=== PATIENT | female | born 1955 | race Caucasian/White ===

== ENCOUNTER 2017-04-19 14:55 | Emergency (ER) | payer SELFPAY ==
[~2017-04-19] VITALS: Ht 152.4 cm; Wt 80.0 kg
[2017-04-19 14:56] VITALS: Ht 152.4 cm; Wt 80.0 kg
[2017-04-19] MEDS ORDERED: ACET500C5 PO (15:13)
--- NOTE | 2017-04-19 15:18 | ERD ---
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 Patient is here recently from [facility]. Patient does not have a primary care doctor yet. Daughter states that she has had sores in her mouth for the last month. She states that she used a mouthwash [place] which helped however she does not have it here with her. She states that the sores are all around her mouth and they are painful. Denies difficulty breathing or swallowing. Denies cough. Patient also states that she took a medicine [id number] for her left leg pain. She states that she has had this pain for the last 5 years and associates it with arthritis. Denies swelling or erythema. States that she uses a cane to walk around. Her pain is not new. Denies chest pain or cough or shortness of breath or difficulty breathing. Denies headache or dizziness. Denies neck pain or neck stiffness or biliary vision. ROS All systems reviewed and are negative except as per history of present illness. Medications Home Meds Active Scripts Acetaminophen* (Tylophen*) 500 Mg Capsule, 1 CAP PO Q6H Y for PAIN AND OR ELEVATED TEMP, #20 CAP Prov:LEXA AKBAR PA-C 04/19/17 PMhx/Soc History of Surgery: No Anesthesia Reaction: No Hx Neurological Disorder: No Hx Respiratory Disorders: No Hx Cardiac Disorders: Yes (Hypertension) Hx Miscellaneous Medical Probl: Yes (Diabetes) Hx Alcohol Use: No Hx Substance Use: No Hx Tobacco Use: No FmHx Family History: No coronary disease, No diabetes, No other Physical Exam Vitals Vital Signs Date Time Temp Pulse Resp B/P Pulse Ox O2 Delivery O2 Flow Rate FiO2 04/19/17 14:56 97.6 77 18 187/80 97 Physical Exam GENERAL: Well-developed, well-nourished female. Appears in no acute distress. HEAD: Normocephalic, atraumatic. EYES: Pupils are equally reactive bilaterally. EOMs grossly intact. No conjunctival erythema. ENT: Moist mucous membranes. No uvula deviation. No kissing tonsils. No exudates. Multiple discoloration seen on all the teeth. Small mouth sores on the pupil and lower lip. NECK: Supple. No lymphadenopathy or thyromegaly. No meningismus. negative kernig. negative brudinski. LUNG: Clear to auscultation bilaterally. No rhonchi, wheezing, rales or coarse breath sounds. HEART: Regular rate and rhythm. No murmurs, rubs or gallops. BACK: No midline tenderness. Extremities: Equal pulses bilaterally. No peripheral clubbing, cyanosis or edema. No unilateral leg swelling. No erythema. NEUROLOGIC: Alert and oriented. Moving all four extremities. 5/5 strength in all extremities. Normal speech. Steady gait using a cane SKIN: Normal color. Warm and dry. No rashes or lesions. Capillary refill < 2 seconds Procedures/MDM ER COURSE: I kept the patient and/or family informed of laboratory and diagnostic imaging results throughout the emergency room course. MEDICAL DECISION MAKING: This is a 7-year-old female with a past medical history of hypertension and diabetes who presents with chronic mouth sores and chronic leg pain. Vital signs were reviewed. Patient is afebrile. Patient is not hypoxic. Patient is not toxic or ill-appearing. Patient has mild mouth sores. Patient does not show signs of respiratory distress. Patient's chronic leg pain is likely related to her arthritis. No x-rays or imaging studies were necessary at this time. Patient does not have headache or dizziness. Patient has slightly elevated blood pressure. Patient does not show signs of hypertensive urgency, emergency or endorgan damage Low suspicion for intracranial hemorrhage, meningitis, intracranial mass, concussion, temporal arteritis, stroke, elevated intracranial pressure, seizure. Low suspicion for dislocation, fracture, septic joint, compartment syndrome, osteomyelitis, avascular necrosis, DVT, Achilles tendon rupture, cellulitis. At this time, unable to rule out any tendon and ligament injuries. DISCHARGE: At this time, patient is stable for discharge and outpatient management with no new complaints during the ER course. Patient was sent home with Tylenol and Magic mouthwash written on a prescription. Names of clinics were given to the area. Patient advised to follow-up with the primary care doctor and establish care for her chronic symptoms. Patient will be discharged home with instructions to recheck for new or worsening symptoms such as fever, nausea, weakness, LOC and to follow up with primary care in the next 1-2 days. Patient was advised to return to the ER for any new or worsening symptoms. Plan was discussed and patient and/or family understands and agrees. Home instructions were given. Departure Diagnosis: Primary Impression: Leg pain Laterality: left Qualified Code: M79.605 - Pain of left lower extremity Additional Impression: Mouth sores Condition: Stable Patient Instructions: When Your Child Has Mouth Sores Referrals: COMMUNITY CLINICS YOU HAVE RECEIVED A MEDICAL SCREENING EXAM AND THE RESULTS INDICATE THAT YOU DO NOT HAVE A CONDITION THAT REQUIRES URGENT TREATMENT IN THE EMERGENCY DEPARTMENT. FURTHER EVALUATION AND TREATMENT OF YOUR CONDITION CAN WAIT UNTIL YOU ARE SEEN IN YOUR DOCTORS OFFICE WITHIN THE NEXT 1-2 DAYS. IT IS YOUR RESPONSIBILITY TO MAKE AN APPOINTMENT FOR FOLOW-UP CARE. IF YOU HAVE A PRIMARY DOCTOR --you should call your primary doctor and schedule an appointment IF YOU DO NOT HAVE A PRIMARY DOCTOR YOU CAN CALL OUR PHYSICIAN REFERRAL HOTLINE AT IF YOU CAN NOT AFFORD TO SEE A PHYSICIAN YOU CAN CHOSE FROM THE FOLLOWING [facility] [address] [facility] [address] [facility] [address] [facility] [address] [facility] [address] [facility] [facility] [facility]. [address] Additional Instructions: Call your primary care doctor TOMORROW for an appointment during the next 1-2 days.See the doctor sooner or return here if your condition worsens before your appointment time. LEXA AKBAR PA-C Apr 19, 2017 15:18
== END 2017-04-19 15:13 | disposition home or self-care (01) ==
LOC: E/R 14:55
DX: M79.605 Pain in left leg (principal); K13.79 Other lesions of oral mucosa; I10 Essential (primary) hypertension; E11.9 Type 2 diabetes mellitus without complications
CPT/HCPCS: 99283

== ENCOUNTER 2017-08-24 18:20 | Inpatient (IN) | payer MEDICAID, OTHER ==
[~2017-08-24] VITALS: Ht 157.5 cm; Wt 75.0 kg
[~2017-08-24 18:20] MED LIST: ACET500C5 PO
[2017-08-24] MEDS ORDERED: PIPER-TAZO 3.375 GM IV (PMX) 100 ML IVPB STA (18:26)
[2017-08-24] MEDS ORDERED: SOD CHLORIDE 0.9% 1,000 ML IV STA ×2 (18:26)
[2017-08-24] MEDS ORDERED: VANCOMYCIN 1 GM (PMX) 250 ML IVPB STA (18:26)
[2017-08-24] MEDS ORDERED: ACETAMINOPHEN 325 MG TAB PO ONE (18:30)
--- NOTE | 2017-08-24 19:15 | RADRPT ---
PROCEDURE: US left lower extremity veins. CLINICAL INDICATION: Left leg pain and swelling. TECHNIQUE: Multiple longitudinal and transverse images of the left lower extremity veins were obta ined with gutiérrez scale and color Doppler imaging. The common femoral vein, femoral vein, and popliteal vein were evaluated. 2D grayscale measurements with compression sonography, pulsed Doppler, color D oppler, and pulsed Doppler with augmentation. COMPARISON: No prior studies are available for comparison. FINDINGS: The left common femoral, femoral and popliteal veins are normally compressible throughout. Color fl ow demonstrates normal filling of the vessels. Normal waveforms are visualized and there is normal response to augmentation. IMPRESSION: 1. No evidence of deep vein thrombosis involving the left lower extremity. RPTAT: QQ .Justice Carrizales MD, MD Date Time Electronically viewed and signed by .Justice Carrizales MD, on 08/24/2017 19:15 .R/
[2017-08-24] MEDS ORDERED: SOD CHLORIDE 0.9% 250 ML IV ONE (19:21)
--- NOTE | 2017-08-24 19:23 | RADRPT ---
PROCEDURE: XR Chest. CLINICAL INDICATION: Chest pain, sepsis TECHNIQUE: A frontal view of the chest was performed. COMPARISON: None FINDINGS: Mild cardiomegaly, vascular congestion, and bibasilar atelectasis are present. No signs of pleural f luid or pneumothorax are seen. The osseous structures and soft tissues are unremarkable. IMPRESSION: Mild cardiomegaly, vascular congestion, and bibasilar atelectasis. RPTAT: QQ .Cindy Beckham MD, MD Date Time Electronically viewed and signed by .Cindy Beckham MD, on 08/24/2017 19:23 .F/
[2017-08-24] MEDS ORDERED: MET25 PO (19:29)
[2017-08-24] MEDS ORDERED: ACETAMINOPHEN 325 MG TAB PO PRN (19:30)
[2017-08-24] MEDS ORDERED: LORA10TA3 PO (19:30)
[2017-08-24] MEDS ORDERED: OMEP20CA16 PO (19:30)
[2017-08-24] MEDS ORDERED: GABA300C16 PO (19:30)
[2017-08-24] MEDS ORDERED: ONDANSETRON 4 MG INJ IV PRN (19:30)
[2017-08-24] MEDS ORDERED: AMLO5TAB4 PO (19:31)
[2017-08-24] MEDS ORDERED: LOSA50TA6 PO (19:31)
[2017-08-24] MEDS ORDERED: INSU100V2 SQ (19:32)
[2017-08-24] MEDS ORDERED: NYST1000 PO (19:33)
[2017-08-24] MEDS ORDERED: BISO10TA16 PO (19:34)
[2017-08-24] MEDS ORDERED: FER325 PO (19:36)
[2017-08-24] MEDS ORDERED: CALC600T24 PO (19:37)
[2017-08-24] MEDS ORDERED: FLUC200T52 PO (19:37)
[2017-08-24] MEDS ORDERED: SULF500T5 PO (19:38)
--- NOTE | 2017-08-24 20:18 | ERA ---
ER Documentation Chief Complaint Date/Time DATE: 08/24/17 TIME: 20:15 Chief Complaint LEFT LOWER LEG REDNESS AND SWELLING FOR THE PAST YEAR . FEVER NOTED. HPI Patient is a 61-year-old female with hypertension diabetes who presents with redness of the left leg. The patient has been on antibiotics as an outpatient. Leg is hot to touch. The symptoms started 4 days ago but were worse last night and this morning. The patient has subjective fever. She is shaking all over. Upon review of old medical records the patient one previous visit to the ER in April 2017. ROS All systems reviewed and are negative except as per history of present illness. Medications Home Meds Reported Medications Sulfasalazine* (Sulfazine*) 500 Mg Tablet, 500 MG PO BID, TAB 08/24/17 Fluconazole* (Fluconazole*) 200 Mg Tablet, 200 MG PO DAILY, TAB 08/24/17 Calcium Carbonate* (Calcium Carbonate*) 600 MG Ca Tab, 600 MG PO BID, TAB 08/24/17 Ferrous Sulfate* (Ferrous Sulfate*) 325 Mg Tabec, 325 MG PO TID, TAB 08/24/17 Bisoprolol Fumarate* (Bisoprolol Fumarate*) 10 Mg Tablet, 10 MG PO DAILY, TAB 08/24/17 Nystatin (Nystatin) 100,000 Unit/1 Ml Oral.susp, 5 ML PO QID, #60 ML 08/24/17 Insulin Lispro Protamin/Lispro (Humalog Mix 50-50 Vial) 100 Unit/1 Ml Vial, 10 UNIT SQ BID, VIAL 08/24/17 Losartan Potassium* (Losartan Potassium*) 50 Mg Tablet, 50 MG PO DAILY, TAB 08/24/17 Amlodipine Besylate* (Norvasc*) 5 Mg Tablet, 5 MG PO DAILY, TAB 08/24/17 Gabapentin* (Gabapentin*) 300 Mg Capsule, 300 MG PO BID, #60 CAP 08/24/17 Loratadine* (Loratadine*) 10 Mg Tablet, 10 MG PO DAILY, #30 TAB 08/24/17 Omeprazole* (Omeprazole*) 20 Mg Capsule.dr, 20 MG PO DAILY, #30 CAP 08/24/17 Methotrexate* (Methotrexate*) 2.5 Mg Tab, 10 MG PO Q7D, TAB 08/24/17 Discontinued Scripts Acetaminophen* (Tylophen*) 500 Mg Capsule, 1 CAP PO Q6H Y for PAIN AND OR ELEVATED TEMP, #20 CAP Prov:LEXA AKBAR PA-C 04/19/17 Allergies Allergies: Coded Allergies: No Known Allergy (Unverified , 08/24/17) PMhx/Soc History of Surgery: No Anesthesia Reaction: No Hx Neurological Disorder: No Hx Respiratory Disorders: No Hx Cardiac Disorders: Yes (Hypertension) Hx Psychiatric Problems: No Hx Miscellaneous Medical Probl: Yes (Diabetes) Hx Alcohol Use: No Hx Substance Use: No Hx Tobacco Use: No Smoking Status: Never smoker Physical Exam Vitals Vital Signs Date Time Temp Pulse Resp B/P Pulse Ox O2 Delivery O2 Flow Rate FiO2 08/24/17 18:28 102.9 91 22 144/65 99 Physical Exam Const: Moderate distress Head: Atraumatic Eyes: Normal Conjunctiva ENT: Normal External Ears, Nose and Mouth. Neck: Full range of motion..~ No meningismus. Resp: Clear to auscultation bilaterally Cardio: Regular rate and rhythm, no murmurs Abd: Soft, non tender, non distended. Normal bowel sounds Skin: Swelling left lower extremity with redness of the left calf and warmth to touch consistent with cellulitis Back: No midline or flank tenderness Ext: Left lower extremity swelling Neur: Awake and alert Psych: Normal Mood and Affect Result Diagram: 08/24/17184908/24/171849 Results 24 hrs Laboratory Tests Test 08/24/17 18:50 White Blood Count 0.710^3/ul Red Blood Count 1.9310^6/ul Hemoglobin 5.7g/dl Hematocrit 17.1% Mean Corpuscular Volume 88.6fl Mean Corpuscular Hemoglobin 29.5pg Mean Corpuscular Hemoglobin Concent 33.3g/dl Red Cell Distribution Width 15.8% Platelet Count 5710^3/UL Mean Platelet Volume 13.2fl Neutrophils % % Lymphocytes % % Monocytes % % Eosinophils % % Basophils % % Nucleated Red Blood Cells % 0.0/100WBC Neutrophils # 10^3/ul Lymphocytes # 10^3/ul Monocytes # 10^3/ul Eosinophils # 10^3/ul Basophils # 10^3/ul Nucleated Red Blood Cells # 10^3/ul Pathologist Review (Hematology) YES Prothrombin Time 15.6Sec Prothrombin Time Ratio 1.2 INR International Normalized Ratio 1.23 Activated Partial Thromboplast Time 35.4Sec Sodium Level 128mmol/L Potassium Level 4.0mmol/L Chloride Level 103mmol/L Carbon Dioxide Level 17mmol/L Anion Gap 12 Blood Urea Nitrogen 44mg/dl Creatinine 4.20mg/dl Glucose Level 190mg/dl Lactic Acid Level 1.7mmol/L Calcium Level 7.8mg/dl Total Bilirubin mg/dl Direct Bilirubin mg/dl Indirect Bilirubin mg/dl Aspartate Amino Transf (AST/SGOT) 322IU/L Alanine Aminotransferase (ALT/SGPT) 110IU/L Alkaline Phosphatase 174IU/L Troponin I 0.085ng/ml Total Protein 6.8g/dl Albumin 2.9g/dl Globulin 3.90g/dl Albumin/Globulin Ratio 0.74 Current Medications Medications (Trade) Dose Ordered Sig/Pauline Route PRN Reason Start Time Stop Time Status Last Admin Dose Admin Vancomycin HCl 250 ml @ 125 mls/hr ONCE STAT IVPB 08/24/17 18:26 08/24/17 20:25 Piperacillin Sod/ Tazobactam Sod 100 ml @ 100 mls/hr ONCE STAT IVPB 08/24/17 18:26 08/24/17 19:25 DC 08/24/17 19:05 Sodium Chloride 1,000 ml @ 1,000 mls/hr Q1H STAT IV 08/24/17 18:26 08/24/17 19:25 DC 08/24/17 19:04 Sodium Chloride (NS) 1,000 ml @ 1,000 mls/hr Q1H STAT IV 08/24/17 18:26 08/24/17 19:25 DC 08/24/17 19:04 Acetaminophen (Tylenol Tab) 650 mg ONCE ONCE PO 08/24/17 18:30 08/24/17 18:32 DC 08/24/17 19:05 Ondansetron HCl (Zofran Inj) 4 mg BRIDGE ORDER PRN IV NAUSEA AND/OR VOMITING 08/24/17 19:30 08/25/17 19:29 Acetaminophen 650 mg 650 mg ER BRIDGE PRN PO MILD PAIN/FEVER 08/24/17 19:30 08/25/17 19:29 Sodium Chloride (NS) 250 ml @ 0 mls/hr Q0M ONCE IV 08/24/17 19:21 08/24/17 19:22 DC Procedures/MDM EKG read by me: Rate/Rhythm: Regular rate and rhythm at a normal rate Intervals: Normal Impression: No evidence of ischemia or arrhythmia Chest x-ray shows no pneumonia or pneumothorax per radiology. Admit MDM: Patient's infectious symptoms have not stabilized and the patient is at risk of rapid decompensation. The patient will be admitted for careful hydration, antibiotic therapy, and infectious source control. Severe Sepsis criteria: Infectious source: Cellulitis End organ damage indicated by: Creatinine greater than 2 Sepsis Management: Time of recognition of sepsis: Upon arrival Within 3 hours of recognition: Blood cultures x 2 before broad-spectrum antibiotics: Yes 30 ml/kg NS bolus Completed Initial lactate 1.7 Repeat lactate pending Time of recognition of septic shock: No septic shock Septic Shock Assessment: Any lactic acid > 4.0 No Persistent hypotension (SBP < 90 or 40 mmHg drop, MAP < 65) despite 30 mL/kg IV fluid bolus No Volume Re-assessment for Septic Shock (post 30 ml/kg bolus): No septic shock at this time Persistent Hypotension Treatment: Comfort care No Central line Not Required Vasopressor started Not required I considered further perfusion assessment with CVP measurement, SCVO2, bedside ultrasound volume assessment, passive leg raise, trial of further fluid bolus. And proceeded with 30 ml/kg fluid bolus of NSS, broad spectrum antibiotics, and admission. The patient has pancytopenia and will be given a transfusion of 2 units of packed red blood cells. Accepting Care Team Current data and ongoing care discussed. Admitting Physician: Dr. Wayne from the panel team as the patient has HCLA risk and insurance manager(s): None Outstanding Data: Culture results and repeat lactic acid Critical Care: Critical care time 35 minutes excluding all billable procedures Emergent fluid management while maintaining close respiratory support. Provision of immediate and broad-spectrum antibiotic therapy. Simultaneous assessment for possible sources in order to direct targeted therapy. Consideration for invasive and chemical support to prevent cardiopulmonary collapse. Departure Diagnosis: Primary Impression: Severe sepsis Additional Impressions: Acute renal failure Qualified Code: N17.9 - Acute renal failure, unspecified acute renal failure type Anemia Qualified Code: D64.9 - Anemia, unspecified type Cellulitis Qualified Code: L03.116 - Cellulitis of left lower extremity Pancytopenia Condition: Serious HUMPHREY RICKS MD Aug 24, 2017 20:17
[2017-08-24] MEDS ORDERED: LORAZEPAM 2 MG INJ IV ONE (20:30)
[2017-08-25] VITALS (7 sets, daily range): BP systolic 128–180; BP diastolic 60–83; PULSE 81–110; RESP 18–22; TEMP 98
[2017-08-25] MEDS ORDERED: ALBUTEROL/IPRATROPIUM (NEB) 3 ML AMP HHN PRN (08:00)
[2017-08-25] MEDS ORDERED: ACETAMINOPHEN 325 MG TAB PO PRN (08:00)
[2017-08-25] MEDS ORDERED: NACL 0.9% 3 ML SYG IV SCH (08:00)
[2017-08-25] MEDS ORDERED: VANCOMYCIN IV PER PHARMACY XX SCH (08:00)
[2017-08-25] MEDS ORDERED: CEFEPIME 1GM/50 ML (PMX) 50 ML IVPB SCH (09:00)
[2017-08-25] MEDS ORDERED: NYSTATIN SUSP 100000 UNITS/ML 60 ML BTL PO SCH (09:00)
--- NOTE | 2017-08-25 09:20 | HP ---
Date/Time of Note Date/Time of Note DATE: 08/25/17 TIME: 09:08 Assessment/Plan VTE Prophylaxis VTE Prophylaxis Intervention: SCD's Assessment/Plan Assessment/Plan 1. Sepsis, secondary to left lower extremity cellulitis -IV antibiotic -Follow-up culture results -ID consult 2. Pancytopenia including with anemia and neutropenia: -Neutropenic precaution -Blood transfusion -FOBT -Check for iron, Vit B12, and folate deficiency -Abdominal ultrasound for evaluation of splenomegaly and liver disease -Hematology/oncology consult. Patient may need a bone marrow biopsy -Consider GI consult 3. CKD, likely secondary to -Obtain a renal ultrasound and nephrology consult 4. Abnormal LFTs -Abdominal ultrasound -Hep panel 5. Hyponatremia -NS IVF for now HPI/ROS Admit Date/Time Admit Date/Time Hx of Present Illness This is a 61-year-old female with a history of hypertension, insulin-dependent diabetes, CKD who was brought to the ER for left lower leg swelling and redness. Patient was diagnosed with a cellulitis as outpatient and has been taking antibiotic without significant improvement. She reported fever and generalized weakness. When she presented to the ER, she was febrile with a temperature of almost 103. She has a several lab abnormalities including a hemoglobin of 5.7 with MCV of , sodium 128, BUN 44, creatinine 4.8 AST in the 300s and ALT in the 100s, alk phos 174. Also thrombocytopenic with a platelet of 57 and neutropenic with a WBC of 0.7. Left lower extremity ultrasound was negative for DVT. Denied hematemesis, dark stool, BRBPR or vaginal bleeding. PMH/Family/Social Social History Smoking Status: Never smoker Exam/Review of Systems Vital Signs Vitals Vital Signs Date Time Temp Pulse Resp B/P Pulse Ox O2 Delivery O2 Flow Rate FiO2 08/25/17 08:29 94 20 105/91 100 Room Air 08/25/17 05:10 97.6 Exam Constitutional: other (No acute distress) Head: atraumatic, normocephalic Eyes: EOMI, PERRL Respiratory: clear to auscultation, normal air movement Cardiovascular: nl pulses, regular rate and rhythm Gastrointestinal: soft Extremities: other (Left lower extremity erythema and swelling) Labs Result Diagram: 08/24/17184908/24/171849 Medications Medications Current Medications Ondansetron HCl (Zofran Inj) 4 mg Q6H PRN IV NAUSEA AND/OR VOMITING; Start 10/01 at 08:00 Acetaminophen (Tylenol Tab) 650 mg Q6H PRN PO PAIN LEVEL 1-3 OR FEVER; Start 08/25/17 at 08:00 Morphine Sulfate (morphine) 2 mg Q4H PRN IV SEVERE PAIN LEVEL 7-10; Start 10/01 at 08:00 Amlodipine Besylate (Norvasc) 5 mg DAILY PO ; Start 08/25/17 at 09:00 Bisoprolol Fumarate (Zebeta) 10 mg DAILY PO ; Start 08/25/17 at 09:00 Ferrous Sulfate (Ferrous Sulfate (Ec)) 325 mg TID PO ; Start 08/25/17 at 09:00 Gabapentin (Neurontin) 300 mg BID PO ; Start 08/25/17 at 09:00 Loratadine (Claritin) 10 mg DAILY PO ; Start 08/25/17 at 09:00 Losartan Potassium (Cozaar) 50 mg DAILY PO ; Start 08/25/17 at 09:00 Methotrexate (Methotrexate) 10 mg Q7D PO ; Start 08/25/17 at 08:00; Status UNV Nystatin (Nystatin Susp) 500,000 units QID PO ; Start 08/25/17 at 09:00 Sulfasalazine 500 mg 500 mg BID PO ; Start 08/25/17 at 09:00 Cefepime HCl (Maxipime 1gm/50 ml (Pmx)) 50 ml @ 100 mls/hr Q12 IVPB ; Start at 09:00 DARRYL CORONADO MD Aug 25, 2017 09:20
--- NOTE | 2017-08-25 10:22 | RADRPT ---
PROCEDURE: US Abdomen and retroperitoneal complete. CLINICAL INDICATION: Elevated LFTs TECHNIQUE: Multiple real-time images were acquired of the patient's abdomen and retroperitoneum ut ilizing a high resolution transducer. COMPARISON: None FINDINGS: The liver demonstrates normal echogenicity. The liver is normal in size and no focal solid lesions are seen. The portal vein is patent with normal direction of flow. No intrahepatic biliary dilatat ion is seen. The liver measures 14.5 cm in length. No gallstones are identified within the gallbladder. There is no pericholecystic fluid or gallbladd er wall thickening. The common bile duct measures 4 mm in maximal dimension. The visualized portions of the pancreas are unremarkable. The tail of the pancreas is not seen. The spleen is normal in size. The spleen measures 10.4 cm in length. There is no evidence of ascites. There is a small left pleural effusion. The kidneys are normal in size, and demonstrate normal cortical echogenicity and cortical thickness. The right kidney measures 8.4 cm. The left kidney measures 9.4 cm. There is no evidence of hydro nephrosis. There are no kidney stones. The proximal aorta measures 2.1 cm in transverse dimension. RPTAT: AA IMPRESSION: Normal appearance of the liver. Small left pleural effusion. .Edilberto Bal MD, MD Date Time Electronically viewed and signed by .Edilberto Bal MD, MD on 08/25/2017 10:21 .S/
[2017-08-25] MEDS ORDERED: NYSTATIN SUSP 5 ML CUP PO SCH (13:00)
[2017-08-25] MEDS ORDERED: GLUCAGON 1 MG INJ IM PRN (14:00)
[2017-08-25] MEDS ORDERED: GLUCOSE GEL 15 GRAM TUBE PO PRN ×2 (14:00)
[2017-08-25] MEDS ORDERED: DEXTROSE 50% 50 ML SYRINGE IV PRN (14:00)
[2017-08-25] MEDS ORDERED: GLUCOSE GEL 15 GRAM TUBE BUCCAL PRN (14:00)
[2017-08-25] MEDS: FERROUS SULFATE (EC) 325 MG TAB PO SCH ×3 (14:30→20:34)
[2017-08-25] MEDS: SULFASALAZINE 500 MG TAB PO SCH ×2 (14:30→20:34)
[2017-08-25] MEDS: LORATADINE 10 MG TAB PO SCH (14:30)
[2017-08-25] MEDS: INSULIN ASPART [NOVOLOG] 3 ML PEN SC SCH ×3 (14:30→20:32)
[2017-08-25] MEDS: GABAPENTIN 300 MG CAP PO SCH ×2 (14:30→20:34)
[2017-08-25] MEDS: AMLODIPINE 5 MG TAB PO SCH (14:31)
[2017-08-25] MEDS: LOSARTAN 50 MG TAB PO SCH (14:31)
[2017-08-25] MEDS: BISOPROLOL 5 MG TAB PO SCH (14:32)
[2017-08-25] MEDS: INSULIN GLARGINE [LANtus] 3 ML PEN SC SCH (14:38)
[2017-08-25] MEDS ORDERED: INFLUENZA VIRUS VACCINE 0.5 ML SYG IM* ONE (16:00)
--- NOTE | 2017-08-25 16:15 | PN ---
Date/Time of Note Date/Time of Note DATE: 08/25/17 TIME: 15:59 Assessment/Plan VTE Prophylaxis VTE Prophylaxis Intervention: other Assessment/Plan Assessment/Plan 1. Sepsis, secondary to left lower extremity cellulitis, on vancomycin and cefepime 2. Pancytopenia including with anemia and neutropenia, unclear etiology, 2 units PRBC today, follow up with hematology, Neutropenic precaution 3. Renal failure, likely chronic, follow up with renal US, BMP, consult nephrology 4. Abnormal LFTs, -Abdominal ultrasound, Hep panel 5. Hyponatremia, NS IVF for now 6. Methotrexate was started when she was in [facility], for leg pain about one year ago. she recently moved from [facility] about 6 months ago, i will hold methotrexate since the indication is clear and side effects 7. HTN, antihypertensives 8. DM, on insulin Subjective 24 Hr Interval Summary Free Text/Dictation pain on left leg Exam/Review of Systems Vital Signs Vitals Vital Signs Date Time Temp Pulse Resp B/P Pulse Ox O2 Delivery O2 Flow Rate FiO2 08/25/17 15:25 103.0 107 22 180/74 08/25/17 15:10 Room Air 08/25/17 12:03 100 Exam Constitutional: alert, oriented, well developed Psych: nl mood/affect, no complaints Head: atraumatic, normocephalic Eyes: EOMI, PERRL, nl conjunctiva, nl lids, nl sclera ENMT: nl external ears & nose, nl lips & teeth Neck: non-tender, supple Respiratory: clear to auscultation, normal air movement, No congested cough, No crackles/rales, No diminished breath sounds, No intercostal retraction, No labored breathing, No other, No respirations, No tactile fremitus, No wheezing Cardiovascular: nl pulses, regular rate and rhythm, No S3, No S4, No bruits, No diastolic murmur, No edema, No gallop, No irregular rhythm, No jugular venous distention (JVD), No murmurs/extra sounds, No other, No rub, No systolic murmur Gastrointestinal: nl liver, spleen, non-tender, soft, No ascites, No bowel sounds, No distended, No firm, No hepatomegaly, No mass , No other, No rebound or guarding, No splenomegaly, No surgical scars, No tender Extremities: other (left lower extremity from knee down with redness, swelling , and warmth, tenderness) 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, nl mental status, nl speech, nl strength Results Result Diagram: 08/25/17 1330 08/25/17 1330 Results 24 hrs Laboratory Tests Test 08/24/17 18:50 08/24/17 21:22 08/24/17 23:32 08/25/17 13:30 White Blood Count 0.7 L 0.5 #L Red Blood Count 1.93 L 1.83 L Hemoglobin 5.7 *L 5.4 *L Hematocrit 17.1 L 16.3 L Mean Corpuscular Volume 88.6 89.1 Mean Corpuscular Hemoglobin 29.5 29.5 Mean Corpuscular Hemoglobin Concent 33.3 33.1 Red Cell Distribution Width 15.8 H 15.4 H Platelet Count 57 L 22 #*L Mean Platelet Volume 13.2 H 10.7 H Neutrophils % Segmented Neutrophils % (Manual) 5 L 8 L Lymphocytes % Lymphocytes % (Manual) 73 H 72 H Reactive Lymphocytes % (Manual) 10 H Monocytes % Monocytes % (Manual) 5 Eosinophils % Eosinophils % (Manual) 6 18 H Basophils % Nucleated Red Blood Cells % 0.0 0.0 Neutrophils # Absolute Lymphocytes (Manual) 0.5 L 0.3 L Lymphocytes # Reactive Lymphocytes # 0.0 Monocytes # Absolute Monocytes (Manual) 0.0 L Eosinophils # Basophils # Nucleated Red Blood Cells # Pathologist Review (Hematology) YES Platelet Morphology Comment @See below Poikilocytosis 3+ Anisocytosis 2+ 1+ Macrocytosis 2+ Prothrombin Time 15.6 H Prothrombin Time Ratio 1.2 INR International Normalized Ratio 1.23 Activated Partial Thromboplast Time 35.4 H Sodium Level 128 L 133 L Potassium Level 4.0 4.2 Chloride Level 103 110 Carbon Dioxide Level 17 L 17 L Anion Gap 12 10 Blood Urea Nitrogen 44 H 38 H Creatinine 4.20 H 3.91 H Glucose Level 190 143 # Lactic Acid Level 1.7 0.6 0.6 Calcium Level 7.8 L 7.9 L Total Bilirubin Direct Bilirubin Indirect Bilirubin Aspartate Amino Transf (AST/SGOT) 322 H 114 H Alanine Aminotransferase (ALT/SGPT) 110 H 84 H Alkaline Phosphatase 174 H 137 H Troponin I 0.085 Total Protein 6.8 6.5 Albumin 2.9 L 2.5 L Globulin 3.90 H 4.00 H Albumin/Globulin Ratio 0.74 0.62 Band Neutrophils % (Manual) 1 Neutrophils # (Manual) 0.0 L Band Neutrophils # 0.0 Platelet Estimate SIG DECREASED Giant Platelets 1 H Polychromasia 3+ Microcytosis 1+ Iron Level 48 Total Iron Binding Capacity 144 L Percent Iron Saturation 33 Ferritin Pending Triglycerides Level 201 H Cholesterol Level 136 LDL Cholesterol, Calculated 78 HDL Cholesterol 18 L Cholesterol/HDL Ratio 7.5 Vitamin B12 Level 942 H Folate 4.9 Hepatitis B Surface Antigen NEGATIVE Hepatitis B Surface Antibody NEGATIVE Hepatitis C Antibody Pending Test 08/25/17 13:56 08/25/17 14:00 Bedside Glucose 147 Urine Color YELLOW Urine Clarity CLEAR Urine pH 6.0 Urine Specific [place] 1.012 Urine Ketones NEGATIVE Urine Nitrite NEGATIVE Urine Bilirubin NEGATIVE Urine Urobilinogen NEGATIVE Urine Leukocyte Esterase NEGATIVE Urine Microscopic RBC 2 Urine Microscopic WBC 1 Urine Squamous Epithelial Cells FEW Urine Bacteria FEW A Urine Hemoglobin 1+ H Urine Random Sodium 48 Urine Random Potassium 28.4 Urine Glucose 2+ H Urine Total Protein 3+ H Medications Medications Current Medications Ondansetron HCl (Zofran Inj) 4 mg Q6H PRN IV NAUSEA AND/OR VOMITING; Start 10/01 at 08:00 Acetaminophen (Tylenol Tab) 650 mg Q6H PRN PO PAIN LEVEL 1-3 OR FEVER Last administered on 08/25/17 15:22; Admin Dose 650 MG; Start 08/25/17 at 08:00 Morphine Sulfate (morphine) 2 mg Q4H PRN IV SEVERE PAIN LEVEL 7-10; Start 10/01 at 08:00 Amlodipine Besylate (Norvasc) 5 mg DAILY PO Last administered on 08/25/17 14: 31; Admin Dose 5 MG; Start 08/25/17 at 09:00 Bisoprolol Fumarate (Zebeta) 10 mg DAILY PO Last administered on 08/25/17 14: 32; Admin Dose 10 MG; Start 08/25/17 at 09:00 Ferrous Sulfate (Ferrous Sulfate (Ec)) 325 mg TID PO Last administered on 08/25 14:32; Admin Dose 325 MG; Start 08/25/17 at 09:00 Gabapentin (Neurontin) 300 mg BID PO Last administered on 08/25/17 14:30; Admin Dose 300 MG; Start 08/25/17 at 09:00 Loratadine (Claritin) 10 mg DAILY PO ; Start 08/25/17 at 09:00 Losartan Potassium (Cozaar) 50 mg DAILY PO Last administered on 08/25/17 14: 31; Admin Dose 50 MG; Start 08/25/17 at 09:00 Methotrexate (Methotrexate) 10 mg Fr@09 PO ; Start 08/27/17 at 09:00 Sulfasalazine (Azulfidine) 500 mg BID PO Last administered on 08/25/17 14:30 ; Admin Dose 500 MG; Start 08/25/17 at 09:00 Diagnostic Test (Pha) (Accu-Chek) 1 ea 02 XX ; Start 08/26/17 at 02:00 Insulin Glargine 11 unit 11 unit DAILY@10 SC Last administered on 08/25/17 14 :38; Admin Dose 11 UNIT; Start 08/25/17 at 10:00 Cefepime HCl (Maxipime 1gm/50 ml (Pmx)) 50 ml @ 100 mls/hr Q24H IVPB ; Start 08/25/17 at 10:00 Miscellaneous Information 1 ea NOTE XX ; Start 08/25/17 at 14:00 Glucose (Glutose) 15 gm Q15M PRN PO DECREASED GLUCOSE; Start 08/25/17 at 14:00 Glucose (Glutose) 22.5 gm Q15M PRN PO DECREASED GLUCOSE; Start 08/25/17 at 14: 00 Dextrose (D50w Syringe) 25 ml Q15M PRN IV DECREASED GLUCOSE; Start 08/25/17 at 14:00 Dextrose (D50w Syringe) 50 ml Q15M PRN IV DECREASED GLUCOSE; Start 08/25/17 at 14:00 Glucagon (Glucagen) 1 mg Q15M PRN IM DECREASED GLUCOSE; Start 08/25/17 at 14: 00 Glucose (Glutose) 15 gm Q15M PRN BUCCAL DECREASED GLUCOSE; Start 08/25/17 at 14:00 Miscellaneous Information (*Rx Drug Level Order Reminder*) VANCO RANDOM LEVEL... ONCE ONCE XX ; Start 08/26/17 at 05:00; Stop 08/26/17 at 05:01 Influenza Virus Vaccine (Fluzone) 0.5 ml ONCE ONCE IM* ; Start 08/25/17 at 16: 00; Stop 08/25/17 at 16:01 NATHANIEL LAGOS MD Aug 25, 2017 16:09
[2017-08-25] MEDS: CEFEPIME 1GM/50 ML (PMX) 50 ML IVPB SCH (17:00)
[2017-08-25] MEDS: morphine 2 MG INJ IV PRN (17:51)
[2017-08-25] MEDS: ACETAMINOPHEN 325 MG TAB PO PRN (20:33)
[2017-08-26] MEDS: ACCU-CHEK XX SCH (02:00)
[2017-08-26 02:10] VITALS: BP 125/58; PULSE 80; RESP 18
[2017-08-26 07:00] VITALS: BP 128/60; PULSE 80; RESP 18
[2017-08-26] MEDS: INSULIN ASPART [NOVOLOG] 3 ML PEN SC SCH ×4 (07:35→21:00)
[2017-08-26] MEDS: CEFEPIME 1GM/50 ML (PMX) 50 ML IVPB SCH (10:00)
[2017-08-26] MEDS: LOSARTAN 50 MG TAB PO SCH (10:36)
[2017-08-26] MEDS: FERROUS SULFATE (EC) 325 MG TAB PO SCH ×3 (10:36→21:08)
[2017-08-26] MEDS: GABAPENTIN 300 MG CAP PO SCH (10:37)
[2017-08-26] MEDS: SULFASALAZINE 500 MG TAB PO SCH ×2 (10:37→21:08)
[2017-08-26] MEDS: BISOPROLOL 5 MG TAB PO SCH (10:38)
[2017-08-26] MEDS: AMLODIPINE 5 MG TAB PO SCH (10:38)
[2017-08-26] MEDS: LORATADINE 10 MG TAB PO SCH (10:39)
[2017-08-26] MEDS: INSULIN GLARGINE [LANtus] 3 ML PEN SC SCH (10:46)
[2017-08-26] MEDS: VANCOMYCIN 1 GM in NS 250 ML IVPB SCH (11:30)
--- NOTE | 2017-08-26 13:34 | PN ---
Date/Time of Note Date/Time of Note DATE: 08/26/17 TIME: 13:29 Assessment/Plan VTE Prophylaxis VTE Prophylaxis Intervention: other (thrombocytopenia) Assessment/Plan Assessment/Plan 1. Sepsis, secondary to left lower extremity cellulitis, on vancomycin and cefepime 2. Pancytopenia including with anemia and neutropenia, unclear etiology, 2 units PRBC 08/25/2017, follow up with hematology, Neutropenic precaution, follow up with CBC, stop methotrexate and neurontin 3. Renal failure, likely chronic, follow up with renal US, BMP, consult nephrology 4. Abnormal LFTs, negative hepatitis panel and US 5. Hyponatremia, NS IVF for now 6. Methotrexate was started when she was in [facility], for leg pain about one year ago. she recently moved from [facility] about 6 months ago, i will hold methotrexate since the indication is clear and side effects 7. HTN, antihypertensives 8. DM, on insulin Subjective 24 Hr Interval Summary Free Text/Dictation no active bleeding, still with pain on left leg Exam/Review of Systems Vital Signs Vitals Vital Signs Date Time Temp Pulse Resp B/P Pulse Ox O2 Delivery O2 Flow Rate FiO2 08/26/17 02:10 97.5 80 18 125/58 100 Room Air Intake and Output 08/25/17 08/25/17 08/26/17 15:00 23:00 07:00 Intake Total 750 ml Output Total 400 ml Balance 350 ml Exam Constitutional: alert, oriented, well developed Head: atraumatic, normocephalic Eyes: EOMI, PERRL, nl conjunctiva, nl lids, nl sclera ENMT: mucosa pink and moist, nl external ears & nose, nl lips & teeth, nl nasal mucosa & septum Respiratory: clear to auscultation, normal air movement, No congested cough, No crackles/rales, No diminished breath sounds, No intercostal retraction, No labored breathing, No other, No respirations, No tactile fremitus, No wheezing Cardiovascular: nl pulses, regular rate and rhythm, No S3, No S4, No bruits, No diastolic murmur, No edema, No gallop, No irregular rhythm, No jugular venous distention (JVD), No murmurs/extra sounds, No other, No rub, No systolic murmur Gastrointestinal: nl liver, spleen, non-tender, soft, No ascites, No bowel sounds, No distended, No firm, No hepatomegaly, No mass , No other, No rebound or guarding, No splenomegaly, No surgical scars, No tender Extremities: other (left lower extremity swelling with redness and warmth, tenderness) Neurological: 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 intact, nl mental status, nl speech, nl strength Results Result Diagram: 08/26/17 0606 08/26/17 0606 Results 24 hrs Laboratory Tests Test 08/25/17 13:30 08/25/17 13:56 08/25/17 14:00 08/25/17 17:09 White Blood Count 0.5 #L Red Blood Count 1.83 L Hemoglobin 5.4 *L Hematocrit 16.3 L Mean Corpuscular Volume 89.1 Mean Corpuscular Hemoglobin 29.5 Mean Corpuscular Hemoglobin Concent 33.1 Red Cell Distribution Width 15.4 H Platelet Count 22 #*L Mean Platelet Volume 10.7 H Neutrophils % Segmented Neutrophils % (Manual) 8 L Band Neutrophils % (Manual) 1 Lymphocytes % Lymphocytes % (Manual) 72 H Monocytes % Eosinophils % Eosinophils % (Manual) 18 H Basophils % Nucleated Red Blood Cells % 0.0 Neutrophils # Neutrophils # (Manual) 0.0 L Band Neutrophils # 0.0 Absolute Lymphocytes (Manual) 0.3 L Lymphocytes # Monocytes # Eosinophils # Basophils # Nucleated Red Blood Cells # Platelet Estimate SIG DECREASED Giant Platelets 1 H Polychromasia 3+ Anisocytosis 1+ Microcytosis 1+ Sodium Level 133 L Potassium Level 4.2 Chloride Level 110 Carbon Dioxide Level 17 L Anion Gap 10 Blood Urea Nitrogen 38 H Creatinine 3.91 H Glucose Level 143 # Hemoglobin A1c Calcium Level 7.9 L Iron Level 48 Total Iron Binding Capacity 144 L Percent Iron Saturation 33 Ferritin 1920.0 H Total Bilirubin Direct Bilirubin Indirect Bilirubin Aspartate Amino Transf (AST/SGOT) 114 H Alanine Aminotransferase (ALT/SGPT) 84 H Alkaline Phosphatase 137 H Total Protein 6.5 Albumin 2.5 L Globulin 4.00 H Albumin/Globulin Ratio 0.62 Triglycerides Level 201 H Cholesterol Level 136 LDL Cholesterol, Calculated 78 HDL Cholesterol 18 L Cholesterol/HDL Ratio 7.5 Vitamin B12 Level 942 H Folate 4.9 Hepatitis B Surface Antigen NEGATIVE Hepatitis B Surface Antibody NEGATIVE Hepatitis C Antibody NEGATIVE Bedside Glucose 147 190 Urine Color YELLOW Urine Clarity CLEAR Urine pH 6.0 Urine Specific [place] 1.012 Urine Ketones NEGATIVE Urine Nitrite NEGATIVE Urine Bilirubin NEGATIVE Urine Urobilinogen NEGATIVE Urine Leukocyte Esterase NEGATIVE Urine Microscopic RBC 2 Urine Microscopic WBC 1 Urine Squamous Epithelial Cells FEW Urine Bacteria FEW A Urine Hemoglobin 1+ H Urine Random Sodium 48 Urine Random Potassium 28.4 Urine Glucose 2+ H Urine Total Protein 3+ H Test 08/25/17 20:31 08/26/17 06:06 08/26/17 07:33 Bedside Glucose 126 101 White Blood Count 0.7 #L Red Blood Count 2.62 #L Hemoglobin 7.7 #L Hematocrit 22.8 #L Mean Corpuscular Volume 87.0 Mean Corpuscular Hemoglobin 29.4 Mean Corpuscular Hemoglobin Concent 33.8 Red Cell Distribution Width 15.2 H Platelet Count 19 *L Mean Platelet Volume 11.8 H Neutrophils % Lymphocytes % Monocytes % Eosinophils % Basophils % Nucleated Red Blood Cells % 0.0 Neutrophils # Lymphocytes # Monocytes # Eosinophils # Basophils # Nucleated Red Blood Cells # Sodium Level 133 L Potassium Level 3.9 Chloride Level 110 Carbon Dioxide Level 17 L Anion Gap 10 Blood Urea Nitrogen 44 H Creatinine 3.93 H Glucose Level 88 # Calcium Level 8.2 L Phosphorus Level 5.3 H Magnesium Level 1.9 Random Vancomycin Level 9.6 Medications Medications Current Medications Ondansetron HCl (Zofran Inj) 4 mg Q6H PRN IV NAUSEA AND/OR VOMITING; Start 10/01 at 08:00 Morphine Sulfate (morphine) 2 mg Q4H PRN IV SEVERE PAIN LEVEL 7-10 Last administered on 08/25/17 17:51; Admin Dose 2 MG; Start 08/25/17 at 08:00 Amlodipine Besylate (Norvasc) 5 mg DAILY PO Last administered on 08/26/17 10: 38; Admin Dose 5 MG; Start 08/25/17 at 09:00 Bisoprolol Fumarate (Zebeta) 10 mg DAILY PO Last administered on 08/26/17 10: 38; Admin Dose 10 MG; Start 08/25/17 at 09:00 Ferrous Sulfate (Ferrous Sulfate (Ec)) 325 mg TID PO Last administered on 08/26 10:36; Admin Dose 325 MG; Start 08/25/17 at 09:00 Gabapentin (Neurontin) 300 mg BID PO Last administered on 08/26/17 10:37; Admin Dose 300 MG; Start 08/25/17 at 09:00 Loratadine (Claritin) 10 mg DAILY PO Last administered on 08/26/17 10:39; Admin Dose 10 MG; Start 08/25/17 at 09:00 Losartan Potassium (Cozaar) 50 mg DAILY PO Last administered on 08/26/17 10: 36; Admin Dose 50 MG; Start 08/25/17 at 09:00 Sulfasalazine (Azulfidine) 500 mg BID PO Last administered on 08/26/17 10:37 ; Admin Dose 500 MG; Start 08/25/17 at 09:00 Diagnostic Test (Pha) (Accu-Chek) 1 ea 02 XX ; Start 08/26/17 at 02:00 Insulin Glargine 11 unit 11 unit DAILY@10 SC Last administered on 08/26/17 10 :46; Admin Dose 11 UNIT; Start 08/25/17 at 10:00 Cefepime HCl (Maxipime 1gm/50 ml (Pmx)) 50 ml @ 100 mls/hr Q24H IVPB Last administered on 08/26/17 10:00; Admin Dose 100 MLS/HR; Start 08/25/17 at 10: 00 Miscellaneous Information 1 ea NOTE XX ; Start 08/25/17 at 14:00 Glucose (Glutose) 15 gm Q15M PRN PO DECREASED GLUCOSE; Start 08/25/17 at 14:00 Glucose (Glutose) 22.5 gm Q15M PRN PO DECREASED GLUCOSE; Start 08/25/17 at 14: 00 Dextrose (D50w Syringe) 25 ml Q15M PRN IV DECREASED GLUCOSE; Start 08/25/17 at 14:00 Dextrose (D50w Syringe) 50 ml Q15M PRN IV DECREASED GLUCOSE; Start 08/25/17 at 14:00 Glucagon (Glucagen) 1 mg Q15M PRN IM DECREASED GLUCOSE; Start 08/25/17 at 14: 00 Glucose (Glutose) 15 gm Q15M PRN BUCCAL DECREASED GLUCOSE; Start 08/25/17 at 14:00 Acetaminophen 650 mg 650 mg Q4H PRN PO PAIN AND OR ELEVATED TEMP Last administered on 08/25/17 20:33; Admin Dose 650 MG; Start 08/25/17 at 20:30 Vancomycin HCl (Vancocin) 250 ml @ 125 mls/hr Q72H IVPB Last administered on 10/12/17at 11:30; Admin Dose 125 MLS/HR; Start 08/26/17 at 10:00 NATHANIEL LAGOS MD Aug 26, 2017 13:34
[2017-08-26 15:00] VITALS: BP 123/60; PULSE 80; RESP 20
[2017-08-26] MEDS: ACETAMINOPHEN 325 MG TAB PO PRN (17:06)
[2017-08-26] MEDS: morphine 2 MG INJ IV PRN (17:08)
[2017-08-26 20:00] VITALS: BP 110/59; RESP 20
[2017-08-27 01:09] VITALS: BP 141/65; RESP 20
[2017-08-27] MEDS: morphine 2 MG INJ IV PRN ×2 (01:48→08:32)
[2017-08-27] MEDS: ACCU-CHEK XX SCH ×2 (02:00→21:13)
[2017-08-27 07:30] VITALS: BP 138/69; RESP 20
[2017-08-27] MEDS: INSULIN ASPART [NOVOLOG] 3 ML PEN SC SCH ×4 (08:14→21:00)
[2017-08-27] MEDS: FERROUS SULFATE (EC) 325 MG TAB PO SCH (08:31)
[2017-08-27] MEDS: BISOPROLOL 5 MG TAB PO SCH (08:31)
[2017-08-27] MEDS: LORATADINE 10 MG TAB PO SCH (08:31)
[2017-08-27] MEDS: LOSARTAN 50 MG TAB PO SCH (08:32)
[2017-08-27] MEDS: AMLODIPINE 5 MG TAB PO SCH (08:32)
[2017-08-27] MEDS: SULFASALAZINE 500 MG TAB PO SCH ×2 (08:32→21:07)
[2017-08-27] MEDS ORDERED: METHOTREXATE 2.5 MG TAB PO SCH (09:00)
--- NOTE | 2017-08-27 09:23 | CONS ---
Date/Time of Note Date/Time of Note DATE: 08/27/17 TIME: 09:10 Assessment/Plan Assessment/Plan Additional Assessment/Plan 61 yo woman with cellulitis of the left leg on antibiotics but she also has severe pancytopenia. Neutropenia is severe and is likely due to the methotrexate. Note that there is substantial azotemia also. I am not clear as to why methotrexate was ever ordered but I would certainly stop it now. Platelets and Hgb are at safe albeit low range. I would give filgrastim as well. In view of the severe azotemia, I would also check EPO level and consider Procrit use although this will not help the leucopenia or the thrombocytopenia. If old records can be obtained, it would be helpful. I am not requesting bone marrow now but that may be a consideration later. Note that iron, B12 and folate studies are normal. Will stop iron. Consultation Date/Type/Reason Admit Date/Time Date of Consultation: Aug 27, 2017 Type of Consultation: Hematology Reason for Consultation pancytopenia Referring Provider: NATHANIEL ROCHA MD Hx of Present Illness Unable to converse fully due to language issue. I have spoken to Dr. Rocha and reviewed chart. 61 yo woman admitted for cellulitis of lower left leg. History of diabetes, hypertension, obesity, azotemia, abnormal liver studies and methotrexate administration for unclear diagnosis ( leg pain). Psychological: nl mood/affect, no complaints Social History Smoking Status: Never smoker Exam/Review of Systems Vital Signs Vitals Vital Signs Date Time Temp Pulse Resp B/P Pulse Ox O2 Delivery O2 Flow Rate FiO2 08/27/17 07:30 99.3 94 20 138/69 98 08/26/17 20:00 Room Air Intake and Output 08/26/17 08/26/17 08/27/17 15:00 23:00 07:00 Intake Total 120 ml Balance 120 ml Exam Constitutional: alert Head: normocephalic Neck: supple Cardiovascular: regular rate and rhythm Gastrointestinal: nl liver, spleen, non-tender, soft Extremities: other (severe cellulitis of the left lower leg) Results Result Diagram: 08/27/17 0508/[id number]/17519 Results 24 hrs Laboratory Tests Test 08/26/17 15:29 08/26/17 18:23 08/26/17 21:05 08/27/17 05:20 Bedside Glucose 88 114 150 White Blood Count 0.5 #L Red Blood Count 2.70 L Hemoglobin 7.9 L Hematocrit 23.3 L Mean Corpuscular Volume 86.3 Mean Corpuscular Hemoglobin 29.3 Mean Corpuscular Hemoglobin Concent 33.9 Red Cell Distribution Width 14.7 H Platelet Count 52 #L Mean Platelet Volume 11.4 H Neutrophils % Lymphocytes % Lymphocytes % (Manual) 84 H Monocytes % Eosinophils % Eosinophils % (Manual) 16 H Basophils % Nucleated Red Blood Cells % 3 H Neutrophils # Absolute Lymphocytes (Manual) 0.4 L Lymphocytes # Monocytes # Eosinophils # Basophils # Nucleated Red Blood Cells # Platelet Estimate DECREASED Giant Platelets 3 H Polychromasia 1+ Poikilocytosis 3+ Anisocytosis 1+ Sodium Level 134 L Potassium Level 4.0 Chloride Level 113 H Carbon Dioxide Level 15 L Anion Gap 10 Blood Urea Nitrogen 44 H Creatinine 3.76 H Glucose Level 106 Calcium Level 7.8 L Total Bilirubin Direct Bilirubin Indirect Bilirubin Aspartate Amino Transf (AST/SGOT) 35 Alanine Aminotransferase (ALT/SGPT) 42 Alkaline Phosphatase 127 H Total Protein 5.9 L Albumin 2.2 L Globulin 3.70 H Albumin/Globulin Ratio 0.59 Test 08/27/17 05:27 08/27/17 08:13 Lab Scanned Report BLOOD TRANSFUSION Bedside Glucose 108 Medications Medications Current Medications Ondansetron HCl (Zofran Inj) 4 mg Q6H PRN IV NAUSEA AND/OR VOMITING; Start 10/01 at 08:00 Morphine Sulfate (morphine) 2 mg Q4H PRN IV SEVERE PAIN LEVEL 7-10 Last administered on 08/27/17 08:32; Admin Dose 2 MG; Start 08/25/17 at 08:00 Amlodipine Besylate (Norvasc) 5 mg DAILY PO Last administered on 08/27/17 08: 32; Admin Dose 5 MG; Start 08/25/17 at 09:00 Bisoprolol Fumarate (Zebeta) 10 mg DAILY PO Last administered on 08/27/17 08: 31; Admin Dose 10 MG; Start 08/25/17 at 09:00 Ferrous Sulfate (Ferrous Sulfate (Ec)) 325 mg TID PO Last administered on 08/27 08:31; Admin Dose 325 MG; Start 08/25/17 at 09:00 Loratadine (Claritin) 10 mg DAILY PO Last administered on 08/27/17 08:31; Admin Dose 10 MG; Start 08/25/17 at 09:00 Losartan Potassium (Cozaar) 50 mg DAILY PO Last administered on 08/27/17 08: 32; Admin Dose 50 MG; Start 08/25/17 at 09:00 Sulfasalazine (Azulfidine) 500 mg BID PO Last administered on 08/27/17 08:32 ; Admin Dose 500 MG; Start 08/25/17 at 09:00 Diagnostic Test (Pha) (Accu-Chek) 1 ea 02 XX ; Start 08/26/17 at 02:00 Insulin Glargine 11 unit 11 unit DAILY@10 SC Last administered on 08/26/17 10 :46; Admin Dose 11 UNIT; Start 08/25/17 at 10:00 Cefepime HCl (Maxipime 1gm/50 ml (Pmx)) 50 ml @ 100 mls/hr Q24H IVPB Last administered on 08/26/17 10:00; Admin Dose 100 MLS/HR; Start 08/25/17 at 10: 00 Miscellaneous Information 1 ea NOTE XX ; Start 08/25/17 at 14:00 Glucose (Glutose) 15 gm Q15M PRN PO DECREASED GLUCOSE; Start 08/25/17 at 14:00 Glucose (Glutose) 22.5 gm Q15M PRN PO DECREASED GLUCOSE; Start 08/25/17 at 14: 00 Dextrose (D50w Syringe) 25 ml Q15M PRN IV DECREASED GLUCOSE; Start 08/25/17 at 14:00 Dextrose (D50w Syringe) 50 ml Q15M PRN IV DECREASED GLUCOSE; Start 08/25/17 at 14:00 Glucagon (Glucagen) 1 mg Q15M PRN IM DECREASED GLUCOSE; Start 08/25/17 at 14: 00 Glucose (Glutose) 15 gm Q15M PRN BUCCAL DECREASED GLUCOSE; Start 08/25/17 at 14:00 Acetaminophen 650 mg 650 mg Q4H PRN PO PAIN AND OR ELEVATED TEMP Last administered on 08/26/17 17:06; Admin Dose 650 MG; Start 08/25/17 at 20:30 Vancomycin HCl (Vancocin) 250 ml @ 125 mls/hr Q72H IVPB Last administered on 08/26/17 11:30; Admin Dose 125 MLS/HR; Start 08/26/17 at 10:00 SARY DUQUE MD Aug 27, 2017 09:21
[2017-08-27] MEDS: CEFEPIME 1GM/50 ML (PMX) 50 ML IVPB SCH (09:39)
[2017-08-27] MEDS: INSULIN GLARGINE [LANtus] 3 ML PEN SC SCH (10:14)
--- NOTE | 2017-08-27 11:25 | CONS ---
DATE OF ADMISSION: 08/24/2017 DATE OF CONSULTATION: 08/26/2017 TYPE OF CONSULTATION: Infectious Disease. REASON FOR CONSULTATION: Antibiotic management. HISTORY OF PRESENT ILLNESS: Mae Amor is a 61-year-old female who comes in with sepsis secondary to left lower extremity cellulitis. Her past problems include: 1. Hypertension. 2. Insulin-dependent diabetes mellitus. 3. Chronic renal disease. Acutely, the patient was brought to the emergency room for left lower leg swelling and redness and w as diagnosed as cellulitis. She was taking antibiotics without significant improvement. She has walsh d fevers and generalized weakness. Her temperature in the emergency room was 103. White count on ad mission was 0.7 and she was severely leukopenic, H and H of 5.7 and 17.1, platelet count of 57,000, so she is pancytopenic. Her white count today is 0.5 with no neutrophils. Her BUN and creatinine a re 44/3.76. Total protein is 5.9, albumin is 2.2, is 3.7. Chest x-ray shows mild cardiomegaly , vascular congestion, bibasilar atelectasis. Abdominal ultrasound normal appearance of the liver, small left pleural effusion. Blood cultures are negative. Urine cultures are negative. Patient wa s begun on vancomycin and cefepime. HOSPITAL COURSE: The patient was seen by Dr. Kenan Farfan, neurologic oncology evaluation. He fe lt that the neutropenia is likely due to methotrexate. There is substantial azotemia also. It was unclear as to why the methotrexate was ordered. Patient was started on Neupogen and considere d Procrit as well. We will consider evaluation with a bone marrow as well. PAST MEDICAL HISTORY: Operations as outlined. FAMILY HISTORY: Noncontributory. SOCIAL HISTORY: She does not smoke, drink or abuse drugs. ALLERGIES: NONE TO PENICILLIN, SULFA OR FOODS. MEDICATIONS: Per chart. REVIEW OF SYSTEMS: As per HPI. PHYSICAL EXAMINATION: GENERAL: The patient is a well-developed, well-nourished, chronically ill-appearing female who is a wake, responsive, in no acute distress. VITAL SIGNS: Stable. Her T-max on admission was 103. She is afebrile currently. SKIN: Without generalized rash. HEENT: Within normal limits. NECK: Supple. LYMPH NODES: None palpable. CHEST: Decreased breath sounds at the bases. HEART: Without murmur or gallop. ABDOMEN: Soft, nontender, without organosplenomegaly or masses. EXTREMITIES: She has left lower extremity cellulitis. RECTAL AND GENITAL: Deferred. NEUROLOGIC: No focal neurological abnormality. IMPRESSION AND PLAN: 1. Continue therapy for cellulitis with vancomycin and cefepime. 2. Methotrexate was started when she was in [facility] a year ago for leg pain. This has been held . I will dictate my findings to the hospitalist and to Dr. Farfan. Dictated By: MARCIA HUDSON MD, JD/BROOKE Conf#: [id number] DID#: [id number]
[2017-08-27] MEDS: FLUCONAZOLE 200 MG/NS (PMX) 100 ML IVPB SCH (13:09)
[2017-08-27] MEDS: NYSTATIN SUSP 5 ML CUP PO SCH ×3 (13:11→21:07)
[2017-08-27 13:15] VITALS: BP 139/85; RESP 18
[2017-08-27] MEDS ORDERED: SODIUM BICARBONATE (IV ADD) 50 MEQ in SOD CHLORIDE 0.45% 1,000 ML IV SCH (14:00)
--- NOTE | 2017-08-27 14:02 | PN ---
Date/Time of Note Date/Time of Note DATE: 08/27/17 TIME: 14:00 Assessment/Plan VTE Prophylaxis VTE Prophylaxis Intervention: heparin Lines/Catheters IV Catheter Type (from Nrs): Saline Lock Assessment/Plan Chief Complaint/Hosp Course Patient is a 61-year-old female with a past medical history of hypertension, diabetes, CKD who presented for left lower extremity cellulitis. Assessment and plan Pancytopenia Left lower extremity cellulitis Sepsis Anemia Neutropenia CKD, acute kidney injury versus CKD Abnormal AST and ALT Electrolyte abnormality -Continue antibiotics per ID -Hematology has been consulted, recommendations appreciated, status post platelets and blood transfusion -Nephrology has been consulted for acute kidney injury versus CKD -AST and ALT have down trended -Still unknown why patient was on methotrexate -Continue home meds -Monitor vitals closely. Patient afebrile over the past 24 hours -Pending arterial scan of the lower extremity Problems: Subjective 24 Hr Interval Summary Free Text/Dictation patient states severe pain to LLE Exam/Review of Systems Vital Signs Vitals Vital Signs Date Time Temp Pulse Resp B/P Pulse Ox O2 Delivery O2 Flow Rate FiO2 08/27/17 13:15 97.9 84 18 139/85 100 08/26/17 20:00 Room Air Intake and Output 08/26/17 08/26/17 08/27/17 15:00 23:00 07:00 Intake Total 120 ml Balance 120 ml Exam Physical exam General: Patient is laying in bed, moans in pain. Mentation: Patient is alert does not appear confused Head: Normocephalic atraumatic Eyes: EOMI, pupils reactive to light Neck: Supple, nontender, midline Respiratory: Clear to auscultation bilaterally Cardiovascular: regular rate, no obvious murmurs Gastrointestinal: non-tender to palpation, bowel sounds heard. Neurological: Moves all extremities spontaneously Skin:LLE erythema to the proximal tibia, tender . no pain to R LE Results Result Diagram: 08/27/17 0520 08/27/17 0520 Results 24 hrs Laboratory Tests Test 08/26/17 15:29 08/26/17 18:23 08/26/17 21:05 08/27/17 05:20 Bedside Glucose 88 114 150 White Blood Count 0.5 #L Red Blood Count 2.70 L Hemoglobin 7.9 L Hematocrit 23.3 L Mean Corpuscular Volume 86.3 Mean Corpuscular Hemoglobin 29.3 Mean Corpuscular Hemoglobin Concent 33.9 Red Cell Distribution Width 14.7 H Platelet Count 52 #L Mean Platelet Volume 11.4 H Neutrophils % Lymphocytes % Lymphocytes % (Manual) 84 H Monocytes % Eosinophils % Eosinophils % (Manual) 16 H Basophils % Nucleated Red Blood Cells % 3 H Neutrophils # Absolute Lymphocytes (Manual) 0.4 L Lymphocytes # Monocytes # Eosinophils # Basophils # Nucleated Red Blood Cells # Platelet Estimate DECREASED Giant Platelets 3 H Polychromasia 1+ Poikilocytosis 3+ Anisocytosis 1+ Sodium Level 134 L Potassium Level 4.0 Chloride Level 113 H Carbon Dioxide Level 15 L Anion Gap 10 Blood Urea Nitrogen 44 H Creatinine 3.76 H Glucose Level 106 Calcium Level 7.8 L Total Bilirubin Direct Bilirubin Indirect Bilirubin Aspartate Amino Transf (AST/SGOT) 35 Alanine Aminotransferase (ALT/SGPT) 42 Alkaline Phosphatase 127 H Total Protein 5.9 L Albumin 2.2 L Globulin 3.70 H Albumin/Globulin Ratio 0.59 Test 08/27/17 05:27 08/27/17 08:13 08/27/17 10:02 08/27/17 11:55 Lab Scanned Report BLOOD TRANSFUSION Bedside Glucose 108 107 103 Medications Medications Current Medications Ondansetron HCl (Zofran Inj) 4 mg Q6H PRN IV NAUSEA AND/OR VOMITING; Start 10/01 at 08:00 Morphine Sulfate (morphine) 2 mg Q4H PRN IV SEVERE PAIN LEVEL 7-10 Last administered on 08/27/17 08:32; Admin Dose 2 MG; Start 08/25/17 at 08:00 Amlodipine Besylate (Norvasc) 5 mg DAILY PO Last administered on 08/27/17 08: 32; Admin Dose 5 MG; Start 08/25/17 at 09:00 Bisoprolol Fumarate (Zebeta) 10 mg DAILY PO Last administered on 08/27/17 08: 31; Admin Dose 10 MG; Start 08/25/17 at 09:00 Loratadine (Claritin) 10 mg DAILY PO Last administered on 08/27/17 08:31; Admin Dose 10 MG; Start 08/25/17 at 09:00 Losartan Potassium (Cozaar) 50 mg DAILY PO Last administered on 08/27/17 08: 32; Admin Dose 50 MG; Start 08/25/17 at 09:00 Sulfasalazine (Azulfidine) 500 mg BID PO Last administered on 08/27/17 08:32 ; Admin Dose 500 MG; Start 08/25/17 at 09:00 Diagnostic Test (Pha) (Accu-Chek) 1 ea 02 XX ; Start 08/26/17 at 02:00 Insulin Glargine 11 unit 11 unit DAILY@10 SC Last administered on 08/27/17 10 :14; Admin Dose 11 UNIT; Start 08/25/17 at 10:00 Cefepime HCl (Maxipime 1gm/50 ml (Pmx)) 50 ml @ 100 mls/hr Q24H IVPB Last administered on 08/27/17 09:39; Admin Dose 100 MLS/HR; Start 08/25/17 at 10: 00 Miscellaneous Information 1 ea NOTE XX ; Start 08/25/17 at 14:00 Glucose (Glutose) 15 gm Q15M PRN PO DECREASED GLUCOSE; Start 08/25/17 at 14:00 Glucose (Glutose) 22.5 gm Q15M PRN PO DECREASED GLUCOSE; Start 08/25/17 at 14: 00 Dextrose (D50w Syringe) 25 ml Q15M PRN IV DECREASED GLUCOSE; Start 08/25/17 at 14:00 Dextrose (D50w Syringe) 50 ml Q15M PRN IV DECREASED GLUCOSE; Start 08/25/17 at 14:00 Glucagon (Glucagen) 1 mg Q15M PRN IM DECREASED GLUCOSE; Start 08/25/17 at 14: 00 Glucose (Glutose) 15 gm Q15M PRN BUCCAL DECREASED GLUCOSE; Start 08/25/17 at 14:00 Acetaminophen 650 mg 650 mg Q4H PRN PO PAIN AND OR ELEVATED TEMP Last administered on 08/26/17 17:06; Admin Dose 650 MG; Start 08/25/17 at 20:30 Vancomycin HCl (Vancocin) 250 ml @ 125 mls/hr Q72H IVPB Last administered on 08/26/17 11:30; Admin Dose 125 MLS/HR; Start 08/26/17 at 10:00 Filgrastim (Neupogen) 480 mcg DAILY@17 SC ; Start 08/27/17 at 17:00 Nystatin 5 ml 5 ml QID PO Last administered on 08/27/17 13:11; Admin Dose 5 ML; Start 10/13/17 at 13:00 Sodium Bicarbonate/ Sodium Chloride (Na Bicarb/1/2 NS) 1,050 ml @ 70 mls/hr Q15H IV ; Start 08/27/17 at 14:00 Lidocaine 15 ml 15 ml TID PO ; Start 08/27/17 at 13:00; Stop 09/03/17 at 12:59 Fluconazole (Diflucan 200 Mg/ NS (Pmx)) 100 ml @ 100 mls/hr Q24H IVPB Last administered on 08/27/17t 13:09; Admin Dose 100 MLS/HR; Start 08/27/17 at 13: 00 GIA DUMONT Aug 27, 2017 14:02
[2017-08-27] MEDS: SOD CHLORIDE 0.45% 1,000 ML IV SCH (14:25)
[2017-08-27] MEDS: LIDOCAINE 2% VISC 15 ML CUP PO SCH ×2 (14:45→21:07)
--- NOTE | 2017-08-27 15:24 | RADRPT ---
PROCEDURE: US Lower extremity arterial. CLINICAL INDICATION: Left lower extremity erythema, pain, and decreased peripheral pulses. TECHNIQUE: Multiple sonographic images of the bilateral lower extremity arteries was obtained utili zing grayscale, color-flow, and doppler imaging. The images were reviewed on a PACS workstation. COMPARISON: None. FINDINGS: RIGHT LEG: Common femoral artery: 120.7 cm/s; triphasic waveforms Proximal superficial femoral artery: 104.1 cm/s; triphasic waveforms Mid superficial femoral artery: 132.1 cm/s; triphasic waveforms Distal superficial femoral artery: 141.6 cm/s; triphasic waveforms Popliteal artery: 93.2 cm/s; triphasic waveforms Posterior tibial artery: 71 cm/s; triphasic waveforms Dorsalis pedis artery: 60.5 cm/s; triphasic waveforms LEFT LEG: Common femoral artery: 138.9 cm/s; biphasic waveforms Proximal superficial femoral artery: 198.6 cm/s; biphasic waveforms Mid superficial femoral artery: 202.3 cm/s; monophasic waveforms Distal superficial femoral artery: 195.3 cm/s; monophasic waveforms Popliteal artery: 159 cm/s; monophasic waveforms Posterior tibial artery: 76.8 cm/s; monophasic waveforms Dorsalis pedis artery: 19.4 cm/s; monophasic waveforms Right RAYRAY: 1.21 Left RAYRAY: The patient refused. IMPRESSION: 1. Abnormal examination with diffusely dampened waveforms in the left lower extremity, which are mo nophasic at and below the mid SFA. These findings suggest inflow disease. Further evaluation with CT angiography of the abdomen and pelvis with lower extremity runoff is recommended. 2. Although there are mildly elevated flow velocities in the left SFA and popliteal artery, there i s no ultrasound evidence of luminal stenosis. RAYRAY Value Interpretation Recommendation >1.4 Calcification/Vessel Hardening Refer to a Vascular Specialist 1.0-1.4 Normal None 0.9-1.0 Acceptable None 0.8-0.9 Some Arterial Disease Treat Risk Factors 0.5-0.8 Moderate Arterial Disease Refer to a Vascular Specialist Stenosis category Peak systolic velocity (cm/s) Velocity ratio Distal artery spectral waveform <20% <150 <1.5 Triphasic, normal PSV 20% to 49% 150-200 1.5-2.0 Triphasic, normal PSV 50% to 75% 200-300 2.0-4.0 Monophasic, reduced PSV >75% >300, EDV >40 >4.0 Damped monophasic, reduced PSV Occlusion No flow Damped monophasic, reduced PSV Interpretation of arterial duplex testing of lower-extremity arteries and interventions. [facility] in Vascular Surgery. 2013-Jul;26(2-3):95-104. RPTAT: HLBP .Derek Darling MD, MD Date Time Electronically viewed and signed by .Derek Darling MD, MD on 08/27/2017 15:24 .P/
--- NOTE | 2017-08-27 16:36 | QN ---
Documentation Comment [id number] renal A/P BK ATN SEPSIS PANCYTOPENIA DM DIAB NEPH PVD PLAN PER ORDER JENNA PATTEN MD Aug 27, 2017 16:36
--- NOTE | 2017-08-27 16:36 | QN ---
Documentation Comment [id number] renal A/P BK ATN SEPSIS PANCYTOPENIA DM DIAB NEPH PVD PLAN PER ORDER JENNA PATTEN MD Aug 27, 2017 16:36
--- NOTE | 2017-08-27 16:36 | QN ---
Documentation Comment [id number] renal A/P BK ATN SEPSIS PANCYTOPENIA DM DIAB NEPH PVD PLAN PER ORDER JENNA PATTEN MD Aug 27, 2017 16:36
[2017-08-27] MEDS: FILGRASTIM 480 MCG INJ SC SCH (17:40)
[2017-08-27] MEDS: DEXTROSE 50% 50 ML SYRINGE IV PRN (18:20)
[2017-08-27 20:29] VITALS: BP 140/70; RESP 18
[2017-08-28] MEDS: ACCU-CHEK XX SCH (01:37)
[2017-08-28 02:00] VITALS: BP 137/72; RESP 18
[2017-08-28] MEDS: SOD CHLORIDE 0.45% 1,000 ML IV SCH (03:30)
[2017-08-28 07:31] VITALS: BP 151/63; RESP 18
[2017-08-28] MEDS: INSULIN ASPART [NOVOLOG] 3 ML PEN SC SCH ×4 (08:15→21:15)
[2017-08-28] MEDS: SULFASALAZINE 500 MG TAB PO SCH ×2 (08:40→21:02)
[2017-08-28] MEDS: LORATADINE 10 MG TAB PO SCH (08:40)
[2017-08-28] MEDS: AMLODIPINE 5 MG TAB PO SCH (08:41)
[2017-08-28] MEDS: LOSARTAN 50 MG TAB PO SCH (08:41)
[2017-08-28] MEDS: LIDOCAINE 2% VISC 15 ML CUP PO SCH ×3 (08:42→21:01)
[2017-08-28] MEDS: NYSTATIN SUSP 5 ML CUP PO SCH ×4 (08:42→21:01)
[2017-08-28] MEDS: BISOPROLOL 5 MG TAB PO SCH (08:42)
[2017-08-28] MEDS: CEFEPIME 1GM/50 ML (PMX) 50 ML IVPB SCH (09:54)
[2017-08-28] MEDS: INSULIN GLARGINE [LANtus] 3 ML PEN SC SCH (09:57)
--- NOTE | 2017-08-28 12:21 | CONS ---
Date/Time of Note Date/Time of Note DATE: 08/28/17 TIME: 12:20 Assessment/Plan Assessment/Plan Chief Complaint/Hosp Course ID PROGRESS NOTE CURRENT ABX: DAY # => Vanco IV + Cefepime 24H INTERVAL SUMMARY * Resting, no fevers, VSS, NAD * LABS: 08/28/17 0520 08/28/17 0520 Physical Exam Physical Exam Constitutional: VSS, NAD HEENT: Unremarkable Neck: Supple, full ROM Respiratory: Equal chest rise bilaterally without dyspnea on observation Cardiovascular: nl pulses, regular rate and rhythm Gastrointestinal: Soft, NT Extremities: Warm Neurological: nl mental status, nl speech, nl strength ID ASSESSMENT 61 yo F admit with: 1. Sepsis, secondary to left lower extremity cellulitis * BCx (-); Urine Cx (-) 2. Vascular insufficiency => ?hx of vasculitis ? 3. Diabetes w/presumptive polyneuropathies: Nephro/Peripheral 4. Pancytopenia including with anemia and neutropenia=> likely due to Methotrexate was started when she was in [facility] a year ago for leg pain. 5. HTN 6. CKD 7. 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 Rheumatoid Arthritis? ABX ALLERGIES: KNDA CURRENT ABX: DAY # => Vanco IV + Cefepime ID RECOMMENDATIONS 1. Continue current ABX, if renal fx deteriorates on Vanco IV, consider change to Daptomycin . Problems: Consultation Date/Type/Reason Admit Date/Time Aug 24, 2017 at 19:05 Initial Consult Date 08/27/17 Type of Consultation: ID Referring Provider: NATHANIEL LAGOS MD Exam/Review of Systems Vital Signs Vitals Vital Signs Date Time Temp Pulse Resp B/P Pulse Ox O2 Delivery O2 Flow Rate FiO2 08/28/17 07:31 99.6 85 18 151/63 97 08/26/17 20:00 Room Air Intake and Output 08/27/17 08/27/17 08/28/17 15:00 23:00 07:00 Intake Total 400 ml 440 ml 1660 ml Output Total 200 ml Balance 200 ml 440 ml 1660 ml Results Result Diagram: 08/28/17 0520 08/28/17 0520 Results 24 hrs Laboratory Tests Test 08/27/17 13:41 08/27/17 13:49 08/27/17 17:44 08/27/17 18:08 Uric Acid 4.7 Phosphorus Level 4.8 Parathyroid Hormone (Intact) Hepatitis B Surface Antigen NEGATIVE Hepatitis B Core Total Antibody NEGATIVE Hepatitis C Antibody NEGATIVE Bedside Glucose 66 L 63 L Test 08/27/17 18:34 08/27/17 21:09 08/28/17 03:15 08/28/17 05:20 Bedside Glucose 114 126 Urine Eosinophils % 0.0 Urine Random Creatinine 61.48 Urine Protein/Creatinine Ratio 8.03 Urine Total Protein 494.0 H White Blood Count 0.6 L Red Blood Count 2.41 L Hemoglobin 7.2 L Hematocrit 20.9 L Mean Corpuscular Volume 86.7 Mean Corpuscular Hemoglobin 29.9 Mean Corpuscular Hemoglobin Concent 34.4 Red Cell Distribution Width 15.0 H Platelet Count 33 #L Mean Platelet Volume 11.9 H Neutrophils % Segmented Neutrophils % (Manual) 1 L Lymphocytes % Lymphocytes % (Manual) 82 H Monocytes % Eosinophils % Eosinophils % (Manual) 17 H Basophils % Nucleated Red Blood Cells % 0.0 Neutrophils # Absolute Lymphocytes (Manual) 0.4 L Lymphocytes # Monocytes # Eosinophils # Basophils # Nucleated Red Blood Cells # Platelet Estimate SIG DECREASED Polychromasia 3+ Hypochromasia 1+ Poikilocytosis 2+ Anisocytosis 2+ Macrocytosis 1+ Sodium Level 130 L Potassium Level 3.9 Chloride Level 114 H Carbon Dioxide Level 14 L Anion Gap 6 L Blood Urea Nitrogen 47 H Creatinine 3.77 H Glucose Level 97 Calcium Level 7.9 L Magnesium Level 1.8 Total Bilirubin Direct Bilirubin Indirect Bilirubin Aspartate Amino Transf (AST/SGOT) 51 H Alanine Aminotransferase (ALT/SGPT) 40 Alkaline Phosphatase 123 H Total Protein 6.0 L Albumin 2.2 L Globulin 3.80 H Albumin/Globulin Ratio 0.57 Test 08/28/17 07:48 08/28/17 12:07 Bedside Glucose 92 114 Medications Medications Current Medications Ondansetron HCl (Zofran Inj) 4 mg Q6H PRN IV NAUSEA AND/OR VOMITING; Start 10/01 at 08:00 Morphine Sulfate (morphine) 2 mg Q4H PRN IV SEVERE PAIN LEVEL 7-10 Last administered on 08/27/17 08:32; Admin Dose 2 MG; Start 08/25/17 at 08:00 Amlodipine Besylate (Norvasc) 5 mg DAILY PO Last administered on 08/28/17 08: 41; Admin Dose 5 MG; Start 08/25/17 at 09:00 Bisoprolol Fumarate (Zebeta) 10 mg DAILY PO Last administered on 08/28/17 08: 42; Admin Dose 10 MG; Start 08/25/17 at 09:00 Loratadine (Claritin) 10 mg DAILY PO Last administered on 08/28/17 08:40; Admin Dose 10 MG; Start 08/25/17 at 09:00 Losartan Potassium (Cozaar) 50 mg DAILY PO Last administered on 08/28/17 08: 41; Admin Dose 50 MG; Start 08/25/17 at 09:00 Sulfasalazine (Azulfidine) 500 mg BID PO Last administered on 08/28/17 08:40 ; Admin Dose 500 MG; Start 08/25/17 at 09:00 Diagnostic Test (Pha) 1 ea 1 ea 02 XX ; Start 08/26/17 at 02:00 Cefepime HCl (Maxipime 1gm/50 ml (Pmx)) 50 ml @ 100 mls/hr Q24H IVPB Last administered on 08/28/17 09:54; Admin Dose 100 MLS/HR; Start 08/25/17 at 10: 00 Miscellaneous Information 1 ea NOTE XX ; Start 08/25/17 at 14:00 Glucose (Glutose) 15 gm Q15M PRN PO DECREASED GLUCOSE; Start 08/25/17 at 14:00 Glucose (Glutose) 22.5 gm Q15M PRN PO DECREASED GLUCOSE; Start 08/25/17 at 14: 00 Dextrose (D50w Syringe) 25 ml Q15M PRN IV DECREASED GLUCOSE Last administered on 08/27/17 18:20; Admin Dose 25 ML; Start 08/25/17 at 14:00 Dextrose (D50w Syringe) 50 ml Q15M PRN IV DECREASED GLUCOSE; Start 08/25/17 at 14:00 Glucagon (Glucagen) 1 mg Q15M PRN IM DECREASED GLUCOSE; Start 08/25/17 at 14: 00 Glucose (Glutose) 15 gm Q15M PRN BUCCAL DECREASED GLUCOSE; Start 08/25/17 at 14:00 Acetaminophen 650 mg 650 mg Q4H PRN PO PAIN AND OR ELEVATED TEMP Last administered on 08/26/17 17:06; Admin Dose 650 MG; Start 08/25/17 at 20:30 Vancomycin HCl (Vancocin) 250 ml @ 125 mls/hr Q72H IVPB Last administered on 08/26/17 11:30; Admin Dose 125 MLS/HR; Start 08/26/17 at 10:00 Filgrastim (Neupogen) 480 mcg DAILY@17 SC Last administered on 08/27/17 17:40 ; Admin Dose 480 MCG; Start 08/27/17 at 17:00 Nystatin (Nystatin Susp) 5 ml QID PO Last administered on 08/28/17 08:42; Admin Dose 5 ML; Start 08/27/17 at 13:00 Lidocaine 15 ml 15 ml TID PO Last administered on 08/28/17 08:42; Admin Dose 15 ML; Start 08/27/17 at 13:00; Stop 09/03/17 at 12:59 Fluconazole 100 ml @ 100 mls/hr Q24H IVPB Last administered on 08/27/17 13: 09; Admin Dose 100 MLS/HR; Start 08/27/17 at 13:00 Sodium Chloride (1/2 NS) 1,000 ml @ 80 mls/hr [id number] IV Last administered on 08/28/17 03:30; Admin Dose 80 MLS/HR; Start 08/27/17 at 14:00 Insulin Glargine (Lantus) 9 unit DAILY@10 SC Last administered on 08/28/17 09 :57; Admin Dose 9 UNIT; Start 08/28/17 at 10:00 VERONICA GUERRIER NP Aug 28, 2017 12:21
--- NOTE | 2017-08-28 12:43 | PN ---
Date/Time of Note Date/Time of Note DATE: 08/28/17 TIME: 12:33 Assessment/Plan VTE Prophylaxis VTE Prophylaxis Intervention: heparin Lines/Catheters IV [facility]ter [facility]from [facility] Peripheral IV Assessment/Plan Chief Complaint/Hosp Course Patient is a 61-year-old female with a past medical history of hypertension, diabetes, CKD who presented for left lower extremity cellulitis. Assessment and plan Pancytopenia Left lower extremity cellulitis vascular insufficiency Sepsis Anemia Neutropenia CKD, acute kidney injury versus CKD Abnormal AST and ALT Electrolyte abnormality -Continue antibiotics per ID -Hematology has been consulted, recommendations appreciated, status post platelets and blood transfusion -Nephrology has been consulted for acute kidney injury versus CKD -AST and ALT have down trended -Still unknown why patient was on methotrexate, ?IBD, called patient's daughter yesterday, however did not know why patient is taking those medications, Daughter stated she will try to get the name of the family doctor so that I could speak with him. -Continue home meds as able. -Monitor vitals closely. Patient afebrile over the past 24 hours -arterial scan noted. Vascular surgery has been consulted, will see patient today. Problems: Subjective 24 Hr Interval Summary Free Text/Dictation patient appears more comfortable today compared to yesterday, states the left leg is still very painful. Exam/Review of Systems Vital Signs Vitals Vital Signs Date Time Temp Pulse Resp B/P Pulse Ox O2 Delivery O2 Flow Rate FiO2 08/28/17 07:31 99.6 85 18 151/63 97 08/26/17 20:00 Room Air Intake and Output 08/27/17 08/27/17 08/28/17 15:00 23:00 07:00 Intake Total 400 ml 440 ml 1660 ml Output Total 200 ml Balance 200 ml 440 ml 1660 ml Exam Physical exam General: Patient is laying in bed, sleeping, but easily aroused. Mentation: Patient is alert, able to converse and follow command, does not speak icelandic Head: Normocephalic atraumatic Eyes: EOMI, pupils reactive to light Neck: Supple, nontender, midline Respiratory: Clear to auscultation bilaterally Cardiovascular: regular rate, no obvious murmurs Gastrointestinal: non-tender to palpation, bowel sounds heard. Neurological: Moves all extremities spontaneously, but minimal 2/2 to pain. Skin:LLE erythema to the proximal tibia, tender . no pain to R LE. Results Result Diagram: 08/28/17 0520 08/28/17 0520 Results 24 hrs Laboratory Tests Test 08/27/17 13:41 08/27/17 13:49 08/27/17 17:44 08/27/17 18:08 Uric Acid 4.7 Phosphorus Level 4.8 Parathyroid Hormone (Intact) Hepatitis B Surface Antigen NEGATIVE Hepatitis B Core Total Antibody NEGATIVE Hepatitis C Antibody NEGATIVE Bedside Glucose 66 L 63 L Test 08/27/17 18:34 08/27/17 21:09 08/28/17 03:15 08/28/17 05:20 Bedside Glucose 114 126 Urine Eosinophils % 0.0 Urine Random Creatinine 61.48 Urine Protein/Creatinine Ratio 8.03 Urine Total Protein 494.0 H White Blood Count 0.6 L Red Blood Count 2.41 L Hemoglobin 7.2 L Hematocrit 20.9 L Mean Corpuscular Volume 86.7 Mean Corpuscular Hemoglobin 29.9 Mean Corpuscular Hemoglobin Concent 34.4 Red Cell Distribution Width 15.0 H Platelet Count 33 #L Mean Platelet Volume 11.9 H Neutrophils % Segmented Neutrophils % (Manual) 1 L Lymphocytes % Lymphocytes % (Manual) 82 H Monocytes % Eosinophils % Eosinophils % (Manual) 17 H Basophils % Nucleated Red Blood Cells % 0.0 Neutrophils # Absolute Lymphocytes (Manual) 0.4 L Lymphocytes # Monocytes # Eosinophils # Basophils # Nucleated Red Blood Cells # Platelet Estimate SIG DECREASED Polychromasia 3+ Hypochromasia 1+ Poikilocytosis 2+ Anisocytosis 2+ Macrocytosis 1+ Sodium Level 130 L Potassium Level 3.9 Chloride Level 114 H Carbon Dioxide Level 14 L Anion Gap 6 L Blood Urea Nitrogen 47 H Creatinine 3.77 H Glucose Level 97 Calcium Level 7.9 L Magnesium Level 1.8 Total Bilirubin Direct Bilirubin Indirect Bilirubin Aspartate Amino Transf (AST/SGOT) 51 H Alanine Aminotransferase (ALT/SGPT) 40 Alkaline Phosphatase 123 H Total Protein 6.0 L Albumin 2.2 L Globulin 3.80 H Albumin/Globulin Ratio 0.57 Test 08/28/17 07:48 08/28/17 12:07 Bedside Glucose 92 114 Medications Medications Current Medications Ondansetron HCl (Zofran Inj) 4 mg Q6H PRN IV NAUSEA AND/OR VOMITING; Start 10/01 at 08:00 Morphine Sulfate (morphine) 2 mg Q4H PRN IV SEVERE PAIN LEVEL 7-10 Last administered on 08/27/17 08:32; Admin Dose 2 MG; Start 08/25/17 at 08:00 Amlodipine Besylate (Norvasc) 5 mg DAILY PO Last administered on 08/28/17 08: 41; Admin Dose 5 MG; Start 08/25/17 at 09:00 Bisoprolol Fumarate (Zebeta) 10 mg DAILY PO Last administered on 08/28/17 08: 42; Admin Dose 10 MG; Start 08/25/17 at 09:00 Loratadine (Claritin) 10 mg DAILY PO Last administered on 08/28/17 08:40; Admin Dose 10 MG; Start 08/25/17 at 09:00 Losartan Potassium (Cozaar) 50 mg DAILY PO Last administered on 08/28/17 08: 41; Admin Dose 50 MG; Start 08/25/17 at 09:00 Sulfasalazine (Azulfidine) 500 mg BID PO Last administered on 08/28/17 08:40 ; Admin Dose 500 MG; Start 08/25/17 at 09:00 Diagnostic Test (Pha) 1 ea 1 ea 02 XX ; Start 08/26/17 at 02:00 Cefepime HCl (Maxipime 1gm/50 ml (Pmx)) 50 ml @ 100 mls/hr Q24H IVPB Last administered on 08/28/17 09:54; Admin Dose 100 MLS/HR; Start 08/25/17 at 10: 00 Miscellaneous Information 1 ea NOTE XX ; Start 08/25/17 at 14:00 Glucose (Glutose) 15 gm Q15M PRN PO DECREASED GLUCOSE; Start 08/25/17 at 14:00 Glucose (Glutose) 22.5 gm Q15M PRN PO DECREASED GLUCOSE; Start 08/25/17 at 14: 00 Dextrose (D50w Syringe) 25 ml Q15M PRN IV DECREASED GLUCOSE Last administered on 08/27/17 18:20; Admin Dose 25 ML; Start 08/25/17 at 14:00 Dextrose (D50w Syringe) 50 ml Q15M PRN IV DECREASED GLUCOSE; Start 08/25/17 at 14:00 Glucagon (Glucagen) 1 mg Q15M PRN IM DECREASED GLUCOSE; Start 08/25/17 at 14: 00 Glucose (Glutose) 15 gm Q15M PRN BUCCAL DECREASED GLUCOSE; Start 08/25/17 at 14:00 Acetaminophen 650 mg 650 mg Q4H PRN PO PAIN AND OR ELEVATED TEMP Last administered on 08/26/17 17:06; Admin Dose 650 MG; Start 08/25/17 at 20:30 Vancomycin HCl (Vancocin) 250 ml @ 125 mls/hr Q72H IVPB Last administered on 08/26/17 11:30; Admin Dose 125 MLS/HR; Start 08/26/17 at 10:00 Filgrastim (Neupogen) 480 mcg DAILY@17 SC Last administered on 08/27/17 17:40 ; Admin Dose 480 MCG; Start 08/27/17 at 17:00 Nystatin (Nystatin Susp) 5 ml QID PO Last administered on 08/28/17 08:42; Admin Dose 5 ML; Start 08/27/17 at 13:00 Lidocaine 15 ml 15 ml TID PO Last administered on 08/28/17 08:42; Admin Dose 15 ML; Start 08/27/17 at 13:00; Stop 09/03/17 at 12:59 Fluconazole 100 ml @ 100 mls/hr Q24H IVPB Last administered on 08/27/17 13: 09; Admin Dose 100 MLS/HR; Start 08/27/17 at 13:00 Sodium Chloride (1/2 NS) 1,000 ml @ 80 mls/hr [id number] IV Last administered on 08/28/17 03:30; Admin Dose 80 MLS/HR; Start 08/27/17 at 14:00 Insulin Glargine (Lantus) 9 unit DAILY@10 SC Last administered on 08/28/17 09 :57; Admin Dose 9 UNIT; Start 08/28/17 at 10:00 GIA DUMONT Aug 28, 2017 12:42
[2017-08-28] MEDS: FLUCONAZOLE 200 MG/NS (PMX) 100 ML IVPB SCH (12:51)
[2017-08-28] MEDS: DEXTROSE 5%-0.45% NACL 1,000 ML IV SCH (12:52)
--- NOTE | 2017-08-28 14:46 | CONS ---
Date/Time of Note Date/Time of Note DATE: 08/28/17 TIME: 14:43 Assessment/Plan Assessment/Plan Chief Complaint/Hosp Course A/P BK ATN SEPSIS/CELLULITES PANCYTOPENIA PVD DIABETIC NEPHROPATHY DM DIAB NEPH METABOLIC ACIDOSIS PLAN BICITRA NAHCO3 IV FLUID Problems: Consultation Date/Type/Reason Admit Date/Time Aug 24, 2017 at 19:05 Initial Consult Date 08/27/17 Type of Consultation: renal Referring Provider: NATHANIEL LAGOS MD 24 HR Interval Summary Constitutional: other (leg pain+) Exam/Review of Systems Vital Signs Vitals Vital Signs Date Time Temp Pulse Resp B/P Pulse Ox O2 Delivery O2 Flow Rate FiO2 08/28/17 07:31 99.6 85 18 151/63 97 08/26/17 20:00 Room Air Intake and Output 08/27/17 08/27/17 08/28/17 15:00 23:00 07:00 Intake Total 400 ml 440 ml 1660 ml Output Total 200 ml Balance 200 ml 440 ml 1660 ml Exam Respiratory: clear to auscultation Cardiovascular: regular rate and rhythm Gastrointestinal: bowel sounds (+), soft Extremities: edema (+++ left) Results Result Diagram: 08/28/17 0520 08/28/17 0520 Results 24 hrs Laboratory Tests Test 08/27/17 17:44 08/27/17 18:08 08/27/17 18:34 08/27/17 21:09 Bedside Glucose 66 L 63 L 114 126 Test 08/28/17 03:15 08/28/17 05:20 08/28/17 07:48 08/28/17 12:07 Urine Eosinophils % 0.0 Urine Random Creatinine 61.48 Urine Protein/Creatinine Ratio 8.03 Urine Total Protein 494.0 H White Blood Count 0.6 L Red Blood Count 2.41 L Hemoglobin 7.2 L Hematocrit 20.9 L Mean Corpuscular Volume 86.7 Mean Corpuscular Hemoglobin 29.9 Mean Corpuscular Hemoglobin Concent 34.4 Red Cell Distribution Width 15.0 H Platelet Count 33 #L Mean Platelet Volume 11.9 H Neutrophils % Segmented Neutrophils % (Manual) 1 L Lymphocytes % Lymphocytes % (Manual) 82 H Monocytes % Eosinophils % Eosinophils % (Manual) 17 H Basophils % Nucleated Red Blood Cells % 0.0 Neutrophils # Absolute Lymphocytes (Manual) 0.4 L Lymphocytes # Monocytes # Eosinophils # Basophils # Nucleated Red Blood Cells # Platelet Estimate SIG DECREASED Polychromasia 3+ Hypochromasia 1+ Poikilocytosis 2+ Anisocytosis 2+ Macrocytosis 1+ Sodium Level 130 L Potassium Level 3.9 Chloride Level 114 H Carbon Dioxide Level 14 L Anion Gap 6 L Blood Urea Nitrogen 47 H Creatinine 3.77 H Glucose Level 97 Calcium Level 7.9 L Magnesium Level 1.8 Total Bilirubin Direct Bilirubin Indirect Bilirubin Aspartate Amino Transf (AST/SGOT) 51 H Alanine Aminotransferase (ALT/SGPT) 40 Alkaline Phosphatase 123 H Total Protein 6.0 L Albumin 2.2 L Globulin 3.80 H Albumin/Globulin Ratio 0.57 Bedside Glucose 92 114 Medications Medications Current Medications Ondansetron HCl (Zofran Inj) 4 mg Q6H PRN IV NAUSEA AND/OR VOMITING; Start 10/01 at 08:00 Morphine Sulfate (morphine) 2 mg Q4H PRN IV SEVERE PAIN LEVEL 7-10 Last administered on 08/27/17 08:32; Admin Dose 2 MG; Start 08/25/17 at 08:00 Amlodipine Besylate (Norvasc) 5 mg DAILY PO Last administered on 08/28/17 08: 41; Admin Dose 5 MG; Start 08/25/17 at 09:00 Bisoprolol Fumarate (Zebeta) 10 mg DAILY PO Last administered on 08/28/17 08: 42; Admin Dose 10 MG; Start 08/25/17 at 09:00 Loratadine (Claritin) 10 mg DAILY PO Last administered on 08/28/17 08:40; Admin Dose 10 MG; Start 08/25/17 at 09:00 Losartan Potassium (Cozaar) 50 mg DAILY PO Last administered on 08/28/17 08: 41; Admin Dose 50 MG; Start 08/25/17 at 09:00 Sulfasalazine (Azulfidine) 500 mg BID PO Last administered on 08/28/17 08:40 ; Admin Dose 500 MG; Start 08/25/17 at 09:00 Diagnostic Test (Pha) 1 ea 1 ea 02 XX ; Start 08/26/17 at 02:00 Cefepime HCl (Maxipime 1gm/50 ml (Pmx)) 50 ml @ 100 mls/hr Q24H IVPB Last administered on 08/28/17 09:54; Admin Dose 100 MLS/HR; Start 08/25/17 at 10: 00 Miscellaneous Information 1 ea NOTE XX ; Start 08/25/17 at 14:00 Glucose (Glutose) 15 gm Q15M PRN PO DECREASED GLUCOSE; Start 08/25/17 at 14:00 Glucose (Glutose) 22.5 gm Q15M PRN PO DECREASED GLUCOSE; Start 08/25/17 at 14: 00 Dextrose (D50w Syringe) 25 ml Q15M PRN IV DECREASED GLUCOSE Last administered on 08/27/17 18:20; Admin Dose 25 ML; Start 08/25/17 at 14:00 Dextrose (D50w Syringe) 50 ml Q15M PRN IV DECREASED GLUCOSE; Start 08/25/17 at 14:00 Glucagon (Glucagen) 1 mg Q15M PRN IM DECREASED GLUCOSE; Start 08/25/17 at 14: 00 Glucose (Glutose) 15 gm Q15M PRN BUCCAL DECREASED GLUCOSE; Start 08/25/17 at 14:00 Acetaminophen 650 mg 650 mg Q4H PRN PO PAIN AND OR ELEVATED TEMP Last administered on 08/26/17 17:06; Admin Dose 650 MG; Start 08/25/17 at 20:30 Vancomycin HCl (Vancocin) 250 ml @ 125 mls/hr Q72H IVPB Last administered on 08/26/17 11:30; Admin Dose 125 MLS/HR; Start 08/26/17 at 10:00 Filgrastim (Neupogen) 480 mcg DAILY@17 SC Last administered on 08/27/17 17:40 ; Admin Dose 480 MCG; Start 08/27/17 at 17:00 Nystatin (Nystatin Susp) 5 ml QID PO Last administered on 08/28/17 12:52; Admin Dose 5 ML; Start 08/27/17 at 13:00 Lidocaine 15 ml 15 ml TID PO Last administered on 08/28/17 12:51; Admin Dose 15 ML; Start 08/27/17 at 13:00; Stop 09/03/17 at 12:59 Fluconazole (Diflucan 200 Mg/ NS (Pmx)) 100 ml @ 100 mls/hr Q24H IVPB Last administered on 08/28/17 12:51; Admin Dose 100 MLS/HR; Start 08/27/17 at 13: 00 Insulin Glargine 9 unit 9 unit DAILY@10 SC Last administered on 08/28/17 09: 57; Admin Dose 9 UNIT; Start 08/28/17 at 10:00 Dextrose/Sodium Chloride (D5-1/2ns) 1,000 ml @ 100 mls/hr Q10H IV Last administered on 08/28/17 12:52; Admin Dose 100 MLS/HR; Start 08/28/17 at 13: 00 Citric Acid/ Sodium Citrate (Bicitra) 30 ml BID PO ; Start 08/28/17 at 15:00 JENNA PATTEN MD Aug 28, 2017 14:46
[2017-08-28] MEDS: CITRIC ACID/NA CITRATE 30 ML CUP PO SCH (16:08)
--- NOTE | 2017-08-28 17:24 | CONS ---
Date/Time of Note Date/Time of Note DATE: 08/28/17 TIME: 17:15 Assessment/Plan Assessment/Plan Additional Assessment/Plan 61 year old female who is taking PO methotrexate DAILY for two years. In the past, she was taking 2 to 4 tablets daily depending on how much pain she is having. Recently, it was prescribed at 2 pills daily, assuming its 5 mg daily. She has similar more mild mucositis about 3 months ago, which resolved with medication. Now admitted with: 1. Pancytopenia, severe 2. Neutropenia 3. Neutropenic infection with cellulitis. 3. Severe mucositis. The above issues are well known to be caused by MTX, so thats the likely dx. Plan: Draw MTX level Start Leucovorin IV Change diet to soft with ensure TID Support with meds and antibiotics. Monitor or fever. Consultation Date/Type/Reason Admit Date/Time Aug 24, 2017 at 19:05 Initial Consult Date 08/27/17 Type of Consultation: Oncology Reason for Consultation Pancytopenia Referring Provider: NATHANIEL LAGOS MD 24 HR Interval Summary Free Text/Dictation She has severe mucositis and has a very hard time eating. No fever or chills. No diarrhea. Constitutional: poor po, requiring IVF, No chills, No diaphoresis, No disoriented, No febrile, No improved, No no complaints, No other, No requiring O2 Exam/Review of Systems Vital Signs Vitals Vital Signs Date Time Temp Pulse Resp B/P Pulse Ox O2 Delivery O2 Flow Rate FiO2 08/28/17 07:31 99.6 85 18 151/63 97 08/26/17 20:00 Room Air Intake and Output 08/27/17 08/27/17 08/28/17 15:00 23:00 07:00 Intake Total 400 ml 440 ml 1660 ml Output Total 200 ml Balance 200 ml 440 ml 1660 ml Exam Moderate distress due to mouth pain. HEENT - Severe mucositis throughout. Neck - anterior nodes and glands very tender. Chest - clear bilaterally Heart - regular. Abd - soft, and there is no HSM. EXT - Left lower leg swelling and erythema c/w cellulitis. Results Result Diagram: 08/28/17 0520 08/28/17 0520 Results 24 hrs Laboratory Tests Test 08/27/17 17:44 08/27/17 18:08 08/27/17 18:34 08/27/17 21:09 Bedside Glucose 66 L 63 L 114 126 Test 08/28/17 03:15 08/28/17 05:20 08/28/17 07:48 08/28/17 12:07 Urine Eosinophils % 0.0 Urine Random Creatinine 61.48 Urine Protein/Creatinine Ratio 8.03 Urine Total Protein 494.0 H White Blood Count 0.6 L Red Blood Count 2.41 L Hemoglobin 7.2 L Hematocrit 20.9 L Mean Corpuscular Volume 86.7 Mean Corpuscular Hemoglobin 29.9 Mean Corpuscular Hemoglobin Concent 34.4 Red Cell Distribution Width 15.0 H Platelet Count 33 #L Mean Platelet Volume 11.9 H Neutrophils % Segmented Neutrophils % (Manual) 1 L Lymphocytes % Lymphocytes % (Manual) 82 H Monocytes % Eosinophils % Eosinophils % (Manual) 17 H Basophils % Nucleated Red Blood Cells % 0.0 Neutrophils # Absolute Lymphocytes (Manual) 0.4 L Lymphocytes # Monocytes # Eosinophils # Basophils # Nucleated Red Blood Cells # Platelet Estimate SIG DECREASED Polychromasia 3+ Hypochromasia 1+ Poikilocytosis 2+ Anisocytosis 2+ Macrocytosis 1+ Sodium Level 130 L Potassium Level 3.9 Chloride Level 114 H Carbon Dioxide Level 14 L Anion Gap 6 L Blood Urea Nitrogen 47 H Creatinine 3.77 H Glucose Level 97 Calcium Level 7.9 L Magnesium Level 1.8 Total Bilirubin Direct Bilirubin Indirect Bilirubin Aspartate Amino Transf (AST/SGOT) 51 H Alanine Aminotransferase (ALT/SGPT) 40 Alkaline Phosphatase 123 H Total Protein 6.0 L Albumin 2.2 L Globulin 3.80 H Albumin/Globulin Ratio 0.57 Bedside Glucose 92 114 Test 08/28/17 15:31 Lactic Acid Level 0.8 Creatine Kinase 33 Creatine Kinase Index 2.7 Creatinine Kinase MB (Mass) 0.89 Troponin I 0.029 Medications Medications Current Medications Ondansetron HCl (Zofran Inj) 4 mg Q6H PRN IV NAUSEA AND/OR VOMITING; Start 10/01 at 08:00 Morphine Sulfate (morphine) 2 mg Q4H PRN IV SEVERE PAIN LEVEL 7-10 Last administered on 08/27/17 08:32; Admin Dose 2 MG; Start 08/25/17 at 08:00 Amlodipine Besylate (Norvasc) 5 mg DAILY PO Last administered on 08/28/17 08: 41; Admin Dose 5 MG; Start 08/25/17 at 09:00 Bisoprolol Fumarate (Zebeta) 10 mg DAILY PO Last administered on 08/28/17 08: 42; Admin Dose 10 MG; Start 08/25/17 at 09:00 Loratadine (Claritin) 10 mg DAILY PO Last administered on 08/28/17 08:40; Admin Dose 10 MG; Start 08/25/17 at 09:00 Losartan Potassium (Cozaar) 50 mg DAILY PO Last administered on 08/28/17 08: 41; Admin Dose 50 MG; Start 08/25/17 at 09:00 Sulfasalazine (Azulfidine) 500 mg BID PO Last administered on 08/28/17 08:40 ; Admin Dose 500 MG; Start 08/25/17 at 09:00 Diagnostic Test (Pha) 1 ea 1 ea 02 XX ; Start 08/26/17 at 02:00 Cefepime HCl (Maxipime 1gm/50 ml (Pmx)) 50 ml @ 100 mls/hr Q24H IVPB Last administered on 08/28/17 09:54; Admin Dose 100 MLS/HR; Start 08/25/17 at 10: 00 Miscellaneous Information 1 ea NOTE XX ; Start 08/25/17 at 14:00 Glucose (Glutose) 15 gm Q15M PRN PO DECREASED GLUCOSE; Start 08/25/17 at 14:00 Glucose (Glutose) 22.5 gm Q15M PRN PO DECREASED GLUCOSE; Start 08/25/17 at 14: 00 Dextrose (D50w Syringe) 25 ml Q15M PRN IV DECREASED GLUCOSE Last administered on 08/27/17 18:20; Admin Dose 25 ML; Start 08/25/17 at 14:00 Dextrose (D50w Syringe) 50 ml Q15M PRN IV DECREASED GLUCOSE; Start 08/25/17 at 14:00 Glucagon (Glucagen) 1 mg Q15M PRN IM DECREASED GLUCOSE; Start 08/25/17 at 14: 00 Glucose (Glutose) 15 gm Q15M PRN BUCCAL DECREASED GLUCOSE; Start 08/25/17 at 14:00 Acetaminophen 650 mg 650 mg Q4H PRN PO PAIN AND OR ELEVATED TEMP Last administered on 08/26/17 17:06; Admin Dose 650 MG; Start 08/25/17 at 20:30 Vancomycin HCl (Vancocin) 250 ml @ 125 mls/hr Q72H IVPB Last administered on 08/26/17 11:30; Admin Dose 125 MLS/HR; Start 08/26/17 at 10:00 Filgrastim (Neupogen) 480 mcg DAILY@17 SC Last administered on 08/27/17 17:40 ; Admin Dose 480 MCG; Start 08/27/17 at 17:00 Nystatin (Nystatin Susp) 5 ml QID PO Last administered on 08/28/17 12:52; Admin Dose 5 ML; Start 08/27/17 at 13:00 Lidocaine 15 ml 15 ml TID PO Last administered on 08/28/17 12:51; Admin Dose 15 ML; Start 08/27/17 at 13:00; Stop 09/03/17 at 12:59 Fluconazole (Diflucan 200 Mg/ NS (Pmx)) 100 ml @ 100 mls/hr Q24H IVPB Last administered on 08/28/17 12:51; Admin Dose 100 MLS/HR; Start 08/27/17 at 13: 00 Insulin Glargine 9 unit 9 unit DAILY@10 SC Last administered on 08/28/17 09: 57; Admin Dose 9 UNIT; Start 08/28/17 at 10:00 Dextrose/Sodium Chloride (D5-1/2ns) 1,000 ml @ 100 mls/hr Q10H IV Last administered on 08/28/17 12:52; Admin Dose 100 MLS/HR; Start 08/28/17 at 13: 00 Citric Acid/ Sodium Citrate (Bicitra) 30 ml BID PO Last administered on 16:08; Admin Dose 30 ML; Start 08/28/17 at 15:00 JUSTIN ALONSO MD Aug 28, 2017 17:24
[2017-08-28] MEDS: FILGRASTIM 480 MCG INJ SC SCH (17:55)
[2017-08-28 20:00] VITALS: BP_SYST 153; BP_SYST 162; BP_DIAS 70; BP_DIAS 71; RESP 20
[2017-08-28] MEDS: DEXTROSE 5% IV SCH (21:01)
[2017-08-28] MEDS: LEUCOVORIN CALCIUM IV SCH (21:01)
[2017-08-29] MEDS: DEXTROSE 5%-0.45% NACL 1,000 ML IV SCH ×3 (00:16→18:39)
[2017-08-29] MEDS: LEUCOVORIN CALCIUM IV SCH ×4 (00:17→18:39)
[2017-08-29] MEDS: CITRIC ACID/NA CITRATE 30 ML CUP PO SCH ×3 (00:17→21:39)
[2017-08-29] MEDS: DEXTROSE 5% IV SCH ×4 (00:17→18:39)
[2017-08-29 02:00] VITALS: BP 134/60; RESP 20
[2017-08-29] MEDS: ACCU-CHEK XX SCH (02:00)
[2017-08-29 07:31] VITALS: BP 127/71; RESP 18
[2017-08-29] MEDS: ONDANSETRON 4 MG INJ IV PRN (08:36)
[2017-08-29] MEDS: BISOPROLOL 5 MG TAB PO SCH ×2 (08:38→11:04)
[2017-08-29] MEDS: SULFASALAZINE 500 MG TAB PO SCH ×3 (08:50→21:39)
[2017-08-29] MEDS: LORATADINE 10 MG TAB PO SCH ×2 (08:50→11:05)
[2017-08-29] MEDS: LOSARTAN 50 MG TAB PO SCH ×2 (08:51→11:04)
[2017-08-29] MEDS: AMLODIPINE 5 MG TAB PO SCH ×2 (08:51→11:01)
[2017-08-29] MEDS: LIDOCAINE 2% VISC 15 ML CUP PO SCH (09:00)
[2017-08-29] MEDS: NYSTATIN SUSP 5 ML CUP PO SCH (09:00)
[2017-08-29] MEDS: CEFEPIME 1GM/50 ML (PMX) 50 ML IVPB SCH (10:39)
[2017-08-29] MEDS: INSULIN ASPART [NOVOLOG] 3 ML PEN SC SCH ×4 (10:46→22:27)
[2017-08-29] MEDS: INSULIN GLARGINE [LANtus] 3 ML PEN SC SCH (10:46)
[2017-08-29] MEDS: VANCOMYCIN 1 GM in NS 250 ML IVPB SCH (11:10)
--- NOTE | 2017-08-29 12:01 | PN ---
Date/Time of Note Date/Time of Note DATE: 08/29/17 TIME: 11:57 Assessment/Plan VTE Prophylaxis VTE Prophylaxis Intervention: heparin Lines/Catheters IV Catheter Type (from Nrs): Peripheral IV Urinary Cath still in place: Yes Reason Cath still needed: terminal illness/intractable pain Assessment/Plan Chief Complaint/Hosp Course Patient is a 61-year-old female with a past medical history of hypertension, diabetes, CKD who presented for left lower extremity cellulitis. Assessment and plan Pancytopenia Left lower extremity cellulitis vascular insufficiency severe mucositis Sepsis Anemia Neutropenia CKD, acute kidney injury versus CKD Abnormal AST and ALT Electrolyte abnormality -Continue antibiotics per ID -Hematology has been consulted, recommendations appreciated, status post platelets and blood transfusion, patient also has likely mucositis 2/2 methotrexate use, lidocaine viscous has not been helping, so ordered diphen/lido /mal oral solution instead, also stated to give morphine if oral pain is causing patient to not tolerate PO intake (including pills). -Nephrology has been consulted for acute kidney injury versus CKD. Kidney function has been improving, however bicarb is still very low s/p bicarb drip and initiation of bicitra, nephro recs appreciated. -AST and ALT have down trended -Still unknown why patient was on methotrexate, ?IBD?rheumatology, called patient's daughter yesterday, however did not know why patient is taking those medications, Daughter stated she will try to get the name of the family doctor. -Continue home meds as able. -Monitor vitals closely. Patient afebrile over the past 24 hours -arterial scan noted. Vascular surgery, Dr. Farias has been consulted, will see patient. Problems: Subjective 24 Hr Interval Summary Free Text/Dictation complains of left leg pain and does not like the pascual catheter. Exam/Review of Systems Vital Signs Vitals Vital Signs Date Time Temp Pulse Resp B/P Pulse Ox O2 Delivery O2 Flow Rate FiO2 08/29/17 07:31 98.5 87 18 127/71 99 08/26/17 20:00 Room Air Intake and Output 08/28/17 08/28/17 08/29/17 15:00 23:00 07:00 Intake Total 790 ml 390 ml 1600 ml Output Total 900 ml 425 ml Balance 790 ml -510 ml 1175 ml Exam Physical exam General: Patient is laying in bed, sleeping, but easily aroused. Mentation: Patient is alert, able to converse and follow command, does not speak [place] Head: Normocephalic atraumatic Eyes: EOMI, pupils reactive to light Neck: Supple, nontender, midline Respiratory: Clear to auscultation bilaterally Cardiovascular: regular rate, no obvious murmurs Gastrointestinal: non-tender to palpation, bowel sounds heard. Neurological: Moves all extremities spontaneously, but minimal 2/2 to pain. Skin:LLE erythema to the proximal tibia, tender . no pain to R LE. Results Result Diagram: 08/29/1728 08/29/17 0528 Results 24 hrs Laboratory Tests Test 08/28/17 12:07 08/28/17 15:31 08/28/17 17:23 08/28/17 21:03 Bedside Glucose 114 150 212 Lactic Acid Level 0.8 Creatine Kinase 33 Creatine Kinase Index 2.7 Creatinine Kinase MB (Mass) 0.89 Troponin I 0.029 Test 08/29/17 02:10 08/29/17 05:28 08/29/17 07:21 08/29/17 08:20 Bedside Glucose 203 204 White Blood Count 0.4 #L Red Blood Count 2.39 L Hemoglobin 7.2 L Hematocrit 21.1 L Mean Corpuscular Volume 88.3 Mean Corpuscular Hemoglobin 30.1 Mean Corpuscular Hemoglobin Concent 34.1 Red Cell Distribution Width 14.9 H Platelet Count 20 #*L Mean Platelet Volume 10.5 H Neutrophils % Lymphocytes % Lymphocytes % (Manual) 60 H Monocytes % Monocytes % (Manual) 1 Eosinophils % Eosinophils % (Manual) 39 H Basophils % Nucleated Red Blood Cells % 0.0 Neutrophils # Absolute Lymphocytes (Manual) 0.2 L Lymphocytes # Monocytes # Absolute Monocytes (Manual) 0.0 L Eosinophils # Basophils # Nucleated Red Blood Cells # Platelet Estimate SIG DECREASED Poikilocytosis 1+ Anisocytosis 1+ Microcytosis 1+ Macrocytosis 1+ Sodium Level 137 Potassium Level 3.4 L Chloride Level 114 H Carbon Dioxide Level 14 L Anion Gap 12 Blood Urea Nitrogen 43 H Creatinine 3.50 H Glucose Level 181 Calcium Level 7.7 L Phosphorus Level 4.3 Magnesium Level 1.7 Lab Scanned Report BLOOD TRANSFUSION Test 08/29/17 10:37 Bedside Glucose 176 Medications Medications Current Medications Ondansetron HCl (Zofran Inj) 4 mg Q6H PRN IV NAUSEA AND/OR VOMITING Last administered on 08/29/17 08:36; Admin Dose 4 MG; Start 08/25/17 at 08:00 Morphine Sulfate (morphine) 2 mg Q4H PRN IV SEVERE PAIN LEVEL 7-10 Last administered on 08/27/17 08:32; Admin Dose 2 MG; Start 08/25/17 at 08:00 Amlodipine Besylate (Norvasc) 5 mg DAILY PO Last administered on 08/29/17 11: 01; Admin Dose 5 MG; Start 08/25/17 at 09:00 Bisoprolol Fumarate (Zebeta) 10 mg DAILY PO Last administered on 08/29/17 11: 04; Admin Dose 10 MG; Start 08/25/17 at 09:00 Loratadine (Claritin) 10 mg DAILY PO Last administered on 08/29/17 11:05; Admin Dose 10 MG; Start 08/25/17 at 09:00 Losartan Potassium (Cozaar) 50 mg DAILY PO Last administered on 08/29/17 11: 04; Admin Dose 50 MG; Start 08/25/17 at 09:00 Sulfasalazine (Azulfidine) 500 mg BID PO Last administered on 08/29/17 10:59 ; Admin Dose 500 MG; Start 08/25/17 at 09:00 Diagnostic Test (Pha) 1 ea 1 ea 02 XX ; Start 08/26/17 at 02:00 Cefepime HCl (Maxipime 1gm/50 ml (Pmx)) 50 ml @ 100 mls/hr Q24H IVPB Last administered on 08/29/17 10:39; Admin Dose 100 MLS/HR; Start 08/25/17 at 10: 00 Miscellaneous Information 1 ea NOTE XX ; Start 08/25/17 at 14:00 Glucose (Glutose) 15 gm Q15M PRN PO DECREASED GLUCOSE; Start 08/25/17 at 14:00 Glucose (Glutose) 22.5 gm Q15M PRN PO DECREASED GLUCOSE; Start 08/25/17 at 14: 00 Dextrose (D50w Syringe) 25 ml Q15M PRN IV DECREASED GLUCOSE Last administered on 08/27/17 18:20; Admin Dose 25 ML; Start 08/25/17 at 14:00 Dextrose (D50w Syringe) 50 ml Q15M PRN IV DECREASED GLUCOSE; Start 08/25/17 at 14:00 Glucagon (Glucagen) 1 mg Q15M PRN IM DECREASED GLUCOSE; Start 08/25/17 at 14: 00 Glucose (Glutose) 15 gm Q15M PRN BUCCAL DECREASED GLUCOSE; Start 08/25/17 at 14:00 Acetaminophen 650 mg 650 mg Q4H PRN PO PAIN AND OR ELEVATED TEMP Last administered on 08/26/17 17:06; Admin Dose 650 MG; Start 08/25/17 at 20:30 Vancomycin HCl (Vancocin) 250 ml @ 125 mls/hr Q72H IVPB Last administered on 08/29/17 11:10; Admin Dose 125 MLS/HR; Start 08/26/17 at 10:00 Filgrastim 480 mcg 480 mcg DAILY@17 SC Last administered on 08/28/17 17:55; Admin Dose 480 MCG; Start 08/27/17 at 17:00 Fluconazole (Diflucan 200 Mg/ NS (Pmx)) 100 ml @ 100 mls/hr Q24H IVPB Last administered on 08/28/17 12:51; Admin Dose 100 MLS/HR; Start 08/27/17 at 13: 00 Insulin Glargine 9 unit 9 unit DAILY@10 SC Last administered on 08/29/17 10: 46; Admin Dose 9 UNIT; Start 08/28/17 at 10:00 Dextrose/Sodium Chloride (D5-1/2ns) 1,000 ml @ 100 mls/hr Q10H IV Last administered on 08/29/17 08:55; Admin Dose 100 MLS/HR; Start 08/28/17 at 13: 00 Citric Acid/ Sodium Citrate 30 ml 30 ml BID PO Last administered on 08/29/17 00:17; Admin Dose 30 ML; Start 08/28/17 at 15:00 Leucovorin Calcium/Dextrose (Leucovorin Calcium Inj/D5W) 50 ml @ 200 mls/hr Q6 IV Last administered on 08/29/17 05:55; Admin Dose 200 MLS/HR; Start at 19:00 Miscellaneous Medication (Bax Susp) 10 ml TID PO ; Start 08/29/17 at 13:00 GIA DUMONT Aug 29, 2017 12:01
--- NOTE | 2017-08-29 13:34 | PN ---
Date/Time of Note Date/Time of Note DATE: 08/29/17 TIME: 13:27 Assessment/Plan VTE Prophylaxis VTE Prophylaxis Intervention: contraindicated (low platelets) Lines/Catheters IV [facility] (from [facility] Peripheral IV Urinary Cath still in place: Yes Reason Cath still needed: other (indicate) (cannot get up to BR) Assessment/Plan Chief Complaint/Hosp Course 61 year old female who is taking PO methotrexate DAILY for two years. In the past, she was taking 2 to 4 tablets daily depending on how much pain she is having. Recently, it was prescribed at 2 pills daily, assuming its 5 mg daily. She has similar but more mild mucositis about 3 months ago, which resolved with medication. Now admitted with: 1. Pancytopenia, severe 2. Neutropenia 3. Neutropenic infection with cellulitis. The cellulitis is really not improving, still significantly warm and red despite being afebrile. Already on Cefipime and Vanco. 3. Severe mucositis. 4. Acute renal failure. The above issues are all well known to be caused by MTX, so thats the likely dx. She is essentially the same with no real improvement. Plan: Continue supportive care. Platelets lower today, transfuse to keep above 10K or if any bleeding. MTX level pending, but likely normal given time before draw, although MTX can have decreased clearance with poor kidney function. Continue Leucovorin. Problems: Subjective 24 Hr Interval Summary Free Text/Dictation She is the same. Still has severe mucositis, has difficulty eating. Still has pain in the left lower leg. Exam/Review of Systems Vital Signs Vitals Vital Signs Date Time Temp Pulse Resp B/P Pulse Ox O2 Delivery O2 Flow Rate FiO2 08/29/17 07:31 98.5 87 18 127/71 99 08/26/17 20:00 Room Air Intake and Output 08/28/17 08/28/17 08/29/17 15:00 23:00 07:00 Intake Total 790 ml 390 ml 1600 ml Output Total 900 ml 425 ml Balance 790 ml -510 ml 1175 ml Exam NAD, trying to eat something from the meal. Mouth - severe mucositis, blistering. Also with oropharyngeal dry blood. Clear bilaterally. Abd mild tender, diffuse. Left leg - Still with significant swelling, erythema and warmth. Results Result Diagram: 08/29/17 0528 08/29/17 0528 Results 24 hrs Laboratory Tests Test 08/28/17 15:31 08/28/17 17:23 08/28/17 21:03 08/29/17 02:10 Lactic Acid Level 0.8 Creatine Kinase 33 Creatine Kinase Index 2.7 Creatinine Kinase MB (Mass) 0.89 Troponin I 0.029 Bedside Glucose 150 212 203 Test 08/29/17 05:28 08/29/17 07:21 08/29/17 08:20 08/29/17 10:37 White Blood Count 0.4 #L Red Blood Count 2.39 L Hemoglobin 7.2 L Hematocrit 21.1 L Mean Corpuscular Volume 88.3 Mean Corpuscular Hemoglobin 30.1 Mean Corpuscular Hemoglobin Concent 34.1 Red Cell Distribution Width 14.9 H Platelet Count 20 #*L Mean Platelet Volume 10.5 H Neutrophils % Lymphocytes % Lymphocytes % (Manual) 60 H Monocytes % Monocytes % (Manual) 1 Eosinophils % Eosinophils % (Manual) 39 H Basophils % Nucleated Red Blood Cells % 0.0 Neutrophils # Absolute Lymphocytes (Manual) 0.2 L Lymphocytes # Monocytes # Absolute Monocytes (Manual) 0.0 L Eosinophils # Basophils # Nucleated Red Blood Cells # Platelet Estimate SIG DECREASED Poikilocytosis 1+ Anisocytosis 1+ Microcytosis 1+ Macrocytosis 1+ Sodium Level 137 Potassium Level 3.4 L Chloride Level 114 H Carbon Dioxide Level 14 L Anion Gap 12 Blood Urea Nitrogen 43 H Creatinine 3.50 H Glucose Level 181 Calcium Level 7.7 L Phosphorus Level 4.3 Magnesium Level 1.7 Lab Scanned Report BLOOD TRANSFUSION Bedside Glucose 204 176 Test 08/29/17 12:12 Bedside Glucose 147 Medications Medications Current Medications Ondansetron HCl (Zofran Inj) 4 mg Q6H PRN IV NAUSEA AND/OR VOMITING Last administered on 08/29/17 08:36; Admin Dose 4 MG; Start 08/25/17 at 08:00 Morphine Sulfate (morphine) 2 mg Q4H PRN IV SEVERE PAIN LEVEL 7-10 Last administered on 08/27/17 08:32; Admin Dose 2 MG; Start 08/25/17 at 08:00 Amlodipine Besylate (Norvasc) 5 mg DAILY PO Last administered on 08/29/17 11: 01; Admin Dose 5 MG; Start 08/25/17 at 09:00 Bisoprolol Fumarate (Zebeta) 10 mg DAILY PO Last administered on 08/29/17 11: 04; Admin Dose 10 MG; Start 08/25/17 at 09:00 Loratadine (Claritin) 10 mg DAILY PO Last administered on 08/29/17 11:05; Admin Dose 10 MG; Start 08/25/17 at 09:00 Losartan Potassium (Cozaar) 50 mg DAILY PO Last administered on 08/29/17 11: 04; Admin Dose 50 MG; Start 08/25/17 at 09:00 Sulfasalazine (Azulfidine) 500 mg BID PO Last administered on 08/29/17 10:59 ; Admin Dose 500 MG; Start 08/25/17 at 09:00 Diagnostic Test (Pha) 1 ea 1 ea 02 XX ; Start 08/26/17 at 02:00 Cefepime HCl (Maxipime 1gm/50 ml (Pmx)) 50 ml @ 100 mls/hr Q24H IVPB Last administered on 08/29/17 10:39; Admin Dose 100 MLS/HR; Start 08/25/17 at 10: 00 Miscellaneous Information 1 ea NOTE XX ; Start 08/25/17 at 14:00 Glucose (Glutose) 15 gm Q15M PRN PO DECREASED GLUCOSE; Start 08/25/17 at 14:00 Glucose (Glutose) 22.5 gm Q15M PRN PO DECREASED GLUCOSE; Start 08/25/17 at 14: 00 Dextrose (D50w Syringe) 25 ml Q15M PRN IV DECREASED GLUCOSE Last administered on 08/27/17 18:20; Admin Dose 25 ML; Start 08/25/17 at 14:00 Dextrose (D50w Syringe) 50 ml Q15M PRN IV DECREASED GLUCOSE; Start 08/25/17 at 14:00 Glucagon (Glucagen) 1 mg Q15M PRN IM DECREASED GLUCOSE; Start 08/25/17 at 14: 00 Glucose (Glutose) 15 gm Q15M PRN BUCCAL DECREASED GLUCOSE; Start 08/25/17 at 14:00 Acetaminophen 650 mg 650 mg Q4H PRN PO PAIN AND OR ELEVATED TEMP Last administered on 08/26/17 17:06; Admin Dose 650 MG; Start 08/25/17 at 20:30 Vancomycin HCl (Vancocin) 250 ml @ 125 mls/hr Q72H IVPB Last administered on 08/29/17 11:10; Admin Dose 125 MLS/HR; Start 08/26/17 at 10:00 Filgrastim 480 mcg 480 mcg DAILY@17 SC Last administered on 08/28/17 17:55; Admin Dose 480 MCG; Start 08/27/17 at 17:00 Fluconazole (Diflucan 200 Mg/ NS (Pmx)) 100 ml @ 100 mls/hr Q24H IVPB Last administered on 08/28/17 12:51; Admin Dose 100 MLS/HR; Start 08/27/17 at 13: 00 Insulin Glargine 9 unit 9 unit DAILY@10 SC Last administered on 08/29/17 10: 46; Admin Dose 9 UNIT; Start 08/28/17 at 10:00 Dextrose/Sodium Chloride (D5-1/2ns) 1,000 ml @ 100 mls/hr Q10H IV Last administered on 08/29/17 08:55; Admin Dose 100 MLS/HR; Start 08/28/17 at 13: 00 Citric Acid/ Sodium Citrate 30 ml 30 ml BID PO Last administered on 08/29/17 00:17; Admin Dose 30 ML; Start 08/28/17 at 15:00 Leucovorin Calcium/Dextrose (Leucovorin Calcium Inj/D5W) 50 ml @ 200 mls/hr Q6 IV Last administered on 08/29/17 12:13; Admin Dose 200 MLS/HR; Start at 19:00 Miscellaneous Medication (Bax Susp) 10 ml TID PO ; Start 08/29/17 at 13:00 JUSTIN ALONSO MD Aug 29, 2017 13:34
[2017-08-29] MEDS: DIPHENHYD/MYLANTA/LIDO (PO SYG) PO SCH ×2 (13:51→21:38)
[2017-08-29] MEDS: FLUCONAZOLE 200 MG/NS (PMX) 100 ML IVPB SCH (13:51)
[2017-08-29 14:00] VITALS: BP 172/80; RESP 18
--- NOTE | 2017-08-29 14:22 | CONS ---
Date/Time of Note Date/Time of Note DATE: 08/29/17 TIME: 14:16 Assessment/Plan Assessment/Plan Chief Complaint/Hosp Course ID PROGRESS NOTE CURRENT ABX: DAY # 5=> Vanco IV + Cefepime 24H INTERVAL SUMMARY * A/A/O, responsive, and cooperative with exam, overweight, no fevers, VSS, NAD , she is eating lunch * On ABX for severe LLEXT cellulitis -> still w/edema/erythema * Acute renal failure / CKD 08/29/17 0528 08/29/17 0528 Physical Exam Physical Exam Constitutional: VSS, NAD HEENT: Unremarkable Neck: Supple, full ROM Respiratory: Equal chest rise bilaterally without dyspnea on observation Cardiovascular: nl pulses, regular rate and rhythm Gastrointestinal: Soft, NT Extremities: Warml LLEXT edema/erythema/chronic hyperpigmentation changes distal pre-tibial Neurological: nl mental status, nl speech, nl strength ID ASSESSMENT 61 yo F admit with: 1. Sepsis, secondary to left lower extremity cellulitis * BCx (-); Urine Cx (-) 2. Vascular insufficiency => ?hx of vasculitis ? 3. Diabetes w/presumptive polyneuropathies: Nephro/Peripheral 4. Pancytopenia=> likely due to Methotrexate was started when she was in [facility] a year ago for leg pain. * Including: Anemia, leukopenia, thrombocytopenia 5. HTN 6. CKD 7. 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 Rheumatoid Arthritis? ABX ALLERGIES: KNDA CURRENT ABX: DAY #5 => Vanco IV + Cefepime ID RECOMMENDATIONS 1. Continue current ABX, if renal fx deteriorates on Vanco IV, consider change to Daptomycin . Problems: Consultation Date/Type/Reason Admit Date/Time Aug 24, 2017 at 19:05 Initial Consult Date 08/27/17 Type of Consultation: ID Referring Provider: NATHANIEL LAGOS MD Exam/Review of Systems Vital Signs Vitals Vital Signs Date Time Temp Pulse Resp B/P Pulse Ox O2 Delivery O2 Flow Rate FiO2 08/29/17 07:31 98.5 87 18 127/71 99 08/26/17 20:00 Room Air Intake and Output 08/28/17 08/28/17 08/29/17 14:59 22:59 06:59 Intake Total 790 ml 390 ml 1600 ml Output Total 900 ml 425 ml Balance 790 ml -510 ml 1175 ml Results Result Diagram: 08/29/1728 08/29/17527 Results 24 hrs Laboratory Tests Test 08/28/17 15:31 08/28/17 17:23 08/28/17 21:03 08/29/17 02:10 Lactic Acid Level 0.8 Creatine Kinase 33 Creatine Kinase Index 2.7 Creatinine Kinase MB (Mass) 0.89 Troponin I 0.029 Bedside Glucose 150 212 203 Test 08/29/17 05:28 08/29/17 07:21 08/29/17 08:20 08/29/17 10:37 White Blood Count 0.4 #L Red Blood Count 2.39 L Hemoglobin 7.2 L Hematocrit 21.1 L Mean Corpuscular Volume 88.3 Mean Corpuscular Hemoglobin 30.1 Mean Corpuscular Hemoglobin Concent 34.1 Red Cell Distribution Width 14.9 H Platelet Count 20 #*L Mean Platelet Volume 10.5 H Neutrophils % Lymphocytes % Lymphocytes % (Manual) 60 H Monocytes % Monocytes % (Manual) 1 Eosinophils % Eosinophils % (Manual) 39 H Basophils % Nucleated Red Blood Cells % 0.0 Neutrophils # Absolute Lymphocytes (Manual) 0.2 L Lymphocytes # Monocytes # Absolute Monocytes (Manual) 0.0 L Eosinophils # Basophils # Nucleated Red Blood Cells # Platelet Estimate SIG DECREASED Poikilocytosis 1+ Anisocytosis 1+ Microcytosis 1+ Macrocytosis 1+ Sodium Level 137 Potassium Level 3.4 L Chloride Level 114 H Carbon Dioxide Level 14 L Anion Gap 12 Blood Urea Nitrogen 43 H Creatinine 3.50 H Glucose Level 181 Calcium Level 7.7 L Phosphorus Level 4.3 Magnesium Level 1.7 Lab Scanned Report BLOOD TRANSFUSION Bedside Glucose 204 176 Test 08/29/17 12:12 Bedside Glucose 147 Medications Medications Current Medications Ondansetron HCl (Zofran Inj) 4 mg Q6H PRN IV NAUSEA AND/OR VOMITING Last administered on 08/29/17 08:36; Admin Dose 4 MG; Start 08/25/17 at 08:00 Morphine Sulfate (morphine) 2 mg Q4H PRN IV SEVERE PAIN LEVEL 7-10 Last administered on 08/27/17 08:32; Admin Dose 2 MG; Start 08/25/17 at 08:00 Amlodipine Besylate (Norvasc) 5 mg DAILY PO Last administered on 08/29/17 11: 01; Admin Dose 5 MG; Start 08/25/17 at 09:00 Bisoprolol Fumarate (Zebeta) 10 mg DAILY PO Last administered on 08/29/17 11: 04; Admin Dose 10 MG; Start 08/25/17 at 09:00 Loratadine (Claritin) 10 mg DAILY PO Last administered on 08/29/17 11:05; Admin Dose 10 MG; Start 08/25/17 at 09:00 Losartan Potassium (Cozaar) 50 mg DAILY PO Last administered on 08/29/17 11: 04; Admin Dose 50 MG; Start 08/25/17 at 09:00 Sulfasalazine (Azulfidine) 500 mg BID PO Last administered on 08/29/17 10:59 ; Admin Dose 500 MG; Start 08/25/17 at 09:00 Diagnostic Test (Pha) 1 ea 1 ea 02 XX ; Start 08/26/17 at 02:00 Cefepime HCl (Maxipime 1gm/50 ml (Pmx)) 50 ml @ 100 mls/hr Q24H IVPB Last administered on 08/29/17 10:39; Admin Dose 100 MLS/HR; Start 08/25/17 at 10: 00 Miscellaneous Information 1 ea NOTE XX ; Start 08/25/17 at 14:00 Glucose (Glutose) 15 gm Q15M PRN PO DECREASED GLUCOSE; Start 08/25/17 at 14:00 Glucose (Glutose) 22.5 gm Q15M PRN PO DECREASED GLUCOSE; Start 08/25/17 at 14: 00 Dextrose (D50w Syringe) 25 ml Q15M PRN IV DECREASED GLUCOSE Last administered on 08/27/17 18:20; Admin Dose 25 ML; Start 08/25/17 at 14:00 Dextrose (D50w Syringe) 50 ml Q15M PRN IV DECREASED GLUCOSE; Start 08/25/17 at 14:00 Glucagon (Glucagen) 1 mg Q15M PRN IM DECREASED GLUCOSE; Start 08/25/17 at 14: 00 Glucose (Glutose) 15 gm Q15M PRN BUCCAL DECREASED GLUCOSE; Start 08/25/17 at 14:00 Acetaminophen 650 mg 650 mg Q4H PRN PO PAIN AND OR ELEVATED TEMP Last administered on 08/26/17 17:06; Admin Dose 650 MG; Start 08/25/17 at 20:30 Vancomycin HCl (Vancocin) 250 ml @ 125 mls/hr Q72H IVPB Last administered on 08/29/17 11:10; Admin Dose 125 MLS/HR; Start 08/26/17 at 10:00 Filgrastim 480 mcg 480 mcg DAILY@17 SC Last administered on 08/28/17 17:55; Admin Dose 480 MCG; Start 08/27/17 at 17:00 Fluconazole (Diflucan 200 Mg/ NS (Pmx)) 100 ml @ 100 mls/hr Q24H IVPB Last administered on 08/29/17 13:51; Admin Dose 100 MLS/HR; Start 08/27/17 at 13: 00 Insulin Glargine 9 unit 9 unit DAILY@10 SC Last administered on 08/29/17 10: 46; Admin Dose 9 UNIT; Start 08/28/17 at 10:00 Dextrose/Sodium Chloride (D5-1/2ns) 1,000 ml @ 100 mls/hr Q10H IV Last administered on 08/29/17 08:55; Admin Dose 100 MLS/HR; Start 08/28/17 at 13: 00 Citric Acid/ Sodium Citrate 30 ml 30 ml BID PO Last administered on 08/29/17 00:17; Admin Dose 30 ML; Start 08/28/17 at 15:00 Leucovorin Calcium/Dextrose (Leucovorin Calcium Inj/D5W) 50 ml @ 200 mls/hr Q6 IV Last administered on 08/29/17 12:13; Admin Dose 200 MLS/HR; Start at 19:00 Miscellaneous Medication (Bax Susp) 10 ml TID PO Last administered on 13:51; Admin Dose 10 ML; Start 08/29/17 at 13:00 VERONICA GUERRIER NP Aug 29, 2017 14:22
--- NOTE | 2017-08-29 15:22 | HP ---
DATE OF ADMISSION: 08/24/2017 VASCULAR SURGERY CONSULTATION Dear doctors: Ms. Amor is a 61-year-old female from [facility] who presented to [facility] secondary to left lower extremity discomfort, pain, redness and swelling that was identif ied to have cellulitis and was admitted for evaluation. Further, the patient had pancytopenia that seemed to be a bit unexplained and has been currently placed on methotrexate back in [facility]. Th e patient is limited with her discussion with us and is unaware of her medical status and why she walsh s been on this medication. Further, the family was not able to answer any further questions. From our reporting in discussing with our medical team, her left lower extremity has been improving from the standpoint of her cellulitis. Patient is currently being followed by infectious disease, medici ne, and hematology. She does mention that left lower extremity pain has improved. REVIEW OF SYSTEMS: A 14-point review performed and negative except what is mentioned in the HPI. PAST MEDICAL HISTORY: 1. Entails pancytopenia of unclarity as to why the patient is on methotrexate and what her conditio n that is being treated from [facility]. 2. Hypertension, diabetes, chronic kidney disease, creatinine of 3.5 at the moment, she did present with higher levels of 4.2. PAST SURGICAL HISTORY: Unclear what her surgical history may have entailed as none was reported. SOCIAL HISTORY: Denies tobacco, alcohol or illicit drug use. FAMILY HISTORY: Positive for hypertension. PHYSICAL EXAMINATION: GENERAL: She is alert and oriented x3, although there is a language barrier, despite certified damon slator. HEENT: Normocephalic, atraumatic. EOMI. Mucosa moist. NECK: Supple. No carotid bruit. PULMONARY: Clear to auscultation bilaterally. No crackles. CARDIOVASCULAR: S1, S2 present. No murmurs. ABDOMEN: Soft, nontender, nondistended. Bowel sounds positive. Truncal obesity. EXTREMITIES: Right lower extremity palpable femoral pulse, nonpalpable pedal pulse. Motor, sensory intact. Cap refill 3 seconds. Left lower extremity palpable femoral pulse, nonpalpable pedal pulse. Edema of 2 to 3+, erythema ex tending from the ankle up to the knee with some superficial skin loss, near the medial malleolar are a. Tenderness upon palpation near the ankle area. Upon her, there is a tommy on the leg where her p revious site of her cellulitis was, it looks like it is improved as the erythema has descended. ASSESSMENT AND PLAN: 1. Bilateral lower extremity atherosclerosis with left lower extremity diabetic foot infection. It seems that the patient has developed significant infection of the left lower extremity that is curr ently being treated by antibiotics. No current vascular intervention as the patient has not develop ed any gangrene or ulcers. The patient, however, does have what seems to be cellulitis and has some edema in the segment of her lower leg, which will require further evaluation by general surgery col leagues for possible I and D. We will recommend obtaining a CT scan of the left lower extremity for evaluation of her cutaneous tissue edema. 2. Discussed findings, plan and management with the patient with a certified ship superintendent and she und vito. However, the patient is unable to explain why she is on methotrexate and what condition w as being treated for her to be placed on that medication and how long she has been on it. 3. Optimize vascular status (BP meds, diet, nutrition, exercise, sugar control, antiplatelets). Thank you for allowing us to partake in the care of your patient. Please call with any questions. Dictated By: MOOK SANTIAGO/BROOKE Conf#: [id number] DID#: [id number]
--- NOTE | 2017-08-29 15:22 | HP ---
DATE OF ADMISSION: 08/24/2017 VASCULAR SURGERY CONSULTATION Dear doctors: Ms. Amor is a 61-year-old female from [facility] who presented to [facility] secondary to left lower extremity discomfort, pain, redness and swelling that was identif ied to have cellulitis and was admitted for evaluation. Further, the patient had pancytopenia that seemed to be a bit unexplained and has been currently placed on methotrexate back in [facility]. Th e patient is limited with her discussion with us and is unaware of her medical status and why she walsh s been on this medication. Further, the family was not able to answer any further questions. From our reporting in discussing with our medical team, her left lower extremity has been improving from the standpoint of her cellulitis. Patient is currently being followed by infectious disease, medici ne, and hematology. She does mention that left lower extremity pain has improved. REVIEW OF SYSTEMS: A 14-point review performed and negative except what is mentioned in the HPI. PAST MEDICAL HISTORY: 1. Entails pancytopenia of unclarity as to why the patient is on methotrexate and what her conditio n that is being treated from [facility]. 2. Hypertension, diabetes, chronic kidney disease, creatinine of 3.5 at the moment, she did present with higher levels of 4.2. PAST SURGICAL HISTORY: Unclear what her surgical history may have entailed as none was reported. SOCIAL HISTORY: Denies tobacco, alcohol or illicit drug use. FAMILY HISTORY: Positive for hypertension. PHYSICAL EXAMINATION: GENERAL: She is alert and oriented x3, although there is a language barrier, despite certified damon slator. HEENT: Normocephalic, atraumatic. EOMI. Mucosa moist. NECK: Supple. No carotid bruit. PULMONARY: Clear to auscultation bilaterally. No crackles. CARDIOVASCULAR: S1, S2 present. No murmurs. ABDOMEN: Soft, nontender, nondistended. Bowel sounds positive. Truncal obesity. EXTREMITIES: Right lower extremity palpable femoral pulse, nonpalpable pedal pulse. Motor, sensory intact. Cap refill 3 seconds. Left lower extremity palpable femoral pulse, nonpalpable pedal pulse. Edema of 2 to 3+, erythema ex tending from the ankle up to the knee with some superficial skin loss, near the medial malleolar are a. Tenderness upon palpation near the ankle area. Upon her, there is a tommy on the leg where her p revious site of her cellulitis was, it looks like it is improved as the erythema has descended. ASSESSMENT AND PLAN: 1. Bilateral lower extremity atherosclerosis with left lower extremity diabetic foot infection. It seems that the patient has developed significant infection of the left lower extremity that is curr ently being treated by antibiotics. No current vascular intervention as the patient has not develop ed any gangrene or ulcers. The patient, however, does have what seems to be cellulitis and has some edema in the segment of her lower leg, which will require further evaluation by general surgery col leagues for possible I and D. We will recommend obtaining a CT scan of the left lower extremity for evaluation of her cutaneous tissue edema. 2. Discussed findings, plan and management with the patient with a certified c unix developer and she und vito. However, the patient is unable to explain why she is on methotrexate and what condition w as being treated for her to be placed on that medication and how long she has been on it. 3. Optimize vascular status (BP meds, diet, nutrition, exercise, sugar control, antiplatelets). Thank you for allowing us to partake in the care of your patient. Please call with any questions. Dictated By: MOOK SANTIAGO/BROOKE Conf#: [id number] DID#: [id number]
[2017-08-29 15:34] VITALS: BP 142/64; PULSE 76
[2017-08-29] MEDS: FILGRASTIM 480 MCG INJ SC SCH (17:19)
--- NOTE | 2017-08-29 18:34 | CONS ---
Date/Time of Note Date/Time of Note DATE: 08/29/17 TIME: 18:33 Assessment/Plan Assessment/Plan Chief Complaint/Hosp Course A/P BK ATN SEPSIS/CELLULITES PANCYTOPENIA PVD DIABETIC NEPHROPATHY DM DIAB NEPH METABOLIC ACIDOSIS HYPOKALEMIA PLAN BICITRA NAHCO3 IV FLUID KCL Problems: Consultation Date/Type/Reason Admit Date/Time Aug 24, 2017 at 19:05 Initial Consult Date 08/27/17 Type of Consultation: renal Referring Provider: NATHANIEL LAGOS MD 24 HR Interval Summary Constitutional: other (leg pain+) Exam/Review of Systems Vital Signs Vitals Vital Signs Date Time Temp Pulse Resp B/P Pulse Ox O2 Delivery O2 Flow Rate FiO2 08/29/17 15:34 76 142/64 08/29/17 14:00 98.3 18 98 08/26/17 20:00 Room Air Intake and Output 08/28/17 08/28/17 08/29/17 15:00 23:00 07:00 Intake Total 790 ml 390 ml 1600 ml Output Total 900 ml 425 ml Balance 790 ml -510 ml 1175 ml Exam Neck: supple Respiratory: clear to auscultation Cardiovascular: regular rate and rhythm Gastrointestinal: bowel sounds (+), soft Extremities: edema (++) Results Result Diagram: 08/29/1728 08/29/17527 Results 24 hrs Laboratory Tests Test 08/28/17 21:03 08/29/17 02:10 08/29/17 05:28 08/29/17 07:21 Bedside Glucose 212 203 White Blood Count 0.4 #L Red Blood Count 2.39 L Hemoglobin 7.2 L Hematocrit 21.1 L Mean Corpuscular Volume 88.3 Mean Corpuscular Hemoglobin 30.1 Mean Corpuscular Hemoglobin Concent 34.1 Red Cell Distribution Width 14.9 H Platelet Count 20 #*L Mean Platelet Volume 10.5 H Neutrophils % Lymphocytes % Lymphocytes % (Manual) 60 H Monocytes % Monocytes % (Manual) 1 Eosinophils % Eosinophils % (Manual) 39 H Basophils % Nucleated Red Blood Cells % 0.0 Neutrophils # Absolute Lymphocytes (Manual) 0.2 L Lymphocytes # Monocytes # Absolute Monocytes (Manual) 0.0 L Eosinophils # Basophils # Nucleated Red Blood Cells # Platelet Estimate SIG DECREASED Poikilocytosis 1+ Anisocytosis 1+ Microcytosis 1+ Macrocytosis 1+ Sodium Level 137 Potassium Level 3.4 L Chloride Level 114 H Carbon Dioxide Level 14 L Anion Gap 12 Blood Urea Nitrogen 43 H Creatinine 3.50 H Glucose Level 181 Calcium Level 7.7 L Phosphorus Level 4.3 Magnesium Level 1.7 Lab Scanned Report BLOOD TRANSFUSION Test 08/29/17 08:20 08/29/17 10:37 08/29/17 12:12 08/29/17 17:17 Bedside Glucose 204 176 147 173 Medications Medications Current Medications Ondansetron HCl (Zofran Inj) 4 mg Q6H PRN IV NAUSEA AND/OR VOMITING Last administered on 08/29/17 08:36; Admin Dose 4 MG; Start 08/25/17 at 08:00 Morphine Sulfate (morphine) 2 mg Q4H PRN IV SEVERE PAIN LEVEL 7-10 Last administered on 08/27/17 08:32; Admin Dose 2 MG; Start 08/25/17 at 08:00 Amlodipine Besylate (Norvasc) 5 mg DAILY PO Last administered on 08/29/17 11: 01; Admin Dose 5 MG; Start 08/25/17 at 09:00 Bisoprolol Fumarate (Zebeta) 10 mg DAILY PO Last administered on 08/29/17 11: 04; Admin Dose 10 MG; Start 08/25/17 at 09:00 Loratadine (Claritin) 10 mg DAILY PO Last administered on 08/29/17 11:05; Admin Dose 10 MG; Start 08/25/17 at 09:00 Losartan Potassium (Cozaar) 50 mg DAILY PO Last administered on 08/29/17 11: 04; Admin Dose 50 MG; Start 08/25/17 at 09:00 Sulfasalazine (Azulfidine) 500 mg BID PO Last administered on 08/29/17 10:59 ; Admin Dose 500 MG; Start 08/25/17 at 09:00 Diagnostic Test (Pha) 1 ea 1 ea 02 XX ; Start 08/26/17 at 02:00 Cefepime HCl (Maxipime 1gm/50 ml (Pmx)) 50 ml @ 100 mls/hr Q24H IVPB Last administered on 08/29/17 10:39; Admin Dose 100 MLS/HR; Start 08/25/17 at 10: 00 Miscellaneous Information 1 ea NOTE XX ; Start 08/25/17 at 14:00 Glucose (Glutose) 15 gm Q15M PRN PO DECREASED GLUCOSE; Start 08/25/17 at 14:00 Glucose (Glutose) 22.5 gm Q15M PRN PO DECREASED GLUCOSE; Start 08/25/17 at 14: 00 Dextrose (D50w Syringe) 25 ml Q15M PRN IV DECREASED GLUCOSE Last administered on 08/27/17 18:20; Admin Dose 25 ML; Start 08/25/17 at 14:00 Dextrose (D50w Syringe) 50 ml Q15M PRN IV DECREASED GLUCOSE; Start 08/25/17 at 14:00 Glucagon (Glucagen) 1 mg Q15M PRN IM DECREASED GLUCOSE; Start 08/25/17 at 14: 00 Glucose (Glutose) 15 gm Q15M PRN BUCCAL DECREASED GLUCOSE; Start 08/25/17 at 14:00 Acetaminophen 650 mg 650 mg Q4H PRN PO PAIN AND OR ELEVATED TEMP Last administered on 08/26/17 17:06; Admin Dose 650 MG; Start 08/25/17 at 20:30 Vancomycin HCl (Vancocin) 250 ml @ 125 mls/hr Q72H IVPB Last administered on 08/29/17 11:10; Admin Dose 125 MLS/HR; Start 08/26/17 at 10:00 Filgrastim 480 mcg 480 mcg DAILY@17 SC Last administered on 08/29/17 17:19; Admin Dose 480 MCG; Start 08/27/17 at 17:00 Fluconazole (Diflucan 200 Mg/ NS (Pmx)) 100 ml @ 100 mls/hr Q24H IVPB Last administered on 08/29/17 13:51; Admin Dose 100 MLS/HR; Start 08/27/17 at 13: 00 Insulin Glargine 9 unit 9 unit DAILY@10 SC Last administered on 08/29/17 10: 46; Admin Dose 9 UNIT; Start 08/28/17 at 10:00 Dextrose/Sodium Chloride 1,000 ml @ 100 mls/hr Q10H IV Last administered on 08:55; Admin Dose 100 MLS/HR; Start 08/28/17 at 13:00 Leucovorin Calcium/Dextrose (Leucovorin Calcium Inj/D5W) 50 ml @ 200 mls/hr Q6 IV Last administered on 10/15/17at 12:13; Admin Dose 200 MLS/HR; Start at 19:00 Miscellaneous Medication (Bax Susp) 10 ml TID PO Last administered on t 13:51; Admin Dose 10 ML; Start 08/29/17 at 13:00 Citric Acid/ Sodium Citrate (Bicitra) 30 ml TID PO ; Start 08/29/17 at 21:00 JENNA PATTEN MD Aug 29, 2017 18:34
[2017-08-29] MEDS ORDERED: POTASSIUM CHLORIDE 50 ML IVPB ONE (19:00)
[2017-08-29] MEDS ORDERED: KCL 20 MEQ in NS 100 ML IV ONE (19:30)
[2017-08-29 19:31] VITALS: BP 143/67; RESP 18
--- NOTE | 2017-08-29 23:20 | CONS ---
Date/Time of Note Date/Time of Note DATE: 08/29/17 TIME: 23:20 Assessment/Plan Assessment/Plan Chief Complaint/Hosp Course 1. Left lower extremity cellulitis and edema with history of diabetes -IV antibiotics -Elevate above heart level -Agree with CT lower extremity, pending 2. Pancytopenia with history of unknown reason for methotrexate therapy -Hematology follow-up and optimization 3. Diabetes -Nutrition medication optimization -Encourage weight loss 4. Hypertension -Nutrition medication optimization -Encourage weight loss 5. Chronic kidney disease -Judicious fluid management -Avoid nephrotoxic agents 6. Abnormal LFTs of unknown etiology may be secondary to fatty liver -Monitor 7. Hypoalbuminemia with hypocalcemia -Nutritional optimization Thank you very much for consulting me in this patient's care, Problems: Consultation Date/Type/Reason Admit Date/Time Aug 24, 2017 at 19:05 Date of Consultation: Aug 29, 2017 Type of Consultation: General surgical Reason for Consultation Left lower extremity edema and cellulitis Pancytopenia BMI 30 Abnormal LFTs Hypoalbuminemia Renal failure/ATN Referring Provider: GIA DUMONT Hx of Present Illness Mae Amor is a 61yo female from [facility] who presented to [facility] 2nd to left lower extremity discomfort, pain, redness and swelling that was identified to have cellulitis and was admitted for evaluation. Duplex is negative for DVT however ultrasound shows monophasic flow with probable inflow disease. Further, the patient has pancytopenia that seemed to be secondary methotrexate which has been given to her since back in [facility]. The patient and family are unaware of nature of her previous treatments. She denies any chest pain or shortness of breath. No cough. No seizure. No abdominal pain. No nausea vomiting. No visual neurologic changes except pain in left lower extremity and decreased mobility. General surgical consult is obtained further evaluation and treatment. 12 point review of systems negative unless addressed in HPI Constitutional: other (leg pain+) Psychological: nl mood/affect, no complaints Past Medical History Pancytopenia Methotrexate tx Hypertension Diabetes Chronic kidney disease Left lower extremity cellulitis with edema Left lower extremity pain Monophasic signals left lower extremity Hypocalcemia Hypoalbuminemia Abnormal LFTs BMI 30 Past Surgical History Past Surgical Hx: no surgical history Family History Significant Family History: hypertension Social History Alcohol Use: none Smoking Status: Never smoker Drug Use: none Exam/Review of Systems Vital Signs Vitals Vital Signs Date Time Temp Pulse Resp B/P Pulse Ox O2 Delivery O2 Flow Rate FiO2 08/29/17 19:31 98.1 75 18 143/67 100 08/26/17 20:00 Room Air Intake and Output 08/28/17 08/28/17 08/29/17 15:00 23:00 07:00 Intake Total 790 ml 390 ml 1600 ml Output Total 900 ml 425 ml Balance 790 ml -510 ml 1175 ml Exam Constitutional: obese, other (Awake), No distress Psych: nl mood/affect, No anxiety Head: atraumatic, normocephalic Eyes: EOMI, PERRL, nl conjunctiva, No icteric ENMT: mucosa pink and moist, nl external ears & nose, nl lips & teeth Neck: non-tender, supple, No jvd Respiratory: normal air movement, No congested cough, No labored breathing, No wheezing Cardiovascular: edema (Left lower extremity), regular rate and rhythm Gastrointestinal: non-tender, soft, No rebound or guarding Musculoskeletal: joint tenderness (Left ankle), No nl extremities to inspection Extremities: edema, normal pulses, pitting pedal edema, tenderness, No calf tenderness Neurological: nl mental status, nl strength Skin: rash or lesions (Left lower extremity), No diaphoresis, No nl turgor Lymph: nl lymph nodes, nontender Results Result Diagram: 08/29/1752708/29/17527 Results 24 hrs Laboratory Tests Test 08/29/17 02:10 08/29/17 05:28 08/29/17 07:21 08/29/17 08:20 Bedside Glucose 203 204 White Blood Count 0.4 #L Red Blood Count 2.39 L Hemoglobin 7.2 L Hematocrit 21.1 L Mean Corpuscular Volume 88.3 Mean Corpuscular Hemoglobin 30.1 Mean Corpuscular Hemoglobin Concent 34.1 Red Cell Distribution Width 14.9 H Platelet Count 20 #*L Mean Platelet Volume 10.5 H Neutrophils % Lymphocytes % Lymphocytes % (Manual) 60 H Monocytes % Monocytes % (Manual) 1 Eosinophils % Eosinophils % (Manual) 39 H Basophils % Nucleated Red Blood Cells % 0.0 Neutrophils # Absolute Lymphocytes (Manual) 0.2 L Lymphocytes # Monocytes # Absolute Monocytes (Manual) 0.0 L Eosinophils # Basophils # Nucleated Red Blood Cells # Platelet Estimate SIG DECREASED Poikilocytosis 1+ Anisocytosis 1+ Microcytosis 1+ Macrocytosis 1+ Sodium Level 137 Potassium Level 3.4 L Chloride Level 114 H Carbon Dioxide Level 14 L Anion Gap 12 Blood Urea Nitrogen 43 H Creatinine 3.50 H Glucose Level 181 Calcium Level 7.7 L Phosphorus Level 4.3 Magnesium Level 1.7 Lab Scanned Report BLOOD TRANSFUSION Test 08/29/17 10:37 08/29/17 12:12 08/29/17 17:17 08/29/17 21:37 Bedside Glucose 176 147 173 196 Medications Medications Current Medications Ondansetron HCl (Zofran Inj) 4 mg Q6H PRN IV NAUSEA AND/OR VOMITING Last administered on 08/29/17 08:36; Admin Dose 4 MG; Start 08/25/17 at 08:00 Morphine Sulfate (morphine) 2 mg Q4H PRN IV SEVERE PAIN LEVEL 7-10 Last administered on 08/27/17 08:32; Admin Dose 2 MG; Start 08/25/17 at 08:00 Amlodipine Besylate (Norvasc) 5 mg DAILY PO Last administered on 08/29/17 11: 01; Admin Dose 5 MG; Start 08/25/17 at 09:00 Bisoprolol Fumarate (Zebeta) 10 mg DAILY PO Last administered on 08/29/17 11: 04; Admin Dose 10 MG; Start 08/25/17 at 09:00 Loratadine (Claritin) 10 mg DAILY PO Last administered on 08/29/17 11:05; Admin Dose 10 MG; Start 08/25/17 at 09:00 Losartan Potassium (Cozaar) 50 mg DAILY PO Last administered on 08/29/17 11: 04; Admin Dose 50 MG; Start 08/25/17 at 09:00 Sulfasalazine (Azulfidine) 500 mg BID PO Last administered on 08/29/17 21:39 ; Admin Dose 500 MG; Start 08/25/17 at 09:00 Diagnostic Test (Pha) 1 ea 1 ea 02 XX ; Start 08/26/17 at 02:00 Cefepime HCl (Maxipime 1gm/50 ml (Pmx)) 50 ml @ 100 mls/hr Q24H IVPB Last administered on 08/29/17 10:39; Admin Dose 100 MLS/HR; Start 08/25/17 at 10: 00 Miscellaneous Information 1 ea NOTE XX ; Start 08/25/17 at 14:00 Glucose (Glutose) 15 gm Q15M PRN PO DECREASED GLUCOSE; Start 08/25/17 at 14:00 Glucose (Glutose) 22.5 gm Q15M PRN PO DECREASED GLUCOSE; Start 08/25/17 at 14: 00 Dextrose (D50w Syringe) 25 ml Q15M PRN IV DECREASED GLUCOSE Last administered on 08/27/17 18:20; Admin Dose 25 ML; Start 08/25/17 at 14:00 Dextrose (D50w Syringe) 50 ml Q15M PRN IV DECREASED GLUCOSE; Start 08/25/17 at 14:00 Glucagon (Glucagen) 1 mg Q15M PRN IM DECREASED GLUCOSE; Start 08/25/17 at 14: 00 Glucose (Glutose) 15 gm Q15M PRN BUCCAL DECREASED GLUCOSE; Start 08/25/17 at 14:00 Acetaminophen 650 mg 650 mg Q4H PRN PO PAIN AND OR ELEVATED TEMP Last administered on 08/26/17 17:06; Admin Dose 650 MG; Start 08/25/17 at 20:30 Vancomycin HCl (Vancocin) 250 ml @ 125 mls/hr Q72H IVPB Last administered on 08/29/17 11:10; Admin Dose 125 MLS/HR; Start 08/26/17 at 10:00 Filgrastim 480 mcg 480 mcg DAILY@17 SC Last administered on 08/29/17 17:19; Admin Dose 480 MCG; Start 08/27/17 at 17:00 Fluconazole (Diflucan 200 Mg/ NS (Pmx)) 100 ml @ 100 mls/hr Q24H IVPB Last administered on 08/29/17 13:51; Admin Dose 100 MLS/HR; Start 08/27/17 at 13: 00 Insulin Glargine 9 unit 9 unit DAILY@10 SC Last administered on 08/29/17 10: 46; Admin Dose 9 UNIT; Start 08/28/17 at 10:00 Dextrose/Sodium Chloride 1,000 ml @ 100 mls/hr Q10H IV Last administered on 08:55; Admin Dose 100 MLS/HR; Start 08/28/17 at 13:00 Leucovorin Calcium/Dextrose (Leucovorin Calcium Inj/D5W) 50 ml @ 200 mls/hr Q6 IV Last administered on 08/29/17 18:39; Admin Dose 200 MLS/HR; Start at 19:00 Miscellaneous Medication (Bax Susp) 10 ml TID PO Last administered on 21:38; Admin Dose 10 ML; Start 08/29/17 at 13:00 Citric Acid/ Sodium Citrate (Bicitra) 30 ml TID PO Last administered on 21:39; Admin Dose 30 ML; Start 08/29/17 at 21:00 BOB FUNEZ MD Aug 29, 2017 23:20
[2017-08-30] MEDS: DEXTROSE 5% IV SCH ×4 (00:04→22:28)
[2017-08-30] MEDS: LEUCOVORIN CALCIUM IV SCH ×4 (00:04→22:28)
[2017-08-30 01:34] VITALS: BP 151/77; RESP 18
[2017-08-30] MEDS: ACCU-CHEK XX SCH (02:00)
[2017-08-30] MEDS: DEXTROSE 5%-0.45% NACL 1,000 ML IV SCH (05:01)
[2017-08-30 07:32] VITALS: BP 134/94; RESP 18
--- NOTE | 2017-08-30 07:45 | CONS ---
DATE OF ADMISSION: 08/24/2017 DATE OF CONSULTATION: Thank you, Dr. Nishant Wayne and Dr. shannon for kindly asking me to see this patient in nephrology consultation. The patient is a Serbian-speaking female who has a history of CKD, per patient; a history of hypertension, diabetes mellitus. Presented with cellulitis of the left leg, on antibiotic. The patient also noted to have pancytopenia and electrolyte imbalance, and nephrology consultation is requested. The patient is on sulfasalazine and also the patient is on methotrexate, the reason of this medication is not known. The patient is complaining of weakness, tiredness, short of breath. The patient noted to have a WBC .7, hematocrit , hemoglobin of 5.7. The patient has a platelet count of 57, eosinophil is 16. The patient's sodium 128, potassium 4, BUN 44, creatinine 4.20 at the time of admission. AST 322, ALT 110 , alkaline phosphatase 174. The patient's urinalysis specific gravity of 1.010 and bacteria few, protein 3+, and the patient's ____ is negative. Hepatitis panel is negative. The patient's latest levels today sodium , potassium 4, BUN of 24, creatinine 3.76, calcium 7.8. The patient is complaining of weakness, tiredness, leg pain, body ache. Denies any nonsteroidal anti-inflammatory drug abuse. Denies any history of . ALLERGY HISTORY: NEGATIVE. FAMILY HISTORY: Noncontributory. SOCIAL HISTORY: Negative. MEDICATION HISTORY: The patient's medication history includes the patient is on : 1. Cefepime. 2. Diflucan. 3. Fluconazole. 4. Sodium chloride with sodium bicarbonate. 5. Vancomycin. 6. Albuterol. 7. Amlodipine. 8. Bisoprolol/Zebeta. 9. Ferrous sulfate. 10. Neupogen. 11. Insulin. 12. Viscous lidocaine 2%. 13. Loratadine. 14. Losartan. 15. Zofran. 16. Sulfasalazine. 17. Vancomycin. Methotrexate has been discontinued. REVIEW OF SYSTEMS: HEENT: Unremarkable. RESPIRATORY: Unremarkable. CARDIOVASCULAR: . ABDOMEN: Dyspepsia. EXTREMITIES: Pain, swelling, and redness of the left lower extremity. CENTRAL NERVOUS SYSTEM: Generalized weakness. PHYSICAL EXAMINATION: GENERAL: The patient is an anxious-looking female, awake, alert. VITAL SIGNS: Pulse 80, blood pressure 139/85. HEAD: Atraumatic, normocephalic. Pupils equal, reactive to light. NECK: Supple. No JVD. LUNGS: Clear. CARDIOVASCULAR: S1, S2 are normal. ABDOMEN: Soft, obese, bowel sounds present, no palpable mass. EXTREMITIES: The patient has swelling of the left lower extremity, redness, warmness, and tenderness noted. The patient's chest x-ray shows the patient has increased bronchovascular markings. The patient's ultrasound showed no evidence of DVT. Abdominal ultrasound normal. _ small left pleural effusion. Kidneys are normal in size. Right kidney 8.4, left kidney 9.4 cm. The patient had a normal examination with diffusely dampened waveform in the left lower lobe, which are monophasic at and below the mid-SFA. IMPRESSION 1. The patient has possible acute on-chronic kidney disease. 2. Acute kidney injury due to sepsis. 3. Underlying acute tubular necrosis, possibly sepsis-induced due to cellulitis of the left lower extremity. 4. The patient has a history of diabetes mellitus with underlying possible diabetic nephropathy, underlying hypertensive nephrosclerosis, pancytopenia due to sepsis, as well as drug-induced methotrexate. 5. Hyponatremia. 6. Metabolic acidosis. 7. edema legs 8. Incomplete database. PLAN: To obtain a UA, urine sodium, creatinine, eosinophil. The patient will have phosphorus, magnesium ____ urine protein, albumin/creatinine ratio. The patient will be started on IV fluid with sodium bicarbonate. Electrolytes will be monitored. Thank you, Dr. Nishant Wayne and for kindly asking me to see pt in renal consultation . Dictated By: JENNA PATTEN MD BS/NTS Conf#: [id number] DID#: [id number] CC: NISHANT WAYNE MD; NATHANIEL LAGOS MD;*EndCC* MTDD
--- NOTE | 2017-08-30 07:46 | PN ---
DATE: 08/27/2017 SUBJECTIVE: Patient is awake. Complaining of left lower extremity pain. She is in no distress, af ebrile. WBC 0.5, H and H 7.9 and 23.3, platelets 52. BUN 44, creatinine 3.76. MICROBIOLOGY: Blood and urine cultures negative. DIAGNOSTICS: Chest x-ray on admission revealed mild bibasilar atelectasis, left lower extremity ult rasound revealed no DVT. Abdominal ultrasound revealed normal appearance of the liver. ANTIMICROBIALS: Patient is on: 1. Fluconazole. 2. Vancomycin. 3. Cefepime. PHYSICAL EXAMINATION: GENERAL: This is a fragile, well-developed, elderly woman who is awake, in no distress. HEENT: Head atraumatic, normocephalic. Sclerae anicteric. Buccal mucosa dry. NECK: Supple. CHEST: Rise symmetrical. Breath sounds diminished to bases. HEART: S1, S2. ABDOMEN: Soft, bowel tones present. EXTREMITIES: Left lower extremity edema, erythema and pain with palpation. ASSESSMENT: 1. Left lower extremity cellulitis. 2. Systemic inflammatory response syndrome. 3. Severe pancytopenia and neutropenia, likely secondary to methotrexate. 4. Acute kidney injury, possibly on chronic kidney disease. 5. Diabetes. 6. Hypertension. PLAN: The patient remains stable. Hematology follows her. She is on appropriate antibiotics, whic h we will continue. Consider nephrology evaluation. Keep left lower extremity elevated. Dictated By: CODY VASQUEZ LAMBSKIN TRIMMER for [facility] Conf#: [id number] DID#: [id number]
--- NOTE | 2017-08-30 07:46 | PN ---
DATE: 08/27/2017 SUBJECTIVE: Patient is awake. Complaining of left lower extremity pain. She is in no distress, af ebrile. WBC 0.5, H and H 7.9 and 23.3, platelets 52. BUN 44, creatinine 3.76. MICROBIOLOGY: Blood and urine cultures negative. DIAGNOSTICS: Chest x-ray on admission revealed mild bibasilar atelectasis, left lower extremity ult rasound revealed no DVT. Abdominal ultrasound revealed normal appearance of the liver. ANTIMICROBIALS: Patient is on: 1. Fluconazole. 2. Vancomycin. 3. Cefepime. PHYSICAL EXAMINATION: GENERAL: This is a fragile, well-developed, elderly woman who is awake, in no distress. HEENT: Head atraumatic, normocephalic. Sclerae anicteric. Buccal mucosa dry. NECK: Supple. CHEST: Rise symmetrical. Breath sounds diminished to bases. HEART: S1, S2. ABDOMEN: Soft, bowel tones present. EXTREMITIES: Left lower extremity edema, erythema and pain with palpation. ASSESSMENT: 1. Left lower extremity cellulitis. 2. Systemic inflammatory response syndrome. 3. Severe pancytopenia and neutropenia, likely secondary to methotrexate. 4. Acute kidney injury, possibly on chronic kidney disease. 5. Diabetes. 6. Hypertension. PLAN: The patient remains stable. Hematology follows her. She is on appropriate antibiotics, whic h we will continue. Consider nephrology evaluation. Keep left lower extremity elevated. Dictated By: CODY VASQUEZ TECHNOLOGIST INFECTIOUS DISEASE for [facility] Conf#: [id number] DID#: [id number]
--- NOTE | 2017-08-30 07:46 | PN ---
DATE: 08/27/2017 SUBJECTIVE: Patient is awake. Complaining of left lower extremity pain. She is in no distress, af ebrile. WBC 0.5, H and H 7.9 and 23.3, platelets 52. BUN 44, creatinine 3.76. MICROBIOLOGY: Blood and urine cultures negative. DIAGNOSTICS: Chest x-ray on admission revealed mild bibasilar atelectasis, left lower extremity ult rasound revealed no DVT. Abdominal ultrasound revealed normal appearance of the liver. ANTIMICROBIALS: Patient is on: 1. Fluconazole. 2. Vancomycin. 3. Cefepime. PHYSICAL EXAMINATION: GENERAL: This is a fragile, well-developed, elderly woman who is awake, in no distress. HEENT: Head atraumatic, normocephalic. Sclerae anicteric. Buccal mucosa dry. NECK: Supple. CHEST: Rise symmetrical. Breath sounds diminished to bases. HEART: S1, S2. ABDOMEN: Soft, bowel tones present. EXTREMITIES: Left lower extremity edema, erythema and pain with palpation. ASSESSMENT: 1. Left lower extremity cellulitis. 2. Systemic inflammatory response syndrome. 3. Severe pancytopenia and neutropenia, likely secondary to methotrexate. 4. Acute kidney injury, possibly on chronic kidney disease. 5. Diabetes. 6. Hypertension. PLAN: The patient remains stable. Hematology follows her. She is on appropriate antibiotics, whic h we will continue. Consider nephrology evaluation. Keep left lower extremity elevated. Dictated By: CODY VASQUEZ REGISTRATION SPECIALIST for [facility] Conf#: [id number] DID#: [id number]
[2017-08-30] MEDS: INSULIN ASPART [NOVOLOG] 3 ML PEN SC SCH ×4 (08:12→22:26)
--- NOTE | 2017-08-30 09:23 | RADRPT ---
PROCEDURE: US Lower extremity Venous. CLINICAL INDICATION: Vein mapping TECHNIQUE: Multiple sonographic images of the bilateral lower extremity superficial venous system was obtained utilizing grayscale, color-flow, compressive sonography and doppler imaging with augmen tation. The images were reviewed on a PACS workstation. COMPARISON: None. FINDINGS: Bilateral greater and lesser saphenous veins are widely patent. Measurements from the great saphenous veins were obtained. Right great saphenous vein was divided into 11 segments with the first segment being more proximal i n the 9th segment more distal. Measurements were obtained as below in mm. 1. 5.4 mm 2. 3.1 mm 3. 1.5 mm 4. 2.3 mm 5. 0.9 mm 6. 0.8 mm 7. 1.3 mm 8. 0.8 mm 9. 1.5 mm 10. 0.9 mm 11. 0.3 mm Left great saphenous vein was divided into 11 segments with the first segment being more proximal in the 9th segment more distal. Measurements were obtained as below in mm. 1. 4.8 mm 2. 5.4 mm 3. 3.8 mm 4. 3.5 mm 5. 3.4 mm 6. 3.1 mm 7. 3.3 mm 8. 2.1 mm 9. 3.1 mm 10. 2.6 mm 11. 2.0 mm . IMPRESSION: Bilateral greater saphenous vein mapping as described. RPTAT: AA Physician Cindy Date Time Electronically viewed and signed by Physician Cindy on 08/30/2017 09:22 /
--- NOTE | 2017-08-30 09:33 | PN ---
Date/Time of Note Date/Time of Note DATE: 08/30/17 TIME: 09:33 Assessment/Plan VTE Prophylaxis VTE Prophylaxis Intervention: SCD's Lines/Catheters IV Catheter Type (from Nrsg): Peripheral IV Urinary Cath still in place: Yes Reason Cath still needed: skin wounds contaminated by urine Assessment/Plan Assessment/Plan 1. Pancytopenia - Hematology on board and recommendations appreciated - Hbg this am 6.9 and will give one unit PRBC. Plt 15K and will hold off on plt transfusion unless pooja bleeding or <10K - s/p blood transfusions and plt transfusions. - Still unknown why patient was on methotrexate, ?IBD?rheumatology, called patient's daughter yesterday, however did not know why patient is taking those medications, Daughter stated she will try to get the name of the family doctor. 2. Mucositis 2/2 methotrexate use - lidocaine viscous has effective and diphen/lido/mal oral solution ordered. Morphine if pain remain intolerable for PO intake - changed to pureed diet 2/2 difficulty consuming soft diet 3. Left lower extremity cellulitis - ID and Surgery on board. Recommendations appreciated - Will continue current management - awaiting CT LE results 4. Vascular insufficiency - Vascular surgery on board and recommendations appreciated. No current vascular intervention as the patient has not developed any gangrene or ulcers 5. Neutropenia - remains low. On Neupogen - Heme on board and recommendations appreciated 6. BK vs BK on CKD - Nephrology on board and recommendations appreciated. Given iv bicarb total 1 L for NAG. - Cr improving - Monitor UOP - Monitor electrolytes and will replace as needed - RPR, HIV, c3,c 4, SPEP/UPEP and Microalbumin/cr ratio ordered 7. Disposition - Will continue monitoring on Med/Surg Subjective 24 Hr Interval Summary Free Text/Dictation Patient states still having difficulty eating and requesting softer foods. Despite using [facility] phone, was hard to get complete ROS from patient. Service Order Dispatcher #[id number] states patient was not answering questions fully. Patient states she has many issues but most concerning is pain in mouth, weakness, and LLE pain. No acute overnight events. Exam/Review of Systems Vital Signs Vitals Vital Signs Date Time Temp Pulse Resp B/P Pulse Ox O2 Delivery O2 Flow Rate FiO2 08/30/17 07:32 98.8 80 18 134/94 98 08/26/17 20:00 Room Air Intake and Output 08/29/17 08/29/17 08/30/17 15:00 23:00 07:00 Intake Total 200 ml 1150 ml 660 ml Output Total 600 ml 350 ml Balance 200 ml 550 ml 310 ml Exam Gen : Flat affect, mild bleeding from bottom lips HEENT: NC/AT, EOM intact, PERRL Neck: Supple, full ROM Respiratory: CTAB, no wheezes or crackles Cardiovascular: nl pulses, regular rate and rhythm. no murmurs Gastrointestinal: Soft, NT, no rebound or guarding. non distended Extremities: LLE erythema, warmth, and tenderness. Dry skin with chronic hyperpigmentation Results Result Diagram: 08/30/17 0530 08/30/17 0530 Results 24 hrs Laboratory Tests Test 08/29/17 10:37 08/29/17 12:12 08/29/17 17:17 08/29/17 21:37 Bedside Glucose 176 147 173 196 Test 08/30/17 02:45 08/30/17 05:30 08/30/17 06:41 08/30/17 07:16 Bedside Glucose 197 White Blood Count 0.8 #L Red Blood Count 2.37 L Hemoglobin 6.9 *L Hematocrit 20.7 L Mean Corpuscular Volume 87.3 Mean Corpuscular Hemoglobin 29.1 Mean Corpuscular Hemoglobin Concent 33.3 Red Cell Distribution Width 15.1 H Platelet Count 15 #*L Mean Platelet Volume 11.7 H Neutrophils % Segmented Neutrophils % (Manual) 2 L Lymphocytes % Lymphocytes % (Manual) 50 Monocytes % Monocytes % (Manual) 5 Eosinophils % Eosinophils % (Manual) 43 H Basophils % Nucleated Red Blood Cells % 0.0 Neutrophils # Absolute Lymphocytes (Manual) 0.4 L Lymphocytes # Monocytes # Absolute Monocytes (Manual) 0.0 L Eosinophils # Basophils # Nucleated Red Blood Cells # Platelet Estimate SIG DECREASED Poikilocytosis 3+ Anisocytosis 1+ Macrocytosis 1+ Echinocytes 2+ Sodium Level 136 Potassium Level 3.5 Chloride Level 114 H Carbon Dioxide Level 14 L Anion Gap 12 Blood Urea Nitrogen 41 H Creatinine 3.21 H Glucose Level 189 Calcium Level 7.7 L Phosphorus Level 4.0 Magnesium Level 1.6 L Lab Scanned Report BLOOD TRANSFUSION REFERENCE LAB Test 08/30/17 08:04 Bedside Glucose 216 Medications Medications Current Medications Ondansetron HCl (Zofran Inj) 4 mg Q6H PRN IV NAUSEA AND/OR VOMITING Last administered on 08/29/17 08:36; Admin Dose 4 MG; Start 08/25/17 at 08:00 Morphine Sulfate (morphine) 2 mg Q4H PRN IV SEVERE PAIN LEVEL 7-10 Last administered on 08/27/17 08:32; Admin Dose 2 MG; Start 08/25/17 at 08:00 Amlodipine Besylate (Norvasc) 5 mg DAILY PO Last administered on 08/29/17 11: 01; Admin Dose 5 MG; Start 08/25/17 at 09:00 Bisoprolol Fumarate (Zebeta) 10 mg DAILY PO Last administered on 08/29/17 11: 04; Admin Dose 10 MG; Start 08/25/17 at 09:00 Loratadine (Claritin) 10 mg DAILY PO Last administered on 08/29/17 11:05; Admin Dose 10 MG; Start 08/25/17 at 09:00 Losartan Potassium (Cozaar) 50 mg DAILY PO Last administered on 08/29/17 11: 04; Admin Dose 50 MG; Start 08/25/17 at 09:00 Sulfasalazine (Azulfidine) 500 mg BID PO Last administered on 08/29/17 21:39 ; Admin Dose 500 MG; Start 08/25/17 at 09:00 Diagnostic Test (Pha) 1 ea 1 ea 02 XX ; Start 08/26/17 at 02:00 Cefepime HCl (Maxipime 1gm/50 ml (Pmx)) 50 ml @ 100 mls/hr Q24H IVPB Last administered on 08/29/17 10:39; Admin Dose 100 MLS/HR; Start 08/25/17 at 10: 00 Miscellaneous Information 1 ea NOTE XX ; Start 08/25/17 at 14:00 Glucose (Glutose) 15 gm Q15M PRN PO DECREASED GLUCOSE; Start 08/25/17 at 14:00 Glucose (Glutose) 22.5 gm Q15M PRN PO DECREASED GLUCOSE; Start 08/25/17 at 14: 00 Dextrose (D50w Syringe) 25 ml Q15M PRN IV DECREASED GLUCOSE Last administered on 08/27/17 18:20; Admin Dose 25 ML; Start 08/25/17 at 14:00 Dextrose (D50w Syringe) 50 ml Q15M PRN IV DECREASED GLUCOSE; Start 08/25/17 at 14:00 Glucagon (Glucagen) 1 mg Q15M PRN IM DECREASED GLUCOSE; Start 08/25/17 at 14: 00 Glucose (Glutose) 15 gm Q15M PRN BUCCAL DECREASED GLUCOSE; Start 08/25/17 at 14:00 Acetaminophen 650 mg 650 mg Q4H PRN PO PAIN AND OR ELEVATED TEMP Last administered on 08/26/17 17:06; Admin Dose 650 MG; Start 08/25/17 at 20:30 Vancomycin HCl (Vancocin) 250 ml @ 125 mls/hr Q72H IVPB Last administered on 08/29/17 11:10; Admin Dose 125 MLS/HR; Start 08/26/17 at 10:00 Filgrastim 480 mcg 480 mcg DAILY@17 SC Last administered on 08/29/17 17:19; Admin Dose 480 MCG; Start 08/27/17 at 17:00 Fluconazole (Diflucan 200 Mg/ NS (Pmx)) 100 ml @ 100 mls/hr Q24H IVPB Last administered on 08/29/17 13:51; Admin Dose 100 MLS/HR; Start 08/27/17 at 13: 00 Insulin Glargine 9 unit 9 unit DAILY@10 SC Last administered on 08/29/17 10: 46; Admin Dose 9 UNIT; Start 08/28/17 at 10:00 Dextrose/Sodium Chloride 1,000 ml @ 100 mls/hr Q10H IV Last administered on 05:01; Admin Dose 100 MLS/HR; Start 08/28/17 at 13:00 Leucovorin Calcium/Dextrose (Leucovorin Calcium Inj/D5W) 50 ml @ 200 mls/hr Q6 IV Last administered on 08/30/17 05:05; Admin Dose 200 MLS/HR; Start at 19:00 Miscellaneous Medication (Bax Susp) 10 ml TID PO Last administered on 21:38; Admin Dose 10 ML; Start 08/29/17 at 13:00 Citric Acid/ Sodium Citrate (Bicitra) 30 ml TID PO Last administered on 21:39; Admin Dose 30 ML; Start 08/29/17 at 21:00 JOANA BARKLEY MD Aug 30, 2017 09:33
[2017-08-30] MEDS: CITRIC ACID/NA CITRATE 30 ML CUP PO SCH ×4 (09:56→22:26)
[2017-08-30] MEDS: SULFASALAZINE 500 MG TAB PO SCH ×3 (09:59→22:28)
[2017-08-30] MEDS: LOSARTAN 50 MG TAB PO SCH (10:01)
[2017-08-30] MEDS: LORATADINE 10 MG TAB PO SCH (10:02)
[2017-08-30] MEDS: BISOPROLOL 5 MG TAB PO SCH (10:02)
[2017-08-30] MEDS: AMLODIPINE 5 MG TAB PO SCH (10:02)
--- NOTE | 2017-08-30 10:02 | CONS ---
Date/Time of Note Date/Time of Note DATE: 08/30/17 TIME: 09:46 Assessment/Plan Assessment/Plan Chief Complaint/Hosp Course 61 y/o with 1. acute on-chronic kidney disease with no known baseline could be due to underlying sepsis/meds vs drug induced 2 Underlying acute tubular necrosis, possibly sepsis-induced due to cellulitis of the left lower extremity. 3 Likely underlying diabetic nephropathy, underlying hypertensive nephrosclerosis 4 pancytopenia could be due to sepsis, as well as drug-induced mthx/sulpha 5. Hyponatremia. 6. Non gap Metabolic acidosis likely secondary to renal failure 7 Nephrotic range proteinuria 8 BLE atherosclerosis Plan - Will give iv bicarb total 1 L for NAG - Cr improving - Monitor UOP - IV abx per I.D renally dose all meds - Blood transfusion and possible plt transfusion today - replace Mg - Will send for RPR, HIV, c3,c 4, SPEP/UPEP and Microalbumin/cr ratio to complete protenuria wup - c/w Losartan Problems: Consultation Date/Type/Reason Admit Date/Time Aug 24, 2017 at 19:05 Initial Consult Date 08/29/17 Type of Consultation: General surgical Referring Provider: GIA DUMONT 24 HR Interval Summary Free Text/Dictation Pt appears distressed UOP was documented 350 ml Reina draining concentreated urine Exam/Review of Systems Vital Signs Vitals Vital Signs Date Time Temp Pulse Resp B/P Pulse Ox O2 Delivery O2 Flow Rate FiO2 08/30/17 07:32 98.8 80 18 134/94 98 08/26/17 20:00 Room Air Intake and Output 08/29/17 08/29/17 08/30/17 15:00 23:00 07:00 Intake Total 200 ml 1150 ml 660 ml Output Total 600 ml 350 ml Balance 200 ml 550 ml 310 ml Exam Gen : Flat affect, pt bleeding noted from lips HEENT: Unremarkable Neck: Supple, full ROM Respiratory: CTAB Cardiovascular: nl pulses, regular rate and rhythm Gastrointestinal: Soft, NT Extremities: Warml LLEXT edema/erythema/chronic hyperpigmentation changes distal pre-tibial Results Result Diagram: 08/30/17 0530 08/30/17 0530 Results 24 hrs Laboratory Tests Test 08/29/17 10:37 08/29/17 12:12 08/29/17 17:17 08/29/17 21:37 Bedside Glucose 176 147 173 196 Test 08/30/17 02:45 08/30/17 05:30 08/30/17 06:41 08/30/17 07:16 Bedside Glucose 197 White Blood Count 0.8 #L Red Blood Count 2.37 L Hemoglobin 6.9 *L Hematocrit 20.7 L Mean Corpuscular Volume 87.3 Mean Corpuscular Hemoglobin 29.1 Mean Corpuscular Hemoglobin Concent 33.3 Red Cell Distribution Width 15.1 H Platelet Count 15 #*L Mean Platelet Volume 11.7 H Neutrophils % Segmented Neutrophils % (Manual) 2 L Lymphocytes % Lymphocytes % (Manual) 50 Monocytes % Monocytes % (Manual) 5 Eosinophils % Eosinophils % (Manual) 43 H Basophils % Nucleated Red Blood Cells % 0.0 Neutrophils # Absolute Lymphocytes (Manual) 0.4 L Lymphocytes # Monocytes # Absolute Monocytes (Manual) 0.0 L Eosinophils # Basophils # Nucleated Red Blood Cells # Platelet Estimate SIG DECREASED Poikilocytosis 3+ Anisocytosis 1+ Macrocytosis 1+ Echinocytes 2+ Sodium Level 136 Potassium Level 3.5 Chloride Level 114 H Carbon Dioxide Level 14 L Anion Gap 12 Blood Urea Nitrogen 41 H Creatinine 3.21 H Glucose Level 189 Calcium Level 7.7 L Phosphorus Level 4.0 Magnesium Level 1.6 L Lab Scanned Report BLOOD TRANSFUSION REFERENCE LAB Test 08/30/17 08:04 Bedside Glucose 216 Medications Medications Current Medications Ondansetron HCl (Zofran Inj) 4 mg Q6H PRN IV NAUSEA AND/OR VOMITING Last administered on 08/29/17 08:36; Admin Dose 4 MG; Start 08/25/17 at 08:00 Morphine Sulfate (morphine) 2 mg Q4H PRN IV SEVERE PAIN LEVEL 7-10 Last administered on 08/27/17 08:32; Admin Dose 2 MG; Start 08/25/17 at 08:00 Amlodipine Besylate (Norvasc) 5 mg DAILY PO Last administered on 08/29/17 11: 01; Admin Dose 5 MG; Start 08/25/17 at 09:00 Bisoprolol Fumarate (Zebeta) 10 mg DAILY PO Last administered on 08/29/17 11: 04; Admin Dose 10 MG; Start 08/25/17 at 09:00 Loratadine (Claritin) 10 mg DAILY PO Last administered on 08/29/17 11:05; Admin Dose 10 MG; Start 08/25/17 at 09:00 Losartan Potassium (Cozaar) 50 mg DAILY PO Last administered on 08/29/17 11: 04; Admin Dose 50 MG; Start 08/25/17 at 09:00 Sulfasalazine (Azulfidine) 500 mg BID PO Last administered on 08/29/17 21:39 ; Admin Dose 500 MG; Start 08/25/17 at 09:00 Diagnostic Test (Pha) 1 ea 1 ea 02 XX ; Start 08/26/17 at 02:00 Cefepime HCl (Maxipime 1gm/50 ml (Pmx)) 50 ml @ 100 mls/hr Q24H IVPB Last administered on 08/29/17 10:39; Admin Dose 100 MLS/HR; Start 08/25/17 at 10: 00 Miscellaneous Information 1 ea NOTE XX ; Start 08/25/17 at 14:00 Glucose (Glutose) 15 gm Q15M PRN PO DECREASED GLUCOSE; Start 08/25/17 at 14:00 Glucose (Glutose) 22.5 gm Q15M PRN PO DECREASED GLUCOSE; Start 08/25/17 at 14: 00 Dextrose (D50w Syringe) 25 ml Q15M PRN IV DECREASED GLUCOSE Last administered on 08/27/17 18:20; Admin Dose 25 ML; Start 08/25/17 at 14:00 Dextrose (D50w Syringe) 50 ml Q15M PRN IV DECREASED GLUCOSE; Start 08/25/17 at 14:00 Glucagon (Glucagen) 1 mg Q15M PRN IM DECREASED GLUCOSE; Start 08/25/17 at 14: 00 Glucose (Glutose) 15 gm Q15M PRN BUCCAL DECREASED GLUCOSE; Start 08/25/17 at 14:00 Acetaminophen 650 mg 650 mg Q4H PRN PO PAIN AND OR ELEVATED TEMP Last administered on 08/26/17 17:06; Admin Dose 650 MG; Start 08/25/17 at 20:30 Vancomycin HCl (Vancocin) 250 ml @ 125 mls/hr Q72H IVPB Last administered on 08/29/17 11:10; Admin Dose 125 MLS/HR; Start 08/26/17 at 10:00 Filgrastim 480 mcg 480 mcg DAILY@17 SC Last administered on 08/29/17 17:19; Admin Dose 480 MCG; Start 08/27/17 at 17:00 Fluconazole (Diflucan 200 Mg/ NS (Pmx)) 100 ml @ 100 mls/hr Q24H IVPB Last administered on 08/29/17 13:51; Admin Dose 100 MLS/HR; Start 08/27/17 at 13: 00 Insulin Glargine 9 unit 9 unit DAILY@10 SC Last administered on 08/29/17 10: 46; Admin Dose 9 UNIT; Start 08/28/17 at 10:00 Dextrose/Sodium Chloride 1,000 ml @ 100 mls/hr Q10H IV Last administered on 05:01; Admin Dose 100 MLS/HR; Start 08/28/17 at 13:00 Leucovorin Calcium/Dextrose (Leucovorin Calcium Inj/D5W) 50 ml @ 200 mls/hr Q6 IV Last administered on 08/30/17 05:05; Admin Dose 200 MLS/HR; Start at 19:00 Miscellaneous Medication (Bax Susp) 10 ml TID PO Last administered on 21:38; Admin Dose 10 ML; Start 08/29/17 at 13:00 Citric Acid/ Sodium Citrate (Bicitra) 30 ml TID PO Last administered on 21:39; Admin Dose 30 ML; Start 08/29/17 at 21:00 ARDEN JACKMAN MD Aug 30, 2017 09:56
[2017-08-30] MEDS: DIPHENHYD/MYLANTA/LIDO (PO SYG) PO SCH ×5 (10:03→22:27)
[2017-08-30] MEDS: CEFEPIME 1GM/50 ML (PMX) 50 ML IVPB SCH (10:19)
[2017-08-30] MEDS: MAGNESIUM OXIDE 400 MG TAB PO SCH ×2 (10:40→22:27)
[2017-08-30] MEDS: SODIUM BICARBONATE (IV ADD) 100 MEQ in DEXTROSE 5% 1,000 ML IV SCH (11:50)
[2017-08-30] MEDS: INSULIN GLARGINE [LANtus] 3 ML PEN SC SCH (12:18)
[2017-08-30] MEDS: FLUCONAZOLE 200 MG/NS (PMX) 100 ML IVPB SCH (12:30)
--- NOTE | 2017-08-30 13:30 | PN ---
Date/Time of Note Date/Time of Note DATE: 08/30/17 TIME: 13:29 Assessment/Plan Lines/Catheters IV C[facility]ter Type (from [facility]): Peripheral IV Reina in Place (from [facility]): Yes Assessment/Plan Chief Complaint/Hosp Course 1. Left lower extremity cellulitis and edema with history of diabetes; No weeping/open areas; minimally improved -IV antibiotics -Elevate above heart level -CT lower extremity, pending 2. Pancytopenia with history of unknown reason for methotrexate therapy -Hematology follow-up and optimization 3. Diabetes -Nutrition medication optimization -Encourage weight loss 4. Hypertension -Nutrition medication optimization -Encourage weight loss 5. Chronic kidney disease: cr improving -Judicious fluid management -Avoid nephrotoxic agents 6. Abnormal LFTs of unknown etiology may be secondary to fatty liver -Monitor 7. Hypoalbuminemia with hypocalcemia -Nutritional optimization Thank you. Patient seen and examined in collaboration with Dr. William Russ. Problems: Subjective [address] pending. Left leg swelling improved, no open areas noted. Able to ambulate with assist. Min rom limitation. No fevers, chills, sob, congested cough, n/v/d /dysuria, walsh, dizziness. Exam/Review of Systems Vital Signs Vitals Vital Signs Date Time Temp Pulse Resp B/P Pulse Ox O2 Delivery O2 Flow Rate FiO2 08/30/17 07:32 98.8 80 18 134/94 98 08/26/17 20:00 Room Air Intake and Output 08/29/17 08/29/17 08/30/17 15:00 23:00 07:00 Intake Total 200 ml 1150 ml 660 ml Output Total 600 ml 350 ml Balance 200 ml 550 ml 310 ml Exam Free Text/Dictation Constitutional: obese, other (Awake), No distress Psych: nl mood/affect, No anxiety Head: atraumatic, normocephalic Eyes: EOMI, PERRL, nl conjunctiva, No icteric ENMT: mucosa pink and moist, nl external ears & nose, nl lips & teeth Neck: non-tender, supple, No jvd Respiratory: normal air movement, No congested cough, No labored breathing, No wheezing Cardiovascular: edema (Left lower extremity- min improved), regular rate and rhythm Gastrointestinal: non-tender, soft, No rebound or guarding Musculoskeletal: joint tenderness (Left ankle), No nl extremities to inspection Extremities: edema, normal pulses, pitting pedal edema, tenderness, No calf tenderness Neurological: nl mental status, nl strength Skin: rash or lesions (Left lower extremity-discoloration), No diaphoresis, No nl turgor Lymph: nl lymph nodes, nontender Results Result Diagram: 08/30/17 0530 08/30/17 0530 EDMUND KINCAID NP Aug 30, 2017 13:30
--- NOTE | 2017-08-30 14:59 | PN ---
DATE: 08/30/2017 INFECTIOUS DISEASE PROGRESS NOTE SUBJECTIVE: The patient is awake, complaining of lower extremity pain. She is in no distress. Afe brile. LABORATORY DATA: WBC 0.8, platelets 15, BUN 41, creatinine 3.21. MICROBIOLOGY: Urine and blood cultures negative. ANTIMICROBIALS: The patient is on: 1. Fluconazole. 2. Vancomycin. 3. Cefepime. PHYSICAL EXAMINATION: GENERAL: This is a well-developed, elderly woman who is awake, in no distress. HEENT: Head atraumatic, normocephalic. Sclerae anicteric. Buccal mucosa dry. NECK: Supple. CHEST: Rise symmetrical. Breath sounds diminished to bases. HEART: S1, S2. ABDOMEN: Soft, bowel tones present. EXTREMITIES: Without cyanosis. Left lower extremity still with swelling and erythema, painful to t ouch. ASSESSMENT: 1. Left lower extremity cellulitis. 2. Pancytopenia. 3. Neutropenia. 4. Acute possibly on chronic kidney disease. 5. Hypertension. 6. Diabetes. PLAN: The patient is hemodynamically stable. She is being seen by vascular surgery and general [facility]. She is covered with broad spectrum antibiotics. She is also on Neupogen as per oncology beatrice mmendations. We will continue her on current regimen, follow recommendations of consultants. The p atient is also being seen per nephrology. Dictated By: CODY VASQUEZ PARTS FINISHER for [facility] Conf#: [id number] DID#: [id number]
--- NOTE | 2017-08-30 14:59 | PN ---
DATE: 08/30/2017 INFECTIOUS DISEASE PROGRESS NOTE SUBJECTIVE: The patient is awake, complaining of lower extremity pain. She is in no distress. Afe brile. LABORATORY DATA: WBC 0.8, platelets 15, BUN 41, creatinine 3.21. MICROBIOLOGY: Urine and blood cultures negative. ANTIMICROBIALS: The patient is on: 1. Fluconazole. 2. Vancomycin. 3. Cefepime. PHYSICAL EXAMINATION: GENERAL: This is a well-developed, elderly woman who is awake, in no distress. HEENT: Head atraumatic, normocephalic. Sclerae anicteric. Buccal mucosa dry. NECK: Supple. CHEST: Rise symmetrical. Breath sounds diminished to bases. HEART: S1, S2. ABDOMEN: Soft, bowel tones present. EXTREMITIES: Without cyanosis. Left lower extremity still with swelling and erythema, painful to t ouch. ASSESSMENT: 1. Left lower extremity cellulitis. 2. Pancytopenia. 3. Neutropenia. 4. Acute possibly on chronic kidney disease. 5. Hypertension. 6. Diabetes. PLAN: The patient is hemodynamically stable. She is being seen by vascular surgery and general [facility]. She is covered with broad spectrum antibiotics. She is also on Neupogen as per oncology beatrice mmendations. We will continue her on current regimen, follow recommendations of consultants. The p atient is also being seen per nephrology. Dictated By: CODY VASQUEZ SAUSAGE TIER for [facility] Conf#: [id number] DID#: [id number]
--- NOTE | 2017-08-30 14:59 | PN ---
DATE: 08/30/2017 INFECTIOUS DISEASE PROGRESS NOTE SUBJECTIVE: The patient is awake, complaining of lower extremity pain. She is in no distress. Afe brile. LABORATORY DATA: WBC 0.8, platelets 15, BUN 41, creatinine 3.21. MICROBIOLOGY: Urine and blood cultures negative. ANTIMICROBIALS: The patient is on: 1. Fluconazole. 2. Vancomycin. 3. Cefepime. PHYSICAL EXAMINATION: GENERAL: This is a well-developed, elderly woman who is awake, in no distress. HEENT: Head atraumatic, normocephalic. Sclerae anicteric. Buccal mucosa dry. NECK: Supple. CHEST: Rise symmetrical. Breath sounds diminished to bases. HEART: S1, S2. ABDOMEN: Soft, bowel tones present. EXTREMITIES: Without cyanosis. Left lower extremity still with swelling and erythema, painful to t ouch. ASSESSMENT: 1. Left lower extremity cellulitis. 2. Pancytopenia. 3. Neutropenia. 4. Acute possibly on chronic kidney disease. 5. Hypertension. 6. Diabetes. PLAN: The patient is hemodynamically stable. She is being seen by vascular surgery and general [facility]. She is covered with broad spectrum antibiotics. She is also on Neupogen as per oncology beatrice mmendations. We will continue her on current regimen, follow recommendations of consultants. The p atient is also being seen per nephrology. Dictated By: CODY VASQUEZ BAR WELDER for [facility] Conf#: [id number] DID#: [id number]
[2017-08-30 15:21] VITALS: BP 152/71; RESP 18
[2017-08-30] MEDS: FILGRASTIM 480 MCG INJ SC SCH (17:42)
[2017-08-30 18:16] LABS: PTH CALCIUM 7.5 mg/dL (8.6-10.4)
[2017-08-30 19:26] VITALS: BP 148/67; RESP 18
[2017-08-30] MEDS ORDERED: morphine 2 MG INJ IV PRN (20:00)
[2017-08-30] MEDS: LIDOCAINE 2% VISC 15 ML CUP PO SCH ×2 (21:00→22:26)
--- NOTE | 2017-08-30 21:09 | RADRPT ---
PROCEDURE: CT of the left lower extremity without contrast CLINICAL INDICATION: Cellulitis TECHNIQUE: CT scan of the femur, knee, and tibia / fibula was performed . No IV contrast was admi nistered. Coronal and sagittal reformatted images were obtained from the axial source images. Image s were reviewed on a high-resolution PACS workstation. The calculated radiation dose measures 1718. 35 mGy centimeters. The CTDI measures 18.51 mGy. One or more of the following dose reduction techniques were used: - Automated exposure control. - Adjustment of the mA and/or kV according to patient size . - Use of iterative reconstruction technique. COMPARISON: None available FINDINGS: There is no cortical destruction or soft tissue gas to suggest osteomyelitis. There is mild degenerative change at the left hip noting mild nonuniform narrowing. Tricompartmental knee arthrosis seen with at least moderate narrowing of the medial femoral tibial compartment. Moderate arthrosis seen at the tibiotalar joint, partially assessed. There is a mild amount of subcutaneous stranding and small areas of skin blistering at the distal ti sabas / fibula. Subcutaneous stranding is also seen at the anterior dye soft tissues with mildly inter shabbir change appearance of the anterior thigh musculature. This is compatible with cellulitis versus n onspecific peripheral edema. No drainable fluid collections are identified. There is reactive left inguinal and external iliac lymphadenopathy. A Reina catheter is present. Atherosclerotic vascular calcifications are identified. There is severe muscle atrophy at the soleus and medial lateral gastrocnemius muscles. IMPRESSION: 1. Scattered foci of subcutaneous stranding most pronounced at the anterior thigh and overlying skin thickening, as well as the tibia / fibula distally with areas of skin blistering, which may represe nt cellulitis. 2. No evidence for a drainable fluid collection. 3. No CT findings to suggest osteomyelitis. RPTAT: QQ .Hiren Hidalgo MD, MD Date Time Electronically viewed and signed by .Hiren Hidalgo MD, MD on 08/30/2017 21:08 .d/
--- NOTE | 2017-08-30 21:10 | RADRPT ---
PROCEDURE: XR Tibia and Fibula. CLINICAL INDICATION: Cellulitis TECHNIQUE: Two views of the left tibia and fibula are available for review. COMPARISON: None available FINDINGS: The left tibia and fibula are intact. No acute fracture or dislocation is seen. Degenerative change s seen at the knee, partially assessed. No radiopaque foreign body is identified. There is soft tiss ue swelling. IMPRESSION: 1. No cortical destruction or soft tissue gas. 2. Soft tissue swelling. RPTAT: QQ .Hiren Hidalgo MD, MD Date Time Electronically viewed and signed by .Hiren Hidalgo MD, MD on 08/30/2017 21:09 .d/
--- NOTE | 2017-08-30 21:13 | PN ---
DATE: 08/30/2017 SUBJECTIVE: Patient's main complaint at this time is of mouth discomfort and dysphagia. The patien t is having difficulty swallowing even pureed foods. OBJECTIVE: GENERAL: The patient is a well-developed, well-nourished but uncomfortable-appearing female. VITAL SIGNS: Temperature 98.4, pulse 80, respirations 18, blood pressure 152/71, pulse oximetry 98% . SKIN: No ecchymosis, no petechiae or rashes. There are stasis changes located on the left pretibia l area. HEENT: Normocephalic. No evidence of trauma. Pupils equal, round, react to light and accommodatio n. Sclerae nonicteric. Oral mucosa is moist, but there is mucositis noted. NECK: Supple, no jugular venous distention or thyroid enlargement. CHEST: Clear to auscultation and percussion. No rhonchi, wheezes, rales or rubs. NODES: No palpable lymphadenopathy in any lymph node bearing area. ABDOMEN: Soft. No masses, no ascites. Bowel sounds are active. EXTREMITIES: Good range of motion. No clubbing or cyanosis. There is 2 to 3+ edema of the left lo wer extremity distal to the knee. There are stasis changes noted. There is marked erythema and war mth to the touch. No fluctuance is noted. NEUROLOGIC: No focal neurologic abnormalities. DIAGNOSTIC DATA: Sodium 136, potassium 3.5, creatinine 3.21, BUN 41. White count 800 with an absol mode neutrophil count of less than 500, hemoglobin 6.9, hematocrit 20.7, platelet count is 15,000. Venous and arterial studies of the lower extremity suggest some disease in the lower extremities. A CT angiogram was recommended. ASSESSMENT: 1. Pancytopenia, probably secondary to methotrexate. 2. Renal failure, probably secondary to methotrexate. 3. Cellulitis of the left lower extremity, rule out osteomyelitis. 4. 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 DISCUSSION: This type of pancytopenia is unusual with low dose methotrexate, but this patient was n ot taking low dose methotrexate, she was taking 5 mg on a daily basis for approximately 2 years. It is unclear why the patient was taking methotrexate. She does not have joint changes consistent wit h rheumatoid arthritis. She has no history of inflammatory bowel disease. The patient is presently receiving folinic acid and filgrastim but without benefit. The patient does have significant mucositis, making it difficult for her to swallow. Will order vis cous lidocaine for the patient to swish and swallow. We will also obtain quantitative immunoglobulins. Immunofixation has already been ordered. As noted, I am somewhat concerned the patient may have osteomyelitis. We will obtain a plain x-ray of the left tibia and fibula. I would continue the present treatment with filgrastim and folinic acid. Also continue antibiotics as per Infectious Disease. Dictated By: NOAH ROSEN MD, SR/NTS Conf#: [id number] DID#: [id number]
[2017-08-30] MEDS: morphine 2 MG INJ IV PRN (22:29)
[2017-08-31 01:43] VITALS: BP 143/67; RESP 18
[2017-08-31] MEDS: ACCU-CHEK XX SCH (02:00)
[2017-08-31] MEDS: DEXTROSE 5% IV SCH ×4 (04:45→22:17)
[2017-08-31] MEDS: LEUCOVORIN CALCIUM IV SCH ×4 (04:45→22:17)
[2017-08-31 08:01] VITALS: BP 149/67; RESP 18
[2017-08-31] MEDS: INSULIN ASPART [NOVOLOG] 3 ML PEN SC SCH ×4 (08:08→20:39)
[2017-08-31] MEDS: LORATADINE 10 MG TAB PO SCH (08:16)
[2017-08-31] MEDS: SULFASALAZINE 500 MG TAB PO SCH (08:16)
[2017-08-31] MEDS: LOSARTAN 50 MG TAB PO SCH (08:17)
[2017-08-31] MEDS: LIDOCAINE 2% VISC 15 ML CUP PO SCH ×4 (08:17→20:36)
[2017-08-31] MEDS: AMLODIPINE 5 MG TAB PO SCH (08:17)
[2017-08-31] MEDS: BISOPROLOL 5 MG TAB PO SCH (08:17)
[2017-08-31] MEDS: CITRIC ACID/NA CITRATE 30 ML CUP PO SCH ×3 (08:22→20:36)
[2017-08-31] MEDS: DIPHENHYD/MYLANTA/LIDO (PO SYG) PO SCH ×3 (08:22→20:36)
[2017-08-31] MEDS: SODIUM BICARBONATE (IV ADD) 100 MEQ in DEXTROSE 5% 1,000 ML IV SCH (09:30)
[2017-08-31] MEDS: CEFEPIME 1GM/50 ML (PMX) 50 ML IVPB SCH (09:39)
[2017-08-31] MEDS: INSULIN GLARGINE [LANtus] 3 ML PEN SC SCH (12:18)
--- NOTE | 2017-08-31 12:21 | PN ---
Date/Time of Note Date/Time of Note DATE: 08/31/17 TIME: 12:21 Assessment/Plan VTE Prophylaxis VTE Prophylaxis Intervention: contraindicated, SCD's Lines/Catheters IV Catheter Type (from Nrsg): Peripheral IV Urinary Cath still in place: Yes Reason Cath still needed: skin wounds contaminated by urine Assessment/Plan Assessment/Plan 1. Pancytopenia - Hematology on board and recommendations appreciated - Hgb stable this am but platelets this am were 5. Transfused 1 unit of platelets and will continue to monitor. Transfuse if remains <10K - s/p blood transfusions and plt transfusions. - Still unknown why patient was on methotrexate, ?IBD?rheumatology, called patient's daughter yesterday, however did not know why patient is taking those medications, Daughter stated she will try to get the name of the family doctor. 2. Mucositis 2/2 methotrexate use - lidocaine viscous has not been effective and diphen/lido/mal oral solution ordered. Morphine if pain remain intolerable for PO intake - Pureed diet 3. Left lower extremity cellulitis - ID and Surgery on board. Recommendations appreciated - Will continue current management - CT LE showed cellulitis and no evidence of osteomyelitis. Xray LE also performed and no osteomyelitis appreciated. 4. Vascular insufficiency - Vascular surgery on board and recommendations appreciated. No current vascular intervention as the patient has not developed any gangrene or ulcers 5. Neutropenia - remains low but trending upward. On Neupogen - Heme on board and recommendations appreciated 6. BK vs BK on CKD - Nephrology on board and recommendations appreciated. Given iv bicarb total 1 L for NAG yesterday - Cr improving - Monitor UOP - HIV negative, KASSY negative 7. Hypokalemia - replaced 8. Disposition - Will continue monitoring on Med/Surg Subjective 24 Hr Interval Summary Free Text/Dictation Patient still c/o generalized weakness and difficulty eating secondary to mucositis. Patient was refusing medications yesterday and spitting out some of her medications last night. Exam/Review of Systems Vital Signs Vitals Vital Signs Date Time Temp Pulse Resp B/P Pulse Ox O2 Delivery O2 Flow Rate FiO2 08/31/17 08:01 98.1 68 18 149/67 99 Intake and Output 08/30/17 08/30/17 08/31/17 15:00 23:00 07:00 Intake Total 1340 ml 600 ml Output Total 700 ml 400 ml Balance 640 ml 200 ml Exam Gen : Flat affect, dried blood on lower lip, no acute bleeding appreciated HEENT: NC/AT, EOM intact, PERRL Neck: Supple, full ROM Respiratory: CTAB, no wheezes or crackles Cardiovascular: nl pulses, regular rate and rhythm. no murmurs Gastrointestinal: Soft, NT, no rebound or guarding. non distended Extremities: LLE erythema, warmth, and tenderness. Dry skin with chronic hyperpigmentation Results Result Diagram: 08/31/1753908/31/17539 Results 24 hrs Laboratory Tests Test 08/30/17 17:44 08/30/17 22:24 08/31/17 05:40 08/31/17 06:52 Bedside Glucose 130 119 White Blood Count 1.5 #L Red Blood Count 2.64 L Hemoglobin 8.1 L Hematocrit 23.8 L Mean Corpuscular Volume 90.2 Mean Corpuscular Hemoglobin 30.7 Mean Corpuscular Hemoglobin Concent 34.0 Red Cell Distribution Width 15.5 H Platelet Count 5 #*L Mean Platelet Volume Neutrophils % Segmented Neutrophils % (Manual) 4 L Lymphocytes % Lymphocytes % (Manual) 46 Reactive Lymphocytes % (Manual) 2 H Monocytes % Monocytes % (Manual) 6 Eosinophils % Eosinophils % (Manual) 42 H Basophils % Nucleated Red Blood Cells % 2 H Neutrophils # Absolute Lymphocytes (Manual) 0.6 L Lymphocytes # Reactive Lymphocytes # 0.0 Monocytes # Absolute Monocytes (Manual) 0.0 L Eosinophils # Basophils # Nucleated Red Blood Cells # Platelet Estimate DECREASED Giant Platelets 1 H Polychromasia 3+ Poikilocytosis 2+ Anisocytosis 1+ Sodium Level 137 Potassium Level 3.1 L Chloride Level 114 H Carbon Dioxide Level 13 L Anion Gap 13 Blood Urea Nitrogen 37 H Creatinine 2.96 H Glucose Level 90 # Calcium Level 7.8 L Magnesium Level 1.6 L Total Bilirubin Direct Bilirubin Indirect Bilirubin Aspartate Amino Transf (AST/SGOT) 33 Alanine Aminotransferase (ALT/SGPT) 37 Alkaline Phosphatase 167 H Total Protein 5.7 L Albumin 2.3 L Globulin 3.40 H Albumin/Globulin Ratio 0.67 Immunoglobulin A 150 Immunoglobulin G 1115 Immunoglobulin M 33 L Complement C3 142 Complement C4 49 H HIV (1&2) Antibody NEGATIVE Lab Scanned Report BLOOD TRANSFUSION Test 08/31/17 08:07 08/31/17 11:50 Bedside Glucose 90 135 Medications Medications Current Medications Ondansetron HCl (Zofran Inj) 4 mg Q6H PRN IV NAUSEA AND/OR VOMITING Last administered on 08/29/17 08:36; Admin Dose 4 MG; Start 08/25/17 at 08:00 Morphine Sulfate (morphine) 2 mg Q4H PRN IV 5-10 PAIN Last administered on 08/30/17 22:29; Admin Dose 2 MG; Start 08/25/17 at 08:00 Amlodipine Besylate (Norvasc) 5 mg DAILY PO Last administered on 08/31/17 08: 17; Admin Dose 5 MG; Start 08/25/17 at 09:00 Bisoprolol Fumarate (Zebeta) 10 mg DAILY PO Last administered on 08/31/17 08: 17; Admin Dose 10 MG; Start 08/25/17 at 09:00 Loratadine (Claritin) 10 mg DAILY PO Last administered on 08/31/17 08:16; Admin Dose 10 MG; Start 08/25/17 at 09:00 Losartan Potassium (Cozaar) 50 mg DAILY PO Last administered on 08/31/17 08: 17; Admin Dose 50 MG; Start 08/25/17 at 09:00 Sulfasalazine (Azulfidine) 500 mg BID PO Last administered on 08/31/17 08:16 ; Admin Dose 500 MG; Start 08/25/17 at 09:00 Diagnostic Test (Pha) 1 ea 1 ea 02 XX ; Start 08/26/17 at 02:00 Cefepime HCl (Maxipime 1gm/50 ml (Pmx)) 50 ml @ 100 mls/hr Q24H IVPB Last administered on 08/31/17 09:39; Admin Dose 100 MLS/HR; Start 08/25/17 at 10: 00 Miscellaneous Information 1 ea NOTE XX ; Start 08/25/17 at 14:00 Glucose (Glutose) 15 gm Q15M PRN PO DECREASED GLUCOSE; Start 08/25/17 at 14:00 Glucose (Glutose) 22.5 gm Q15M PRN PO DECREASED GLUCOSE; Start 08/25/17 at 14: 00 Dextrose (D50w Syringe) 25 ml Q15M PRN IV DECREASED GLUCOSE Last administered on 08/27/17 18:20; Admin Dose 25 ML; Start 08/25/17 at 14:00 Dextrose (D50w Syringe) 50 ml Q15M PRN IV DECREASED GLUCOSE; Start 08/25/17 at 14:00 Glucagon (Glucagen) 1 mg Q15M PRN IM DECREASED GLUCOSE; Start 08/25/17 at 14: 00 Glucose (Glutose) 15 gm Q15M PRN BUCCAL DECREASED GLUCOSE; Start 08/25/17 at 14:00 Acetaminophen 650 mg 650 mg Q4H PRN PO PAIN AND OR ELEVATED TEMP Last administered on 08/26/17 17:06; Admin Dose 650 MG; Start 08/25/17 at 20:30 Vancomycin HCl (Vancocin) 250 ml @ 125 mls/hr Q72H IVPB Last administered on 08/29/17 11:10; Admin Dose 125 MLS/HR; Start 08/26/17 at 10:00 Filgrastim 480 mcg 480 mcg DAILY@17 SC Last administered on 08/30/17 17:42; Admin Dose 480 MCG; Start 08/27/17 at 17:00 Fluconazole (Diflucan 200 Mg/ NS (Pmx)) 100 ml @ 100 mls/hr Q24H IVPB Last administered on 08/30/17 12:30; Admin Dose 100 MLS/HR; Start 08/27/17 at 13: 00 Insulin Glargine (Lantus) 9 unit DAILY@10 SC Last administered on 08/31/17 12 :18; Admin Dose 9 UNIT; Start 08/28/17 at 10:00 Miscellaneous Medication (Bax Susp) 10 ml TID PO Last administered on 08:22; Admin Dose 10 ML; Start 08/29/17 at 13:00 Citric Acid/ Sodium Citrate 30 ml 30 ml TID PO Last administered on 08/31/17 08:22; Admin Dose 30 ML; Start 08/29/17 at 21:00 Sodium Bicarbonate/ Dextrose (Na Bicarb/D5W) 1,100 ml @ 50 mls/hr Q22H IV Last administered on 08/30/17 11:50; Admin Dose 50 MLS/HR; Start 08/30/17 at 11:30 Lidocaine 15 ml 15 ml QID PO Last administered on 08/31/17 08:17; Admin Dose 15 ML; Start 08/30/17 at 21:00; Stop 09/06/17 at 21:00 Leucovorin Calcium/Dextrose (Leucovorin Calcium Inj/D5W) 50 ml @ 200 mls/hr Q6H IV Last administered on 08/31/17t 09:44; Admin Dose 200 MLS/HR; Start at 22:00 Morphine Sulfate 1 mg 1 mg Q4H PRN IV LESS THAN 5/10 PAIN; Start 08/30/17 at 20:00 Potassium Chloride (KCl 40 MEQ/250 ML NS) 250 ml @ 62.5 mls/hr Q4H IVPB ; Start 08/31/17 at 12:00; Stop 08/31/17 at 19:59 JOANA BARKLEY MD Aug 31, 2017 12:21
[2017-08-31] MEDS: FLUCONAZOLE 200 MG/NS (PMX) 100 ML IVPB SCH (13:06)
--- NOTE | 2017-08-31 14:04 | CONS ---
Date/Time of Note Date/Time of Note DATE: 08/31/17 TIME: 14:02 Consult Date/Type/Reason Admit Date/Time Aug 24, 2017 at 19:05 Initial Consult Date 08/29/17 Type of Consultation: ID Ordering Provider: GIA DUMONT Objective Vital Signs Date Time Temp Pulse Resp B/P Pulse Ox O2 Delivery O2 Flow Rate FiO2 08/31/17 08:01 98.1 68 18 149/67 99 Intake and Output 08/30/17 08/30/17 08/31/17 15:00 23:00 07:00 Intake Total 1340 ml 600 ml Output Total 700 ml 400 ml Balance 640 ml 200 ml Results/Medications Result Diagram: 08/31/17 0540 08/31/17 0540 Results 24 hrs Laboratory Tests Test 08/30/17 17:44 08/30/17 22:24 08/31/17 05:40 08/31/17 06:52 Bedside Glucose 130 119 White Blood Count 1.5 #L Red Blood Count 2.64 L Hemoglobin 8.1 L Hematocrit 23.8 L Mean Corpuscular Volume 90.2 Mean Corpuscular Hemoglobin 30.7 Mean Corpuscular Hemoglobin Concent 34.0 Red Cell Distribution Width 15.5 H Platelet Count 5 #*L Mean Platelet Volume Neutrophils % Segmented Neutrophils % (Manual) 4 L Lymphocytes % Lymphocytes % (Manual) 46 Reactive Lymphocytes % (Manual) 2 H Monocytes % Monocytes % (Manual) 6 Eosinophils % Eosinophils % (Manual) 42 H Basophils % Nucleated Red Blood Cells % 2 H Neutrophils # Absolute Lymphocytes (Manual) 0.6 L Lymphocytes # Reactive Lymphocytes # 0.0 Monocytes # Absolute Monocytes (Manual) 0.0 L Eosinophils # Basophils # Nucleated Red Blood Cells # Platelet Estimate DECREASED Giant Platelets 1 H Polychromasia 3+ Poikilocytosis 2+ Anisocytosis 1+ Sodium Level 137 Potassium Level 3.1 L Chloride Level 114 H Carbon Dioxide Level 13 L Anion Gap 13 Blood Urea Nitrogen 37 H Creatinine 2.96 H Glucose Level 90 # Calcium Level 7.8 L Magnesium Level 1.6 L Total Bilirubin Direct Bilirubin Indirect Bilirubin Aspartate Amino Transf (AST/SGOT) 33 Alanine Aminotransferase (ALT/SGPT) 37 Alkaline Phosphatase 167 H Total Protein 5.7 L Albumin 2.3 L Globulin 3.40 H Albumin/Globulin Ratio 0.67 Immunoglobulin A 150 Immunoglobulin G 1115 Immunoglobulin M 33 L Complement C3 142 Complement C4 49 H HIV (1&2) Antibody NEGATIVE Lab Scanned Report BLOOD TRANSFUSION Test 08/31/17 08:07 08/31/17 11:50 Bedside Glucose 90 135 Medications Current Medications Ondansetron HCl (Zofran Inj) 4 mg Q6H PRN IV NAUSEA AND/OR VOMITING Last administered on 08/29/17 08:36; Admin Dose 4 MG; Start 08/25/17 at 08:00 Morphine Sulfate (morphine) 2 mg Q4H PRN IV PAIN Last administered on 08/30/17 22:29; Admin Dose 2 MG; Start 08/25/17 at 08:00 Amlodipine Besylate (Norvasc) 5 mg DAILY PO Last administered on 08/31/17 08: 17; Admin Dose 5 MG; Start 08/25/17 at 09:00 Bisoprolol Fumarate (Zebeta) 10 mg DAILY PO Last administered on 08/31/17 08: 17; Admin Dose 10 MG; Start 08/25/17 at 09:00 Loratadine (Claritin) 10 mg DAILY PO Last administered on 08/31/17 08:16; Admin Dose 10 MG; Start 08/25/17 at 09:00 Losartan Potassium (Cozaar) 50 mg DAILY PO Last administered on 08/31/17 08: 17; Admin Dose 50 MG; Start 08/25/17 at 09:00 Sulfasalazine (Azulfidine) 500 mg BID PO Last administered on 08/31/17 08:16 ; Admin Dose 500 MG; Start 08/25/17 at 09:00 Diagnostic Test (Pha) 1 ea 1 ea 02 XX ; Start 08/26/17 at 02:00 Cefepime HCl (Maxipime 1gm/50 ml (Pmx)) 50 ml @ 100 mls/hr Q24H IVPB Last administered on 08/31/17 09:39; Admin Dose 100 MLS/HR; Start 08/25/17 at 10: 00 Miscellaneous Information 1 ea NOTE XX ; Start 08/25/17 at 14:00 Glucose (Glutose) 15 gm Q15M PRN PO DECREASED GLUCOSE; Start 08/25/17 at 14:00 Glucose (Glutose) 22.5 gm Q15M PRN PO DECREASED GLUCOSE; Start 08/25/17 at 14: 00 Dextrose (D50w Syringe) 25 ml Q15M PRN IV DECREASED GLUCOSE Last administered on 08/27/17 18:20; Admin Dose 25 ML; Start 08/25/17 at 14:00 Dextrose (D50w Syringe) 50 ml Q15M PRN IV DECREASED GLUCOSE; Start 08/25/17 at 14:00 Glucagon (Glucagen) 1 mg Q15M PRN IM DECREASED GLUCOSE; Start 08/25/17 at 14: 00 Glucose (Glutose) 15 gm Q15M PRN BUCCAL DECREASED GLUCOSE; Start 08/25/17 at 14:00 Acetaminophen (Tylenol Tab) 650 mg Q4H PRN PO PAIN AND OR ELEVATED TEMP Last administered on 08/26/17 17:06; Admin Dose 650 MG; Start 08/25/17 at 20:30 Filgrastim 480 mcg 480 mcg DAILY@17 SC Last administered on 08/30/17 17:42; Admin Dose 480 MCG; Start 08/27/17 at 17:00 Fluconazole (Diflucan 200 Mg/ NS (Pmx)) 100 ml @ 100 mls/hr Q24H IVPB Last administered on 08/31/17 13:06; Admin Dose 100 MLS/HR; Start 08/27/17 at 13: 00 Insulin Glargine (Lantus) 9 unit DAILY@10 SC Last administered on 08/31/17 12 :18; Admin Dose 9 UNIT; Start 08/28/17 at 10:00 Miscellaneous Medication (Bax Susp) 10 ml TID PO Last administered on 08:22; Admin Dose 10 ML; Start 08/29/17 at 13:00 Citric Acid/ Sodium Citrate 30 ml 30 ml TID PO Last administered on 08/31/17 08:22; Admin Dose 30 ML; Start 08/29/17 at 21:00 Sodium Bicarbonate/ Dextrose (Na Bicarb/D5W) 1,100 ml @ 50 mls/hr Q22H IV Last administered on 08/30/17 11:50; Admin Dose 50 MLS/HR; Start 08/30/17 at 11:30 Lidocaine 15 ml 15 ml QID PO Last administered on 08/31/17 08:17; Admin Dose 15 ML; Start 08/30/17 at 21:00; Stop 09/06/17 at 21:00 Leucovorin Calcium/Dextrose (Leucovorin Calcium Inj/D5W) 50 ml @ 200 mls/hr Q6H IV Last administered on 08/31/17t 09:44; Admin Dose 200 MLS/HR; Start at 22:00 Morphine Sulfate 1 mg 1 mg Q4H PRN IV LESS THAN 5/10 PAIN; Start 08/30/17 at 20:00 Potassium Chloride 250 ml @ 62.5 mls/hr Q4H IVPB ; Start 08/31/17 at 12:00; Stop 08/31/17 at 19:59 Vancomycin HCl (Vancocin) 250 ml @ 125 mls/hr Q72H IVPB ; Start 09/01/17 at 11 :00 Miscellaneous Information (*Rx Drug Level Order Reminder*) 1 ONCE ONCE XX ; Start 09/01/17 at 10:00; Stop 09/01/17 at 10:01 Assessment/Plan Chief Complaint/Hosp Course SUBJECTIVE: The patient is sleeping, no fevers over night MICROBIOLOGY: Urine and blood cultures negative. ANTIMICROBIALS: 1. Fluconazole. 2. Vancomycin. 3. Cefepime. PHYSICAL EXAMINATION: GENERAL: This is a well-developed, elderly woman who is in no distress. HEENT: Head atraumatic, normocephalic. Sclerae anicteric. Buccal mucosa dry. NECK: Supple. CHEST: Rise symmetrical. Breath sounds diminished to bases. HEART: S1, S2. ABDOMEN: Soft, bowel tones present. EXTREMITIES: Without cyanosis. Left lower extremity with swelling and erythema , painful to touch. ASSESSMENT: 1. Left lower extremity cellulitis. 2. Pancytopenia. 3. Neutropenia. 4. Acute possibly on chronic kidney disease. 5. Hypertension. 6. Diabetes. PLAN: The patient remains unchanged, no evidence of OM per LE Xray, continue abx, LLE elevation, f/u hematology/podiatry/renal rec-s [facility] staff Problems: CODY VASQUEZ NP Aug 31, 2017 14:04
[2017-08-31 14:49] VITALS: BP 157/68; RESP 16
--- NOTE | 2017-08-31 16:36 | CONS ---
Date/Time of Note Date/Time of Note DATE: 08/31/17 TIME: 16:33 Assessment/Plan Assessment/Plan Chief Complaint/Hosp Course 61 y/o with 1. acute on-chronic kidney disease with no known baseline could be due to underlying sepsis/meds vs drug induced 2 Underlying acute tubular necrosis, possibly sepsis-induced due to cellulitis of the left lower extremity. 3 Likely underlying diabetic nephropathy, underlying hypertensive nephrosclerosis 4 pancytopenia could be due to sepsis, as well as drug-induced mthx/sulpha 5. Hyponatremia. 6. Non gap Metabolic acidosis likely secondary to renal failure 7 Nephrotic range proteinuria 8 BLE atherosclerosis Plan - Will give iv bicarb total 1 L for NAG, pt receving it intermittenlty due to iv abx( has no PICC line) - Cr improving - Monitor UOP - IV abx per I.D renally dose all meds - Consider holding sulphasalazine - Spoke to priamry team about possibility of DRESS syndrome - Consider Derm eval for biopsy of skin lesion - plt transfusion today - replace Mg - Proteinuria wup negative so far - c/w Losartan Problems: Consultation Date/Type/Reason Admit Date/Time Aug 24, 2017 at 19:05 Initial Consult Date 08/29/17 Type of Consultation: Renal Referring Provider: GIA DUMONT 24 HR Interval Summary Free Text/Dictation Dysphagia Plt count is 5 , no bleeding Exam/Review of Systems Vital Signs Vitals Vital Signs Date Time Temp Pulse Resp B/P Pulse Ox O2 Delivery O2 Flow Rate FiO2 08/31/17 14:49 97.7 68 16 157/68 100 Intake and Output 08/30/17 08/30/17 08/31/17 15:00 23:00 07:00 Intake Total 1340 ml 600 ml Output Total 700 ml 400 ml Balance 640 ml 200 ml Exam Gen : Flat affect, pt bleeding noted from lips HEENT: Unremarkable Neck: Supple, full ROM Respiratory: CTAB Cardiovascular: nl pulses, regular rate and rhythm Gastrointestinal: Soft, NT Extremities: Warml LLEXT edema/erythema/chronic hyperpigmentation changes distal pre-tibial Results Result Diagram: 08/31/17 0540 08/31/17 0540 Results 24 hrs Laboratory Tests Test 08/30/17 17:44 08/30/17 22:24 08/31/17 05:40 08/31/17 06:52 Bedside Glucose 130 119 White Blood Count 1.5 #L Red Blood Count 2.64 L Hemoglobin 8.1 L Hematocrit 23.8 L Mean Corpuscular Volume 90.2 Mean Corpuscular Hemoglobin 30.7 Mean Corpuscular Hemoglobin Concent 34.0 Red Cell Distribution Width 15.5 H Platelet Count 5 #*L Mean Platelet Volume Neutrophils % Segmented Neutrophils % (Manual) 4 L Lymphocytes % Lymphocytes % (Manual) 46 Reactive Lymphocytes % (Manual) 2 H Monocytes % Monocytes % (Manual) 6 Eosinophils % Eosinophils % (Manual) 42 H Basophils % Nucleated Red Blood Cells % 2 H Neutrophils # Absolute Lymphocytes (Manual) 0.6 L Lymphocytes # Reactive Lymphocytes # 0.0 Monocytes # Absolute Monocytes (Manual) 0.0 L Eosinophils # Basophils # Nucleated Red Blood Cells # Platelet Estimate DECREASED Giant Platelets 1 H Polychromasia 3+ Poikilocytosis 2+ Anisocytosis 1+ Sodium Level 137 Potassium Level 3.1 L Chloride Level 114 H Carbon Dioxide Level 13 L Anion Gap 13 Blood Urea Nitrogen 37 H Creatinine 2.96 H Glucose Level 90 # Calcium Level 7.8 L Magnesium Level 1.6 L Total Bilirubin Direct Bilirubin Indirect Bilirubin Aspartate Amino Transf (AST/SGOT) 33 Alanine Aminotransferase (ALT/SGPT) 37 Alkaline Phosphatase 167 H Total Protein 5.7 L Albumin 2.3 L Globulin 3.40 H Albumin/Globulin Ratio 0.67 Immunoglobulin A 150 Immunoglobulin G 1115 Immunoglobulin M 33 L Complement C3 142 Complement C4 49 H HIV (1&2) Antibody NEGATIVE Lab Scanned Report BLOOD TRANSFUSION Test 08/31/17 08:07 08/31/17 11:50 Bedside Glucose 90 135 Medications Medications Current Medications Ondansetron HCl (Zofran Inj) 4 mg Q6H PRN IV NAUSEA AND/OR VOMITING Last administered on 08/29/17 08:36; Admin Dose 4 MG; Start 08/25/17 at 08:00 Morphine Sulfate (morphine) 2 mg Q4H PRN IV PAIN Last administered on 08/30/17 22:29; Admin Dose 2 MG; Start 08/25/17 at 08:00 Amlodipine Besylate (Norvasc) 5 mg DAILY PO Last administered on 08/31/17 08: 17; Admin Dose 5 MG; Start 08/25/17 at 09:00 Bisoprolol Fumarate (Zebeta) 10 mg DAILY PO Last administered on 08/31/17 08: 17; Admin Dose 10 MG; Start 08/25/17 at 09:00 Loratadine (Claritin) 10 mg DAILY PO Last administered on 08/31/17 08:16; Admin Dose 10 MG; Start 08/25/17 at 09:00 Losartan Potassium (Cozaar) 50 mg DAILY PO Last administered on 08/31/17 08: 17; Admin Dose 50 MG; Start 08/25/17 at 09:00 Diagnostic Test (Pha) 1 ea 1 ea 02 XX ; Start 08/26/17 at 02:00 Cefepime HCl (Maxipime 1gm/50 ml (Pmx)) 50 ml @ 100 mls/hr Q24H IVPB Last administered on 08/31/17 09:39; Admin Dose 100 MLS/HR; Start 08/25/17 at 10: 00 Miscellaneous Information 1 ea NOTE XX ; Start 08/25/17 at 14:00 Glucose (Glutose) 15 gm Q15M PRN PO DECREASED GLUCOSE; Start 08/25/17 at 14:00 Glucose (Glutose) 22.5 gm Q15M PRN PO DECREASED GLUCOSE; Start 08/25/17 at 14: 00 Dextrose (D50w Syringe) 25 ml Q15M PRN IV DECREASED GLUCOSE Last administered on 08/27/17 18:20; Admin Dose 25 ML; Start 08/25/17 at 14:00 Dextrose (D50w Syringe) 50 ml Q15M PRN IV DECREASED GLUCOSE; Start 08/25/17 at 14:00 Glucagon (Glucagen) 1 mg Q15M PRN IM DECREASED GLUCOSE; Start 08/25/17 at 14: 00 Glucose (Glutose) 15 gm Q15M PRN BUCCAL DECREASED GLUCOSE; Start 08/25/17 at 14:00 Acetaminophen (Tylenol Tab) 650 mg Q4H PRN PO PAIN AND OR ELEVATED TEMP Last administered on 08/26/17 17:06; Admin Dose 650 MG; Start 08/25/17 at 20:30 Filgrastim 480 mcg 480 mcg DAILY@17 SC Last administered on 08/30/17 17:42; Admin Dose 480 MCG; Start 08/27/17 at 17:00 Fluconazole (Diflucan 200 Mg/ NS (Pmx)) 100 ml @ 100 mls/hr Q24H IVPB Last administered on 08/31/17 13:06; Admin Dose 100 MLS/HR; Start 08/27/17 at 13: 00 Insulin Glargine (Lantus) 9 unit DAILY@10 SC Last administered on 08/31/17 12 :18; Admin Dose 9 UNIT; Start 08/28/17 at 10:00 Miscellaneous Medication (Bax Susp) 10 ml TID PO Last administered on 15:22; Admin Dose 10 ML; Start 08/29/17 at 13:00 Citric Acid/ Sodium Citrate 30 ml 30 ml TID PO Last administered on 08/31/17 08:22; Admin Dose 30 ML; Start 08/29/17 at 21:00 Sodium Bicarbonate/ Dextrose (Na Bicarb/D5W) 1,100 ml @ 50 mls/hr Q22H IV Last administered on 08/30/17 11:50; Admin Dose 50 MLS/HR; Start 08/30/17 at 11:30 Lidocaine 15 ml 15 ml QID PO Last administered on 08/31/17 15:21; Admin Dose 15 ML; Start 08/30/17 at 21:00; Stop 09/06/17 at 21:00 Leucovorin Calcium/Dextrose (Leucovorin Calcium Inj/D5W) 50 ml @ 200 mls/hr Q6H IV Last administered on 08/31/17 09:44; Admin Dose 200 MLS/HR; Start at 22:00 Morphine Sulfate 1 mg 1 mg Q4H PRN IV LESS THAN 5/10 PAIN; Start 08/30/17 at 20:00 Potassium Chloride 250 ml @ 62.5 mls/hr Q4H IVPB ; Start 08/31/17 at 12:00; Stop 08/31/17 at 19:59 Vancomycin HCl (Vancocin) 250 ml @ 125 mls/hr Q72H IVPB ; Start 09/01/17 at 11 :00 Miscellaneous Information (*Rx Drug Level Order Reminder*) 1 ONCE ONCE XX ; Start 09/01/17 at 10:00; Stop 09/01/17 at 10:01 ARDEN JACKMAN MD Aug 31, 2017 16:36
[2017-08-31] MEDS ORDERED: MAGNESIUM SULFATE 2 GM/50 ML 50 ML IVPB ONE (17:00)
[2017-08-31] MEDS: POTASSIUM CHLORIDE 250 ML IVPB SCH ×2 (17:48→22:18)
[2017-08-31] MEDS: FILGRASTIM 480 MCG INJ SC SCH (18:40)
[2017-08-31 20:25] VITALS: BP 153/76; RESP 22
--- NOTE | 2017-08-31 20:39 | PN ---
Date/Time of Note Date/Time of Note DATE: 08/31/17 TIME: 20:29 Assessment/Plan Lines/Catheters IV Catheter Type (from Nrs): Peripheral IV Reina in Place (from Nrs): Yes Assessment/Plan Chief Complaint/Hosp Course -Bilateral lower extremity atherosclerosis with left lower extremity diabetic foot infection. It seems that the patient has developed significant infection of the left lower extremity that is currently being treated by antibiotics. No current vascular intervention needed as the patient has not developed any gangrene or ulcers. -Appreciate General surgery evaluation -CT scan of the left lower extremity demonstrated edema. -Discussed findings, plan and management with the patient with a certified web applications architect and she understands. However, the patient is unable to explain why she is on methotrexate and what condition was being treated for her to be placed on that medication and how long she has been on it. -Optimize vascular status (BP meds, diet, nutrition, exercise, sugar control, antiplatelets). -Thank you for allowing us to partake in the care of your patient. Please call with any questions. Problems: Subjective 24 Hr Interval Summary no new vascular events overnight Exam/Review of Systems Vital Signs Vitals Vital Signs Date Time Temp Pulse Resp B/P Pulse Ox O2 Delivery O2 Flow Rate FiO2 08/31/17 20:25 97.9 79 22 153/76 97 Intake and Output 08/30/17 08/30/17 08/31/17 15:00 23:00 07:00 Intake Total 1340 ml 600 ml Output Total 700 ml 400 ml Balance 640 ml 200 ml Exam Free Text/Dictation GENERAL: Alert and oriented x3, although there is a language barrier, despite certified web applications architect. PULMONARY: Clear to auscultation bilaterally CARDIOVASCULAR: S1, S2 present ABDOMEN: Soft, nontender, nondistended. Bowel sounds positive. Truncal obesity. EXTREMITIES: Right lower extremity palpable femoral pulse, nonpalpable pedal pulse. Motor, sensory intact. Cap refill 3 seconds. Left lower extremity palpable femoral pulse, nonpalpable pedal pulse. Edema of 2 to 3+, erythema extending from the ankle up to the knee with some superficial skin loss improving , near the medial malleolar area. Tenderness upon palpation near the ankle area improved Results Result Diagram: 08/31/17 0540 08/31/17 0540 MOOK SPEARS MD Aug 31, 2017 20:39
--- NOTE | 2017-08-31 20:39 | PN ---
Date/Time of Note Date/Time of Note DATE: 08/31/17 TIME: 20:29 Assessment/Plan Lines/Catheters IV Catheter Type (from Nrs): Peripheral IV Reina in Place (from Nrs): Yes Assessment/Plan Chief Complaint/Hosp Course -Bilateral lower extremity atherosclerosis with left lower extremity diabetic foot infection. It seems that the patient has developed significant infection of the left lower extremity that is currently being treated by antibiotics. No current vascular intervention needed as the patient has not developed any gangrene or ulcers. -Appreciate General surgery evaluation -CT scan of the left lower extremity demonstrated edema. -Discussed findings, plan and management with the patient with a certified mechanical planner and she understands. However, the patient is unable to explain why she is on methotrexate and what condition was being treated for her to be placed on that medication and how long she has been on it. -Optimize vascular status (BP meds, diet, nutrition, exercise, sugar control, antiplatelets). -Thank you for allowing us to partake in the care of your patient. Please call with any questions. Problems: Subjective 24 Hr Interval Summary no new vascular events overnight Exam/Review of Systems Vital Signs Vitals Vital Signs Date Time Temp Pulse Resp B/P Pulse Ox O2 Delivery O2 Flow Rate FiO2 08/31/17 20:25 97.9 79 22 153/76 97 Intake and Output 08/30/17 08/30/17 08/31/17 15:00 23:00 07:00 Intake Total 1340 ml 600 ml Output Total 700 ml 400 ml Balance 640 ml 200 ml Exam Free Text/Dictation GENERAL: Alert and oriented x3, although there is a language barrier, despite certified mechanical planner. PULMONARY: Clear to auscultation bilaterally CARDIOVASCULAR: S1, S2 present ABDOMEN: Soft, nontender, nondistended. Bowel sounds positive. Truncal obesity. EXTREMITIES: Right lower extremity palpable femoral pulse, nonpalpable pedal pulse. Motor, sensory intact. Cap refill 3 seconds. Left lower extremity palpable femoral pulse, nonpalpable pedal pulse. Edema of 2 to 3+, erythema extending from the ankle up to the knee with some superficial skin loss improving , near the medial malleolar area. Tenderness upon palpation near the ankle area improved Results Result Diagram: 08/31/17 0540 08/31/17 0540 MOOK SPEARS MD Aug 31, 2017 20:39
--- NOTE | 2017-08-31 20:39 | PN ---
Date/Time of Note Date/Time of Note DATE: 08/31/17 TIME: 20:29 Assessment/Plan Lines/Catheters IV Catheter Type (from Nrs): Peripheral IV Reina in Place (from Nrs): Yes Assessment/Plan Chief Complaint/Hosp Course -Bilateral lower extremity atherosclerosis with left lower extremity diabetic foot infection. It seems that the patient has developed significant infection of the left lower extremity that is currently being treated by antibiotics. No current vascular intervention needed as the patient has not developed any gangrene or ulcers. -Appreciate General surgery evaluation -CT scan of the left lower extremity demonstrated edema. -Discussed findings, plan and management with the patient with a certified fiscal assistant and she understands. However, the patient is unable to explain why she is on methotrexate and what condition was being treated for her to be placed on that medication and how long she has been on it. -Optimize vascular status (BP meds, diet, nutrition, exercise, sugar control, antiplatelets). -Thank you for allowing us to partake in the care of your patient. Please call with any questions. Problems: Subjective 24 Hr Interval Summary no new vascular events overnight Exam/Review of Systems Vital Signs Vitals Vital Signs Date Time Temp Pulse Resp B/P Pulse Ox O2 Delivery O2 Flow Rate FiO2 08/31/17 20:25 97.9 79 22 153/76 97 Intake and Output 08/30/17 08/30/17 08/31/17 15:00 23:00 07:00 Intake Total 1340 ml 600 ml Output Total 700 ml 400 ml Balance 640 ml 200 ml Exam Free Text/Dictation GENERAL: Alert and oriented x3, although there is a language barrier, despite certified fiscal assistant. PULMONARY: Clear to auscultation bilaterally CARDIOVASCULAR: S1, S2 present ABDOMEN: Soft, nontender, nondistended. Bowel sounds positive. Truncal obesity. EXTREMITIES: Right lower extremity palpable femoral pulse, nonpalpable pedal pulse. Motor, sensory intact. Cap refill 3 seconds. Left lower extremity palpable femoral pulse, nonpalpable pedal pulse. Edema of 2 to 3+, erythema extending from the ankle up to the knee with some superficial skin loss improving , near the medial malleolar area. Tenderness upon palpation near the ankle area improved Results Result Diagram: 08/31/17 0540 08/31/17 0540 MOOK SPEARS MD Aug 31, 2017 20:39
--- NOTE | 2017-08-31 21:45 | PN ---
DATE: 08/31/2017 SUBJECTIVE: The patient states mouth discomfort is somewhat improved. No other changes. OBJECTIVE: GENERAL: Patient is a well-developed, uncomfortable-appearing female who is in no acute distress. VITAL SIGNS: Temperature 97.9, pulse 79 per minute and regular, respirations 22, blood pressure 153 /76, pulse oximetry is 97% on room air. SKIN: No ecchymosis, no petechiae or rashes. HEENT: Significant stomatitis continues. NECK: Supple, no jugular venous distention or thyroid enlargement. CHEST: Clear to auscultation and percussion. No rhonchi, wheezes, rales or rubs. NODES: No palpable lymphadenopathy in lymph node bearing area. HEART: Regular sinus rhythm, no S3, S4 or murmurs. No rubs. ABDOMEN: Soft, obese. No masses or ascites. Bowel sounds are active. EXTREMITIES: No clubbing, edema or cyanosis. There is still 2 to 3+ edema of the left lower extrem ity distal to the knee. There is erythema and warmth to the touch. NEUROLOGIC: Normal. DIAGNOSTIC DATA: White count today 1500 with 42% eosinophils. Hemoglobin 8.1, hematocrit 23.8, and platelet count is 5000. Sodium 137, potassium 3.1, creatinine 2.96, BUN is 37. Rheumatoid screening is negative. X-rays of the left tibia and fibula does show that there is soft tissue swelling, but no cortical de struction of bone is seen. There is no soft tissue gas noted. ASSESSMENT: 1. Pancytopenia secondary to methotrexate. 2. Renal failure secondary methotrexate. 3. Cellulitis of the left lower extremity. 4. Mucositis related to agranulocytosis. The patient may be demonstrating an early response to the use of filgrastim. There is a slight incr ease in white cells with a relative eosinophilia. We will continue the patient filgrastim at 480 mcg per day. The patient has received red blood cell and platelet transfusion today. The patient does seem somewhat more comfortable. We will continue the viscous lidocaine. Dictated By: NOAH ROSEN MD, SR/NTS Conf#: [id number] DID#: [id number]
--- NOTE | 2017-08-31 22:56 | PN ---
Date/Time of Note Date/Time of Note DATE: 08/31/17 TIME: 22:56 Assessment/Plan Lines/Catheters IV Catheter Type (from [facility]): Peripheral IV Reina in Place (from [facility]): Yes Assessment/Plan Chief Complaint/Hosp Course 1. Left lower extremity cellulitis and edema with history of diabetes; No weeping/open areas/fluctuant areas; minimally improved -IV antibiotics -Elevate above heart level -CT lower extremity, pending 2. Pancytopenia with history of unknown reason for methotrexate therapy -Hematology follow-up and optimization 3. Diabetes -Nutrition medication optimization -Encourage weight loss 4. Hypertension -Nutrition medication optimization -Encourage weight loss 5. Chronic kidney disease: cr improving -Judicious fluid management -Avoid nephrotoxic agents 6. Abnormal LFTs of unknown etiology may be secondary to fatty liver -Monitor 7. Hypoalbuminemia with hypocalcemia -Nutritional optimization Thank you. Patient seen and examined in collaboration with Dr. William Russ. Problems: Subjective 24 Hr Interval Summary Leg continues to be tender and swollen. No open areas. Continues to be pancytopenic. No fevers, chills, sob, congested cough, cp, palpitations, walsh, dizziness, n/v/d/dysuria. Exam/Review of Systems Vital Signs Vitals Vital Signs Date Time Temp Pulse Resp B/P Pulse Ox O2 Delivery O2 Flow Rate FiO2 09/12/17 01:07 87 18 95 Nasal Cannula 3.0 09/12/17 00:00 98.6 139/77 09/10/17 20:13 30 Intake and Output 09/11/17 09/11/17 09/12/17 15:00 23:00 07:00 Intake Total 50 ml 1300 ml Output Total 600 ml Balance 50 ml 700 ml Exam Free Text/Dictation Constitutional: obese, other (Awake), NAD No distress Psych: nl mood/affect, No anxiety Head: atraumatic, normocephalic Eyes: EOMI, PERRL, nl conjunctiva, No icteric ENMT: mucosa pink and moist, nl external ears & nose, nl lips & teeth Neck: non-tender, supple, No jvd Respiratory: normal air movement, No congested cough, No labored breathing, No wheezing Cardiovascular: edema (Left lower extremity- min improved), regular rate and rhythm Gastrointestinal: non-tender, soft, No rebound or guarding Musculoskeletal: joint tenderness (Left ankle), No nl extremities to inspection Extremities: edema, normal pulses, pitting pedal edema, tenderness, No calf tenderness Neurological: nl mental status, nl strength Skin: rash or lesions (Left lower extremity-discoloration), LLE no fluctuant areas; No diaphoresis, No nl turgor Lymph: nl lymph nodes, nontender Results Result Diagram: 09/11/17 0557 09/11/17 0557 EDMUND KINCAID NP Aug 31, 2017 22:56
--- NOTE | 2017-08-31 23:31 | CONS ---
Date/Time of Note Date/Time of Note DATE: 08/31/17 TIME: 23:12 Assessment/Plan Assessment/Plan Problems: (1) Acute renal failure Status: Acute Qualifiers: Qualified Code: N17.9 - Acute renal failure, unspecified acute renal failure type (2) Anemia Status: Acute Qualifiers: Qualified Code: D64.9 - Anemia, unspecified type (3) Cellulitis Status: Acute Qualifiers: Qualified Code: L03.116 - Cellulitis of left lower extremity (4) Pancytopenia Status: Acute (5) Severe sepsis Status: Acute Additional Assessment/Plan Continue IV antibiotics. My recommendation is to have heel protection on both feet while she is laying supine in bed. Patient will continue to have monitoring for the left lower extremity. Patient will be followed in-house. Thank you again for involving me in the care of this patient. If you have any questions regarding this case, please feel free to contact me at pager: [phone] or reach me at mobile: [phone]. Consultation Date/Type/Reason Admit Date/Time Aug 24, 2017 at 19:05 Date of Consultation: Aug 31, 2017 Type of Consultation: Foot and ankle surgery Reason for Consultation Evaluation and opinion regarding lower leg cellulitis. Hx of Present Illness Thank you very much for your kind consultation. As you very well know, this is a 61-year-old female from [facility] who presented to [facility] with left lower extremity discomfort, pain, redness and swelling. She was diagnosed with cellulitis and was admitted for evaluation. Patient has pancytopenia and has been currently placed on methotrexate back in [facility]; there is no clear reason given however. The patient is apparently unaware of her medical status. Patient is currently being followed by infectious disease, medicine, and hematology. I was consulted for evaluation of her lower extremity. Constitutional: no complaints, other (leg pain+) Eyes: no complaints ENT: no complaints Respiratory: no complaints Psychological: nl mood/affect, No anxiety Past Medical History As per history of present illness. Past Surgical History As per history of present illness. Past Surgical Hx: no surgical history Social History As per history of present illness. Alcohol Use: none Smoking Status: Never smoker Drug Use: none Exam/Review of Systems Vital Signs Vitals Vital Signs Date Time Temp Pulse Resp B/P Pulse Ox O2 Delivery O2 Flow Rate FiO2 08/31/17 20:25 97.9 79 22 153/76 97 Intake and Output 08/30/17 08/30/17 08/31/17 15:00 23:00 07:00 Intake Total 1340 ml 600 ml Output Total 700 ml 400 ml Balance 640 ml 200 ml Exam Patient is morbidly obese in no acute distress laying supine in bed. Bilateral lower extremity was examined which showed left lower leg cellulitis which appears to be improving with wrinkling sign. The demarcation is marked with a pen just distal to the tibial tuberosity. The leg is nontender to palpation and there is no active wound. Dorsalis pedis and posterior tibial pulses nonpalpable secondary to the edema present. Patient has dystrophic toenails on all 10 toes. No heel decubitus ulcerations noted. Labs reviewed. Results Result Diagram: 08/31/17 0540 08/31/17 0540 Results 24 hrs Laboratory Tests Test 08/31/17 05:40 08/31/17 06:52 08/31/17 08:07 08/31/17 11:50 White Blood Count 1.5 #L Red Blood Count 2.64 L Hemoglobin 8.1 L Hematocrit 23.8 L Mean Corpuscular Volume 90.2 Mean Corpuscular Hemoglobin 30.7 Mean Corpuscular Hemoglobin Concent 34.0 Red Cell Distribution Width 15.5 H Platelet Count 5 #*L Mean Platelet Volume Neutrophils % Segmented Neutrophils % (Manual) 4 L Lymphocytes % Lymphocytes % (Manual) 46 Reactive Lymphocytes % (Manual) 2 H Monocytes % Monocytes % (Manual) 6 Eosinophils % Eosinophils % (Manual) 42 H Basophils % Nucleated Red Blood Cells % 2 H Neutrophils # Absolute Lymphocytes (Manual) 0.6 L Lymphocytes # Reactive Lymphocytes # 0.0 Monocytes # Absolute Monocytes (Manual) 0.0 L Eosinophils # Basophils # Nucleated Red Blood Cells # Platelet Estimate DECREASED Giant Platelets 1 H Polychromasia 3+ Poikilocytosis 2+ Anisocytosis 1+ Sodium Level 137 Potassium Level 3.1 L Chloride Level 114 H Carbon Dioxide Level 13 L Anion Gap 13 Blood Urea Nitrogen 37 H Creatinine 2.96 H Glucose Level 90 # Calcium Level 7.8 L Magnesium Level 1.6 L Total Bilirubin Direct Bilirubin Indirect Bilirubin Aspartate Amino Transf (AST/SGOT) 33 Alanine Aminotransferase (ALT/SGPT) 37 Alkaline Phosphatase 167 H Total Protein 5.7 L Albumin 2.3 L Globulin 3.40 H Albumin/Globulin Ratio 0.67 Immunoglobulin A 150 Immunoglobulin G 1115 Immunoglobulin M 33 L Rheumatoid Factor Screen NEGATIVE Complement C3 142 Complement C4 49 H Rapid Plasma Reagin NONREACTIVE HIV (1&2) Antibody NEGATIVE Lab Scanned Report BLOOD TRANSFUSION Bedside Glucose 90 135 Test 08/31/17 17:32 08/31/17 20:38 Bedside Glucose 157 169 Medications Medications Current Medications Ondansetron HCl (Zofran Inj) 4 mg Q6H PRN IV NAUSEA AND/OR VOMITING Last administered on 08/29/17 08:36; Admin Dose 4 MG; Start 08/25/17 at 08:00 Morphine Sulfate (morphine) 2 mg Q4H PRN IV 5 PAIN Last administered on 08/30/17 22:29; Admin Dose 2 MG; Start 08/25/17 at 08:00 Amlodipine Besylate (Norvasc) 5 mg DAILY PO Last administered on 08/31/17 08: 17; Admin Dose 5 MG; Start 08/25/17 at 09:00 Bisoprolol Fumarate (Zebeta) 10 mg DAILY PO Last administered on 08/31/17 08: 17; Admin Dose 10 MG; Start 08/25/17 at 09:00 Loratadine (Claritin) 10 mg DAILY PO Last administered on 08/31/17 08:16; Admin Dose 10 MG; Start 08/25/17 at 09:00 Losartan Potassium (Cozaar) 50 mg DAILY PO Last administered on 08/31/17 08: 17; Admin Dose 50 MG; Start 08/25/17 at 09:00 Diagnostic Test (Pha) 1 ea 1 ea 02 XX ; Start 08/26/17 at 02:00 Cefepime HCl (Maxipime 1gm/50 ml (Pmx)) 50 ml @ 100 mls/hr Q24H IVPB Last administered on 08/31/17 09:39; Admin Dose 100 MLS/HR; Start 08/25/17 at 10: 00 Miscellaneous Information 1 ea NOTE XX ; Start 08/25/17 at 14:00 Glucose (Glutose) 15 gm Q15M PRN PO DECREASED GLUCOSE; Start 08/25/17 at 14:00 Glucose (Glutose) 22.5 gm Q15M PRN PO DECREASED GLUCOSE; Start 08/25/17 at 14: 00 Dextrose (D50w Syringe) 25 ml Q15M PRN IV DECREASED GLUCOSE Last administered on 08/27/17 18:20; Admin Dose 25 ML; Start 08/25/17 at 14:00 Dextrose (D50w Syringe) 50 ml Q15M PRN IV DECREASED GLUCOSE; Start 08/25/17 at 14:00 Glucagon (Glucagen) 1 mg Q15M PRN IM DECREASED GLUCOSE; Start 08/25/17 at 14: 00 Glucose (Glutose) 15 gm Q15M PRN BUCCAL DECREASED GLUCOSE; Start 08/25/17 at 14:00 Acetaminophen (Tylenol Tab) 650 mg Q4H PRN PO PAIN AND OR ELEVATED TEMP Last administered on 08/26/17 17:06; Admin Dose 650 MG; Start 08/25/17 at 20:30 Filgrastim 480 mcg 480 mcg DAILY@17 SC Last administered on 08/31/17 18:40; Admin Dose 480 MCG; Start 08/27/17 at 17:00 Fluconazole (Diflucan 200 Mg/ NS (Pmx)) 100 ml @ 100 mls/hr Q24H IVPB Last administered on 08/31/17 13:06; Admin Dose 100 MLS/HR; Start 08/27/17 at 13: 00 Insulin Glargine (Lantus) 9 unit DAILY@10 SC Last administered on 08/31/17 12 :18; Admin Dose 9 UNIT; Start 08/28/17 at 10:00 Miscellaneous Medication (Bax Susp) 10 ml TID PO Last administered on 20:36; Admin Dose 10 ML; Start 08/29/17 at 13:00 Citric Acid/ Sodium Citrate 30 ml 30 ml TID PO Last administered on 08/31/17 20:36; Admin Dose 30 ML; Start 08/29/17 at 21:00 Sodium Bicarbonate/ Dextrose (Na Bicarb/D5W) 1,100 ml @ 50 mls/hr Q22H IV Last administered on 08/30/17 11:50; Admin Dose 50 MLS/HR; Start 08/30/17 at 11:30 Lidocaine 15 ml 15 ml QID PO Last administered on 08/31/17 20:36; Admin Dose 15 ML; Start 08/30/17 at 21:00; Stop 09/06/17 at 21:00 Leucovorin Calcium/Dextrose (Leucovorin Calcium Inj/D5W) 50 ml @ 200 mls/hr Q6H IV Last administered on 08/31/17t 22:17; Admin Dose 200 MLS/HR; Start at 22:00 Morphine Sulfate 1 mg 1 mg Q4H PRN IV LESS THAN 5/10 PAIN; Start 08/30/17 at 20:00 Vancomycin HCl (Vancocin) 250 ml @ 125 mls/hr Q72H IVPB ; Start 09/01/17 at 11 :00 Miscellaneous Information (*Rx Drug Level Order Reminder*) 1 ONCE ONCE XX ; Start 09/01/17 at 10:00; Stop 09/01/17 at 10:01 OTIS CHAMBERLAIN DPM Aug 31, 2017 23:24
[2017-09-01] MEDS: ACCU-CHEK XX SCH (00:49)
[2017-09-01 02:00] VITALS: BP 157/67; RESP 20
[2017-09-01] MEDS: DEXTROSE 5% IV SCH ×4 (04:09→21:42)
[2017-09-01] MEDS: LEUCOVORIN CALCIUM IV SCH ×4 (04:09→21:42)
[2017-09-01] MEDS: SODIUM BICARBONATE (IV ADD) 100 MEQ in DEXTROSE 5% 1,000 ML IV SCH (06:11)
[2017-09-01 07:47] VITALS: BP 167/74; RESP 16
[2017-09-01] MEDS: INSULIN ASPART [NOVOLOG] 3 ML PEN SC SCH ×4 (08:08→21:00)
[2017-09-01] MEDS: LORATADINE 10 MG TAB PO SCH (09:15)
[2017-09-01] MEDS: LIDOCAINE 2% VISC 15 ML CUP PO SCH ×4 (09:15→21:00)
[2017-09-01] MEDS: LOSARTAN 50 MG TAB PO SCH (09:15)
[2017-09-01] MEDS: AMLODIPINE 5 MG TAB PO SCH (09:15)
[2017-09-01] MEDS: BISOPROLOL 5 MG TAB PO SCH (09:15)
[2017-09-01] MEDS: DIPHENHYD/MYLANTA/LIDO (PO SYG) PO SCH ×3 (09:16→21:00)
[2017-09-01] MEDS: CITRIC ACID/NA CITRATE 30 ML CUP PO SCH ×3 (09:16→21:00)
[2017-09-01] MEDS: CEFEPIME 1GM/50 ML (PMX) 50 ML IVPB SCH (09:20)
[2017-09-01] MEDS: INSULIN GLARGINE [LANtus] 3 ML PEN SC SCH (10:00)
[2017-09-01] MEDS ORDERED: VANCOMYCIN 1 GM in NS 250 ML IVPB SCH (11:00)
[2017-09-01] MEDS ORDERED: ALBUTEROL/IPRATROPIUM (NEB) 3 ML AMP HHN STA (11:57)
--- NOTE | 2017-09-01 11:57 | CONS ---
Date/Time of Note Date/Time of Note DATE: 09/01/17 TIME: 11:56 Assessment/Plan Assessment/Plan Chief Complaint/Hosp Course 61 y/o with 1. acute on-chronic kidney disease with no known baseline could be due to underlying sepsis/meds vs drug induced Cr improving 2.68 today 2 Underlying acute tubular necrosis, possibly sepsis-induced due to cellulitis of the left lower extremity. 3 Likely underlying diabetic nephropathy, underlying hypertensive nephrosclerosis 4 pancytopenia could be due to sepsis, as well as drug-induced mthx/sulpha 5. Hyponatremia. 6. Non gap Metabolic acidosis likely secondary to renal failure 7 Nephrotic range proteinuria 8 BLE atherosclerosis Plan - Will give iv bicarb total 1 L for NAG, pt receving it intermittenlty due to iv abx( has no PICC line) - Cr improving - Monitor UOP - IV abx per I.D renally dose all meds - Spoke to priamry team about possibility of DRESS syndrome - Consider Derm eval for biopsy of skin lesion - plt transfusion today - Proteinuria wup negative so far - c/w Losartan Problems: Consultation Date/Type/Reason Admit Date/Time Aug 24, 2017 at 19:05 Initial Consult Date 08/29/17 Type of Consultation: Renal Referring Provider: GIA DUMONT 24 HR Interval Summary Free Text/Dictation Feels the same +Oral ulcers Plt count 4 today Exam/Review of Systems Vital Signs Vitals Vital Signs Date Time Temp Pulse Resp B/P Pulse Ox O2 Delivery O2 Flow Rate FiO2 09/01/17 07:47 98.2 82 16 167/74 98 Intake and Output 08/31/17 08/31/17 09/01/17 15:00 23:00 07:00 Intake Total 2000 ml 640 ml Output Total 650 ml 950 ml Balance 1350 ml -310 ml Exam en : Flat affect, pt bleeding noted from lips HEENT: Unremarkable Neck: Supple, full ROM Respiratory: CTAB Cardiovascular: nl pulses, regular rate and rhythm Gastrointestinal: Soft, NT Extremities: Warml LLEXT edema/erythema/chronic hyperpigmentation changes distal pre-tibial Results Result Diagram: 09/01/17 0540 09/01/17 0540 Results 24 hrs Laboratory Tests Test 08/31/17 17:32 08/31/17 20:38 09/01/17 05:40 09/01/17 08:01 Bedside Glucose 157 169 116 White Blood Count 2.8 #L Red Blood Count 2.67 L Hemoglobin 8.1 L Hematocrit 23.8 L Mean Corpuscular Volume 89.1 Mean Corpuscular Hemoglobin 30.3 Mean Corpuscular Hemoglobin Concent 34.0 Red Cell Distribution Width 14.9 H Platelet Count 4 *L Mean Platelet Volume Neutrophils % Segmented Neutrophils % (Manual) 28 L Band Neutrophils % (Manual) 6 H Lymphocytes % Lymphocytes % (Manual) 30 Reactive Lymphocytes % (Manual) 1 H Monocytes % Monocytes % (Manual) 11 Eosinophils % Eosinophils % (Manual) 24 H Basophils % Nucleated Red Blood Cells % 0.7 H Neutrophils # Neutrophils # (Manual) 0.8 L Band Neutrophils # 0.1 Absolute Lymphocytes (Manual) 0.8 Lymphocytes # Reactive Lymphocytes # 0.0 Monocytes # Absolute Monocytes (Manual) 0.3 Eosinophils # Basophils # Nucleated Red Blood Cells # Platelet Estimate SIG DECREASED Giant Platelets 2 H Poikilocytosis 1+ Sodium Level 138 Potassium Level 3.9 Chloride Level 115 H Carbon Dioxide Level 15 L Anion Gap 12 Blood Urea Nitrogen 36 H Creatinine 2.68 H Glucose Level 120 Calcium Level 7.8 L Magnesium Level 2.0 Total Bilirubin Direct Bilirubin Indirect Bilirubin Aspartate Amino Transf (AST/SGOT) 53 H Alanine Aminotransferase (ALT/SGPT) 40 Alkaline Phosphatase 275 #H Total Protein 5.7 L Albumin 2.3 L Globulin 3.40 H Albumin/Globulin Ratio 0.67 Test 09/01/17 11:20 Lab Scanned Report REFERENCE LAB Medications Medications Current Medications Ondansetron HCl (Zofran Inj) 4 mg Q6H PRN IV NAUSEA AND/OR VOMITING Last administered on 08/29/17 08:36; Admin Dose 4 MG; Start 08/25/17 at 08:00 Morphine Sulfate (morphine) 2 mg Q4H PRN IV PAIN Last administered on 08/30/17 22:29; Admin Dose 2 MG; Start 08/25/17 at 08:00 Amlodipine Besylate (Norvasc) 5 mg DAILY PO Last administered on 09/01/17 09: 15; Admin Dose 5 MG; Start 08/25/17 at 09:00 Bisoprolol Fumarate (Zebeta) 10 mg DAILY PO Last administered on 09/01/17 09: 15; Admin Dose 10 MG; Start 08/25/17 at 09:00 Loratadine (Claritin) 10 mg DAILY PO Last administered on 09/01/17 09:15; Admin Dose 10 MG; Start 08/25/17 at 09:00 Losartan Potassium (Cozaar) 50 mg DAILY PO Last administered on 09/01/17 09: 15; Admin Dose 50 MG; Start 08/25/17 at 09:00 Diagnostic Test (Pha) 1 ea 1 ea 02 XX ; Start 08/26/17 at 02:00 Cefepime HCl (Maxipime 1gm/50 ml (Pmx)) 50 ml @ 100 mls/hr Q24H IVPB Last administered on 09/01/17 09:20; Admin Dose 100 MLS/HR; Start 08/25/17 at 10: 00 Miscellaneous Information 1 ea NOTE XX ; Start 08/25/17 at 14:00 Glucose (Glutose) 15 gm Q15M PRN PO DECREASED GLUCOSE; Start 08/25/17 at 14:00 Glucose (Glutose) 22.5 gm Q15M PRN PO DECREASED GLUCOSE; Start 08/25/17 at 14: 00 Dextrose (D50w Syringe) 25 ml Q15M PRN IV DECREASED GLUCOSE Last administered on 08/27/17 18:20; Admin Dose 25 ML; Start 08/25/17 at 14:00 Dextrose (D50w Syringe) 50 ml Q15M PRN IV DECREASED GLUCOSE; Start 08/25/17 at 14:00 Glucagon (Glucagen) 1 mg Q15M PRN IM DECREASED GLUCOSE; Start 08/25/17 at 14: 00 Glucose (Glutose) 15 gm Q15M PRN BUCCAL DECREASED GLUCOSE; Start 08/25/17 at 14:00 Acetaminophen (Tylenol Tab) 650 mg Q4H PRN PO PAIN AND OR ELEVATED TEMP Last administered on 08/26/17 17:06; Admin Dose 650 MG; Start 08/25/17 at 20:30 Filgrastim 480 mcg 480 mcg DAILY@17 SC Last administered on 08/31/17 18:40; Admin Dose 480 MCG; Start 08/27/17 at 17:00 Fluconazole (Diflucan 200 Mg/ NS (Pmx)) 100 ml @ 100 mls/hr Q24H IVPB Last administered on 08/31/17 13:06; Admin Dose 100 MLS/HR; Start 08/27/17 at 13: 00 Insulin Glargine (Lantus) 9 unit DAILY@10 SC Last administered on 09/01/17 10 :00; Admin Dose 9 UNIT; Start 08/28/17 at 10:00 Miscellaneous Medication (Bax Susp) 10 ml TID PO Last administered on 09:16; Admin Dose 10 ML; Start 08/29/17 at 13:00 Citric Acid/ Sodium Citrate 30 ml 30 ml TID PO Last administered on 09/01/17 09:16; Admin Dose 30 ML; Start 08/29/17 at 21:00 Sodium Bicarbonate/ Dextrose (Na Bicarb/D5W) 1,100 ml @ 50 mls/hr Q22H IV Last administered on 08/30/17 11:50; Admin Dose 50 MLS/HR; Start 08/30/17 at 11:30 Lidocaine 15 ml 15 ml QID PO Last administered on 09/01/17 09:15; Admin Dose 15 ML; Start 08/30/17 at 21:00; Stop 09/06/17 at 21:00 Leucovorin Calcium/Dextrose (Leucovorin Calcium Inj/D5W) 50 ml @ 200 mls/hr Q6H IV Last administered on 09/01/17 09:20; Admin Dose 200 MLS/HR; Start at 22:00 Morphine Sulfate 1 mg 1 mg Q4H PRN IV LESS THAN 5/10 PAIN; Start 08/30/17 at 20:00 Vancomycin HCl (Vancocin) 250 ml @ 125 mls/hr Q72H IVPB Last administered on 09/01/17 11:10; Admin Dose 125 MLS/HR; Start 09/01/17 at 11:00 ARDEN JACKMAN MD Sep 01, 2017 11:57
[2017-09-01] MEDS ORDERED: ALBUTEROL/IPRATROPIUM (NEB) 3 ML AMP HHN PRN (12:00)
--- NOTE | 2017-09-01 12:02 | PN ---
Date/Time of Note Date/Time of Note DATE: 09/01/17 TIME: 12:02 Assessment/Plan VTE Prophylaxis VTE Prophylaxis Intervention: contraindicated Lines/Catheters IV Catheter Type (from Nrsg): Peripheral IV Urinary Cath still in place: Yes Reason Cath still needed: terminal illness/intractable pain Assessment/Plan Assessment/Plan 1. Pancytopenia - Hematology on board and recommendations appreciated - Hgb stable this am but platelets this am were 4. Transfused 1 unit of platelets and will continue to monitor. Transfuse if remains <10K - s/p blood transfusions and plt transfusions. - obtained PCP phone number and will contact to find out why on methotrexate. - Once plt more stable, will need to address with Heme if bone marrow biopsy is warranted 2. Mucositis 2/2 methotrexate use - lidocaine viscous and diphen/lido/mal oral solution ordered. Morphine if pain remain intolerable for PO intake - Pureed diet 3. Left lower extremity cellulitis - ID and Surgery on board. Recommendations appreciated - Will continue current management and advised to keep leg elevated - CT LE showed cellulitis and no evidence of osteomyelitis. Xray LE also performed and no osteomyelitis appreciated. 4. Vascular insufficiency - Vascular surgery on board and recommendations appreciated. No current vascular intervention as the patient has not developed any gangrene or ulcers 5. Neutropenia - remains low but trending upward. On Neupogen - Heme on board and recommendations appreciated 6. BK vs BK on CKD - Nephrology on board and recommendations appreciated. Given iv bicarb total 1 L for NAG yesterday - Cr improving - Monitor UOP - HIV negative, KASSY negative 7. Hypokalemia - replaced 8. Eosinophilia - trending down after Sulfasalazine stopped 9. Disposition - Will continue monitoring on Med/Surg Subjective 24 Hr Interval Summary Free Text/Dictation Patient still experiencing discomfort in mouth secondary to mucositis. Also c/ o wheezing and shortness of breath. Platelets this am were 4 but no pooja bleeding appreciated. Exam/Review of Systems Vital Signs Vitals Vital Signs Date Time Temp Pulse Resp B/P Pulse Ox O2 Delivery O2 Flow Rate FiO2 09/01/17 07:47 98.2 82 16 167/74 98 Intake and Output 08/31/17 08/31/17 09/01/17 14:59 22:59 06:59 Intake Total 2000 ml 640 ml Output Total 650 ml 950 ml Balance 1350 ml -310 ml Exam Gen : Flat affect, dried blood on lower lip, no acute bleeding appreciated HEENT: NC/AT, EOM intact, PERRL Neck: Supple, full ROM Respiratory: CTAB, with expiratory wheezes Cardiovascular: nl pulses, regular rate and rhythm. no murmurs Gastrointestinal: Soft, NT, no rebound or guarding. non distended Extremities: LLE erythema, warmth, and tenderness- improving. Dry skin with chronic hyperpigmentation Results Result Diagram: 09/01/17 0540 09/01/17 0540 Results 24 hrs Laboratory Tests Test 08/31/17 17:32 08/31/17 20:38 09/01/17 05:40 09/01/17 08:01 Bedside Glucose 157 169 116 White Blood Count 2.8 #L Red Blood Count 2.67 L Hemoglobin 8.1 L Hematocrit 23.8 L Mean Corpuscular Volume 89.1 Mean Corpuscular Hemoglobin 30.3 Mean Corpuscular Hemoglobin Concent 34.0 Red Cell Distribution Width 14.9 H Platelet Count 4 *L Mean Platelet Volume Neutrophils % Segmented Neutrophils % (Manual) 28 L Band Neutrophils % (Manual) 6 H Lymphocytes % Lymphocytes % (Manual) 30 Reactive Lymphocytes % (Manual) 1 H Monocytes % Monocytes % (Manual) 11 Eosinophils % Eosinophils % (Manual) 24 H Basophils % Nucleated Red Blood Cells % 0.7 H Neutrophils # Neutrophils # (Manual) 0.8 L Band Neutrophils # 0.1 Absolute Lymphocytes (Manual) 0.8 Lymphocytes # Reactive Lymphocytes # 0.0 Monocytes # Absolute Monocytes (Manual) 0.3 Eosinophils # Basophils # Nucleated Red Blood Cells # Platelet Estimate SIG DECREASED Giant Platelets 2 H Poikilocytosis 1+ Sodium Level 138 Potassium Level 3.9 Chloride Level 115 H Carbon Dioxide Level 15 L Anion Gap 12 Blood Urea Nitrogen 36 H Creatinine 2.68 H Glucose Level 120 Calcium Level 7.8 L Magnesium Level 2.0 Total Bilirubin Direct Bilirubin Indirect Bilirubin Aspartate Amino Transf (AST/SGOT) 53 H Alanine Aminotransferase (ALT/SGPT) 40 Alkaline Phosphatase 275 #H Total Protein 5.7 L Albumin 2.3 L Globulin 3.40 H Albumin/Globulin Ratio 0.67 Test 09/01/17 11:20 Lab Scanned Report REFERENCE LAB Medications Medications Current Medications Ondansetron HCl (Zofran Inj) 4 mg Q6H PRN IV NAUSEA AND/OR VOMITING Last administered on 08/29/17 08:36; Admin Dose 4 MG; Start 08/25/17 at 08:00 Morphine Sulfate (morphine) 2 mg Q4H PRN IV PAIN Last administered on 08/30/17 22:29; Admin Dose 2 MG; Start 08/25/17 at 08:00 Amlodipine Besylate (Norvasc) 5 mg DAILY PO Last administered on 09/01/17 09: 15; Admin Dose 5 MG; Start 08/25/17 at 09:00 Bisoprolol Fumarate (Zebeta) 10 mg DAILY PO Last administered on 09/01/17 09: 15; Admin Dose 10 MG; Start 08/25/17 at 09:00 Loratadine (Claritin) 10 mg DAILY PO Last administered on 09/01/17 09:15; Admin Dose 10 MG; Start 08/25/17 at 09:00 Losartan Potassium (Cozaar) 50 mg DAILY PO Last administered on 09/01/17 09: 15; Admin Dose 50 MG; Start 08/25/17 at 09:00 Diagnostic Test (Pha) 1 ea 1 ea 02 XX ; Start 08/26/17 at 02:00 Cefepime HCl (Maxipime 1gm/50 ml (Pmx)) 50 ml @ 100 mls/hr Q24H IVPB Last administered on 09/01/17 09:20; Admin Dose 100 MLS/HR; Start 08/25/17 at 10: 00 Miscellaneous Information 1 ea NOTE XX ; Start 08/25/17 at 14:00 Glucose (Glutose) 15 gm Q15M PRN PO DECREASED GLUCOSE; Start 08/25/17 at 14:00 Glucose (Glutose) 22.5 gm Q15M PRN PO DECREASED GLUCOSE; Start 08/25/17 at 14: 00 Dextrose (D50w Syringe) 25 ml Q15M PRN IV DECREASED GLUCOSE Last administered on 08/27/17 18:20; Admin Dose 25 ML; Start 08/25/17 at 14:00 Dextrose (D50w Syringe) 50 ml Q15M PRN IV DECREASED GLUCOSE; Start 08/25/17 at 14:00 Glucagon (Glucagen) 1 mg Q15M PRN IM DECREASED GLUCOSE; Start 08/25/17 at 14: 00 Glucose (Glutose) 15 gm Q15M PRN BUCCAL DECREASED GLUCOSE; Start 08/25/17 at 14:00 Acetaminophen (Tylenol Tab) 650 mg Q4H PRN PO PAIN AND OR ELEVATED TEMP Last administered on 08/26/17 17:06; Admin Dose 650 MG; Start 08/25/17 at 20:30 Filgrastim 480 mcg 480 mcg DAILY@17 SC Last administered on 08/31/17 18:40; Admin Dose 480 MCG; Start 08/27/17 at 17:00 Fluconazole (Diflucan 200 Mg/ NS (Pmx)) 100 ml @ 100 mls/hr Q24H IVPB Last administered on 08/31/17 13:06; Admin Dose 100 MLS/HR; Start 08/27/17 at 13: 00 Insulin Glargine (Lantus) 9 unit DAILY@10 SC Last administered on 09/01/17 10 :00; Admin Dose 9 UNIT; Start 08/28/17 at 10:00 Miscellaneous Medication (Bax Susp) 10 ml TID PO Last administered on 09:16; Admin Dose 10 ML; Start 08/29/17 at 13:00 Citric Acid/ Sodium Citrate (Bicitra) 30 ml TID PO Last administered on 09:16; Admin Dose 30 ML; Start 08/29/17 at 21:00 Lidocaine 15 ml 15 ml QID PO Last administered on 09/01/17 09:15; Admin Dose 15 ML; Start 08/30/17 at 21:00; Stop 09/06/17 at 21:00 Leucovorin Calcium/Dextrose (Leucovorin Calcium Inj/D5W) 50 ml @ 200 mls/hr Q6H IV Last administered on 09/01/17 09:20; Admin Dose 200 MLS/HR; Start at 22:00 Morphine Sulfate 1 mg 1 mg Q4H PRN IV LESS THAN 5/10 PAIN; Start 08/30/17 at 20:00 Vancomycin HCl (Vancocin) 250 ml @ 125 mls/hr Q72H IVPB Last administered on 09/01/17 11:10; Admin Dose 125 MLS/HR; Start 09/01/17 at 11:00 JOANA BARKLEY MD Sep 01, 2017 12:02
--- NOTE | 2017-09-01 12:45 | CONS ---
Date/Time of Note Date/Time of Note DATE: 09/01/17 TIME: 12:43 Consult Date/Type/Reason Admit Date/Time Aug 24, 2017 at 19:05 Initial Consult Date 08/29/17 Type of Consultation: ID Ordering Provider: GIA DUMONT Objective Vital Signs Date Time Temp Pulse Resp B/P Pulse Ox O2 Delivery O2 Flow Rate FiO2 09/01/17 07:47 98.2 82 16 167/74 98 Intake and Output 08/31/17 08/31/17 09/01/17 15:00 23:00 07:00 Intake Total 2000 ml 640 ml Output Total 650 ml 950 ml Balance 1350 ml -310 ml Results/Medications Result Diagram: 09/01/17 0540 09/01/17 0540 Results 24 hrs Laboratory Tests Test 08/31/17 17:32 08/31/17 20:38 09/01/17 05:40 09/01/17 08:01 Bedside Glucose 157 169 116 White Blood Count 2.8 #L Red Blood Count 2.67 L Hemoglobin 8.1 L Hematocrit 23.8 L Mean Corpuscular Volume 89.1 Mean Corpuscular Hemoglobin 30.3 Mean Corpuscular Hemoglobin Concent 34.0 Red Cell Distribution Width 14.9 H Platelet Count 4 *L Mean Platelet Volume Neutrophils % Segmented Neutrophils % (Manual) 28 L Band Neutrophils % (Manual) 6 H Lymphocytes % Lymphocytes % (Manual) 30 Reactive Lymphocytes % (Manual) 1 H Monocytes % Monocytes % (Manual) 11 Eosinophils % Eosinophils % (Manual) 24 H Basophils % Nucleated Red Blood Cells % 0.7 H Neutrophils # Neutrophils # (Manual) 0.8 L Band Neutrophils # 0.1 Absolute Lymphocytes (Manual) 0.8 Lymphocytes # Reactive Lymphocytes # 0.0 Monocytes # Absolute Monocytes (Manual) 0.3 Eosinophils # Basophils # Nucleated Red Blood Cells # Platelet Estimate SIG DECREASED Giant Platelets 2 H Poikilocytosis 1+ Sodium Level 138 Potassium Level 3.9 Chloride Level 115 H Carbon Dioxide Level 15 L Anion Gap 12 Blood Urea Nitrogen 36 H Creatinine 2.68 H Glucose Level 120 Calcium Level 7.8 L Magnesium Level 2.0 Total Bilirubin Direct Bilirubin Indirect Bilirubin Aspartate Amino Transf (AST/SGOT) 53 H Alanine Aminotransferase (ALT/SGPT) 40 Alkaline Phosphatase 275 #H Total Protein 5.7 L Albumin 2.3 L Globulin 3.40 H Albumin/Globulin Ratio 0.67 Test 09/01/17 10:26 09/01/17 11:20 09/01/17 12:04 Vancomycin Level Trough 10.6 Lab Scanned Report REFERENCE LAB Bedside Glucose 170 Medications Current Medications Ondansetron HCl (Zofran Inj) 4 mg Q6H PRN IV NAUSEA AND/OR VOMITING Last administered on 08/29/17 08:36; Admin Dose 4 MG; Start 08/25/17 at 08:00 Morphine Sulfate (morphine) 2 mg Q4H PRN IV PAIN Last administered on 08/30/17 22:29; Admin Dose 2 MG; Start 08/25/17 at 08:00 Amlodipine Besylate (Norvasc) 5 mg DAILY PO Last administered on 09/01/17 09: 15; Admin Dose 5 MG; Start 08/25/17 at 09:00 Bisoprolol Fumarate (Zebeta) 10 mg DAILY PO Last administered on 09/01/17 09: 15; Admin Dose 10 MG; Start 08/25/17 at 09:00 Loratadine (Claritin) 10 mg DAILY PO Last administered on 09/01/17 09:15; Admin Dose 10 MG; Start 08/25/17 at 09:00 Losartan Potassium (Cozaar) 50 mg DAILY PO Last administered on 09/01/17 09: 15; Admin Dose 50 MG; Start 08/25/17 at 09:00 Diagnostic Test (Pha) (Accu-Chek) 1 ea 02 XX ; Start 08/26/17 at 02:00 Miscellaneous Information 1 ea NOTE XX ; Start 08/25/17 at 14:00 Glucose (Glutose) 15 gm Q15M PRN PO DECREASED GLUCOSE; Start 08/25/17 at 14:00 Glucose (Glutose) 22.5 gm Q15M PRN PO DECREASED GLUCOSE; Start 08/25/17 at 14: 00 Dextrose (D50w Syringe) 25 ml Q15M PRN IV DECREASED GLUCOSE Last administered on 08/27/17 18:20; Admin Dose 25 ML; Start 08/25/17 at 14:00 Dextrose (D50w Syringe) 50 ml Q15M PRN IV DECREASED GLUCOSE; Start 08/25/17 at 14:00 Glucagon (Glucagen) 1 mg Q15M PRN IM DECREASED GLUCOSE; Start 08/25/17 at 14: 00 Glucose (Glutose) 15 gm Q15M PRN BUCCAL DECREASED GLUCOSE; Start 08/25/17 at 14:00 Acetaminophen (Tylenol Tab) 650 mg Q4H PRN PO PAIN AND OR ELEVATED TEMP Last administered on 08/26/17 17:06; Admin Dose 650 MG; Start 08/25/17 at 20:30 Filgrastim 480 mcg 480 mcg DAILY@17 SC Last administered on 08/31/17 18:40; Admin Dose 480 MCG; Start 08/27/17 at 17:00 Fluconazole (Diflucan 200 Mg/ NS (Pmx)) 100 ml @ 100 mls/hr Q24H IVPB Last administered on 08/31/17 13:06; Admin Dose 100 MLS/HR; Start 08/27/17 at 13: 00 Insulin Glargine (Lantus) 9 unit DAILY@10 SC Last administered on 09/01/17 10 :00; Admin Dose 9 UNIT; Start 08/28/17 at 10:00 Miscellaneous Medication (Bax Susp) 10 ml TID PO Last administered on 09:16; Admin Dose 10 ML; Start 08/29/17 at 13:00 Citric Acid/ Sodium Citrate (Bicitra) 30 ml TID PO Last administered on 09:16; Admin Dose 30 ML; Start 08/29/17 at 21:00 Lidocaine 15 ml 15 ml QID PO Last administered on 09/01/17 09:15; Admin Dose 15 ML; Start 08/30/17 at 21:00; Stop 09/06/17 at 21:00 Leucovorin Calcium/Dextrose (Leucovorin Calcium Inj/D5W) 50 ml @ 200 mls/hr Q6H IV Last administered on 09/01/17 09:20; Admin Dose 200 MLS/HR; Start at 22:00 Morphine Sulfate 1 mg 1 mg Q4H PRN IV LESS THAN 5/10 PAIN; Start 08/30/17 at 20:00 Vancomycin HCl 250 ml @ 125 mls/hr Q72H IVPB Last administered on 09/01/17 11:10; Admin Dose 125 MLS/HR; Start 09/01/17 at 11:00; Stop 09/01/17 at 13:00 Cefepime HCl (Maxipime 1gm/50 ml (Pmx)) 50 ml @ 100 mls/hr Q24H IVPB ; Start 09/02/17 at 09:00 Assessment/Plan Chief Complaint/Hosp Course SUBJECTIVE: Awake, looks comfortable, no fevers over night,, LLE swelling decreased MICROBIOLOGY: Urine and blood cultures negative. ANTIMICROBIALS: 1. Fluconazole. 2. Vancomycin. 3. Cefepime. PHYSICAL EXAMINATION: GENERAL: This is a well-developed, elderly woman who is in no distress. HEENT: Head atraumatic, normocephalic. Sclerae anicteric. Buccal mucosa dry. NECK: Supple. CHEST: Rise symmetrical. Breath sounds diminished to bases. HEART: S1, S2. ABDOMEN: Soft, bowel tones present. EXTREMITIES: Without cyanosis. Left lower extremity with swelling and erythema , painful to touch. ASSESSMENT: 1. Left lower extremity cellulitis. 2. Pancytopenia/severe thrombocytopenia. 3. Neutropenia. 4. Acute possibly on chronic kidney disease. 5. Hypertension. 6. Diabetes. PLAN: The patient remains unchanged, LLE swelling decreasing, continue abx, LLE elevation, f/u hematology/podiatry/renal rec-s, bld products DW staff Problems: CODY VASQUEZ NP Sep 01, 2017 12:45
[2017-09-01] MEDS: FLUCONAZOLE 200 MG/NS (PMX) 100 ML IVPB SCH (12:54)
[2017-09-01 14:53] VITALS: BP_SYST 169; BP_SYST 179; BP_DIAS 78; RESP 18
--- NOTE | 2017-09-01 14:59 | RADRPT ---
PROCEDURE: XR Chest. CLINICAL INDICATION: Shortness of breath. TECHNIQUE: Single frontal view of the chest was obtained. COMPARISON: 08/24/2017. FINDINGS: The cardiomediastinal silhouette is stable in size and configuration. Potential right upper lobe air space disease is present. The left lung is clear. There is no consolidation, pulmonary edema or ple ural effusion. IMPRESSION: 1. Potential right upper lobe air space disease. Short-term follow-up chest examination is advised. 2.. Unchanged bibasilar, right greater than left subsegmental atelectasis. RPTAT: [facility] Physician Maykel Date Time Electronically viewed and signed by Singh Kamara Physician on 09/01/2017 14:59 RR/
[2017-09-01] MEDS ORDERED: VITAMIN A & D 5 GM OINT PACKET TOP ONE (15:36)
--- NOTE | 2017-09-01 16:13 | PN ---
Date/Time of Note Date/Time of Note DATE: 09/01/17 TIME: 16:11 Assessment/Plan VTE Prophylaxis VTE Prophylaxis Intervention: other (thrombocytopenia) Lines/Catheters IV Catheter Type (from Nrs): Peripheral IV Urinary Cath still in place: Yes Reason Cath still needed: skin wounds contaminated by urine Assessment/Plan Chief Complaint/Hosp Course Unable to converse fully due to language issue. I have spoken to Dr. Rocha and reviewed chart. 61 yo woman admitted for cellulitis of lower left leg. History of diabetes, hypertension, obesity, azotemia, abnormal liver studies and methotrexate administration for unclear diagnosis ( leg pain). Problems: Assessment/Plan WBC is beginning to show signs of rising since filgrastim started. Plt count is low. Transfusion ordered. Subjective 24 Hr Interval Summary Free Text/Dictation Unable to talk due to language issues. Family is not here now. Exam/Review of Systems Vital Signs Vitals Vital Signs Date Time Temp Pulse Resp B/P Pulse Ox O2 Delivery O2 Flow Rate FiO2 09/01/17 14:53 98.0 76 18 179/78 97 09/01/17 12:46 21 Intake and Output 08/31/17 08/31/17 09/01/17 15:00 23:00 07:00 Intake Total 2000 ml 640 ml Output Total 650 ml 950 ml Balance 1350 ml -310 ml Exam Constitutional: alert Head: normocephalic Eyes: other (pallor) Neck: supple Respiratory: clear to auscultation Cardiovascular: regular rate and rhythm (tachycardic) Gastrointestinal: non-tender, soft Extremities: other (cellulitis of lower left leg) Results Result Diagram: 09/01/17 0540 09/01/17 0540 Results 24 hrs Laboratory Tests Test 08/31/17 17:32 08/31/17 20:38 09/01/17 05:40 09/01/17 08:01 Bedside Glucose 157 169 116 White Blood Count 2.8 #L Red Blood Count 2.67 L Hemoglobin 8.1 L Hematocrit 23.8 L Mean Corpuscular Volume 89.1 Mean Corpuscular Hemoglobin 30.3 Mean Corpuscular Hemoglobin Concent 34.0 Red Cell Distribution Width 14.9 H Platelet Count 4 *L Mean Platelet Volume Neutrophils % Segmented Neutrophils % (Manual) 28 L Band Neutrophils % (Manual) 6 H Lymphocytes % Lymphocytes % (Manual) 30 Reactive Lymphocytes % (Manual) 1 H Monocytes % Monocytes % (Manual) 11 Eosinophils % Eosinophils % (Manual) 24 H Basophils % Nucleated Red Blood Cells % 0.7 H Neutrophils # Neutrophils # (Manual) 0.8 L Band Neutrophils # 0.1 Absolute Lymphocytes (Manual) 0.8 Lymphocytes # Reactive Lymphocytes # 0.0 Monocytes # Absolute Monocytes (Manual) 0.3 Eosinophils # Basophils # Nucleated Red Blood Cells # Platelet Estimate SIG DECREASED Giant Platelets 2 H Poikilocytosis 1+ Sodium Level 138 Potassium Level 3.9 Chloride Level 115 H Carbon Dioxide Level 15 L Anion Gap 12 Blood Urea Nitrogen 36 H Creatinine 2.68 H Glucose Level 120 Calcium Level 7.8 L Magnesium Level 2.0 Total Bilirubin Direct Bilirubin Indirect Bilirubin Aspartate Amino Transf (AST/SGOT) 53 H Alanine Aminotransferase (ALT/SGPT) 40 Alkaline Phosphatase 275 #H Total Protein 5.7 L Albumin 2.3 L Globulin 3.40 H Albumin/Globulin Ratio 0.67 Test 09/01/17 10:26 09/01/17 11:20 09/01/17 12:04 Vancomycin Level Trough 10.6 Lab Scanned Report REFERENCE LAB Bedside Glucose 170 Medications Medications Current Medications Ondansetron HCl (Zofran Inj) 4 mg Q6H PRN IV NAUSEA AND/OR VOMITING Last administered on 08/29/17 08:36; Admin Dose 4 MG; Start 08/25/17 at 08:00 Morphine Sulfate (morphine) 2 mg Q4H PRN IV 5-10 PAIN Last administered on 08/30/17 22:29; Admin Dose 2 MG; Start 08/25/17 at 08:00 Amlodipine Besylate (Norvasc) 5 mg DAILY PO Last administered on 09/01/17 09: 15; Admin Dose 5 MG; Start 08/25/17 at 09:00 Bisoprolol Fumarate (Zebeta) 10 mg DAILY PO Last administered on 09/01/17 09: 15; Admin Dose 10 MG; Start 08/25/17 at 09:00 Loratadine (Claritin) 10 mg DAILY PO Last administered on 09/01/17 09:15; Admin Dose 10 MG; Start 08/25/17 at 09:00 Losartan Potassium (Cozaar) 50 mg DAILY PO Last administered on 09/01/17 09: 15; Admin Dose 50 MG; Start 08/25/17 at 09:00 Diagnostic Test (Pha) (Accu-Chek) 1 ea 02 XX ; Start 08/26/17 at 02:00 Miscellaneous Information 1 ea NOTE XX ; Start 08/25/17 at 14:00 Glucose (Glutose) 15 gm Q15M PRN PO DECREASED GLUCOSE; Start 08/25/17 at 14:00 Glucose (Glutose) 22.5 gm Q15M PRN PO DECREASED GLUCOSE; Start 08/25/17 at 14: 00 Dextrose (D50w Syringe) 25 ml Q15M PRN IV DECREASED GLUCOSE Last administered on 08/27/17 18:20; Admin Dose 25 ML; Start 08/25/17 at 14:00 Dextrose (D50w Syringe) 50 ml Q15M PRN IV DECREASED GLUCOSE; Start 08/25/17 at 14:00 Glucagon (Glucagen) 1 mg Q15M PRN IM DECREASED GLUCOSE; Start 08/25/17 at 14: 00 Glucose (Glutose) 15 gm Q15M PRN BUCCAL DECREASED GLUCOSE; Start 08/25/17 at 14:00 Acetaminophen (Tylenol Tab) 650 mg Q4H PRN PO PAIN AND OR ELEVATED TEMP Last administered on 08/26/17 17:06; Admin Dose 650 MG; Start 08/25/17 at 20:30 Filgrastim 480 mcg 480 mcg DAILY@17 SC Last administered on 08/31/17 18:40; Admin Dose 480 MCG; Start 08/27/17 at 17:00 Fluconazole (Diflucan 200 Mg/ NS (Pmx)) 100 ml @ 100 mls/hr Q24H IVPB Last administered on 09/01/17 12:54; Admin Dose 100 MLS/HR; Start 08/27/17 at 13: 00 Insulin Glargine (Lantus) 9 unit DAILY@10 SC Last administered on 09/01/17 10 :00; Admin Dose 9 UNIT; Start 08/28/17 at 10:00 Miscellaneous Medication (Bax Susp) 10 ml TID PO Last administered on 12:57; Admin Dose 10 ML; Start 08/29/17 at 13:00 Citric Acid/ Sodium Citrate (Bicitra) 30 ml TID PO Last administered on 12:54; Admin Dose 30 ML; Start 08/29/17 at 21:00 Lidocaine 15 ml 15 ml QID PO Last administered on 09/01/17 12:54; Admin Dose 15 ML; Start 08/30/17 at 21:00; Stop 09/06/17 at 21:00 Leucovorin Calcium/Dextrose (Leucovorin Calcium Inj/D5W) 50 ml @ 200 mls/hr Q6H IV Last administered on 09/01/17 09:20; Admin Dose 200 MLS/HR; Start at 22:00 Morphine Sulfate 1 mg 1 mg Q4H PRN IV LESS THAN 5/10 PAIN Last administered on 09/01/17 13:10; Admin Dose 1 MG; Start 08/30/17 at 20:00 Cefepime HCl 50 ml @ 100 mls/hr Q24H IVPB ; Start 09/02/17 at 09:00 Vancomycin HCl/ Sodium Chloride (Vancocin/NS) 250 ml @ 83.333 mls/ hr Q72H IVPB ; Start 09/04/17 at 11:00 SARY DUQUE MD Sep 01, 2017 16:13
[2017-09-01] MEDS: FILGRASTIM 480 MCG INJ SC SCH (17:47)
[2017-09-01 19:56] VITALS: BP 181/80; RESP 20
[2017-09-01] MEDS: morphine 2 MG INJ IV PRN (20:06)
--- NOTE | 2017-09-01 21:02 | PN ---
Date/Time of Note Date/Time of Note DATE: 09/01/17 TIME: 21:02 Assessment/Plan Lines/Catheters IV Catheter Type (from Nrs): Peripheral IV Reina in Place (from Nrs): Yes Assessment/Plan Chief Complaint/Hosp Course 1. Left lower extremity cellulitis and edema with history of diabetes -IV antibiotics -Elevate above heart level -Agree with CT lower extremity, pending 2. Pancytopenia with history of unknown reason for methotrexate therapy -Hematology follow-up and optimization 3. Diabetes -Nutrition medication optimization -Encourage weight loss 4. Hypertension -Nutrition medication optimization -Encourage weight loss 5. Chronic kidney disease -Judicious fluid management -Avoid nephrotoxic agents 6. Abnormal LFTs of unknown etiology may be secondary to fatty liver -Monitor 7. Hypoalbuminemia with hypocalcemia -Nutritional optimization Thank you very much for consulting me in this patient's care, Problems: Exam/Review of Systems Vital Signs Vitals Vital Signs Date Time Temp Pulse Resp B/P Pulse Ox O2 Delivery O2 Flow Rate FiO2 09/01/17 19:56 98.0 88 20 181/80 94 09/01/17 12:46 21 Intake and Output 08/31/17 08/31/17 09/01/17 15:00 23:00 07:00 Intake Total 2000 ml 640 ml Output Total 650 ml 950 ml Balance 1350 ml -310 ml Results Result Diagram: 09/01/17 0540 09/01/17 0540 BOB FUNEZ MD Sep 01, 2017 21:02
[2017-09-01] MEDS: hydrALAzine 20 MG INJ IV PRN (21:40)
[2017-09-01] MEDS ORDERED: hydrALAzine 20 MG INJ IV ONE (22:30)
[2017-09-01] MEDS ORDERED: morphine 2 MG INJ IV ONE (23:30)
[2017-09-02] MEDS: ACCU-CHEK XX SCH (00:31)
[2017-09-02] MEDS: ALBUTEROL/IPRATROPIUM (NEB) 3 ML AMP HHN SCH ×6 (00:32→20:30)
[2017-09-02 02:00] VITALS: BP 135/61; RESP 20
[2017-09-02] MEDS: DEXTROSE 5% IV SCH ×4 (04:04→23:16)
[2017-09-02] MEDS: LEUCOVORIN CALCIUM IV SCH ×4 (04:04→23:16)
[2017-09-02 07:27] VITALS: BP 132/90; RESP 18
[2017-09-02] MEDS: CEFEPIME 1GM/50 ML (PMX) 50 ML IVPB SCH (08:58)
[2017-09-02] MEDS: INSULIN ASPART [NOVOLOG] 3 ML PEN SC SCH ×6 (09:03→21:00)
[2017-09-02] MEDS: BISOPROLOL 5 MG TAB PO SCH (09:27)
[2017-09-02] MEDS: CITRIC ACID/NA CITRATE 30 ML CUP PO SCH ×3 (09:28→13:06)
--- NOTE | 2017-09-02 09:53 | CONS ---
Date/Time of Note Date/Time of Note DATE: 09/02/17 TIME: 09:53 Assessment/Plan Assessment/Plan Chief Complaint/Hosp Course 61 y/o with 1. acute on-chronic kidney disease with no known baseline could be due to underlying sepsis/meds vs drug induced Cr improving 2 Underlying acute tubular necrosis, possibly sepsis-induced due to cellulitis of the left lower extremity. 3 Likely underlying diabetic nephropathy, underlying hypertensive nephrosclerosis 4 pancytopenia could be due to sepsis, as well as drug-induced mthx/sulpha 5. Hyponatremia. 6. Non gap Metabolic acidosis likely secondary to renal failure 7 Nephrotic range proteinuria 8 BLE atherosclerosis Plan - Cr improving - Monitor UOP - IV abx per I.D renally dose all meds - Plt transfusion today - Consider Derm eval for biopsy of skin lesion - plt transfusion today - Proteinuria wup negative so far - c/w Losartan Problems: Consultation Date/Type/Reason Admit Date/Time Aug 24, 2017 at 19:05 Initial Consult Date 08/29/17 Type of Consultation: Renal Referring Provider: GIA DUMONT 24 HR Interval Summary Free Text/Dictation Overall is same Plt count 6 today Exam/Review of Systems Vital Signs Vitals Vital Signs Date Time Temp Pulse Resp B/P Pulse Ox O2 Delivery O2 Flow Rate FiO2 09/02/17 08:11 2.0 09/02/17 08:10 91 24 100 Nasal Cannula 09/02/17 07:27 97.8 132/90 09/01/17 21:24 21 Intake and Output 09/01/17 09/01/17 09/02/17 14:59 22:59 06:59 Intake Total 50 ml 1222 ml 170 ml Output Total 800 ml 500 ml Balance 50 ml 422 ml -330 ml Exam Gen : Flat affect, pt bleeding noted from lips HEENT: Unremarkable Neck: Supple, full ROM Respiratory: CTAB Cardiovascular: nl pulses, regular rate and rhythm Gastrointestinal: Soft, NT Extremities: Warml LLEXT edema/erythema/chronic hyperpigmentation changes distal pre-tibial Results Result Diagram: 09/02/17 0532 09/02/17 0532 Results 24 hrs Laboratory Tests Test 09/01/17 10:26 09/01/17 11:20 09/01/17 12:04 09/01/17 17:40 Vancomycin Level Trough 10.6 Lab Scanned Report REFERENCE LAB Bedside Glucose 170 143 Test 09/01/17 21:46 09/02/17 05:32 09/02/17 06:39 09/02/17 08:06 Bedside Glucose 157 163 White Blood Count 10.3 # Red Blood Count 2.46 L Hemoglobin 7.2 L Hematocrit 22.1 L Mean Corpuscular Volume 89.8 Mean Corpuscular Hemoglobin 29.3 Mean Corpuscular Hemoglobin Concent 32.6 Red Cell Distribution Width 15.8 H Platelet Count 6 #*L Mean Platelet Volume Neutrophils % Lymphocytes % Monocytes % Eosinophils % Basophils % Nucleated Red Blood Cells % 0.7 H Neutrophils # Lymphocytes # Monocytes # Eosinophils # Basophils # Nucleated Red Blood Cells # Sodium Level 139 Potassium Level 3.9 Chloride Level 114 H Carbon Dioxide Level 16 L Anion Gap 13 Blood Urea Nitrogen 33 H Creatinine 2.49 H Glucose Level 151 Calcium Level 7.9 L Magnesium Level 2.0 Total Bilirubin 0.7 Direct Bilirubin 0.70 H Indirect Bilirubin 0.0 Aspartate Amino Transf (AST/SGOT) 41 Alanine Aminotransferase (ALT/SGPT) 42 Alkaline Phosphatase 263 H Total Protein 5.8 L Albumin 2.4 L Globulin 3.40 H Albumin/Globulin Ratio 0.70 Lab Scanned Report REFERENCE LAB Medications Medications Current Medications Ondansetron HCl (Zofran Inj) 4 mg Q6H PRN IV NAUSEA AND/OR VOMITING Last administered on 08/29/17 08:36; Admin Dose 4 MG; Start 08/25/17 at 08:00 Morphine Sulfate (morphine) 2 mg Q4H PRN IV PAIN Last administered on 09/01/17 20:06; Admin Dose 2 MG; Start 08/25/17 at 08:00 Amlodipine Besylate (Norvasc) 5 mg DAILY PO Last administered on 09/01/17 09: 15; Admin Dose 5 MG; Start 08/25/17 at 09:00 Bisoprolol Fumarate (Zebeta) 10 mg DAILY PO Last administered on 09/02/17 09: 27; Admin Dose 10 MG; Start 08/25/17 at 09:00 Loratadine (Claritin) 10 mg DAILY PO Last administered on 09/01/17 09:15; Admin Dose 10 MG; Start 08/25/17 at 09:00 Losartan Potassium (Cozaar) 50 mg DAILY PO Last administered on 09/01/17 09: 15; Admin Dose 50 MG; Start 08/25/17 at 09:00 Diagnostic Test (Pha) (Accu-Chek) 1 ea 02 XX ; Start 08/26/17 at 02:00 Miscellaneous Information 1 ea NOTE XX ; Start 08/25/17 at 14:00 Glucose (Glutose) 15 gm Q15M PRN PO DECREASED GLUCOSE; Start 08/25/17 at 14:00 Glucose (Glutose) 22.5 gm Q15M PRN PO DECREASED GLUCOSE; Start 08/25/17 at 14: 00 Dextrose (D50w Syringe) 25 ml Q15M PRN IV DECREASED GLUCOSE Last administered on 08/27/17 18:20; Admin Dose 25 ML; Start 08/25/17 at 14:00 Dextrose (D50w Syringe) 50 ml Q15M PRN IV DECREASED GLUCOSE; Start 08/25/17 at 14:00 Glucagon (Glucagen) 1 mg Q15M PRN IM DECREASED GLUCOSE; Start 08/25/17 at 14: 00 Glucose (Glutose) 15 gm Q15M PRN BUCCAL DECREASED GLUCOSE; Start 08/25/17 at 14:00 Acetaminophen (Tylenol Tab) 650 mg Q4H PRN PO PAIN AND OR ELEVATED TEMP Last administered on 08/26/17 17:06; Admin Dose 650 MG; Start 08/25/17 at 20:30 Filgrastim 480 mcg 480 mcg DAILY@17 SC Last administered on 09/01/17 17:47; Admin Dose 480 MCG; Start 08/27/17 at 17:00 Fluconazole (Diflucan 200 Mg/ NS (Pmx)) 100 ml @ 100 mls/hr Q24H IVPB Last administered on 09/01/17 12:54; Admin Dose 100 MLS/HR; Start 08/27/17 at 13: 00 Insulin Glargine (Lantus) 9 unit DAILY@10 SC Last administered on 09/01/17 10 :00; Admin Dose 9 UNIT; Start 08/28/17 at 10:00 Miscellaneous Medication (Bax Susp) 10 ml TID PO Last administered on 12:57; Admin Dose 10 ML; Start 08/29/17 at 13:00 Citric Acid/ Sodium Citrate (Bicitra) 30 ml TID PO Last administered on 09:28; Admin Dose 30 ML; Start 08/29/17 at 21:00 Lidocaine 15 ml 15 ml QID PO Last administered on 09/01/17 17:44; Admin Dose 15 ML; Start 08/30/17 at 21:00; Stop 09/06/17 at 21:00 Leucovorin Calcium/Dextrose (Leucovorin Calcium Inj/D5W) 50 ml @ 200 mls/hr Q6H IV Last administered on 09/02/17 04:04; Admin Dose 200 MLS/HR; Start at 22:00 Morphine Sulfate 1 mg 1 mg Q4H PRN IV LESS THAN 5/10 PAIN Last administered on 09/01/17 13:10; Admin Dose 1 MG; Start 08/30/17 at 20:00 Cefepime HCl 50 ml @ 100 mls/hr Q24H IVPB Last administered on 09/02/17 08: 58; Admin Dose 100 MLS/HR; Start 09/02/17 at 09:00 Vancomycin HCl/ Sodium Chloride (Vancocin/NS) 250 ml @ 83.333 mls/ hr Q72H IVPB ; Start 09/04/17 at 11:00 Hydralazine HCl (Apresoline) 10 mg Q6H PRN IV ELEVATED SYSTOLIC BP Last administered on 09/01/17 21:40; Admin Dose 10 MG; Start 09/01/17 at 21:30 ARDEN JACKMAN MD Sep 02, 2017 09:53
[2017-09-02] MEDS: DIPHENHYD/MYLANTA/LIDO (PO SYG) PO SCH ×3 (10:26→21:23)
[2017-09-02] MEDS: INSULIN GLARGINE [LANtus] 3 ML PEN SC SCH (10:38)
[2017-09-02] MEDS: LOSARTAN 50 MG TAB PO SCH (10:56)
[2017-09-02] MEDS: LORATADINE 10 MG TAB PO SCH (10:57)
[2017-09-02] MEDS: AMLODIPINE 5 MG TAB PO SCH (10:58)
[2017-09-02] MEDS: LIDOCAINE 2% VISC 15 ML CUP PO SCH ×4 (10:59→21:23)
[2017-09-02] MEDS: FLUCONAZOLE 200 MG/NS (PMX) 100 ML IVPB SCH (13:06)
[2017-09-02 13:10] VITALS: BP 160/70; PULSE 95; RESP 22
--- NOTE | 2017-09-02 13:44 | CONS ---
Date/Time of Note Date/Time of Note DATE: 09/02/17 TIME: 13:43 Consult Date/Type/Reason Admit Date/Time Aug 24, 2017 at 19:05 Initial Consult Date 08/29/17 Type of Consultation: id Ordering Provider: GIA DUMONT Objective Vital Signs Date Time Temp Pulse Resp B/P Pulse Ox O2 Delivery O2 Flow Rate FiO2 09/02/17 13:10 98.2 95 22 160/70 98 2.0 95 09/02/17 12:25 Nasal Cannula 09/01/17 21:24 21 Intake and Output 09/01/17 09/01/17 09/02/17 15:00 23:00 07:00 Intake Total 50 ml 1222 ml 170 ml Output Total 800 ml 500 ml Balance 50 ml 422 ml -330 ml Results/Medications Result Diagram: 09/02/17 0532 09/02/17 0532 Results 24 hrs Laboratory Tests Test 09/01/17 17:40 09/01/17 21:46 09/02/17 05:32 09/02/17 06:39 Bedside Glucose 143 157 White Blood Count 10.3 # Red Blood Count 2.46 L Hemoglobin 7.2 L Hematocrit 22.1 L Mean Corpuscular Volume 89.8 Mean Corpuscular Hemoglobin 29.3 Mean Corpuscular Hemoglobin Concent 32.6 Red Cell Distribution Width 15.8 H Platelet Count 6 #*L Mean Platelet Volume Neutrophils % Segmented Neutrophils % (Manual) 41 Band Neutrophils % (Manual) 16 H Lymphocytes % Lymphocytes % (Manual) 24 Reactive Lymphocytes % (Manual) 5 H Monocytes % Monocytes % (Manual) 10 Eosinophils % Eosinophils % (Manual) 2 Basophils % Metamyelocytes % (manual) 2 H Promyelocytes % (Manual) 1 H Nucleated Red Blood Cells % 0.7 H Neutrophils # Neutrophils # (Manual) 4.4 Band Neutrophils # 1.6 H Absolute Lymphocytes (Manual) 2.4 Lymphocytes # Reactive Lymphocytes # 0.5 H Monocytes # Absolute Monocytes (Manual) 1.0 H Eosinophils # Basophils # Metamyelocytes # 0.2 H Promyelocytes # 0.1 H Nucleated Red Blood Cells # Platelet Estimate SIG DECREASED Giant Platelets 1 H Polychromasia 3+ Poikilocytosis 2+ Anisocytosis 1+ Sodium Level 139 Potassium Level 3.9 Chloride Level 114 H Carbon Dioxide Level 16 L Anion Gap 13 Blood Urea Nitrogen 33 H Creatinine 2.49 H Glucose Level 151 Calcium Level 7.9 L Magnesium Level 2.0 Total Bilirubin 0.7 Direct Bilirubin 0.70 H Indirect Bilirubin 0.0 Aspartate Amino Transf (AST/SGOT) 41 Alanine Aminotransferase (ALT/SGPT) 42 Alkaline Phosphatase 263 H Total Protein 5.8 L Albumin 2.4 L Globulin 3.40 H Albumin/Globulin Ratio 0.70 Lab Scanned Report REFERENCE LAB Test 09/02/17 08:06 09/02/17 10:20 09/02/17 12:24 Bedside Glucose 163 160 119 Medications Current Medications Ondansetron HCl (Zofran Inj) 4 mg Q6H PRN IV NAUSEA AND/OR VOMITING Last administered on 08/29/17 08:36; Admin Dose 4 MG; Start 08/25/17 at 08:00 Morphine Sulfate (morphine) 2 mg Q4H PRN IV PAIN Last administered on 09/01/17 20:06; Admin Dose 2 MG; Start 08/25/17 at 08:00 Amlodipine Besylate (Norvasc) 5 mg DAILY PO Last administered on 09/02/17 10: 58; Admin Dose 5 MG; Start 08/25/17 at 09:00 Bisoprolol Fumarate (Zebeta) 10 mg DAILY PO Last administered on 09/02/17 09: 27; Admin Dose 10 MG; Start 08/25/17 at 09:00 Loratadine (Claritin) 10 mg DAILY PO Last administered on 09/02/17 10:57; Admin Dose 10 MG; Start 08/25/17 at 09:00 Losartan Potassium (Cozaar) 50 mg DAILY PO Last administered on 09/02/17 10: 56; Admin Dose 50 MG; Start 08/25/17 at 09:00 Diagnostic Test (Pha) (Accu-Chek) 1 ea 02 XX ; Start 08/26/17 at 02:00 Miscellaneous Information 1 ea NOTE XX ; Start 08/25/17 at 14:00 Glucose (Glutose) 15 gm Q15M PRN PO DECREASED GLUCOSE; Start 08/25/17 at 14:00 Glucose (Glutose) 22.5 gm Q15M PRN PO DECREASED GLUCOSE; Start 08/25/17 at 14: 00 Dextrose (D50w Syringe) 25 ml Q15M PRN IV DECREASED GLUCOSE Last administered on 08/27/17 18:20; Admin Dose 25 ML; Start 08/25/17 at 14:00 Dextrose (D50w Syringe) 50 ml Q15M PRN IV DECREASED GLUCOSE; Start 08/25/17 at 14:00 Glucagon (Glucagen) 1 mg Q15M PRN IM DECREASED GLUCOSE; Start 08/25/17 at 14: 00 Glucose (Glutose) 15 gm Q15M PRN BUCCAL DECREASED GLUCOSE; Start 08/25/17 at 14:00 Acetaminophen (Tylenol Tab) 650 mg Q4H PRN PO PAIN AND OR ELEVATED TEMP Last administered on 08/26/17 17:06; Admin Dose 650 MG; Start 08/25/17 at 20:30 Filgrastim 480 mcg 480 mcg DAILY@17 SC Last administered on 09/01/17 17:47; Admin Dose 480 MCG; Start 08/27/17 at 17:00 Fluconazole (Diflucan 200 Mg/ NS (Pmx)) 100 ml @ 100 mls/hr Q24H IVPB Last administered on 09/02/17 13:06; Admin Dose 100 MLS/HR; Start 08/27/17 at 13: 00 Insulin Glargine (Lantus) 9 unit DAILY@10 SC Last administered on 09/02/17 10 :38; Admin Dose 9 UNIT; Start 08/28/17 at 10:00 Miscellaneous Medication (Bax Susp) 10 ml TID PO Last administered on 13:06; Admin Dose 10 ML; Start 08/29/17 at 13:00 Citric Acid/ Sodium Citrate (Bicitra) 30 ml TID PO Last administered on 13:06; Admin Dose 30 ML; Start 08/29/17 at 21:00 Lidocaine 15 ml 15 ml QID PO Last administered on 09/02/17 13:06; Admin Dose 15 ML; Start 08/30/17 at 21:00; Stop 09/06/17 at 21:00 Leucovorin Calcium/Dextrose (Leucovorin Calcium Inj/D5W) 50 ml @ 200 mls/hr Q6H IV Last administered on 09/02/17 11:35; Admin Dose 200 MLS/HR; Start at 22:00 Morphine Sulfate 1 mg 1 mg Q4H PRN IV LESS THAN 5/10 PAIN Last administered on 09/01/17 13:10; Admin Dose 1 MG; Start 08/30/17 at 20:00 Cefepime HCl 50 ml @ 100 mls/hr Q24H IVPB Last administered on 09/02/17 08: 58; Admin Dose 100 MLS/HR; Start 09/02/17 at 09:00 Vancomycin HCl/ Sodium Chloride (Vancocin/NS) 250 ml @ 83.333 mls/ hr Q72H IVPB ; Start 09/04/17 at 11:00 Hydralazine HCl (Apresoline) 10 mg Q6H PRN IV ELEVATED SYSTOLIC BP Last administered on 09/01/17 21:40; Admin Dose 10 MG; Start 09/01/17 at 21:30 Assessment/Plan Chief Complaint/Hosp Course SUBJECTIVE: Awake, looks comfortable, no fevers over night, LLE looks better MICROBIOLOGY: Urine and blood cultures negative. ANTIMICROBIALS: 1. Fluconazole. 2. Vancomycin. 3. Cefepime. PHYSICAL EXAMINATION: GENERAL: This is a well-developed, elderly woman who is in no distress. HEENT: Head atraumatic, normocephalic. Sclerae anicteric. Buccal mucosa dry. NECK: Supple. CHEST: Rise symmetrical. Breath sounds diminished to bases. HEART: S1, S2. ABDOMEN: Soft, bowel tones present. EXTREMITIES: Without cyanosis. Left lower extremity with swelling and erythema , painful to touch. ASSESSMENT: 1. Left lower extremity cellulitis. 2. Pancytopenia/severe thrombocytopenia. 3. Neutropenia. 4. Acute possibly on chronic kidney disease. 5. Hypertension. 6. Diabetes. PLAN: The patient remains unchanged, LLE continues to improve, will change Vanco to Daptomycin, continue other abx, LLE elevation, f/u hematology/podiatry/ renal rec-s, bld products per hematology rec-s [facility] staff Problems: CODY VASQUEZ NP Sep 02, 2017 13:44
--- NOTE | 2017-09-02 14:50 | PN ---
Date/Time of Note Date/Time of Note DATE: 09/02/17 TIME: 14:48 Assessment/Plan VTE Prophylaxis VTE Prophylaxis Intervention: other (thrombocytopenia) Lines/Catheters IV Catheter Type (from Nrs): Peripheral IV Urinary Cath still in place: Yes Reason Cath still needed: other (indicate) (debility) Assessment/Plan Chief Complaint/Hosp Course Unable to converse fully due to language issue. I have spoken to Dr. Rocha and reviewed chart. 61 yo woman admitted for cellulitis of lower left leg. History of diabetes, hypertension, obesity, azotemia, abnormal liver studies and methotrexate administration for unclear diagnosis ( leg pain). Problems: Assessment/Plan Leucopenia is improving with filgrastim. Continue present plans. Note that CT of LLE did not show osteomyelitis. Subjective 24 Hr Interval Summary Free Text/Dictation pt is clinically the same. Exam/Review of Systems Vital Signs Vitals Vital Signs Date Time Temp Pulse Resp B/P Pulse Ox O2 Delivery O2 Flow Rate FiO2 09/02/17 13:10 98.2 95 22 160/70 98 2.0 95 09/02/17 12:25 Nasal Cannula 09/01/17 21:24 21 Intake and Output 09/01/17 09/01/17 09/02/17 15:00 23:00 07:00 Intake Total 50 ml 1222 ml 170 ml Output Total 800 ml 500 ml Balance 50 ml 422 ml -330 ml Exam Constitutional: alert Head: normocephalic Eyes: nl conjunctiva Neck: supple Respiratory: clear to auscultation Cardiovascular: regular rate and rhythm Gastrointestinal: soft Extremities: other (LLE cellulitis) Results Result Diagram: 09/02/17 0532 09/02/17 0532 Results 24 hrs Laboratory Tests Test 09/01/17 17:40 09/01/17 21:46 09/02/17 05:32 09/02/17 06:39 Bedside Glucose 143 157 White Blood Count 10.3 # Red Blood Count 2.46 L Hemoglobin 7.2 L Hematocrit 22.1 L Mean Corpuscular Volume 89.8 Mean Corpuscular Hemoglobin 29.3 Mean Corpuscular Hemoglobin Concent 32.6 Red Cell Distribution Width 15.8 H Platelet Count 6 #*L Mean Platelet Volume Neutrophils % Segmented Neutrophils % (Manual) 41 Band Neutrophils % (Manual) 16 H Lymphocytes % Lymphocytes % (Manual) 24 Reactive Lymphocytes % (Manual) 5 H Monocytes % Monocytes % (Manual) 10 Eosinophils % Eosinophils % (Manual) 2 Basophils % Metamyelocytes % (manual) 2 H Promyelocytes % (Manual) 1 H Nucleated Red Blood Cells % 0.7 H Neutrophils # Neutrophils # (Manual) 4.4 Band Neutrophils # 1.6 H Absolute Lymphocytes (Manual) 2.4 Lymphocytes # Reactive Lymphocytes # 0.5 H Monocytes # Absolute Monocytes (Manual) 1.0 H Eosinophils # Basophils # Metamyelocytes # 0.2 H Promyelocytes # 0.1 H Nucleated Red Blood Cells # Platelet Estimate SIG DECREASED Giant Platelets 1 H Polychromasia 3+ Poikilocytosis 2+ Anisocytosis 1+ Sodium Level 139 Potassium Level 3.9 Chloride Level 114 H Carbon Dioxide Level 16 L Anion Gap 13 Blood Urea Nitrogen 33 H Creatinine 2.49 H Glucose Level 151 Calcium Level 7.9 L Magnesium Level 2.0 Total Bilirubin 0.7 Direct Bilirubin 0.70 H Indirect Bilirubin 0.0 Aspartate Amino Transf (AST/SGOT) 41 Alanine Aminotransferase (ALT/SGPT) 42 Alkaline Phosphatase 263 H Total Protein 5.8 L Albumin 2.4 L Globulin 3.40 H Albumin/Globulin Ratio 0.70 Lab Scanned Report REFERENCE LAB Test 09/02/17 08:06 09/02/17 10:20 09/02/17 12:24 Bedside Glucose 163 160 119 Medications Medications Current Medications Ondansetron HCl (Zofran Inj) 4 mg Q6H PRN IV NAUSEA AND/OR VOMITING Last administered on 08/29/17 08:36; Admin Dose 4 MG; Start 08/25/17 at 08:00 Morphine Sulfate (morphine) 2 mg Q4H PRN IV PAIN Last administered on 09/01/17 20:06; Admin Dose 2 MG; Start 08/25/17 at 08:00 Amlodipine Besylate (Norvasc) 5 mg DAILY PO Last administered on 09/02/17 10: 58; Admin Dose 5 MG; Start 08/25/17 at 09:00 Bisoprolol Fumarate (Zebeta) 10 mg DAILY PO Last administered on 09/02/17 09: 27; Admin Dose 10 MG; Start 08/25/17 at 09:00 Loratadine (Claritin) 10 mg DAILY PO Last administered on 09/02/17 10:57; Admin Dose 10 MG; Start 08/25/17 at 09:00 Losartan Potassium (Cozaar) 50 mg DAILY PO Last administered on 09/02/17 10: 56; Admin Dose 50 MG; Start 08/25/17 at 09:00 Diagnostic Test (Pha) (Accu-Chek) 1 ea 02 XX ; Start 08/26/17 at 02:00 Miscellaneous Information 1 ea NOTE XX ; Start 08/25/17 at 14:00 Glucose (Glutose) 15 gm Q15M PRN PO DECREASED GLUCOSE; Start 08/25/17 at 14:00 Glucose (Glutose) 22.5 gm Q15M PRN PO DECREASED GLUCOSE; Start 08/25/17 at 14: 00 Dextrose (D50w Syringe) 25 ml Q15M PRN IV DECREASED GLUCOSE Last administered on 08/27/17 18:20; Admin Dose 25 ML; Start 08/25/17 at 14:00 Dextrose (D50w Syringe) 50 ml Q15M PRN IV DECREASED GLUCOSE; Start 08/25/17 at 14:00 Glucagon (Glucagen) 1 mg Q15M PRN IM DECREASED GLUCOSE; Start 08/25/17 at 14: 00 Glucose (Glutose) 15 gm Q15M PRN BUCCAL DECREASED GLUCOSE; Start 08/25/17 at 14:00 Acetaminophen (Tylenol Tab) 650 mg Q4H PRN PO PAIN AND OR ELEVATED TEMP Last administered on 08/26/17 17:06; Admin Dose 650 MG; Start 08/25/17 at 20:30 Filgrastim 480 mcg 480 mcg DAILY@17 SC Last administered on 09/01/17 17:47; Admin Dose 480 MCG; Start 08/27/17 at 17:00 Fluconazole (Diflucan 200 Mg/ NS (Pmx)) 100 ml @ 100 mls/hr Q24H IVPB Last administered on 09/02/17 13:06; Admin Dose 100 MLS/HR; Start 08/27/17 at 13: 00 Insulin Glargine (Lantus) 9 unit DAILY@10 SC Last administered on 09/02/17 10 :38; Admin Dose 9 UNIT; Start 08/28/17 at 10:00 Miscellaneous Medication (Bax Susp) 10 ml TID PO Last administered on 13:06; Admin Dose 10 ML; Start 08/29/17 at 13:00 Citric Acid/ Sodium Citrate (Bicitra) 30 ml TID PO Last administered on 13:06; Admin Dose 30 ML; Start 08/29/17 at 21:00 Lidocaine 15 ml 15 ml QID PO Last administered on 09/02/17 13:06; Admin Dose 15 ML; Start 08/30/17 at 21:00; Stop 09/06/17 at 21:00 Leucovorin Calcium/Dextrose (Leucovorin Calcium Inj/D5W) 50 ml @ 200 mls/hr Q6H IV Last administered on 09/02/17 11:35; Admin Dose 200 MLS/HR; Start at 22:00 Morphine Sulfate 1 mg 1 mg Q4H PRN IV LESS THAN 5/10 PAIN Last administered on 09/01/17 13:10; Admin Dose 1 MG; Start 08/30/17 at 20:00 Cefepime HCl (Maxipime 1gm/50 ml (Pmx)) 50 ml @ 100 mls/hr Q24H IVPB Last administered on 09/02/17 08:58; Admin Dose 100 MLS/HR; Start 09/02/17 at 09: 00 Hydralazine HCl 10 mg 10 mg Q6H PRN IV ELEVATED SYSTOLIC BP Last administered on 09/01/17 21:40; Admin Dose 10 MG; Start 09/01/17 at 21:30 Daptomycin/Sodium Chloride (Cubicin/NS) 100 ml @ 200 mls/hr Q48H IVPB ; Start 09/02/17 at 15:00 SARY DUQUE MD Sep 02, 2017 14:50
--- NOTE | 2017-09-02 15:18 | PN ---
Date/Time of Note Date/Time of Note DATE: 09/02/17 TIME: 15:16 Assessment/Plan Lines/Catheters IV Catheter Type (from [facility]): Peripheral IV Reina in Place (from [facility]): Yes Assessment/Plan Chief Complaint/Hosp Course -Bilateral lower extremity atherosclerosis with left lower extremity diabetic foot infection. It seems that the patient had developed significant infection of the left lower extremity that is currently being treated by antibiotics. No current vascular intervention needed as the patient has not developed any gangrene or ulcers and cellulitis is improving. -Continue to follow her as outpt given her LE atherosclerotic disease -Appreciate General surgery evaluation -CT scan of the left lower extremity demonstrated edema. -Discussed findings, plan and management with the patient with a certified counter hop and she understands. However, the patient is unable to explain why she is on methotrexate and what condition was being treated for her to be placed on that medication and how long she has been on it. -Optimize vascular status (BP meds, diet, nutrition, exercise, sugar control, antiplatelets). -Thank you for allowing us to partake in the care of your patient. Please call with any questions. Problems: Subjective 24 Hr Interval Summary NO NEW VASCULARE EVENTS OVERNIGHT Exam/Review of Systems Vital Signs Vitals Vital Signs Date Time Temp Pulse Resp B/P Pulse Ox O2 Delivery O2 Flow Rate FiO2 09/02/17 13:10 98.2 95 22 160/70 98 2.0 95 09/02/17 12:25 Nasal Cannula 09/01/17 21:24 21 Intake and Output 09/01/17 09/01/17 09/02/17 15:00 23:00 07:00 Intake Total 50 ml 1222 ml 170 ml Output Total 800 ml 500 ml Balance 50 ml 422 ml -330 ml Exam Free Text/Dictation GENERAL: Alert and oriented x3, language barrier, despite certified counter hop. PULMONARY: Clear to auscultation bilaterally CARDIOVASCULAR: S1, S2 present ABDOMEN: Soft, nontender, nondistended. Bowel sounds positive. Truncal obesity. EXTREMITIES: Right lower extremity palpable femoral pulse, nonpalpable pedal pulse. Motor, sensory intact. Cap refill 3 seconds. Left lower extremity palpable femoral pulse, nonpalpable pedal pulse. Edema of 2 to 3+, erythema extending from the ankle up to the knee with superficial skin loss improved. Tenderness upon palpation near the ankle area improved Results Result Diagram: 10/19/17 0532 09/02/17 0532 MOOK SPEARS MD Sep 02, 2017 15:18
--- NOTE | 2017-09-02 15:18 | PN ---
Date/Time of Note Date/Time of Note DATE: 09/02/17 TIME: 15:16 Assessment/Plan Lines/Catheters IV Catheter Type (from [facility]): Peripheral IV Reina in Place (from [facility]): Yes Assessment/Plan Chief Complaint/Hosp Course -Bilateral lower extremity atherosclerosis with left lower extremity diabetic foot infection. It seems that the patient had developed significant infection of the left lower extremity that is currently being treated by antibiotics. No current vascular intervention needed as the patient has not developed any gangrene or ulcers and cellulitis is improving. -Continue to follow her as outpt given her LE atherosclerotic disease -Appreciate General surgery evaluation -CT scan of the left lower extremity demonstrated edema. -Discussed findings, plan and management with the patient with a certified media arts professor and she understands. However, the patient is unable to explain why she is on methotrexate and what condition was being treated for her to be placed on that medication and how long she has been on it. -Optimize vascular status (BP meds, diet, nutrition, exercise, sugar control, antiplatelets). -Thank you for allowing us to partake in the care of your patient. Please call with any questions. Problems: Subjective 24 Hr Interval Summary NO NEW VASCULARE EVENTS OVERNIGHT Exam/Review of Systems Vital Signs Vitals Vital Signs Date Time Temp Pulse Resp B/P Pulse Ox O2 Delivery O2 Flow Rate FiO2 09/02/17 13:10 98.2 95 22 160/70 98 2.0 95 09/02/17 12:25 Nasal Cannula 09/01/17 21:24 21 Intake and Output 09/01/17 09/01/17 09/02/17 15:00 23:00 07:00 Intake Total 50 ml 1222 ml 170 ml Output Total 800 ml 500 ml Balance 50 ml 422 ml -330 ml Exam Free Text/Dictation GENERAL: Alert and oriented x3, language barrier, despite certified media arts professor. PULMONARY: Clear to auscultation bilaterally CARDIOVASCULAR: S1, S2 present ABDOMEN: Soft, nontender, nondistended. Bowel sounds positive. Truncal obesity. EXTREMITIES: Right lower extremity palpable femoral pulse, nonpalpable pedal pulse. Motor, sensory intact. Cap refill 3 seconds. Left lower extremity palpable femoral pulse, nonpalpable pedal pulse. Edema of 2 to 3+, erythema extending from the ankle up to the knee with superficial skin loss improved. Tenderness upon palpation near the ankle area improved Results Result Diagram: 10/19/17 0532 09/02/17 0532 MOOK SPEARS MD Sep 02, 2017 15:18
--- NOTE | 2017-09-02 15:18 | PN ---
Date/Time of Note Date/Time of Note DATE: 09/02/17 TIME: 15:16 Assessment/Plan Lines/Catheters IV Catheter Type (from [facility]): Peripheral IV Reina in Place (from [facility]): Yes Assessment/Plan Chief Complaint/Hosp Course -Bilateral lower extremity atherosclerosis with left lower extremity diabetic foot infection. It seems that the patient had developed significant infection of the left lower extremity that is currently being treated by antibiotics. No current vascular intervention needed as the patient has not developed any gangrene or ulcers and cellulitis is improving. -Continue to follow her as outpt given her LE atherosclerotic disease -Appreciate General surgery evaluation -CT scan of the left lower extremity demonstrated edema. -Discussed findings, plan and management with the patient with a certified linen room custodian and she understands. However, the patient is unable to explain why she is on methotrexate and what condition was being treated for her to be placed on that medication and how long she has been on it. -Optimize vascular status (BP meds, diet, nutrition, exercise, sugar control, antiplatelets). -Thank you for allowing us to partake in the care of your patient. Please call with any questions. Problems: Subjective 24 Hr Interval Summary NO NEW VASCULARE EVENTS OVERNIGHT Exam/Review of Systems Vital Signs Vitals Vital Signs Date Time Temp Pulse Resp B/P Pulse Ox O2 Delivery O2 Flow Rate FiO2 09/02/17 13:10 98.2 95 22 160/70 98 2.0 95 09/02/17 12:25 Nasal Cannula 09/01/17 21:24 21 Intake and Output 09/01/17 09/01/17 09/02/17 15:00 23:00 07:00 Intake Total 50 ml 1222 ml 170 ml Output Total 800 ml 500 ml Balance 50 ml 422 ml -330 ml Exam Free Text/Dictation GENERAL: Alert and oriented x3, language barrier, despite certified linen room custodian. PULMONARY: Clear to auscultation bilaterally CARDIOVASCULAR: S1, S2 present ABDOMEN: Soft, nontender, nondistended. Bowel sounds positive. Truncal obesity. EXTREMITIES: Right lower extremity palpable femoral pulse, nonpalpable pedal pulse. Motor, sensory intact. Cap refill 3 seconds. Left lower extremity palpable femoral pulse, nonpalpable pedal pulse. Edema of 2 to 3+, erythema extending from the ankle up to the knee with superficial skin loss improved. Tenderness upon palpation near the ankle area improved Results Result Diagram: 10/19/17 0532 09/02/17 0532 MOOK SPEARS MD Sep 02, 2017 15:18
--- NOTE | 2017-09-02 16:34 | PN ---
Date/Time of Note Date/Time of Note DATE: 09/02/17 TIME: 16:30 Assessment/Plan VTE Prophylaxis VTE Prophylaxis Intervention: contraindicated Lines/Catheters IV Catheter Type (from Nrsg): Peripheral IV Urinary Cath still in place: Yes Reason Cath still needed: other (indicate) Assessment/Plan Assessment/Plan 1. Pancytopenia - Hematology on board and recommendations appreciated. Continue current management at this time - Hgb stable this am but platelets this am were 6. Transfused 2 unit of platelets and will continue to monitor. - s/p blood transfusions and plt transfusions. - obtained PCP phone number and will contact to find out why on methotrexate. - Once plt more stable, will need to address with Heme if bone marrow biopsy is warranted 2. Mucositis 2/2 methotrexate use - lidocaine viscous and diphen/lido/mal oral solution ordered. Morphine if pain remain intolerable for PO intake - Tolerating PO diet 3. Left lower extremity cellulitis - ID and Surgery on board. Recommendations appreciated - Will continue current management and advised to keep leg elevated - CT LE showed cellulitis and no evidence of osteomyelitis. Xray LE also performed and no osteomyelitis appreciated. 4. Vascular insufficiency - Vascular surgery on board and recommendations appreciated. No current vascular intervention as the patient has not developed any gangrene or ulcers - Will need to follow up as outpatient due to LE atherosclerosis 5. Neutropenia- resolving - On Neupogen and WBC 10 this am. - Heme on board and recommendations appreciated 6. BK vs BK on CKD - Nephrology on board and recommendations appreciated. - Cr improving - Monitor UOP - HIV negative, KASSY negative 7. Hypokalemia - resolved 8. Eosinophilia - trending down after Sulfasalazine stopped 9. Disposition - Will continue monitoring on Med/Surg Subjective 24 Hr Interval Summary Free Text/Dictation Patient is more comfortable today and able to tolerate pureed diet and protein supplements. Daughter at bedside and patients condition explained. Patient states LLE is feeling better and shes keeping elevated. She states she still has pain in her mouth but is improving. Platelet this am were 6 and Hgb 7.2. Exam/Review of Systems Vital Signs Vitals Vital Signs Date Time Temp Pulse Resp B/P Pulse Ox O2 Delivery O2 Flow Rate FiO2 09/02/17 13:10 98.2 95 22 160/70 98 2.0 95 09/02/17 12:25 Nasal Cannula 09/01/17 21:24 21 Intake and Output 10/18/17 10/18/17 10/19/17 15:00 23:00 07:00 Intake Total 50 ml 1222 ml 170 ml Output Total 800 ml 500 ml Balance 50 ml 422 ml -330 ml Exam Gen : Flat affect, improvement in mucositis and bleeding lower lip, no acute bleeding appreciated HEENT: NC/AT, EOM intact, PERRL Neck: Supple, full ROM Respiratory: CTAB, slight expiratory wheezes, no crackles Cardiovascular: nl pulses, regular rate and rhythm. no murmurs Gastrointestinal: Soft, NT, no rebound or guarding. non distended Extremities: LLE erythema, warmth, and tenderness- improving. Dry skin with chronic hyperpigmentation Results Result Diagram: 09/02/17 0532 09/02/17 0532 Results 24 hrs Laboratory Tests Test 09/01/17 17:40 09/01/17 21:46 09/02/17 05:32 09/02/17 06:39 Bedside Glucose 143 157 White Blood Count 10.3 # Red Blood Count 2.46 L Hemoglobin 7.2 L Hematocrit 22.1 L Mean Corpuscular Volume 89.8 Mean Corpuscular Hemoglobin 29.3 Mean Corpuscular Hemoglobin Concent 32.6 Red Cell Distribution Width 15.8 H Platelet Count 6 #*L Mean Platelet Volume Neutrophils % Segmented Neutrophils % (Manual) 41 Band Neutrophils % (Manual) 16 H Lymphocytes % Lymphocytes % (Manual) 24 Reactive Lymphocytes % (Manual) 5 H Monocytes % Monocytes % (Manual) 10 Eosinophils % Eosinophils % (Manual) 2 Basophils % Metamyelocytes % (manual) 2 H Promyelocytes % (Manual) 1 H Nucleated Red Blood Cells % 0.7 H Neutrophils # Neutrophils # (Manual) 4.4 Band Neutrophils # 1.6 H Absolute Lymphocytes (Manual) 2.4 Lymphocytes # Reactive Lymphocytes # 0.5 H Monocytes # Absolute Monocytes (Manual) 1.0 H Eosinophils # Basophils # Metamyelocytes # 0.2 H Promyelocytes # 0.1 H Nucleated Red Blood Cells # Platelet Estimate SIG DECREASED Giant Platelets 1 H Polychromasia 3+ Poikilocytosis 2+ Anisocytosis 1+ Sodium Level 139 Potassium Level 3.9 Chloride Level 114 H Carbon Dioxide Level 16 L Anion Gap 13 Blood Urea Nitrogen 33 H Creatinine 2.49 H Glucose Level 151 Calcium Level 7.9 L Magnesium Level 2.0 Total Bilirubin 0.7 Direct Bilirubin 0.70 H Indirect Bilirubin 0.0 Aspartate Amino Transf (AST/SGOT) 41 Alanine Aminotransferase (ALT/SGPT) 42 Alkaline Phosphatase 263 H Total Protein 5.8 L Albumin 2.4 L Globulin 3.40 H Albumin/Globulin Ratio 0.70 Lab Scanned Report REFERENCE LAB Test 09/02/17 08:06 09/02/17 10:20 09/02/17 12:24 Bedside Glucose 163 160 119 Medications Medications Current Medications Ondansetron HCl (Zofran Inj) 4 mg Q6H PRN IV NAUSEA AND/OR VOMITING Last administered on 08/29/17 08:36; Admin Dose 4 MG; Start 08/25/17 at 08:00 Morphine Sulfate (morphine) 2 mg Q4H PRN IV PAIN Last administered on 09/01/17 20:06; Admin Dose 2 MG; Start 08/25/17 at 08:00 Amlodipine Besylate (Norvasc) 5 mg DAILY PO Last administered on 09/02/17 10: 58; Admin Dose 5 MG; Start 08/25/17 at 09:00 Bisoprolol Fumarate (Zebeta) 10 mg DAILY PO Last administered on 09/02/17 09: 27; Admin Dose 10 MG; Start 08/25/17 at 09:00 Loratadine (Claritin) 10 mg DAILY PO Last administered on 09/02/17 10:57; Admin Dose 10 MG; Start 08/25/17 at 09:00 Losartan Potassium (Cozaar) 50 mg DAILY PO Last administered on 09/02/17 10: 56; Admin Dose 50 MG; Start 08/25/17 at 09:00 Diagnostic Test (Pha) (Accu-Chek) 1 ea 02 XX ; Start 08/26/17 at 02:00 Miscellaneous Information 1 ea NOTE XX ; Start 08/25/17 at 14:00 Glucose (Glutose) 15 gm Q15M PRN PO DECREASED GLUCOSE; Start 08/25/17 at 14:00 Glucose (Glutose) 22.5 gm Q15M PRN PO DECREASED GLUCOSE; Start 08/25/17 at 14: 00 Dextrose (D50w Syringe) 25 ml Q15M PRN IV DECREASED GLUCOSE Last administered on 08/27/17 18:20; Admin Dose 25 ML; Start 08/25/17 at 14:00 Dextrose (D50w Syringe) 50 ml Q15M PRN IV DECREASED GLUCOSE; Start 08/25/17 at 14:00 Glucagon (Glucagen) 1 mg Q15M PRN IM DECREASED GLUCOSE; Start 08/25/17 at 14: 00 Glucose (Glutose) 15 gm Q15M PRN BUCCAL DECREASED GLUCOSE; Start 08/25/17 at 14:00 Acetaminophen (Tylenol Tab) 650 mg Q4H PRN PO PAIN AND OR ELEVATED TEMP Last administered on 08/26/17 17:06; Admin Dose 650 MG; Start 08/25/17 at 20:30 Filgrastim 480 mcg 480 mcg DAILY@17 SC Last administered on 09/01/17 17:47; Admin Dose 480 MCG; Start 08/27/17 at 17:00 Fluconazole (Diflucan 200 Mg/ NS (Pmx)) 100 ml @ 100 mls/hr Q24H IVPB Last administered on 09/02/17 13:06; Admin Dose 100 MLS/HR; Start 08/27/17 at 13: 00 Insulin Glargine (Lantus) 9 unit DAILY@10 SC Last administered on 09/02/17 10 :38; Admin Dose 9 UNIT; Start 08/28/17 at 10:00 Miscellaneous Medication (Bax Susp) 10 ml TID PO Last administered on 13:06; Admin Dose 10 ML; Start 08/29/17 at 13:00 Citric Acid/ Sodium Citrate (Bicitra) 30 ml TID PO Last administered on 13:06; Admin Dose 30 ML; Start 08/29/17 at 21:00 Lidocaine 15 ml 15 ml QID PO Last administered on 09/02/17 13:06; Admin Dose 15 ML; Start 08/30/17 at 21:00; Stop 09/06/17 at 21:00 Leucovorin Calcium/Dextrose (Leucovorin Calcium Inj/D5W) 50 ml @ 200 mls/hr Q6H IV Last administered on 09/02/17 11:35; Admin Dose 200 MLS/HR; Start at 22:00 Morphine Sulfate 1 mg 1 mg Q4H PRN IV LESS THAN 5/10 PAIN Last administered on 09/01/17 13:10; Admin Dose 1 MG; Start 08/30/17 at 20:00 Cefepime HCl (Maxipime 1gm/50 ml (Pmx)) 50 ml @ 100 mls/hr Q24H IVPB Last administered on 09/02/17 08:58; Admin Dose 100 MLS/HR; Start 09/02/17 at 09: 00 Hydralazine HCl 10 mg 10 mg Q6H PRN IV ELEVATED SYSTOLIC BP Last administered on 09/01/17 21:40; Admin Dose 10 MG; Start 09/01/17 at 21:30 Daptomycin/Sodium Chloride (Cubicin/NS) 100 ml @ 200 mls/hr Q48H IVPB ; Start 09/02/17 at 15:00 JOANA BARKLEY MD Sep 02, 2017 16:34
--- NOTE | 2017-09-02 17:33 | PN ---
Date/Time of Note Date/Time of Note DATE: 09/02/17 TIME: 17:28 Assessment/Plan Lines/Catheters IV Catheter Type (from [facility]): Peripheral IV Reina in Place (from [facility]): Yes Assessment/Plan Chief Complaint/Hosp Course 1. Left lower extremity cellulitis and edema with history of diabetes; No weeping/open areas; minimally improved; CT lower extremity: no abscess -IV antibiotics -Elevate above heart level 2. Pancytopenia with history of unknown reason for methotrexate therapy -per heme 3. Diabetes -Nutrition medication optimization -Encourage weight loss 4. Hypertension -Nutrition medication optimization -Encourage weight loss 5. Chronic kidney disease: cr improving -Judicious fluid management -Avoid nephrotoxic agents 6. Abnormal LFTs of unknown etiology may be secondary to fatty liver -Monitor 7. Hypoalbuminemia with hypocalcemia -Nutritional optimization Thank you. Patient seen and examined in collaboration with Dr. William Russ. Problems: Subjective 24 Hr Interval Summary Pancytopenia continues. S/p 2 units platelets. No acute bleed. Left leg swelling improved. No fevers, chills, sob, congested cough, n/v/d/dysuria. Exam/Review of Systems Vital Signs Vitals Vital Signs Date Time Temp Pulse Resp B/P Pulse Ox O2 Delivery O2 Flow Rate FiO2 09/02/17 16:50 2.0 09/02/17 16:49 93 26 100 Nasal Cannula 09/02/17 13:10 98.2 160/70 09/01/17 21:24 21 Intake and Output 09/01/17 09/01/17 09/02/17 15:00 23:00 07:00 Intake Total 50 ml 1222 ml 170 ml Output Total 800 ml 500 ml Balance 50 ml 422 ml -330 ml Exam Free Text/Dictation Constitutional: obese, other (Awake), No distress Psych: nl mood/affect, No anxiety Head: atraumatic, normocephalic Eyes: EOMI, PERRL, nl conjunctiva, No icteric ENMT: mucosa pink and dry, nl external ears & nose, nl lips & teeth Neck: non-tender, supple, No jvd Respiratory: normal air movement, No congested cough, No labored breathing, No wheezing Cardiovascular: edema (Left lower extremity- improving), regular rate and rhythm Gastrointestinal: non-tender, soft, No rebound or guarding Musculoskeletal: joint tenderness (Left ankle), No nl extremities to inspection Extremities: edema, normal pulses, pitting pedal edema, tenderness, No calf tenderness Neurological: nl mental status, nl strength Skin: rash or lesions (Left lower extremity-discoloration), No diaphoresis, No nl turgor Lymph: nl lymph nodes, nontender Results Result Diagram: 09/02/17 0532 09/02/17 0532 EDMUND KINCAID NP Sep 02, 2017 17:33
[2017-09-02] MEDS: DAPTOMYCIN 300 MG in SOD CHLORIDE 0.9% 100 ML IVPB SCH (17:42)
[2017-09-02] MEDS: FILGRASTIM 480 MCG INJ SC SCH (17:44)
[2017-09-02 20:00] VITALS: BP 171/78; RESP 18
[2017-09-02] MEDS: ONDANSETRON 4 MG INJ IV PRN (21:38)
[2017-09-02] MEDS: hydrALAzine 20 MG INJ IV PRN (21:39)
[2017-09-03] MEDS: ALBUTEROL/IPRATROPIUM (NEB) 3 ML AMP HHN SCH ×6 (00:54→21:40)
[2017-09-03 02:00] VITALS: BP 163/70; RESP 20
[2017-09-03] MEDS: ACCU-CHEK XX SCH (02:00)
[2017-09-03] MEDS: DEXTROSE 5% IV SCH ×4 (04:35→22:19)
[2017-09-03] MEDS: LEUCOVORIN CALCIUM IV SCH ×4 (04:35→22:19)
[2017-09-03 07:15] VITALS: BP 157/68; PULSE 95; RESP 22
[2017-09-03] MEDS: INSULIN ASPART [NOVOLOG] 3 ML PEN SC SCH ×7 (08:15→20:55)
[2017-09-03] MEDS: CEFEPIME 1GM/50 ML (PMX) 50 ML IVPB SCH (08:18)
[2017-09-03] MEDS: AMLODIPINE 5 MG TAB PO SCH (09:00)
[2017-09-03] MEDS: DIPHENHYD/MYLANTA/LIDO (PO SYG) PO SCH ×4 (09:00→20:47)
[2017-09-03] MEDS: CITRIC ACID/NA CITRATE 30 ML CUP PO SCH ×4 (09:00→20:46)
[2017-09-03] MEDS: LIDOCAINE 2% VISC 15 ML CUP PO SCH ×5 (09:00→20:47)
--- NOTE | 2017-09-03 09:14 | PN ---
Date/Time of Note Date/Time of Note DATE: 09/03/17 TIME: 09:09 Assessment/Plan VTE Prophylaxis VTE Prophylaxis Intervention: other (thrombocytopenia) Lines/Catheters IV C[facility] Type (from [facility] Peripheral IV Urinary Cath still in place: Yes Reason Cath still needed: other (indicate) (debility) Assessment/Plan Chief Complaint/Hosp Course Unable to converse fully due to language issue. I have spoken to Dr. Rocha and reviewed chart. 61 yo woman admitted for cellulitis of lower left leg. History of diabetes, hypertension, obesity, azotemia, abnormal liver studies and methotrexate administration for unclear diagnosis ( leg pain). Problems: Assessment/Plan Cellulitic area is improving. WBC is now elevated >20K, so I will stop Neupogen. Platelets are higher but she got transfusion. Anemia still present. Cr is improved but still elevated. I will check EPO assay but she may benefit from Procrit. Counts may improve with cessation of methotrexate, improved nutrition and resolution of the cellulitis. If not, bone marrow biopsy would be indicated. Subjective 24 Hr Interval Summary Free Text/Dictation Pt more alert and comfortable appearing. Exam/Review of Systems Vital Signs Vitals Vital Signs Date Time Temp Pulse Resp B/P Pulse Ox O2 Delivery O2 Flow Rate FiO2 09/03/17 09:02 2.0 09/03/17 09:00 91 28 99 09/03/17 07:15 98.7 157/68 Nasal Cannula 09/01/17 21:24 21 Intake and Output 09/02/17 09/02/17 09/03/17 15:00 23:00 07:00 Intake Total 300 ml 674 ml Output Total 600 ml Balance 300 ml 74 ml Exam Constitutional: alert Head: normocephalic Eyes: other (pallor) Neck: supple Respiratory: clear to auscultation Cardiovascular: regular rate and rhythm Gastrointestinal: soft Extremities: other (cellulitis area is less tense and is now scaling) Results Result Diagram: 09/03/17 0509 09/03/17 0459 Results 24 hrs Laboratory Tests Test 09/02/17 10:20 09/02/17 12:24 09/02/17 17:19 09/02/17 21:32 Bedside Glucose 160 119 94 107 Test 09/03/17 04:59 09/03/17 05:01 09/03/17 05:31 09/03/17 08:16 Sodium Level 137 Potassium Level 3.8 Chloride Level 111 H Carbon Dioxide Level 18 L Anion Gap 12 Blood Urea Nitrogen 32 H Creatinine 2.37 H Glucose Level 108 # Calcium Level 8.1 L Phosphorus Level 3.1 Magnesium Level 2.0 Albumin 2.7 L White Blood Count 23.4 #H Red Blood Count 2.38 L Hemoglobin 7.0 L Hematocrit 21.2 L Mean Corpuscular Volume 89.1 Mean Corpuscular Hemoglobin 29.4 Mean Corpuscular Hemoglobin Concent 33.0 Red Cell Distribution Width 16.4 H Platelet Count 87 #L Mean Platelet Volume 11.9 H Neutrophils % Lymphocytes % Monocytes % Eosinophils % Basophils % Nucleated Red Blood Cells % 1.1 H Neutrophils # Lymphocytes # Monocytes # Eosinophils # Basophils # Nucleated Red Blood Cells # Lab Scanned Report BLOOD TRANSFUSION Bedside Glucose 120 Medications Medications Current Medications Ondansetron HCl (Zofran Inj) 4 mg Q6H PRN IV NAUSEA AND/OR VOMITING Last administered on 09/02/17 21:38; Admin Dose 4 MG; Start 08/25/17 at 08:00 Morphine Sulfate (morphine) 2 mg Q4H PRN IV PAIN Last administered on 09/01/17 20:06; Admin Dose 2 MG; Start 08/25/17 at 08:00 Amlodipine Besylate (Norvasc) 5 mg DAILY PO Last administered on 09/02/17 10: 58; Admin Dose 5 MG; Start 08/25/17 at 09:00 Bisoprolol Fumarate (Zebeta) 10 mg DAILY PO Last administered on 09/02/17 09: 27; Admin Dose 10 MG; Start 08/25/17 at 09:00 Loratadine (Claritin) 10 mg DAILY PO Last administered on 09/02/17 10:57; Admin Dose 10 MG; Start 08/25/17 at 09:00 Losartan Potassium (Cozaar) 50 mg DAILY PO Last administered on 09/02/17 10: 56; Admin Dose 50 MG; Start 08/25/17 at 09:00 Diagnostic Test (Pha) (Accu-Chek) 1 ea 02 XX ; Start 08/26/17 at 02:00 Miscellaneous Information 1 ea NOTE XX ; Start 08/25/17 at 14:00 Glucose (Glutose) 15 gm Q15M PRN PO DECREASED GLUCOSE; Start 08/25/17 at 14:00 Glucose (Glutose) 22.5 gm Q15M PRN PO DECREASED GLUCOSE; Start 08/25/17 at 14: 00 Dextrose (D50w Syringe) 25 ml Q15M PRN IV DECREASED GLUCOSE Last administered on 08/27/17 18:20; Admin Dose 25 ML; Start 08/25/17 at 14:00 Dextrose (D50w Syringe) 50 ml Q15M PRN IV DECREASED GLUCOSE; Start 08/25/17 at 14:00 Glucagon (Glucagen) 1 mg Q15M PRN IM DECREASED GLUCOSE; Start 08/25/17 at 14: 00 Glucose (Glutose) 15 gm Q15M PRN BUCCAL DECREASED GLUCOSE; Start 08/25/17 at 14:00 Acetaminophen (Tylenol Tab) 650 mg Q4H PRN PO PAIN AND OR ELEVATED TEMP Last administered on 08/26/17 17:06; Admin Dose 650 MG; Start 08/25/17 at 20:30 Filgrastim 480 mcg 480 mcg DAILY@17 SC Last administered on 09/02/17 17:44; Admin Dose 480 MCG; Start 08/27/17 at 17:00 Fluconazole (Diflucan 200 Mg/ NS (Pmx)) 100 ml @ 100 mls/hr Q24H IVPB Last administered on 09/02/17 13:06; Admin Dose 100 MLS/HR; Start 08/27/17 at 13: 00 Insulin Glargine (Lantus) 9 unit DAILY@10 SC Last administered on 09/02/17 10 :38; Admin Dose 9 UNIT; Start 08/28/17 at 10:00 Miscellaneous Medication (Bax Susp) 10 ml TID PO Last administered on 21:23; Admin Dose 10 ML; Start 08/29/17 at 13:00 Citric Acid/ Sodium Citrate (Bicitra) 30 ml TID PO Last administered on 13:06; Admin Dose 30 ML; Start 08/29/17 at 21:00 Lidocaine 15 ml 15 ml QID PO Last administered on 09/02/17 21:23; Admin Dose 15 ML; Start 08/30/17 at 21:00; Stop 09/06/17 at 21:00 Leucovorin Calcium/Dextrose (Leucovorin Calcium Inj/D5W) 50 ml @ 200 mls/hr Q6H IV Last administered on 09/03/17 04:35; Admin Dose 200 MLS/HR; Start at 22:00 Morphine Sulfate 1 mg 1 mg Q4H PRN IV LESS THAN 5/10 PAIN Last administered on 09/01/17 13:10; Admin Dose 1 MG; Start 08/30/17 at 20:00 Cefepime HCl (Maxipime 1gm/50 ml (Pmx)) 50 ml @ 100 mls/hr Q24H IVPB Last administered on 09/03/17 08:18; Admin Dose 100 MLS/HR; Start 09/02/17 at 09: 00 Hydralazine HCl 10 mg 10 mg Q6H PRN IV ELEVATED SYSTOLIC BP Last administered on 09/02/17 21:39; Admin Dose 10 MG; Start 09/01/17 at 21:30 Daptomycin/Sodium Chloride (Cubicin/NS) 100 ml @ 200 mls/hr Q48H IVPB Last administered on 09/02/17 17:42; Admin Dose 200 MLS/HR; Start 09/02/17 at 15: 00 SARY DUQUE MD Sep 03, 2017 09:14
--- NOTE | 2017-09-03 09:35 | PN ---
Date/Time of Note Date/Time of Note DATE: 09/03/17 TIME: 09:30 Assessment/Plan VTE Prophylaxis VTE Prophylaxis Intervention: contraindicated Lines/Catheters IV Catheter Type (from [facility]): Peripheral IV Urinary Cath still in place: Yes Reason Cath still needed: skin wounds contaminated by urine Assessment/Plan Assessment/Plan 1. Pancytopenia - Hematology on board and recommendations appreciated. Continue current management at this time and will check EPO to assess if would benefit from epogen. If counts do not improve and still requiring transfusions, considering BM bx - Hgb 7 and will transfused 1 unit of PRBC. Plt improved after transfusions - s/p multiple blood transfusions and plt transfusions. - obtained PCP phone number and will contact to find out why on methotrexate. 2. Mucositis 2/2 methotrexate use - lidocaine viscous and diphen/lido/mal oral solution ordered. Morphine if pain remain intolerable for PO intake - Tolerating pureed diet and will advance as tolerated 3. Left lower extremity cellulitis - ID and Surgery on board. Recommendations appreciated - Antibiotic changed to Daptomycin and advised to keep leg elevated - CT LE showed cellulitis and no evidence of osteomyelitis. Xray LE also performed and no osteomyelitis appreciated. 4. Vascular insufficiency - Vascular surgery on board and recommendations appreciated. No current vascular intervention as the patient has not developed any gangrene or ulcers - Will need to follow up as outpatient due to LE atherosclerosis 5. Neutropenia- resolved - WBC >20 and Neupogen stopped - Will continue to monitor - Heme on board and recommendations appreciated 6. BK vs BK on CKD - Nephrology on board and recommendations appreciated. - Cr improving - Monitor UOP - HIV negative, KASSY negative 7. Hypokalemia - resolved 8. Eosinophilia - normalized after d/c sulfasalazine and mtx 9. Disposition - Will continue monitoring on Med/Surg Subjective 24 Hr Interval Summary Free Text/Dictation Patient appears more comfortable and tolerating pureed meals and protein supplements. LLL appears to be stable. No acute overnight events. Exam/Review of Systems Vital Signs Vitals Vital Signs Date Time Temp Pulse Resp B/P Pulse Ox O2 Delivery O2 Flow Rate FiO2 09/03/17 09:14 Nasal Cannula 2.0 09/03/17 09:00 91 28 99 09/03/17 07:15 98.7 157/68 09/01/17 21:24 21 Intake and Output 09/02/17 09/02/17 09/03/17 15:00 23:00 07:00 Intake Total 300 ml 674 ml Output Total 600 ml Balance 300 ml 74 ml Exam Gen : Flat affect, improvement in mucositis and bleeding lower lip, HEENT: NC/AT, EOM intact, PERRL Neck: Supple, full ROM Respiratory: CTAB, slight expiratory wheezes, no crackles Cardiovascular: nl pulses, regular rate and rhythm. no murmurs Gastrointestinal: Soft, NT, no rebound or guarding. non distended Extremities: LLE erythema, warmth, and tenderness- improving. Dry skin with chronic hyperpigmentation Results Result Diagram: 09/03/17 0501 09/03/17 0459 Results 24 hrs Laboratory Tests Test 09/02/17 10:20 09/02/17 12:24 09/02/17 17:19 09/02/17 21:32 Bedside Glucose 160 119 94 107 Test 09/03/17 04:59 09/03/17 05:01 09/03/17 05:31 09/03/17 08:16 Sodium Level 137 Potassium Level 3.8 Chloride Level 111 H Carbon Dioxide Level 18 L Anion Gap 12 Blood Urea Nitrogen 32 H Creatinine 2.37 H Glucose Level 108 # Calcium Level 8.1 L Phosphorus Level 3.1 Magnesium Level 2.0 Albumin 2.7 L White Blood Count 23.4 #H Red Blood Count 2.38 L Hemoglobin 7.0 L Hematocrit 21.2 L Mean Corpuscular Volume 89.1 Mean Corpuscular Hemoglobin 29.4 Mean Corpuscular Hemoglobin Concent 33.0 Red Cell Distribution Width 16.4 H Platelet Count 87 #L Mean Platelet Volume 11.9 H Neutrophils % Lymphocytes % Monocytes % Eosinophils % Basophils % Nucleated Red Blood Cells % 1.1 H Neutrophils # Lymphocytes # Monocytes # Eosinophils # Basophils # Nucleated Red Blood Cells # Lab Scanned Report BLOOD TRANSFUSION Bedside Glucose 120 Medications Medications Current Medications Ondansetron HCl (Zofran Inj) 4 mg Q6H PRN IV NAUSEA AND/OR VOMITING Last administered on 09/02/17 21:38; Admin Dose 4 MG; Start 08/25/17 at 08:00 Morphine Sulfate (morphine) 2 mg Q4H PRN IV 5-10 PAIN Last administered on 09/01/17 20:06; Admin Dose 2 MG; Start 08/25/17 at 08:00 Amlodipine Besylate (Norvasc) 5 mg DAILY PO Last administered on 09/02/17 10: 58; Admin Dose 5 MG; Start 08/25/17 at 09:00 Bisoprolol Fumarate (Zebeta) 10 mg DAILY PO Last administered on 09/02/17 09: 27; Admin Dose 10 MG; Start 08/25/17 at 09:00 Loratadine (Claritin) 10 mg DAILY PO Last administered on 09/02/17 10:57; Admin Dose 10 MG; Start 08/25/17 at 09:00 Losartan Potassium (Cozaar) 50 mg DAILY PO Last administered on 09/02/17 10: 56; Admin Dose 50 MG; Start 08/25/17 at 09:00 Diagnostic Test (Pha) (Accu-Chek) 1 ea 02 XX ; Start 08/26/17 at 02:00 Miscellaneous Information 1 ea NOTE XX ; Start 08/25/17 at 14:00 Glucose (Glutose) 15 gm Q15M PRN PO DECREASED GLUCOSE; Start 08/25/17 at 14:00 Glucose (Glutose) 22.5 gm Q15M PRN PO DECREASED GLUCOSE; Start 08/25/17 at 14: 00 Dextrose (D50w Syringe) 25 ml Q15M PRN IV DECREASED GLUCOSE Last administered on 08/27/17 18:20; Admin Dose 25 ML; Start 08/25/17 at 14:00 Dextrose (D50w Syringe) 50 ml Q15M PRN IV DECREASED GLUCOSE; Start 08/25/17 at 14:00 Glucagon (Glucagen) 1 mg Q15M PRN IM DECREASED GLUCOSE; Start 08/25/17 at 14: 00 Glucose (Glutose) 15 gm Q15M PRN BUCCAL DECREASED GLUCOSE; Start 08/25/17 at 14:00 Acetaminophen 650 mg 650 mg Q4H PRN PO PAIN AND OR ELEVATED TEMP Last administered on 08/26/17 17:06; Admin Dose 650 MG; Start 08/25/17 at 20:30 Fluconazole (Diflucan 200 Mg/ NS (Pmx)) 100 ml @ 100 mls/hr Q24H IVPB Last administered on 09/02/17 13:06; Admin Dose 100 MLS/HR; Start 08/27/17 at 13: 00 Insulin Glargine (Lantus) 9 unit DAILY@10 SC Last administered on 09/02/17 10 :38; Admin Dose 9 UNIT; Start 08/28/17 at 10:00 Miscellaneous Medication (Bax Susp) 10 ml TID PO Last administered on 21:23; Admin Dose 10 ML; Start 08/29/17 at 13:00 Citric Acid/ Sodium Citrate (Bicitra) 30 ml TID PO Last administered on 13:06; Admin Dose 30 ML; Start 08/29/17 at 21:00 Lidocaine 15 ml 15 ml QID PO Last administered on 09/02/17 21:23; Admin Dose 15 ML; Start 08/30/17 at 21:00; Stop 09/06/17 at 21:00 Leucovorin Calcium/Dextrose (Leucovorin Calcium Inj/D5W) 50 ml @ 200 mls/hr Q6H IV Last administered on 09/03/17 04:35; Admin Dose 200 MLS/HR; Start at 22:00 Morphine Sulfate 1 mg 1 mg Q4H PRN IV LESS THAN 5/10 PAIN Last administered on 09/01/17 13:10; Admin Dose 1 MG; Start 08/30/17 at 20:00 Cefepime HCl (Maxipime 1gm/50 ml (Pmx)) 50 ml @ 100 mls/hr Q24H IVPB Last administered on 09/03/17 08:18; Admin Dose 100 MLS/HR; Start 09/02/17 at 09: 00 Hydralazine HCl 10 mg 10 mg Q6H PRN IV ELEVATED SYSTOLIC BP Last administered on 09/02/17 21:39; Admin Dose 10 MG; Start 09/01/17 at 21:30 Daptomycin/Sodium Chloride (Cubicin/NS) 100 ml @ 200 mls/hr Q48H IVPB Last administered on 09/02/17 17:42; Admin Dose 200 MLS/HR; Start 09/02/17 at 15: 00 JOANA BARKLEY MD Sep 03, 2017 09:35
[2017-09-03] MEDS: INSULIN GLARGINE [LANtus] 3 ML PEN SC SCH (10:17)
[2017-09-03] MEDS: LORATADINE 10 MG TAB PO SCH (10:18)
[2017-09-03] MEDS: LOSARTAN 50 MG TAB PO SCH (10:18)
[2017-09-03] MEDS: BISOPROLOL 5 MG TAB PO SCH (10:19)
[2017-09-03] MEDS: FLUCONAZOLE 200 MG/NS (PMX) 100 ML IVPB SCH (12:02)
[2017-09-03 13:17] VITALS: BP 155/68; RESP 18
--- NOTE | 2017-09-03 13:26 | CONS ---
Date/Time of Note Date/Time of Note DATE: 09/03/17 TIME: 13:22 Assessment/Plan Assessment/Plan Chief Complaint/Hosp Course 61 y/o with 1. acute on-chronic kidney disease with no known baseline could be due to underlying sepsis/meds vs drug induced Cr improved significantly 2 Underlying acute tubular necrosis, possibly sepsis-induced due to cellulitis of the left lower extremity. 3 Likely underlying diabetic nephropathy, underlying hypertensive nephrosclerosis 4 pancytopenia could be due to sepsis, as well as drug-induced mthx/sulpha 5. Hyponatremia. resolved 6. Non gap Metabolic acidosis likely secondary to renal failure on bictra 7 Nephrotic range proteinuria 8 BLE atherosclerosis Plan - Cr improved to 2.30 from 4.20 after stopping Sulpha/Mthx - Monitor UOP - IV abx per I.D renally dose all meds - D/C Neupogen - plt transfusion today - Proteinuria wup negative so far HIV, Hep panel, RPR, SPEP/UPEP - Will consider uptitraing Losartan once Cr back to baseline Problems: Consultation Date/Type/Reason Admit Date/Time Aug 24, 2017 at 19:05 Initial Consult Date 08/29/17 Type of Consultation: Renal Referring Provider: GIA DUMONT 24 HR Interval Summary Free Text/Dictation Pt able to tolerate puree food Kidney function improving Counts improving Exam/Review of Systems Vital Signs Vitals Vital Signs Date Time Temp Pulse Resp B/P Pulse Ox O2 Delivery O2 Flow Rate FiO2 09/03/17 13:17 97.7 84 18 155/68 100 09/03/17 13:06 Nasal Cannula 2.0 09/01/17 21:24 21 Intake and Output 09/02/17 09/02/17 09/03/17 15:00 23:00 07:00 Intake Total 300 ml 674 ml Output Total 600 ml Balance 300 ml 74 ml Results en : Flat affect, pt bleeding noted from lips HEENT: Unremarkable Neck: Supple, full ROM Respiratory: CTAB Cardiovascular: nl pulses, regular rate and rhythm Gastrointestinal: Soft, NT Extremities: Warml LLEXT edema/erythema/chronic hyperpigmentation changes distal pre-tibial Result Diagram: 09/03/17 0500 09/03/17 0453 Results 24 hrs Laboratory Tests Test 09/02/17 17:19 09/02/17 21:32 09/03/17 04:59 09/03/17 05:01 Bedside Glucose 94 107 Sodium Level 137 Potassium Level 3.8 Chloride Level 111 H Carbon Dioxide Level 18 L Anion Gap 12 Blood Urea Nitrogen 32 H Creatinine 2.37 H Glucose Level 108 # Calcium Level 8.1 L Phosphorus Level 3.1 Magnesium Level 2.0 Albumin 2.7 L White Blood Count 23.4 #H Red Blood Count 2.38 L Hemoglobin 7.0 L Hematocrit 21.2 L Mean Corpuscular Volume 89.1 Mean Corpuscular Hemoglobin 29.4 Mean Corpuscular Hemoglobin Concent 33.0 Red Cell Distribution Width 16.4 H Platelet Count 87 #L Mean Platelet Volume 11.9 H Neutrophils % Segmented Neutrophils % (Manual) 47 Band Neutrophils % (Manual) 16 H Lymphocytes % Lymphocytes % (Manual) 14 L Reactive Lymphocytes % (Manual) 1 H Monocytes % Monocytes % (Manual) 10 Eosinophils % Eosinophils % (Manual) 2 Basophils % Metamyelocytes % (manual) 6 H Myelocytes % (Manual) 4 H Nucleated Red Blood Cells % 1.1 H Neutrophils # Neutrophils # (Manual) 11.9 H Band Neutrophils # 3.7 H Absolute Lymphocytes (Manual) 3.2 H Lymphocytes # Reactive Lymphocytes # 0.2 H Monocytes # Absolute Monocytes (Manual) 2.3 H Eosinophils # Basophils # Metamyelocytes # 1.4 H Myelocytes # 0.9 H Nucleated Red Blood Cells # Platelet Estimate DECREASED Giant Platelets 1 H Polychromasia 1+ Anisocytosis 1+ Test 09/03/17 05:31 09/03/17 08:16 09/03/17 12:02 Lab Scanned Report BLOOD TRANSFUSION Bedside Glucose 120 114 Medications Medications Current Medications Ondansetron HCl (Zofran Inj) 4 mg Q6H PRN IV NAUSEA AND/OR VOMITING Last administered on 09/02/17 21:38; Admin Dose 4 MG; Start 08/25/17 at 08:00 Morphine Sulfate (morphine) 2 mg Q4H PRN IV PAIN Last administered on 09/01/17 20:06; Admin Dose 2 MG; Start 08/25/17 at 08:00 Amlodipine Besylate (Norvasc) 5 mg DAILY PO Last administered on 09/03/17 09: 00; Admin Dose 5 MG; Start 08/25/17 at 09:00 Bisoprolol Fumarate (Zebeta) 10 mg DAILY PO Last administered on 09/03/17 10: 19; Admin Dose 10 MG; Start 08/25/17 at 09:00 Loratadine (Claritin) 10 mg DAILY PO Last administered on 09/03/17 10:18; Admin Dose 10 MG; Start 08/25/17 at 09:00 Losartan Potassium (Cozaar) 50 mg DAILY PO Last administered on 09/03/17 10: 18; Admin Dose 50 MG; Start 08/25/17 at 09:00 Diagnostic Test (Pha) (Accu-Chek) 1 ea 02 XX ; Start 08/26/17 at 02:00 Miscellaneous Information 1 ea NOTE XX ; Start 08/25/17 at 14:00 Glucose (Glutose) 15 gm Q15M PRN PO DECREASED GLUCOSE; Start 08/25/17 at 14:00 Glucose (Glutose) 22.5 gm Q15M PRN PO DECREASED GLUCOSE; Start 08/25/17 at 14: 00 Dextrose (D50w Syringe) 25 ml Q15M PRN IV DECREASED GLUCOSE Last administered on 08/27/17 18:20; Admin Dose 25 ML; Start 08/25/17 at 14:00 Dextrose (D50w Syringe) 50 ml Q15M PRN IV DECREASED GLUCOSE; Start 08/25/17 at 14:00 Glucagon (Glucagen) 1 mg Q15M PRN IM DECREASED GLUCOSE; Start 08/25/17 at 14: 00 Glucose (Glutose) 15 gm Q15M PRN BUCCAL DECREASED GLUCOSE; Start 08/25/17 at 14:00 Acetaminophen 650 mg 650 mg Q4H PRN PO PAIN AND OR ELEVATED TEMP Last administered on 08/26/17 17:06; Admin Dose 650 MG; Start 08/25/17 at 20:30 Fluconazole (Diflucan 200 Mg/ NS (Pmx)) 100 ml @ 100 mls/hr Q24H IVPB Last administered on 09/03/17 12:02; Admin Dose 100 MLS/HR; Start 08/27/17 at 13: 00 Insulin Glargine (Lantus) 9 unit DAILY@10 SC Last administered on 09/03/17 10 :17; Admin Dose 9 UNIT; Start 08/28/17 at 10:00 Miscellaneous Medication (Bax Susp) 10 ml TID PO Last administered on 10/19/ 17at 21:23; Admin Dose 10 ML; Start 08/29/17 at 13:00 Citric Acid/ Sodium Citrate (Bicitra) 30 ml TID PO Last administered on 12:18; Admin Dose 30 ML; Start 08/29/17 at 21:00 Lidocaine 15 ml 15 ml QID PO Last administered on 09/03/17 12:19; Admin Dose 15 ML; Start 08/30/17 at 21:00; Stop 09/06/17 at 21:00 Leucovorin Calcium/Dextrose (Leucovorin Calcium Inj/D5W) 50 ml @ 200 mls/hr Q6H IV Last administered on 09/03/17 10:02; Admin Dose 200 MLS/HR; Start at 22:00 Morphine Sulfate 1 mg 1 mg Q4H PRN IV LESS THAN 5/10 PAIN Last administered on 09/01/17 13:10; Admin Dose 1 MG; Start 08/30/17 at 20:00 Cefepime HCl (Maxipime 1gm/50 ml (Pmx)) 50 ml @ 100 mls/hr Q24H IVPB Last administered on 09/03/17 08:18; Admin Dose 100 MLS/HR; Start 09/02/17 at 09: 00 Hydralazine HCl 10 mg 10 mg Q6H PRN IV ELEVATED SYSTOLIC BP Last administered on 09/02/17 21:39; Admin Dose 10 MG; Start 09/01/17 at 21:30 Daptomycin/Sodium Chloride (Cubicin/NS) 100 ml @ 200 mls/hr Q48H IVPB Last administered on 09/02/17 17:42; Admin Dose 200 MLS/HR; Start 09/02/17 at 15: 00 ARDEN JACKMAN MD Sep 03, 2017 13:26
[2017-09-03 19:45] VITALS: BP 164/77; RESP 18
--- NOTE | 2017-09-03 21:56 | PN ---
Date/Time of Note Date/Time of Note DATE: 09/03/17 TIME: 21:56 Assessment/Plan Lines/Catheters IV Catheter Type (from [facility]): Saline Lock Reina in Place (from [facility]): Yes Assessment/Plan Chief Complaint/Hosp Course 1. Left lower extremity cellulitis and edema with history of diabetes; No weeping/open areas; minimally improved; CT lower extremity: no abscess -IV antibiotics -Elevate above heart level 2. Pancytopenia with history of unknown reason for methotrexate therapy; now with thrombocytosis; off mtx -per heme 3. Diabetes -Nutrition medication optimization -Encourage weight loss 4. Hypertension -Nutrition medication optimization -Encourage weight loss 5. Chronic kidney disease: cr improving -Judicious fluid management -Avoid nephrotoxic agents -per renal 6. Abnormal LFTs of unknown etiology may be secondary to fatty liver -Monitor 7. Hypoalbuminemia with hypocalcemia -Nutritional optimization Thank you. Patient seen and examined in collaboration with Dr. William Russ. Problems: Subjective 24 Hr Interval Summary Leukocytosis. Cr improved. 1 unit PRBC. No fevers, chills, sob, congested cough , cp, palpitations, walsh, dizziness, n/v/d/dysuria, lle pain. Exam/Review of Systems Vital Signs Vitals Vital Signs Date Time Temp Pulse Resp B/P Pulse Ox O2 Delivery O2 Flow Rate FiO2 09/12/17 01:07 87 18 95 Nasal Cannula 3.0 09/12/17 00:00 98.6 139/77 09/10/17 20:13 30 Intake and Output 09/11/17 09/11/17 09/12/17 15:00 23:00 07:00 Intake Total 50 ml 1300 ml Output Total 600 ml Balance 50 ml 700 ml Exam Free Text/Dictation Constitutional: obese, other (Awake), No distress Psych: nl mood/affect, No anxiety Head: atraumatic, normocephalic Eyes: EOMI, PERRL, nl conjunctiva, No icteric ENMT: mucosa pink and dry, nl external ears & nose, nl lips & teeth Neck: non-tender, supple, No jvd Respiratory: normal air movement, No congested cough, No labored breathing, No wheezing Cardiovascular: edema (Left lower extremity- improving), regular rate and rhythm Gastrointestinal: non-tender, soft, No rebound or guarding Musculoskeletal: joint tenderness (Left ankle), No nl extremities to inspection Extremities: edema, normal pulses, pitting pedal edema, tenderness, No calf tenderness Neurological: nl mental status, nl strength Skin: rash or lesions (Left lower extremity-discoloration), dry skin No diaphoresis, No nl turgor Lymph: nl lymph nodes, nontender Results Result Diagram: 09/11/17 0557 09/11/17 0557 EDMUND KINCAID NP Sep 03, 2017 21:56
--- NOTE | 2017-09-03 21:56 | PN ---
Date/Time of Note Date/Time of Note DATE: 09/03/17 TIME: 21:56 Assessment/Plan Lines/Catheters IV Catheter Type (from [facility]): Saline Lock Reina in Place (from [facility]): Yes Assessment/Plan Chief Complaint/Hosp Course 1. Left lower extremity cellulitis and edema with history of diabetes; No weeping/open areas; minimally improved; CT lower extremity: no abscess -IV antibiotics -Elevate above heart level 2. Pancytopenia with history of unknown reason for methotrexate therapy; now with thrombocytosis; off mtx -per heme 3. Diabetes -Nutrition medication optimization -Encourage weight loss 4. Hypertension -Nutrition medication optimization -Encourage weight loss 5. Chronic kidney disease: cr improving -Judicious fluid management -Avoid nephrotoxic agents -per renal 6. Abnormal LFTs of unknown etiology may be secondary to fatty liver -Monitor 7. Hypoalbuminemia with hypocalcemia -Nutritional optimization Thank you. Patient seen and examined in collaboration with Dr. William Russ. Problems: Subjective 24 Hr Interval Summary Leukocytosis. Cr improved. 1 unit PRBC. No fevers, chills, sob, congested cough , cp, palpitations, walsh, dizziness, n/v/d/dysuria, lle pain. Exam/Review of Systems Vital Signs Vitals Vital Signs Date Time Temp Pulse Resp B/P Pulse Ox O2 Delivery O2 Flow Rate FiO2 09/12/17 01:07 87 18 95 Nasal Cannula 3.0 09/12/17 00:00 98.6 139/77 09/10/17 20:13 30 Intake and Output 09/11/17 09/11/17 09/12/17 15:00 23:00 07:00 Intake Total 50 ml 1300 ml Output Total 600 ml Balance 50 ml 700 ml Exam Free Text/Dictation Constitutional: obese, other (Awake), No distress Psych: nl mood/affect, No anxiety Head: atraumatic, normocephalic Eyes: EOMI, PERRL, nl conjunctiva, No icteric ENMT: mucosa pink and dry, nl external ears & nose, nl lips & teeth Neck: non-tender, supple, No jvd Respiratory: normal air movement, No congested cough, No labored breathing, No wheezing Cardiovascular: edema (Left lower extremity- improving), regular rate and rhythm Gastrointestinal: non-tender, soft, No rebound or guarding Musculoskeletal: joint tenderness (Left ankle), No nl extremities to inspection Extremities: edema, normal pulses, pitting pedal edema, tenderness, No calf tenderness Neurological: nl mental status, nl strength Skin: rash or lesions (Left lower extremity-discoloration), dry skin No diaphoresis, No nl turgor Lymph: nl lymph nodes, nontender Results Result Diagram: 09/11/17 0557 09/11/17 0557 EDMUND KINCAID NP Sep 03, 2017 21:56
[2017-09-04] MEDS: ACCU-CHEK XX SCH (01:18)
[2017-09-04] MEDS: ALBUTEROL/IPRATROPIUM (NEB) 3 ML AMP HHN SCH ×6 (01:29→21:10)
[2017-09-04] MEDS: hydrALAzine 20 MG INJ IV PRN ×2 (01:35→20:15)
[2017-09-04 01:36] VITALS: BP 188/79; RESP 18
[2017-09-04 02:33] VITALS: BP 134/63; PULSE 92; RESP 20
[2017-09-04] MEDS: LEUCOVORIN CALCIUM IV SCH ×4 (03:25→21:49)
[2017-09-04] MEDS: DEXTROSE 5% IV SCH ×4 (03:25→21:49)
[2017-09-04] MEDS: INSULIN ASPART [NOVOLOG] 3 ML PEN SC SCH ×7 (08:05→20:24)
[2017-09-04] MEDS: AMLODIPINE 5 MG TAB PO SCH (08:58)
[2017-09-04] MEDS: LIDOCAINE 2% VISC 15 ML CUP PO SCH ×4 (08:58→20:35)
[2017-09-04] MEDS: LORATADINE 10 MG TAB PO SCH (08:58)
[2017-09-04] MEDS: CITRIC ACID/NA CITRATE 30 ML CUP PO SCH ×3 (08:58→20:25)
[2017-09-04] MEDS: BISOPROLOL 5 MG TAB PO SCH (08:59)
[2017-09-04] MEDS: LOSARTAN 50 MG TAB PO SCH (08:59)
[2017-09-04] MEDS: CEFEPIME 1GM/50 ML (PMX) 50 ML IVPB SCH (08:59)
[2017-09-04] MEDS: DIPHENHYD/MYLANTA/LIDO (PO SYG) PO SCH ×3 (09:00→20:35)
[2017-09-04] MEDS: INSULIN GLARGINE [LANtus] 3 ML PEN SC SCH (10:04)
[2017-09-04] MEDS ORDERED: VANCOMYCIN 1.25 GM in SOD CHLORIDE 0.9% 250 ML IVPB SCH (11:00)
--- NOTE | 2017-09-04 11:53 | PN ---
Date/Time of Note Date/Time of Note DATE: 09/04/17 TIME: 11:53 Assessment/Plan VTE Prophylaxis VTE Prophylaxis Intervention: contraindicated Lines/Catheters IV Catheter Type (from Nrs): Saline Lock Urinary Cath still in place: Yes Reason Cath still needed: skin wounds contaminated by urine Assessment/Plan Assessment/Plan 1. Pancytopenia- improving - No transfusions needed today and counts improving - Hematology on board and recommendations appreciated. If counts do not improve and still requiring transfusions, considering BM bx - Hgb 8.3, Plt 97 - s/p multiple blood transfusions and plt transfusions. . 2. Mucositis 2/2 methotrexate use - lidocaine viscous and diphen/lido/mal oral solution ordered. Morphine if pain remain intolerable for PO intake - Tolerating pureed diet and will advance as tolerated 3. Left lower extremity cellulitis - ID and Surgery on board. Recommendations appreciated - Antibiotic changed to Daptomycin and advised to keep leg elevated - CT LE showed cellulitis and no evidence of osteomyelitis. Xray LE also performed and no osteomyelitis appreciated. 4. Vascular insufficiency - Vascular surgery on board and recommendations appreciated. No current vascular intervention as the patient has not developed any gangrene or ulcers - Will need to follow up as outpatient due to LE atherosclerosis 5. Neutropenia- resolved - WBC >30 and Neupogen stopped yesterday - Will continue to monitor - Heme on board and recommendations appreciated 6. BK vs BK on CKD - Nephrology on board and recommendations appreciated. - Cr improving - Monitor UOP - HIV negative, KASSY negative 7. Hypokalemia - stable 8. Eosinophilia - normalized after d/c sulfasalazine and mtx 9. Disposition - Will continue monitoring on Med/Surg Subjective 24 Hr Interval Summary Free Text/Dictation Patient in no acute distress and able to tolerate more PO intake. Requesting ointment for her dry lips. LLE improving and advised to keep elevated. No acute overnight events and no new complaints. Exam/Review of Systems Vital Signs Vitals Vital Signs Date Time Temp Pulse Resp B/P Pulse Ox O2 Delivery O2 Flow Rate FiO2 09/04/17 08:38 90 22 95 Nasal Cannula 2.5 09/04/17 02:33 98.9 134/63 09/01/17 21:24 21 Intake and Output 09/03/17 09/03/17 09/04/17 15:00 23:00 07:00 Intake Total 400 ml 800 ml 250 ml Output Total 600 ml 200 ml 500 ml Balance -200 ml 600 ml -250 ml Exam Gen : Flat affect, dry,cracked lips with no bleeding, greatly improved mucositis HEENT: NC/AT, EOM intact, PERRL Neck: Supple, full ROM Respiratory: CTAB, slight expiratory wheezes, no crackles Cardiovascular: nl pulses, regular rate and rhythm. no murmurs Gastrointestinal: Soft, NT, no rebound or guarding. non distended Extremities: LLE erythema, warmth, and tenderness- improving. Dry skin with chronic hyperpigmentation Results Result Diagram: 09/04/1715 09/04/17514 Results 24 hrs Laboratory Tests Test 09/03/17 12:02 09/03/17 17:49 09/03/17 20:39 09/03/17 20:42 Bedside Glucose 114 93 43 *L 45 *L Test 09/03/17 21:04 09/03/17 21:15 09/03/17 21:30 09/04/17 01:37 Glucose Level 164 Bedside Glucose 145 131 135 Test 09/04/17 05:14 09/04/17 05:15 09/04/17 05:20 09/04/17 08:04 Ferritin 4970.0 H Creatine Kinase 31 Vitamin B12 Level > 1000 H Folate > 20.0 H White Blood Count 32.7 #H Red Blood Count 2.86 #L Hemoglobin 8.3 L Hematocrit 25.1 L Mean Corpuscular Volume 87.8 Mean Corpuscular Hemoglobin 29.0 Mean Corpuscular Hemoglobin Concent 33.1 Red Cell Distribution Width 17.4 H Platelet Count 97 L Mean Platelet Volume 12.6 H Neutrophils % Segmented Neutrophils % (Manual) 57 Band Neutrophils % (Manual) 3 Lymphocytes % Lymphocytes % (Manual) 14 L Monocytes % Monocytes % (Manual) 14 H Eosinophils % Basophils % Metamyelocytes % (manual) 4 H Myelocytes % (Manual) 5 H Promyelocytes % (Manual) 3 H Nucleated Red Blood Cells % 1 H Neutrophils # Neutrophils # (Manual) 18.9 H Band Neutrophils # 0.9 H Absolute Lymphocytes (Manual) 4.5 H Lymphocytes # Monocytes # Absolute Monocytes (Manual) 4.5 H Eosinophils # Basophils # Metamyelocytes # 1.3 H Myelocytes # 1.6 H Promyelocytes # 0.9 H Nucleated Red Blood Cells # Platelet Estimate DECREASED Platelet Morphology Comment @See below Polychromasia 1+ Poikilocytosis 1+ Anisocytosis 1+ Microcytosis 1+ Absolute Reticulocyte Count 0.021 Percent Reticulocyte Count 0.7 Sodium Level 135 Potassium Level 3.6 Chloride Level 109 Carbon Dioxide Level 20 L Anion Gap 10 Blood Urea Nitrogen 31 H Creatinine 2.53 H Glucose Level 114 # Calcium Level 8.4 Phosphorus Level 3.3 Magnesium Level 2.1 Iron Level 107 Total Iron Binding Capacity 174 L Percent Iron Saturation 61 H Albumin 2.5 L Lab Scanned Report BLOOD TRANSFUSION Bedside Glucose 113 Test 09/04/17 08:46 09/04/17 09:39 09/04/17 10:02 Bedside Glucose 110 131 Lab Scanned Report BLOOD TRANSFUSION Medications Medications Current Medications Ondansetron HCl (Zofran Inj) 4 mg Q6H PRN IV NAUSEA AND/OR VOMITING Last administered on 09/02/17 21:38; Admin Dose 4 MG; Start 08/25/17 at 08:00 Morphine Sulfate (morphine) 2 mg Q4H PRN IV PAIN Last administered on 09/01/17 20:06; Admin Dose 2 MG; Start 08/25/17 at 08:00 Amlodipine Besylate (Norvasc) 5 mg DAILY PO Last administered on 09/04/17 08: 58; Admin Dose 5 MG; Start 08/25/17 at 09:00 Bisoprolol Fumarate (Zebeta) 10 mg DAILY PO Last administered on 09/04/17 08: 59; Admin Dose 10 MG; Start 08/25/17 at 09:00 Loratadine (Claritin) 10 mg DAILY PO Last administered on 09/04/17 08:58; Admin Dose 10 MG; Start 08/25/17 at 09:00 Losartan Potassium (Cozaar) 50 mg DAILY PO Last administered on 09/04/17 08: 59; Admin Dose 50 MG; Start 08/25/17 at 09:00 Diagnostic Test (Pha) (Accu-Chek) 1 ea 02 XX ; Start 08/26/17 at 02:00 Miscellaneous Information 1 ea NOTE XX ; Start 08/25/17 at 14:00 Glucose (Glutose) 15 gm Q15M PRN PO DECREASED GLUCOSE; Start 08/25/17 at 14:00 Glucose (Glutose) 22.5 gm Q15M PRN PO DECREASED GLUCOSE; Start 08/25/17 at 14: 00 Dextrose (D50w Syringe) 25 ml Q15M PRN IV DECREASED GLUCOSE Last administered on 08/27/17 18:20; Admin Dose 25 ML; Start 08/25/17 at 14:00 Dextrose (D50w Syringe) 50 ml Q15M PRN IV DECREASED GLUCOSE Last administered on 09/03/17 20:53; Admin Dose 50 ML; Start 08/25/17 at 14:00 Glucagon (Glucagen) 1 mg Q15M PRN IM DECREASED GLUCOSE; Start 08/25/17 at 14: 00 Glucose (Glutose) 15 gm Q15M PRN BUCCAL DECREASED GLUCOSE; Start 08/25/17 at 14:00 Acetaminophen 650 mg 650 mg Q4H PRN PO PAIN AND OR ELEVATED TEMP Last administered on 08/26/17 17:06; Admin Dose 650 MG; Start 08/25/17 at 20:30 Fluconazole (Diflucan 200 Mg/ NS (Pmx)) 100 ml @ 100 mls/hr Q24H IVPB Last administered on 09/03/17 12:02; Admin Dose 100 MLS/HR; Start 08/27/17 at 13: 00 Insulin Glargine (Lantus) 9 unit DAILY@10 SC Last administered on 09/04/17 10 :04; Admin Dose 9 UNIT; Start 08/28/17 at 10:00 Miscellaneous Medication (Bax Susp) 10 ml TID PO Last administered on 21:23; Admin Dose 10 ML; Start 08/29/17 at 13:00 Citric Acid/ Sodium Citrate (Bicitra) 30 ml TID PO Last administered on 08:58; Admin Dose 30 ML; Start 08/29/17 at 21:00 Lidocaine 15 ml 15 ml QID PO Last administered on 09/04/17 08:58; Admin Dose 15 ML; Start 08/30/17 at 21:00; Stop 09/06/17 at 21:00 Leucovorin Calcium/Dextrose (Leucovorin Calcium Inj/D5W) 50 ml @ 200 mls/hr Q6H IV Last administered on 09/04/17 09:02; Admin Dose 200 MLS/HR; Start at 22:00 Morphine Sulfate 1 mg 1 mg Q4H PRN IV LESS THAN 5/10 PAIN Last administered on 09/01/17 13:10; Admin Dose 1 MG; Start 08/30/17 at 20:00 Cefepime HCl (Maxipime 1gm/50 ml (Pmx)) 50 ml @ 100 mls/hr Q24H IVPB Last administered on 09/04/17 08:59; Admin Dose 100 MLS/HR; Start 09/02/17 at 09: 00 Hydralazine HCl 10 mg 10 mg Q6H PRN IV ELEVATED SYSTOLIC BP Last administered on 09/04/17 01:35; Admin Dose 10 MG; Start 09/01/17 at 21:30 Daptomycin/Sodium Chloride (Cubicin/NS) 100 ml @ 200 mls/hr Q48H IVPB Last administered on 09/02/17 17:42; Admin Dose 200 MLS/HR; Start 09/02/17 at 15: 00 JOANA BARKLEY MD Sep 04, 2017 11:53
[2017-09-04] MEDS: FLUCONAZOLE 200 MG/NS (PMX) 100 ML IVPB SCH (12:12)
--- NOTE | 2017-09-04 13:34 | CONS ---
Date/Time of Note Date/Time of Note DATE: 09/04/17 TIME: 13:33 Consult Date/Type/Reason Admit Date/Time Aug 24, 2017 at 19:05 Initial Consult Date 08/29/17 Type of Consultation: ID Ordering Provider: GIA DUMONT Objective Vital Signs Date Time Temp Pulse Resp B/P Pulse Ox O2 Delivery O2 Flow Rate FiO2 09/04/17 08:38 90 22 95 Nasal Cannula 2.5 09/04/17 02:33 98.9 134/63 09/01/17 21:24 21 Intake and Output 09/03/17 09/03/17 09/04/17 15:00 23:00 07:00 Intake Total 400 ml 800 ml 250 ml Output Total 600 ml 200 ml 500 ml Balance -200 ml 600 ml -250 ml Results/Medications Result Diagram: 09/04/1751409/04/17514 Results 24 hrs Laboratory Tests Test 09/03/17 17:49 09/03/17 20:39 09/03/17 20:42 09/03/17 21:04 Bedside Glucose 93 43 *L 45 *L Glucose Level 164 Test 09/03/17 21:15 09/03/17 21:30 09/04/17 01:37 09/04/17 05:14 Bedside Glucose 145 131 135 Ferritin 4970.0 H Creatine Kinase 31 Vitamin B12 Level > 1000 H Folate > 20.0 H Test 09/04/17 05:15 09/04/17 05:20 09/04/17 08:04 09/04/17 08:46 White Blood Count 32.7 #H Red Blood Count 2.86 #L Hemoglobin 8.3 L Hematocrit 25.1 L Mean Corpuscular Volume 87.8 Mean Corpuscular Hemoglobin 29.0 Mean Corpuscular Hemoglobin Concent 33.1 Red Cell Distribution Width 17.4 H Platelet Count 97 L Mean Platelet Volume 12.6 H Neutrophils % Segmented Neutrophils % (Manual) 57 Band Neutrophils % (Manual) 3 Lymphocytes % Lymphocytes % (Manual) 14 L Monocytes % Monocytes % (Manual) 14 H Eosinophils % Basophils % Metamyelocytes % (manual) 4 H Myelocytes % (Manual) 5 H Promyelocytes % (Manual) 3 H Nucleated Red Blood Cells % 1 H Neutrophils # Neutrophils # (Manual) 18.9 H Band Neutrophils # 0.9 H Absolute Lymphocytes (Manual) 4.5 H Lymphocytes # Monocytes # Absolute Monocytes (Manual) 4.5 H Eosinophils # Basophils # Metamyelocytes # 1.3 H Myelocytes # 1.6 H Promyelocytes # 0.9 H Nucleated Red Blood Cells # Platelet Estimate DECREASED Platelet Morphology Comment @See below Polychromasia 1+ Poikilocytosis 1+ Anisocytosis 1+ Microcytosis 1+ Absolute Reticulocyte Count 0.021 Percent Reticulocyte Count 0.7 Sodium Level 135 Potassium Level 3.6 Chloride Level 109 Carbon Dioxide Level 20 L Anion Gap 10 Blood Urea Nitrogen 31 H Creatinine 2.53 H Glucose Level 114 # Calcium Level 8.4 Phosphorus Level 3.3 Magnesium Level 2.1 Iron Level 107 Total Iron Binding Capacity 174 L Percent Iron Saturation 61 H Albumin 2.5 L Lab Scanned Report BLOOD TRANSFUSION Bedside Glucose 113 110 Test 09/04/17 09:39 09/04/17 10:02 09/04/17 11:55 Lab Scanned Report BLOOD TRANSFUSION Bedside Glucose 131 176 Medications Current Medications Ondansetron HCl (Zofran Inj) 4 mg Q6H PRN IV NAUSEA AND/OR VOMITING Last administered on 09/02/17 21:38; Admin Dose 4 MG; Start 08/25/17 at 08:00 Morphine Sulfate (morphine) 2 mg Q4H PRN IV PAIN Last administered on 09/01/17 20:06; Admin Dose 2 MG; Start 08/25/17 at 08:00 Amlodipine Besylate (Norvasc) 5 mg DAILY PO Last administered on 09/04/17 08: 58; Admin Dose 5 MG; Start 08/25/17 at 09:00 Bisoprolol Fumarate (Zebeta) 10 mg DAILY PO Last administered on 09/04/17 08: 59; Admin Dose 10 MG; Start 08/25/17 at 09:00 Loratadine (Claritin) 10 mg DAILY PO Last administered on 09/04/17 08:58; Admin Dose 10 MG; Start 08/25/17 at 09:00 Losartan Potassium (Cozaar) 50 mg DAILY PO Last administered on 09/04/17 08: 59; Admin Dose 50 MG; Start 08/25/17 at 09:00 Diagnostic Test (Pha) (Accu-Chek) 1 ea 02 XX ; Start 08/26/17 at 02:00 Miscellaneous Information 1 ea NOTE XX ; Start 08/25/17 at 14:00 Glucose (Glutose) 15 gm Q15M PRN PO DECREASED GLUCOSE; Start 08/25/17 at 14:00 Glucose (Glutose) 22.5 gm Q15M PRN PO DECREASED GLUCOSE; Start 08/25/17 at 14: 00 Dextrose (D50w Syringe) 25 ml Q15M PRN IV DECREASED GLUCOSE Last administered on 08/27/17 18:20; Admin Dose 25 ML; Start 08/25/17 at 14:00 Dextrose (D50w Syringe) 50 ml Q15M PRN IV DECREASED GLUCOSE Last administered on 09/03/17 20:53; Admin Dose 50 ML; Start 08/25/17 at 14:00 Glucagon (Glucagen) 1 mg Q15M PRN IM DECREASED GLUCOSE; Start 08/25/17 at 14: 00 Glucose (Glutose) 15 gm Q15M PRN BUCCAL DECREASED GLUCOSE; Start 08/25/17 at 14:00 Acetaminophen 650 mg 650 mg Q4H PRN PO PAIN AND OR ELEVATED TEMP Last administered on 08/26/17 17:06; Admin Dose 650 MG; Start 08/25/17 at 20:30 Fluconazole (Diflucan 200 Mg/ NS (Pmx)) 100 ml @ 100 mls/hr Q24H IVPB Last administered on 09/04/17 12:12; Admin Dose 100 MLS/HR; Start 08/27/17 at 13: 00 Insulin Glargine (Lantus) 9 unit DAILY@10 SC Last administered on 09/04/17 10 :04; Admin Dose 9 UNIT; Start 08/28/17 at 10:00 Miscellaneous Medication (Bax Susp) 10 ml TID PO Last administered on 21:23; Admin Dose 10 ML; Start 08/29/17 at 13:00 Citric Acid/ Sodium Citrate (Bicitra) 30 ml TID PO Last administered on 12:32; Admin Dose 30 ML; Start 08/29/17 at 21:00 Lidocaine 15 ml 15 ml QID PO Last administered on 09/04/17 12:31; Admin Dose 15 ML; Start 08/30/17 at 21:00; Stop 09/06/17 at 21:00 Leucovorin Calcium/Dextrose (Leucovorin Calcium Inj/D5W) 50 ml @ 200 mls/hr Q6H IV Last administered on 09/04/17 09:02; Admin Dose 200 MLS/HR; Start at 22:00 Morphine Sulfate 1 mg 1 mg Q4H PRN IV LESS THAN 5/10 PAIN Last administered on 09/01/17 13:10; Admin Dose 1 MG; Start 08/30/17 at 20:00 Cefepime HCl (Maxipime 1gm/50 ml (Pmx)) 50 ml @ 100 mls/hr Q24H IVPB Last administered on 09/04/17 08:59; Admin Dose 100 MLS/HR; Start 09/02/17 at 09: 00 Hydralazine HCl 10 mg 10 mg Q6H PRN IV ELEVATED SYSTOLIC BP Last administered on 09/04/17 01:35; Admin Dose 10 MG; Start 09/01/17 at 21:30 Daptomycin/Sodium Chloride (Cubicin/NS) 100 ml @ 200 mls/hr Q48H IVPB Last administered on 09/02/17 17:42; Admin Dose 200 MLS/HR; Start 09/02/17 at 15: 00 Assessment/Plan Chief Complaint/Hosp Course SUBJECTIVE: Awake, looks comfortable, no fevers over night, LLE swelling improved MICROBIOLOGY: Urine and blood cultures negative. ANTIMICROBIALS: 1. Fluconazole. 2. Daptomycin. 3. Cefepime. PHYSICAL EXAMINATION: GENERAL: This is a well-developed, elderly woman who is in no distress. HEENT: Head atraumatic, normocephalic. Sclerae anicteric. Buccal mucosa dry. NECK: Supple. CHEST: Rise symmetrical. Breath sounds diminished to bases. HEART: S1, S2. ABDOMEN: Soft, bowel tones present. EXTREMITIES: Without cyanosis. Left lower extremity with swelling and erythema , painful to touch. ASSESSMENT: 1. Left lower extremity cellulitis, slowly improving. 2. Pancytopenia/severe thrombocytopenia, resolving. 3. Neutropenia, resolved. 4. Acute possibly on chronic kidney disease. 5. Hypertension. 6. Diabetes. PLAN: The patient remains stable, continue abx, LLE elevation, f/u hematology/ podiatry/renal rec-s, bld products per hematology rec-s [facility] staff Problems: CODY VASQUEZ NP Sep 04, 2017 13:34
[2017-09-04] MEDS: ONDANSETRON 4 MG INJ IV PRN (13:47)
[2017-09-04] MEDS: DAPTOMYCIN 300 MG in SOD CHLORIDE 0.9% 100 ML IVPB SCH (14:57)
[2017-09-04 15:36] VITALS: BP_SYST 153; BP_SYST 172; BP_DIAS 67; BP_DIAS 79; RESP 16; RESP 18
[2017-09-04] MEDS: SILVER SULFADIAZINE 1% 400 GM CR TOP SCH ×2 (15:42→20:24)
--- NOTE | 2017-09-04 16:00 | PN ---
Date/Time of Note Date/Time of Note DATE: 09/04/17 TIME: 15:49 Assessment/Plan VTE Prophylaxis VTE Prophylaxis Intervention: contraindicated Lines/Catheters IV Catheter Type (from Nrs): Saline Lock Urinary Cath still in place: Yes Reason Cath still needed: other (indicate) Assessment/Plan Assessment/Plan 61 yo woman admitted for cellulitis of lower left leg. History of diabetes, hypertension, obesity, azotemia, abnormal liver studies and methotrexate administration for unclear diagnosis ( leg pain) found to have leukopenia, anemia and thrombocytopenia >Leukopenia Numerically improved Continue to monitor CBC >Anemia Previous examination was otherwise unrevealing, and more suggestive of inflammation Continue to monitor CBC >Thrombocytopenia Markedly improved Contined to monitor CBC Subjective 24 Hr Interval Summary Free Text/Dictation Patient awake, alert. Responsive, but noted wheezing Exam/Review of Systems Vital Signs Vitals Vital Signs Date Time Temp Pulse Resp B/P Pulse Ox O2 Delivery O2 Flow Rate FiO2 09/04/17 15:36 98.0 85 18 172/79 97 09/04/17 13:46 Nasal Cannula 3.0 09/01/17 21:24 21 Intake and Output 09/03/17 09/03/17 09/04/17 15:00 23:00 07:00 Intake Total 400 ml 800 ml 250 ml Output Total 600 ml 200 ml 500 ml Balance -200 ml 600 ml -250 ml Exam Constitutional: alert, oriented Head: atraumatic, normocephalic Eyes: EOMI, nl conjunctiva ENMT: nl lips & teeth, nl nasal mucosa & septum Neck: non-tender, supple Respiratory: crackles/rales, wheezing Cardiovascular: nl pulses, regular rate and rhythm Gastrointestinal: non-tender, soft Extremities: edema Results Result Diagram: 09/04/17 0515 09/04/17 0515 Results 24 hrs Laboratory Tests Test 09/03/17 17:49 09/03/17 20:39 09/03/17 20:42 09/03/17 21:04 Bedside Glucose 93 43 *L 45 *L Glucose Level 164 Test 09/03/17 21:15 09/03/17 21:30 09/04/17 01:37 09/04/17 05:14 Bedside Glucose 145 131 135 Ferritin 4970.0 H Creatine Kinase 31 Vitamin B12 Level > 1000 H Folate > 20.0 H Test 09/04/17 05:15 09/04/17 05:20 09/04/17 08:04 09/04/17 08:46 White Blood Count 32.7 #H Red Blood Count 2.86 #L Hemoglobin 8.3 L Hematocrit 25.1 L Mean Corpuscular Volume 87.8 Mean Corpuscular Hemoglobin 29.0 Mean Corpuscular Hemoglobin Concent 33.1 Red Cell Distribution Width 17.4 H Platelet Count 97 L Mean Platelet Volume 12.6 H Neutrophils % Segmented Neutrophils % (Manual) 57 Band Neutrophils % (Manual) 3 Lymphocytes % Lymphocytes % (Manual) 14 L Monocytes % Monocytes % (Manual) 14 H Eosinophils % Basophils % Metamyelocytes % (manual) 4 H Myelocytes % (Manual) 5 H Promyelocytes % (Manual) 3 H Nucleated Red Blood Cells % 1 H Neutrophils # Neutrophils # (Manual) 18.9 H Band Neutrophils # 0.9 H Absolute Lymphocytes (Manual) 4.5 H Lymphocytes # Monocytes # Absolute Monocytes (Manual) 4.5 H Eosinophils # Basophils # Metamyelocytes # 1.3 H Myelocytes # 1.6 H Promyelocytes # 0.9 H Nucleated Red Blood Cells # Platelet Estimate DECREASED Platelet Morphology Comment @See below Polychromasia 1+ Poikilocytosis 1+ Anisocytosis 1+ Microcytosis 1+ Absolute Reticulocyte Count 0.021 Percent Reticulocyte Count 0.7 Sodium Level 135 Potassium Level 3.6 Chloride Level 109 Carbon Dioxide Level 20 L Anion Gap 10 Blood Urea Nitrogen 31 H Creatinine 2.53 H Glucose Level 114 # Calcium Level 8.4 Phosphorus Level 3.3 Magnesium Level 2.1 Iron Level 107 Total Iron Binding Capacity 174 L Percent Iron Saturation 61 H Albumin 2.5 L Lab Scanned Report BLOOD TRANSFUSION Bedside Glucose 113 110 Test 09/04/17 09:39 09/04/17 10:02 09/04/17 11:55 Lab Scanned Report BLOOD TRANSFUSION Bedside Glucose 131 176 Medications Medications Current Medications Ondansetron HCl (Zofran Inj) 4 mg Q6H PRN IV NAUSEA AND/OR VOMITING Last administered on 09/04/17 13:47; Admin Dose 4 MG; Start 08/25/17 at 08:00 Morphine Sulfate (morphine) 2 mg Q4H PRN IV -08/24 PAIN Last administered on 09/01/17 20:06; Admin Dose 2 MG; Start 08/25/17 at 08:00 Amlodipine Besylate (Norvasc) 5 mg DAILY PO Last administered on 09/04/17 08: 58; Admin Dose 5 MG; Start 08/25/17 at 09:00 Bisoprolol Fumarate (Zebeta) 10 mg DAILY PO Last administered on 09/04/17 08: 59; Admin Dose 10 MG; Start 08/25/17 at 09:00 Loratadine (Claritin) 10 mg DAILY PO Last administered on 09/04/17 08:58; Admin Dose 10 MG; Start 08/25/17 at 09:00 Losartan Potassium (Cozaar) 50 mg DAILY PO Last administered on 09/04/17 08: 59; Admin Dose 50 MG; Start 08/25/17 at 09:00 Diagnostic Test (Pha) (Accu-Chek) 1 ea 02 XX ; Start 08/26/17 at 02:00 Miscellaneous Information 1 ea NOTE XX ; Start 08/25/17 at 14:00 Glucose (Glutose) 15 gm Q15M PRN PO DECREASED GLUCOSE; Start 08/25/17 at 14:00 Glucose (Glutose) 22.5 gm Q15M PRN PO DECREASED GLUCOSE; Start 08/25/17 at 14: 00 Dextrose (D50w Syringe) 25 ml Q15M PRN IV DECREASED GLUCOSE Last administered on 08/27/17 18:20; Admin Dose 25 ML; Start 08/25/17 at 14:00 Dextrose (D50w Syringe) 50 ml Q15M PRN IV DECREASED GLUCOSE Last administered on 09/03/17 20:53; Admin Dose 50 ML; Start 08/25/17 at 14:00 Glucagon (Glucagen) 1 mg Q15M PRN IM DECREASED GLUCOSE; Start 08/25/17 at 14: 00 Glucose (Glutose) 15 gm Q15M PRN BUCCAL DECREASED GLUCOSE; Start 08/25/17 at 14:00 Acetaminophen 650 mg 650 mg Q4H PRN PO PAIN AND OR ELEVATED TEMP Last administered on 08/26/17 17:06; Admin Dose 650 MG; Start 08/25/17 at 20:30 Fluconazole (Diflucan 200 Mg/ NS (Pmx)) 100 ml @ 100 mls/hr Q24H IVPB Last administered on 09/04/17 12:12; Admin Dose 100 MLS/HR; Start 08/27/17 at 13: 00 Insulin Glargine (Lantus) 9 unit DAILY@10 SC Last administered on 09/04/17 10 :04; Admin Dose 9 UNIT; Start 08/28/17 at 10:00 Miscellaneous Medication (Bax Susp) 10 ml TID PO Last administered on 21:23; Admin Dose 10 ML; Start 08/29/17 at 13:00 Citric Acid/ Sodium Citrate (Bicitra) 30 ml TID PO Last administered on 12:32; Admin Dose 30 ML; Start 08/29/17 at 21:00 Lidocaine 15 ml 15 ml QID PO Last administered on 09/04/17 12:31; Admin Dose 15 ML; Start 08/30/17 at 21:00; Stop 09/06/17 at 21:00 Leucovorin Calcium/Dextrose (Leucovorin Calcium Inj/D5W) 50 ml @ 200 mls/hr Q6H IV Last administered on 09/04/17 09:02; Admin Dose 200 MLS/HR; Start at 22:00 Morphine Sulfate 1 mg 1 mg Q4H PRN IV LESS THAN 5/10 PAIN Last administered on 09/01/17 13:10; Admin Dose 1 MG; Start 08/30/17 at 20:00 Cefepime HCl (Maxipime 1gm/50 ml (Pmx)) 50 ml @ 100 mls/hr Q24H IVPB Last administered on 09/04/17 08:59; Admin Dose 100 MLS/HR; Start 09/02/17 at 09: 00 Hydralazine HCl 10 mg 10 mg Q6H PRN IV ELEVATED SYSTOLIC BP Last administered on 09/04/17 01:35; Admin Dose 10 MG; Start 09/01/17 at 21:30 Daptomycin/Sodium Chloride (Cubicin/NS) 100 ml @ 200 mls/hr Q48H IVPB Last administered on 09/04/17 14:57; Admin Dose 200 MLS/HR; Start 09/02/17 at 15: 00 Silver Sulfadiazine (Thermazene 1% 400 Gm) 1 applic BID TOP Last administered on 09/04/17 15:42; Admin Dose 1 APPLIC; Start 09/04/17 at 14:00 JULIO TRONCOSO MD Sep 04, 2017 15:59
--- NOTE | 2017-09-04 16:59 | PN ---
Date/Time of Note Date/Time of Note DATE: 09/04/17 TIME: 16:58 Assessment/Plan Lines/Catheters IV Catheter Type (from [facility]): Saline Lock Reina in Place (from [facility]): Yes Assessment/Plan Chief Complaint/Hosp Course 1. Left lower extremity cellulitis and edema with history of diabetes; No weeping/open areas; minimally improved; CT lower extremity: no abscess -IV antibiotics -Elevate above heart level 2. Pancytopenia with history of unknown reason for methotrexate therapy: improved, now with leukocytosis; s/p PRBC and plt transfusions -per heme 3. Diabetes -Nutrition medication optimization -Encourage weight loss 4. Hypertension -Nutrition medication optimization -Encourage weight loss 5. BK on Chronic kidney disease: -Judicious fluid management -Avoid nephrotoxic agents 6. Abnormal LFTs of unknown etiology may be secondary to fatty liver -Monitor 7. Hypoalbuminemia with hypocalcemia -Nutritional optimization Thank you. Patient seen and examined in collaboration with Dr. William Russ. Problems: Subjective 24 Hr Interval Summary No acute overnight events. Leukocytosis continues. No fevers, chills, sob, congested cough, cp, palpitations, walsh, dizziness, n/v/d/dysuria. LLE improving - no draining or fluctuant areas. Exam/Review of Systems Vital Signs Vitals Vital Signs Date Time Temp Pulse Resp B/P Pulse Ox O2 Delivery O2 Flow Rate FiO2 09/12/17 01:07 87 18 95 Nasal Cannula 3.0 09/12/17 00:00 98.6 139/77 09/10/17 20:13 30 Intake and Output 09/11/17 09/11/17 09/12/17 15:00 23:00 07:00 Intake Total 50 ml 1300 ml Output Total 600 ml Balance 50 ml 700 ml Exam Free Text/Dictation Constitutional: obese, other (Awake), No distress Psych: nl mood/affect, No anxiety Head: atraumatic, normocephalic Eyes: EOMI, PERRL, nl conjunctiva, No icteric ENMT: mucosa pink and dry, nl external ears & nose, nl lips & teeth Neck: non-tender, supple, No jvd Respiratory: normal air movement, No congested cough, No labored breathing, No wheezing Cardiovascular: edema (Left lower extremity- improving), regular rate and rhythm Gastrointestinal: non-tender, soft, No rebound or guarding Musculoskeletal: joint tenderness (Left ankle), No nl extremities to inspection Extremities: edema, normal pulses, pitting pedal edema, tenderness, No calf tenderness Neurological: nl mental status, nl strength Skin: rash or lesions (Left lower extremity-discoloration), dry/flaky skin No diaphoresis, No nl turgor Lymph: nl lymph nodes, nontender Results Result Diagram: 09/11/17 0557 09/11/17 0557 EDMUND KINCAID NP Sep 04, 2017 16:59
--- NOTE | 2017-09-04 16:59 | PN ---
Date/Time of Note Date/Time of Note DATE: 09/04/17 TIME: 16:58 Assessment/Plan Lines/Catheters IV Catheter Type (from [facility]): Saline Lock Reina in Place (from [facility]): Yes Assessment/Plan Chief Complaint/Hosp Course 1. Left lower extremity cellulitis and edema with history of diabetes; No weeping/open areas; minimally improved; CT lower extremity: no abscess -IV antibiotics -Elevate above heart level 2. Pancytopenia with history of unknown reason for methotrexate therapy: improved, now with leukocytosis; s/p PRBC and plt transfusions -per heme 3. Diabetes -Nutrition medication optimization -Encourage weight loss 4. Hypertension -Nutrition medication optimization -Encourage weight loss 5. BK on Chronic kidney disease: -Judicious fluid management -Avoid nephrotoxic agents 6. Abnormal LFTs of unknown etiology may be secondary to fatty liver -Monitor 7. Hypoalbuminemia with hypocalcemia -Nutritional optimization Thank you. Patient seen and examined in collaboration with Dr. William Russ. Problems: Subjective 24 Hr Interval Summary No acute overnight events. Leukocytosis continues. No fevers, chills, sob, congested cough, cp, palpitations, walsh, dizziness, n/v/d/dysuria. LLE improving - no draining or fluctuant areas. Exam/Review of Systems Vital Signs Vitals Vital Signs Date Time Temp Pulse Resp B/P Pulse Ox O2 Delivery O2 Flow Rate FiO2 09/12/17 01:07 87 18 95 Nasal Cannula 3.0 09/12/17 00:00 98.6 139/77 09/10/17 20:13 30 Intake and Output 09/11/17 09/11/17 09/12/17 15:00 23:00 07:00 Intake Total 50 ml 1300 ml Output Total 600 ml Balance 50 ml 700 ml Exam Free Text/Dictation Constitutional: obese, other (Awake), No distress Psych: nl mood/affect, No anxiety Head: atraumatic, normocephalic Eyes: EOMI, PERRL, nl conjunctiva, No icteric ENMT: mucosa pink and dry, nl external ears & nose, nl lips & teeth Neck: non-tender, supple, No jvd Respiratory: normal air movement, No congested cough, No labored breathing, No wheezing Cardiovascular: edema (Left lower extremity- improving), regular rate and rhythm Gastrointestinal: non-tender, soft, No rebound or guarding Musculoskeletal: joint tenderness (Left ankle), No nl extremities to inspection Extremities: edema, normal pulses, pitting pedal edema, tenderness, No calf tenderness Neurological: nl mental status, nl strength Skin: rash or lesions (Left lower extremity-discoloration), dry/flaky skin No diaphoresis, No nl turgor Lymph: nl lymph nodes, nontender Results Result Diagram: 09/11/17 0557 09/11/17 0557 EDMUND KINCAID NP Sep 04, 2017 16:59
--- NOTE | 2017-09-04 17:04 | CONS ---
Date/Time of Note Date/Time of Note DATE: 09/04/17 TIME: 17:02 Assessment/Plan Assessment/Plan Chief Complaint/Hosp Course 1. acute on-chronic kidney disease with no known baseline could be due to underlying sepsis/meds vs drug induced Cr improved significantly 2 Underlying acute tubular necrosis, possibly sepsis-induced due to cellulitis of the left lower extremity. 3 Likely underlying diabetic nephropathy, underlying hypertensive nephrosclerosis 4 pancytopenia could be due to sepsis, as well as drug-induced mthx/sulpha 5. Hyponatremia, resolved 6. Non gap Metabolic acidosis likely secondary to renal failure on bictra 7 Nephrotic range proteinuria 8 BLE atherosclerosis Problems: Additional Assessment/Plan 1. Optimization of kidney function Consultation Date/Type/Reason Admit Date/Time Aug 24, 2017 at 19:05 Initial Consult Date 08/31/17 Type of Consultation: nephrology Reason for Consultation Dr Alarcon Referring Provider: GIA DUMONT Exam/Review of Systems Vital Signs Vitals Vital Signs Date Time Temp Pulse Resp B/P Pulse Ox O2 Delivery O2 Flow Rate FiO2 09/04/17 15:36 98.0 85 18 172/79 97 09/04/17 13:46 Nasal Cannula 3.0 09/01/17 21:24 21 Intake and Output 09/03/17 09/03/17 09/04/17 15:00 23:00 07:00 Intake Total 400 ml 800 ml 250 ml Output Total 600 ml 200 ml 500 ml Balance -200 ml 600 ml -250 ml Exam Constitutional: alert, oriented Respiratory: diminished breath sounds Gastrointestinal: distended Musculoskeletal: swelling Results Result Diagram: 09/04/17 0515 09/04/17 0515 Results 24 hrs Laboratory Tests Test 09/03/17 17:49 09/03/17 20:39 09/03/17 20:42 09/03/17 21:04 Bedside Glucose 93 43 *L 45 *L Glucose Level 164 Test 09/03/17 21:15 09/03/17 21:30 09/04/17 01:37 09/04/17 05:14 Bedside Glucose 145 131 135 Ferritin 4970.0 H Creatine Kinase 31 Vitamin B12 Level > 1000 H Folate > 20.0 H Test 09/04/17 05:15 09/04/17 05:20 09/04/17 08:04 09/04/17 08:46 White Blood Count 32.7 #H Red Blood Count 2.86 #L Hemoglobin 8.3 L Hematocrit 25.1 L Mean Corpuscular Volume 87.8 Mean Corpuscular Hemoglobin 29.0 Mean Corpuscular Hemoglobin Concent 33.1 Red Cell Distribution Width 17.4 H Platelet Count 97 L Mean Platelet Volume 12.6 H Neutrophils % Segmented Neutrophils % (Manual) 57 Band Neutrophils % (Manual) 3 Lymphocytes % Lymphocytes % (Manual) 14 L Monocytes % Monocytes % (Manual) 14 H Eosinophils % Basophils % Metamyelocytes % (manual) 4 H Myelocytes % (Manual) 5 H Promyelocytes % (Manual) 3 H Nucleated Red Blood Cells % 1 H Neutrophils # Neutrophils # (Manual) 18.9 H Band Neutrophils # 0.9 H Absolute Lymphocytes (Manual) 4.5 H Lymphocytes # Monocytes # Absolute Monocytes (Manual) 4.5 H Eosinophils # Basophils # Metamyelocytes # 1.3 H Myelocytes # 1.6 H Promyelocytes # 0.9 H Nucleated Red Blood Cells # Platelet Estimate DECREASED Platelet Morphology Comment @See below Polychromasia 1+ Poikilocytosis 1+ Anisocytosis 1+ Microcytosis 1+ Absolute Reticulocyte Count 0.021 Percent Reticulocyte Count 0.7 Sodium Level 135 Potassium Level 3.6 Chloride Level 109 Carbon Dioxide Level 20 L Anion Gap 10 Blood Urea Nitrogen 31 H Creatinine 2.53 H Glucose Level 114 # Calcium Level 8.4 Phosphorus Level 3.3 Magnesium Level 2.1 Iron Level 107 Total Iron Binding Capacity 174 L Percent Iron Saturation 61 H Albumin 2.5 L Lab Scanned Report BLOOD TRANSFUSION Bedside Glucose 113 110 Test 09/04/17 09:39 09/04/17 10:02 09/04/17 11:55 Lab Scanned Report BLOOD TRANSFUSION Bedside Glucose 131 176 Medications Medications Current Medications Ondansetron HCl (Zofran Inj) 4 mg Q6H PRN IV NAUSEA AND/OR VOMITING Last administered on 09/04/17 13:47; Admin Dose 4 MG; Start 08/25/17 at 08:00 Morphine Sulfate (morphine) 2 mg Q4H PRN IV 5-08/24 PAIN Last administered on 09/01/17 20:06; Admin Dose 2 MG; Start 08/25/17 at 08:00 Amlodipine Besylate (Norvasc) 5 mg DAILY PO Last administered on 09/04/17 08: 58; Admin Dose 5 MG; Start 08/25/17 at 09:00 Bisoprolol Fumarate (Zebeta) 10 mg DAILY PO Last administered on 09/04/17 08: 59; Admin Dose 10 MG; Start 08/25/17 at 09:00 Loratadine (Claritin) 10 mg DAILY PO Last administered on 09/04/17 08:58; Admin Dose 10 MG; Start 08/25/17 at 09:00 Losartan Potassium (Cozaar) 50 mg DAILY PO Last administered on 09/04/17 08: 59; Admin Dose 50 MG; Start 08/25/17 at 09:00 Diagnostic Test (Pha) (Accu-Chek) 1 ea 02 XX ; Start 08/26/17 at 02:00 Miscellaneous Information 1 ea NOTE XX ; Start 08/25/17 at 14:00 Glucose (Glutose) 15 gm Q15M PRN PO DECREASED GLUCOSE; Start 08/25/17 at 14:00 Glucose (Glutose) 22.5 gm Q15M PRN PO DECREASED GLUCOSE; Start 08/25/17 at 14: 00 Dextrose (D50w Syringe) 25 ml Q15M PRN IV DECREASED GLUCOSE Last administered on 08/27/17 18:20; Admin Dose 25 ML; Start 08/25/17 at 14:00 Dextrose (D50w Syringe) 50 ml Q15M PRN IV DECREASED GLUCOSE Last administered on 09/03/17 20:53; Admin Dose 50 ML; Start 08/25/17 at 14:00 Glucagon (Glucagen) 1 mg Q15M PRN IM DECREASED GLUCOSE; Start 08/25/17 at 14: 00 Glucose (Glutose) 15 gm Q15M PRN BUCCAL DECREASED GLUCOSE; Start 08/25/17 at 14:00 Acetaminophen 650 mg 650 mg Q4H PRN PO PAIN AND OR ELEVATED TEMP Last administered on 08/26/17 17:06; Admin Dose 650 MG; Start 08/25/17 at 20:30 Fluconazole (Diflucan 200 Mg/ NS (Pmx)) 100 ml @ 100 mls/hr Q24H IVPB Last administered on 09/04/17 12:12; Admin Dose 100 MLS/HR; Start 08/27/17 at 13: 00 Insulin Glargine (Lantus) 9 unit DAILY@10 SC Last administered on 09/04/17 10 :04; Admin Dose 9 UNIT; Start 08/28/17 at 10:00 Miscellaneous Medication (Bax Susp) 10 ml TID PO Last administered on 21:23; Admin Dose 10 ML; Start 08/29/17 at 13:00 Citric Acid/ Sodium Citrate (Bicitra) 30 ml TID PO Last administered on 12:32; Admin Dose 30 ML; Start 08/29/17 at 21:00 Lidocaine 15 ml 15 ml QID PO Last administered on 09/04/17 12:31; Admin Dose 15 ML; Start 08/30/17 at 21:00; Stop 09/06/17 at 21:00 Leucovorin Calcium/Dextrose (Leucovorin Calcium Inj/D5W) 50 ml @ 200 mls/hr Q6H IV Last administered on 09/04/17 16:06; Admin Dose 200 MLS/HR; Start at 22:00 Morphine Sulfate 1 mg 1 mg Q4H PRN IV LESS THAN 5/10 PAIN Last administered on 09/01/17 13:10; Admin Dose 1 MG; Start 08/30/17 at 20:00 Cefepime HCl (Maxipime 1gm/50 ml (Pmx)) 50 ml @ 100 mls/hr Q24H IVPB Last administered on 09/04/17 08:59; Admin Dose 100 MLS/HR; Start 09/02/17 at 09: 00 Hydralazine HCl 10 mg 10 mg Q6H PRN IV ELEVATED SYSTOLIC BP Last administered on 09/04/17 01:35; Admin Dose 10 MG; Start 09/01/17 at 21:30 Daptomycin/Sodium Chloride (Cubicin/NS) 100 ml @ 200 mls/hr Q48H IVPB Last administered on 09/04/17 14:57; Admin Dose 200 MLS/HR; Start 09/02/17 at 15: 00 Silver Sulfadiazine (Thermazene 1% 400 Gm) 1 applic BID TOP Last administered on 09/04/17 15:42; Admin Dose 1 APPLIC; Start 09/04/17 at 14:00 JUAN CARLOS THURMAN Sep 04, 2017 17:04
[2017-09-04 20:00] VITALS: BP 189/81; RESP 20
[2017-09-04] MEDS ORDERED: NITROGLYCERIN (SL) 0.4 MG TAB ONE (20:30)
[2017-09-04] MEDS ORDERED: NITROGLYCERIN (SL) 0.4 MG TAB SL ONE (20:30)
[2017-09-04 20:40] VITALS: BP 177/80; PULSE 92
--- NOTE | 2017-09-04 21:08 | RADRPT ---
PROCEDURE: XR Chest. CLINICAL INDICATION: Chest pain. TECHNIQUE: Single frontal view. COMPARISON: 09/01/2017. FINDINGS: There is patchy consolidation in the right upper lobe consistent with pneumonia. There is new dense consolidation in the left lung base consistent with pneumonia. The heart size is normal. There is no pleural effusion. There is no pneumothorax. IMPRESSION: 1. Patchy pneumonia in the right upper lobe. 2. Dense pneumonia at the left lung base. 3. Otherwise normal chest x-ray. RPTAT: QQ .Justice Carrizales MD, MD Date Time Electronically viewed and signed by .Justice Carrizales MD, MD on 09/04/2017 21:07 .R/
[2017-09-05] VITALS (13 sets, daily range): BP systolic 137–167; BP diastolic 63–79; PULSE 79–95; RESP 18–24
[2017-09-05] MEDS: hydrALAzine 20 MG INJ IV PRN (00:39)
[2017-09-05] MEDS ORDERED: hydrALAzine 20 MG INJ IV PRN (01:00)
[2017-09-05] MEDS ORDERED: hydrALAzine 20 MG INJ IV SCH (01:00)
[2017-09-05] MEDS: ACCU-CHEK XX SCH (01:03)
[2017-09-05] MEDS ORDERED: FUROSEMIDE 20 MG INJ IV ONE (02:30)
[2017-09-05] MEDS ORDERED: LABETALOL HCL 20MG INJ IV ONE (02:30)
[2017-09-05] MEDS: ALBUTEROL/IPRATROPIUM (NEB) 3 ML AMP HHN SCH ×6 (02:34→20:51)
[2017-09-05] MEDS: LEUCOVORIN CALCIUM IV SCH ×4 (03:59→21:38)
[2017-09-05] MEDS: DEXTROSE 5% IV SCH ×4 (03:59→21:38)
--- NOTE | 2017-09-05 04:43 | EN ---
Date/Time of Note Date/Time of Note DATE: 09/05/17 TIME: 04:39 Event Note Medicine Medicine Event Note Was called to the room by the patient's nurse as patient was complaining of chest discomfort. Patient also was noted to be mildly wheezing. Stat chest x- ray was ordered An EKG. EKG showed normal sinus rhythm at 90 bpm, there were no acute ST or T-wave abnormalities noted. Chest x-ray showed: Patchy pneumonia in the right upper lobe. Dense new pneumonia at the left lung base. Patient was initially given a sublingual nitro. Patient did report improvement in her discomfort. She was also given a breathing treatment with nebulizer. Stat CK-MB and troponin were ordered. First troponin was mildly elevated at 0.16. After the breathing treatment and the nitro patient was chest pain-free. She is currently on multiple antibiotics at the current time. Will defer further antibiotic management to ID. At the current time I do feel like her troponin may be secondary to demand. Will order repeat CK-MB and troponin in 6 hours. If the patient's chest pain returns will order repeat EKG. I do not feel at this time the patient is having an ischemic event however we will continue to monitor. Will order echocardiogram in the a.m. Cardiology consultation. She also has a history of thrombocytopenia on this admission as well and low hemoglobin so at the current time I do not feel she is a good anticoagulant candidate however if this indeed is an ischemic event requiring anticoagulation will discuss with cardiology. USAMA SULLIVAN Sep 05, 2017 04:43
[2017-09-05] MEDS: INSULIN ASPART [NOVOLOG] 3 ML PEN SC SCH ×6 (07:55→21:09)
[2017-09-05] MEDS: LOSARTAN 50 MG TAB PO SCH (08:19)
[2017-09-05] MEDS: CEFEPIME 1GM/50 ML (PMX) 50 ML IVPB SCH (08:19)
[2017-09-05] MEDS: LORATADINE 10 MG TAB PO SCH (08:19)
[2017-09-05] MEDS: AMLODIPINE 5 MG TAB PO SCH (08:29)
[2017-09-05] MEDS: CITRIC ACID/NA CITRATE 30 ML CUP PO SCH ×3 (08:30→20:59)
[2017-09-05] MEDS: BISOPROLOL 5 MG TAB PO SCH (09:00)
[2017-09-05] MEDS: LIDOCAINE 2% VISC 15 ML CUP PO SCH ×4 (09:00→20:59)
[2017-09-05] MEDS: DIPHENHYD/MYLANTA/LIDO (PO SYG) PO SCH ×3 (09:00→21:13)
[2017-09-05] MEDS: INSULIN GLARGINE [LANtus] 3 ML PEN SC SCH (10:00)
[2017-09-05] MEDS: SILVER SULFADIAZINE 1% 400 GM CR TOP SCH ×2 (10:23→21:13)
[2017-09-05] MEDS: DEXTROSE 50% 50 ML SYRINGE IV PRN ×2 (10:36→12:07)
--- NOTE | 2017-09-05 10:43 | CONS ---
Date/Time of Note Date/Time of Note DATE: 09/05/17 TIME: 10:35 Assessment/Plan Assessment/Plan Chief Complaint/Hosp Course Assessment/Plan Chief Complaint/Hosp Course SUBJECTIVE: Patient was transferred to Telemetry. Awake. Alert. LLE swelling and cellulitis improved. Vital Signs: BP -167/74 HR- 90 RR-24 O2Sat -100% on Non- Rebreather mask MICROBIOLOGY: Urine and blood cultures negative. ANTIMICROBIALS: 1. Fluconazole. 2. Daptomycin. 3. Cefepime. PHYSICAL EXAMINATION: GENERAL: This is a well-developed, elderly woman who is in no distress. HEENT: Head atraumatic, normocephalic. Sclerae anicteric. Buccal mucosa dry. NECK: Supple. CHEST: Bilateral Wheezing Noted. Rise symmetrical. Breath sounds diminished to bases. HEART: S1, S2. ABDOMEN: Soft, bowel tones present. EXTREMITIES: Without cyanosis. Left lower extremity with swelling and erythema , painful to touch. ASSESSMENT: 1. Left lower extremity cellulitis, slowly improving. 2. Pancytopenia/severe thrombocytopenia, resolving. 3. Neutropenia, resolved. 4. Acute possibly on chronic kidney disease. 5. Hypertension. 6. Diabetes. 7. Wheezing. 8. Pneumonia. PLAN: Continue Telemetry Monitoring. Continue ABX, LLE elevation. Monitor labs. Folllow Up with Hematology, Podiatry and Renal recommendations. Consider Pulmonology Consult. Blood products as per Medical Review Coordinator. GI prophylaxis. DVT prophylaxis. Patient with worsening Respiratory status. We are going to change Antibiotics to Vancomycin and Meropenem. D/W Staff. Problems: Consultation Date/Type/Reason Admit Date/Time Aug 24, 2017 at 19:05 Initial Consult Date 08/31/17 Type of Consultation: ID Referring Provider: GIA DUMONT Exam/Review of Systems Vital Signs Vitals Vital Signs Date Time Temp Pulse Resp B/P Pulse Ox O2 Delivery O2 Flow Rate FiO2 09/05/17 08:43 15.0 100 09/05/17 08:43 90 24 Non Rebreather Mask 09/05/17 07:55 98.9 167/74 100 Intake and Output 09/04/17 09/04/17 09/05/17 15:00 23:00 07:00 Intake Total 200 ml 1460 ml Output Total 600 ml Balance 200 ml 860 ml Results Result Diagram: 09/05/17 0738 09/05/17 0738 Results 24 hrs Laboratory Tests Test 09/04/17 11:55 09/04/17 17:17 09/04/17 20:21 09/04/17 20:53 Bedside Glucose 176 122 108 Creatine Kinase 33 Creatine Kinase Index 7.0 Creatinine Kinase MB (Mass) 2.32 Troponin I 0.160 *H Test 09/05/17 01:58 09/05/17 02:40 09/05/17 07:38 09/05/17 08:09 Bedside Glucose 101 112 Creatine Kinase 30 Creatine Kinase Index 5.8 Creatinine Kinase MB (Mass) 1.74 Troponin I 0.149 *H White Blood Count 35.8 H Red Blood Count 2.90 L Hemoglobin 8.6 L Hematocrit 25.2 L Mean Corpuscular Volume 86.9 Mean Corpuscular Hemoglobin 29.7 Mean Corpuscular Hemoglobin Concent 34.1 Red Cell Distribution Width 17.6 H Platelet Count 114 L Mean Platelet Volume 12.3 H Neutrophils % Segmented Neutrophils % (Manual) 36 L Band Neutrophils % (Manual) 8 H Lymphocytes % Lymphocytes % (Manual) 7 L Reactive Lymphocytes % (Manual) 1 H Monocytes % Monocytes % (Manual) 23 H Eosinophils % Eosinophils % (Manual) 2 Basophils % Metamyelocytes % (manual) 3 H Myelocytes % (Manual) 5 H Promyelocytes % (Manual) 15 H Nucleated Red Blood Cells % 1 H Neutrophils # Neutrophils # (Manual) 13.9 H Band Neutrophils # 2.8 H Absolute Lymphocytes (Manual) 2.5 Lymphocytes # Reactive Lymphocytes # 0.3 H Monocytes # Absolute Monocytes (Manual) 8.2 H Eosinophils # Basophils # Metamyelocytes # 1.0 H Myelocytes # 1.7 H Promyelocytes # 5.3 H Nucleated Red Blood Cells # Platelet Estimate DECREASED Anisocytosis 1+ Microcytosis 1+ Sodium Level 135 Potassium Level 3.6 Chloride Level 106 Carbon Dioxide Level 20 L Anion Gap 13 Blood Urea Nitrogen 30 H Creatinine 2.57 H Glucose Level 101 Calcium Level 8.2 L Phosphorus Level 3.9 Magnesium Level 2.1 Albumin 2.8 L Test 09/05/17 10:33 Bedside Glucose 54 L Medications Medications Current Medications Ondansetron HCl (Zofran Inj) 4 mg Q6H PRN IV NAUSEA AND/OR VOMITING Last administered on 09/04/17t 13:47; Admin Dose 4 MG; Start 08/25/17 at 08:00 Morphine Sulfate (morphine) 2 mg Q4H PRN IV PAIN Last administered on 09/01/17 20:06; Admin Dose 2 MG; Start 08/25/17 at 08:00 Amlodipine Besylate (Norvasc) 5 mg DAILY PO Last administered on 09/05/17 08: 29; Admin Dose 5 MG; Start 08/25/17 at 09:00 Bisoprolol Fumarate (Zebeta) 10 mg DAILY PO Last administered on 09/04/17 08: 59; Admin Dose 10 MG; Start 08/25/17 at 09:00 Loratadine (Claritin) 10 mg DAILY PO Last administered on 09/05/17 08:19; Admin Dose 10 MG; Start 08/25/17 at 09:00 Losartan Potassium (Cozaar) 50 mg DAILY PO Last administered on 09/05/17 08: 19; Admin Dose 50 MG; Start 08/25/17 at 09:00 Diagnostic Test (Pha) (Accu-Chek) 1 ea 02 XX ; Start 08/26/17 at 02:00 Miscellaneous Information 1 ea NOTE XX ; Start 08/25/17 at 14:00 Glucose (Glutose) 15 gm Q15M PRN PO DECREASED GLUCOSE; Start 08/25/17 at 14:00 Glucose (Glutose) 22.5 gm Q15M PRN PO DECREASED GLUCOSE; Start 08/25/17 at 14: 00 Dextrose (D50w Syringe) 25 ml Q15M PRN IV DECREASED GLUCOSE Last administered on 08/27/17 18:20; Admin Dose 25 ML; Start 08/25/17 at 14:00 Dextrose (D50w Syringe) 50 ml Q15M PRN IV DECREASED GLUCOSE Last administered on 09/03/17 20:53; Admin Dose 50 ML; Start 08/25/17 at 14:00 Glucagon (Glucagen) 1 mg Q15M PRN IM DECREASED GLUCOSE; Start 08/25/17 at 14: 00 Glucose (Glutose) 15 gm Q15M PRN BUCCAL DECREASED GLUCOSE; Start 08/25/17 at 14:00 Acetaminophen 650 mg 650 mg Q4H PRN PO PAIN AND OR ELEVATED TEMP Last administered on 08/26/17 17:06; Admin Dose 650 MG; Start 08/25/17 at 20:30 Fluconazole (Diflucan 200 Mg/ NS (Pmx)) 100 ml @ 100 mls/hr Q24H IVPB Last administered on 09/04/17 12:12; Admin Dose 100 MLS/HR; Start 08/27/17 at 13: 00 Insulin Glargine (Lantus) 9 unit DAILY@10 SC Last administered on 09/04/17 10 :04; Admin Dose 9 UNIT; Start 08/28/17 at 10:00 Miscellaneous Medication (Bax Susp) 10 ml TID PO Last administered on 20:35; Admin Dose 10 ML; Start 08/29/17 at 13:00 Citric Acid/ Sodium Citrate (Bicitra) 30 ml TID PO Last administered on 08:30; Admin Dose 30 ML; Start 08/29/17 at 21:00 Lidocaine 15 ml 15 ml QID PO Last administered on 09/04/17 20:35; Admin Dose 15 ML; Start 08/30/17 at 21:00; Stop 09/06/17 at 21:00 Leucovorin Calcium/Dextrose (Leucovorin Calcium Inj/D5W) 50 ml @ 200 mls/hr Q6H IV Last administered on 09/05/17 03:59; Admin Dose 200 MLS/HR; Start at 22:00 Morphine Sulfate 1 mg 1 mg Q4H PRN IV LESS THAN 5/10 PAIN Last administered on 09/01/17 13:10; Admin Dose 1 MG; Start 08/30/17 at 20:00 Cefepime HCl (Maxipime 1gm/50 ml (Pmx)) 50 ml @ 100 mls/hr Q24H IVPB Last administered on 09/05/17 08:19; Admin Dose 100 MLS/HR; Start 09/02/17 at 09: 00 Hydralazine HCl 10 mg 10 mg Q6H PRN IV ELEVATED SYSTOLIC BP Last administered on 09/05/17 00:39; Admin Dose 10 MG; Start 09/01/17 at 21:30 Daptomycin/Sodium Chloride (Cubicin/NS) 100 ml @ 200 mls/hr Q48H IVPB Last administered on 09/04/17 14:57; Admin Dose 200 MLS/HR; Start 09/02/17 at 15: 00 Silver Sulfadiazine (Thermazene 1% 400 Gm) 1 applic BID TOP Last administered on 09/04/17t 20:24; Admin Dose 1 APPLIC; Start 09/04/17 at 14:00 Hydralazine HCl (Apresoline) 10 mg Q4H PRN IV ELEVATED BLOOD PRESSURE; Start 09/05/17 at 01:00 OTF ROSAS NP Sep 05, 2017 10:43
[2017-09-05] MEDS ORDERED: VANCOMYCIN IV PER PHARMACY XX SCH (11:00)
--- NOTE | 2017-09-05 12:47 | CONS ---
Date/Time of Note Date/Time of Note DATE: 09/05/17 TIME: 12:45 Assessment/Plan Assessment/Plan Chief Complaint/Hosp Course 1. acute on-chronic kidney disease with no known baseline could be due to underlying sepsis/meds vs drug induced Cr improved significantly 2 Underlying acute tubular necrosis, possibly sepsis-induced due to cellulitis of the left lower extremity. 3 Likely underlying diabetic nephropathy, underlying hypertensive nephrosclerosis 4 pancytopenia could be due to sepsis, as well as drug-induced mthx/sulpha 5. Hyponatremia, resolved 6. Non gap Metabolic acidosis likely secondary to renal failure on bictra 7 Nephrotic range proteinuria 8 BLE atherosclerosis Problems: Additional Assessment/Plan 1.continue antibiotics 2.Optimization of kidney function Consultation Date/Type/Reason Admit Date/Time Aug 24, 2017 at 19:05 Initial Consult Date 08/31/17 Type of Consultation: nephrology Reason for Consultation Dr Alarcon Referring Provider: GIA DUMONT 24 HR Interval Summary Constitutional: poor po Exam/Review of Systems Vital Signs Vitals Vital Signs Date Time Temp Pulse Resp B/P Pulse Ox O2 Delivery O2 Flow Rate FiO2 09/05/17 12:05 89 09/05/17 11:57 98.2 18 162/70 98 09/05/17 08:43 15.0 100 09/05/17 08:43 Non Rebreather Mask Intake and Output 09/04/17 09/04/17 09/05/17 15:00 23:00 07:00 Intake Total 200 ml 1460 ml Output Total 600 ml Balance 200 ml 860 ml Exam Constitutional: alert, oriented ENMT: nl external ears & nose Neck: supple Respiratory: diminished breath sounds, wheezing Cardiovascular: regular rate and rhythm Musculoskeletal: swelling (BLE) Results Result Diagram: 09/05/17 0738 09/05/17 0738 Results 24 hrs Laboratory Tests Test 09/04/17 17:17 09/04/17 20:21 09/04/17 20:53 09/05/17 01:58 Bedside Glucose 122 108 101 Creatine Kinase 33 Creatine Kinase Index 7.0 Creatinine Kinase MB (Mass) 2.32 Troponin I 0.160 *H Test 09/05/17 02:40 09/05/17 07:38 09/05/17 08:09 09/05/17 10:33 Creatine Kinase 30 Creatine Kinase Index 5.8 Creatinine Kinase MB (Mass) 1.74 Troponin I 0.149 *H White Blood Count 35.8 H Red Blood Count 2.90 L Hemoglobin 8.6 L Hematocrit 25.2 L Mean Corpuscular Volume 86.9 Mean Corpuscular Hemoglobin 29.7 Mean Corpuscular Hemoglobin Concent 34.1 Red Cell Distribution Width 17.6 H Platelet Count 114 L Mean Platelet Volume 12.3 H Neutrophils % Segmented Neutrophils % (Manual) 36 L Band Neutrophils % (Manual) 8 H Lymphocytes % Lymphocytes % (Manual) 7 L Reactive Lymphocytes % (Manual) 1 H Monocytes % Monocytes % (Manual) 23 H Eosinophils % Eosinophils % (Manual) 2 Basophils % Metamyelocytes % (manual) 3 H Myelocytes % (Manual) 5 H Promyelocytes % (Manual) 15 H Nucleated Red Blood Cells % 1 H Neutrophils # Neutrophils # (Manual) 13.9 H Band Neutrophils # 2.8 H Absolute Lymphocytes (Manual) 2.5 Lymphocytes # Reactive Lymphocytes # 0.3 H Monocytes # Absolute Monocytes (Manual) 8.2 H Eosinophils # Basophils # Metamyelocytes # 1.0 H Myelocytes # 1.7 H Promyelocytes # 5.3 H Nucleated Red Blood Cells # Platelet Estimate DECREASED Anisocytosis 1+ Microcytosis 1+ Sodium Level 135 Potassium Level 3.6 Chloride Level 106 Carbon Dioxide Level 20 L Anion Gap 13 Blood Urea Nitrogen 30 H Creatinine 2.57 H Glucose Level 101 Calcium Level 8.2 L Phosphorus Level 3.9 Magnesium Level 2.1 Albumin 2.8 L Bedside Glucose 112 54 L Test 09/05/17 10:53 09/05/17 11:09 09/05/17 12:06 09/05/17 12:32 Bedside Glucose 94 89 69 L 120 Medications Medications Current Medications Ondansetron HCl (Zofran Inj) 4 mg Q6H PRN IV NAUSEA AND/OR VOMITING Last administered on 09/04/17 13:47; Admin Dose 4 MG; Start 08/25/17 at 08:00 Morphine Sulfate (morphine) 2 mg Q4H PRN IV 5-08/24 PAIN Last administered on 09/01/17 20:06; Admin Dose 2 MG; Start 08/25/17 at 08:00 Amlodipine Besylate (Norvasc) 5 mg DAILY PO Last administered on 09/05/17 08: 29; Admin Dose 5 MG; Start 08/25/17 at 09:00 Bisoprolol Fumarate (Zebeta) 10 mg DAILY PO Last administered on 09/04/17 08: 59; Admin Dose 10 MG; Start 08/25/17 at 09:00 Loratadine (Claritin) 10 mg DAILY PO Last administered on 09/05/17 08:19; Admin Dose 10 MG; Start 08/25/17 at 09:00 Losartan Potassium (Cozaar) 50 mg DAILY PO Last administered on 09/05/17 08: 19; Admin Dose 50 MG; Start 08/25/17 at 09:00 Diagnostic Test (Pha) (Accu-Chek) 1 ea 02 XX ; Start 08/26/17 at 02:00 Miscellaneous Information 1 ea NOTE XX ; Start 08/25/17 at 14:00 Glucose (Glutose) 15 gm Q15M PRN PO DECREASED GLUCOSE; Start 08/25/17 at 14:00 Glucose (Glutose) 22.5 gm Q15M PRN PO DECREASED GLUCOSE; Start 08/25/17 at 14: 00 Dextrose (D50w Syringe) 25 ml Q15M PRN IV DECREASED GLUCOSE Last administered on 09/05/17 12:07; Admin Dose 25 ML; Start 08/25/17 at 14:00 Dextrose (D50w Syringe) 50 ml Q15M PRN IV DECREASED GLUCOSE Last administered on 09/03/17 20:53; Admin Dose 50 ML; Start 08/25/17 at 14:00 Glucagon (Glucagen) 1 mg Q15M PRN IM DECREASED GLUCOSE; Start 08/25/17 at 14: 00 Glucose (Glutose) 15 gm Q15M PRN BUCCAL DECREASED GLUCOSE; Start 08/25/17 at 14:00 Acetaminophen 650 mg 650 mg Q4H PRN PO PAIN AND OR ELEVATED TEMP Last administered on 08/26/17 17:06; Admin Dose 650 MG; Start 08/25/17 at 20:30 Fluconazole (Diflucan 200 Mg/ NS (Pmx)) 100 ml @ 100 mls/hr Q24H IVPB Last administered on 09/04/17 12:12; Admin Dose 100 MLS/HR; Start 08/27/17 at 13: 00 Miscellaneous Medication (Bax Susp) 10 ml TID PO Last administered on 20:35; Admin Dose 10 ML; Start 08/29/17 at 13:00 Citric Acid/ Sodium Citrate (Bicitra) 30 ml TID PO Last administered on 08:30; Admin Dose 30 ML; Start 08/29/17 at 21:00 Lidocaine 15 ml 15 ml QID PO Last administered on 09/04/17 20:35; Admin Dose 15 ML; Start 08/30/17 at 21:00; Stop 09/06/17 at 21:00 Leucovorin Calcium/Dextrose (Leucovorin Calcium Inj/D5W) 50 ml @ 200 mls/hr Q6H IV Last administered on 09/05/17 10:31; Admin Dose 200 MLS/HR; Start at 22:00 Morphine Sulfate (morphine) 1 mg Q4H PRN IV LESS THAN 5/10 PAIN Last administered on 09/01/17 13:10; Admin Dose 1 MG; Start 08/30/17 at 20:00 Hydralazine HCl (Apresoline) 10 mg Q6H PRN IV ELEVATED SYSTOLIC BP Last administered on 09/05/17 00:39; Admin Dose 10 MG; Start 09/01/17 at 21:30 Silver Sulfadiazine (Thermazene 1% 400 Gm) 1 applic BID TOP Last administered on 09/05/17 10:23; Admin Dose 1 APPLIC; Start 09/04/17 at 14:00 Hydralazine HCl 10 mg 10 mg Q4H PRN IV ELEVATED BLOOD PRESSURE; Start at 01:00 Meropenem/Sodium Chloride 50 ml @ 200 mls/hr Q8 IVPB ; Start 09/05/17 at 14:00 ; Stop 09/05/17 at 16:00 Vancomycin HCl 1.5 gm/Sodium Chloride 250 ml @ 83.333 mls/ hr ONCE IVPB Last administered on 09/05/17 12:31; Admin Dose 83.333 MLS/HR; Start 09/05/17 at 13:00; Stop 09/05/17 at 23:33 Vancomycin HCl 100 ml @ 100 mls/hr Q24H IVPB ; Start 09/06/17 at 16:00 Meropenem/Sodium Chloride (Merrem 500mg/50 ml(Pmx)) 50 ml @ 100 mls/hr Q12 IVPB ; Start 09/05/17 at 23:00 Insulin Glargine (Lantus) 7 unit DAILY@10 SC ; Start 09/06/17 at 10:00 JUAN CARLOS THURMAN Sep 05, 2017 12:47
[2017-09-05] MEDS ORDERED: VANCOMYCIN 1.5 GM in SOD CHLORIDE 0.9% 250 ML IVPB SCH (13:00)
[2017-09-05] MEDS ORDERED: MEROPENEM 500MG/50 ML (PMX) 50 ML IVPB SCH (14:00)
--- NOTE | 2017-09-05 14:34 | PN ---
Date/Time of Note Date/Time of Note DATE: 09/05/17 TIME: 14:31 Assessment/Plan VTE Prophylaxis VTE Prophylaxis Intervention: contraindicated Lines/Catheters IV Catheter Type (from Nrsg): Saline Lock Urinary Cath still in place: Yes Reason Cath still needed: skin wounds contaminated by urine Assessment/Plan Assessment/Plan 1. Bilateral Pneumonia - Patient found to have b/l PNA on chest xray - On antibiotics and changed to Meropenem per ID - Pulmonology consultation placed and appreciated recommendations - On Neb treatments - Will started Solumedrol 40mg IV BID 2. Left lower extremity cellulitis - ID and Surgery on board. Recommendations appreciated - Antibiotic changed to Daptomycin and advised to keep leg elevated - CT LE showed cellulitis and no evidence of osteomyelitis. Xray LE also performed and no osteomyelitis appreciated. 3. Mucositis 2/2 methotrexate use- improving - lidocaine viscous and diphen/lido/mal oral solution ordered. Morphine if pain remain intolerable for PO intake - Tolerating pureed diet and will advance as tolerated 4. Pancytopenia- improving - No transfusions needed today - Hematology on board and recommendations appreciated. If counts do not improve and still requiring transfusions, considering BM bx - Hgb 8.6, Plt 114 - s/p multiple blood transfusions and plt transfusions. . 5. Neutropenia- resolved - WBC >30 and Neupogen no longer on board - Will continue to monitor - Heme on board and recommendations appreciated 6. BK vs BK on CKD - Nephrology on board and recommendations appreciated. - Cr stable at 2.5 - Monitor UOP - HIV negative, KASSY negative 7. Hypokalemia - stable 8. Eosinophilia - normalized after d/c sulfasalazine and mtx 9. Vascular insufficiency - Vascular surgery on board and recommendations appreciated. No current vascular intervention as the patient has not developed any gangrene or ulcers - Will need to follow up as outpatient due to LE atherosclerosis Subjective 24 Hr Interval Summary Free Text/Dictation Patient had episode of chest pain overnight and found to have b/l PNA on chest xray. Receiving breathing treatments and appears comfortably. Exam/Review of Systems Vital Signs Vitals Vital Signs Date Time Temp Pulse Resp B/P Pulse Ox O2 Delivery O2 Flow Rate FiO2 09/05/17 12:05 89 09/05/17 11:57 98.2 18 162/70 98 09/05/17 08:43 15.0 100 09/05/17 08:43 Non Rebreather Mask Intake and Output 09/04/17 09/04/17 09/05/17 15:00 23:00 07:00 Intake Total 200 ml 1460 ml Output Total 600 ml Balance 200 ml 860 ml Exam Gen : Flat affect, dry,cracked lips with no bleeding. HEENT: NC/AT, EOM intact, PERRL Mouth: mucositis improving. Neck: Supple, full ROM Respiratory: CTAB, slight expiratory wheezes, no crackles Cardiovascular: nl pulses, regular rate and rhythm. no murmurs Gastrointestinal: Soft, NT, no rebound or guarding. non distended Extremities: LLE erythema, warmth, and tenderness- improving. Dry skin with chronic hyperpigmentation Results Result Diagram: 09/05/1738 09/05/1738 Results 24 hrs Laboratory Tests Test 09/04/17 17:17 09/04/17 20:21 09/04/17 20:53 09/05/17 01:58 Bedside Glucose 122 108 101 Creatine Kinase 33 Creatine Kinase Index 7.0 Creatinine Kinase MB (Mass) 2.32 Troponin I 0.160 *H Test 09/05/17 02:40 09/05/17 07:38 09/05/17 08:09 09/05/17 10:33 Creatine Kinase 30 Creatine Kinase Index 5.8 Creatinine Kinase MB (Mass) 1.74 Troponin I 0.149 *H White Blood Count 35.8 H Red Blood Count 2.90 L Hemoglobin 8.6 L Hematocrit 25.2 L Mean Corpuscular Volume 86.9 Mean Corpuscular Hemoglobin 29.7 Mean Corpuscular Hemoglobin Concent 34.1 Red Cell Distribution Width 17.6 H Platelet Count 114 L Mean Platelet Volume 12.3 H Neutrophils % Segmented Neutrophils % (Manual) 36 L Band Neutrophils % (Manual) 8 H Lymphocytes % Lymphocytes % (Manual) 7 L Reactive Lymphocytes % (Manual) 1 H Monocytes % Monocytes % (Manual) 23 H Eosinophils % Eosinophils % (Manual) 2 Basophils % Metamyelocytes % (manual) 3 H Myelocytes % (Manual) 5 H Promyelocytes % (Manual) 15 H Nucleated Red Blood Cells % 1 H Neutrophils # Neutrophils # (Manual) 13.9 H Band Neutrophils # 2.8 H Absolute Lymphocytes (Manual) 2.5 Lymphocytes # Reactive Lymphocytes # 0.3 H Monocytes # Absolute Monocytes (Manual) 8.2 H Eosinophils # Basophils # Metamyelocytes # 1.0 H Myelocytes # 1.7 H Promyelocytes # 5.3 H Nucleated Red Blood Cells # Platelet Estimate DECREASED Anisocytosis 1+ Microcytosis 1+ Sodium Level 135 Potassium Level 3.6 Chloride Level 106 Carbon Dioxide Level 20 L Anion Gap 13 Blood Urea Nitrogen 30 H Creatinine 2.57 H Glucose Level 101 Calcium Level 8.2 L Phosphorus Level 3.9 Magnesium Level 2.1 Albumin 2.8 L Bedside Glucose 112 54 L Test 09/05/17 10:53 09/05/17 11:09 09/05/17 12:06 09/05/17 12:18 Bedside Glucose 94 89 69 L Creatine Kinase 26 Creatine Kinase Index 5.3 Creatinine Kinase MB (Mass) 1.39 Troponin I 0.164 *H Test 09/05/17 12:32 Bedside Glucose 120 Medications Medications Current Medications Ondansetron HCl (Zofran Inj) 4 mg Q6H PRN IV NAUSEA AND/OR VOMITING Last administered on 09/04/17 13:47; Admin Dose 4 MG; Start 08/25/17 at 08:00 Morphine Sulfate (morphine) 2 mg Q4H PRN IV PAIN Last administered on 09/01/17 20:06; Admin Dose 2 MG; Start 08/25/17 at 08:00 Amlodipine Besylate (Norvasc) 5 mg DAILY PO Last administered on 09/05/17 08: 29; Admin Dose 5 MG; Start 08/25/17 at 09:00 Bisoprolol Fumarate (Zebeta) 10 mg DAILY PO Last administered on 09/04/17 08: 59; Admin Dose 10 MG; Start 08/25/17 at 09:00 Loratadine (Claritin) 10 mg DAILY PO Last administered on 09/05/17 08:19; Admin Dose 10 MG; Start 08/25/17 at 09:00 Losartan Potassium (Cozaar) 50 mg DAILY PO Last administered on 09/05/17 08: 19; Admin Dose 50 MG; Start 08/25/17 at 09:00 Diagnostic Test (Pha) (Accu-Chek) 1 ea 02 XX ; Start 08/26/17 at 02:00 Miscellaneous Information 1 ea NOTE XX ; Start 08/25/17 at 14:00 Glucose (Glutose) 15 gm Q15M PRN PO DECREASED GLUCOSE; Start 08/25/17 at 14:00 Glucose (Glutose) 22.5 gm Q15M PRN PO DECREASED GLUCOSE; Start 08/25/17 at 14: 00 Dextrose (D50w Syringe) 25 ml Q15M PRN IV DECREASED GLUCOSE Last administered on 09/05/17 12:07; Admin Dose 25 ML; Start 08/25/17 at 14:00 Dextrose (D50w Syringe) 50 ml Q15M PRN IV DECREASED GLUCOSE Last administered on 09/03/17 20:53; Admin Dose 50 ML; Start 08/25/17 at 14:00 Glucagon (Glucagen) 1 mg Q15M PRN IM DECREASED GLUCOSE; Start 08/25/17 at 14: 00 Glucose (Glutose) 15 gm Q15M PRN BUCCAL DECREASED GLUCOSE; Start 08/25/17 at 14:00 Acetaminophen 650 mg 650 mg Q4H PRN PO PAIN AND OR ELEVATED TEMP Last administered on 08/26/17 17:06; Admin Dose 650 MG; Start 08/25/17 at 20:30 Fluconazole (Diflucan 200 Mg/ NS (Pmx)) 100 ml @ 100 mls/hr Q24H IVPB Last administered on 09/04/17 12:12; Admin Dose 100 MLS/HR; Start 08/27/17 at 13: 00 Miscellaneous Medication (Bax Susp) 10 ml TID PO Last administered on 13:16; Admin Dose 10 ML; Start 08/29/17 at 13:00 Citric Acid/ Sodium Citrate (Bicitra) 30 ml TID PO Last administered on 13:17; Admin Dose 30 ML; Start 08/29/17 at 21:00 Lidocaine 15 ml 15 ml QID PO Last administered on 09/05/17 13:16; Admin Dose 15 ML; Start 08/30/17 at 21:00; Stop 09/06/17 at 21:00 Leucovorin Calcium/Dextrose (Leucovorin Calcium Inj/D5W) 50 ml @ 200 mls/hr Q6H IV Last administered on 09/05/17 10:31; Admin Dose 200 MLS/HR; Start at 22:00 Morphine Sulfate (morphine) 1 mg Q4H PRN IV LESS THAN 5/10 PAIN Last administered on 09/01/17 13:10; Admin Dose 1 MG; Start 08/30/17 at 20:00 Hydralazine HCl (Apresoline) 10 mg Q6H PRN IV ELEVATED SYSTOLIC BP Last administered on 09/05/17 00:39; Admin Dose 10 MG; Start 09/01/17 at 21:30 Silver Sulfadiazine (Thermazene 1% 400 Gm) 1 applic BID TOP Last administered on 09/05/17 10:23; Admin Dose 1 APPLIC; Start 09/04/17 at 14:00 Hydralazine HCl 10 mg 10 mg Q4H PRN IV ELEVATED BLOOD PRESSURE; Start at 01:00 Meropenem/Sodium Chloride 50 ml @ 200 mls/hr Q8 IVPB Last administered on 14:12; Admin Dose 200 MLS/HR; Start 09/05/17 at 14:00; Stop 09/05/17 at 16:00 Vancomycin HCl 1.5 gm/Sodium Chloride 250 ml @ 83.333 mls/ hr ONCE IVPB Last administered on 09/05/17 12:31; Admin Dose 83.333 MLS/HR; Start 09/05/17 at 13:00; Stop 09/05/17 at 23:33 Meropenem/Sodium Chloride (Merrem 500mg/50 ml(Pmx)) 50 ml @ 100 mls/hr Q12 IVPB ; Start 09/05/17 at 23:00 Insulin Glargine 7 unit 7 unit DAILY@10 SC ; Start 09/06/17 at 10:00 Vancomycin HCl/ Sodium Chloride (Vancocin/NS) 250 ml @ 83.333 mls/ hr Q72H IVPB ; Start 09/08/17 at 13:00 JOANA BARKLEY MD Sep 05, 2017 14:33
--- NOTE | 2017-09-05 15:40 | PN ---
Date/Time of Note Date/Time of Note DATE: 09/05/17 TIME: 15:38 Assessment/Plan VTE Prophylaxis VTE Prophylaxis Intervention: contraindicated Lines/Catheters IV Catheter Type (from Nrs): Saline Lock Urinary Cath still in place: Yes Reason Cath still needed: other (indicate) Assessment/Plan Assessment/Plan 61 yo woman admitted for cellulitis of lower left leg. History of diabetes, hypertension, obesity, azotemia, abnormal liver studies and methotrexate administration for unclear diagnosis ( leg pain) found to have leukopenia, anemia and thrombocytopenia >Leukopenia Numerically improved, off neutropenic precautions Continue to monitor CBC >Anemia Previous examination was otherwise unrevealing, and more suggestive of inflammation Consider prophylactic blood transfusion for hemoglobin less than 7 g/dL Continue to monitor CBC >Thrombocytopenia Markedly improved Contined to monitor CBC Subjective 24 Hr Interval Summary Free Text/Dictation Patient awake, notes moderate shortness of breath, currently on nebulizer Exam/Review of Systems Vital Signs Vitals Vital Signs Date Time Temp Pulse Resp B/P Pulse Ox O2 Delivery O2 Flow Rate FiO2 09/05/17 15:07 15.0 100 09/05/17 15:07 Non Rebreather Mask 09/05/17 12:05 89 09/05/17 11:57 98.2 18 162/70 98 Intake and Output 09/04/17 09/04/17 09/05/17 15:00 23:00 07:00 Intake Total 200 ml 1460 ml Output Total 600 ml Balance 200 ml 860 ml Exam Constitutional: alert, oriented Psych: no complaints Head: atraumatic, normocephalic Eyes: EOMI, nl conjunctiva Respiratory: crackles/rales, normal air movement Cardiovascular: nl pulses, regular rate and rhythm Gastrointestinal: non-tender, soft Extremities: edema, normal pulses Results Result Diagram: 09/05/1738 09/05/1738 Results 24 hrs Laboratory Tests Test 09/04/17 17:17 09/04/17 20:21 09/04/17 20:53 09/05/17 01:58 Bedside Glucose 122 108 101 Creatine Kinase 33 Creatine Kinase Index 7.0 Creatinine Kinase MB (Mass) 2.32 Troponin I 0.160 *H Test 09/05/17 02:40 09/05/17 07:38 09/05/17 08:09 09/05/17 10:33 Creatine Kinase 30 Creatine Kinase Index 5.8 Creatinine Kinase MB (Mass) 1.74 Troponin I 0.149 *H White Blood Count 35.8 H Red Blood Count 2.90 L Hemoglobin 8.6 L Hematocrit 25.2 L Mean Corpuscular Volume 86.9 Mean Corpuscular Hemoglobin 29.7 Mean Corpuscular Hemoglobin Concent 34.1 Red Cell Distribution Width 17.6 H Platelet Count 114 L Mean Platelet Volume 12.3 H Neutrophils % Segmented Neutrophils % (Manual) 36 L Band Neutrophils % (Manual) 8 H Lymphocytes % Lymphocytes % (Manual) 7 L Reactive Lymphocytes % (Manual) 1 H Monocytes % Monocytes % (Manual) 23 H Eosinophils % Eosinophils % (Manual) 2 Basophils % Metamyelocytes % (manual) 3 H Myelocytes % (Manual) 5 H Promyelocytes % (Manual) 15 H Nucleated Red Blood Cells % 1 H Neutrophils # Neutrophils # (Manual) 13.9 H Band Neutrophils # 2.8 H Absolute Lymphocytes (Manual) 2.5 Lymphocytes # Reactive Lymphocytes # 0.3 H Monocytes # Absolute Monocytes (Manual) 8.2 H Eosinophils # Basophils # Metamyelocytes # 1.0 H Myelocytes # 1.7 H Promyelocytes # 5.3 H Nucleated Red Blood Cells # Platelet Estimate DECREASED Anisocytosis 1+ Microcytosis 1+ Sodium Level 135 Potassium Level 3.6 Chloride Level 106 Carbon Dioxide Level 20 L Anion Gap 13 Blood Urea Nitrogen 30 H Creatinine 2.57 H Glucose Level 101 Calcium Level 8.2 L Phosphorus Level 3.9 Magnesium Level 2.1 Albumin 2.8 L Bedside Glucose 112 54 L Test 09/05/17 10:53 09/05/17 11:09 09/05/17 12:06 09/05/17 12:18 Bedside Glucose 94 89 69 L Creatine Kinase 26 Creatine Kinase Index 5.3 Creatinine Kinase MB (Mass) 1.39 Troponin I 0.164 *H Test 09/05/17 12:32 Bedside Glucose 120 Medications Medications Current Medications Ondansetron HCl (Zofran Inj) 4 mg Q6H PRN IV NAUSEA AND/OR VOMITING Last administered on 09/04/17 13:47; Admin Dose 4 MG; Start 08/25/17 at 08:00 Morphine Sulfate (morphine) 2 mg Q4H PRN IV -08/24 PAIN Last administered on 09/01/17 20:06; Admin Dose 2 MG; Start 08/25/17 at 08:00 Amlodipine Besylate (Norvasc) 5 mg DAILY PO Last administered on 09/05/17 08: 29; Admin Dose 5 MG; Start 08/25/17 at 09:00 Bisoprolol Fumarate (Zebeta) 10 mg DAILY PO Last administered on 09/04/17 08: 59; Admin Dose 10 MG; Start 08/25/17 at 09:00 Loratadine (Claritin) 10 mg DAILY PO Last administered on 09/05/17 08:19; Admin Dose 10 MG; Start 08/25/17 at 09:00 Losartan Potassium (Cozaar) 50 mg DAILY PO Last administered on 09/05/17 08: 19; Admin Dose 50 MG; Start 08/25/17 at 09:00 Diagnostic Test (Pha) (Accu-Chek) 1 ea 02 XX ; Start 08/26/17 at 02:00 Miscellaneous Information 1 ea NOTE XX ; Start 08/25/17 at 14:00 Glucose (Glutose) 15 gm Q15M PRN PO DECREASED GLUCOSE; Start 08/25/17 at 14:00 Glucose (Glutose) 22.5 gm Q15M PRN PO DECREASED GLUCOSE; Start 08/25/17 at 14: 00 Dextrose (D50w Syringe) 25 ml Q15M PRN IV DECREASED GLUCOSE Last administered on 09/05/17 12:07; Admin Dose 25 ML; Start 08/25/17 at 14:00 Dextrose (D50w Syringe) 50 ml Q15M PRN IV DECREASED GLUCOSE Last administered on 09/03/17 20:53; Admin Dose 50 ML; Start 08/25/17 at 14:00 Glucagon (Glucagen) 1 mg Q15M PRN IM DECREASED GLUCOSE; Start 08/25/17 at 14: 00 Glucose (Glutose) 15 gm Q15M PRN BUCCAL DECREASED GLUCOSE; Start 08/25/17 at 14:00 Acetaminophen 650 mg 650 mg Q4H PRN PO PAIN AND OR ELEVATED TEMP Last administered on 08/26/17 17:06; Admin Dose 650 MG; Start 08/25/17 at 20:30 Fluconazole (Diflucan 200 Mg/ NS (Pmx)) 100 ml @ 100 mls/hr Q24H IVPB Last administered on 09/04/17 12:12; Admin Dose 100 MLS/HR; Start 08/27/17 at 13: 00 Miscellaneous Medication (Bax Susp) 10 ml TID PO Last administered on 13:16; Admin Dose 10 ML; Start 08/29/17 at 13:00 Citric Acid/ Sodium Citrate (Bicitra) 30 ml TID PO Last administered on 13:17; Admin Dose 30 ML; Start 08/29/17 at 21:00 Lidocaine 15 ml 15 ml QID PO Last administered on 09/05/17 13:16; Admin Dose 15 ML; Start 08/30/17 at 21:00; Stop 09/06/17 at 21:00 Leucovorin Calcium/Dextrose (Leucovorin Calcium Inj/D5W) 50 ml @ 200 mls/hr Q6H IV Last administered on 09/05/17 10:31; Admin Dose 200 MLS/HR; Start at 22:00 Morphine Sulfate (morphine) 1 mg Q4H PRN IV LESS THAN 5/10 PAIN Last administered on 09/01/17 13:10; Admin Dose 1 MG; Start 08/30/17 at 20:00 Hydralazine HCl (Apresoline) 10 mg Q6H PRN IV ELEVATED SYSTOLIC BP Last administered on 09/05/17 00:39; Admin Dose 10 MG; Start 09/01/17 at 21:30 Silver Sulfadiazine (Thermazene 1% 400 Gm) 1 applic BID TOP Last administered on 09/05/17 10:23; Admin Dose 1 APPLIC; Start 09/04/17 at 14:00 Hydralazine HCl 10 mg 10 mg Q4H PRN IV ELEVATED BLOOD PRESSURE; Start at 01:00 Meropenem/Sodium Chloride 50 ml @ 200 mls/hr Q8 IVPB Last administered on 14:12; Admin Dose 200 MLS/HR; Start 09/05/17 at 14:00; Stop 09/05/17 at 16:00 Vancomycin HCl 1.5 gm/Sodium Chloride 250 ml @ 83.333 mls/ hr ONCE IVPB Last administered on 09/05/17 12:31; Admin Dose 83.333 MLS/HR; Start 09/05/17 at 13:00; Stop 09/05/17 at 23:33 Meropenem/Sodium Chloride (Merrem 500mg/50 ml(Pmx)) 50 ml @ 100 mls/hr Q12 IVPB ; Start 09/05/17 at 23:00 Insulin Glargine 7 unit 7 unit DAILY@10 SC ; Start 09/06/17 at 10:00 Vancomycin HCl/ Sodium Chloride (Vancocin/NS) 250 ml @ 83.333 mls/ hr Q72H IVPB ; Start 09/08/17 at 13:00 Methylprednisolone Sodium Succinate (Solu-Medrol) 40 mg Q12 IV ; Start at 15:00 JULIO TRONCOSO MD Sep 05, 2017 15:40
[2017-09-05] MEDS: FLUCONAZOLE 200 MG/NS (PMX) 100 ML IVPB SCH (15:51)
[2017-09-05] MEDS ORDERED: LIDOCAINE 1% (MPF) 5 ML VIAL SC ONE (16:00)
[2017-09-05] MEDS ORDERED: FUROSEMIDE 40 MG TAB PO ONE (16:30)
--- NOTE | 2017-09-05 16:42 | RADRPT ---
Vent Rate: 91 bpm RR Interval: 0 msec AR Interval: 140 msec QRS Duration: 84 msec QT Interval: 382 msec QTC Interval: 469 msec P-R-T [place]: 53 - 51 - 20 degrees Normal sinus rhythm Prolonged QT Abnormal ECG Electronically Signed By: Tenzin Villa [id number]
--- NOTE | 2017-09-05 16:42 | RADRPT ---
Vent Rate: 91 bpm RR Interval: 0 msec HI Interval: 140 msec QRS Duration: 84 msec QT Interval: 382 msec QTC Interval: 469 msec P-R-T [place]: 53 - 51 - 20 degrees Normal sinus rhythm Prolonged QT Abnormal ECG Electronically Signed By: Tenzin Villa [id number]
--- NOTE | 2017-09-05 16:42 | RADRPT ---
Vent Rate: 91 bpm RR Interval: 0 msec NE Interval: 140 msec QRS Duration: 84 msec QT Interval: 382 msec QTC Interval: 469 msec P-R-T [place]: 53 - 51 - 20 degrees Normal sinus rhythm Prolonged QT Abnormal ECG Electronically Signed By: Tenzin Villa [id number]
[2017-09-05] MEDS: METHYLPREDNISOLONE 40 MG INJ IV SCH ×2 (16:56→20:59)
--- NOTE | 2017-09-05 19:37 | CONS ---
DATE OF ADMISSION: 08/24/2017 DATE OF CONSULTATION: 09/05/2017 PULMONARY CONSULTATION HISTORY OF PRESENT ILLNESS: Briefly, this is a 61-year-old female with a history of hyperten gabriela, diabetes, chronic kidney disease, who presented on 08/24/2017 with a multitude of findings inc luding sepsis from cellulitis of the left lower extremity, pancytopenia, abnormal liver tests and wa s noted to be on high-dose methotrexate for unclear reasons. At that point, her pancytopenia was at tributed to methotrexate use, and she was treated appropriately with antibiotics for cellulitis, as well as receiving Neupogen for her cytopenia. Furthermore, she was evaluated by surgery for her samantha lulitis, however, did not have any evidence of necrotizing fasciitis. More recently, last night, evelyne luke was noted to have some chest pain and increasing shortness of breath with increasing oxygen requir ements. Chest x-ray was obtained which showed evidence of pulmonary venous congestion; however, cou ld not rule out coexisting pneumonia. PAST MEDICAL HISTORY: As noted above. MEDICATIONS: Please see MAR. ALLERGIES: NO KNOWN DRUG ALLERGIES. SOCIAL HISTORY: No tobacco, alcohol or illicit drug use. FAMILY HISTORY: Noncontributory. REVIEW OF SYSTEMS: As noted in HPI. PHYSICAL EXAMINATION: VITAL SIGNS: Blood pressure 162/70, oxygen saturation is 100% on 15-liter nonrebreather, heart rate is 89, temperature is 98.2. HEENT: Normocephalic, atraumatic. NECK: Supple. No thyromegaly. Jugular venous pressures are elevated with pulses to the angle of t he jaw. CARDIOVASCULAR: Regular rate and rhythm with a harsh III/ systolic murmur noted. CHEST: Diffuse wheezing and bilateral lower lung field crackles heard approximately [place] up. ABDOMEN: Soft, nontender, obese. EXTREMITIES: There is 2+ upper and lower extremity edema and some chronic venous insufficiency mims ges of the left lower extremity. LABORATORY DATA: Troponin has been elevated at 0.16 and 0.15. BUN is 30, creatinine is 2.57. Coag s on admission, INR was 1.23. WBCs 39, hemoglobin is 8.6, platelets are 114. IMAGING: Chest x-ray as noted shows increasing pulmonary venous congestion, reticular changes; jacques jaime, cannot rule out an element of patchy airspace disease coexisting. IMPRESSION: Hypoxemic respiratory insufficiency in the setting of hypertension, chronic kidney dise ase and volume overload. I suspect that this is all related to her pulmonary edema with some cardia c wheezing and demand ischemia. However, I cannot definitively exclude a coexisting aspiration pneu monia. Also doubt transfusion-related acute lung injury (TRALI). RECOMMENDATIONS: 1. Agree with continuation of antibiotics, although I do not suspect that this is a pneumonic proce ss. 2. Would pursue aggressive diuresis with Lasix. 3. Would continue serial troponins. 4. Would maximize BP control as I believe much of this may be mediated from her hypertension. 5. Would obtain a 2D echo to better evaluate ejection fraction and also in order to better optimize antihypertensive medications that may address her underlying cardiac physiology. Dictated By: SHABANA CLAYTON MD NK/NTS Conf#: [id number] DID#: [id number] CC: GIA DUMONT MD; TANI TOLEDO MD; RUBIA;*[facility]*
--- NOTE | 2017-09-05 22:32 | PN ---
Date/Time of Note Date/Time of Note DATE: 09/05/17 TIME: 22:32 Assessment/Plan Lines/Catheters IV Catheter Type (from [facility]): Saline Lock Reina in Place (from [facility]): Yes Assessment/Plan Chief Complaint/Hosp Course 1. Left lower extremity cellulitis and edema with history of diabetes; No weeping/open areas; minimally improved; CT lower extremity: no abscess -IV antibiotics -Elevate above heart level 2. Pancytopenia with history of unknown reason for methotrexate therapy: improved, now with leukocytosis; s/p PRBC and plt transfusions -per heme 3. Diabetes -Nutrition medication optimization -Encourage weight loss 4. Hypertension -Nutrition medication optimization -Encourage weight loss 5. BK on Chronic kidney disease: -Judicious fluid management -Avoid nephrotoxic agents 6. Abnormal LFTs of unknown etiology may be secondary to fatty liver -Monitor 7. Hypoalbuminemia with hypocalcemia -Nutritional optimization 8. Pulm edema w ?bilat pna -pulm toilet -abx -resp tx -per pulm Thank you. Patient seen and examined in collaboration with Dr. William Russ. Problems: Subjective 24 Hr Interval Summary Episode of hypoglycemia and lethargy in am - improved. Left leg continuing to improve. SOB w exertion. No fevers, chills, congested cough, cp, palpitations, walsh, dizziness, n/v/d/dysuria. Exam/Review of Systems Vital Signs Vitals Vital Signs Date Time Temp Pulse Resp B/P Pulse Ox O2 Delivery O2 Flow Rate FiO2 09/12/17 01:07 87 18 95 Nasal Cannula 3.0 09/12/17 00:00 98.6 139/77 09/10/17 20:13 30 Intake and Output 09/11/17 09/11/17 09/12/17 15:00 23:00 07:00 Intake Total 50 ml 1300 ml Output Total 600 ml Balance 50 ml 700 ml Exam Free Text/Dictation Constitutional: obese, other (Awake), No distress Psych: nl mood/affect, No anxiety Head: atraumatic, normocephalic Eyes: EOMI, PERRL, nl conjunctiva, No icteric ENMT: mucosa pink and dry, nl external ears & nose, nl lips & teeth Neck: non-tender, supple, No jvd Respiratory: normal air movement, No congested cough, No labored breathing, No wheezing Cardiovascular: edema (Left lower extremity edema much improved), regular rate and rhythm Gastrointestinal: non-tender, soft, No rebound or guarding Musculoskeletal: joint tenderness (Left ankle), No nl extremities to inspection Extremities: edema, normal pulses, pitting pedal edema, tenderness, No calf tenderness Neurological: nl mental status, nl strength Skin: rash or lesions (Left lower extremity-discoloration), No diaphoresis, No nl turgor Lymph: nl lymph nodes, nontender Results Result Diagram: 09/11/17 0557 09/11/17 0557 EDMUND KINCAID NP Sep 05, 2017 22:32
[2017-09-05] MEDS: MEROPENEM 500MG/50 ML (PMX) 50 ML IVPB SCH (23:50)
[2017-09-06] VITALS (10 sets, daily range): BP systolic 122–166; BP diastolic 70–81; PULSE 90–95; RESP 21–23
[2017-09-06] MEDS: ALBUTEROL/IPRATROPIUM (NEB) 3 ML AMP HHN SCH ×6 (00:43→21:20)
[2017-09-06] MEDS: ACCU-CHEK XX SCH (02:00)
[2017-09-06] MEDS: DEXTROSE 5% IV SCH ×3 (04:51→16:15)
[2017-09-06] MEDS: LEUCOVORIN CALCIUM IV SCH ×3 (04:51→16:15)
[2017-09-06] MEDS: FUROSEMIDE 40 MG INJ IV SCH ×2 (06:28→17:32)
--- NOTE | 2017-09-06 08:12 | RADRPT ---
PROCEDURE: XR Chest. CLINICAL INDICATION: Shortness of breath. TECHNIQUE: Single frontal view. COMPARISON: 09/04/2017. FINDINGS: There is patchy consolidation in the right upper lobe consistent with pneumonia, unchanged. There is new consolidation in the left mid and lower lung zones consistent with pneumonia. Bilateral interst itial disease may indicate pulmonary edema. The heart is enlarged. There are small bilateral pleural effusions. There is no pneumothorax. IMPRESSION: 1. Worse appearance of the lungs. 2. No other change from 09/04/2017. RPTAT: QQ .Justice Carrizales MD, MD Date Time Electronically viewed and signed by .Justice Carrizales MD, MD on 09/06/2017 08:11 .R/
[2017-09-06] MEDS: CITRIC ACID/NA CITRATE 30 ML CUP PO SCH ×3 (08:16→21:24)
[2017-09-06] MEDS: DIPHENHYD/MYLANTA/LIDO (PO SYG) PO SCH ×3 (08:16→21:24)
[2017-09-06] MEDS: MEROPENEM 500MG/50 ML (PMX) 50 ML IVPB SCH ×2 (08:17→21:24)
[2017-09-06] MEDS: LORATADINE 10 MG TAB PO SCH (08:18)
[2017-09-06] MEDS: METHYLPREDNISOLONE 40 MG INJ IV SCH (08:18)
[2017-09-06] MEDS: LOSARTAN 50 MG TAB PO SCH (08:18)
[2017-09-06] MEDS: AMLODIPINE 5 MG TAB PO SCH (08:18)
[2017-09-06] MEDS: SILVER SULFADIAZINE 1% 400 GM CR TOP SCH ×2 (08:19→21:26)
[2017-09-06] MEDS: INSULIN ASPART [NOVOLOG] 3 ML PEN SC SCH ×4 (08:32→21:27)
[2017-09-06] MEDS: BISOPROLOL 5 MG TAB PO SCH (09:55)
[2017-09-06] MEDS: LIDOCAINE 2% VISC 15 ML CUP PO SCH ×4 (09:55→21:24)
[2017-09-06] MEDS ORDERED: INSULIN GLARGINE [LANtus] 3 ML PEN SC SCH (10:00)
--- NOTE | 2017-09-06 11:59 | PN ---
DATE: 09/03/2017 SUBJECTIVE: Patient is awake. Family at bedside. She denies pain, discomfort and looks comfortabl e, no fevers. LABORATORY DATA: WBC 23.4, platelets 87, BUN 32, creatinine 2.37. ANTIMICROBIALS: Patient was on vancomycin, that was changed to daptomycin. She is also on cefepime and fluconazole. PHYSICAL EXAMINATION: GENERAL: This is a well-developed, well-nourished, elderly woman who is alert, in no distress. HEENT: Head atraumatic, normocephalic. Sclerae anicteric. Buccal mucosa pink. NECK: Supple. CHEST: Rise symmetrical. Breath sounds diminished to bases. HEART: S1, S2. ABDOMEN: Soft, bowel tones present. EXTREMITIES: Left lower extremity still edema and erythema. ASSESSMENT: 1. Systemic inflammatory response syndrome. 2. Left lower extremity cellulitis. No evidence of DVT. 3. Resolving pancytopenia. 4. Status post neutropenia. 5. Acute possible chronic kidney disease. 6. Diabetes. 7. Hypertension. PLAN: Patient remains clinically stable, overall clinically improving. Responding to blood product and Neupogen, that was discontinued today. She is being followed by multiple consultants. Continu e present care. Continue left lower extremity elevation. Dictated By: CODY VASQUEZ ASSOCIATE APPLICATION DEVELOPER for [employer] Conf#: [id number] DID#: [id number]
--- NOTE | 2017-09-06 11:59 | PN ---
DATE: 09/03/2017 SUBJECTIVE: Patient is awake. Family at bedside. She denies pain, discomfort and looks comfortabl e, no fevers. LABORATORY DATA: WBC 23.4, platelets 87, BUN 32, creatinine 2.37. ANTIMICROBIALS: Patient was on vancomycin, that was changed to daptomycin. She is also on cefepime and fluconazole. PHYSICAL EXAMINATION: GENERAL: This is a well-developed, well-nourished, elderly woman who is alert, in no distress. HEENT: Head atraumatic, normocephalic. Sclerae anicteric. Buccal mucosa pink. NECK: Supple. CHEST: Rise symmetrical. Breath sounds diminished to bases. HEART: S1, S2. ABDOMEN: Soft, bowel tones present. EXTREMITIES: Left lower extremity still edema and erythema. ASSESSMENT: 1. Systemic inflammatory response syndrome. 2. Left lower extremity cellulitis. No evidence of DVT. 3. Resolving pancytopenia. 4. Status post neutropenia. 5. Acute possible chronic kidney disease. 6. Diabetes. 7. Hypertension. PLAN: Patient remains clinically stable, overall clinically improving. Responding to blood product and Neupogen, that was discontinued today. She is being followed by multiple consultants. Continu e present care. Continue left lower extremity elevation. Dictated By: CODY VASQUEZ METAL POLISHER AND BUFFER APPRENTICE for [employer] Conf#: [id number] DID#: [id number]
--- NOTE | 2017-09-06 11:59 | PN ---
DATE: 09/03/2017 SUBJECTIVE: Patient is awake. Family at bedside. She denies pain, discomfort and looks comfortabl e, no fevers. LABORATORY DATA: WBC 23.4, platelets 87, BUN 32, creatinine 2.37. ANTIMICROBIALS: Patient was on vancomycin, that was changed to daptomycin. She is also on cefepime and fluconazole. PHYSICAL EXAMINATION: GENERAL: This is a well-developed, well-nourished, elderly woman who is alert, in no distress. HEENT: Head atraumatic, normocephalic. Sclerae anicteric. Buccal mucosa pink. NECK: Supple. CHEST: Rise symmetrical. Breath sounds diminished to bases. HEART: S1, S2. ABDOMEN: Soft, bowel tones present. EXTREMITIES: Left lower extremity still edema and erythema. ASSESSMENT: 1. Systemic inflammatory response syndrome. 2. Left lower extremity cellulitis. No evidence of DVT. 3. Resolving pancytopenia. 4. Status post neutropenia. 5. Acute possible chronic kidney disease. 6. Diabetes. 7. Hypertension. PLAN: Patient remains clinically stable, overall clinically improving. Responding to blood product and Neupogen, that was discontinued today. She is being followed by multiple consultants. Continu e present care. Continue left lower extremity elevation. Dictated By: CODY VASQUEZ MASTER MOTORCYCLE TECHNICIAN for [employer] Conf#: [id number] DID#: [id number]
[2017-09-06] MEDS: FLUCONAZOLE 200 MG/NS (PMX) 100 ML IVPB SCH (12:44)
--- NOTE | 2017-09-06 13:08 | CONS ---
Date/Time of Note Date/Time of Note DATE: 09/06/17 TIME: 13:05 Consult Date/Type/Reason Admit Date/Time Aug 24, 2017 at 19:05 Initial Consult Date 08/29/17 Type of Consultation: ID Ordering Provider: GIA DUMONT Objective Vital Signs Date Time Temp Pulse Resp B/P Pulse Ox O2 Delivery O2 Flow Rate FiO2 09/06/17 12:39 94 09/06/17 12:36 22 98 Nasal Cannula 3.0 09/06/17 11:07 97.1 162/75 09/05/17 16:30 100 Intake and Output 09/05/17 09/05/17 09/06/17 15:00 23:00 07:00 Intake Total 350 ml 200 ml Output Total 550 ml 1000 ml 1000 ml Balance -550 ml -650 ml -800 ml Results/Medications Result Diagram: 09/06/17 0552 09/06/17 0552 Results 24 hrs Laboratory Tests Test 09/05/17 16:53 09/05/17 16:58 09/05/17 18:09 09/05/17 21:05 Blood Gas Specimen Source Blood arterial Arterial Blood Date Drawn 09/05/2017 5:02:52 PM Arterial Blood pH (Temp corrected) 7.369 Arterial Blood pCO2 (Temp correct) 35.1 Arterial Blood pO2 (Temp corrected) 158.9 H Arterial Blood HCO3 19.8 L Arterial Blood Base Excess -4.8 L Arterial Blood Oxygen Saturation 98.8 H Jovany Test N/A Arterial Blood Gas Puncture Site Right Brachial Arterial Blood Carboxyhemoglobin 0.3 Arterial Blood Methemoglobin 0.4 Blood Gas A-a O2 Differential 519.0 H Oxyhemoglobin Percent 98.1 Total Hemoglobin 11.1 L Blood Gas Temperature 37.0 Blood Gas Modality MASK - NRB FiO2 100.0 Blood Gas Notified Whom DHOLT,[employer] Blood Gas Notified Time 09/05/2017 5:17:43 PM Creatine Kinase 33 Creatine Kinase Index 5.4 Creatinine Kinase MB (Mass) 1.77 Troponin I 0.160 *H B-Type Natriuretic Peptide 92553 H Bedside Glucose 183 201 Test 09/06/17 02:08 09/06/17 05:00 09/06/17 05:52 09/06/17 08:29 Bedside Glucose 225 H 259 H Blood Gas Specimen Source Blood arterial Arterial Blood Date Drawn 09/06/2017 5:05:16 AM Arterial Blood pH (Temp corrected) 7.362 Arterial Blood pCO2 (Temp correct) 30.4 L Arterial Blood pO2 (Temp corrected) 201.3 H Arterial Blood HCO3 16.9 L Arterial Blood Base Excess -7.6 L Arterial Blood Oxygen Saturation 99.0 H Jovany Test ACCEPTAB Arterial Blood Gas Puncture Site Left Radial Arterial Blood Carboxyhemoglobin 0.3 Arterial Blood Methemoglobin 0.3 Blood Gas A-a O2 Differential 481.3 H Oxyhemoglobin Percent 98.4 Total Hemoglobin 9.7 L Blood Gas Temperature 37.0 Blood Gas Modality MASK - NRB FiO2 100.0 Blood Gas Notified Whom MA Blood Gas Notified Time 09/06/2017 5:17:04 AM White Blood Count 33.1 H Red Blood Count 2.79 L Hemoglobin 8.1 L Hematocrit 24.8 L Mean Corpuscular Volume 88.9 Mean Corpuscular Hemoglobin 29.0 Mean Corpuscular Hemoglobin Concent 32.7 Red Cell Distribution Width 17.6 H Platelet Count 124 L Mean Platelet Volume 12.6 H Neutrophils % Segmented Neutrophils % (Manual) 54 Band Neutrophils % (Manual) 20 H Lymphocytes % Lymphocytes % (Manual) 8 L Monocytes % Monocytes % (Manual) 5 Eosinophils % Basophils % Metamyelocytes % (manual) 6 H Myelocytes % (Manual) 5 H Promyelocytes % (Manual) 2 H Nucleated Red Blood Cells % 0.1 H Neutrophils # Neutrophils # (Manual) 20.1 H Band Neutrophils # 6.6 H Absolute Lymphocytes (Manual) 2.6 Lymphocytes # Monocytes # Absolute Monocytes (Manual) 1.6 H Eosinophils # Basophils # Metamyelocytes # 1.9 H Myelocytes # 1.6 H Promyelocytes # 0.6 H Nucleated Red Blood Cells # Platelet Estimate DECREASED Anisocytosis 1+ Microcytosis 1+ Sodium Level 134 L Potassium Level 3.7 Chloride Level 106 Carbon Dioxide Level 19 L Anion Gap 13 Blood Urea Nitrogen 36 H Creatinine 2.62 H Glucose Level 234 #H Lactic Acid Level 0.7 Calcium Level 8.2 L Total Bilirubin 0.1 L Direct Bilirubin 0.00 Indirect Bilirubin 0.1 Aspartate Amino Transf (AST/SGOT) 35 Alanine Aminotransferase (ALT/SGPT) 38 Alkaline Phosphatase 237 H Total Protein 6.3 Albumin 2.5 L Globulin 3.80 H Albumin/Globulin Ratio 0.65 Test 09/06/17 12:07 Bedside Glucose 259 H Medications Current Medications Ondansetron HCl (Zofran Inj) 4 mg Q6H PRN IV NAUSEA AND/OR VOMITING Last administered on 09/04/17 13:47; Admin Dose 4 MG; Start 08/25/17 at 08:00 Morphine Sulfate (morphine) 2 mg Q4H PRN IV 5 PAIN Last administered on 09/01/17 20:06; Admin Dose 2 MG; Start 08/25/17 at 08:00 Amlodipine Besylate (Norvasc) 5 mg DAILY PO Last administered on 09/06/17 08: 18; Admin Dose 5 MG; Start 08/25/17 at 09:00 Bisoprolol Fumarate (Zebeta) 10 mg DAILY PO Last administered on 09/06/17 09: 55; Admin Dose 10 MG; Start 08/25/17 at 09:00 Loratadine (Claritin) 10 mg DAILY PO Last administered on 09/06/17 08:18; Admin Dose 10 MG; Start 08/25/17 at 09:00 Losartan Potassium (Cozaar) 50 mg DAILY PO Last administered on 09/06/17 08: 18; Admin Dose 50 MG; Start 08/25/17 at 09:00 Diagnostic Test (Pha) (Accu-Chek) 1 ea 02 XX Last administered on 09/06/17 02 :00; Admin Dose 1 EA; Start 08/26/17 at 02:00 Miscellaneous Information 1 ea NOTE XX ; Start 08/25/17 at 14:00 Glucose (Glutose) 15 gm Q15M PRN PO DECREASED GLUCOSE; Start 08/25/17 at 14:00 Glucose (Glutose) 22.5 gm Q15M PRN PO DECREASED GLUCOSE; Start 08/25/17 at 14: 00 Dextrose (D50w Syringe) 25 ml Q15M PRN IV DECREASED GLUCOSE Last administered on 09/05/17 12:07; Admin Dose 25 ML; Start 08/25/17 at 14:00 Dextrose (D50w Syringe) 50 ml Q15M PRN IV DECREASED GLUCOSE Last administered on 09/03/17 20:53; Admin Dose 50 ML; Start 08/25/17 at 14:00 Glucagon (Glucagen) 1 mg Q15M PRN IM DECREASED GLUCOSE; Start 08/25/17 at 14: 00 Glucose (Glutose) 15 gm Q15M PRN BUCCAL DECREASED GLUCOSE; Start 08/25/17 at 14:00 Acetaminophen 650 mg 650 mg Q4H PRN PO PAIN AND OR ELEVATED TEMP Last administered on 08/26/17 17:06; Admin Dose 650 MG; Start 08/25/17 at 20:30 Fluconazole (Diflucan 200 Mg/ NS (Pmx)) 100 ml @ 100 mls/hr Q24H IVPB Last administered on 09/06/17 12:44; Admin Dose 100 MLS/HR; Start 08/27/17 at 13: 00 Miscellaneous Medication (Bax Susp) 10 ml TID PO Last administered on 12:44; Admin Dose 10 ML; Start 08/29/17 at 13:00 Citric Acid/ Sodium Citrate (Bicitra) 30 ml TID PO Last administered on 08:16; Admin Dose 30 ML; Start 08/29/17 at 21:00 Lidocaine 15 ml 15 ml QID PO Last administered on 09/06/17 12:43; Admin Dose 15 ML; Start 08/30/17 at 21:00; Stop 09/06/17 at 21:00 Leucovorin Calcium/Dextrose (Leucovorin Calcium Inj/D5W) 50 ml @ 200 mls/hr Q6H IV Last administered on 09/06/17 09:55; Admin Dose 200 MLS/HR; Start at 22:00 Morphine Sulfate (morphine) 1 mg Q4H PRN IV LESS THAN 5/10 PAIN Last administered on 09/01/17 13:10; Admin Dose 1 MG; Start 08/30/17 at 20:00 Hydralazine HCl (Apresoline) 10 mg Q6H PRN IV ELEVATED SYSTOLIC BP Last administered on 09/05/17 00:39; Admin Dose 10 MG; Start 09/01/17 at 21:30 Silver Sulfadiazine (Thermazene 1% 400 Gm) 1 applic BID TOP Last administered on 09/06/17 08:19; Admin Dose 1 APPLIC; Start 09/04/17 at 14:00 Hydralazine HCl 10 mg 10 mg Q4H PRN IV ELEVATED BLOOD PRESSURE; Start at 01:00 Meropenem/Sodium Chloride (Merrem 500mg/50 ml(Pmx)) 50 ml @ 100 mls/hr Q12 IVPB Last administered on 09/06/17 08:17; Admin Dose 100 MLS/HR; Start 09/05 at 23:00 Insulin Glargine 7 unit 7 unit DAILY@10 SC Last administered on 09/06/17 08: 33; Admin Dose 7 UNIT; Start 09/06/17 at 10:00 Vancomycin HCl/ Sodium Chloride (Vancocin/NS) 250 ml @ 83.333 mls/ hr Q72H IVPB ; Start 09/08/17 at 13:00 Methylprednisolone Sodium Succinate (Solu-Medrol) 40 mg Q12 IV Last administered on 09/06/17 08:18; Admin Dose 40 MG; Start 09/05/17 at 15:00 Assessment/Plan Chief Complaint/Hosp Course SUBJECTIVE: Alert, comfortable on nc, no fevers, nad MICROBIOLOGY: Urine and blood cultures negative. ANTIMICROBIALS: 1. Fluconazole. 2. Vanco. 3. Merrem. PHYSICAL EXAMINATION: GENERAL: This is a well-developed, elderly woman who is in no distress. HEENT: Head atraumatic, normocephalic. Sclerae anicteric. Buccal mucosa dry. NECK: Supple. CHEST: Rise symmetrical. Breath sounds diminished to bases, scattered crackles. HEART: S1, S2. ABDOMEN: Soft, bowel tones present. EXTREMITIES: Without cyanosis. Left lower extremity dsg intact. ASSESSMENT: 1. Left lower extremity cellulitis 2. S/p acute resp failure ?PNA ? fluid overload 2. Pancytopenia/severe thrombocytopenia==>resolved. 3. S/p neutropenia . 4. Acute possibly on chronic kidney disease. 5. Hypertension. 6. Diabetes. PLAN: The patient remains stable, abx changed for possible PNA, continue present care, LLE elevation, f/u CXR, hematology/podiatry/renal/pulmonary rec-s DW staff Problems: CODY VASQUEZ NP Sep 06, 2017 13:08
--- NOTE | 2017-09-06 13:11 | CONS ---
Date/Time of Note Date/Time of Note DATE: 09/06/17 TIME: 13:11 Assessment/Plan Assessment/Plan Chief Complaint/Hosp Course 61 y/o with 1. acute on-chronic kidney disease with no known baseline could be due to underlying sepsis/meds vs drug induced Cr improved significantly 2.62 from 4'S 2 Underlying acute tubular necrosis, possibly sepsis-induced due to cellulitis of the left lower extremity. 3 Likely underlying diabetic nephropathy, underlying hypertensive nephrosclerosis 4 pancytopenia could be due to sepsis, as well as drug-induced mthx/sulpha 5. Hyponatremia. resolved 6. Non gap Metabolic acidosis likely secondary to renal failure on bictra 7 Nephrotic range proteinuria 8 BLE atherosclerosis 9 SOB likely secondary to pul edema on iv lasix Plan - Would continue with Lasix 40 bid( good response) - Consider titrating down steroids as it can worsen edema - strict I and O - Concentrate all iv abx - Recommend getting ECHO to evaluate for cardiac function - Spoke to ID would need iv abx for 3 days and would hold off PICC line as much as possible to preserve future access - Proteinuria wup negative so far HIV, Hep panel, RPR, SPEP/UPEP - Will consider uptitraing Losartan once Cr back to baseline Problems: Consultation Date/Type/Reason Admit Date/Time Aug 24, 2017 at 19:05 Initial Consult Date 08/29/17 Type of Consultation: Renal Referring Provider: GIA DUMONT 24 HR Interval Summary Free Text/Dictation Still sob, getting iv lasix with good UOP Exam/Review of Systems Vital Signs Vitals Vital Signs Date Time Temp Pulse Resp B/P Pulse Ox O2 Delivery O2 Flow Rate FiO2 09/06/17 12:39 94 09/06/17 12:36 22 98 Nasal Cannula 3.0 09/06/17 11:07 97.1 162/75 09/05/17 16:30 100 Intake and Output 09/05/17 09/05/17 09/06/17 15:00 23:00 07:00 Intake Total 350 ml 200 ml Output Total 550 ml 1000 ml 1000 ml Balance -550 ml -650 ml -800 ml Exam Gen : Flat affect, pt bleeding noted from lips HEENT: Unremarkable Neck: Supple, full ROM Respiratory: few crackels at bases Cardiovascular: nl pulses, regular rate and rhythm Gastrointestinal: Soft, NT Extremities: Warml LLEXT edema/erythema/chronic hyperpigmentation changes distal pre-tibial Results Result Diagram: 09/06/17 0552 09/06/17 0552 Results 24 hrs Laboratory Tests Test 09/05/17 16:53 09/05/17 16:58 09/05/17 18:09 09/05/17 21:05 Blood Gas Specimen Source Blood arterial Arterial Blood Date Drawn 09/05/2017 5:02:52 PM Arterial Blood pH (Temp corrected) 7.369 Arterial Blood pCO2 (Temp correct) 35.1 Arterial Blood pO2 (Temp corrected) 158.9 H Arterial Blood HCO3 19.8 L Arterial Blood Base Excess -4.8 L Arterial Blood Oxygen Saturation 98.8 H Jovany Test N/A Arterial Blood Gas Puncture Site Right Brachial Arterial Blood Carboxyhemoglobin 0.3 Arterial Blood Methemoglobin 0.4 Blood Gas A-a O2 Differential 519.0 H Oxyhemoglobin Percent 98.1 Total Hemoglobin 11.1 L Blood Gas Temperature 37.0 Blood Gas Modality MASK - NRB FiO2 100.0 Blood Gas Notified Whom DHOLT,[employer]OR[employer]ER Blood Gas Notified Time 09/05/2017 5:17:43 PM Creatine Kinase 33 Creatine Kinase Index 5.4 Creatinine Kinase MB (Mass) 1.77 Troponin I 0.160 *H B-Type Natriuretic Peptide 39012 H Bedside Glucose 183 201 Test 09/06/17 02:08 09/06/17 05:00 09/06/17 05:52 09/06/17 08:29 Bedside Glucose 225 H 259 H Blood Gas Specimen Source Blood arterial Arterial Blood Date Drawn 09/06/2017 5:05:16 AM Arterial Blood pH (Temp corrected) 7.362 Arterial Blood pCO2 (Temp correct) 30.4 L Arterial Blood pO2 (Temp corrected) 201.3 H Arterial Blood HCO3 16.9 L Arterial Blood Base Excess -7.6 L Arterial Blood Oxygen Saturation 99.0 H Jovany Test ACCEPTAB Arterial Blood Gas Puncture Site Left Radial Arterial Blood Carboxyhemoglobin 0.3 Arterial Blood Methemoglobin 0.3 Blood Gas A-a O2 Differential 481.3 H Oxyhemoglobin Percent 98.4 Total Hemoglobin 9.7 L Blood Gas Temperature 37.0 Blood Gas Modality MASK - NRB FiO2 100.0 Blood Gas Notified Whom MA Blood Gas Notified Time 09/06/2017 5:17:04 AM White Blood Count 33.1 H Red Blood Count 2.79 L Hemoglobin 8.1 L Hematocrit 24.8 L Mean Corpuscular Volume 88.9 Mean Corpuscular Hemoglobin 29.0 Mean Corpuscular Hemoglobin Concent 32.7 Red Cell Distribution Width 17.6 H Platelet Count 124 L Mean Platelet Volume 12.6 H Neutrophils % Segmented Neutrophils % (Manual) 54 Band Neutrophils % (Manual) 20 H Lymphocytes % Lymphocytes % (Manual) 8 L Monocytes % Monocytes % (Manual) 5 Eosinophils % Basophils % Metamyelocytes % (manual) 6 H Myelocytes % (Manual) 5 H Promyelocytes % (Manual) 2 H Nucleated Red Blood Cells % 0.1 H Neutrophils # Neutrophils # (Manual) 20.1 H Band Neutrophils # 6.6 H Absolute Lymphocytes (Manual) 2.6 Lymphocytes # Monocytes # Absolute Monocytes (Manual) 1.6 H Eosinophils # Basophils # Metamyelocytes # 1.9 H Myelocytes # 1.6 H Promyelocytes # 0.6 H Nucleated Red Blood Cells # Platelet Estimate DECREASED Anisocytosis 1+ Microcytosis 1+ Sodium Level 134 L Potassium Level 3.7 Chloride Level 106 Carbon Dioxide Level 19 L Anion Gap 13 Blood Urea Nitrogen 36 H Creatinine 2.62 H Glucose Level 234 #H Lactic Acid Level 0.7 Calcium Level 8.2 L Total Bilirubin 0.1 L Direct Bilirubin 0.00 Indirect Bilirubin 0.1 Aspartate Amino Transf (AST/SGOT) 35 Alanine Aminotransferase (ALT/SGPT) 38 Alkaline Phosphatase 237 H Total Protein 6.3 Albumin 2.5 L Globulin 3.80 H Albumin/Globulin Ratio 0.65 Test 09/06/17 12:07 Bedside Glucose 259 H Medications Medications Current Medications Ondansetron HCl (Zofran Inj) 4 mg Q6H PRN IV NAUSEA AND/OR VOMITING Last administered on 09/04/17 13:47; Admin Dose 4 MG; Start 08/25/17 at 08:00 Morphine Sulfate (morphine) 2 mg Q4H PRN IV PAIN Last administered on 09/01/17 20:06; Admin Dose 2 MG; Start 08/25/17 at 08:00 Amlodipine Besylate (Norvasc) 5 mg DAILY PO Last administered on 09/06/17 08: 18; Admin Dose 5 MG; Start 08/25/17 at 09:00 Bisoprolol Fumarate (Zebeta) 10 mg DAILY PO Last administered on 09/06/17 09: 55; Admin Dose 10 MG; Start 08/25/17 at 09:00 Loratadine (Claritin) 10 mg DAILY PO Last administered on 09/06/17 08:18; Admin Dose 10 MG; Start 08/25/17 at 09:00 Losartan Potassium (Cozaar) 50 mg DAILY PO Last administered on 09/06/17 08: 18; Admin Dose 50 MG; Start 08/25/17 at 09:00 Diagnostic Test (Pha) (Accu-Chek) 1 ea 02 XX Last administered on 09/06/17 02 :00; Admin Dose 1 EA; Start 08/26/17 at 02:00 Miscellaneous Information 1 ea NOTE XX ; Start 08/25/17 at 14:00 Glucose (Glutose) 15 gm Q15M PRN PO DECREASED GLUCOSE; Start 08/25/17 at 14:00 Glucose (Glutose) 22.5 gm Q15M PRN PO DECREASED GLUCOSE; Start 08/25/17 at 14: 00 Dextrose (D50w Syringe) 25 ml Q15M PRN IV DECREASED GLUCOSE Last administered on 09/05/17 12:07; Admin Dose 25 ML; Start 08/25/17 at 14:00 Dextrose (D50w Syringe) 50 ml Q15M PRN IV DECREASED GLUCOSE Last administered on 09/03/17 20:53; Admin Dose 50 ML; Start 08/25/17 at 14:00 Glucagon (Glucagen) 1 mg Q15M PRN IM DECREASED GLUCOSE; Start 08/25/17 at 14: 00 Glucose (Glutose) 15 gm Q15M PRN BUCCAL DECREASED GLUCOSE; Start 08/25/17 at 14:00 Acetaminophen 650 mg 650 mg Q4H PRN PO PAIN AND OR ELEVATED TEMP Last administered on 08/26/17 17:06; Admin Dose 650 MG; Start 08/25/17 at 20:30 Fluconazole (Diflucan 200 Mg/ NS (Pmx)) 100 ml @ 100 mls/hr Q24H IVPB Last administered on 09/06/17 12:44; Admin Dose 100 MLS/HR; Start 08/27/17 at 13: 00 Miscellaneous Medication (Bax Susp) 10 ml TID PO Last administered on 12:44; Admin Dose 10 ML; Start 08/29/17 at 13:00 Citric Acid/ Sodium Citrate (Bicitra) 30 ml TID PO Last administered on 08:16; Admin Dose 30 ML; Start 08/29/17 at 21:00 Lidocaine 15 ml 15 ml QID PO Last administered on 09/06/17 12:43; Admin Dose 15 ML; Start 08/30/17 at 21:00; Stop 09/06/17 at 21:00 Leucovorin Calcium/Dextrose (Leucovorin Calcium Inj/D5W) 50 ml @ 200 mls/hr Q6H IV Last administered on 09/06/17 09:55; Admin Dose 200 MLS/HR; Start at 22:00 Morphine Sulfate (morphine) 1 mg Q4H PRN IV LESS THAN 5/10 PAIN Last administered on 09/01/17 13:10; Admin Dose 1 MG; Start 08/30/17 at 20:00 Hydralazine HCl (Apresoline) 10 mg Q6H PRN IV ELEVATED SYSTOLIC BP Last administered on 09/05/17 00:39; Admin Dose 10 MG; Start 09/01/17 at 21:30 Silver Sulfadiazine (Thermazene 1% 400 Gm) 1 applic BID TOP Last administered on 09/06/17 08:19; Admin Dose 1 APPLIC; Start 09/04/17 at 14:00 Hydralazine HCl 10 mg 10 mg Q4H PRN IV ELEVATED BLOOD PRESSURE; Start at 01:00 Meropenem/Sodium Chloride (Merrem 500mg/50 ml(Pmx)) 50 ml @ 100 mls/hr Q12 IVPB Last administered on 09/06/17 08:17; Admin Dose 100 MLS/HR; Start 09/05 at 23:00 Insulin Glargine 7 unit 7 unit DAILY@10 SC Last administered on 09/06/17 08: 33; Admin Dose 7 UNIT; Start 09/06/17 at 10:00 Vancomycin HCl/ Sodium Chloride (Vancocin/NS) 250 ml @ 83.333 mls/ hr Q72H IVPB ; Start 09/08/17 at 13:00 Methylprednisolone Sodium Succinate (Solu-Medrol) 40 mg Q12 IV Last administered on 09/06/17 08:18; Admin Dose 40 MG; Start 09/05/17 at 15:00 ARDEN JACKMAN MD Sep 06, 2017 13:11
--- NOTE | 2017-09-06 13:34 | PN ---
Date/Time of Note Date/Time of Note DATE: 09/06/17 TIME: 13:18 Assessment/Plan Lines/Catheters IV Catheter Type (from [facility]): Peripheral IV Reina in Place (from [facility]): Yes Assessment/Plan Chief Complaint/Hosp Course 1. Left lower extremity cellulitis and edema with history of diabetes; Still no weeping/open areas; minimally improved; CT lower extremity: no abscess -continue IV antibiotics -Elevate above heart level 2. Pancytopenia with history of unknown reason for methotrexate therapy: resolved -per heme 3. Diabetes -Nutrition medication optimization -Encourage weight loss 4. Hypertension -Nutrition medication optimization -Encourage weight loss 5. Chronic kidney disease: -Judicious fluid management -Avoid nephrotoxic agents 6. Abnormal LFTs of unknown etiology may be secondary to fatty liver -Monitor 7. Hypoalbuminemia with hypocalcemia -Nutritional optimization 8. PNA: bilat -per pulm -pulm toilet 9. Leukocytosis: 2/2 #1, #8; improving -as above Thank you. Patient seen and examined in collaboration with Dr. William Russ. Problems: Subjective 24 Hr Interval Summary Continues to be short of breath upon min exertion. Left leg improved swelling. Leukocytosis improved. No fevers, chills, sob, congested cough, cp, palpitations. Exam/Review of Systems Vital Signs Vitals Vital Signs Date Time Temp Pulse Resp B/P Pulse Ox O2 Delivery O2 Flow Rate FiO2 09/06/17 12:39 94 09/06/17 12:36 22 98 Nasal Cannula 3.0 09/06/17 11:07 97.1 162/75 09/05/17 16:30 100 Intake and Output 09/05/17 09/05/17 09/06/17 15:00 23:00 07:00 Intake Total 350 ml 200 ml Output Total 550 ml 1000 ml 1000 ml Balance -550 ml -650 ml -800 ml Exam Free Text/Dictation Constitutional: obese, other (Awake), No distress Psych: nl mood/affect, No anxiety Head: atraumatic, normocephalic Eyes: EOMI, PERRL, nl conjunctiva, No icteric ENMT: mucosa pink and dry, nl external ears & nose, nl lips & teeth Neck: non-tender, supple, No jvd Respiratory: normal air movement, No congested cough, No labored breathing, No wheezing Cardiovascular: edema (Left lower extremity- improving), regular rate and rhythm Gastrointestinal: non-tender, soft, No rebound or guarding Musculoskeletal: joint tenderness (Left ankle), No nl extremities to inspection Extremities: edema, normal pulses, pitting pedal edema, tenderness, No calf tenderness Neurological: nl mental status, nl strength Skin: rash or lesions (Left lower extremity-discoloration, flaky skin), No diaphoresis, No nl turgor Lymph: nl lymph nodes, nontender Results Result Diagram: 09/06/17 0552 09/06/17 0552 EDMUND KINCAID NP Sep 06, 2017 13:33
[2017-09-06] MEDS ORDERED: VITAMIN A & D 5 GM OINT PACKET TOP ONE (14:13)
--- NOTE | 2017-09-06 14:43 | CONS ---
Date/Time of Note Date/Time of Note DATE: 09/06/17 TIME: 14:41 Consult Date/Type/Reason Admit Date/Time Aug 24, 2017 at 19:05 Initial Consult Date 08/31/17 Type of Consultation: Pulmonary Ordering Provider: GIA DUMONT Subjective Patient appears comfortable this morning on nasal cannula oxygen. Objective Vital Signs Date Time Temp Pulse Resp B/P Pulse Ox O2 Delivery O2 Flow Rate FiO2 09/06/17 12:39 94 09/06/17 12:36 22 98 Nasal Cannula 3.0 09/06/17 11:07 97.1 162/75 09/05/17 16:30 100 Intake and Output 09/05/17 09/05/17 09/06/17 15:00 23:00 07:00 Intake Total 350 ml 200 ml Output Total 550 ml 1000 ml 1000 ml Balance -550 ml -650 ml -800 ml Exam PHYSICAL EXAMINATION GENERAL: Elderly appearing lady appears comfortable at rest no acute distress VITAL SIGNS: see below. HEENT: Pupils equal, round, and reactive to light. CARDIAC: S1, S2, 1/6 systolic ejection murmur CHEST: Diminished air entry bilaterally. ABDOMEN: Mildly distended. Bowel sounds present no guarding or rebound EXTREMITIES: No cyanosis, clubbing edema +1 NEUROLOGIC: Generalized weakness Results/Medications Result Diagram: 09/06/17 0552 09/06/17 0552 Results 24 hrs Laboratory Tests Test 09/05/17 16:53 09/05/17 16:58 09/05/17 18:09 09/05/17 21:05 Blood Gas Specimen Source Blood arterial Arterial Blood Date Drawn 09/05/2017 5:02:52 PM Arterial Blood pH (Temp corrected) 7.369 Arterial Blood pCO2 (Temp correct) 35.1 Arterial Blood pO2 (Temp corrected) 158.9 H Arterial Blood HCO3 19.8 L Arterial Blood Base Excess -4.8 L Arterial Blood Oxygen Saturation 98.8 H Jovany Test N/A Arterial Blood Gas Puncture Site Right Brachial Arterial Blood Carboxyhemoglobin 0.3 Arterial Blood Methemoglobin 0.4 Blood Gas A-a O2 Differential 519.0 H Oxyhemoglobin Percent 98.1 Total Hemoglobin 11.1 L Blood Gas Temperature 37.0 Blood Gas Modality MASK - NRB FiO2 100.0 Blood Gas Notified Whom GAURAV IVAN Blood Gas Notified Time 09/05/2017 5:17:43 PM Creatine Kinase 33 Creatine Kinase Index 5.4 Creatinine Kinase MB (Mass) 1.77 Troponin I 0.160 *H B-Type Natriuretic Peptide 02488 H Bedside Glucose 183 201 Test 09/06/17 02:08 09/06/17 05:00 09/06/17 05:52 09/06/17 08:29 Bedside Glucose 225 H 259 H Blood Gas Specimen Source Blood arterial Arterial Blood Date Drawn 09/06/2017 5:05:16 AM Arterial Blood pH (Temp corrected) 7.362 Arterial Blood pCO2 (Temp correct) 30.4 L Arterial Blood pO2 (Temp corrected) 201.3 H Arterial Blood HCO3 16.9 L Arterial Blood Base Excess -7.6 L Arterial Blood Oxygen Saturation 99.0 H Jovany Test ACCEPTAB Arterial Blood Gas Puncture Site Left Radial Arterial Blood Carboxyhemoglobin 0.3 Arterial Blood Methemoglobin 0.3 Blood Gas A-a O2 Differential 481.3 H Oxyhemoglobin Percent 98.4 Total Hemoglobin 9.7 L Blood Gas Temperature 37.0 Blood Gas Modality MASK - NRB FiO2 100.0 Blood Gas Notified Whom MA Blood Gas Notified Time 09/06/2017 5:17:04 AM White Blood Count 33.1 H Red Blood Count 2.79 L Hemoglobin 8.1 L Hematocrit 24.8 L Mean Corpuscular Volume 88.9 Mean Corpuscular Hemoglobin 29.0 Mean Corpuscular Hemoglobin Concent 32.7 Red Cell Distribution Width 17.6 H Platelet Count 124 L Mean Platelet Volume 12.6 H Neutrophils % Segmented Neutrophils % (Manual) 54 Band Neutrophils % (Manual) 20 H Lymphocytes % Lymphocytes % (Manual) 8 L Monocytes % Monocytes % (Manual) 5 Eosinophils % Basophils % Metamyelocytes % (manual) 6 H Myelocytes % (Manual) 5 H Promyelocytes % (Manual) 2 H Nucleated Red Blood Cells % 0.1 H Neutrophils # Neutrophils # (Manual) 20.1 H Band Neutrophils # 6.6 H Absolute Lymphocytes (Manual) 2.6 Lymphocytes # Monocytes # Absolute Monocytes (Manual) 1.6 H Eosinophils # Basophils # Metamyelocytes # 1.9 H Myelocytes # 1.6 H Promyelocytes # 0.6 H Nucleated Red Blood Cells # Platelet Estimate DECREASED Anisocytosis 1+ Microcytosis 1+ Sodium Level 134 L Potassium Level 3.7 Chloride Level 106 Carbon Dioxide Level 19 L Anion Gap 13 Blood Urea Nitrogen 36 H Creatinine 2.62 H Glucose Level 234 #H Lactic Acid Level 0.7 Calcium Level 8.2 L Total Bilirubin 0.1 L Direct Bilirubin 0.00 Indirect Bilirubin 0.1 Aspartate Amino Transf (AST/SGOT) 35 Alanine Aminotransferase (ALT/SGPT) 38 Alkaline Phosphatase 237 H Total Protein 6.3 Albumin 2.5 L Globulin 3.80 H Albumin/Globulin Ratio 0.65 Test 09/06/17 12:07 Bedside Glucose 259 H Medications Current Medications Ondansetron HCl (Zofran Inj) 4 mg Q6H PRN IV NAUSEA AND/OR VOMITING Last administered on 09/04/17 13:47; Admin Dose 4 MG; Start 08/25/17 at 08:00 Morphine Sulfate (morphine) 2 mg Q4H PRN IV PAIN Last administered on 09/01/17 20:06; Admin Dose 2 MG; Start 08/25/17 at 08:00 Amlodipine Besylate (Norvasc) 5 mg DAILY PO Last administered on 09/06/17 08: 18; Admin Dose 5 MG; Start 08/25/17 at 09:00 Bisoprolol Fumarate (Zebeta) 10 mg DAILY PO Last administered on 09/06/17 09: 55; Admin Dose 10 MG; Start 08/25/17 at 09:00 Loratadine (Claritin) 10 mg DAILY PO Last administered on 09/06/17 08:18; Admin Dose 10 MG; Start 08/25/17 at 09:00 Losartan Potassium (Cozaar) 50 mg DAILY PO Last administered on 09/06/17 08: 18; Admin Dose 50 MG; Start 08/25/17 at 09:00 Diagnostic Test (Pha) (Accu-Chek) 1 ea 02 XX Last administered on 09/06/17 02 :00; Admin Dose 1 EA; Start 08/26/17 at 02:00 Miscellaneous Information 1 ea NOTE XX ; Start 08/25/17 at 14:00 Glucose (Glutose) 15 gm Q15M PRN PO DECREASED GLUCOSE; Start 08/25/17 at 14:00 Glucose (Glutose) 22.5 gm Q15M PRN PO DECREASED GLUCOSE; Start 08/25/17 at 14: 00 Dextrose (D50w Syringe) 25 ml Q15M PRN IV DECREASED GLUCOSE Last administered on 09/05/17 12:07; Admin Dose 25 ML; Start 08/25/17 at 14:00 Dextrose (D50w Syringe) 50 ml Q15M PRN IV DECREASED GLUCOSE Last administered on 09/03/17 20:53; Admin Dose 50 ML; Start 08/25/17 at 14:00 Glucagon (Glucagen) 1 mg Q15M PRN IM DECREASED GLUCOSE; Start 08/25/17 at 14: 00 Glucose (Glutose) 15 gm Q15M PRN BUCCAL DECREASED GLUCOSE; Start 08/25/17 at 14:00 Acetaminophen 650 mg 650 mg Q4H PRN PO PAIN AND OR ELEVATED TEMP Last administered on 08/26/17 17:06; Admin Dose 650 MG; Start 08/25/17 at 20:30 Fluconazole (Diflucan 200 Mg/ NS (Pmx)) 100 ml @ 100 mls/hr Q24H IVPB Last administered on 09/06/17 12:44; Admin Dose 100 MLS/HR; Start 08/27/17 at 13: 00 Miscellaneous Medication (Bax Susp) 10 ml TID PO Last administered on 12:44; Admin Dose 10 ML; Start 08/29/17 at 13:00 Citric Acid/ Sodium Citrate (Bicitra) 30 ml TID PO Last administered on 14:10; Admin Dose 30 ML; Start 08/29/17 at 21:00 Lidocaine 15 ml 15 ml QID PO Last administered on 09/06/17 12:43; Admin Dose 15 ML; Start 08/30/17 at 21:00; Stop 09/06/17 at 21:00 Leucovorin Calcium/Dextrose (Leucovorin Calcium Inj/D5W) 50 ml @ 200 mls/hr Q6H IV Last administered on 09/06/17 09:55; Admin Dose 200 MLS/HR; Start at 22:00 Morphine Sulfate (morphine) 1 mg Q4H PRN IV LESS THAN 5/10 PAIN Last administered on 09/01/17 13:10; Admin Dose 1 MG; Start 08/30/17 at 20:00 Hydralazine HCl (Apresoline) 10 mg Q6H PRN IV ELEVATED SYSTOLIC BP Last administered on 09/05/17 00:39; Admin Dose 10 MG; Start 09/01/17 at 21:30 Silver Sulfadiazine (Thermazene 1% 400 Gm) 1 applic BID TOP Last administered on 09/06/17 08:19; Admin Dose 1 APPLIC; Start 09/04/17 at 14:00 Hydralazine HCl 10 mg 10 mg Q4H PRN IV ELEVATED BLOOD PRESSURE; Start at 01:00 Meropenem/Sodium Chloride 50 ml @ 100 mls/hr Q12 IVPB Last administered on 08:17; Admin Dose 100 MLS/HR; Start 09/05/17 at 23:00 Vancomycin HCl/ Sodium Chloride (Vancocin/NS) 250 ml @ 83.333 mls/ hr Q72H IVPB ; Start 09/08/17 at 13:00 Methylprednisolone Sodium Succinate (Solu-Medrol) 40 mg Q12 IV Last administered on 09/06/17 08:18; Admin Dose 40 MG; Start 09/05/17 at 15:00 Insulin Glargine (Lantus) 11 unit DAILY@10 SC ; Start 09/07/17 at 10:00 Assessment/Plan Chief Complaint/Hosp Course IMPRESSION: Hypoxemic respiratory insufficiency in the setting of hypertension, chronic kidney disease and volume overload. RECOMMENDATIONS: 1. Agree with continuation of antibiotics, although I do not suspect that this is a pneumonic process. 2. Would pursue aggressive diuresis with Lasix. 3. Would continue serial troponins. 4. Would maximize BP control as I believe much of this may be mediated from her hypertension. 5. Would obtain a 2D echo to better evaluate ejection fraction and also in order to better optimize antihypertensive medications that may address her underlying cardiac physiology. Repeat chest x-ray in a.m. Problems: TANI TOLEDO MD, [facility] Sep 06, 2017 14:43
[2017-09-06] MEDS ORDERED: VANCOMYCIN 500MG/NS (PMX) 100 ML IVPB SCH (16:00)
--- NOTE | 2017-09-06 16:22 | CONS ---
Date/Time of Note Date/Time of Note DATE: 09/06/17 TIME: 16:17 Assessment/Plan Assessment/Plan Additional Assessment/Plan Dyspnea Volume overload Sepsis Pneumonia Cellulitis Renal dysfunction -Patient with extensive hospital visit and so undergoing treatment. Patient with renal dysfunction and evidence of volume overload. Chest x-ray today with increased infiltrate as well as evidence of pulmonary vascular congestion. Diuretics as per our renal colleagues, check echocardiogram. Continue telemetry monitoring. Consultation Date/Type/Reason Admit Date/Time Aug 24, 2017 at 19:05 Type of Consultation: cv Reason for Consultation Shortness of breath Hx of Present Illness This is a 61-year-old female who has been undergoing evaluation treatment for sepsis, pneumonia, cellulitis, pancytopenia and renal dysfunction. Patient also with symptoms of shortness of breath in discussion with primary hospitalist for this reason cardiology consultation was requested. Patient is being followed by renal and is on diuretics as well. Unfortunately, secondary to language barrier, it is difficult to obtain history from patient. Constitutional: poor po Eyes: no complaints ENT: no complaints Respiratory: no complaints Psychological: no complaints Past Medical History Renal dysfunction Medical History: diabetes, hypertension Past Surgical History Past Surgical Hx: no surgical history Social History Alcohol Use: none Smoking Status: Never smoker Drug Use: none Exam/Review of Systems Vital Signs Vitals Vital Signs Date Time Temp Pulse Resp B/P Pulse Ox O2 Delivery O2 Flow Rate FiO2 09/06/17 15:51 98.2 89 21 166/74 98 09/06/17 12:36 Nasal Cannula 3.0 09/05/17 16:30 100 Intake and Output 09/05/17 09/05/17 09/06/17 15:00 23:00 07:00 Intake Total 350 ml 200 ml Output Total 550 ml 1000 ml 1000 ml Balance -550 ml -650 ml -800 ml Exam No apparent distress Constitutional: alert, obese, oriented Head: normocephalic Respiratory: other (Coarse breath sounds bilaterally, minimal end expiratory wheezing) Cardiovascular: other (S1-S2 heard), regular rate and rhythm Gastrointestinal: bowel sounds, non-tender, soft Extremities: edema, other (Bandage left lower extremity) Results Result Diagram: 09/06/17 0552 09/06/17 0552 Results 24 hrs Laboratory Tests Test 09/05/17 16:53 09/05/17 16:58 09/05/17 18:09 09/05/17 21:05 Blood Gas Specimen Source Blood arterial Arterial Blood Date Drawn 09/05/2017 5:02:52 PM Arterial Blood pH (Temp corrected) 7.369 Arterial Blood pCO2 (Temp correct) 35.1 Arterial Blood pO2 (Temp corrected) 158.9 H Arterial Blood HCO3 19.8 L Arterial Blood Base Excess -4.8 L Arterial Blood Oxygen Saturation 98.8 H Jovany Test N/A Arterial Blood Gas Puncture Site Right Brachial Arterial Blood Carboxyhemoglobin 0.3 Arterial Blood Methemoglobin 0.4 Blood Gas A-a O2 Differential 519.0 H Oxyhemoglobin Percent 98.1 Total Hemoglobin 11.1 L Blood Gas Temperature 37.0 Blood Gas Modality MASK - NRB FiO2 100.0 Blood Gas Notified Whom GAURAV IVAN Blood Gas Notified Time 09/05/2017 5:17:43 PM Creatine Kinase 33 Creatine Kinase Index 5.4 Creatinine Kinase MB (Mass) 1.77 Troponin I 0.160 *H B-Type Natriuretic Peptide 46370 H Bedside Glucose 183 201 Test 09/06/17 02:08 09/06/17 05:00 09/06/17 05:52 09/06/17 08:29 Bedside Glucose 225 H 259 H Blood Gas Specimen Source Blood arterial Arterial Blood Date Drawn 09/06/2017 5:05:16 AM Arterial Blood pH (Temp corrected) 7.362 Arterial Blood pCO2 (Temp correct) 30.4 L Arterial Blood pO2 (Temp corrected) 201.3 H Arterial Blood HCO3 16.9 L Arterial Blood Base Excess -7.6 L Arterial Blood Oxygen Saturation 99.0 H Jovany Test ACCEPTAB Arterial Blood Gas Puncture Site Left Radial Arterial Blood Carboxyhemoglobin 0.3 Arterial Blood Methemoglobin 0.3 Blood Gas A-a O2 Differential 481.3 H Oxyhemoglobin Percent 98.4 Total Hemoglobin 9.7 L Blood Gas Temperature 37.0 Blood Gas Modality MASK - NRB FiO2 100.0 Blood Gas Notified Whom IA Blood Gas Notified Time 09/06/2017 5:17:04 AM White Blood Count 33.1 H Red Blood Count 2.79 L Hemoglobin 8.1 L Hematocrit 24.8 L Mean Corpuscular Volume 88.9 Mean Corpuscular Hemoglobin 29.0 Mean Corpuscular Hemoglobin Concent 32.7 Red Cell Distribution Width 17.6 H Platelet Count 124 L Mean Platelet Volume 12.6 H Neutrophils % Segmented Neutrophils % (Manual) 54 Band Neutrophils % (Manual) 20 H Lymphocytes % Lymphocytes % (Manual) 8 L Monocytes % Monocytes % (Manual) 5 Eosinophils % Basophils % Metamyelocytes % (manual) 6 H Myelocytes % (Manual) 5 H Promyelocytes % (Manual) 2 H Nucleated Red Blood Cells % 0.1 H Neutrophils # Neutrophils # (Manual) 20.1 H Band Neutrophils # 6.6 H Absolute Lymphocytes (Manual) 2.6 Lymphocytes # Monocytes # Absolute Monocytes (Manual) 1.6 H Eosinophils # Basophils # Metamyelocytes # 1.9 H Myelocytes # 1.6 H Promyelocytes # 0.6 H Nucleated Red Blood Cells # Platelet Estimate DECREASED Anisocytosis 1+ Microcytosis 1+ Sodium Level 134 L Potassium Level 3.7 Chloride Level 106 Carbon Dioxide Level 19 L Anion Gap 13 Blood Urea Nitrogen 36 H Creatinine 2.62 H Glucose Level 234 #H Lactic Acid Level 0.7 Calcium Level 8.2 L Total Bilirubin 0.1 L Direct Bilirubin 0.00 Indirect Bilirubin 0.1 Aspartate Amino Transf (AST/SGOT) 35 Alanine Aminotransferase (ALT/SGPT) 38 Alkaline Phosphatase 237 H Total Protein 6.3 Albumin 2.5 L Globulin 3.80 H Albumin/Globulin Ratio 0.65 Test 09/06/17 12:07 Bedside Glucose 259 H Medications Medications Current Medications Ondansetron HCl (Zofran Inj) 4 mg Q6H PRN IV NAUSEA AND/OR VOMITING Last administered on 09/04/17 13:47; Admin Dose 4 MG; Start 08/25/17 at 08:00 Morphine Sulfate (morphine) 2 mg Q4H PRN IV PAIN Last administered on 09/01/17 20:06; Admin Dose 2 MG; Start 08/25/17 at 08:00 Amlodipine Besylate (Norvasc) 5 mg DAILY PO Last administered on 09/06/17 08: 18; Admin Dose 5 MG; Start 08/25/17 at 09:00 Bisoprolol Fumarate (Zebeta) 10 mg DAILY PO Last administered on 09/06/17 09: 55; Admin Dose 10 MG; Start 08/25/17 at 09:00 Loratadine (Claritin) 10 mg DAILY PO Last administered on 09/06/17 08:18; Admin Dose 10 MG; Start 10/11/17 at 09:00 Losartan Potassium (Cozaar) 50 mg DAILY PO Last administered on 09/06/17 08: 18; Admin Dose 50 MG; Start 08/25/17 at 09:00 Diagnostic Test (Pha) (Accu-Chek) 1 ea 02 XX Last administered on 09/06/17 02 :00; Admin Dose 1 EA; Start 08/26/17 at 02:00 Miscellaneous Information 1 ea NOTE XX ; Start 08/25/17 at 14:00 Glucose (Glutose) 15 gm Q15M PRN PO DECREASED GLUCOSE; Start 08/25/17 at 14:00 Glucose (Glutose) 22.5 gm Q15M PRN PO DECREASED GLUCOSE; Start 08/25/17 at 14: 00 Dextrose (D50w Syringe) 25 ml Q15M PRN IV DECREASED GLUCOSE Last administered on 09/05/17 12:07; Admin Dose 25 ML; Start 08/25/17 at 14:00 Dextrose (D50w Syringe) 50 ml Q15M PRN IV DECREASED GLUCOSE Last administered on 09/03/17 20:53; Admin Dose 50 ML; Start 08/25/17 at 14:00 Glucagon (Glucagen) 1 mg Q15M PRN IM DECREASED GLUCOSE; Start 08/25/17 at 14: 00 Glucose (Glutose) 15 gm Q15M PRN BUCCAL DECREASED GLUCOSE; Start 08/25/17 at 14:00 Acetaminophen 650 mg 650 mg Q4H PRN PO PAIN AND OR ELEVATED TEMP Last administered on 08/26/17 17:06; Admin Dose 650 MG; Start 08/25/17 at 20:30 Fluconazole (Diflucan 200 Mg/ NS (Pmx)) 100 ml @ 100 mls/hr Q24H IVPB Last administered on 09/06/17 12:44; Admin Dose 100 MLS/HR; Start 08/27/17 at 13: 00 Miscellaneous Medication (Bax Susp) 10 ml TID PO Last administered on 12:44; Admin Dose 10 ML; Start 08/29/17 at 13:00 Citric Acid/ Sodium Citrate (Bicitra) 30 ml TID PO Last administered on 14:10; Admin Dose 30 ML; Start 08/29/17 at 21:00 Lidocaine 15 ml 15 ml QID PO Last administered on 09/06/17 12:43; Admin Dose 15 ML; Start 08/30/17 at 21:00; Stop 09/06/17 at 21:00 Leucovorin Calcium/Dextrose (Leucovorin Calcium Inj/D5W) 50 ml @ 200 mls/hr Q6H IV Last administered on 09/06/17 16:15; Admin Dose 200 MLS/HR; Start at 22:00 Morphine Sulfate (morphine) 1 mg Q4H PRN IV LESS THAN 5/10 PAIN Last administered on 09/01/17 13:10; Admin Dose 1 MG; Start 08/30/17 at 20:00 Hydralazine HCl (Apresoline) 10 mg Q6H PRN IV ELEVATED SYSTOLIC BP Last administered on 09/05/17 00:39; Admin Dose 10 MG; Start 09/01/17 at 21:30 Silver Sulfadiazine (Thermazene 1% 400 Gm) 1 applic BID TOP Last administered on 09/06/17 08:19; Admin Dose 1 APPLIC; Start 09/04/17 at 14:00 Hydralazine HCl 10 mg 10 mg Q4H PRN IV ELEVATED BLOOD PRESSURE; Start at 01:00 Meropenem/Sodium Chloride 50 ml @ 100 mls/hr Q12 IVPB Last administered on 08:17; Admin Dose 100 MLS/HR; Start 09/05/17 at 23:00 Vancomycin HCl/ Sodium Chloride (Vancocin/NS) 250 ml @ 83.333 mls/ hr Q72H IVPB ; Start 09/08/17 at 13:00 Methylprednisolone Sodium Succinate (Solu-Medrol) 40 mg Q12 IV Last administered on 09/06/17 08:18; Admin Dose 40 MG; Start 09/05/17 at 15:00 Insulin Glargine (Lantus) 11 unit DAILY@10 SC ; Start 09/07/17 at 10:00 Tj Marie DO Sep 06, 2017 16:22
--- NOTE | 2017-09-06 16:33 | PN ---
Date/Time of Note Date/Time of Note DATE: 09/06/17 TIME: 16:27 Assessment/Plan VTE Prophylaxis VTE Prophylaxis Intervention: other (thrombocytopenia) Lines/Catheters IV C[facility]ter Type ([facility] Peripheral IV Urinary Cath still in place: Yes Reason Cath still needed: other (indicate) (profound weakness.) Assessment/Plan Chief Complaint/Hosp Course Unable to converse fully due to language issue. I have spoken to Dr. Rocha and reviewed chart. 61 yo woman admitted for cellulitis of lower left leg. History of diabetes, hypertension, obesity, azotemia, abnormal liver studies and methotrexate administration for unclear diagnosis ( leg pain). Problems: Assessment/Plan WBC has exhibited rebound rise due to filgrastim. No specific treatment needed. Platelets continue to improve and are only mildly decreased now. One could consider VTE prophylaxis now. Hgb is still low and may be due in part to azotemia and partly due to protein calorie malnutrition. EPO assay was ~200 but the Hgb was ~6 1/2 at that time, so the EPO assay should have been >500. Consider starting Procrit if the retic count does not start to rise. The cellulitic area appears to be healing now that the neutropenia has resolved. Subjective 24 Hr Interval Summary Free Text/Dictation Weak but stable and in no distress. Exam/Review of Systems Vital Signs Vitals Vital Signs Date Time Temp Pulse Resp B/P Pulse Ox O2 Delivery O2 Flow Rate FiO2 09/06/17 15:51 98.2 89 21 166/74 98 09/06/17 12:36 Nasal Cannula 3.0 09/05/17 16:30 100 Intake and Output 09/05/17 09/05/17 09/06/17 15:00 23:00 07:00 Intake Total 350 ml 200 ml Output Total 550 ml 1000 ml 1000 ml Balance -550 ml -650 ml -800 ml Exam Head: normocephalic Eyes: other (pallor) ENMT: nl lips & teeth Neck: supple Respiratory: clear to auscultation Cardiovascular: regular rate and rhythm Gastrointestinal: nl liver, spleen, soft Results Result Diagram: 09/06/17 0552 09/06/17 0552 Results 24 hrs Laboratory Tests Test 09/05/17 16:53 09/05/17 16:58 09/05/17 18:09 09/05/17 21:05 Blood Gas Specimen Source Blood arterial Arterial Blood Date Drawn 09/05/2017 5:02:52 PM Arterial Blood pH (Temp corrected) 7.369 Arterial Blood pCO2 (Temp correct) 35.1 Arterial Blood pO2 (Temp corrected) 158.9 H Arterial Blood HCO3 19.8 L Arterial Blood Base Excess -4.8 L Arterial Blood Oxygen Saturation 98.8 H Jovany Test N/A Arterial Blood Gas Puncture Site Right Brachial Arterial Blood Carboxyhemoglobin 0.3 Arterial Blood Methemoglobin 0.4 Blood Gas A-a O2 Differential 519.0 H Oxyhemoglobin Percent 98.1 Total Hemoglobin 11.1 L Blood Gas Temperature 37.0 Blood Gas Modality MASK - NRB FiO2 100.0 Blood Gas Notified Whom [facility] Blood Gas Notified Time 09/05/2017 5:17:43 PM Creatine Kinase 33 Creatine Kinase Index 5.4 Creatinine Kinase MB (Mass) 1.77 Troponin I 0.160 *H B-Type Natriuretic Peptide 65870 H Bedside Glucose 183 201 Test 09/06/17 02:08 09/06/17 05:00 09/06/17 05:52 09/06/17 08:29 Bedside Glucose 225 H 259 H Blood Gas Specimen Source Blood arterial Arterial Blood Date Drawn 09/06/2017 5:05:16 AM Arterial Blood pH (Temp corrected) 7.362 Arterial Blood pCO2 (Temp correct) 30.4 L Arterial Blood pO2 (Temp corrected) 201.3 H Arterial Blood HCO3 16.9 L Arterial Blood Base Excess -7.6 L Arterial Blood Oxygen Saturation 99.0 H Jovany Test ACCEPTAB Arterial Blood Gas Puncture Site Left Radial Arterial Blood Carboxyhemoglobin 0.3 Arterial Blood Methemoglobin 0.3 Blood Gas A-a O2 Differential 481.3 H Oxyhemoglobin Percent 98.4 Total Hemoglobin 9.7 L Blood Gas Temperature 37.0 Blood Gas Modality MASK - NRB FiO2 100.0 Blood Gas Notified Whom SC Blood Gas Notified Time 09/06/2017 5:17:04 AM White Blood Count 33.1 H Red Blood Count 2.79 L Hemoglobin 8.1 L Hematocrit 24.8 L Mean Corpuscular Volume 88.9 Mean Corpuscular Hemoglobin 29.0 Mean Corpuscular Hemoglobin Concent 32.7 Red Cell Distribution Width 17.6 H Platelet Count 124 L Mean Platelet Volume 12.6 H Neutrophils % Segmented Neutrophils % (Manual) 54 Band Neutrophils % (Manual) 20 H Lymphocytes % Lymphocytes % (Manual) 8 L Monocytes % Monocytes % (Manual) 5 Eosinophils % Basophils % Metamyelocytes % (manual) 6 H Myelocytes % (Manual) 5 H Promyelocytes % (Manual) 2 H Nucleated Red Blood Cells % 0.1 H Neutrophils # Neutrophils # (Manual) 20.1 H Band Neutrophils # 6.6 H Absolute Lymphocytes (Manual) 2.6 Lymphocytes # Monocytes # Absolute Monocytes (Manual) 1.6 H Eosinophils # Basophils # Metamyelocytes # 1.9 H Myelocytes # 1.6 H Promyelocytes # 0.6 H Nucleated Red Blood Cells # Platelet Estimate DECREASED Anisocytosis 1+ Microcytosis 1+ Sodium Level 134 L Potassium Level 3.7 Chloride Level 106 Carbon Dioxide Level 19 L Anion Gap 13 Blood Urea Nitrogen 36 H Creatinine 2.62 H Glucose Level 234 #H Lactic Acid Level 0.7 Calcium Level 8.2 L Total Bilirubin 0.1 L Direct Bilirubin 0.00 Indirect Bilirubin 0.1 Aspartate Amino Transf (AST/SGOT) 35 Alanine Aminotransferase (ALT/SGPT) 38 Alkaline Phosphatase 237 H Total Protein 6.3 Albumin 2.5 L Globulin 3.80 H Albumin/Globulin Ratio 0.65 Test 09/06/17 12:07 Bedside Glucose 259 H Medications Medications Current Medications Ondansetron HCl (Zofran Inj) 4 mg Q6H PRN IV NAUSEA AND/OR VOMITING Last administered on 09/04/17 13:47; Admin Dose 4 MG; Start 08/25/17 at 08:00 Morphine Sulfate (morphine) 2 mg Q4H PRN IV PAIN Last administered on 09/01/17 20:06; Admin Dose 2 MG; Start 08/25/17 at 08:00 Amlodipine Besylate (Norvasc) 5 mg DAILY PO Last administered on 09/06/17 08: 18; Admin Dose 5 MG; Start 08/25/17 at 09:00 Bisoprolol Fumarate (Zebeta) 10 mg DAILY PO Last administered on 09/06/17 09: 55; Admin Dose 10 MG; Start 08/25/17 at 09:00 Loratadine (Claritin) 10 mg DAILY PO Last administered on 09/06/17 08:18; Admin Dose 10 MG; Start 08/25/17 at 09:00 Losartan Potassium (Cozaar) 50 mg DAILY PO Last administered on 09/06/17 08: 18; Admin Dose 50 MG; Start 08/25/17 at 09:00 Diagnostic Test (Pha) (Accu-Chek) 1 ea 02 XX Last administered on 09/06/17 02 :00; Admin Dose 1 EA; Start 08/26/17 at 02:00 Miscellaneous Information 1 ea NOTE XX ; Start 08/25/17 at 14:00 Glucose (Glutose) 15 gm Q15M PRN PO DECREASED GLUCOSE; Start 08/25/17 at 14:00 Glucose (Glutose) 22.5 gm Q15M PRN PO DECREASED GLUCOSE; Start 08/25/17 at 14: 00 Dextrose (D50w Syringe) 25 ml Q15M PRN IV DECREASED GLUCOSE Last administered on 09/05/17 12:07; Admin Dose 25 ML; Start 08/25/17 at 14:00 Dextrose (D50w Syringe) 50 ml Q15M PRN IV DECREASED GLUCOSE Last administered on 09/03/17 20:53; Admin Dose 50 ML; Start 08/25/17 at 14:00 Glucagon (Glucagen) 1 mg Q15M PRN IM DECREASED GLUCOSE; Start 08/25/17 at 14: 00 Glucose (Glutose) 15 gm Q15M PRN BUCCAL DECREASED GLUCOSE; Start 08/25/17 at 14:00 Acetaminophen 650 mg 650 mg Q4H PRN PO PAIN AND OR ELEVATED TEMP Last administered on 08/26/17 17:06; Admin Dose 650 MG; Start 08/25/17 at 20:30 Fluconazole (Diflucan 200 Mg/ NS (Pmx)) 100 ml @ 100 mls/hr Q24H IVPB Last administered on 09/06/17 12:44; Admin Dose 100 MLS/HR; Start 08/27/17 at 13: 00 Miscellaneous Medication (Bax Susp) 10 ml TID PO Last administered on 12:44; Admin Dose 10 ML; Start 08/29/17 at 13:00 Citric Acid/ Sodium Citrate (Bicitra) 30 ml TID PO Last administered on 14:10; Admin Dose 30 ML; Start 08/29/17 at 21:00 Lidocaine 15 ml 15 ml QID PO Last administered on 09/06/17 12:43; Admin Dose 15 ML; Start 08/30/17 at 21:00; Stop 09/06/17 at 21:00 Leucovorin Calcium/Dextrose (Leucovorin Calcium Inj/D5W) 50 ml @ 200 mls/hr Q6H IV Last administered on 09/06/17 16:15; Admin Dose 200 MLS/HR; Start at 22:00 Morphine Sulfate (morphine) 1 mg Q4H PRN IV LESS THAN 5/10 PAIN Last administered on 09/01/17 13:10; Admin Dose 1 MG; Start 08/30/17 at 20:00 Hydralazine HCl (Apresoline) 10 mg Q6H PRN IV ELEVATED SYSTOLIC BP Last administered on 09/05/17 00:39; Admin Dose 10 MG; Start 09/01/17 at 21:30 Silver Sulfadiazine (Thermazene 1% 400 Gm) 1 applic BID TOP Last administered on 09/06/17 08:19; Admin Dose 1 APPLIC; Start 09/04/17 at 14:00 Hydralazine HCl 10 mg 10 mg Q4H PRN IV ELEVATED BLOOD PRESSURE; Start at 01:00 Meropenem/Sodium Chloride 50 ml @ 100 mls/hr Q12 IVPB Last administered on 08:17; Admin Dose 100 MLS/HR; Start 09/05/17 at 23:00 Vancomycin HCl/ Sodium Chloride (Vancocin/NS) 250 ml @ 83.333 mls/ hr Q72H IVPB ; Start 09/08/17 at 13:00 Methylprednisolone Sodium Succinate (Solu-Medrol) 40 mg Q12 IV Last administered on 09/06/17 08:18; Admin Dose 40 MG; Start 09/05/17 at 15:00 Insulin Glargine (Lantus) 11 unit DAILY@10 SC ; Start 09/07/17 at 10:00 SARY DUQUE MD Sep 06, 2017 16:33
--- NOTE | 2017-09-06 18:26 | PN ---
Date/Time of Note Date/Time of Note DATE: 09/06/17 TIME: 18:17 Assessment/Plan VTE Prophylaxis VTE Prophylaxis Intervention: heparin Lines/Catheters IV Catheter Type (from Nrs): Peripheral IV Urinary Cath still in place: Yes Reason Cath still needed: terminal illness/intractable pain Assessment/Plan Chief Complaint/Hosp Course Patient is a 61-year-old female with a past medical history of hypertension, diabetes, CKD who presented for left lower extremity cellulitis. Assessment/Plan 1. Bilateral Pneumonia - Patient found to have b/l PNA on chest xray - On antibiotics and changed to Meropenem per ID - Pulmonology consultation placed and appreciated recommendations - On Neb treatments -tapering steroids #pulmonary edema - likely etiology given elevated BNP and xray -continue IV lasix, careful given Cr -echo pending per cards 2. Left lower extremity cellulitis - ID and Surgery on board. Recommendations appreciated - Antibiotic per ID - CT LE showed cellulitis and no evidence of osteomyelitis. Xray LE also performed and no osteomyelitis appreciated. -gen surg/vascular surg do not feel any acute intervention is needed -wraps 3. Mucositis 2/2 methotrexate use- improving - diphen/lido/mal oral solution ordered. Morphine if pain remain intolerable for PO intake - Tolerating pureed diet and will advance as tolerated 4. Pancytopenia- improving -now leukocytosis, possible steroid and PNA - No transfusions needed today - Hematology on board and recommendations appreciated. - s/p multiple blood transfusions and plt transfusions. . 5. Neutropenia- resolved - WBC >30 and Neupogen no longer on board - Will continue to monitor - Heme on board and recommendations appreciated 6. BK vs BK on CKD - Nephrology on board and recommendations appreciated. - Cr elevated, but lower than admission, likely chronic component - Monitor UOP - HIV negative, KASSY negative 7. Hypokalemia - stable 8. Eosinophilia - normalized after d/c sulfasalazine and mtx 9. Vascular insufficiency - Vascular surgery on board and recommendations appreciated. No current vascular intervention as the patient has not developed any gangrene or ulcers - Will need to follow up as outpatient due to LE atherosclerosis DISPO: Will need to finalize abx per ID, PT/OT, likely transfer Problems: Exam/Review of Systems Vital Signs Vitals Vital Signs Date Time Temp Pulse Resp B/P Pulse Ox O2 Delivery O2 Flow Rate FiO2 09/06/17 16:30 85 24 96 Nasal Cannula 3.0 09/06/17 15:51 98.2 166/74 09/05/17 16:30 100 Intake and Output 09/05/17 09/05/17 09/06/17 15:00 23:00 07:00 Intake Total 350 ml 200 ml Output Total 550 ml 1000 ml 1000 ml Balance -550 ml -650 ml -800 ml Results Result Diagram: 09/06/17 0552 09/06/17 0552 Results 24 hrs Laboratory Tests Test 09/05/17 21:05 09/06/17 02:08 09/06/17 05:00 09/06/17 05:52 Bedside Glucose 201 225 H Blood Gas Specimen Source Blood arterial Arterial Blood Date Drawn 09/06/2017 5:05:16 AM Arterial Blood pH (Temp corrected) 7.362 Arterial Blood pCO2 (Temp correct) 30.4 L Arterial Blood pO2 (Temp corrected) 201.3 H Arterial Blood HCO3 16.9 L Arterial Blood Base Excess -7.6 L Arterial Blood Oxygen Saturation 99.0 H Jovany Test ACCEPTAB Arterial Blood Gas Puncture Site Left Radial Arterial Blood Carboxyhemoglobin 0.3 Arterial Blood Methemoglobin 0.3 Blood Gas A-a O2 Differential 481.3 H Oxyhemoglobin Percent 98.4 Total Hemoglobin 9.7 L Blood Gas Temperature 37.0 Blood Gas Modality MASK - NRB FiO2 100.0 Blood Gas Notified Whom ND Blood Gas Notified Time 09/06/2017 5:17:04 AM White Blood Count 33.1 H Red Blood Count 2.79 L Hemoglobin 8.1 L Hematocrit 24.8 L Mean Corpuscular Volume 88.9 Mean Corpuscular Hemoglobin 29.0 Mean Corpuscular Hemoglobin Concent 32.7 Red Cell Distribution Width 17.6 H Platelet Count 124 L Mean Platelet Volume 12.6 H Neutrophils % Segmented Neutrophils % (Manual) 54 Band Neutrophils % (Manual) 20 H Lymphocytes % Lymphocytes % (Manual) 8 L Monocytes % Monocytes % (Manual) 5 Eosinophils % Basophils % Metamyelocytes % (manual) 6 H Myelocytes % (Manual) 5 H Promyelocytes % (Manual) 2 H Nucleated Red Blood Cells % 0.1 H Neutrophils # Neutrophils # (Manual) 20.1 H Band Neutrophils # 6.6 H Absolute Lymphocytes (Manual) 2.6 Lymphocytes # Monocytes # Absolute Monocytes (Manual) 1.6 H Eosinophils # Basophils # Metamyelocytes # 1.9 H Myelocytes # 1.6 H Promyelocytes # 0.6 H Nucleated Red Blood Cells # Platelet Estimate DECREASED Anisocytosis 1+ Microcytosis 1+ Sodium Level 134 L Potassium Level 3.7 Chloride Level 106 Carbon Dioxide Level 19 L Anion Gap 13 Blood Urea Nitrogen 36 H Creatinine 2.62 H Glucose Level 234 #H Lactic Acid Level 0.7 Calcium Level 8.2 L Total Bilirubin 0.1 L Direct Bilirubin 0.00 Indirect Bilirubin 0.1 Aspartate Amino Transf (AST/SGOT) 35 Alanine Aminotransferase (ALT/SGPT) 38 Alkaline Phosphatase 237 H Total Protein 6.3 Albumin 2.5 L Globulin 3.80 H Albumin/Globulin Ratio 0.65 Test 09/06/17 08:29 09/06/17 12:07 09/06/17 17:29 Bedside Glucose 259 H 259 H 256 H Medications Medications Current Medications Ondansetron HCl (Zofran Inj) 4 mg Q6H PRN IV NAUSEA AND/OR VOMITING Last administered on 09/04/17 13:47; Admin Dose 4 MG; Start 08/25/17 at 08:00 Morphine Sulfate (morphine) 2 mg Q4H PRN IV PAIN Last administered on 09/01/17 20:06; Admin Dose 2 MG; Start 08/25/17 at 08:00 Amlodipine Besylate (Norvasc) 5 mg DAILY PO Last administered on 09/06/17 08: 18; Admin Dose 5 MG; Start 08/25/17 at 09:00 Bisoprolol Fumarate (Zebeta) 10 mg DAILY PO Last administered on 09/06/17 09: 55; Admin Dose 10 MG; Start 08/25/17 at 09:00 Loratadine (Claritin) 10 mg DAILY PO Last administered on 09/06/17 08:18; Admin Dose 10 MG; Start 08/25/17 at 09:00 Losartan Potassium (Cozaar) 50 mg DAILY PO Last administered on 09/06/17 08: 18; Admin Dose 50 MG; Start 08/25/17 at 09:00 Diagnostic Test (Pha) (Accu-Chek) 1 ea 02 XX Last administered on 09/06/17 02 :00; Admin Dose 1 EA; Start 08/26/17 at 02:00 Miscellaneous Information 1 ea NOTE XX ; Start 08/25/17 at 14:00 Glucose (Glutose) 15 gm Q15M PRN PO DECREASED GLUCOSE; Start 08/25/17 at 14:00 Glucose (Glutose) 22.5 gm Q15M PRN PO DECREASED GLUCOSE; Start 08/25/17 at 14: 00 Dextrose (D50w Syringe) 25 ml Q15M PRN IV DECREASED GLUCOSE Last administered on 09/05/17 12:07; Admin Dose 25 ML; Start 08/25/17 at 14:00 Dextrose (D50w Syringe) 50 ml Q15M PRN IV DECREASED GLUCOSE Last administered on 09/03/17 20:53; Admin Dose 50 ML; Start 08/25/17 at 14:00 Glucagon (Glucagen) 1 mg Q15M PRN IM DECREASED GLUCOSE; Start 08/25/17 at 14: 00 Glucose (Glutose) 15 gm Q15M PRN BUCCAL DECREASED GLUCOSE; Start 08/25/17 at 14:00 Acetaminophen 650 mg 650 mg Q4H PRN PO PAIN AND OR ELEVATED TEMP Last administered on 08/26/17 17:06; Admin Dose 650 MG; Start 08/25/17 at 20:30 Fluconazole (Diflucan 200 Mg/ NS (Pmx)) 100 ml @ 100 mls/hr Q24H IVPB Last administered on 09/06/17 12:44; Admin Dose 100 MLS/HR; Start 08/27/17 at 13: 00 Miscellaneous Medication (Bax Susp) 10 ml TID PO Last administered on 12:44; Admin Dose 10 ML; Start 08/29/17 at 13:00 Citric Acid/ Sodium Citrate (Bicitra) 30 ml TID PO Last administered on 14:10; Admin Dose 30 ML; Start 08/29/17 at 21:00 Lidocaine 15 ml 15 ml QID PO Last administered on 09/06/17 17:31; Admin Dose 15 ML; Start 08/30/17 at 21:00; Stop 09/06/17 at 21:00 Leucovorin Calcium/Dextrose (Leucovorin Calcium Inj/D5W) 50 ml @ 200 mls/hr Q6H IV Last administered on 09/06/17 16:15; Admin Dose 200 MLS/HR; Start at 22:00; Status Future Hold Morphine Sulfate (morphine) 1 mg Q4H PRN IV LESS THAN 5/10 PAIN Last administered on 09/01/17 13:10; Admin Dose 1 MG; Start 08/30/17 at 20:00 Hydralazine HCl (Apresoline) 10 mg Q6H PRN IV ELEVATED SYSTOLIC BP Last administered on 09/05/17 00:39; Admin Dose 10 MG; Start 09/01/17 at 21:30 Silver Sulfadiazine (Thermazene 1% 400 Gm) 1 applic BID TOP Last administered on 09/06/17 08:19; Admin Dose 1 APPLIC; Start 09/04/17 at 14:00 Hydralazine HCl 10 mg 10 mg Q4H PRN IV ELEVATED BLOOD PRESSURE; Start at 01:00 Meropenem/Sodium Chloride 50 ml @ 100 mls/hr Q12 IVPB Last administered on 08:17; Admin Dose 100 MLS/HR; Start 09/05/17 at 23:00 Vancomycin HCl/ Sodium Chloride (Vancocin/NS) 250 ml @ 83.333 mls/ hr Q72H IVPB ; Start 09/08/17 at 13:00 Methylprednisolone Sodium Succinate (Solu-Medrol) 40 mg Q12 IV Last administered on 09/06/17 08:18; Admin Dose 40 MG; Start 09/05/17 at 15:00 Insulin Glargine (Lantus) 11 unit DAILY@10 SC ; Start 09/07/17 at 10:00 GIA DUMONT Sep 06, 2017 18:26
[2017-09-06] MEDS: HEPARIN 5,000 UNIT/0.5 ML VIAL SC SCH (21:25)
[2017-09-07] VITALS (12 sets, daily range): BP systolic 145–172; BP diastolic 62–76; PULSE 80–90; RESP 17–20
[2017-09-07] MEDS: ALBUTEROL/IPRATROPIUM (NEB) 3 ML AMP HHN SCH ×6 (01:51→21:41)
[2017-09-07] MEDS: ACCU-CHEK XX SCH (02:00)
[2017-09-07] MEDS: hydrALAzine 20 MG INJ IV PRN (04:35)
[2017-09-07] MEDS: HEPARIN 5,000 UNIT/0.5 ML VIAL SC SCH ×3 (05:47→22:04)
[2017-09-07] MEDS: FUROSEMIDE 40 MG INJ IV SCH (05:47)
[2017-09-07] MEDS: DIPHENHYD/MYLANTA/LIDO (PO SYG) PO SCH ×3 (08:09→21:21)
[2017-09-07] MEDS: CITRIC ACID/NA CITRATE 30 ML CUP PO SCH ×3 (08:09→21:23)
[2017-09-07] MEDS: MEROPENEM 500MG/50 ML (PMX) 50 ML IVPB SCH ×2 (08:09→22:00)
[2017-09-07] MEDS: LOSARTAN 50 MG TAB PO SCH (08:10)
[2017-09-07] MEDS: AMLODIPINE 5 MG TAB PO SCH (08:10)
[2017-09-07] MEDS: BISOPROLOL 5 MG TAB PO SCH (08:11)
[2017-09-07] MEDS: SILVER SULFADIAZINE 1% 400 GM CR TOP SCH ×2 (08:11→21:21)
[2017-09-07] MEDS: LORATADINE 10 MG TAB PO SCH (08:11)
[2017-09-07] MEDS: INSULIN ASPART [NOVOLOG] 3 ML PEN SC SCH ×4 (08:20→21:33)
[2017-09-07] MEDS ORDERED: predniSONE 20 MG TAB PO SCH (09:00)
[2017-09-07] MEDS ORDERED: INSULIN GLARGINE [LANtus] 3 ML PEN SC SCH (10:00)
--- NOTE | 2017-09-07 11:45 | CONS ---
Date/Time of Note Date/Time of Note DATE: 09/07/17 TIME: 11:38 Assessment/Plan Assessment/Plan Chief Complaint/Hosp Course 61 y/o with 1. acute on-chronic kidney disease with no known baseline could be due to underlying sepsis/meds vs drug induced Cr improved significantly 2.62 from 4'S 2 Underlying acute tubular necrosis, possibly sepsis-induced due to cellulitis of the left lower extremity. 3 Likely underlying diabetic nephropathy, underlying hypertensive nephrosclerosis 4 pancytopenia could be due to sepsis, as well as drug-induced mthx/sulpha 5. Hyponatremia. resolved 6. Non gap Metabolic acidosis likely secondary to renal failure on bictra 7 Nephrotic range proteinuria 8 BLE atherosclerosis 9 SOB likely secondary to pul edema on iv lasix Plan - No labs today, Pt respiratory status improving still on 3 L, UOP 3.4 L - Will decrease Lasix to 40 mg, - Prednisone titrated down to 40 - strict I and O - Concentrate all iv abx - Recommend getting ECHO to evaluate for cardiac function which is pending - Spoke to ID would need iv abx for 3 days and would hold off PICC line as much as possible to preserve future access - Proteinuria wup negative so far HIV, Hep panel, RPR, SPEP/UPEP - Will consider uptitrating Losartan once Cr back to baseline Problems: Consultation Date/Type/Reason Admit Date/Time Aug 24, 2017 at 19:05 Initial Consult Date 08/29/17 Type of Consultation: Renal Referring Provider: GIA DUMONT 24 HR Interval Summary Free Text/Dictation Overall pt feels better Breathing is improved UOP 3450 ML yesterday and net negative 2.4 L Exam/Review of Systems Vital Signs Vitals Vital Signs Date Time Temp Pulse Resp B/P Pulse Ox O2 Delivery O2 Flow Rate FiO2 09/07/17 11:11 98.1 82 18 160/72 94 09/07/17 08:30 3.0 09/07/17 08:29 Nasal Cannula 09/05/17 16:30 100 Intake and Output 09/06/17 09/06/17 09/07/17 15:00 23:00 07:00 Intake Total 530 ml 500 ml Output Total 2450 ml 1000 ml Balance -1920 ml -500 ml Exam Gen : Flat affect, pt bleeding noted from lips HEENT: Unremarkable Neck: Supple, full ROM Respiratory: few crackels at bases Cardiovascular: nl pulses, regular rate and rhythm Gastrointestinal: Soft, NT Extremities: Warml LLEXT edema/erythema/chronic hyperpigmentation changes distal pre-tibial Results Result Diagram: 09/07/17 0816 09/06/17 0552 Results 24 hrs Laboratory Tests Test 09/06/17 12:07 09/06/17 17:29 09/06/17 21:23 09/07/17 02:54 Bedside Glucose 259 H 256 H 248 H 223 H Test 09/07/17 08:07 09/07/17 08:15 09/07/17 08:16 Bedside Glucose 195 Absolute Reticulocyte Count 0.034 Percent Reticulocyte Count 1.3 White Blood Count 35.1 H Red Blood Count 2.68 L Hemoglobin 7.9 L Hematocrit 23.9 L Mean Corpuscular Volume 89.2 Mean Corpuscular Hemoglobin 29.5 Mean Corpuscular Hemoglobin Concent 33.1 Red Cell Distribution Width 17.9 H Platelet Count 195 # Mean Platelet Volume 11.3 H Neutrophils % Lymphocytes % Monocytes % Eosinophils % Basophils % Nucleated Red Blood Cells % 0.2 H Neutrophils # Lymphocytes # Monocytes # Eosinophils # Basophils # Nucleated Red Blood Cells # Medications Medications Current Medications Ondansetron HCl (Zofran Inj) 4 mg Q6H PRN IV NAUSEA AND/OR VOMITING Last administered on 09/04/17 13:47; Admin Dose 4 MG; Start 08/25/17 at 08:00 Morphine Sulfate (morphine) 2 mg Q4H PRN IV PAIN Last administered on 09/01/17 20:06; Admin Dose 2 MG; Start 08/25/17 at 08:00 Amlodipine Besylate (Norvasc) 5 mg DAILY PO Last administered on 09/07/17 08: 10; Admin Dose 5 MG; Start 08/25/17 at 09:00 Bisoprolol Fumarate (Zebeta) 10 mg DAILY PO Last administered on 09/07/17 08: 11; Admin Dose 10 MG; Start 08/25/17 at 09:00 Loratadine (Claritin) 10 mg DAILY PO Last administered on 09/07/17 08:11; Admin Dose 10 MG; Start 08/25/17 at 09:00 Losartan Potassium (Cozaar) 50 mg DAILY PO Last administered on 09/07/17 08: 10; Admin Dose 50 MG; Start 08/25/17 at 09:00 Diagnostic Test (Pha) (Accu-Chek) 1 ea 02 XX Last administered on 09/06/17 02 :00; Admin Dose 1 EA; Start 08/26/17 at 02:00 Miscellaneous Information 1 ea NOTE XX ; Start 08/25/17 at 14:00 Glucose (Glutose) 15 gm Q15M PRN PO DECREASED GLUCOSE; Start 08/25/17 at 14:00 Glucose (Glutose) 22.5 gm Q15M PRN PO DECREASED GLUCOSE; Start 08/25/17 at 14: 00 Dextrose (D50w Syringe) 25 ml Q15M PRN IV DECREASED GLUCOSE Last administered on 09/05/17 12:07; Admin Dose 25 ML; Start 08/25/17 at 14:00 Dextrose (D50w Syringe) 50 ml Q15M PRN IV DECREASED GLUCOSE Last administered on 09/03/17 20:53; Admin Dose 50 ML; Start 08/25/17 at 14:00 Glucagon (Glucagen) 1 mg Q15M PRN IM DECREASED GLUCOSE; Start 08/25/17 at 14: 00 Glucose (Glutose) 15 gm Q15M PRN BUCCAL DECREASED GLUCOSE; Start 08/25/17 at 14:00 Acetaminophen 650 mg 650 mg Q4H PRN PO PAIN AND OR ELEVATED TEMP Last administered on 08/26/17 17:06; Admin Dose 650 MG; Start 08/25/17 at 20:30 Fluconazole (Diflucan 200 Mg/ NS (Pmx)) 100 ml @ 100 mls/hr Q24H IVPB Last administered on 09/06/17 12:44; Admin Dose 100 MLS/HR; Start 08/27/17 at 13: 00 Miscellaneous Medication (Bax Susp) 10 ml TID PO Last administered on 08:09; Admin Dose 10 ML; Start 08/29/17 at 13:00 Citric Acid/ Sodium Citrate 30 ml 30 ml TID PO Last administered on 09/07/17 08:09; Admin Dose 30 ML; Start 08/29/17 at 21:00 Leucovorin Calcium/Dextrose (Leucovorin Calcium Inj/D5W) 50 ml @ 200 mls/hr Q6H IV Last administered on 09/06/17 16:15; Admin Dose 200 MLS/HR; Start at 22:00; Status Future Hold Morphine Sulfate (morphine) 1 mg Q4H PRN IV LESS THAN 5/10 PAIN Last administered on 09/01/17 13:10; Admin Dose 1 MG; Start 08/30/17 at 20:00 Hydralazine HCl (Apresoline) 10 mg Q6H PRN IV ELEVATED SYSTOLIC BP Last administered on 09/07/17 04:35; Admin Dose 10 MG; Start 09/01/17 at 21:30 Silver Sulfadiazine (Thermazene 1% 400 Gm) 1 applic BID TOP Last administered on 09/07/17 08:11; Admin Dose 1 APPLIC; Start 09/04/17 at 14:00 Hydralazine HCl 10 mg 10 mg Q4H PRN IV ELEVATED BLOOD PRESSURE; Start at 01:00 Meropenem/Sodium Chloride 50 ml @ 100 mls/hr Q12 IVPB Last administered on 08:09; Admin Dose 100 MLS/HR; Start 09/05/17 at 23:00 Vancomycin HCl/ Sodium Chloride (Vancocin/NS) 250 ml @ 83.333 mls/ hr Q72H IVPB ; Start 09/08/17 at 13:00 Insulin Glargine (Lantus) 11 unit DAILY@10 SC Last administered on 09/07/17 08:21; Admin Dose 11 UNIT; Start 09/07/17 at 10:00 Prednisone (Prednisone) 40 mg DAILY PO Last administered on 09/07/17 08:10; Admin Dose 40 MG; Start 09/07/17 at 09:00 Heparin Sodium (Porcine) (Heparin (5000 Units/0.5 ml)) 5,000 unit Q8 SC Last administered on 09/07/17 05:47; Admin Dose 5,000 UNIT; Start 09/06/17 at 22: 00 ARDEN JACKMAN MD Sep 07, 2017 11:45
[2017-09-07] MEDS: FLUCONAZOLE 200 MG/NS (PMX) 100 ML IVPB SCH (12:14)
--- NOTE | 2017-09-07 13:08 | PN ---
Date/Time of Note Date/Time of Note DATE: 09/07/17 TIME: 13:05 Assessment/Plan VTE Prophylaxis VTE Prophylaxis Intervention: other (per primary MD) Lines/Catheters IV Catheter Type (from Nrsg): Saline Lock Urinary Cath still in place: Yes Reason Cath still needed: other (indicate) (infection) Assessment/Plan Chief Complaint/Hosp Course Unable to converse fully due to language issue. I have spoken to Dr. Rocha and reviewed chart. 61 yo woman admitted for cellulitis of lower left leg. History of diabetes, hypertension, obesity, azotemia, abnormal liver studies and methotrexate administration for unclear diagnosis ( leg pain). Problems: Assessment/Plan Retic count is low and the EPO assay is low, especially for Hgb ~8. I would treat for anemia due to renal insufficiency. Trial to be ordered today. Subjective 24 Hr Interval Summary Free Text/Dictation Pt is alert and has no new complaints Exam/Review of Systems Vital Signs Vitals Vital Signs Date Time Temp Pulse Resp B/P Pulse Ox O2 Delivery O2 Flow Rate FiO2 09/07/17 12:33 80 09/07/17 11:11 98.1 18 160/72 94 09/07/17 08:30 3.0 09/07/17 08:29 Nasal Cannula 09/05/17 16:30 100 Intake and Output 09/06/17 09/06/17 09/07/17 15:00 23:00 07:00 Intake Total 530 ml 500 ml Output Total 2450 ml 1000 ml Balance -1920 ml -500 ml Exam Constitutional: alert Head: normocephalic Eyes: other (p[allor) ENMT: nl external ears & nose Neck: supple Respiratory: clear to auscultation Cardiovascular: regular rate and rhythm Gastrointestinal: nl liver, spleen, soft Extremities: other (left leg cellulitis) Results Result Diagram: 09/07/17 0816 09/07/17 0815 Results 24 hrs Laboratory Tests Test 09/06/17 17:29 09/06/17 21:23 09/07/17 02:54 09/07/17 08:07 Bedside Glucose 256 H 248 H 223 H 195 Test 09/07/17 08:15 09/07/17 08:16 09/07/17 12:13 Absolute Reticulocyte Count 0.034 Percent Reticulocyte Count 1.3 Sodium Level 134 L Potassium Level 3.5 Chloride Level 103 Carbon Dioxide Level 21 Anion Gap 14 Blood Urea Nitrogen 42 H Creatinine 2.69 H Glucose Level 155 Calcium Level 8.4 White Blood Count 35.1 H Red Blood Count 2.68 L Hemoglobin 7.9 L Hematocrit 23.9 L Mean Corpuscular Volume 89.2 Mean Corpuscular Hemoglobin 29.5 Mean Corpuscular Hemoglobin Concent 33.1 Red Cell Distribution Width 17.9 H Platelet Count 195 # Mean Platelet Volume 11.3 H Neutrophils % Lymphocytes % Monocytes % Eosinophils % Basophils % Nucleated Red Blood Cells % 0.2 H Neutrophils # Lymphocytes # Monocytes # Eosinophils # Basophils # Nucleated Red Blood Cells # Bedside Glucose 237 H Medications Medications Current Medications Ondansetron HCl (Zofran Inj) 4 mg Q6H PRN IV NAUSEA AND/OR VOMITING Last administered on 09/04/17 13:47; Admin Dose 4 MG; Start 08/25/17 at 08:00 Morphine Sulfate (morphine) 2 mg Q4H PRN IV PAIN Last administered on 09/01/17 20:06; Admin Dose 2 MG; Start 08/25/17 at 08:00 Amlodipine Besylate (Norvasc) 5 mg DAILY PO Last administered on 09/07/17 08: 10; Admin Dose 5 MG; Start 08/25/17 at 09:00 Bisoprolol Fumarate (Zebeta) 10 mg DAILY PO Last administered on 09/07/17 08: 11; Admin Dose 10 MG; Start 08/25/17 at 09:00 Loratadine (Claritin) 10 mg DAILY PO Last administered on 09/07/17 08:11; Admin Dose 10 MG; Start 08/25/17 at 09:00 Losartan Potassium (Cozaar) 50 mg DAILY PO Last administered on 09/07/17 08: 10; Admin Dose 50 MG; Start 08/25/17 at 09:00 Diagnostic Test (Pha) (Accu-Chek) 1 ea 02 XX Last administered on 09/06/17 02 :00; Admin Dose 1 EA; Start 08/26/17 at 02:00 Miscellaneous Information 1 ea NOTE XX ; Start 08/25/17 at 14:00 Glucose (Glutose) 15 gm Q15M PRN PO DECREASED GLUCOSE; Start 08/25/17 at 14:00 Glucose (Glutose) 22.5 gm Q15M PRN PO DECREASED GLUCOSE; Start 08/25/17 at 14: 00 Dextrose (D50w Syringe) 25 ml Q15M PRN IV DECREASED GLUCOSE Last administered on 09/05/17 12:07; Admin Dose 25 ML; Start 08/25/17 at 14:00 Dextrose (D50w Syringe) 50 ml Q15M PRN IV DECREASED GLUCOSE Last administered on 09/03/17 20:53; Admin Dose 50 ML; Start 08/25/17 at 14:00 Glucagon (Glucagen) 1 mg Q15M PRN IM DECREASED GLUCOSE; Start 08/25/17 at 14: 00 Glucose (Glutose) 15 gm Q15M PRN BUCCAL DECREASED GLUCOSE; Start 08/25/17 at 14:00 Acetaminophen 650 mg 650 mg Q4H PRN PO PAIN AND OR ELEVATED TEMP Last administered on 08/26/17 17:06; Admin Dose 650 MG; Start 08/25/17 at 20:30 Fluconazole (Diflucan 200 Mg/ NS (Pmx)) 100 ml @ 100 mls/hr Q24H IVPB Last administered on 09/07/17 12:14; Admin Dose 100 MLS/HR; Start 08/27/17 at 13: 00 Miscellaneous Medication (Bax Susp) 10 ml TID PO Last administered on 12:14; Admin Dose 10 ML; Start 08/29/17 at 13:00 Citric Acid/ Sodium Citrate 30 ml 30 ml TID PO Last administered on 09/07/17 12:14; Admin Dose 30 ML; Start 08/29/17 at 21:00 Leucovorin Calcium/Dextrose (Leucovorin Calcium Inj/D5W) 50 ml @ 200 mls/hr Q6H IV Last administered on 09/06/17 16:15; Admin Dose 200 MLS/HR; Start at 22:00; Status Future Hold Morphine Sulfate (morphine) 1 mg Q4H PRN IV LESS THAN 5/10 PAIN Last administered on 09/01/17 13:10; Admin Dose 1 MG; Start 08/30/17 at 20:00 Hydralazine HCl (Apresoline) 10 mg Q6H PRN IV ELEVATED SYSTOLIC BP Last administered on 09/07/17 04:35; Admin Dose 10 MG; Start 09/01/17 at 21:30 Silver Sulfadiazine (Thermazene 1% 400 Gm) 1 applic BID TOP Last administered on 09/07/17 08:11; Admin Dose 1 APPLIC; Start 09/04/17 at 14:00 Hydralazine HCl 10 mg 10 mg Q4H PRN IV ELEVATED BLOOD PRESSURE; Start at 01:00 Meropenem/Sodium Chloride 50 ml @ 100 mls/hr Q12 IVPB Last administered on 08:09; Admin Dose 100 MLS/HR; Start 09/05/17 at 23:00 Vancomycin HCl/ Sodium Chloride (Vancocin/NS) 250 ml @ 83.333 mls/ hr Q72H IVPB ; Start 09/08/17 at 13:00 Insulin Glargine (Lantus) 11 unit DAILY@10 SC Last administered on 09/07/17 08:21; Admin Dose 11 UNIT; Start 09/07/17 at 10:00 Prednisone (Prednisone) 40 mg DAILY PO Last administered on 09/07/17 08:10; Admin Dose 40 MG; Start 09/07/17 at 09:00 Heparin Sodium (Porcine) (Heparin (5000 Units/0.5 ml)) 5,000 unit Q8 SC Last administered on 09/07/17 05:47; Admin Dose 5,000 UNIT; Start 09/06/17 at 22: 00 Furosemide (Lasix) 40 mg DAILY IV ; Start 09/08/17 at 09:00 SARY DUQUE MD Sep 07, 2017 13:08
--- NOTE | 2017-09-07 13:30 | CONS ---
Date/Time of Note Date/Time of Note DATE: 09/07/17 TIME: 13:30 Consult Date/Type/Reason Admit Date/Time Aug 24, 2017 at 19:05 Initial Consult Date 08/29/17 Type of Consultation: ID Ordering Provider: GIA DUMONT Objective Vital Signs Date Time Temp Pulse Resp B/P Pulse Ox O2 Delivery O2 Flow Rate FiO2 09/07/17 12:33 80 09/07/17 11:11 98.1 18 160/72 94 09/07/17 08:30 3.0 09/07/17 08:29 Nasal Cannula 09/05/17 16:30 100 Intake and Output 09/06/17 09/06/17 09/07/17 15:00 23:00 07:00 Intake Total 530 ml 500 ml Output Total 2450 ml 1000 ml Balance -1920 ml -500 ml Results/Medications Result Diagram: 09/07/17 0816 09/07/17 0815 Results 24 hrs Laboratory Tests Test 09/06/17 17:29 09/06/17 21:23 09/07/17 02:54 09/07/17 08:07 Bedside Glucose 256 H 248 H 223 H 195 Test 09/07/17 08:15 09/07/17 08:16 09/07/17 12:13 Absolute Reticulocyte Count 0.034 Percent Reticulocyte Count 1.3 Sodium Level 134 L Potassium Level 3.5 Chloride Level 103 Carbon Dioxide Level 21 Anion Gap 14 Blood Urea Nitrogen 42 H Creatinine 2.69 H Glucose Level 155 Calcium Level 8.4 White Blood Count 35.1 H Red Blood Count 2.68 L Hemoglobin 7.9 L Hematocrit 23.9 L Mean Corpuscular Volume 89.2 Mean Corpuscular Hemoglobin 29.5 Mean Corpuscular Hemoglobin Concent 33.1 Red Cell Distribution Width 17.9 H Platelet Count 195 # Mean Platelet Volume 11.3 H Neutrophils % Lymphocytes % Monocytes % Eosinophils % Basophils % Nucleated Red Blood Cells % 0.2 H Neutrophils # Lymphocytes # Monocytes # Eosinophils # Basophils # Nucleated Red Blood Cells # Bedside Glucose 237 H Medications Current Medications Ondansetron HCl (Zofran Inj) 4 mg Q6H PRN IV NAUSEA AND/OR VOMITING Last administered on 09/04/17t 13:47; Admin Dose 4 MG; Start 08/25/17 at 08:00 Morphine Sulfate (morphine) 2 mg Q4H PRN IV 5-08/24 PAIN Last administered on 09/01/17 20:06; Admin Dose 2 MG; Start 08/25/17 at 08:00 Amlodipine Besylate (Norvasc) 5 mg DAILY PO Last administered on 09/07/17 08: 10; Admin Dose 5 MG; Start 08/25/17 at 09:00 Bisoprolol Fumarate (Zebeta) 10 mg DAILY PO Last administered on 09/07/17 08: 11; Admin Dose 10 MG; Start 08/25/17 at 09:00 Loratadine (Claritin) 10 mg DAILY PO Last administered on 09/07/17 08:11; Admin Dose 10 MG; Start 08/25/17 at 09:00 Losartan Potassium (Cozaar) 50 mg DAILY PO Last administered on 09/07/17 08: 10; Admin Dose 50 MG; Start 08/25/17 at 09:00 Diagnostic Test (Pha) (Accu-Chek) 1 ea 02 XX Last administered on 09/06/17 02 :00; Admin Dose 1 EA; Start 08/26/17 at 02:00 Miscellaneous Information 1 ea NOTE XX ; Start 08/25/17 at 14:00 Glucose (Glutose) 15 gm Q15M PRN PO DECREASED GLUCOSE; Start 08/25/17 at 14:00 Glucose (Glutose) 22.5 gm Q15M PRN PO DECREASED GLUCOSE; Start 08/25/17 at 14: 00 Dextrose (D50w Syringe) 25 ml Q15M PRN IV DECREASED GLUCOSE Last administered on 09/05/17 12:07; Admin Dose 25 ML; Start 08/25/17 at 14:00 Dextrose (D50w Syringe) 50 ml Q15M PRN IV DECREASED GLUCOSE Last administered on 09/03/17 20:53; Admin Dose 50 ML; Start 08/25/17 at 14:00 Glucagon (Glucagen) 1 mg Q15M PRN IM DECREASED GLUCOSE; Start 08/25/17 at 14: 00 Glucose (Glutose) 15 gm Q15M PRN BUCCAL DECREASED GLUCOSE; Start 08/25/17 at 14:00 Acetaminophen 650 mg 650 mg Q4H PRN PO PAIN AND OR ELEVATED TEMP Last administered on 08/26/17 17:06; Admin Dose 650 MG; Start 08/25/17 at 20:30 Fluconazole (Diflucan 200 Mg/ NS (Pmx)) 100 ml @ 100 mls/hr Q24H IVPB Last administered on 09/07/17 12:14; Admin Dose 100 MLS/HR; Start 08/27/17 at 13: 00 Miscellaneous Medication (Bax Susp) 10 ml TID PO Last administered on 12:14; Admin Dose 10 ML; Start 08/29/17 at 13:00 Citric Acid/ Sodium Citrate 30 ml 30 ml TID PO Last administered on 09/07/17 12:14; Admin Dose 30 ML; Start 08/29/17 at 21:00 Leucovorin Calcium/Dextrose (Leucovorin Calcium Inj/D5W) 50 ml @ 200 mls/hr Q6H IV Last administered on 09/06/17 16:15; Admin Dose 200 MLS/HR; Start at 22:00; Status Future Hold Morphine Sulfate (morphine) 1 mg Q4H PRN IV LESS THAN 5/10 PAIN Last administered on 09/01/17 13:10; Admin Dose 1 MG; Start 08/30/17 at 20:00 Hydralazine HCl (Apresoline) 10 mg Q6H PRN IV ELEVATED SYSTOLIC BP Last administered on 09/07/17 04:35; Admin Dose 10 MG; Start 09/01/17 at 21:30 Silver Sulfadiazine (Thermazene 1% 400 Gm) 1 applic BID TOP Last administered on 09/07/17 08:11; Admin Dose 1 APPLIC; Start 09/04/17 at 14:00 Hydralazine HCl 10 mg 10 mg Q4H PRN IV ELEVATED BLOOD PRESSURE; Start at 01:00 Meropenem/Sodium Chloride 50 ml @ 100 mls/hr Q12 IVPB Last administered on 08:09; Admin Dose 100 MLS/HR; Start 09/05/17 at 23:00 Vancomycin HCl/ Sodium Chloride (Vancocin/NS) 250 ml @ 83.333 mls/ hr Q72H IVPB ; Start 09/08/17 at 13:00 Insulin Glargine (Lantus) 11 unit DAILY@10 SC Last administered on 09/07/17 08:21; Admin Dose 11 UNIT; Start 09/07/17 at 10:00 Prednisone (Prednisone) 40 mg DAILY PO Last administered on 09/07/17 08:10; Admin Dose 40 MG; Start 09/07/17 at 09:00 Heparin Sodium (Porcine) (Heparin (5000 Units/0.5 ml)) 5,000 unit Q8 SC Last administered on 09/07/17 05:47; Admin Dose 5,000 UNIT; Start 09/06/17 at 22: 00 Furosemide (Lasix) 40 mg DAILY IV ; Start 09/08/17 at 09:00 Epoetin Kashif (Epogen (Esrd)) 10,000 units TuThSa@17 SC ; Start 09/07/17 at 17: 00 Assessment/Plan Chief Complaint/Hosp Course SUBJECTIVE: Alert, comfortable on nc, no fevers, nad MICROBIOLOGY: Urine and blood cultures negative. ANTIMICROBIALS: 1. Fluconazole. 2. Vanco. 3. Merrem. PHYSICAL EXAMINATION: GENERAL: This is a well-developed, elderly woman who is in no distress. HEENT: Head atraumatic, normocephalic. Sclerae anicteric. Buccal mucosa dry. NECK: Supple. CHEST: Rise symmetrical. Breath sounds diminished to bases, scattered crackles. HEART: S1, S2. ABDOMEN: Soft, bowel tones present. EXTREMITIES: Without cyanosis. Left lower extremity dsg intact. ASSESSMENT: 1. Left lower extremity cellulitis 2. S/p acute resp failure ?PNA ? fluid overload 2. Pancytopenia/severe thrombocytopenia==>resolved. 3. S/p neutropenia . 4. Acute possibly on chronic kidney disease. 5. Hypertension. 6. Diabetes. PLAN: The patient remains stable, continue present care, LLE elevation, monitor CXR, f/u hematology/podiatry/renal/pulmonary rec-s DW staff Problems: CODY VASQUEZ NP Sep 07, 2017 13:30
--- NOTE | 2017-09-07 14:14 | RADRPT ---
Echocardiogram Report Patient Name: ASHLEY HERNÁNDEZ Gender: Female Date: 1955 Study Date: 05-Sep-2017 Advertising Assistant Manager: CHERRY Location: [id number] Ref. Physician: USAMA SULLIVAN Quality: Good Procedures: Transthoracic echocardiogram with complete 2D, M-Mode, and doppler examination. Indications: Elevated troponin. 2D/M Mode Doppler Measurement Value Normal Ranges Measurement Value Normal Ranges AoR Diam MM 2.7 cm ANTONIETTA Vmax 1.0 cm2 LA/Ao MM 1.5 ANTONIETTA VTI 1.0 cm2 LA Dimen MM 4.1 cm AV Mean Lefty 2.1 m/sec LVIDd 2D 4.9 3.5 - 5.6 cm AV Mean PG 19.8 mmHg LVIDs 2D 3.3 2.1 - 4.1 cm AV Peak Lefty 3.0 m/sec LVPWd 2D 1.2 0.6 - 1.1 cm AV Peak PG 37.1 mmHg IVSd 2D 1.2 0.6 - 1.1 cm AV VTI 59.3 cm EDV 2D 114.2 cm3 LVOT Mean Lefty 0.8 m/sec ESV 2D 35.2 cm3 LVOT Mean PG 3.0 mmHg EF 2D 62.0 50.0 - 65.0 % LVOT Peak Lefty 1.1 m/sec LVOT Diam 1.8 cm LVOT Peak PG 5.2 mmHg LVOT VTI 22.6 cm MV E Peak Lefty 1.1 m/sec MV A Peak Lefty 1.2 m/sec MV E/A 0.9 MV Decel Time 173 msec MV Decel Evans 6 MV E/A 0.9 TR Peak Lefty 2.7 m/sec TR Peak PG 29.9 mmHg Findings Left Ventricle: Normal left ventricular systolic function. Normal left ventricular cavity size. Mild concentric left ventricular hypertrophy. Ejection fraction is visually estimated at 65 %. Tissue Doppler/Mitral Doppler indices are consistent with impaired relaxation (Stage I diastolic dysfunction). Right Ventricle: Normal right ventricular size. Normal right ventricular systolic function. Left Atrium: There is mild enlargement of left atrium. Right Atrium: The right atrium is normal in size. Mitral Valve: Mild mitral annular calcification. Mild mitral valve regurgitation. Aortic Valve: Mild to moderate aortic stenosis. Mean PG 19.80 mmHg. Aortic cusps appear mild-moderately calcified. Trace aortic valve regurgitation. Tricuspid Valve: Normal appearance of the tricuspid valve. Estimated peak PA systolic pressure 38 mmHg. There is mild tricuspid regurgitation. Pulmonic Valve: Normal pulmonic valve appearance. There is trace pulmonic regurgitation. Pericardium: Normal pericardium with no significant pericardial effusion. Left pleural effusion seen. Aorta: Normal aortic root. IVC: Dilated IVC with respiratory collapse consistent with elevated right atrial pressure. Conclusions 1.Normal left ventricular systolic function. Normal left ventricular cavity size. Mild concentric left ventricular hypertrophy. Ejection fraction is visually estimated at 65 %. Tissue Doppler/Mitral Doppler indices are consistent with impaired relaxation (Stage I diastolic dysfunction). 2.Normal right ventricular size. Normal right ventricular systolic function. 3.There is mild enlargement of left atrium. 4.The right atrium is normal in size. 5.Mild valve regurgitation. 6.Mild to moderate aortic stenosis. Trace aortic valve regurgitation. 7.Estimated peak PA systolic pressure 38 mmHg. There is mild tricuspid regurgitation. 8.Normal pericardium with no significant pericardial effusion. Left pleural effusion seen. Electronically Signed By: Tj Marie 07-Sep-2017 14:13:45 -0700 Patient Name: ASHLEY HERNÁNDEZ Study Date: 05-Sep-[id number]
--- NOTE | 2017-09-07 15:02 | CONS ---
Date/Time of Note Date/Time of Note DATE: 09/07/17 TIME: 15:01 Consult Date/Type/Reason Admit Date/Time Aug 24, 2017 at 19:05 Initial Consult Date 08/31/17 Type of Consultation: Pulmonary Ordering Provider: GIA DUMONT Subjective Breathing overall has improved. Objective Vital Signs Date Time Temp Pulse Resp B/P Pulse Ox O2 Delivery O2 Flow Rate FiO2 09/07/17 13:44 84 28 94 Nasal Cannula 3.0 09/07/17 11:11 98.1 160/72 09/05/17 16:30 100 Intake and Output 09/06/17 09/06/17 09/07/17 15:00 23:00 07:00 Intake Total 530 ml 500 ml Output Total 2450 ml 1000 ml Balance -1920 ml -500 ml Exam PHYSICAL EXAMINATION GENERAL: Elderly appearing lady appears comfortable at rest no acute distress VITAL SIGNS: see below. HEENT: Pupils equal, round, and reactive to light. CARDIAC: S1, S2, 1/6 systolic ejection murmur CHEST: Diminished air entry bilaterally. ABDOMEN: Mildly distended. Bowel sounds present no guarding or rebound EXTREMITIES: No cyanosis, clubbing edema +1 NEUROLOGIC: Generalized weakness Results/Medications Result Diagram: 09/07/17 0816 09/07/17 0815 Results 24 hrs Laboratory Tests Test 09/06/17 17:29 09/06/17 21:23 09/07/17 02:54 09/07/17 08:07 Bedside Glucose 256 H 248 H 223 H 195 Test 09/07/17 08:15 09/07/17 08:16 09/07/17 12:13 Absolute Reticulocyte Count 0.034 Percent Reticulocyte Count 1.3 Sodium Level 134 L Potassium Level 3.5 Chloride Level 103 Carbon Dioxide Level 21 Anion Gap 14 Blood Urea Nitrogen 42 H Creatinine 2.69 H Glucose Level 155 Calcium Level 8.4 White Blood Count 35.1 H Red Blood Count 2.68 L Hemoglobin 7.9 L Hematocrit 23.9 L Mean Corpuscular Volume 89.2 Mean Corpuscular Hemoglobin 29.5 Mean Corpuscular Hemoglobin Concent 33.1 Red Cell Distribution Width 17.9 H Platelet Count 195 # Mean Platelet Volume 11.3 H Neutrophils % Segmented Neutrophils % (Manual) 58 Band Neutrophils % (Manual) 11 H Lymphocytes % Lymphocytes % (Manual) 6 L Reactive Lymphocytes % (Manual) 6 H Monocytes % Monocytes % (Manual) 19 H Eosinophils % Basophils % Nucleated Red Blood Cells % 0.2 H Neutrophils # Neutrophils # (Manual) 21.7 H Band Neutrophils # 3.8 H Absolute Lymphocytes (Manual) 2.1 Lymphocytes # 2.1 Reactive Lymphocytes # 2.1 H Monocytes # 6.7 H Absolute Monocytes (Manual) 6.6 H Eosinophils # Basophils # Nucleated Red Blood Cells # Anisocytosis 1+ Microcytosis 1+ Bedside Glucose 237 H Medications Current Medications Ondansetron HCl (Zofran Inj) 4 mg Q6H PRN IV NAUSEA AND/OR VOMITING Last administered on 09/04/17 13:47; Admin Dose 4 MG; Start 08/25/17 at 08:00 Morphine Sulfate (morphine) 2 mg Q4H PRN IV PAIN Last administered on 09/01/17 20:06; Admin Dose 2 MG; Start 08/25/17 at 08:00 Bisoprolol Fumarate (Zebeta) 10 mg DAILY PO Last administered on 09/07/17 08: 11; Admin Dose 10 MG; Start 08/25/17 at 09:00 Loratadine (Claritin) 10 mg DAILY PO Last administered on 09/07/17 08:11; Admin Dose 10 MG; Start 08/25/17 at 09:00 Losartan Potassium (Cozaar) 50 mg DAILY PO Last administered on 09/07/17 08: 10; Admin Dose 50 MG; Start 08/25/17 at 09:00 Diagnostic Test (Pha) (Accu-Chek) 1 ea 02 XX Last administered on 09/06/17 02 :00; Admin Dose 1 EA; Start 08/26/17 at 02:00 Miscellaneous Information 1 ea NOTE XX ; Start 08/25/17 at 14:00 Glucose (Glutose) 15 gm Q15M PRN PO DECREASED GLUCOSE; Start 08/25/17 at 14:00 Glucose (Glutose) 22.5 gm Q15M PRN PO DECREASED GLUCOSE; Start 08/25/17 at 14: 00 Dextrose (D50w Syringe) 25 ml Q15M PRN IV DECREASED GLUCOSE Last administered on 09/05/17 12:07; Admin Dose 25 ML; Start 08/25/17 at 14:00 Dextrose (D50w Syringe) 50 ml Q15M PRN IV DECREASED GLUCOSE Last administered on 09/03/17 20:53; Admin Dose 50 ML; Start 08/25/17 at 14:00 Glucagon (Glucagen) 1 mg Q15M PRN IM DECREASED GLUCOSE; Start 08/25/17 at 14: 00 Glucose (Glutose) 15 gm Q15M PRN BUCCAL DECREASED GLUCOSE; Start 08/25/17 at 14:00 Acetaminophen 650 mg 650 mg Q4H PRN PO PAIN AND OR ELEVATED TEMP Last administered on 08/26/17 17:06; Admin Dose 650 MG; Start 08/25/17 at 20:30 Fluconazole (Diflucan 200 Mg/ NS (Pmx)) 100 ml @ 100 mls/hr Q24H IVPB Last administered on 09/07/17 12:14; Admin Dose 100 MLS/HR; Start 08/27/17 at 13: 00 Miscellaneous Medication (Bax Susp) 10 ml TID PO Last administered on 12:14; Admin Dose 10 ML; Start 08/29/17 at 13:00 Citric Acid/ Sodium Citrate 30 ml 30 ml TID PO Last administered on 09/07/17 12:14; Admin Dose 30 ML; Start 08/29/17 at 21:00 Leucovorin Calcium/Dextrose (Leucovorin Calcium Inj/D5W) 50 ml @ 200 mls/hr Q6H IV Last administered on 09/06/17 16:15; Admin Dose 200 MLS/HR; Start at 22:00; Status Future Hold Morphine Sulfate (morphine) 1 mg Q4H PRN IV LESS THAN 5/10 PAIN Last administered on 09/01/17 13:10; Admin Dose 1 MG; Start 08/30/17 at 20:00 Hydralazine HCl (Apresoline) 10 mg Q6H PRN IV ELEVATED SYSTOLIC BP Last administered on 09/07/17 04:35; Admin Dose 10 MG; Start 09/01/17 at 21:30 Silver Sulfadiazine (Thermazene 1% 400 Gm) 1 applic BID TOP Last administered on 09/07/17 08:11; Admin Dose 1 APPLIC; Start 09/04/17 at 14:00 Hydralazine HCl 10 mg 10 mg Q4H PRN IV ELEVATED BLOOD PRESSURE; Start at 01:00 Meropenem/Sodium Chloride 50 ml @ 100 mls/hr Q12 IVPB Last administered on 08:09; Admin Dose 100 MLS/HR; Start 09/05/17 at 23:00 Vancomycin HCl/ Sodium Chloride (Vancocin/NS) 250 ml @ 83.333 mls/ hr Q72H IVPB ; Start 09/08/17 at 13:00 Heparin Sodium (Porcine) (Heparin (5000 Units/0.5 ml)) 5,000 unit Q8 SC Last administered on 09/07/17 14:36; Admin Dose 5,000 UNIT; Start 09/06/17 at 22: 00 Furosemide (Lasix) 40 mg DAILY IV ; Start 09/08/17 at 09:00 Epoetin Kashif (Epogen (Esrd)) 10,000 units TuThSa@17 SC ; Start 09/07/17 at 17: 00 Prednisone (Prednisone) 30 mg DAILY PO ; Start 09/08/17 at 09:00 Amlodipine Besylate (Norvasc) 10 mg DAILY PO ; Start 09/08/17 at 09:00 Insulin Glargine (Lantus) 13 unit DAILY@10 SC ; Start 09/08/17 at 10:00 Assessment/Plan Chief Complaint/Hosp Course IMPRESSION: Hypoxemic respiratory insufficiency in the setting of hypertension, chronic kidney disease and volume overload. RECOMMENDATIONS: 1. Agree with continuation of antibiotics, although I do not suspect that this is a pneumonic process. 2. Agree with decreasing Lasix. 3. Cardiac recommendations 4. Aspiration precautions 5. Decrease FiO2 as tolerated PT evaluation Repeat chest x-ray in a.m. Problems: TANI TOLEDO MD, [facility] Sep 07, 2017 15:02
--- NOTE | 2017-09-07 15:19 | CONS ---
Date/Time of Note Date/Time of Note DATE: 09/07/17 TIME: 15:17 Assessment/Plan Assessment/Plan Additional Assessment/Plan Acute decompensated diastolic congestive heart failure Preserved ejection fraction Mild to moderate aortic valve stenosis Volume overload Sepsis Pneumonia Cellulitis Renal dysfunction -Echocardiogram with preserved ejection fraction, mild to moderate aortic valve stenosis. IVC is dilated but does collapse with inspiration. Continue diuretics as per our nephrology colleagues. Antibiotics as per infectious disease. Consultation Date/Type/Reason Admit Date/Time Aug 24, 2017 at 19:05 Initial Consult Date 08/31/17 Type of Consultation: cv Referring Provider: GIA DUMONT 24 HR Interval Summary Free Text/Dictation Patient seen and examined, feeling better Exam/Review of Systems Vital Signs Vitals Vital Signs Date Time Temp Pulse Resp B/P Pulse Ox O2 Delivery O2 Flow Rate FiO2 09/07/17 13:44 84 28 94 Nasal Cannula 3.0 09/07/17 11:11 98.1 160/72 09/05/17 16:30 100 Intake and Output 09/06/17 09/06/17 09/07/17 15:00 23:00 07:00 Intake Total 530 ml 500 ml Output Total 2450 ml 1000 ml Balance -1920 ml -500 ml Exam No apparent distress Constitutional: alert, oriented Head: normocephalic Respiratory: other (Coarse breath sounds bilaterally with scattered rhonchi, no wheezing) Cardiovascular: other (S1-S2 heard), regular rate and rhythm, systolic murmur Gastrointestinal: bowel sounds, non-tender, soft Extremities: edema, other (Bandage left lower extremity) Results Result Diagram: 09/07/17 0816 09/07/17 0815 Results 24 hrs Laboratory Tests Test 09/06/17 17:29 09/06/17 21:23 09/07/17 02:54 09/07/17 08:07 Bedside Glucose 256 H 248 H 223 H 195 Test 09/07/17 08:15 09/07/17 08:16 09/07/17 12:13 Absolute Reticulocyte Count 0.034 Percent Reticulocyte Count 1.3 Sodium Level 134 L Potassium Level 3.5 Chloride Level 103 Carbon Dioxide Level 21 Anion Gap 14 Blood Urea Nitrogen 42 H Creatinine 2.69 H Glucose Level 155 Calcium Level 8.4 White Blood Count 35.1 H Red Blood Count 2.68 L Hemoglobin 7.9 L Hematocrit 23.9 L Mean Corpuscular Volume 89.2 Mean Corpuscular Hemoglobin 29.5 Mean Corpuscular Hemoglobin Concent 33.1 Red Cell Distribution Width 17.9 H Platelet Count 195 # Mean Platelet Volume 11.3 H Neutrophils % Segmented Neutrophils % (Manual) 58 Band Neutrophils % (Manual) 11 H Lymphocytes % Lymphocytes % (Manual) 6 L Reactive Lymphocytes % (Manual) 6 H Monocytes % Monocytes % (Manual) 19 H Eosinophils % Basophils % Nucleated Red Blood Cells % 0.2 H Neutrophils # Neutrophils # (Manual) 21.7 H Band Neutrophils # 3.8 H Absolute Lymphocytes (Manual) 2.1 Lymphocytes # 2.1 Reactive Lymphocytes # 2.1 H Monocytes # 6.7 H Absolute Monocytes (Manual) 6.6 H Eosinophils # Basophils # Nucleated Red Blood Cells # Anisocytosis 1+ Microcytosis 1+ Bedside Glucose 237 H Medications Medications Current Medications Ondansetron HCl (Zofran Inj) 4 mg Q6H PRN IV NAUSEA AND/OR VOMITING Last administered on 09/04/17 13:47; Admin Dose 4 MG; Start 08/25/17 at 08:00 Morphine Sulfate (morphine) 2 mg Q4H PRN IV PAIN Last administered on 09/01/17 20:06; Admin Dose 2 MG; Start 08/25/17 at 08:00 Bisoprolol Fumarate (Zebeta) 10 mg DAILY PO Last administered on 09/07/17 08: 11; Admin Dose 10 MG; Start 08/25/17 at 09:00 Loratadine (Claritin) 10 mg DAILY PO Last administered on 09/07/17 08:11; Admin Dose 10 MG; Start 08/25/17 at 09:00 Losartan Potassium (Cozaar) 50 mg DAILY PO Last administered on 09/07/17 08: 10; Admin Dose 50 MG; Start 08/25/17 at 09:00 Diagnostic Test (Pha) (Accu-Chek) 1 ea 02 XX Last administered on 09/06/17 02 :00; Admin Dose 1 EA; Start 08/26/17 at 02:00 Miscellaneous Information 1 ea NOTE XX ; Start 08/25/17 at 14:00 Glucose (Glutose) 15 gm Q15M PRN PO DECREASED GLUCOSE; Start 08/25/17 at 14:00 Glucose (Glutose) 22.5 gm Q15M PRN PO DECREASED GLUCOSE; Start 08/25/17 at 14: 00 Dextrose (D50w Syringe) 25 ml Q15M PRN IV DECREASED GLUCOSE Last administered on 09/05/17 12:07; Admin Dose 25 ML; Start 08/25/17 at 14:00 Dextrose (D50w Syringe) 50 ml Q15M PRN IV DECREASED GLUCOSE Last administered on 09/03/17 20:53; Admin Dose 50 ML; Start 08/25/17 at 14:00 Glucagon (Glucagen) 1 mg Q15M PRN IM DECREASED GLUCOSE; Start 08/25/17 at 14: 00 Glucose (Glutose) 15 gm Q15M PRN BUCCAL DECREASED GLUCOSE; Start 08/25/17 at 14:00 Acetaminophen 650 mg 650 mg Q4H PRN PO PAIN AND OR ELEVATED TEMP Last administered on 08/26/17 17:06; Admin Dose 650 MG; Start 08/25/17 at 20:30 Fluconazole (Diflucan 200 Mg/ NS (Pmx)) 100 ml @ 100 mls/hr Q24H IVPB Last administered on 09/07/17 12:14; Admin Dose 100 MLS/HR; Start 08/27/17 at 13: 00 Miscellaneous Medication (Bax Susp) 10 ml TID PO Last administered on 12:14; Admin Dose 10 ML; Start 08/29/17 at 13:00 Citric Acid/ Sodium Citrate 30 ml 30 ml TID PO Last administered on 09/07/17 12:14; Admin Dose 30 ML; Start 08/29/17 at 21:00 Leucovorin Calcium/Dextrose (Leucovorin Calcium Inj/D5W) 50 ml @ 200 mls/hr Q6H IV Last administered on 09/06/17 16:15; Admin Dose 200 MLS/HR; Start at 22:00; Status Future Hold Morphine Sulfate (morphine) 1 mg Q4H PRN IV LESS THAN 5/10 PAIN Last administered on 09/01/17 13:10; Admin Dose 1 MG; Start 08/30/17 at 20:00 Hydralazine HCl (Apresoline) 10 mg Q6H PRN IV ELEVATED SYSTOLIC BP Last administered on 09/07/17 04:35; Admin Dose 10 MG; Start 09/01/17 at 21:30 Silver Sulfadiazine (Thermazene 1% 400 Gm) 1 applic BID TOP Last administered on 09/07/17 08:11; Admin Dose 1 APPLIC; Start 09/04/17 at 14:00 Hydralazine HCl 10 mg 10 mg Q4H PRN IV ELEVATED BLOOD PRESSURE; Start at 01:00 Meropenem/Sodium Chloride 50 ml @ 100 mls/hr Q12 IVPB Last administered on 08:09; Admin Dose 100 MLS/HR; Start 09/05/17 at 23:00 Vancomycin HCl/ Sodium Chloride (Vancocin/NS) 250 ml @ 83.333 mls/ hr Q72H IVPB ; Start 09/08/17 at 13:00 Heparin Sodium (Porcine) (Heparin (5000 Units/0.5 ml)) 5,000 unit Q8 SC Last administered on 09/07/17 14:36; Admin Dose 5,000 UNIT; Start 09/06/17 at 22: 00 Furosemide (Lasix) 40 mg DAILY IV ; Start 09/08/17 at 09:00 Epoetin Kashif (Epogen (Esrd)) 10,000 units TuThSa@17 SC ; Start 09/07/17 at 17: 00 Prednisone (Prednisone) 30 mg DAILY PO ; Start 09/08/17 at 09:00 Amlodipine Besylate (Norvasc) 10 mg DAILY PO ; Start 09/08/17 at 09:00 Insulin Glargine (Lantus) 13 unit DAILY@10 SC ; Start 09/08/17 at 10:00 Tj Marie DO Sep 07, 2017 15:19
[2017-09-07] MEDS: EPOETIN 10000 UNITS/1 ML INJ (ESRD) SC SCH (17:07)
[2017-09-07] MEDS ORDERED: VITAMIN A & D 5 GM OINT PACKET TOP ONE (20:41)
--- NOTE | 2017-09-07 22:23 | PN ---
Date/Time of Note Date/Time of Note DATE: 09/07/17 TIME: 22:16 Assessment/Plan VTE Prophylaxis VTE Prophylaxis Intervention: heparin Lines/Catheters IV Catheter Type (from Nrsg): Saline Lock Urinary Cath still in place: Yes Reason Cath still needed: terminal illness/intractable pain Assessment/Plan Chief Complaint/Hosp Course Patient is a 61-year-old female with a past medical history of hypertension, diabetes, CKD who presented for left lower extremity cellulitis. Assessment/Plan 1. Bilateral Pneumonia - Patient found to have b/l PNA on chest xray - On antibiotics and changed to Meropenem per ID - Pulmonology consultation placed and appreciated recommendations, doubts PNA process - On Neb treatments -tapering steroids #pulmonary edema - likely etiology given elevated BNP and xray -continue IV lasix, careful given Cr -echo noted #acute on chronic diastolic congestive heart failure -continue lasix -cards recs appreciated -echo noted 2. Left lower extremity cellulitis - ID and Surgery on board. Recommendations appreciated - Antibiotic per ID - CT LE showed cellulitis and no evidence of osteomyelitis. Xray LE also performed and no osteomyelitis appreciated. -gen surg/vascular surg do not feel any acute intervention is needed -wraps 3. Mucositis 2/2 methotrexate use- improving - diphen/lido/mal oral solution ordered. Morphine if pain remain intolerable for PO intake - Tolerating soft mech diet 4. Pancytopenia- improving -now leukocytosis, possible due to filgrastim per heme/onc - No transfusions needed today - Hematology on board and recommendations appreciated. - s/p multiple blood transfusions and plt transfusions. #leukocytosis -profound, ? steroids combined with neupogen. 5. Neutropenia- resolved - WBC >30 and Neupogen no longer on board - Will continue to monitor - Heme on board and recommendations appreciated 6. BK vs BK on CKD - Nephrology on board and recommendations appreciated. - Cr elevated, but lower than admission, likely chronic component - Monitor UOP - HIV negative, KASSY negative 7. Hypokalemia - stable 8. Eosinophilia - normalized after d/c sulfasalazine and mtx 9. Vascular insufficiency - Vascular surgery on board and recommendations appreciated. No current vascular intervention as the patient has not developed any gangrene or ulcers - Will need to follow up as outpatient due to LE atherosclerosis DISPO: Will need to finalize abx per ID, diurese, watch white count, when showing signs of stability, DC to SNF once on stable dose of lasix oral Problems: Subjective 24 Hr Interval Summary Free Text/Dictation patient resting comfortably, states left leg pain is better Exam/Review of Systems Vital Signs Vitals Vital Signs Date Time Temp Pulse Resp B/P Pulse Ox O2 Delivery O2 Flow Rate FiO2 09/07/17 21:42 3.0 09/07/17 21:42 85 24 95 Nasal Cannula 09/07/17 20:00 97.5 149/72 09/05/17 16:30 100 Intake and Output 09/06/17 09/06/17 09/07/17 15:00 23:00 07:00 Intake Total 530 ml 500 ml Output Total 2450 ml 1000 ml Balance -1920 ml -500 ml Exam Physical exam General: Patient is laying in bed and responds appropriate Mentation: Patient is alert and oriented 4, Head: Normocephalic atraumatic Eyes: EOMI, pupils reactive to light Neck: Supple, nontender, midline Respiratory: coarse to auscultation bilaterally, with wheezing Cardiovascular: regular rate, no obvious murmurs Gastrointestinal: non-tender to palpation, bowel sounds heard. Neurological: Moves all extremities spontaneously Skin: left leg erythematous, mild tenderness. Results Result Diagram: 09/07/17 0816 09/07/17 0815 Results 24 hrs Laboratory Tests Test 09/07/17 02:54 09/07/17 08:07 09/07/17 08:15 09/07/17 08:16 Bedside Glucose 223 H 195 Absolute Reticulocyte Count 0.034 Percent Reticulocyte Count 1.3 Sodium Level 134 L Potassium Level 3.5 Chloride Level 103 Carbon Dioxide Level 21 Anion Gap 14 Blood Urea Nitrogen 42 H Creatinine 2.69 H Glucose Level 155 Calcium Level 8.4 White Blood Count 35.1 H Red Blood Count 2.68 L Hemoglobin 7.9 L Hematocrit 23.9 L Mean Corpuscular Volume 89.2 Mean Corpuscular Hemoglobin 29.5 Mean Corpuscular Hemoglobin Concent 33.1 Red Cell Distribution Width 17.9 H Platelet Count 195 # Mean Platelet Volume 11.3 H Neutrophils % Segmented Neutrophils % (Manual) 58 Band Neutrophils % (Manual) 11 H Lymphocytes % Lymphocytes % (Manual) 6 L Reactive Lymphocytes % (Manual) 6 H Monocytes % Monocytes % (Manual) 19 H Eosinophils % Basophils % Nucleated Red Blood Cells % 0.2 H Neutrophils # Neutrophils # (Manual) 21.7 H Band Neutrophils # 3.8 H Absolute Lymphocytes (Manual) 2.1 Lymphocytes # 2.1 Reactive Lymphocytes # 2.1 H Monocytes # 6.7 H Absolute Monocytes (Manual) 6.6 H Eosinophils # Basophils # Nucleated Red Blood Cells # Anisocytosis 1+ Microcytosis 1+ Test 09/07/17 12:13 09/07/17 17:05 09/07/17 21:19 Bedside Glucose 237 H 237 H 241 H Medications Medications Current Medications Ondansetron HCl (Zofran Inj) 4 mg Q6H PRN IV NAUSEA AND/OR VOMITING Last administered on 09/04/17 13:47; Admin Dose 4 MG; Start 08/25/17 at 08:00 Morphine Sulfate (morphine) 2 mg Q4H PRN IV PAIN Last administered on 09/01/17 20:06; Admin Dose 2 MG; Start 08/25/17 at 08:00 Bisoprolol Fumarate (Zebeta) 10 mg DAILY PO Last administered on 09/07/17 08: 11; Admin Dose 10 MG; Start 08/25/17 at 09:00 Loratadine (Claritin) 10 mg DAILY PO Last administered on 09/07/17 08:11; Admin Dose 10 MG; Start 08/25/17 at 09:00 Losartan Potassium (Cozaar) 50 mg DAILY PO Last administered on 09/07/17 08: 10; Admin Dose 50 MG; Start 08/25/17 at 09:00 Diagnostic Test (Pha) (Accu-Chek) 1 ea 02 XX Last administered on 09/06/17 02 :00; Admin Dose 1 EA; Start 08/26/17 at 02:00 Miscellaneous Information 1 ea NOTE XX ; Start 08/25/17 at 14:00 Glucose (Glutose) 15 gm Q15M PRN PO DECREASED GLUCOSE; Start 08/25/17 at 14:00 Glucose (Glutose) 22.5 gm Q15M PRN PO DECREASED GLUCOSE; Start 08/25/17 at 14: 00 Dextrose (D50w Syringe) 25 ml Q15M PRN IV DECREASED GLUCOSE Last administered on 09/05/17 12:07; Admin Dose 25 ML; Start 08/25/17 at 14:00 Dextrose (D50w Syringe) 50 ml Q15M PRN IV DECREASED GLUCOSE Last administered on 09/03/17 20:53; Admin Dose 50 ML; Start 08/25/17 at 14:00 Glucagon (Glucagen) 1 mg Q15M PRN IM DECREASED GLUCOSE; Start 08/25/17 at 14: 00 Glucose (Glutose) 15 gm Q15M PRN BUCCAL DECREASED GLUCOSE; Start 08/25/17 at 14:00 Acetaminophen 650 mg 650 mg Q4H PRN PO PAIN AND OR ELEVATED TEMP Last administered on 08/26/17 17:06; Admin Dose 650 MG; Start 08/25/17 at 20:30 Fluconazole (Diflucan 200 Mg/ NS (Pmx)) 100 ml @ 100 mls/hr Q24H IVPB Last administered on 09/07/17 12:14; Admin Dose 100 MLS/HR; Start 08/27/17 at 13: 00 Miscellaneous Medication (Bax Susp) 10 ml TID PO Last administered on 21:21; Admin Dose 10 ML; Start 08/29/17 at 13:00 Citric Acid/ Sodium Citrate 30 ml 30 ml TID PO Last administered on 09/07/17 21:23; Admin Dose 30 ML; Start 08/29/17 at 21:00 Leucovorin Calcium/Dextrose (Leucovorin Calcium Inj/D5W) 50 ml @ 200 mls/hr Q6H IV Last administered on 09/06/17 16:15; Admin Dose 200 MLS/HR; Start at 22:00; Status Future Hold Morphine Sulfate (morphine) 1 mg Q4H PRN IV LESS THAN 5/10 PAIN Last administered on 09/01/17 13:10; Admin Dose 1 MG; Start 08/30/17 at 20:00 Hydralazine HCl (Apresoline) 10 mg Q6H PRN IV ELEVATED SYSTOLIC BP Last administered on 09/07/17 04:35; Admin Dose 10 MG; Start 09/01/17 at 21:30 Silver Sulfadiazine (Thermazene 1% 400 Gm) 1 applic BID TOP Last administered on 09/07/17 21:21; Admin Dose 1 APPLIC; Start 09/04/17 at 14:00 Hydralazine HCl 10 mg 10 mg Q4H PRN IV ELEVATED BLOOD PRESSURE; Start at 01:00 Meropenem/Sodium Chloride 50 ml @ 100 mls/hr Q12 IVPB Last administered on 22:00; Admin Dose 100 MLS/HR; Start 09/05/17 at 23:00 Vancomycin HCl/ Sodium Chloride (Vancocin/NS) 250 ml @ 83.333 mls/ hr Q72H IVPB ; Start 09/08/17 at 13:00 Heparin Sodium (Porcine) (Heparin (5000 Units/0.5 ml)) 5,000 unit Q8 SC Last administered on 09/07/17 22:04; Admin Dose 5,000 UNIT; Start 09/06/17 at 22: 00 Furosemide (Lasix) 40 mg DAILY IV ; Start 09/08/17 at 09:00 Epoetin Kashif (Epogen (Esrd)) 10,000 units TuThSa@17 SC Last administered on 17:07; Admin Dose 10,000 UNITS; Start 09/07/17 at 17:00 Prednisone (Prednisone) 30 mg DAILY PO ; Start 09/08/17 at 09:00 Amlodipine Besylate (Norvasc) 10 mg DAILY PO ; Start 09/08/17 at 09:00 Insulin Glargine (Lantus) 13 unit DAILY@10 SC ; Start 09/08/17 at 10:00 GIA DUMONT Sep 07, 2017 22:23
--- NOTE | 2017-09-07 23:21 | PN ---
Date/Time of Note Date/Time of Note DATE: 09/07/17 TIME: 23:21 Assessment/Plan Lines/Catheters IV Catheter Type (from [facility]): Saline Lock Reina in Place (from [facility]): Yes Assessment/Plan Chief Complaint/Hosp Course 1. Left lower extremity cellulitis and edema with history of diabetes; No weeping/open areas; minimally improved; CT lower extremity: no abscess -IV antibiotics -Elevate above heart level 2. Pancytopenia with history of unknown reason for methotrexate therapy; resolved, now with leukocytosis; s/p PRBC and plt transfusions -per heme 3. Diabetes -Nutrition medication optimization -Encourage weight loss 4. Hypertension -Nutrition medication optimization -Encourage weight loss 5. BK on Chronic kidney disease: -Judicious fluid management -Avoid nephrotoxic agents 6. Abnormal LFTs of unknown etiology may be secondary to fatty liver -Monitor 7. Hypoalbuminemia with hypocalcemia -Nutritional optimization 8. Pulm edema w ?bilat pna -pulm toilet -abx -resp tx -per pulm 9. CHF: -cont diuretic therapy -supportive Thank you. Patient seen and examined in collaboration with Dr. William Russ. Problems: Subjective 24 Hr Interval Summary Breathing more comfortably. Less sob w exertion. Continues on supplemental O2. No fevers, chills, congested cough, cp, palpitations, walsh, dizziness, n/v/d/ dysuria. Exam/Review of Systems Vital Signs Vitals Vital Signs Date Time Temp Pulse Resp B/P Pulse Ox O2 Delivery O2 Flow Rate FiO2 09/12/17 01:07 87 18 95 Nasal Cannula 3.0 09/12/17 00:00 98.6 139/77 09/10/17 20:13 30 Intake and Output 09/11/17 09/11/17 09/12/17 15:00 23:00 07:00 Intake Total 50 ml 1300 ml Output Total 600 ml Balance 50 ml 700 ml Exam Free Text/Dictation Constitutional: obese, other (Awake), No distress Psych: nl mood/affect, No anxiety Head: atraumatic, normocephalic Eyes: EOMI, PERRL, nl conjunctiva, No icteric ENMT: mucosa pink and dry, nl external ears & nose, nl lips & teeth Neck: non-tender, supple, No jvd Respiratory: diminished, labored breathing w exertion; nc No congested cough, No wheezing Cardiovascular: edema (Left lower extremity edema much improved), regular rate and rhythm Gastrointestinal: non-tender, soft, No rebound or guarding Musculoskeletal: joint tenderness (Left ankle), No nl extremities to inspection Extremities: edema, normal pulses, pitting pedal edema, tenderness, No calf tenderness Neurological: nl mental status, nl strength Skin: rash or lesions (Left lower extremity-discoloration), No diaphoresis, No nl turgor Lymph: nl lymph nodes, nontender Results Result Diagram: 09/11/17 0557 09/11/17 0557 EDMUND KINCAID NP Sep 07, 2017 23:21
[2017-09-08] VITALS (10 sets, daily range): BP systolic 155–180; BP diastolic 70–77; PULSE 80–90; RESP 18–20
[2017-09-08] MEDS: ALBUTEROL/IPRATROPIUM (NEB) 3 ML AMP HHN SCH ×6 (00:57→20:06)
[2017-09-08] MEDS: hydrALAzine 20 MG INJ IV PRN (01:18)
[2017-09-08] MEDS: ACCU-CHEK XX SCH (02:00)
[2017-09-08] MEDS: HEPARIN 5,000 UNIT/0.5 ML VIAL SC SCH ×3 (05:52→22:51)
[2017-09-08] MEDS: INSULIN ASPART [NOVOLOG] 3 ML PEN SC SCH ×4 (07:55→22:51)
[2017-09-08] MEDS: BISOPROLOL 5 MG TAB PO SCH (08:50)
[2017-09-08] MEDS: FUROSEMIDE 40 MG INJ IV SCH (08:50)
[2017-09-08] MEDS: MEROPENEM 500MG/50 ML (PMX) 50 ML IVPB SCH ×2 (08:50→22:29)
[2017-09-08] MEDS: CITRIC ACID/NA CITRATE 30 ML CUP PO SCH ×3 (08:51→22:30)
[2017-09-08] MEDS: AMLODIPINE 10 MG TAB PO SCH (08:51)
[2017-09-08] MEDS: LORATADINE 10 MG TAB PO SCH (08:51)
[2017-09-08] MEDS: LOSARTAN 50 MG TAB PO SCH (08:51)
[2017-09-08] MEDS: DIPHENHYD/MYLANTA/LIDO (PO SYG) PO SCH ×3 (08:52→22:30)
[2017-09-08] MEDS: SILVER SULFADIAZINE 1% 400 GM CR TOP SCH ×2 (08:52→22:31)
[2017-09-08] MEDS ORDERED: predniSONE 10 MG TAB PO SCH (09:00)
[2017-09-08] MEDS ORDERED: POTASSIUM CHLORIDE 20 MEQ POWDER FOR ORAL SOLN PO ONE ×2 (10:00)
[2017-09-08] MEDS: INSULIN GLARGINE [LANtus] 3 ML PEN SC SCH (11:39)
--- NOTE | 2017-09-08 11:48 | CONS ---
Date/Time of Note Date/Time of Note DATE: 09/08/17 TIME: 11:47 Consult Date/Type/Reason Admit Date/Time Aug 24, 2017 at 19:05 Initial Consult Date 08/31/17 Type of Consultation: Pulmonary Ordering Provider: GIA DUMONT Subjective No significant changes. Patient remains stable. Objective Vital Signs Date Time Temp Pulse Resp B/P Pulse Ox O2 Delivery O2 Flow Rate FiO2 09/08/17 11:32 98.2 84 18 174/77 97 09/08/17 08:19 Nasal Cannula 4.0 09/05/17 16:30 100 Intake and Output 09/07/17 09/07/17 09/08/17 15:00 23:00 07:00 Intake Total 950 ml 200 ml Output Total 1000 ml 900 ml Balance -50 ml -700 ml Exam GENERAL: Elderly appearing lady appears comfortable at rest no acute distress VITAL SIGNS: per chart NECK: Supple. No JVD or lymphadenopathy. CARDIAC EXAM: S1, S2. No added sounds or murmurs. CHEST: Diminished air entry bilaterally no rales. ABDOMEN: Soft, nontender. No guarding or rebound. EXTREMITIES: No cyanosis, clubbing or edema. NEUROLOGIC: Generalized weakness. No focal deficits. Results/Medications Result Diagram: 09/08/17 0729 09/08/17 0729 Results 24 hrs Laboratory Tests Test 09/07/17 12:13 09/07/17 17:05 09/07/17 21:19 09/08/17 03:04 Bedside Glucose 237 H 237 H 241 H 150 Test 09/08/17 07:29 09/08/17 07:55 09/08/17 11:33 White Blood Count 29.8 H Red Blood Count 2.63 L Hemoglobin 7.6 L Hematocrit 23.4 L Mean Corpuscular Volume 89.0 Mean Corpuscular Hemoglobin 28.9 L Mean Corpuscular Hemoglobin Concent 32.5 Red Cell Distribution Width 17.5 H Platelet Count 251 # Mean Platelet Volume 11.3 H Neutrophils % Segmented Neutrophils % (Manual) 46 Band Neutrophils % (Manual) 4 Lymphocytes % Lymphocytes % (Manual) 5 L Reactive Lymphocytes % (Manual) 7 H Monocytes % Monocytes % (Manual) 34 H Eosinophils % Basophils % Metamyelocytes % (manual) 3 H Myelocytes % (Manual) 1 H Nucleated Red Blood Cells % 1 H Neutrophils # Neutrophils # (Manual) 14.0 H Band Neutrophils # 1.1 H Absolute Lymphocytes (Manual) 1.4 Lymphocytes # Reactive Lymphocytes # 2.0 H Monocytes # Absolute Monocytes (Manual) 10.1 H Eosinophils # Basophils # Metamyelocytes # 0.8 H Myelocytes # 0.2 H Nucleated Red Blood Cells # Platelet Estimate NORMAL Anisocytosis 1+ Microcytosis 1+ Sodium Level 134 L Potassium Level 2.9 *L Chloride Level 103 Carbon Dioxide Level 25 Anion Gap 9 # Blood Urea Nitrogen 46 H Creatinine 2.63 H Glucose Level 131 Calcium Level 8.3 L Phosphorus Level 4.7 Magnesium Level 2.2 Bedside Glucose 137 213 Medications Current Medications Ondansetron HCl (Zofran Inj) 4 mg Q6H PRN IV NAUSEA AND/OR VOMITING Last administered on 09/04/17 13:47; Admin Dose 4 MG; Start 08/25/17 at 08:00 Morphine Sulfate (morphine) 2 mg Q4H PRN IV PAIN Last administered on 09/01/17 20:06; Admin Dose 2 MG; Start 08/25/17 at 08:00 Bisoprolol Fumarate (Zebeta) 10 mg DAILY PO Last administered on 09/08/17 08: 50; Admin Dose 10 MG; Start 08/25/17 at 09:00 Loratadine (Claritin) 10 mg DAILY PO Last administered on 09/08/17 08:51; Admin Dose 10 MG; Start 08/25/17 at 09:00 Losartan Potassium (Cozaar) 50 mg DAILY PO Last administered on 09/08/17 08: 51; Admin Dose 50 MG; Start 08/25/17 at 09:00 Diagnostic Test (Pha) (Accu-Chek) 1 ea 02 XX Last administered on 09/06/17 02 :00; Admin Dose 1 EA; Start 08/26/17 at 02:00 Miscellaneous Information 1 ea NOTE XX ; Start 08/25/17 at 14:00 Glucose (Glutose) 15 gm Q15M PRN PO DECREASED GLUCOSE; Start 08/25/17 at 14:00 Glucose (Glutose) 22.5 gm Q15M PRN PO DECREASED GLUCOSE; Start 08/25/17 at 14: 00 Dextrose (D50w Syringe) 25 ml Q15M PRN IV DECREASED GLUCOSE Last administered on 09/05/17 12:07; Admin Dose 25 ML; Start 08/25/17 at 14:00 Dextrose (D50w Syringe) 50 ml Q15M PRN IV DECREASED GLUCOSE Last administered on 09/03/17 20:53; Admin Dose 50 ML; Start 08/25/17 at 14:00 Glucagon (Glucagen) 1 mg Q15M PRN IM DECREASED GLUCOSE; Start 08/25/17 at 14: 00 Glucose (Glutose) 15 gm Q15M PRN BUCCAL DECREASED GLUCOSE; Start 08/25/17 at 14:00 Acetaminophen 650 mg 650 mg Q4H PRN PO PAIN AND OR ELEVATED TEMP Last administered on 08/26/17 17:06; Admin Dose 650 MG; Start 08/25/17 at 20:30 Fluconazole (Diflucan 200 Mg/ NS (Pmx)) 100 ml @ 100 mls/hr Q24H IVPB Last administered on 09/07/17 12:14; Admin Dose 100 MLS/HR; Start 08/27/17 at 13: 00 Miscellaneous Medication (Bax Susp) 10 ml TID PO Last administered on 08:52; Admin Dose 10 ML; Start 08/29/17 at 13:00 Citric Acid/ Sodium Citrate 30 ml 30 ml TID PO Last administered on 09/08/17 08:51; Admin Dose 30 ML; Start 08/29/17 at 21:00 Leucovorin Calcium/Dextrose (Leucovorin Calcium Inj/D5W) 50 ml @ 200 mls/hr Q6H IV Last administered on 09/06/17 16:15; Admin Dose 200 MLS/HR; Start at 22:00; Status Future Hold Morphine Sulfate (morphine) 1 mg Q4H PRN IV LESS THAN 5/10 PAIN Last administered on 09/01/17 13:10; Admin Dose 1 MG; Start 08/30/17 at 20:00 Hydralazine HCl (Apresoline) 10 mg Q6H PRN IV ELEVATED SYSTOLIC BP Last administered on 09/08/17 01:18; Admin Dose 10 MG; Start 09/01/17 at 21:30 Silver Sulfadiazine (Thermazene 1% 400 Gm) 1 applic BID TOP Last administered on 09/08/17 08:52; Admin Dose 1 APPLIC; Start 09/04/17 at 14:00 Hydralazine HCl 10 mg 10 mg Q4H PRN IV ELEVATED BLOOD PRESSURE; Start at 01:00 Meropenem/Sodium Chloride 50 ml @ 100 mls/hr Q12 IVPB Last administered on 08:50; Admin Dose 100 MLS/HR; Start 09/05/17 at 23:00 Vancomycin HCl/ Sodium Chloride (Vancocin/NS) 250 ml @ 83.333 mls/ hr Q72H IVPB ; Start 09/08/17 at 13:00 Heparin Sodium (Porcine) (Heparin (5000 Units/0.5 ml)) 5,000 unit Q8 SC Last administered on 09/08/17 05:52; Admin Dose 5,000 UNIT; Start 09/06/17 at 22: 00 Furosemide (Lasix) 40 mg DAILY IV Last administered on 09/08/17 08:50; Admin Dose 40 MG; Start 09/08/17 at 09:00 Epoetin Kashif (Epogen (Esrd)) 10,000 units TuThSa@17 SC Last administered on 17:07; Admin Dose 10,000 UNITS; Start 09/07/17 at 17:00 Prednisone (Prednisone) 30 mg DAILY PO Last administered on 09/08/17 08:51; Admin Dose 30 MG; Start 09/08/17 at 09:00 Amlodipine Besylate (Norvasc) 10 mg DAILY PO Last administered on 09/08/17 08 :51; Admin Dose 10 MG; Start 09/08/17 at 09:00 Insulin Glargine (Lantus) 13 unit DAILY@10 SC ; Start 09/08/17 at 10:00 Assessment/Plan Chief Complaint/Hosp Course IMPRESSION: Hypoxemic respiratory insufficiency in the setting of hypertension, chronic kidney disease and volume overload. Chest x-ray demonstrates worsening pulmonary edema. Ongoing infiltrates RECOMMENDATIONS: 1. Continue antibiotics 2. Consider increasing diuretics 3. Cardiac recommendations 4. Aspiration precautions 5. Decrease FiO2 as tolerated PT evaluation Consider [facility] evaluation Problems: T[facility]EDO [facility], [facility] Sep 08, 2017 11:48
[2017-09-08] MEDS ORDERED: POTASSIUM CHLORIDE (SR) 20 MEQ TAB PO STA (12:20)
--- NOTE | 2017-09-08 12:21 | CONS ---
Date/Time of Note Date/Time of Note DATE: 09/08/17 TIME: 12:21 Assessment/Plan Assessment/Plan Chief Complaint/Hosp Course 61 y/o with 1. acute on-chronic kidney disease with no known baseline could be due to underlying sepsis/meds vs drug induced Cr improved significantly 2.62 from 4'S 2 Underlying acute tubular necrosis, possibly sepsis-induced due to cellulitis of the left lower extremity. 3 Likely underlying diabetic nephropathy, underlying hypertensive nephrosclerosis 4 pancytopenia could be due to sepsis, as well as drug-induced mthx/sulpha 5. Hyponatremia. resolved 6. Non gap Metabolic acidosis likely secondary to renal failure on bictra 7 Nephrotic range proteinuria 8 BLE atherosclerosis 9 SOB likely secondary to pul edema on iv lasix Plan - No labs today, Pt respiratory status improving still on 3 L, UOP 3.4 L - Will decrease Lasix to 40 mg, - Prednisone titrated down to 40 - strict I and O - Concentrate all iv abx - Recommend getting ECHO to evaluate for cardiac function which is pending - Spoke to ID would need iv abx for 3 days and would hold off PICC line as much as possible to preserve future access - Proteinuria wup negative so far HIV, Hep panel, RPR, SPEP/UPEP - Will consider uptitrating Losartan once Cr back to baseline Problems: Consultation Date/Type/Reason Admit Date/Time Aug 24, 2017 at 19:05 Initial Consult Date 08/29/17 Type of Consultation: Pulmonary Referring Provider: GIA DUMONT Exam/Review of Systems Vital Signs Vitals Vital Signs Date Time Temp Pulse Resp B/P Pulse Ox O2 Delivery O2 Flow Rate FiO2 09/08/17 12:04 80 09/08/17 11:32 98.2 18 174/77 97 09/08/17 08:19 Nasal Cannula 4.0 09/05/17 16:30 100 Intake and Output 09/07/17 09/07/17 09/08/17 15:00 23:00 07:00 Intake Total 950 ml 200 ml Output Total 1000 ml 900 ml Balance -50 ml -700 ml Results Result Diagram: 09/08/17 0729 09/08/17 0729 Results 24 hrs Laboratory Tests Test 09/07/17 17:05 09/07/17 21:19 09/08/17 03:04 09/08/17 07:29 Bedside Glucose 237 H 241 H 150 White Blood Count 29.8 H Red Blood Count 2.63 L Hemoglobin 7.6 L Hematocrit 23.4 L Mean Corpuscular Volume 89.0 Mean Corpuscular Hemoglobin 28.9 L Mean Corpuscular Hemoglobin Concent 32.5 Red Cell Distribution Width 17.5 H Platelet Count 251 # Mean Platelet Volume 11.3 H Neutrophils % Segmented Neutrophils % (Manual) 46 Band Neutrophils % (Manual) 4 Lymphocytes % Lymphocytes % (Manual) 5 L Reactive Lymphocytes % (Manual) 7 H Monocytes % Monocytes % (Manual) 34 H Eosinophils % Basophils % Metamyelocytes % (manual) 3 H Myelocytes % (Manual) 1 H Nucleated Red Blood Cells % 1 H Neutrophils # Neutrophils # (Manual) 14.0 H Band Neutrophils # 1.1 H Absolute Lymphocytes (Manual) 1.4 Lymphocytes # Reactive Lymphocytes # 2.0 H Monocytes # Absolute Monocytes (Manual) 10.1 H Eosinophils # Basophils # Metamyelocytes # 0.8 H Myelocytes # 0.2 H Nucleated Red Blood Cells # Platelet Estimate NORMAL Anisocytosis 1+ Microcytosis 1+ Sodium Level 134 L Potassium Level 2.9 *L Chloride Level 103 Carbon Dioxide Level 25 Anion Gap 9 # Blood Urea Nitrogen 46 H Creatinine 2.63 H Glucose Level 131 Calcium Level 8.3 L Phosphorus Level 4.7 Magnesium Level 2.2 Test 09/08/17 07:55 09/08/17 11:33 Bedside Glucose 137 213 Medications Medications Current Medications Ondansetron HCl (Zofran Inj) 4 mg Q6H PRN IV NAUSEA AND/OR VOMITING Last administered on 09/04/17 13:47; Admin Dose 4 MG; Start 08/25/17 at 08:00 Morphine Sulfate (morphine) 2 mg Q4H PRN IV PAIN Last administered on 09/01/17 20:06; Admin Dose 2 MG; Start 08/25/17 at 08:00 Bisoprolol Fumarate (Zebeta) 10 mg DAILY PO Last administered on 09/08/17 08: 50; Admin Dose 10 MG; Start 08/25/17 at 09:00 Loratadine (Claritin) 10 mg DAILY PO Last administered on 09/08/17 08:51; Admin Dose 10 MG; Start 08/25/17 at 09:00 Losartan Potassium (Cozaar) 50 mg DAILY PO Last administered on 09/08/17 08: 51; Admin Dose 50 MG; Start 08/25/17 at 09:00 Diagnostic Test (Pha) (Accu-Chek) 1 ea 02 XX Last administered on 09/06/17 02 :00; Admin Dose 1 EA; Start 08/26/17 at 02:00 Miscellaneous Information 1 ea NOTE XX ; Start 08/25/17 at 14:00 Glucose (Glutose) 15 gm Q15M PRN PO DECREASED GLUCOSE; Start 08/25/17 at 14:00 Glucose (Glutose) 22.5 gm Q15M PRN PO DECREASED GLUCOSE; Start 08/25/17 at 14: 00 Dextrose (D50w Syringe) 25 ml Q15M PRN IV DECREASED GLUCOSE Last administered on 09/05/17 12:07; Admin Dose 25 ML; Start 08/25/17 at 14:00 Dextrose (D50w Syringe) 50 ml Q15M PRN IV DECREASED GLUCOSE Last administered on 09/03/17 20:53; Admin Dose 50 ML; Start 08/25/17 at 14:00 Glucagon (Glucagen) 1 mg Q15M PRN IM DECREASED GLUCOSE; Start 08/25/17 at 14: 00 Glucose (Glutose) 15 gm Q15M PRN BUCCAL DECREASED GLUCOSE; Start 08/25/17 at 14:00 Acetaminophen 650 mg 650 mg Q4H PRN PO PAIN AND OR ELEVATED TEMP Last administered on 08/26/17 17:06; Admin Dose 650 MG; Start 08/25/17 at 20:30 Fluconazole (Diflucan 200 Mg/ NS (Pmx)) 100 ml @ 100 mls/hr Q24H IVPB Last administered on 09/07/17 12:14; Admin Dose 100 MLS/HR; Start 08/27/17 at 13: 00 Miscellaneous Medication (Bax Susp) 10 ml TID PO Last administered on 08:52; Admin Dose 10 ML; Start 08/29/17 at 13:00 Citric Acid/ Sodium Citrate 30 ml 30 ml TID PO Last administered on 09/08/17 08:51; Admin Dose 30 ML; Start 08/29/17 at 21:00 Leucovorin Calcium/Dextrose (Leucovorin Calcium Inj/D5W) 50 ml @ 200 mls/hr Q6H IV Last administered on 09/06/17 16:15; Admin Dose 200 MLS/HR; Start at 22:00; Status Future Hold Morphine Sulfate (morphine) 1 mg Q4H PRN IV LESS THAN 5/10 PAIN Last administered on 09/01/17 13:10; Admin Dose 1 MG; Start 08/30/17 at 20:00 Hydralazine HCl (Apresoline) 10 mg Q6H PRN IV ELEVATED SYSTOLIC BP Last administered on 09/08/17 01:18; Admin Dose 10 MG; Start 09/01/17 at 21:30 Silver Sulfadiazine (Thermazene 1% 400 Gm) 1 applic BID TOP Last administered on 09/08/17 08:52; Admin Dose 1 APPLIC; Start 09/04/17 at 14:00 Hydralazine HCl 10 mg 10 mg Q4H PRN IV ELEVATED BLOOD PRESSURE; Start at 01:00 Meropenem/Sodium Chloride 50 ml @ 100 mls/hr Q12 IVPB Last administered on 08:50; Admin Dose 100 MLS/HR; Start 09/05/17 at 23:00 Vancomycin HCl/ Sodium Chloride (Vancocin/NS) 250 ml @ 83.333 mls/ hr Q72H IVPB ; Start 09/08/17 at 13:00 Heparin Sodium (Porcine) (Heparin (5000 Units/0.5 ml)) 5,000 unit Q8 SC Last administered on 09/08/17 05:52; Admin Dose 5,000 UNIT; Start 09/06/17 at 22: 00 Furosemide (Lasix) 40 mg DAILY IV Last administered on 09/08/17 08:50; Admin Dose 40 MG; Start 09/08/17 at 09:00 Epoetin Kashif (Epogen (Esrd)) 10,000 units TuThSa@17 SC Last administered on 17:07; Admin Dose 10,000 UNITS; Start 09/07/17 at 17:00 Amlodipine Besylate (Norvasc) 10 mg DAILY PO Last administered on 09/08/17 08 :51; Admin Dose 10 MG; Start 09/08/17 at 09:00 Insulin Glargine (Lantus) 13 unit DAILY@10 SC Last administered on 09/08/17 11:39; Admin Dose 13 UNIT; Start 09/08/17 at 10:00 Prednisone (Prednisone) 20 mg DAILY PO ; Start 09/09/17 at 09:00 Hydralazine HCl (Apresoline) 25 mg TID PO ; Start 09/08/17 at 13:00 ARDEN JACKMAN MD Sep 08, 2017 12:21
--- NOTE | 2017-09-08 13:12 | CONS ---
Date/Time of Note Date/Time of Note DATE: 09/08/17 TIME: 13:10 Assessment/Plan Assessment/Plan Additional Assessment/Plan Acute decompensated diastolic congestive heart failure Preserved ejection fraction Mild to moderate aortic valve stenosis Volume overload Sepsis Pneumonia Cellulitis Renal dysfunction -Echocardiogram with preserved ejection fraction, mild to moderate aortic valve stenosis. IVC is dilated but does collapse with inspiration. Continue diuretics as per our nephrology colleagues. Antibiotics as per infectious disease. If blood pressure trend remains elevated, consider increasing dose of hydralazine. Consultation Date/Type/Reason Admit Date/Time Aug 24, 2017 at 19:05 Initial Consult Date 08/31/17 Type of Consultation: cv Referring Provider: GIA DUMONT 24 HR Interval Summary Free Text/Dictation Patient seen and examined Exam/Review of Systems Vital Signs Vitals Vital Signs Date Time Temp Pulse Resp B/P Pulse Ox O2 Delivery O2 Flow Rate FiO2 09/08/17 12:04 80 09/08/17 11:32 98.2 18 174/77 97 09/08/17 08:19 Nasal Cannula 4.0 09/05/17 16:30 100 Intake and Output 09/07/17 09/07/17 09/08/17 15:00 23:00 07:00 Intake Total 950 ml 200 ml Output Total 1000 ml 900 ml Balance -50 ml -700 ml Exam No apparent distress, following commands Constitutional: alert, obese Head: normocephalic Respiratory: other (Coarse breath sounds bilaterally, minimal and expiratory wheezing) Cardiovascular: other (S1-S2 heard), regular rate and rhythm Gastrointestinal: bowel sounds, non-tender, soft Extremities: edema Results Result Diagram: 09/08/17 0729 09/08/17 0729 Results 24 hrs Laboratory Tests Test 09/07/17 17:05 09/07/17 21:19 09/08/17 03:04 09/08/17 07:29 Bedside Glucose 237 H 241 H 150 White Blood Count 29.8 H Red Blood Count 2.63 L Hemoglobin 7.6 L Hematocrit 23.4 L Mean Corpuscular Volume 89.0 Mean Corpuscular Hemoglobin 28.9 L Mean Corpuscular Hemoglobin Concent 32.5 Red Cell Distribution Width 17.5 H Platelet Count 251 # Mean Platelet Volume 11.3 H Neutrophils % Segmented Neutrophils % (Manual) 46 Band Neutrophils % (Manual) 4 Lymphocytes % Lymphocytes % (Manual) 5 L Reactive Lymphocytes % (Manual) 7 H Monocytes % Monocytes % (Manual) 34 H Eosinophils % Basophils % Metamyelocytes % (manual) 3 H Myelocytes % (Manual) 1 H Nucleated Red Blood Cells % 1 H Neutrophils # Neutrophils # (Manual) 14.0 H Band Neutrophils # 1.1 H Absolute Lymphocytes (Manual) 1.4 Lymphocytes # Reactive Lymphocytes # 2.0 H Monocytes # Absolute Monocytes (Manual) 10.1 H Eosinophils # Basophils # Metamyelocytes # 0.8 H Myelocytes # 0.2 H Nucleated Red Blood Cells # Platelet Estimate NORMAL Anisocytosis 1+ Microcytosis 1+ Sodium Level 134 L Potassium Level 2.9 *L Chloride Level 103 Carbon Dioxide Level 25 Anion Gap 9 # Blood Urea Nitrogen 46 H Creatinine 2.63 H Glucose Level 131 Calcium Level 8.3 L Phosphorus Level 4.7 Magnesium Level 2.2 Test 09/08/17 07:55 09/08/17 11:33 Bedside Glucose 137 213 Medications Medications Current Medications Ondansetron HCl (Zofran Inj) 4 mg Q6H PRN IV NAUSEA AND/OR VOMITING Last administered on 09/04/17 13:47; Admin Dose 4 MG; Start 08/25/17 at 08:00 Morphine Sulfate (morphine) 2 mg Q4H PRN IV PAIN Last administered on 09/01/17 20:06; Admin Dose 2 MG; Start 08/25/17 at 08:00 Bisoprolol Fumarate (Zebeta) 10 mg DAILY PO Last administered on 09/08/17 08: 50; Admin Dose 10 MG; Start 08/25/17 at 09:00 Loratadine (Claritin) 10 mg DAILY PO Last administered on 09/08/17 08:51; Admin Dose 10 MG; Start 08/25/17 at 09:00 Losartan Potassium (Cozaar) 50 mg DAILY PO Last administered on 09/08/17 08: 51; Admin Dose 50 MG; Start 08/25/17 at 09:00 Diagnostic Test (Pha) (Accu-Chek) 1 ea 02 XX Last administered on 09/06/17 02 :00; Admin Dose 1 EA; Start 08/26/17 at 02:00 Miscellaneous Information 1 ea NOTE XX ; Start 08/25/17 at 14:00 Glucose (Glutose) 15 gm Q15M PRN PO DECREASED GLUCOSE; Start 08/25/17 at 14:00 Glucose (Glutose) 22.5 gm Q15M PRN PO DECREASED GLUCOSE; Start 08/25/17 at 14: 00 Dextrose (D50w Syringe) 25 ml Q15M PRN IV DECREASED GLUCOSE Last administered on 09/05/17 12:07; Admin Dose 25 ML; Start 08/25/17 at 14:00 Dextrose (D50w Syringe) 50 ml Q15M PRN IV DECREASED GLUCOSE Last administered on 09/03/17 20:53; Admin Dose 50 ML; Start 08/25/17 at 14:00 Glucagon (Glucagen) 1 mg Q15M PRN IM DECREASED GLUCOSE; Start 08/25/17 at 14: 00 Glucose (Glutose) 15 gm Q15M PRN BUCCAL DECREASED GLUCOSE; Start 08/25/17 at 14:00 Acetaminophen 650 mg 650 mg Q4H PRN PO PAIN AND OR ELEVATED TEMP Last administered on 08/26/17 17:06; Admin Dose 650 MG; Start 08/25/17 at 20:30 Fluconazole (Diflucan 200 Mg/ NS (Pmx)) 100 ml @ 100 mls/hr Q24H IVPB Last administered on 09/07/17 12:14; Admin Dose 100 MLS/HR; Start 08/27/17 at 13: 00 Miscellaneous Medication (Bax Susp) 10 ml TID PO Last administered on 08:52; Admin Dose 10 ML; Start 08/29/17 at 13:00 Citric Acid/ Sodium Citrate 30 ml 30 ml TID PO Last administered on 09/08/17 08:51; Admin Dose 30 ML; Start 08/29/17 at 21:00 Leucovorin Calcium/Dextrose (Leucovorin Calcium Inj/D5W) 50 ml @ 200 mls/hr Q6H IV Last administered on 09/06/17 16:15; Admin Dose 200 MLS/HR; Start at 22:00; Status Future Hold Morphine Sulfate (morphine) 1 mg Q4H PRN IV LESS THAN 5/10 PAIN Last administered on 09/01/17 13:10; Admin Dose 1 MG; Start 08/30/17 at 20:00 Hydralazine HCl (Apresoline) 10 mg Q6H PRN IV ELEVATED SYSTOLIC BP Last administered on 09/08/17 01:18; Admin Dose 10 MG; Start 09/01/17 at 21:30 Silver Sulfadiazine (Thermazene 1% 400 Gm) 1 applic BID TOP Last administered on 09/08/17 08:52; Admin Dose 1 APPLIC; Start 09/04/17 at 14:00 Hydralazine HCl 10 mg 10 mg Q4H PRN IV ELEVATED BLOOD PRESSURE; Start at 01:00 Meropenem/Sodium Chloride 50 ml @ 100 mls/hr Q12 IVPB Last administered on 08:50; Admin Dose 100 MLS/HR; Start 09/05/17 at 23:00 Vancomycin HCl/ Sodium Chloride (Vancocin/NS) 250 ml @ 83.333 mls/ hr Q72H IVPB ; Start 09/08/17 at 13:00 Heparin Sodium (Porcine) (Heparin (5000 Units/0.5 ml)) 5,000 unit Q8 SC Last administered on 09/08/17 05:52; Admin Dose 5,000 UNIT; Start 09/06/17 at 22: 00 Furosemide (Lasix) 40 mg DAILY IV Last administered on 09/08/17 08:50; Admin Dose 40 MG; Start 09/08/17 at 09:00 Epoetin Kashif (Epogen (Esrd)) 10,000 units TuThSa@17 SC Last administered on 17:07; Admin Dose 10,000 UNITS; Start 09/07/17 at 17:00 Amlodipine Besylate (Norvasc) 10 mg DAILY PO Last administered on 09/08/17 08 :51; Admin Dose 10 MG; Start 09/08/17 at 09:00 Insulin Glargine (Lantus) 13 unit DAILY@10 SC Last administered on 09/08/17 11:39; Admin Dose 13 UNIT; Start 09/08/17 at 10:00 Prednisone (Prednisone) 20 mg DAILY PO ; Start 09/09/17 at 09:00 Hydralazine HCl (Apresoline) 25 mg TID PO ; Start 09/08/17 at 13:00 Furosemide (Lasix) 40 mg ONCE ONCE IV ; Start 09/08/17 at 14:00; Stop at 14:01 Tj Marie DO Sep 08, 2017 13:12
--- NOTE | 2017-09-08 13:17 | CONS ---
Date/Time of Note Date/Time of Note DATE: 09/08/17 TIME: 13:13 Assessment/Plan Assessment/Plan Chief Complaint/Hosp Course 61 y/o with 1. acute on-chronic kidney disease with no known baseline could be due to underlying sepsis/meds vs drug induced Cr improved significantly 2.62 from 4'S , dont know the baseline on patient. Likely has CKD in past 2 Underlying acute tubular necrosis, possibly sepsis-induced due to cellulitis of the left lower extremity. 3 Likely underlying diabetic nephropathy, underlying hypertensive nephrosclerosis 4 pancytopenia could be due to sepsis, as well as drug-induced mthx/sulpha 5. Hyponatremia. resolved 6. Non gap Metabolic acidosis likely secondary to renal failure on bictra 7 Nephrotic range proteinuria 8 BLE atherosclerosis 9 SOB likely secondary to pul edema on iv lasix 10 Hypokalemia due to diuresis on lasix Plan - Spot dose Lasix 40 mg in afternoon for pul edema - KCL 40 +20 - d/c prednisone per pulmonary - strict I and O - Concentrate all iv abx - Spoke to ID would need iv abx for 3 days and would hold off PICC line as much as possible to preserve future access - Proteinuria wup negative so far HIV, Hep panel, RPR, SPEP/UPEP - Will consider uptitrating Losartan once Cr back to baseline Problems: Consultation Date/Type/Reason Admit Date/Time Aug 24, 2017 at 19:05 Initial Consult Date 08/29/17 Type of Consultation: RENAL Referring Provider: GIA DUMONT 24 HR Interval Summary Free Text/Dictation Net negative 750 ml Still sob overall improving K 2.9 on lasix Exam/Review of Systems Vital Signs Vitals Vital Signs Date Time Temp Pulse Resp B/P Pulse Ox O2 Delivery O2 Flow Rate FiO2 09/08/17 12:04 80 09/08/17 11:32 98.2 18 174/77 97 09/08/17 08:19 Nasal Cannula 4.0 09/05/17 16:30 100 Intake and Output 09/07/17 09/07/17 09/08/17 15:00 23:00 07:00 Intake Total 950 ml 200 ml Output Total 1000 ml 900 ml Balance -50 ml -700 ml Exam en : Flat affect, pt bleeding noted from lips HEENT: Unremarkable Neck: Supple, full ROM Respiratory: few crackels at bases Cardiovascular: nl pulses, regular rate and rhythm Gastrointestinal: Soft, NT Extremities: Warml LLEXT edema/erythema/chronic hyperpigmentation changes distal pre-tibial Results Result Diagram: 09/08/17 0729 09/08/17 0729 Results 24 hrs Laboratory Tests Test 09/07/17 17:05 09/07/17 21:19 09/08/17 03:04 09/08/17 07:29 Bedside Glucose 237 H 241 H 150 White Blood Count 29.8 H Red Blood Count 2.63 L Hemoglobin 7.6 L Hematocrit 23.4 L Mean Corpuscular Volume 89.0 Mean Corpuscular Hemoglobin 28.9 L Mean Corpuscular Hemoglobin Concent 32.5 Red Cell Distribution Width 17.5 H Platelet Count 251 # Mean Platelet Volume 11.3 H Neutrophils % Segmented Neutrophils % (Manual) 46 Band Neutrophils % (Manual) 4 Lymphocytes % Lymphocytes % (Manual) 5 L Reactive Lymphocytes % (Manual) 7 H Monocytes % Monocytes % (Manual) 34 H Eosinophils % Basophils % Metamyelocytes % (manual) 3 H Myelocytes % (Manual) 1 H Nucleated Red Blood Cells % 1 H Neutrophils # Neutrophils # (Manual) 14.0 H Band Neutrophils # 1.1 H Absolute Lymphocytes (Manual) 1.4 Lymphocytes # Reactive Lymphocytes # 2.0 H Monocytes # Absolute Monocytes (Manual) 10.1 H Eosinophils # Basophils # Metamyelocytes # 0.8 H Myelocytes # 0.2 H Nucleated Red Blood Cells # Platelet Estimate NORMAL Anisocytosis 1+ Microcytosis 1+ Sodium Level 134 L Potassium Level 2.9 *L Chloride Level 103 Carbon Dioxide Level 25 Anion Gap 9 # Blood Urea Nitrogen 46 H Creatinine 2.63 H Glucose Level 131 Calcium Level 8.3 L Phosphorus Level 4.7 Magnesium Level 2.2 Test 09/08/17 07:55 09/08/17 11:33 Bedside Glucose 137 213 Medications Medications Current Medications Ondansetron HCl (Zofran Inj) 4 mg Q6H PRN IV NAUSEA AND/OR VOMITING Last administered on 09/04/17 13:47; Admin Dose 4 MG; Start 08/25/17 at 08:00 Morphine Sulfate (morphine) 2 mg Q4H PRN IV 5-10 PAIN Last administered on 09/01/17 20:06; Admin Dose 2 MG; Start 08/25/17 at 08:00 Bisoprolol Fumarate (Zebeta) 10 mg DAILY PO Last administered on 09/08/17 08: 50; Admin Dose 10 MG; Start 08/25/17 at 09:00 Loratadine (Claritin) 10 mg DAILY PO Last administered on 09/08/17 08:51; Admin Dose 10 MG; Start 08/25/17 at 09:00 Losartan Potassium (Cozaar) 50 mg DAILY PO Last administered on 09/08/17 08: 51; Admin Dose 50 MG; Start 08/25/17 at 09:00 Diagnostic Test (Pha) (Accu-Chek) 1 ea 02 XX Last administered on 09/06/17 02 :00; Admin Dose 1 EA; Start 08/26/17 at 02:00 Miscellaneous Information 1 ea NOTE XX ; Start 08/25/17 at 14:00 Glucose (Glutose) 15 gm Q15M PRN PO DECREASED GLUCOSE; Start 08/25/17 at 14:00 Glucose (Glutose) 22.5 gm Q15M PRN PO DECREASED GLUCOSE; Start 08/25/17 at 14: 00 Dextrose (D50w Syringe) 25 ml Q15M PRN IV DECREASED GLUCOSE Last administered on 09/05/17 12:07; Admin Dose 25 ML; Start 08/25/17 at 14:00 Dextrose (D50w Syringe) 50 ml Q15M PRN IV DECREASED GLUCOSE Last administered on 09/03/17 20:53; Admin Dose 50 ML; Start 08/25/17 at 14:00 Glucagon (Glucagen) 1 mg Q15M PRN IM DECREASED GLUCOSE; Start 08/25/17 at 14: 00 Glucose (Glutose) 15 gm Q15M PRN BUCCAL DECREASED GLUCOSE; Start 08/25/17 at 14:00 Acetaminophen 650 mg 650 mg Q4H PRN PO PAIN AND OR ELEVATED TEMP Last administered on 08/26/17 17:06; Admin Dose 650 MG; Start 08/25/17 at 20:30 Fluconazole (Diflucan 200 Mg/ NS (Pmx)) 100 ml @ 100 mls/hr Q24H IVPB Last administered on 09/07/17 12:14; Admin Dose 100 MLS/HR; Start 08/27/17 at 13: 00 Miscellaneous Medication (Bax Susp) 10 ml TID PO Last administered on 08:52; Admin Dose 10 ML; Start 08/29/17 at 13:00 Citric Acid/ Sodium Citrate 30 ml 30 ml TID PO Last administered on 09/08/17 08:51; Admin Dose 30 ML; Start 08/29/17 at 21:00 Leucovorin Calcium/Dextrose (Leucovorin Calcium Inj/D5W) 50 ml @ 200 mls/hr Q6H IV Last administered on 09/06/17 16:15; Admin Dose 200 MLS/HR; Start at 22:00; Status Future Hold Morphine Sulfate (morphine) 1 mg Q4H PRN IV LESS THAN 5/10 PAIN Last administered on 09/01/17 13:10; Admin Dose 1 MG; Start 08/30/17 at 20:00 Hydralazine HCl (Apresoline) 10 mg Q6H PRN IV ELEVATED SYSTOLIC BP Last administered on 09/08/17 01:18; Admin Dose 10 MG; Start 09/01/17 at 21:30 Silver Sulfadiazine (Thermazene 1% 400 Gm) 1 applic BID TOP Last administered on 09/08/17 08:52; Admin Dose 1 APPLIC; Start 09/04/17 at 14:00 Hydralazine HCl 10 mg 10 mg Q4H PRN IV ELEVATED BLOOD PRESSURE; Start at 01:00 Meropenem/Sodium Chloride 50 ml @ 100 mls/hr Q12 IVPB Last administered on 08:50; Admin Dose 100 MLS/HR; Start 09/05/17 at 23:00 Vancomycin HCl/ Sodium Chloride (Vancocin/NS) 250 ml @ 83.333 mls/ hr Q72H IVPB ; Start 09/08/17 at 13:00 Heparin Sodium (Porcine) (Heparin (5000 Units/0.5 ml)) 5,000 unit Q8 SC Last administered on 09/08/17 05:52; Admin Dose 5,000 UNIT; Start 09/06/17 at 22: 00 Furosemide (Lasix) 40 mg DAILY IV Last administered on 09/08/17 08:50; Admin Dose 40 MG; Start 09/08/17 at 09:00 Epoetin Kashif (Epogen (Esrd)) 10,000 units TuThSa@17 SC Last administered on 17:07; Admin Dose 10,000 UNITS; Start 09/07/17 at 17:00 Amlodipine Besylate (Norvasc) 10 mg DAILY PO Last administered on 09/08/17 08 :51; Admin Dose 10 MG; Start 09/08/17 at 09:00 Insulin Glargine (Lantus) 13 unit DAILY@10 SC Last administered on 09/08/17 11:39; Admin Dose 13 UNIT; Start 09/08/17 at 10:00 Prednisone (Prednisone) 20 mg DAILY PO ; Start 09/09/17 at 09:00 Hydralazine HCl (Apresoline) 25 mg TID PO ; Start 09/08/17 at 13:00 Furosemide (Lasix) 40 mg ONCE ONCE IV ; Start 09/08/17 at 14:00; Stop at 14:01 ARDEN JACKMAN MD Sep 08, 2017 13:17
[2017-09-08] MEDS: FLUCONAZOLE 200 MG/NS (PMX) 100 ML IVPB SCH (13:33)
[2017-09-08] MEDS: VANCOMYCIN 1.25 GM in SOD CHLORIDE 0.9% 250 ML IVPB SCH (13:34)
[2017-09-08] MEDS ORDERED: FUROSEMIDE 40 MG INJ IV ONE (14:00)
--- NOTE | 2017-09-08 14:20 | CONS ---
Date/Time of Note Date/Time of Note DATE: 09/08/17 TIME: 14:14 Consult Date/Type/Reason Admit Date/Time Aug 24, 2017 at 19:05 Initial Consult Date 08/29/17 Type of Consultation: id Ordering Provider: GIA DUMONT Objective Vital Signs Date Time Temp Pulse Resp B/P Pulse Ox O2 Delivery O2 Flow Rate FiO2 09/08/17 12:04 80 09/08/17 11:32 98.2 18 174/77 97 09/08/17 08:19 Nasal Cannula 4.0 09/05/17 16:30 100 Intake and Output 09/07/17 09/07/17 09/08/17 15:00 23:00 07:00 Intake Total 950 ml 200 ml Output Total 1000 ml 900 ml Balance -50 ml -700 ml Results/Medications Result Diagram: 09/08/17 0729 09/08/17 0729 Results 24 hrs Laboratory Tests Test 09/07/17 17:05 09/07/17 21:19 09/08/17 03:04 09/08/17 07:29 Bedside Glucose 237 H 241 H 150 White Blood Count 29.8 H Red Blood Count 2.63 L Hemoglobin 7.6 L Hematocrit 23.4 L Mean Corpuscular Volume 89.0 Mean Corpuscular Hemoglobin 28.9 L Mean Corpuscular Hemoglobin Concent 32.5 Red Cell Distribution Width 17.5 H Platelet Count 251 # Mean Platelet Volume 11.3 H Neutrophils % Segmented Neutrophils % (Manual) 46 Band Neutrophils % (Manual) 4 Lymphocytes % Lymphocytes % (Manual) 5 L Reactive Lymphocytes % (Manual) 7 H Monocytes % Monocytes % (Manual) 34 H Eosinophils % Basophils % Metamyelocytes % (manual) 3 H Myelocytes % (Manual) 1 H Nucleated Red Blood Cells % 1 H Neutrophils # Neutrophils # (Manual) 14.0 H Band Neutrophils # 1.1 H Absolute Lymphocytes (Manual) 1.4 Lymphocytes # Reactive Lymphocytes # 2.0 H Monocytes # Absolute Monocytes (Manual) 10.1 H Eosinophils # Basophils # Metamyelocytes # 0.8 H Myelocytes # 0.2 H Nucleated Red Blood Cells # Platelet Estimate NORMAL Anisocytosis 1+ Microcytosis 1+ Sodium Level 134 L Potassium Level 2.9 *L Chloride Level 103 Carbon Dioxide Level 25 Anion Gap 9 # Blood Urea Nitrogen 46 H Creatinine 2.63 H Glucose Level 131 Calcium Level 8.3 L Phosphorus Level 4.7 Magnesium Level 2.2 Test 09/08/17 07:55 09/08/17 11:33 Bedside Glucose 137 213 Medications Current Medications Ondansetron HCl (Zofran Inj) 4 mg Q6H PRN IV NAUSEA AND/OR VOMITING Last administered on 09/04/17 13:47; Admin Dose 4 MG; Start 08/25/17 at 08:00 Morphine Sulfate (morphine) 2 mg Q4H PRN IV PAIN Last administered on 09/01/17 20:06; Admin Dose 2 MG; Start 08/25/17 at 08:00 Bisoprolol Fumarate (Zebeta) 10 mg DAILY PO Last administered on 09/08/17 08: 50; Admin Dose 10 MG; Start 08/25/17 at 09:00 Loratadine (Claritin) 10 mg DAILY PO Last administered on 09/08/17 08:51; Admin Dose 10 MG; Start 08/25/17 at 09:00 Losartan Potassium (Cozaar) 50 mg DAILY PO Last administered on 09/08/17 08: 51; Admin Dose 50 MG; Start 08/25/17 at 09:00 Diagnostic Test (Pha) (Accu-Chek) 1 ea 02 XX Last administered on 09/06/17 02 :00; Admin Dose 1 EA; Start 08/26/17 at 02:00 Miscellaneous Information 1 ea NOTE XX ; Start 08/25/17 at 14:00 Glucose (Glutose) 15 gm Q15M PRN PO DECREASED GLUCOSE; Start 08/25/17 at 14:00 Glucose (Glutose) 22.5 gm Q15M PRN PO DECREASED GLUCOSE; Start 08/25/17 at 14: 00 Dextrose (D50w Syringe) 25 ml Q15M PRN IV DECREASED GLUCOSE Last administered on 09/05/17 12:07; Admin Dose 25 ML; Start 08/25/17 at 14:00 Dextrose (D50w Syringe) 50 ml Q15M PRN IV DECREASED GLUCOSE Last administered on 09/03/17 20:53; Admin Dose 50 ML; Start 08/25/17 at 14:00 Glucagon (Glucagen) 1 mg Q15M PRN IM DECREASED GLUCOSE; Start 08/25/17 at 14: 00 Glucose (Glutose) 15 gm Q15M PRN BUCCAL DECREASED GLUCOSE; Start 08/25/17 at 14:00 Acetaminophen 650 mg 650 mg Q4H PRN PO PAIN AND OR ELEVATED TEMP Last administered on 08/26/17 17:06; Admin Dose 650 MG; Start 08/25/17 at 20:30 Fluconazole (Diflucan 200 Mg/ NS (Pmx)) 100 ml @ 100 mls/hr Q24H IVPB Last administered on 09/08/17 13:33; Admin Dose 100 MLS/HR; Start 08/27/17 at 13: 00 Miscellaneous Medication (Bax Susp) 10 ml TID PO Last administered on 13:29; Admin Dose 10 ML; Start 08/29/17 at 13:00 Citric Acid/ Sodium Citrate 30 ml 30 ml TID PO Last administered on 09/08/17 13:29; Admin Dose 30 ML; Start 08/29/17 at 21:00 Leucovorin Calcium/Dextrose (Leucovorin Calcium Inj/D5W) 50 ml @ 200 mls/hr Q6H IV Last administered on 09/06/17 16:15; Admin Dose 200 MLS/HR; Start at 22:00; Status Future Hold Morphine Sulfate (morphine) 1 mg Q4H PRN IV LESS THAN 5/10 PAIN Last administered on 09/01/17 13:10; Admin Dose 1 MG; Start 08/30/17 at 20:00 Hydralazine HCl (Apresoline) 10 mg Q6H PRN IV ELEVATED SYSTOLIC BP Last administered on 09/08/17 01:18; Admin Dose 10 MG; Start 09/01/17 at 21:30 Silver Sulfadiazine (Thermazene 1% 400 Gm) 1 applic BID TOP Last administered on 09/08/17 08:52; Admin Dose 1 APPLIC; Start 09/04/17 at 14:00 Hydralazine HCl 10 mg 10 mg Q4H PRN IV ELEVATED BLOOD PRESSURE; Start at 01:00 Meropenem/Sodium Chloride 50 ml @ 100 mls/hr Q12 IVPB Last administered on 08:50; Admin Dose 100 MLS/HR; Start 09/05/17 at 23:00 Vancomycin HCl/ Sodium Chloride (Vancocin/NS) 250 ml @ 83.333 mls/ hr Q72H IVPB Last administered on 09/08/17 13:34; Admin Dose 83.333 MLS/HR; Start at 13:00 Heparin Sodium (Porcine) (Heparin (5000 Units/0.5 ml)) 5,000 unit Q8 SC Last administered on 09/08/17 13:31; Admin Dose 5,000 UNIT; Start 09/06/17 at 22: 00 Furosemide (Lasix) 40 mg DAILY IV Last administered on 09/08/17 08:50; Admin Dose 40 MG; Start 09/08/17 at 09:00 Epoetin Kashif (Epogen (Esrd)) 10,000 units TuThSa@17 SC Last administered on 17:07; Admin Dose 10,000 UNITS; Start 09/07/17 at 17:00 Amlodipine Besylate (Norvasc) 10 mg DAILY PO Last administered on 09/08/17 08 :51; Admin Dose 10 MG; Start 09/08/17 at 09:00 Insulin Glargine (Lantus) 13 unit DAILY@10 SC Last administered on 09/08/17 11:39; Admin Dose 13 UNIT; Start 09/08/17 at 10:00 Prednisone (Prednisone) 20 mg DAILY PO ; Start 09/09/17 at 09:00 Hydralazine HCl (Apresoline) 25 mg TID PO Last administered on 09/08/17 13:30 ; Admin Dose 25 MG; Start 09/08/17 at 13:00 Assessment/Plan Chief Complaint/Hosp Course SUBJECTIVE: Remains on 4L nc, no fevers, nad MICROBIOLOGY: Urine and blood cultures negative. ANTIMICROBIALS: 1. Fluconazole. 2. Vanco. 3. Merrem. PHYSICAL EXAMINATION: GENERAL: This is a well-developed, elderly woman who is in no distress. HEENT: Head atraumatic, normocephalic. Sclerae anicteric. Buccal mucosa dry. NECK: Supple. CHEST: Rise symmetrical. Breath sounds diminished to bases, with exp wheezes and prolonged expiratory phase. HEART: S1, S2. ABDOMEN: Soft, bowel tones present. EXTREMITIES: Without cyanosis. Left lower extremity dsg intact. ASSESSMENT: 1. Left lower extremity cellulitis 2. S/p acute resp failure ?PNA ? fluid overload 2. Pancytopenia/severe thrombocytopenia==>resolved. 3. S/p neutropenia . 4. Acute possibly on chronic kidney disease. 5. Hypertension. 6. Diabetes. PLAN: The patient remains stable, continue abx, diuretics, LLE elevation, monitor CXR, f/u hematology/podiatry/renal/pulmonary rec-s [facility] staff Problems: CODY VASQUEZ NP Sep 08, 2017 14:20
--- NOTE | 2017-09-08 17:05 | RADRPT ---
PROCEDURE: XR Chest. CLINICAL INDICATION: Shortness of breath. TECHNIQUE: Single frontal view. COMPARISON: 09/06/2017. FINDINGS: There is right upper lobe air space disease consistent with pneumonia, worse than seen previously. N ew air space disease in the right lung base is consistent with pneumonia. There is improved aeration of the left lower lung zone. The heart is enlarged. There are small bilateral pleural effusions. There is no pneumothorax. IMPRESSION: 1. Worse appearance of the right lung. 2. Improved aeration of the left lower lung zone. 3. No other change from 09/06/2017. RPTAT: QQ .Justice Carrizales MD, MD Date Time Electronically viewed and signed by .Justice Carrizales MD, on 09/08/2017 17:05 .R/
--- NOTE | 2017-09-08 17:30 | PN ---
Date/Time of Note Date/Time of Note DATE: 09/08/17 TIME: 17:27 Assessment/Plan VTE Prophylaxis VTE Prophylaxis Intervention: heparin Lines/Catheters IV Catheter Type (from Nrsg): Saline Lock Urinary Cath still in place: Yes Reason Cath still needed: terminal illness/intractable pain Assessment/Plan Chief Complaint/Hosp Course Patient is a 61-year-old female with a past medical history of hypertension, diabetes, CKD who presented for left lower extremity cellulitis. Assessment/Plan 1. Bilateral Pneumonia - Patient found to have b/l PNA on chest xray - On antibiotics and changed to Meropenem per ID - Pulmonology consultation placed and appreciated recommendations, doubts PNA process - On Neb treatments -tapering steroids #pulmonary edema - likely etiology given elevated BNP and xray -continue IV lasix, careful given Cr -echo noted #acute on chronic diastolic congestive heart failure -continue lasix -cards recs appreciated -echo noted 2. Left lower extremity cellulitis - ID and Surgery on board. Recommendations appreciated - Antibiotic per ID - CT LE showed cellulitis and no evidence of osteomyelitis. Xray LE also performed and no osteomyelitis appreciated. -gen surg/vascular surg do not feel any acute intervention is needed -wraps 3. Mucositis 2/2 methotrexate use- improving - diphen/lido/mal oral solution ordered. Morphine if pain remain intolerable for PO intake - Tolerating soft mech diet 4. Pancytopenia- improving -now leukocytosis, possible due to filgrastim per heme/onc - No transfusions needed today - Hematology on board and recommendations appreciated. - s/p multiple blood transfusions and plt transfusions. #leukocytosis -profound, ? steroids combined with neupogen. -downtrending 5. Neutropenia- resolved - WBC downtrending now <30 and Neupogen no longer on board - Will continue to monitor - Heme on board and recommendations appreciated 6. BK vs BK on CKD - Nephrology on board and recommendations appreciated. - Cr elevated, but lower than admission, likely chronic component - Monitor UOP - HIV negative, KASSY negative 7. Hypokalemia - stable 8. Eosinophilia - normalized after d/c sulfasalazine and mtx 9. Vascular insufficiency - Vascular surgery on board and recommendations appreciated. No current vascular intervention as the patient has not developed any gangrene or ulcers - Will need to follow up as outpatient due to LE atherosclerosis DISPO: Will need to finalize abx per ID, diurese, watch white count, when showing signs of stability, DC to SNF once on stable dose of lasix oral. patient was on methotrexate in [place] in the past for knee problems (after successful charge histotechnologist phone) and has not seen a doctor in the last 6 months, since coming to the [facility]. Problems: Subjective 24 Hr Interval Summary Free Text/Dictation spoke with patient via charge histotechnologist phone. all questions answered Exam/Review of Systems Vital Signs Vitals Vital Signs Date Time Temp Pulse Resp B/P Pulse Ox O2 Delivery O2 Flow Rate FiO2 09/08/17 16:18 80 22 98 Nasal Cannula 4.0 09/08/17 15:18 98.6 166/77 09/05/17 16:30 100 Intake and Output 09/07/17 09/07/17 09/08/17 15:00 23:00 07:00 Intake Total 950 ml 200 ml Output Total 1000 ml 900 ml Balance -50 ml -700 ml Exam Physical exam General: Patient is laying in bed and responds appropriate Mentation: Patient is alert and oriented 4, Head: Normocephalic atraumatic Eyes: EOMI, pupils reactive to light Neck: Supple, nontender, midline Respiratory: coarse to auscultation bilaterally, with wheezing Cardiovascular: regular rate, no obvious murmurs Gastrointestinal: non-tender to palpation, bowel sounds heard. Neurological: Moves all extremities spontaneously Skin: left leg erythematous, mild tenderness. Results Result Diagram: 09/08/17 0729 09/08/17 0729 Results 24 hrs Laboratory Tests Test 09/07/17 21:19 09/08/17 03:04 09/08/17 07:29 09/08/17 07:55 Bedside Glucose 241 H 150 137 White Blood Count 29.8 H Red Blood Count 2.63 L Hemoglobin 7.6 L Hematocrit 23.4 L Mean Corpuscular Volume 89.0 Mean Corpuscular Hemoglobin 28.9 L Mean Corpuscular Hemoglobin Concent 32.5 Red Cell Distribution Width 17.5 H Platelet Count 251 # Mean Platelet Volume 11.3 H Neutrophils % Segmented Neutrophils % (Manual) 46 Band Neutrophils % (Manual) 4 Lymphocytes % Lymphocytes % (Manual) 5 L Reactive Lymphocytes % (Manual) 7 H Monocytes % Monocytes % (Manual) 34 H Eosinophils % Basophils % Metamyelocytes % (manual) 3 H Myelocytes % (Manual) 1 H Nucleated Red Blood Cells % 1 H Neutrophils # Neutrophils # (Manual) 14.0 H Band Neutrophils # 1.1 H Absolute Lymphocytes (Manual) 1.4 Lymphocytes # Reactive Lymphocytes # 2.0 H Monocytes # Absolute Monocytes (Manual) 10.1 H Eosinophils # Basophils # Metamyelocytes # 0.8 H Myelocytes # 0.2 H Nucleated Red Blood Cells # Platelet Estimate NORMAL Anisocytosis 1+ Microcytosis 1+ Sodium Level 134 L Potassium Level 3.3 L Chloride Level 101 Carbon Dioxide Level 23 Anion Gap 13 Blood Urea Nitrogen 45 H Creatinine 2.56 H Glucose Level 108 Calcium Level 8.1 L Phosphorus Level 5.0 H Magnesium Level 2.2 Albumin 2.6 L Test 09/08/17 11:33 Bedside Glucose 213 Medications Medications Current Medications Ondansetron HCl (Zofran Inj) 4 mg Q6H PRN IV NAUSEA AND/OR VOMITING Last administered on 09/04/17 13:47; Admin Dose 4 MG; Start 08/25/17 at 08:00 Morphine Sulfate (morphine) 2 mg Q4H PRN IV PAIN Last administered on 09/01/17 20:06; Admin Dose 2 MG; Start 08/25/17 at 08:00 Bisoprolol Fumarate (Zebeta) 10 mg DAILY PO Last administered on 09/08/17 08: 50; Admin Dose 10 MG; Start 08/25/17 at 09:00 Loratadine (Claritin) 10 mg DAILY PO Last administered on 09/08/17 08:51; Admin Dose 10 MG; Start 08/25/17 at 09:00 Losartan Potassium (Cozaar) 50 mg DAILY PO Last administered on 09/08/17 08: 51; Admin Dose 50 MG; Start 08/25/17 at 09:00 Diagnostic Test (Pha) (Accu-Chek) 1 ea 02 XX Last administered on 09/06/17 02 :00; Admin Dose 1 EA; Start 08/26/17 at 02:00 Miscellaneous Information 1 ea NOTE XX ; Start 08/25/17 at 14:00 Glucose (Glutose) 15 gm Q15M PRN PO DECREASED GLUCOSE; Start 08/25/17 at 14:00 Glucose (Glutose) 22.5 gm Q15M PRN PO DECREASED GLUCOSE; Start 08/25/17 at 14: 00 Dextrose (D50w Syringe) 25 ml Q15M PRN IV DECREASED GLUCOSE Last administered on 09/05/17 12:07; Admin Dose 25 ML; Start 08/25/17 at 14:00 Dextrose (D50w Syringe) 50 ml Q15M PRN IV DECREASED GLUCOSE Last administered on 09/03/17 20:53; Admin Dose 50 ML; Start 08/25/17 at 14:00 Glucagon (Glucagen) 1 mg Q15M PRN IM DECREASED GLUCOSE; Start 08/25/17 at 14: 00 Glucose (Glutose) 15 gm Q15M PRN BUCCAL DECREASED GLUCOSE; Start 08/25/17 at 14:00 Acetaminophen 650 mg 650 mg Q4H PRN PO PAIN AND OR ELEVATED TEMP Last administered on 08/26/17 17:06; Admin Dose 650 MG; Start 08/25/17 at 20:30 Fluconazole (Diflucan 200 Mg/ NS (Pmx)) 100 ml @ 100 mls/hr Q24H IVPB Last administered on 09/08/17 13:33; Admin Dose 100 MLS/HR; Start 08/27/17 at 13: 00 Miscellaneous Medication (Bax Susp) 10 ml TID PO Last administered on 13:29; Admin Dose 10 ML; Start 08/29/17 at 13:00 Citric Acid/ Sodium Citrate 30 ml 30 ml TID PO Last administered on 09/08/17 13:29; Admin Dose 30 ML; Start 08/29/17 at 21:00 Leucovorin Calcium/Dextrose (Leucovorin Calcium Inj/D5W) 50 ml @ 200 mls/hr Q6H IV Last administered on 09/06/17 16:15; Admin Dose 200 MLS/HR; Start at 22:00; Status Future Hold Morphine Sulfate (morphine) 1 mg Q4H PRN IV LESS THAN 5/10 PAIN Last administered on 09/01/17 13:10; Admin Dose 1 MG; Start 08/30/17 at 20:00 Hydralazine HCl (Apresoline) 10 mg Q6H PRN IV ELEVATED SYSTOLIC BP Last administered on 09/08/17 01:18; Admin Dose 10 MG; Start 09/01/17 at 21:30 Silver Sulfadiazine (Thermazene 1% 400 Gm) 1 applic BID TOP Last administered on 09/08/17 08:52; Admin Dose 1 APPLIC; Start 09/04/17 at 14:00 Hydralazine HCl 10 mg 10 mg Q4H PRN IV ELEVATED BLOOD PRESSURE; Start at 01:00 Meropenem/Sodium Chloride 50 ml @ 100 mls/hr Q12 IVPB Last administered on 08:50; Admin Dose 100 MLS/HR; Start 09/05/17 at 23:00 Vancomycin HCl/ Sodium Chloride (Vancocin/NS) 250 ml @ 83.333 mls/ hr Q72H IVPB Last administered on 09/08/17 13:34; Admin Dose 83.333 MLS/HR; Start at 13:00 Heparin Sodium (Porcine) (Heparin (5000 Units/0.5 ml)) 5,000 unit Q8 SC Last administered on 09/08/17 13:31; Admin Dose 5,000 UNIT; Start 09/06/17 at 22: 00 Furosemide (Lasix) 40 mg DAILY IV Last administered on 09/08/17 08:50; Admin Dose 40 MG; Start 09/08/17 at 09:00 Epoetin Kashif (Epogen (Esrd)) 10,000 units TuThSa@17 SC Last administered on 17:07; Admin Dose 10,000 UNITS; Start 09/07/17 at 17:00 Amlodipine Besylate (Norvasc) 10 mg DAILY PO Last administered on 09/08/17 08 :51; Admin Dose 10 MG; Start 09/08/17 at 09:00 Insulin Glargine (Lantus) 13 unit DAILY@10 SC Last administered on 09/08/17 11:39; Admin Dose 13 UNIT; Start 09/08/17 at 10:00 Prednisone (Prednisone) 20 mg DAILY PO ; Start 09/09/17 at 09:00 Hydralazine HCl (Apresoline) 25 mg TID PO Last administered on 09/08/17 13:30 ; Admin Dose 25 MG; Start 09/08/17 at 13:00 GIA DUMONT Sep 08, 2017 17:30
[2017-09-08] MEDS ORDERED: CITRIC ACID/NA CITRATE 15 ML CUP PO SCH (21:00)
--- NOTE | 2017-09-08 22:36 | PN ---
Date/Time of Note Date/Time of Note DATE: 09/08/17 TIME: 22:36 Assessment/Plan Lines/Catheters IV Catheter Type (from [facility]): Saline Lock Reina in Place (from [facility]): Yes Assessment/Plan Chief Complaint/Hosp Course 1. Left lower extremity cellulitis and edema with history of diabetes; No weeping/open areas; minimally improved; CT lower extremity: no abscess -IV antibiotics -Elevate above heart level 2. Pancytopenia with history of unknown reason for methotrexate therapy; resolved, now with leukocytosis; s/p PRBC and plt transfusions -per heme 3. Diabetes -Nutrition medication optimization -Encourage weight loss 4. Hypertension -Nutrition medication optimization -Encourage weight loss 5. BK on Chronic kidney disease: -Judicious fluid management -Avoid nephrotoxic agents 6. Abnormal LFTs of unknown etiology may be secondary to fatty liver -Monitor 7. Hypoalbuminemia with hypocalcemia -Nutritional optimization 8. Pulm edema w ?bilat pna -pulm toilet -abx -resp tx -per pulm 9. CHF: -cont diuretic therapy -supportive Thank you. Patient seen and examined in collaboration with Dr. William Russ. Problems: Subjective 24 Hr Interval Summary Up with PT with some sob. LLE swelling much improved. No fevers, chills, sob, congested cough, cp, palpitations, walsh, dizziness, n/v/d/dysuria. Exam/Review of Systems Vital Signs Vitals Vital Signs Date Time Temp Pulse Resp B/P Pulse Ox O2 Delivery O2 Flow Rate FiO2 09/12/17 01:07 87 18 95 Nasal Cannula 3.0 09/12/17 00:00 98.6 139/77 09/10/17 20:13 30 Intake and Output 09/11/17 09/11/17 09/12/17 15:00 23:00 07:00 Intake Total 50 ml 1300 ml Output Total 600 ml Balance 50 ml 700 ml Exam Free Text/Dictation Constitutional: obese, other (Awake), No distress Psych: nl mood/affect, No anxiety Head: atraumatic, normocephalic Eyes: EOMI, PERRL, nl conjunctiva, No icteric ENMT: mucosa pink and dry, nl external ears & nose, nl lips & teeth Neck: non-tender, supple, No jvd Respiratory: diminished, labored breathing w exertion; nc No congested cough, No wheezing Cardiovascular: edema (Left lower extremity edema much improved), regular rate and rhythm Gastrointestinal: non-tender, soft, No rebound or guarding Musculoskeletal: joint tenderness (Left ankle), No nl extremities to inspection Extremities: edema, normal pulses, pitting pedal edema, tenderness, No calf tenderness Neurological: nl mental status, nl strength Skin: rash or lesions (Left lower extremity-discoloration), skin less flaky/dry No diaphoresis, No nl turgor Lymph: nl lymph nodes, nontender Results Result Diagram: 09/11/17 0557 09/11/17 0557 EDMUND KINCAID NP Sep 08, 2017 22:36
[2017-09-09] VITALS (11 sets, daily range): BP systolic 130–169; BP diastolic 64–104; PULSE 77–90; RESP 17–22
[2017-09-09] MEDS: ALBUTEROL/IPRATROPIUM (NEB) 3 ML AMP HHN SCH ×6 (01:59→20:01)
[2017-09-09] MEDS: ACCU-CHEK XX SCH (02:00)
[2017-09-09] MEDS: HEPARIN 5,000 UNIT/0.5 ML VIAL SC SCH ×3 (05:30→23:57)
[2017-09-09] MEDS: INSULIN ASPART [NOVOLOG] 3 ML PEN SC SCH ×4 (08:12→21:28)
[2017-09-09] MEDS: CITRIC ACID/NA CITRATE 30 ML CUP PO SCH (08:38)
[2017-09-09] MEDS: DIPHENHYD/MYLANTA/LIDO (PO SYG) PO SCH ×4 (08:38→23:53)
[2017-09-09] MEDS: FUROSEMIDE 40 MG INJ IV SCH ×2 (08:39→17:49)
[2017-09-09] MEDS: BISOPROLOL 5 MG TAB PO SCH (08:39)
[2017-09-09] MEDS: LOSARTAN 50 MG TAB PO SCH (08:40)
[2017-09-09] MEDS: AMLODIPINE 10 MG TAB PO SCH (08:40)
[2017-09-09] MEDS: predniSONE 20 MG TAB PO SCH (08:40)
[2017-09-09] MEDS: LORATADINE 10 MG TAB PO SCH (08:40)
[2017-09-09] MEDS: SILVER SULFADIAZINE 1% 400 GM CR TOP SCH ×2 (08:42→23:53)
--- NOTE | 2017-09-09 08:42 | RADRPT ---
PROCEDURE: XR Chest. CLINICAL INDICATION: Shortness of breath. TECHNIQUE: Single frontal view. COMPARISON: 09/08/2017. FINDINGS: Air space disease in the right upper lobe is unchanged. Air space disease in the left mid and lower lung zones is worse. The heart is enlarged. There are small bilateral pleural effusions. There is no pneumothorax. IMPRESSION: 1. Worse appearance of the left lung. 2. No other change from 09/08/2017. RPTAT: QQ .Justice Carrizales MD, Date Time Electronically viewed and signed by .Justice Carrizales MD, on 09/09/2017 08:29 .R/
[2017-09-09] MEDS: MEROPENEM 500MG/50 ML (PMX) 50 ML IVPB SCH ×2 (08:43→21:07)
[2017-09-09] MEDS ORDERED: CITRIC ACID/SODIUM CITRATE 15 ML CUP PO SCH (09:00)
[2017-09-09] MEDS ORDERED: predniSONE 10 MG TAB PO SCH (09:00)
[2017-09-09] MEDS ORDERED: POTASSIUM CHLORIDE (SR) 20 MEQ TAB PO STA (10:08)
--- NOTE | 2017-09-09 10:10 | CONS ---
Date/Time of Note Date/Time of Note DATE: 09/09/17 TIME: 10:10 Assessment/Plan Assessment/Plan Chief Complaint/Hosp Course 61 y/o with 1. acute on-chronic kidney disease with no known baseline could be due to underlying sepsis/meds vs drug induced Cr improved significantly 2.62 from 4'S , dont know the baseline on patient. Likely has CKD in past 2 Underlying acute tubular necrosis, possibly sepsis-induced due to cellulitis of the left lower extremity. 3 Likely underlying diabetic nephropathy, underlying hypertensive nephrosclerosis 4 pancytopenia could be due to sepsis, as well as drug-induced mthx/sulpha 5. Hyponatremia. resolved 6. Non gap Metabolic acidosis likely secondary to renal failure on bictra 7 Nephrotic range proteinuria 8 BLE atherosclerosis 9 SOB likely secondary to pul edema on iv lasix 10 Hypokalemia due to diuresis on lasix Plan - Spot dose Lasix 40 mg in afternoon for pul edema - KCL 40 +20 - d/c prednisone per pulmonary - strict I and O - Concentrate all iv abx - Spoke to ID would need iv abx for 3 days and would hold off PICC line as much as possible to preserve future access - Proteinuria wup negative so far HIV, Hep panel, RPR, SPEP/UPEP - Will consider uptitrating Losartan once Cr back to baseline Problems: Consultation Date/Type/Reason Admit Date/Time Aug 24, 2017 at 19:05 Initial Consult Date 08/29/17 Type of Consultation: Renal Referring Provider: GIA DUMONT Exam/Review of Systems Vital Signs Vitals Vital Signs Date Time Temp Pulse Resp B/P Pulse Ox O2 Delivery O2 Flow Rate FiO2 09/09/17 08:09 87 09/09/17 07:29 Nasal Cannula 3.0 09/09/17 07:24 98.2 17 139/71 98 09/05/17 16:30 100 Intake and Output 09/08/17 09/08/17 09/09/17 15:00 23:00 07:00 Intake Total 1000 ml 200 ml Output Total 1000 ml 1700 ml Balance 0 ml -1500 ml Results Result Diagram: 09/09/17 0556 09/09/17 0556 Results 24 hrs Laboratory Tests Test 09/08/17 11:33 09/08/17 17:56 09/08/17 22:32 09/09/17 03:06 Bedside Glucose 213 328 H 283 H 188 Test 09/09/17 05:56 09/09/17 08:06 White Blood Count 28.8 H Red Blood Count 2.75 L Hemoglobin 8.2 L Hematocrit 24.4 L Mean Corpuscular Volume 88.7 Mean Corpuscular Hemoglobin 29.8 Mean Corpuscular Hemoglobin Concent 33.6 Red Cell Distribution Width 17.3 H Platelet Count 332 # Mean Platelet Volume 11.1 H Neutrophils % Segmented Neutrophils % (Manual) 50 Band Neutrophils % (Manual) 12 H Lymphocytes % Lymphocytes % (Manual) 8 L Reactive Lymphocytes % (Manual) 5 H Monocytes % Monocytes % (Manual) 20 H Eosinophils % Basophils % Nucleated Red Blood Cells % 1.5 H Neutrophils # Neutrophils # (Manual) 15.4 H Band Neutrophils # 3.4 H Absolute Lymphocytes (Manual) 2.3 Lymphocytes # Reactive Lymphocytes # 1.4 H Monocytes # Absolute Monocytes (Manual) 5.7 H Eosinophils # Basophils # Nucleated Red Blood Cells # Platelet Estimate NORMAL Giant Platelets 3 H Anisocytosis 1+ Microcytosis 1+ Sodium Level 138 Potassium Level 3.3 L Chloride Level 101 Carbon Dioxide Level 26 Anion Gap 14 Blood Urea Nitrogen 47 H Creatinine 2.56 H Glucose Level 171 Calcium Level 8.1 L Phosphorus Level 4.1 Magnesium Level 2.3 Bedside Glucose 171 Medications Medications Current Medications Ondansetron HCl (Zofran Inj) 4 mg Q6H PRN IV NAUSEA AND/OR VOMITING Last administered on 09/04/17 13:47; Admin Dose 4 MG; Start 08/25/17 at 08:00 Morphine Sulfate (morphine) 2 mg Q4H PRN IV PAIN Last administered on 09/01/17 20:06; Admin Dose 2 MG; Start 08/25/17 at 08:00 Bisoprolol Fumarate (Zebeta) 10 mg DAILY PO Last administered on 09/09/17 08: 39; Admin Dose 10 MG; Start 08/25/17 at 09:00 Loratadine (Claritin) 10 mg DAILY PO Last administered on 09/09/17 08:40; Admin Dose 10 MG; Start 08/25/17 at 09:00 Losartan Potassium (Cozaar) 50 mg DAILY PO Last administered on 09/09/17 08: 40; Admin Dose 50 MG; Start 08/25/17 at 09:00 Diagnostic Test (Pha) (Accu-Chek) 1 ea 02 XX Last administered on 09/06/17 02 :00; Admin Dose 1 EA; Start 08/26/17 at 02:00 Miscellaneous Information 1 ea NOTE XX ; Start 08/25/17 at 14:00 Glucose (Glutose) 15 gm Q15M PRN PO DECREASED GLUCOSE; Start 08/25/17 at 14:00 Glucose (Glutose) 22.5 gm Q15M PRN PO DECREASED GLUCOSE; Start 08/25/17 at 14: 00 Dextrose (D50w Syringe) 25 ml Q15M PRN IV DECREASED GLUCOSE Last administered on 09/05/17 12:07; Admin Dose 25 ML; Start 08/25/17 at 14:00 Dextrose (D50w Syringe) 50 ml Q15M PRN IV DECREASED GLUCOSE Last administered on 09/03/17 20:53; Admin Dose 50 ML; Start 08/25/17 at 14:00 Glucagon (Glucagen) 1 mg Q15M PRN IM DECREASED GLUCOSE; Start 08/25/17 at 14: 00 Glucose (Glutose) 15 gm Q15M PRN BUCCAL DECREASED GLUCOSE; Start 08/25/17 at 14:00 Acetaminophen 650 mg 650 mg Q4H PRN PO PAIN AND OR ELEVATED TEMP Last administered on 08/26/17 17:06; Admin Dose 650 MG; Start 08/25/17 at 20:30 Fluconazole (Diflucan 200 Mg/ NS (Pmx)) 100 ml @ 100 mls/hr Q24H IVPB Last administered on 09/08/17 13:33; Admin Dose 100 MLS/HR; Start 08/27/17 at 13: 00 Miscellaneous Medication 10 ml 10 ml TID PO Last administered on 09/09/17 08: 38; Admin Dose 10 ML; Start 08/29/17 at 13:00 Leucovorin Calcium/Dextrose (Leucovorin Calcium Inj/D5W) 50 ml @ 200 mls/hr Q6H IV Last administered on 09/06/17 16:15; Admin Dose 200 MLS/HR; Start at 22:00; Status Future Hold Morphine Sulfate (morphine) 1 mg Q4H PRN IV LESS THAN 5/10 PAIN Last administered on 09/01/17 13:10; Admin Dose 1 MG; Start 08/30/17 at 20:00 Hydralazine HCl (Apresoline) 10 mg Q6H PRN IV ELEVATED SYSTOLIC BP Last administered on 09/08/17 01:18; Admin Dose 10 MG; Start 09/01/17 at 21:30 Silver Sulfadiazine (Thermazene 1% 400 Gm) 1 applic BID TOP Last administered on 09/09/17 08:42; Admin Dose 1 APPLIC; Start 09/04/17 at 14:00 Hydralazine HCl 10 mg 10 mg Q4H PRN IV ELEVATED BLOOD PRESSURE; Start at 01:00 Meropenem/Sodium Chloride 50 ml @ 100 mls/hr Q12 IVPB Last administered on 08:43; Admin Dose 100 MLS/HR; Start 09/05/17 at 23:00 Vancomycin HCl/ Sodium Chloride (Vancocin/NS) 250 ml @ 83.333 mls/ hr Q72H IVPB Last administered on 09/08/17 13:34; Admin Dose 83.333 MLS/HR; Start at 13:00 Heparin Sodium (Porcine) (Heparin (5000 Units/0.5 ml)) 5,000 unit Q8 SC Last administered on 09/09/17 05:30; Admin Dose 5,000 UNIT; Start 09/06/17 at 22: 00 Epoetin Kashif (Epogen (Esrd)) 10,000 units TuThSa@17 SC Last administered on 17:07; Admin Dose 10,000 UNITS; Start 09/07/17 at 17:00 Amlodipine Besylate (Norvasc) 10 mg DAILY PO Last administered on 09/09/17 08 :40; Admin Dose 10 MG; Start 09/08/17 at 09:00 Insulin Glargine (Lantus) 13 unit DAILY@10 SC Last administered on 09/08/17 11:39; Admin Dose 13 UNIT; Start 09/08/17 at 10:00 Prednisone (Prednisone) 20 mg DAILY PO Last administered on 09/09/17 08:40; Admin Dose 20 MG; Start 09/09/17 at 09:00 Hydralazine HCl (Apresoline) 25 mg TID PO Last administered on 09/09/17 08:40 ; Admin Dose 25 MG; Start 09/08/17 at 13:00 Citric Acid/ Sodium Citrate (Bicitra) 30 ml TID PO ; Start 09/09/17 at 09:00 Furosemide (Lasix) 40 mg BID IV ; Start 09/09/17 at 21:00; Status ARDEN DA SILVA MD Sep 09, 2017 10:10
--- NOTE | 2017-09-09 10:23 | CONS ---
Date/Time of Note Date/Time of Note DATE: 09/09/17 TIME: 10:19 Assessment/Plan Assessment/Plan Chief Complaint/Hosp Course 61 y/o with 1. acute on-chronic kidney disease with no known baseline could be due to underlying sepsis/meds vs drug induced Cr improved significantly 2.62>2.5 from 4'S, dont know the baseline on patient. Likely has CKD in past 2 Underlying acute tubular necrosis, possibly sepsis-induced due to cellulitis of the left lower extremity. 3 Likely underlying diabetic nephropathy, underlying hypertensive nephrosclerosis 4 pancytopenia could be due to sepsis, as well as drug-induced mthx/sulpha 5. Hyponatremia. resolved 6. Non gap Metabolic acidosis likely secondary to renal failure on bictra 7 Nephrotic range proteinuria 8 BLE atherosclerosis 9 SOB likely secondary to pul edema on iv lasix however even though pt diuresing, infiltrates worsening, ? fungal pneumonia immunosuppressed? pulmonary fibrosis from methtrexate toxicity ? 10 Hypokalemia due to diuresis on lasix Plan - Increase Lasix to 40 bid - KCL - d/c bictra as bicarb 26 - consider widening coverage for fungal pneumonia - CT chest per pulmonary - Sputum cx - Bronch ?? - Taper prednsione - strict I and O - Concentrate all iv abx - Proteinuria wup negative so far HIV, Hep panel, RPR, SPEP/UPEP - Will consider uptitrating Losartan once Cr back to baseline Problems: Consultation Date/Type/Reason Admit Date/Time Aug 24, 2017 at 19:05 Initial Consult Date 08/29/17 Type of Consultation: Renal Referring Provider: GIA DUMONT 24 HR Interval Summary Free Text/Dictation Still sob, wheezing UOP was 1900 yesterday, net negative 750 ml Exam/Review of Systems Vital Signs Vitals Vital Signs Date Time Temp Pulse Resp B/P Pulse Ox O2 Delivery O2 Flow Rate FiO2 09/09/17 08:09 87 09/09/17 07:29 Nasal Cannula 3.0 09/09/17 07:24 98.2 17 139/71 98 09/05/17 16:30 100 Intake and Output 09/08/17 09/08/17 09/09/17 15:00 23:00 07:00 Intake Total 1000 ml 200 ml Output Total 1000 ml 1700 ml Balance 0 ml -1500 ml Exam Gen : Flat affect, pt bleeding noted from lips HEENT: Unremarkable Neck: Supple, full ROM Respiratory: few crackels at bases/ rhonchi present Cardiovascular: nl pulses, regular rate and rhythm Gastrointestinal: Soft, NT Extremities: Warml LLEXT edema/erythema/chronic hyperpigmentation changes distal pre-tibial Results Result Diagram: 09/09/17 0556 09/09/17 0556 Results 24 hrs Laboratory Tests Test 09/08/17 11:33 09/08/17 17:56 09/08/17 22:32 09/09/17 03:06 Bedside Glucose 213 328 H 283 H 188 Test 09/09/17 05:56 09/09/17 08:06 White Blood Count 28.8 H Red Blood Count 2.75 L Hemoglobin 8.2 L Hematocrit 24.4 L Mean Corpuscular Volume 88.7 Mean Corpuscular Hemoglobin 29.8 Mean Corpuscular Hemoglobin Concent 33.6 Red Cell Distribution Width 17.3 H Platelet Count 332 # Mean Platelet Volume 11.1 H Neutrophils % Segmented Neutrophils % (Manual) 50 Band Neutrophils % (Manual) 12 H Lymphocytes % Lymphocytes % (Manual) 8 L Reactive Lymphocytes % (Manual) 5 H Monocytes % Monocytes % (Manual) 20 H Eosinophils % Basophils % Nucleated Red Blood Cells % 1.5 H Neutrophils # Neutrophils # (Manual) 15.4 H Band Neutrophils # 3.4 H Absolute Lymphocytes (Manual) 2.3 Lymphocytes # Reactive Lymphocytes # 1.4 H Monocytes # Absolute Monocytes (Manual) 5.7 H Eosinophils # Basophils # Nucleated Red Blood Cells # Platelet Estimate NORMAL Giant Platelets 3 H Anisocytosis 1+ Microcytosis 1+ Sodium Level 138 Potassium Level 3.3 L Chloride Level 101 Carbon Dioxide Level 26 Anion Gap 14 Blood Urea Nitrogen 47 H Creatinine 2.56 H Glucose Level 171 Calcium Level 8.1 L Phosphorus Level 4.1 Magnesium Level 2.3 Bedside Glucose 171 Medications Medications Current Medications Ondansetron HCl (Zofran Inj) 4 mg Q6H PRN IV NAUSEA AND/OR VOMITING Last administered on 09/04/17 13:47; Admin Dose 4 MG; Start 08/25/17 at 08:00 Morphine Sulfate (morphine) 2 mg Q4H PRN IV 5-08/24 PAIN Last administered on 09/01/17 20:06; Admin Dose 2 MG; Start 08/25/17 at 08:00 Bisoprolol Fumarate (Zebeta) 10 mg DAILY PO Last administered on 09/09/17 08: 39; Admin Dose 10 MG; Start 08/25/17 at 09:00 Loratadine (Claritin) 10 mg DAILY PO Last administered on 09/09/17 08:40; Admin Dose 10 MG; Start 08/25/17 at 09:00 Losartan Potassium (Cozaar) 50 mg DAILY PO Last administered on 09/09/17 08: 40; Admin Dose 50 MG; Start 08/25/17 at 09:00 Diagnostic Test (Pha) (Accu-Chek) 1 ea 02 XX Last administered on 09/06/17 02 :00; Admin Dose 1 EA; Start 08/26/17 at 02:00 Miscellaneous Information 1 ea NOTE XX ; Start 08/25/17 at 14:00 Glucose (Glutose) 15 gm Q15M PRN PO DECREASED GLUCOSE; Start 08/25/17 at 14:00 Glucose (Glutose) 22.5 gm Q15M PRN PO DECREASED GLUCOSE; Start 08/25/17 at 14: 00 Dextrose (D50w Syringe) 25 ml Q15M PRN IV DECREASED GLUCOSE Last administered on 09/05/17 12:07; Admin Dose 25 ML; Start 08/25/17 at 14:00 Dextrose (D50w Syringe) 50 ml Q15M PRN IV DECREASED GLUCOSE Last administered on 09/03/17 20:53; Admin Dose 50 ML; Start 08/25/17 at 14:00 Glucagon (Glucagen) 1 mg Q15M PRN IM DECREASED GLUCOSE; Start 08/25/17 at 14: 00 Glucose (Glutose) 15 gm Q15M PRN BUCCAL DECREASED GLUCOSE; Start 08/25/17 at 14:00 Acetaminophen 650 mg 650 mg Q4H PRN PO PAIN AND OR ELEVATED TEMP Last administered on 08/26/17 17:06; Admin Dose 650 MG; Start 08/25/17 at 20:30 Fluconazole (Diflucan 200 Mg/ NS (Pmx)) 100 ml @ 100 mls/hr Q24H IVPB Last administered on 09/08/17 13:33; Admin Dose 100 MLS/HR; Start 08/27/17 at 13: 00 Miscellaneous Medication 10 ml 10 ml TID PO Last administered on 09/09/17 08: 38; Admin Dose 10 ML; Start 08/29/17 at 13:00 Leucovorin Calcium/Dextrose (Leucovorin Calcium Inj/D5W) 50 ml @ 200 mls/hr Q6H IV Last administered on 09/06/17 16:15; Admin Dose 200 MLS/HR; Start at 22:00; Status Future Hold Morphine Sulfate (morphine) 1 mg Q4H PRN IV LESS THAN 5/10 PAIN Last administered on 09/01/17 13:10; Admin Dose 1 MG; Start 08/30/17 at 20:00 Hydralazine HCl (Apresoline) 10 mg Q6H PRN IV ELEVATED SYSTOLIC BP Last administered on 09/08/17 01:18; Admin Dose 10 MG; Start 09/01/17 at 21:30 Silver Sulfadiazine (Thermazene 1% 400 Gm) 1 applic BID TOP Last administered on 09/09/17 08:42; Admin Dose 1 APPLIC; Start 09/04/17 at 14:00 Hydralazine HCl 10 mg 10 mg Q4H PRN IV ELEVATED BLOOD PRESSURE; Start at 01:00 Meropenem/Sodium Chloride 50 ml @ 100 mls/hr Q12 IVPB Last administered on 08:43; Admin Dose 100 MLS/HR; Start 09/05/17 at 23:00 Vancomycin HCl/ Sodium Chloride (Vancocin/NS) 250 ml @ 83.333 mls/ hr Q72H IVPB Last administered on 09/08/17 13:34; Admin Dose 83.333 MLS/HR; Start at 13:00 Heparin Sodium (Porcine) (Heparin (5000 Units/0.5 ml)) 5,000 unit Q8 SC Last administered on 09/09/17 05:30; Admin Dose 5,000 UNIT; Start 09/06/17 at 22: 00 Epoetin Kashif (Epogen (Esrd)) 10,000 units TuThSa@17 SC Last administered on 17:07; Admin Dose 10,000 UNITS; Start 09/07/17 at 17:00 Amlodipine Besylate (Norvasc) 10 mg DAILY PO Last administered on 09/09/17 08 :40; Admin Dose 10 MG; Start 09/08/17 at 09:00 Insulin Glargine (Lantus) 13 unit DAILY@10 SC Last administered on 09/08/17 11:39; Admin Dose 13 UNIT; Start 09/08/17 at 10:00 Prednisone (Prednisone) 20 mg DAILY PO Last administered on 09/09/17 08:40; Admin Dose 20 MG; Start 09/09/17 at 09:00 Hydralazine HCl (Apresoline) 25 mg TID PO Last administered on 09/09/17 08:40 ; Admin Dose 25 MG; Start 09/08/17 at 13:00 ARDEN JACKMAN MD Sep 09, 2017 10:23
[2017-09-09] MEDS: INSULIN GLARGINE [LANtus] 3 ML PEN SC SCH (11:52)
--- NOTE | 2017-09-09 12:19 | CONS ---
Date/Time of Note Date/Time of Note DATE: 09/09/17 TIME: 12:18 Consult Date/Type/Reason Admit Date/Time Aug 24, 2017 at 19:05 Initial Consult Date 08/31/17 Type of Consultation: Pulmonary Ordering Provider: GIA DUMONT Subjective Significant changes clinically. Remains stable. Objective Vital Signs Date Time Temp Pulse Resp B/P Pulse Ox O2 Delivery O2 Flow Rate FiO2 09/09/17 12:04 77 09/09/17 11:30 98.2 19 130/74 99 09/09/17 10:46 4.0 36 09/09/17 10:46 Nasal Cannula Intake and Output 09/08/17 09/08/17 09/09/17 15:00 23:00 07:00 Intake Total 1000 ml 200 ml Output Total 1000 ml 1700 ml Balance 0 ml -1500 ml Exam GENERAL: The appearing lady comfortable at rest no acute distress VITAL SIGNS: per chart NECK: Supple. No JVD or lymphadenopathy. CARDIAC EXAM: S1, S2. No added sounds or murmurs. CHEST: clear bilaterally, No added sounds, rales or wheezes ABDOMEN: Soft, nontender. No guarding or rebound. EXTREMITIES: No cyanosis, clubbing or edema. NEUROLOGIC: Generalized weakness. No focal deficits. Results/Medications Result Diagram: 09/09/17 0556 09/09/17 0556 Results 24 hrs Laboratory Tests Test 09/08/17 17:56 09/08/17 22:32 09/09/17 03:06 09/09/17 05:56 Bedside Glucose 328 H 283 H 188 White Blood Count 28.8 H Red Blood Count 2.75 L Hemoglobin 8.2 L Hematocrit 24.4 L Mean Corpuscular Volume 88.7 Mean Corpuscular Hemoglobin 29.8 Mean Corpuscular Hemoglobin Concent 33.6 Red Cell Distribution Width 17.3 H Platelet Count 332 # Mean Platelet Volume 11.1 H Neutrophils % Segmented Neutrophils % (Manual) 50 Band Neutrophils % (Manual) 12 H Lymphocytes % Lymphocytes % (Manual) 8 L Reactive Lymphocytes % (Manual) 5 H Monocytes % Monocytes % (Manual) 20 H Eosinophils % Basophils % Nucleated Red Blood Cells % 1.5 H Neutrophils # Neutrophils # (Manual) 15.4 H Band Neutrophils # 3.4 H Absolute Lymphocytes (Manual) 2.3 Lymphocytes # Reactive Lymphocytes # 1.4 H Monocytes # Absolute Monocytes (Manual) 5.7 H Eosinophils # Basophils # Nucleated Red Blood Cells # Platelet Estimate NORMAL Giant Platelets 3 H Anisocytosis 1+ Microcytosis 1+ Sodium Level 138 Potassium Level 3.3 L Chloride Level 101 Carbon Dioxide Level 26 Anion Gap 14 Blood Urea Nitrogen 47 H Creatinine 2.56 H Glucose Level 171 Calcium Level 8.1 L Phosphorus Level 4.1 Magnesium Level 2.3 Test 09/09/17 08:06 09/09/17 11:45 Bedside Glucose 171 225 H Medications Current Medications Ondansetron HCl (Zofran Inj) 4 mg Q6H PRN IV NAUSEA AND/OR VOMITING Last administered on 09/04/17 13:47; Admin Dose 4 MG; Start 08/25/17 at 08:00 Morphine Sulfate (morphine) 2 mg Q4H PRN IV PAIN Last administered on 09/01/17 20:06; Admin Dose 2 MG; Start 08/25/17 at 08:00 Bisoprolol Fumarate (Zebeta) 10 mg DAILY PO Last administered on 09/09/17 08: 39; Admin Dose 10 MG; Start 08/25/17 at 09:00 Loratadine (Claritin) 10 mg DAILY PO Last administered on 09/09/17 08:40; Admin Dose 10 MG; Start 08/25/17 at 09:00 Losartan Potassium (Cozaar) 50 mg DAILY PO Last administered on 09/09/17 08: 40; Admin Dose 50 MG; Start 08/25/17 at 09:00 Diagnostic Test (Pha) (Accu-Chek) 1 ea 02 XX Last administered on 09/06/17 02 :00; Admin Dose 1 EA; Start 08/26/17 at 02:00 Miscellaneous Information 1 ea NOTE XX ; Start 08/25/17 at 14:00 Glucose (Glutose) 15 gm Q15M PRN PO DECREASED GLUCOSE; Start 08/25/17 at 14:00 Glucose (Glutose) 22.5 gm Q15M PRN PO DECREASED GLUCOSE; Start 08/25/17 at 14: 00 Dextrose (D50w Syringe) 25 ml Q15M PRN IV DECREASED GLUCOSE Last administered on 09/05/17 12:07; Admin Dose 25 ML; Start 08/25/17 at 14:00 Dextrose (D50w Syringe) 50 ml Q15M PRN IV DECREASED GLUCOSE Last administered on 09/03/17 20:53; Admin Dose 50 ML; Start 08/25/17 at 14:00 Glucagon (Glucagen) 1 mg Q15M PRN IM DECREASED GLUCOSE; Start 08/25/17 at 14: 00 Glucose (Glutose) 15 gm Q15M PRN BUCCAL DECREASED GLUCOSE; Start 08/25/17 at 14:00 Acetaminophen 650 mg 650 mg Q4H PRN PO PAIN AND OR ELEVATED TEMP Last administered on 08/26/17 17:06; Admin Dose 650 MG; Start 08/25/17 at 20:30 Fluconazole (Diflucan 200 Mg/ NS (Pmx)) 100 ml @ 100 mls/hr Q24H IVPB Last administered on 09/08/17 13:33; Admin Dose 100 MLS/HR; Start 08/27/17 at 13: 00 Miscellaneous Medication 10 ml 10 ml TID PO Last administered on 09/09/17 08: 38; Admin Dose 10 ML; Start 08/29/17 at 13:00 Leucovorin Calcium/Dextrose (Leucovorin Calcium Inj/D5W) 50 ml @ 200 mls/hr Q6H IV Last administered on 09/06/17 16:15; Admin Dose 200 MLS/HR; Start at 22:00; Status Future Hold Morphine Sulfate (morphine) 1 mg Q4H PRN IV LESS THAN 5/10 PAIN Last administered on 09/01/17 13:10; Admin Dose 1 MG; Start 08/30/17 at 20:00 Hydralazine HCl (Apresoline) 10 mg Q6H PRN IV ELEVATED SYSTOLIC BP Last administered on 09/08/17 01:18; Admin Dose 10 MG; Start 09/01/17 at 21:30 Silver Sulfadiazine (Thermazene 1% 400 Gm) 1 applic BID TOP Last administered on 09/09/17 08:42; Admin Dose 1 APPLIC; Start 09/04/17 at 14:00 Hydralazine HCl 10 mg 10 mg Q4H PRN IV ELEVATED BLOOD PRESSURE; Start at 01:00 Meropenem/Sodium Chloride 50 ml @ 100 mls/hr Q12 IVPB Last administered on 08:43; Admin Dose 100 MLS/HR; Start 09/05/17 at 23:00 Vancomycin HCl/ Sodium Chloride (Vancocin/NS) 250 ml @ 83.333 mls/ hr Q72H IVPB Last administered on 09/08/17 13:34; Admin Dose 83.333 MLS/HR; Start at 13:00 Heparin Sodium (Porcine) (Heparin (5000 Units/0.5 ml)) 5,000 unit Q8 SC Last administered on 09/09/17 05:30; Admin Dose 5,000 UNIT; Start 09/06/17 at 22: 00 Epoetin Kashif (Epogen (Esrd)) 10,000 units TuThSa@17 SC Last administered on 17:07; Admin Dose 10,000 UNITS; Start 09/07/17 at 17:00 Amlodipine Besylate (Norvasc) 10 mg DAILY PO Last administered on 09/09/17 08 :40; Admin Dose 10 MG; Start 09/08/17 at 09:00 Insulin Glargine (Lantus) 13 unit DAILY@10 SC Last administered on 09/09/17 11:52; Admin Dose 13 UNIT; Start 09/08/17 at 10:00 Prednisone (Prednisone) 20 mg DAILY PO Last administered on 09/09/17 08:40; Admin Dose 20 MG; Start 09/09/17 at 09:00 Hydralazine HCl (Apresoline) 25 mg TID PO Last administered on 09/09/17 08:40 ; Admin Dose 25 MG; Start 09/08/17 at 13:00 Assessment/Plan Chief Complaint/Hosp Course IMPRESSION: Hypoxemic respiratory insufficiency in the setting of hypertension, chronic kidney disease and volume overload. Persistent leukocytosis concerning for pneumonia. Chest x-ray demonstrates worsening pulmonary edema. Ongoing infiltrates RECOMMENDATIONS: 1. Continue antibiotics, CT chest to evaluate lung parenchyma. 2 renal recommendations. 3. Cardiac recommendations 4. Aspiration precautions 5. Decrease FiO2 as tolerated PT evaluation Problems: TANI TOLEDO MD, [facility] Sep 09, 2017 12:19
--- NOTE | 2017-09-09 12:40 | CONS ---
Date/Time of Note Date/Time of Note DATE: 09/09/17 TIME: 12:38 Assessment/Plan Assessment/Plan Additional Assessment/Plan Acute decompensated diastolic congestive heart failure Preserved ejection fraction Mild to moderate aortic valve stenosis Volume overload Sepsis Pneumonia Cellulitis Acute on chronic kidney disease -Echocardiogram with preserved ejection fraction, mild to moderate aortic valve stenosis. IVC is dilated but does collapse with inspiration. Continue diuretics as per our nephrology colleagues. Antibiotics as per infectious disease. Blood pressure trend improved. Consultation Date/Type/Reason Admit Date/Time Aug 24, 2017 at 19:05 Initial Consult Date 08/31/17 Type of Consultation: cv Referring Provider: GIA DUMONT 24 HR Interval Summary Free Text/Dictation Patient seen and examined, denies shortness of breath Exam/Review of Systems Vital Signs Vitals Vital Signs Date Time Temp Pulse Resp B/P Pulse Ox O2 Delivery O2 Flow Rate FiO2 09/09/17 12:04 77 09/09/17 11:30 98.2 19 130/74 99 09/09/17 10:46 4.0 36 09/09/17 10:46 Nasal Cannula Intake and Output 09/08/17 09/08/17 09/09/17 15:00 23:00 07:00 Intake Total 1000 ml 200 ml Output Total 1000 ml 1700 ml Balance 0 ml -1500 ml Exam No apparent distress Constitutional: alert, oriented Head: normocephalic Respiratory: other (Coarse breath sounds bilaterally, no wheezing) Cardiovascular: other (S1-S2 heard), regular rate and rhythm Gastrointestinal: bowel sounds, non-tender, soft Extremities: edema Results Result Diagram: 09/09/17 0556 09/09/17 0556 Results 24 hrs Laboratory Tests Test 09/08/17 17:56 09/08/17 22:32 09/09/17 03:06 09/09/17 05:56 Bedside Glucose 328 H 283 H 188 White Blood Count 28.8 H Red Blood Count 2.75 L Hemoglobin 8.2 L Hematocrit 24.4 L Mean Corpuscular Volume 88.7 Mean Corpuscular Hemoglobin 29.8 Mean Corpuscular Hemoglobin Concent 33.6 Red Cell Distribution Width 17.3 H Platelet Count 332 # Mean Platelet Volume 11.1 H Neutrophils % Segmented Neutrophils % (Manual) 50 Band Neutrophils % (Manual) 12 H Lymphocytes % Lymphocytes % (Manual) 8 L Reactive Lymphocytes % (Manual) 5 H Monocytes % Monocytes % (Manual) 20 H Eosinophils % Basophils % Nucleated Red Blood Cells % 1.5 H Neutrophils # Neutrophils # (Manual) 15.4 H Band Neutrophils # 3.4 H Absolute Lymphocytes (Manual) 2.3 Lymphocytes # Reactive Lymphocytes # 1.4 H Monocytes # Absolute Monocytes (Manual) 5.7 H Eosinophils # Basophils # Nucleated Red Blood Cells # Platelet Estimate NORMAL Giant Platelets 3 H Anisocytosis 1+ Microcytosis 1+ Sodium Level 138 Potassium Level 3.3 L Chloride Level 101 Carbon Dioxide Level 26 Anion Gap 14 Blood Urea Nitrogen 47 H Creatinine 2.56 H Glucose Level 171 Calcium Level 8.1 L Phosphorus Level 4.1 Magnesium Level 2.3 Test 09/09/17 08:06 09/09/17 11:45 Bedside Glucose 171 225 H Medications Medications Current Medications Ondansetron HCl (Zofran Inj) 4 mg Q6H PRN IV NAUSEA AND/OR VOMITING Last administered on 09/04/17 13:47; Admin Dose 4 MG; Start 08/25/17 at 08:00 Morphine Sulfate (morphine) 2 mg Q4H PRN IV PAIN Last administered on 09/01/17 20:06; Admin Dose 2 MG; Start 08/25/17 at 08:00 Bisoprolol Fumarate (Zebeta) 10 mg DAILY PO Last administered on 09/09/17 08: 39; Admin Dose 10 MG; Start 08/25/17 at 09:00 Loratadine (Claritin) 10 mg DAILY PO Last administered on 09/09/17 08:40; Admin Dose 10 MG; Start 08/25/17 at 09:00 Losartan Potassium (Cozaar) 50 mg DAILY PO Last administered on 09/09/17 08: 40; Admin Dose 50 MG; Start 08/25/17 at 09:00 Diagnostic Test (Pha) (Accu-Chek) 1 ea 02 XX Last administered on 09/06/17 02 :00; Admin Dose 1 EA; Start 08/26/17 at 02:00 Miscellaneous Information 1 ea NOTE XX ; Start 08/25/17 at 14:00 Glucose (Glutose) 15 gm Q15M PRN PO DECREASED GLUCOSE; Start 08/25/17 at 14:00 Glucose (Glutose) 22.5 gm Q15M PRN PO DECREASED GLUCOSE; Start 08/25/17 at 14: 00 Dextrose (D50w Syringe) 25 ml Q15M PRN IV DECREASED GLUCOSE Last administered on 09/05/17 12:07; Admin Dose 25 ML; Start 08/25/17 at 14:00 Dextrose (D50w Syringe) 50 ml Q15M PRN IV DECREASED GLUCOSE Last administered on 09/03/17 20:53; Admin Dose 50 ML; Start 08/25/17 at 14:00 Glucagon (Glucagen) 1 mg Q15M PRN IM DECREASED GLUCOSE; Start 08/25/17 at 14: 00 Glucose (Glutose) 15 gm Q15M PRN BUCCAL DECREASED GLUCOSE; Start 08/25/17 at 14:00 Acetaminophen 650 mg 650 mg Q4H PRN PO PAIN AND OR ELEVATED TEMP Last administered on 08/26/17 17:06; Admin Dose 650 MG; Start 08/25/17 at 20:30 Fluconazole (Diflucan 200 Mg/ NS (Pmx)) 100 ml @ 100 mls/hr Q24H IVPB Last administered on 09/08/17 13:33; Admin Dose 100 MLS/HR; Start 08/27/17 at 13: 00 Miscellaneous Medication 10 ml 10 ml TID PO Last administered on 09/09/17 08: 38; Admin Dose 10 ML; Start 08/29/17 at 13:00 Leucovorin Calcium/Dextrose (Leucovorin Calcium Inj/D5W) 50 ml @ 200 mls/hr Q6H IV Last administered on 09/06/17 16:15; Admin Dose 200 MLS/HR; Start at 22:00; Status Future Hold Morphine Sulfate (morphine) 1 mg Q4H PRN IV LESS THAN 5/10 PAIN Last administered on 09/01/17 13:10; Admin Dose 1 MG; Start 08/30/17 at 20:00 Hydralazine HCl (Apresoline) 10 mg Q6H PRN IV ELEVATED SYSTOLIC BP Last administered on 09/08/17 01:18; Admin Dose 10 MG; Start 09/01/17 at 21:30 Silver Sulfadiazine (Thermazene 1% 400 Gm) 1 applic BID TOP Last administered on 09/09/17 08:42; Admin Dose 1 APPLIC; Start 09/04/17 at 14:00 Hydralazine HCl 10 mg 10 mg Q4H PRN IV ELEVATED BLOOD PRESSURE; Start at 01:00 Meropenem/Sodium Chloride 50 ml @ 100 mls/hr Q12 IVPB Last administered on 08:43; Admin Dose 100 MLS/HR; Start 09/05/17 at 23:00 Vancomycin HCl/ Sodium Chloride (Vancocin/NS) 250 ml @ 83.333 mls/ hr Q72H IVPB Last administered on 09/08/17 13:34; Admin Dose 83.333 MLS/HR; Start at 13:00 Heparin Sodium (Porcine) (Heparin (5000 Units/0.5 ml)) 5,000 unit Q8 SC Last administered on 09/09/17 05:30; Admin Dose 5,000 UNIT; Start 09/06/17 at 22: 00 Epoetin Kashif (Epogen (Esrd)) 10,000 units TuThSa@17 SC Last administered on 17:07; Admin Dose 10,000 UNITS; Start 09/07/17 at 17:00 Amlodipine Besylate (Norvasc) 10 mg DAILY PO Last administered on 09/09/17 08 :40; Admin Dose 10 MG; Start 09/08/17 at 09:00 Insulin Glargine (Lantus) 13 unit DAILY@10 SC Last administered on 09/09/17 11:52; Admin Dose 13 UNIT; Start 09/08/17 at 10:00 Prednisone (Prednisone) 20 mg DAILY PO Last administered on 09/09/17 08:40; Admin Dose 20 MG; Start 09/09/17 at 09:00 Hydralazine HCl (Apresoline) 25 mg TID PO Last administered on 09/09/17 08:40 ; Admin Dose 25 MG; Start 09/08/17 at 13:00 Tj Marie DO Sep 09, 2017 12:39
--- NOTE | 2017-09-09 12:47 | PN ---
Date/Time of Note Date/Time of Note DATE: 09/09/17 TIME: 12:34 Assessment/Plan Lines/Catheters IV Catheter Type (from [facility]): Saline Lock Reina in Place (from [facility]): Yes Assessment/Plan Chief Complaint/Hosp Course 1. Left lower extremity cellulitis and edema with history of diabetes; Still no weeping/open areas; minimally improved; CT lower extremity: no abscess -continue supportive measures -Elevate above heart level 2. Leukocytosis with history of leukopenia: on predisone; without fevers improving -trend -cont abx per ID 3. Diabetes -Nutrition medication optimization -Encourage weight loss 4. Hypertension -Nutrition medication optimization -Encourage weight loss 5. Chronic kidney disease: cr stable -Judicious fluid management -Avoid nephrotoxic agents 6. PNA: bilat: CT chest pending -per pulm -pulm toilet 7. Hypoalbuminemia with hypocalcemia -Nutritional optimization 8. Anemia: no acute bleed noted -monitor -transfuse as needed 9. Electrolyte imbalance -optimize lytes Thank you. Patient seen and examined in collaboration with Dr. William Russ. Problems: Subjective 24 Hr Interval Summary Left leg without pain. Improved mobility. Swelling much improved. Sob with exertion, with readily audible wheezing. Leukocytosis improving. No fevers, chills, cp, palpitations, walsh, dizziness, n/v/d/dysuria. Exam/Review of Systems Vital Signs Vitals Vital Signs Date Time Temp Pulse Resp B/P Pulse Ox O2 Delivery O2 Flow Rate FiO2 09/09/17 12:04 77 09/09/17 11:30 98.2 19 130/74 99 09/09/17 10:46 4.0 36 09/09/17 10:46 Nasal Cannula Intake and Output 09/08/17 09/08/17 09/09/17 15:00 23:00 07:00 Intake Total 1000 ml 200 ml Output Total 1000 ml 1700 ml Balance 0 ml -1500 ml Exam Free Text/Dictation Constitutional: obese, other (Awake), No distress Psych: nl mood/affect, No anxiety Head: atraumatic, normocephalic Eyes: EOMI, PERRL, nl conjunctiva, No icteric ENMT: mucosa pink and dry, nl external ears & nose, nl lips & teeth Neck: non-tender, supple, No jvd Respiratory: sob w exertion, wheezing No congested cough, No labored breathing, No wheezing Cardiovascular: edema (Left lower extremity- improving), regular rate and rhythm Gastrointestinal: non-tender, soft, No rebound or guarding Musculoskeletal: joint tenderness (Left ankle), No nl extremities to inspection Extremities: edema, normal pulses, pitting Left pedal edema +2 (much improved) , tenderness, No calf tenderness Neurological: nl mental status, nl strength Skin: rash or lesions (Left lower extremity-discoloration improved, flaky skin) , No diaphoresis, No nl turgor Lymph: nl lymph nodes, nontender Results Result Diagram: 09/09/17 0556 09/09/17 0556 EDMUND KINCAID NP Sep 09, 2017 12:45
--- NOTE | 2017-09-09 14:14 | CONS ---
Date/Time of Note Date/Time of Note DATE: 09/09/17 TIME: 14:14 Consult Date/Type/Reason Admit Date/Time Aug 24, 2017 at 19:05 Initial Consult Date 08/29/17 Type of Consultation: id Ordering Provider: GIA DUMONT Objective Vital Signs Date Time Temp Pulse Resp B/P Pulse Ox O2 Delivery O2 Flow Rate FiO2 09/09/17 13:43 4.0 36 09/09/17 13:43 78 24 Nasal Cannula 09/09/17 11:30 98.2 130/74 99 Intake and Output 09/08/17 09/08/17 09/09/17 15:00 23:00 07:00 Intake Total 1000 ml 200 ml Output Total 1000 ml 1700 ml Balance 0 ml -1500 ml Results/Medications Result Diagram: 09/09/17 0556 09/09/17 0556 Results 24 hrs Laboratory Tests Test 09/08/17 17:56 09/08/17 22:32 09/09/17 03:06 09/09/17 05:56 Bedside Glucose 328 H 283 H 188 White Blood Count 28.8 H Red Blood Count 2.75 L Hemoglobin 8.2 L Hematocrit 24.4 L Mean Corpuscular Volume 88.7 Mean Corpuscular Hemoglobin 29.8 Mean Corpuscular Hemoglobin Concent 33.6 Red Cell Distribution Width 17.3 H Platelet Count 332 # Mean Platelet Volume 11.1 H Neutrophils % Segmented Neutrophils % (Manual) 50 Band Neutrophils % (Manual) 12 H Lymphocytes % Lymphocytes % (Manual) 8 L Reactive Lymphocytes % (Manual) 5 H Monocytes % Monocytes % (Manual) 20 H Eosinophils % Basophils % Nucleated Red Blood Cells % 1.5 H Neutrophils # Neutrophils # (Manual) 15.4 H Band Neutrophils # 3.4 H Absolute Lymphocytes (Manual) 2.3 Lymphocytes # Reactive Lymphocytes # 1.4 H Monocytes # Absolute Monocytes (Manual) 5.7 H Eosinophils # Basophils # Nucleated Red Blood Cells # Platelet Estimate NORMAL Giant Platelets 3 H Anisocytosis 1+ Microcytosis 1+ Sodium Level 138 Potassium Level 3.3 L Chloride Level 101 Carbon Dioxide Level 26 Anion Gap 14 Blood Urea Nitrogen 47 H Creatinine 2.56 H Glucose Level 171 Calcium Level 8.1 L Phosphorus Level 4.1 Magnesium Level 2.3 Test 09/09/17 08:06 09/09/17 11:45 Bedside Glucose 171 225 H Medications Current Medications Ondansetron HCl (Zofran Inj) 4 mg Q6H PRN IV NAUSEA AND/OR VOMITING Last administered on 09/04/17 13:47; Admin Dose 4 MG; Start 08/25/17 at 08:00 Morphine Sulfate (morphine) 2 mg Q4H PRN IV 5 PAIN Last administered on 09/01/17 20:06; Admin Dose 2 MG; Start 08/25/17 at 08:00 Bisoprolol Fumarate (Zebeta) 10 mg DAILY PO Last administered on 09/09/17 08: 39; Admin Dose 10 MG; Start 08/25/17 at 09:00 Loratadine (Claritin) 10 mg DAILY PO Last administered on 09/09/17 08:40; Admin Dose 10 MG; Start 08/25/17 at 09:00 Losartan Potassium (Cozaar) 50 mg DAILY PO Last administered on 09/09/17 08: 40; Admin Dose 50 MG; Start 08/25/17 at 09:00 Diagnostic Test (Pha) (Accu-Chek) 1 ea 02 XX Last administered on 09/06/17 02 :00; Admin Dose 1 EA; Start 08/26/17 at 02:00 Miscellaneous Information 1 ea NOTE XX ; Start 08/25/17 at 14:00 Glucose (Glutose) 15 gm Q15M PRN PO DECREASED GLUCOSE; Start 08/25/17 at 14:00 Glucose (Glutose) 22.5 gm Q15M PRN PO DECREASED GLUCOSE; Start 08/25/17 at 14: 00 Dextrose (D50w Syringe) 25 ml Q15M PRN IV DECREASED GLUCOSE Last administered on 09/05/17 12:07; Admin Dose 25 ML; Start 08/25/17 at 14:00 Dextrose (D50w Syringe) 50 ml Q15M PRN IV DECREASED GLUCOSE Last administered on 09/03/17 20:53; Admin Dose 50 ML; Start 08/25/17 at 14:00 Glucagon (Glucagen) 1 mg Q15M PRN IM DECREASED GLUCOSE; Start 08/25/17 at 14: 00 Glucose (Glutose) 15 gm Q15M PRN BUCCAL DECREASED GLUCOSE; Start 08/25/17 at 14:00 Acetaminophen 650 mg 650 mg Q4H PRN PO PAIN AND OR ELEVATED TEMP Last administered on 08/26/17 17:06; Admin Dose 650 MG; Start 08/25/17 at 20:30 Fluconazole (Diflucan 200 Mg/ NS (Pmx)) 100 ml @ 100 mls/hr Q24H IVPB Last administered on 09/08/17 13:33; Admin Dose 100 MLS/HR; Start 08/27/17 at 13: 00 Miscellaneous Medication 10 ml 10 ml TID PO Last administered on 09/09/17 08: 38; Admin Dose 10 ML; Start 08/29/17 at 13:00 Leucovorin Calcium/Dextrose (Leucovorin Calcium Inj/D5W) 50 ml @ 200 mls/hr Q6H IV Last administered on 09/06/17 16:15; Admin Dose 200 MLS/HR; Start at 22:00; Status Future Hold Morphine Sulfate (morphine) 1 mg Q4H PRN IV LESS THAN 5/10 PAIN Last administered on 09/01/17 13:10; Admin Dose 1 MG; Start 08/30/17 at 20:00 Hydralazine HCl (Apresoline) 10 mg Q6H PRN IV ELEVATED SYSTOLIC BP Last administered on 09/08/17 01:18; Admin Dose 10 MG; Start 09/01/17 at 21:30 Silver Sulfadiazine (Thermazene 1% 400 Gm) 1 applic BID TOP Last administered on 09/09/17 08:42; Admin Dose 1 APPLIC; Start 09/04/17 at 14:00 Hydralazine HCl 10 mg 10 mg Q4H PRN IV ELEVATED BLOOD PRESSURE; Start at 01:00 Meropenem/Sodium Chloride 50 ml @ 100 mls/hr Q12 IVPB Last administered on 08:43; Admin Dose 100 MLS/HR; Start 09/05/17 at 23:00 Vancomycin HCl/ Sodium Chloride (Vancocin/NS) 250 ml @ 83.333 mls/ hr Q72H IVPB Last administered on 09/08/17 13:34; Admin Dose 83.333 MLS/HR; Start at 13:00 Heparin Sodium (Porcine) (Heparin (5000 Units/0.5 ml)) 5,000 unit Q8 SC Last administered on 09/09/17 05:30; Admin Dose 5,000 UNIT; Start 09/06/17 at 22: 00 Epoetin Kashif (Epogen (Esrd)) 10,000 units TuThSa@17 SC Last administered on 17:07; Admin Dose 10,000 UNITS; Start 09/07/17 at 17:00 Amlodipine Besylate (Norvasc) 10 mg DAILY PO Last administered on 09/09/17 08 :40; Admin Dose 10 MG; Start 09/08/17 at 09:00 Insulin Glargine (Lantus) 13 unit DAILY@10 SC Last administered on 09/09/17 11:52; Admin Dose 13 UNIT; Start 09/08/17 at 10:00 Prednisone (Prednisone) 20 mg DAILY PO Last administered on 09/09/17 08:40; Admin Dose 20 MG; Start 09/09/17 at 09:00 Hydralazine HCl (Apresoline) 25 mg TID PO Last administered on 09/09/17 08:40 ; Admin Dose 25 MG; Start 09/08/17 at 13:00 Assessment/Plan Chief Complaint/Hosp Course SUBJECTIVE: Remains on 4L nc, no fevers, nad MICROBIOLOGY: Urine and blood cultures negative. ANTIMICROBIALS: 1. Fluconazole. 2. Vanco. 3. Merrem. PHYSICAL EXAMINATION: GENERAL: This is a well-developed, elderly woman who is in no distress. HEENT: Head atraumatic, normocephalic. Sclerae anicteric. Buccal mucosa dry. NECK: Supple. CHEST: Rise symmetrical. Breath sounds diminished to bases, with exp wheezes and prolonged expiratory phase. HEART: S1, S2. ABDOMEN: Soft, bowel tones present. EXTREMITIES: Without cyanosis. Left lower extremity dsg intact. ASSESSMENT: 1. Left lower extremity cellulitis 2. S/p acute resp failure ?PNA ? fluid overload 2. Pancytopenia/severe thrombocytopenia==>resolved. 3. S/p neutropenia . 4. Acute possibly on chronic kidney disease. 5. Hypertension. 6. Diabetes. PLAN: The patient remains unchanged, follows by multiple consultants, continue abx, diuretics, LLE elevation, pending CT of the chest, will send serology for cocci DW staff Problems: CODY VASQUEZ NP Sep 09, 2017 14:14
[2017-09-09] MEDS: FLUCONAZOLE 200 MG/NS (PMX) 100 ML IVPB SCH (15:13)
[2017-09-09] MEDS ORDERED: NACL 3% FOR INHALATION 15 ML NEBU NEB ONE (15:30)
[2017-09-09] MEDS ORDERED: CASPOFUNGIN 70 MG in SOD CHLORIDE 0.9% 250 ML IVPB ONE (15:30)
--- NOTE | 2017-09-09 16:01 | PN ---
Date/Time of Note Date/Time of Note DATE: 09/09/17 TIME: 15:57 Assessment/Plan VTE Prophylaxis VTE Prophylaxis Intervention: heparin Lines/Catheters IV Catheter Type (from Nrs): Saline Lock Urinary Cath still in place: Yes Reason Cath still needed: terminal illness/intractable pain Assessment/Plan Chief Complaint/Hosp Course Patient is a 61-year-old female with a past medical history of hypertension, diabetes, CKD who presented for left lower extremity cellulitis. Assessment/Plan #shortness of breath. Bilateral Pneumonia, resolving - Patient found to have b/l PNA on chest xray - On antibiotics and changed to Meropenem per ID - Pulmonology consultation placed and appreciated recommendations, doubts PNA process - On Neb treatments -tapering steroids #pulmonary edema - likely etiology given elevated BNP and xray -continue lasix, careful given Cr -echo noted #acute on chronic diastolic congestive heart failure -continue lasix -cards recs appreciated -echo noted #. Left lower extremity cellulitis - ID and Surgery on board. Recommendations appreciated - Antibiotic per ID - CT LE showed cellulitis and no evidence of osteomyelitis. Xray LE also performed and no osteomyelitis appreciated. -gen surg/vascular surg do not feel any acute intervention is needed -wraps #. Mucositis 2/2 methotrexate use- improving - diphen/lido/mal oral solution ordered. Morphine if pain remain intolerable for PO intake - Tolerating soft mech diet #. Pancytopenia- improving -now leukocytosis, possible due to filgrastim per heme/onc - No transfusions needed today - Hematology on board and recommendations appreciated. - s/p multiple blood transfusions and plt transfusions. #leukocytosis -profound, ? steroids combined with neupogen. -downtrending #. Neutropenia- resolved - WBC downtrending now <30 and Neupogen no longer on board - Will continue to monitor - Heme on board and recommendations appreciated #. BK vs BK on CKD - Nephrology on board and recommendations appreciated. - Cr elevated, but lower than admission, likely chronic component - Monitor UOP - HIV negative, KASSY negative #. Hypokalemia - stable #. Eosinophilia - normalized after d/c sulfasalazine and mtx #. Vascular insufficiency - Vascular surgery on board and recommendations appreciated. No current vascular intervention as the patient has not developed any gangrene or ulcers - Will need to follow up as outpatient due to LE atherosclerosis DISPO: CT chest pending, caspofungin started per ID. Will need to finalize abx per ID, dibarbe, watch white count, when showing signs of stability, DC to SNF once on stable dose of lasix oral. 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 Problems: Subjective 24 Hr Interval Summary Free Text/Dictation patient still wheezing and has difficulty with movement Exam/Review of Systems Vital Signs Vitals Vital Signs Date Time Temp Pulse Resp B/P Pulse Ox O2 Delivery O2 Flow Rate FiO2 09/09/17 15:16 98.2 79 19 145/73 95 09/09/17 13:43 4.0 36 09/09/17 13:43 Nasal Cannula Intake and Output 09/08/17 09/08/17 09/09/17 15:00 23:00 07:00 Intake Total 1000 ml 200 ml Output Total 1000 ml 1700 ml Balance 0 ml -1500 ml Exam Physical exam General: Patient is laying in bed and responds appropriately Mentation: Patient is alert and oriented 4, Head: Normocephalic atraumatic Eyes: EOMI, pupils reactive to light Neck: Supple, nontender, midline Respiratory: coarse to auscultation bilaterally, with wheezing Cardiovascular: regular rate, no obvious murmurs Gastrointestinal: non-tender to palpation, bowel sounds heard. Neurological: Moves all extremities spontaneously Skin: left leg erythematous, mild tenderness. Results Result Diagram: 09/09/17 0556 09/09/17 0556 Results 24 hrs Laboratory Tests Test 09/08/17 17:56 09/08/17 22:32 09/09/17 03:06 09/09/17 05:56 Bedside Glucose 328 H 283 H 188 White Blood Count 28.8 H Red Blood Count 2.75 L Hemoglobin 8.2 L Hematocrit 24.4 L Mean Corpuscular Volume 88.7 Mean Corpuscular Hemoglobin 29.8 Mean Corpuscular Hemoglobin Concent 33.6 Red Cell Distribution Width 17.3 H Platelet Count 332 # Mean Platelet Volume 11.1 H Neutrophils % Segmented Neutrophils % (Manual) 50 Band Neutrophils % (Manual) 12 H Lymphocytes % Lymphocytes % (Manual) 8 L Reactive Lymphocytes % (Manual) 5 H Monocytes % Monocytes % (Manual) 20 H Eosinophils % Basophils % Nucleated Red Blood Cells % 1.5 H Neutrophils # Neutrophils # (Manual) 15.4 H Band Neutrophils # 3.4 H Absolute Lymphocytes (Manual) 2.3 Lymphocytes # Reactive Lymphocytes # 1.4 H Monocytes # Absolute Monocytes (Manual) 5.7 H Eosinophils # Basophils # Nucleated Red Blood Cells # Platelet Estimate NORMAL Giant Platelets 3 H Anisocytosis 1+ Microcytosis 1+ Sodium Level 138 Potassium Level 3.3 L Chloride Level 101 Carbon Dioxide Level 26 Anion Gap 14 Blood Urea Nitrogen 47 H Creatinine 2.56 H Glucose Level 171 Calcium Level 8.1 L Phosphorus Level 4.1 Magnesium Level 2.3 Test 09/09/17 08:06 09/09/17 11:45 Bedside Glucose 171 225 H Medications Medications Current Medications Ondansetron HCl (Zofran Inj) 4 mg Q6H PRN IV NAUSEA AND/OR VOMITING Last administered on 09/04/17 13:47; Admin Dose 4 MG; Start 08/25/17 at 08:00 Morphine Sulfate (morphine) 2 mg Q4H PRN IV PAIN Last administered on 09/01/17 20:06; Admin Dose 2 MG; Start 08/25/17 at 08:00 Bisoprolol Fumarate (Zebeta) 10 mg DAILY PO Last administered on 09/09/17 08: 39; Admin Dose 10 MG; Start 08/25/17 at 09:00 Loratadine (Claritin) 10 mg DAILY PO Last administered on 09/09/17 08:40; Admin Dose 10 MG; Start 08/25/17 at 09:00 Losartan Potassium (Cozaar) 50 mg DAILY PO Last administered on 09/09/17 08: 40; Admin Dose 50 MG; Start 08/25/17 at 09:00 Diagnostic Test (Pha) (Accu-Chek) 1 ea 02 XX Last administered on 09/06/17 02 :00; Admin Dose 1 EA; Start 08/26/17 at 02:00 Miscellaneous Information 1 ea NOTE XX ; Start 08/25/17 at 14:00 Glucose (Glutose) 15 gm Q15M PRN PO DECREASED GLUCOSE; Start 08/25/17 at 14:00 Glucose (Glutose) 22.5 gm Q15M PRN PO DECREASED GLUCOSE; Start 08/25/17 at 14: 00 Dextrose (D50w Syringe) 25 ml Q15M PRN IV DECREASED GLUCOSE Last administered on 09/05/17 12:07; Admin Dose 25 ML; Start 08/25/17 at 14:00 Dextrose (D50w Syringe) 50 ml Q15M PRN IV DECREASED GLUCOSE Last administered on 09/03/17 20:53; Admin Dose 50 ML; Start 08/25/17 at 14:00 Glucagon (Glucagen) 1 mg Q15M PRN IM DECREASED GLUCOSE; Start 08/25/17 at 14: 00 Glucose (Glutose) 15 gm Q15M PRN BUCCAL DECREASED GLUCOSE; Start 08/25/17 at 14:00 Acetaminophen (Tylenol Tab) 650 mg Q4H PRN PO PAIN AND OR ELEVATED TEMP Last administered on 08/26/17 17:06; Admin Dose 650 MG; Start 08/25/17 at 20:30 Miscellaneous Medication 10 ml 10 ml TID PO Last administered on 09/09/17 15: 15; Admin Dose 10 ML; Start 08/29/17 at 13:00 Leucovorin Calcium/Dextrose (Leucovorin Calcium Inj/D5W) 50 ml @ 200 mls/hr Q6H IV Last administered on 09/06/17 16:15; Admin Dose 200 MLS/HR; Start at 22:00; Status Future Hold Morphine Sulfate (morphine) 1 mg Q4H PRN IV LESS THAN 5/10 PAIN Last administered on 09/01/17 13:10; Admin Dose 1 MG; Start 08/30/17 at 20:00 Hydralazine HCl (Apresoline) 10 mg Q6H PRN IV ELEVATED SYSTOLIC BP Last administered on 09/08/17 01:18; Admin Dose 10 MG; Start 09/01/17 at 21:30 Silver Sulfadiazine (Thermazene 1% 400 Gm) 1 applic BID TOP Last administered on 09/09/17 08:42; Admin Dose 1 APPLIC; Start 09/04/17 at 14:00 Hydralazine HCl 10 mg 10 mg Q4H PRN IV ELEVATED BLOOD PRESSURE; Start at 01:00 Meropenem/Sodium Chloride 50 ml @ 100 mls/hr Q12 IVPB Last administered on 08:43; Admin Dose 100 MLS/HR; Start 09/05/17 at 23:00 Vancomycin HCl/ Sodium Chloride (Vancocin/NS) 250 ml @ 83.333 mls/ hr Q72H IVPB Last administered on 09/08/17 13:34; Admin Dose 83.333 MLS/HR; Start at 13:00 Heparin Sodium (Porcine) (Heparin (5000 Units/0.5 ml)) 5,000 unit Q8 SC Last administered on 09/09/17 15:16; Admin Dose 5,000 UNIT; Start 09/06/17 at 22: 00 Epoetin Kashif (Epogen (Esrd)) 10,000 units TuThSa@17 SC Last administered on 17:07; Admin Dose 10,000 UNITS; Start 09/07/17 at 17:00 Amlodipine Besylate (Norvasc) 10 mg DAILY PO Last administered on 09/09/17 08 :40; Admin Dose 10 MG; Start 09/08/17 at 09:00 Insulin Glargine (Lantus) 13 unit DAILY@10 SC Last administered on 09/09/17 11:52; Admin Dose 13 UNIT; Start 09/08/17 at 10:00 Prednisone (Prednisone) 20 mg DAILY PO Last administered on 09/09/17 08:40; Admin Dose 20 MG; Start 09/09/17 at 09:00 Hydralazine HCl 25 mg 25 mg TID PO Last administered on 09/09/17 15:21; Admin Dose 25 MG; Start 09/08/17 at 13:00 Caspofungin 50 mg/ Sodium Chloride 250 ml @ 250 mls/hr Q24H IVPB ; Start 09/10 at 15:30 Caspofungin/ Sodium Chloride (Cancidas/NS) 250 ml @ 250 mls/hr ONCE ONCE IVPB ; Start 09/09/17 at 15:30; Stop 09/09/17 at 16:29 GIA DUMONT Sep 09, 2017 16:01
[2017-09-09] MEDS: EPOETIN 10000 UNITS/1 ML INJ (ESRD) SC SCH (16:50)
[2017-09-10] VITALS (12 sets, daily range): BP systolic 133–166; BP diastolic 67–80; PULSE 77–86; RESP 18–24
[2017-09-10] MEDS: ALBUTEROL/IPRATROPIUM (NEB) 3 ML AMP HHN SCH ×6 (00:40→20:13)
[2017-09-10] MEDS: ACCU-CHEK XX SCH ×3 (02:00→21:00)
[2017-09-10] MEDS: FUROSEMIDE 40 MG INJ IV SCH ×2 (05:41→18:05)
[2017-09-10] MEDS: hydrALAzine 20 MG INJ IV PRN (05:41)
[2017-09-10] MEDS: HEPARIN 5,000 UNIT/0.5 ML VIAL SC SCH ×3 (05:47→21:08)
[2017-09-10] MEDS: INSULIN ASPART [NOVOLOG] 3 ML PEN SC SCH ×6 (07:56→21:05)
[2017-09-10] MEDS: INSULIN GLARGINE [LANtus] 3 ML PEN SC SCH (10:00)
--- NOTE | 2017-09-10 10:30 | PN ---
DATE: 09/10/2017 SUBJECTIVE: Patient appears to be feeling better. Unfortunately, there is some language difficulti es, but the patient does not appear to have any complaints. She is experiencing less mouth soreness and less shortness of breath. OBJECTIVE: GENERAL: The patient is a well-developed, mildly obese female who is in no acute distress. VITAL SIGNS: Temperature 97.5, pulse 84 per minute and regular, respirations 20, blood pressure 150 /71, pulse oximetry 96% on 3 liters of oxygen by nasal cannula. SKIN: No ecchymoses, no petechiae or rashes. There are the stasis changes located in the pretibial and pedal areas of the left lower extremity. There is dryness and flaking of the skin. No open le sions. HEENT: Normocephalic. No evidence of trauma. Pupils equal, round, react to light and accommodatio n. Sclerae nonicteric. Oral mucosa and conjunctivae are pale. There are no longer any mucosal les ions noted. NECK: Supple, no jugular venous distention or thyroid enlargement. CHEST: Bilateral crackling rales, which do not clear with cough. There are decreased breath sounds in both bases. No rubs or wheezes. HEART: Regular sinus rhythm, no S3, S4 or murmurs. ABDOMEN: Obese but soft. There are no masses or ascites. EXTREMITIES: Good range of motion. No clubbing or cyanosis. The inflammatory process in the dista l left lower extremity has improved considerably. As noted above, there is dryness and flaking of t he skin. No longer warm to the touch and less edematous. NEUROLOGIC: Unchanged. LABORATORY DATA: White count is 29,200. There are 3.9% nucleated red blood cells. Hemoglobin 7.9, hematocrit 25 and platelet count 438,000. Sodium 136, potassium 3.5, creatinine is 2.49. BUN is 49. ASSESSMENT: 1. Pancytopenia, likely secondary to methotrexate, has resolved. 2. Cellulitis of the left lower extremity, resolving. 3. Shortness of breath with bilateral pneumonia, improving. DISCUSSION: Patient is off of filgrastim. White count seems to be stabilizing, but would expect, o bviously for her to continue to decrease. Platelet count has returned to normal. The patient is st ill anemic. He has been started on erythropoietin, but the combination of effect of methotrexate on the marrow and the patient's chronic kidney dysfunction may lead to a chronic anemic process. We will request a repeat CBC and retic count in the a.m. Dictated By: NOAH ROSEN MD, SR/BROOKE Conf#: [id number] DID#: [id number]
[2017-09-10] MEDS: MEROPENEM 500MG/50 ML (PMX) 50 ML IVPB SCH ×2 (10:43→20:23)
[2017-09-10] MEDS: LORATADINE 10 MG TAB PO SCH (10:43)
[2017-09-10] MEDS: LOSARTAN 50 MG TAB PO SCH (10:43)
[2017-09-10] MEDS: AMLODIPINE 10 MG TAB PO SCH (10:44)
[2017-09-10] MEDS: BISOPROLOL 5 MG TAB PO SCH (10:44)
[2017-09-10] MEDS: POTASSIUM CHLORIDE (SR) 20 MEQ TAB PO SCH (10:44)
[2017-09-10] MEDS: SILVER SULFADIAZINE 1% 400 GM CR TOP SCH ×2 (10:45→21:03)
[2017-09-10] MEDS: predniSONE 20 MG TAB PO SCH (10:45)
--- NOTE | 2017-09-10 11:03 | CONS ---
Date/Time of Note Date/Time of Note DATE: 09/10/17 TIME: 11:01 Consult Date/Type/Reason Admit Date/Time Aug 24, 2017 at 19:05 Initial Consult Date 08/31/17 Type of Consultation: Pulmonary Ordering Provider: GIA DUMONT Subjective Patient remains stable this morning continues supplemental O2. Mildly increasing dyspnea. Objective Vital Signs Date Time Temp Pulse Resp B/P Pulse Ox O2 Delivery O2 Flow Rate FiO2 09/10/17 08:38 84 20 Nasal Cannula 3.0 32 09/10/17 07:48 97.5 150/71 96 Intake and Output 09/09/17 09/09/17 09/10/17 15:00 23:00 07:00 Intake Total 680 ml Output Total 1100 ml Balance -420 ml Exam NERAL: VITAL SIGNS: per chart NECK: Supple. No JVD or lymphadenopathy. CARDIAC EXAM: S1, S2. No added sounds or murmurs. CHEST: Diminished air entry right lung. ABDOMEN: Soft, nontender. No guarding or rebound. EXTREMITIES: No cyanosis, clubbing or edema. NEUROLOGIC: Generalized weakness. No focal deficits. Results/Medications Result Diagram: 09/10/17 0654 09/10/17 0654 Results 24 hrs Laboratory Tests Test 09/09/17 11:45 09/09/17 17:55 09/09/17 21:05 09/10/17 06:54 Bedside Glucose 225 H 301 H 278 H White Blood Count 29.2 H Red Blood Count 2.81 L Hemoglobin 7.9 L Hematocrit 25.0 L Mean Corpuscular Volume 89.0 Mean Corpuscular Hemoglobin 28.1 L Mean Corpuscular Hemoglobin Concent 31.6 L Red Cell Distribution Width 17.2 H Platelet Count 438 #H Mean Platelet Volume 10.8 H Neutrophils % Segmented Neutrophils % (Manual) 55 Band Neutrophils % (Manual) 8 H Lymphocytes % (Manual) 13 L Monocytes % (Manual) 15 H Eosinophils % Basophils % (Manual) 1 Metamyelocytes % (manual) 5 H Myelocytes % (Manual) 4 H Nucleated Red Blood Cells % 5 H Neutrophils # Neutrophils # (Manual) 16.7 H Band Neutrophils # 2.3 H Absolute Lymphocytes (Manual) 3.7 H Absolute Monocytes (Manual) 4.3 H Eosinophils # Basophils # (Manual) 0.2 H Metamyelocytes # 1.4 H Myelocytes # 1.1 H Platelet Estimate NORMAL Giant Platelets 1 H Polychromasia 2+ Anisocytosis 1+ Microcytosis 1+ Spherocytes 1+ Sodium Level 136 Potassium Level 3.5 Chloride Level 100 Carbon Dioxide Level 27 Anion Gap 13 Blood Urea Nitrogen 49 H Creatinine 2.49 H Glucose Level 155 Calcium Level 7.8 L Phosphorus Level 3.7 Magnesium Level 2.2 Test 09/10/17 07:53 Bedside Glucose 155 Medications Current Medications Ondansetron HCl (Zofran Inj) 4 mg Q6H PRN IV NAUSEA AND/OR VOMITING Last administered on 09/04/17 13:47; Admin Dose 4 MG; Start 08/25/17 at 08:00 Morphine Sulfate (morphine) 2 mg Q4H PRN IV PAIN Last administered on 09/01/17 20:06; Admin Dose 2 MG; Start 08/25/17 at 08:00 Bisoprolol Fumarate (Zebeta) 10 mg DAILY PO Last administered on 09/10/17 10: 44; Admin Dose 10 MG; Start 08/25/17 at 09:00 Loratadine (Claritin) 10 mg DAILY PO Last administered on 09/10/17 10:43; Admin Dose 10 MG; Start 08/25/17 at 09:00 Losartan Potassium (Cozaar) 50 mg DAILY PO Last administered on 09/10/17 10: 43; Admin Dose 50 MG; Start 08/25/17 at 09:00 Diagnostic Test (Pha) (Accu-Chek) 1 ea 02 XX Last administered on 09/06/17 02 :00; Admin Dose 1 EA; Start 08/26/17 at 02:00 Miscellaneous Information 1 ea NOTE XX ; Start 08/25/17 at 14:00 Glucose (Glutose) 15 gm Q15M PRN PO DECREASED GLUCOSE; Start 08/25/17 at 14:00 Glucose (Glutose) 22.5 gm Q15M PRN PO DECREASED GLUCOSE; Start 08/25/17 at 14: 00 Dextrose (D50w Syringe) 25 ml Q15M PRN IV DECREASED GLUCOSE Last administered on 09/05/17 12:07; Admin Dose 25 ML; Start 08/25/17 at 14:00 Dextrose (D50w Syringe) 50 ml Q15M PRN IV DECREASED GLUCOSE Last administered on 09/03/17 20:53; Admin Dose 50 ML; Start 08/25/17 at 14:00 Glucagon (Glucagen) 1 mg Q15M PRN IM DECREASED GLUCOSE; Start 08/25/17 at 14: 00 Glucose (Glutose) 15 gm Q15M PRN BUCCAL DECREASED GLUCOSE; Start 08/25/17 at 14:00 Acetaminophen (Tylenol Tab) 650 mg Q4H PRN PO PAIN AND OR ELEVATED TEMP Last administered on 08/26/17 17:06; Admin Dose 650 MG; Start 08/25/17 at 20:30 Miscellaneous Medication 10 ml 10 ml TID PO Last administered on 09/09/17 15: 15; Admin Dose 10 ML; Start 08/29/17 at 13:00 Leucovorin Calcium/Dextrose (Leucovorin Calcium Inj/D5W) 50 ml @ 200 mls/hr Q6H IV Last administered on 09/06/17 16:15; Admin Dose 200 MLS/HR; Start at 22:00; Status Future Hold Morphine Sulfate (morphine) 1 mg Q4H PRN IV LESS THAN 5/10 PAIN Last administered on 09/01/17 13:10; Admin Dose 1 MG; Start 08/30/17 at 20:00 Hydralazine HCl (Apresoline) 10 mg Q6H PRN IV ELEVATED SYSTOLIC BP Last administered on 09/10/17 05:41; Admin Dose 10 MG; Start 09/01/17 at 21:30 Silver Sulfadiazine (Thermazene 1% 400 Gm) 1 applic BID TOP Last administered on 09/10/17 10:45; Admin Dose 1 APPLIC; Start 09/04/17 at 14:00 Hydralazine HCl 10 mg 10 mg Q4H PRN IV ELEVATED BLOOD PRESSURE; Start at 01:00 Meropenem/Sodium Chloride 50 ml @ 100 mls/hr Q12 IVPB Last administered on 10:43; Admin Dose 100 MLS/HR; Start 09/05/17 at 23:00 Vancomycin HCl/ Sodium Chloride (Vancocin/NS) 250 ml @ 83.333 mls/ hr Q72H IVPB Last administered on 09/08/17 13:34; Admin Dose 83.333 MLS/HR; Start at 13:00 Heparin Sodium (Porcine) (Heparin (5000 Units/0.5 ml)) 5,000 unit Q8 SC Last administered on 09/10/17 05:47; Admin Dose 5,000 UNIT; Start 09/06/17 at 22: 00 Epoetin Kashif (Epogen (Esrd)) 10,000 units TuThSa@17 SC Last administered on 16:50; Admin Dose 10,000 UNITS; Start 09/07/17 at 17:00 Amlodipine Besylate (Norvasc) 10 mg DAILY PO Last administered on 09/10/17 10 :44; Admin Dose 10 MG; Start 09/08/17 at 09:00 Insulin Glargine (Lantus) 13 unit DAILY@10 SC Last administered on 09/09/17 11:52; Admin Dose 13 UNIT; Start 09/08/17 at 10:00 Prednisone (Prednisone) 20 mg DAILY PO Last administered on 09/10/17 10:45; Admin Dose 20 MG; Start 09/09/17 at 09:00 Hydralazine HCl 25 mg 25 mg TID PO Last administered on 09/10/17 10:43; Admin Dose 25 MG; Start 09/08/17 at 13:00 Caspofungin/ Sodium Chloride (Cancidas/NS) 250 ml @ 250 mls/hr Q24H IVPB ; Start 09/10/17 at 15:30 Potassium Chloride (Klor-Con 20) 20 meq DAILY PO Last administered on 10:44; Admin Dose 20 MEQ; Start 09/10/17 at 09:00 Assessment/Plan Chief Complaint/Hosp Course IMPRESSION: Hypoxemic respiratory insufficiency in the setting of hypertension, chronic kidney disease and volume overload. Persistent leukocytosis concerning for pneumonia. Chest x-ray demonstrates worsening pulmonary edema. Persistent infiltrates concerning for inflammatory versus infectious process. CT chest today may require bronchoscopy. RECOMMENDATIONS: 1. Continue antibiotics, CT chest to evaluate lung parenchyma. 2 renal recommendations. 3. Cardiac recommendations 4. Aspiration precautions 5. Decrease FiO2 as tolerated PT evaluation Problems: TANI TOLEDO MD, [facility] Sep 10, 2017 11:02
[2017-09-10] MEDS: DIPHENHYD/MYLANTA/LIDO (PO SYG) PO SCH ×3 (12:52→20:23)
--- NOTE | 2017-09-10 12:55 | PN ---
DATE: 09/10/2017 SUBJECTIVE: No events overnight. No fevers. The patient is awake, feels better, looks comfortable . LABORATORY DATA: WBC 29.2, platelets 438, bands 8. BUN 49, creatinine 2.49. ANTIMICROBIALS: The patient is on: 1. Cancidas. 2. Vancomycin. 3. Meropenem. PHYSICAL EXAMINATION: GENERAL: Well-developed elderly woman in no distress. HEENT: Head atraumatic, normocephalic. Sclerae anicteric. Buccal mucosa dry. NECK: Supple. CHEST: Rise symmetrical. Breath sounds diminished to bases. HEART: S1, S2. ABDOMEN: Soft, bowel tones present. EXTREMITIES: Left lower extremity resolving edema. ASSESSMENT: 1. Acute hypoxemic respiratory failure secondary to fluid overload and possible healthcare-associat ed pneumonia. 2. Left lower extremity cellulitis, resolving. 3. Persistent leukocytosis, status post Neupogen. 4. Acute possibly on chronic kidney disease. 5. Diabetes. 6. Hypertension. PLAN: Patient remains stable. She is being followed by multiple consultants. Left lower extremity looks better. Continue present care. Follow chest x-rays. Dictated By: CODY VASQUEZ LPN MEDICAL ASSISTANT for [facility] Conf#: [id number] DID#: [id number]
--- NOTE | 2017-09-10 12:55 | PN ---
DATE: 09/10/2017 SUBJECTIVE: No events overnight. No fevers. The patient is awake, feels better, looks comfortable . LABORATORY DATA: WBC 29.2, platelets 438, bands 8. BUN 49, creatinine 2.49. ANTIMICROBIALS: The patient is on: 1. Cancidas. 2. Vancomycin. 3. Meropenem. PHYSICAL EXAMINATION: GENERAL: Well-developed elderly woman in no distress. HEENT: Head atraumatic, normocephalic. Sclerae anicteric. Buccal mucosa dry. NECK: Supple. CHEST: Rise symmetrical. Breath sounds diminished to bases. HEART: S1, S2. ABDOMEN: Soft, bowel tones present. EXTREMITIES: Left lower extremity resolving edema. ASSESSMENT: 1. Acute hypoxemic respiratory failure secondary to fluid overload and possible healthcare-associat ed pneumonia. 2. Left lower extremity cellulitis, resolving. 3. Persistent leukocytosis, status post Neupogen. 4. Acute possibly on chronic kidney disease. 5. Diabetes. 6. Hypertension. PLAN: Patient remains stable. She is being followed by multiple consultants. Left lower extremity looks better. Continue present care. Follow chest x-rays. Dictated By: CODY VASQUEZ [employer] REPAIRER for [facility] Conf#: [id number] DID#: [id number]
--- NOTE | 2017-09-10 12:55 | PN ---
DATE: 09/10/2017 SUBJECTIVE: No events overnight. No fevers. The patient is awake, feels better, looks comfortable . LABORATORY DATA: WBC 29.2, platelets 438, bands 8. BUN 49, creatinine 2.49. ANTIMICROBIALS: The patient is on: 1. Cancidas. 2. Vancomycin. 3. Meropenem. PHYSICAL EXAMINATION: GENERAL: Well-developed elderly woman in no distress. HEENT: Head atraumatic, normocephalic. Sclerae anicteric. Buccal mucosa dry. NECK: Supple. CHEST: Rise symmetrical. Breath sounds diminished to bases. HEART: S1, S2. ABDOMEN: Soft, bowel tones present. EXTREMITIES: Left lower extremity resolving edema. ASSESSMENT: 1. Acute hypoxemic respiratory failure secondary to fluid overload and possible healthcare-associat ed pneumonia. 2. Left lower extremity cellulitis, resolving. 3. Persistent leukocytosis, status post Neupogen. 4. Acute possibly on chronic kidney disease. 5. Diabetes. 6. Hypertension. PLAN: Patient remains stable. She is being followed by multiple consultants. Left lower extremity looks better. Continue present care. Follow chest x-rays. Dictated By: CODY VASQUEZ PAINTER AIRBRUSH for [facility] Conf#: [id number] DID#: [id number]
--- NOTE | 2017-09-10 13:12 | CONS ---
Date/Time of Note Date/Time of Note DATE: 09/10/17 TIME: 13:11 Assessment/Plan Assessment/Plan Additional Assessment/Plan Acute decompensated diastolic congestive heart failure Preserved ejection fraction Mild to moderate aortic valve stenosis Volume overload Sepsis Pneumonia Cellulitis Acute on chronic kidney disease -Patient plan for CT chest secondary to continue infiltrates on chest x-ray. Continue diuretics as per our nephrology colleagues. Antibiotics as per infectious disease. Blood pressure trend improving Consultation Date/Type/Reason Admit Date/Time Aug 24, 2017 at 19:05 Initial Consult Date 08/31/17 Type of Consultation: cv Referring Provider: GAI DUMONT 24 HR Interval Summary Free Text/Dictation Patient seen and examined, denies shortness of breath Exam/Review of Systems Vital Signs Vitals Vital Signs Date Time Temp Pulse Resp B/P Pulse Ox O2 Delivery O2 Flow Rate FiO2 09/10/17 12:59 90 20 Nasal Cannula 3.0 32 09/10/17 11:01 97.6 153/69 99 Intake and Output 09/09/17 09/09/17 09/10/17 15:00 23:00 07:00 Intake Total 680 ml Output Total 1100 ml Balance -420 ml Exam No apparent distress Constitutional: alert, obese, oriented Head: normocephalic Respiratory: other (Coarse breath sounds bilaterally, no wheezing) Cardiovascular: other (S1-S2 heard), regular rate and rhythm Gastrointestinal: bowel sounds, non-tender, soft Extremities: edema Results Result Diagram: 09/10/17 0654 09/10/17 0654 Results 24 hrs Laboratory Tests Test 09/09/17 17:55 09/09/17 21:05 09/10/17 06:54 09/10/17 07:53 Bedside Glucose 301 H 278 H 155 White Blood Count 29.2 H Red Blood Count 2.81 L Hemoglobin 7.9 L Hematocrit 25.0 L Mean Corpuscular Volume 89.0 Mean Corpuscular Hemoglobin 28.1 L Mean Corpuscular Hemoglobin Concent 31.6 L Red Cell Distribution Width 17.2 H Platelet Count 438 #H Mean Platelet Volume 10.8 H Neutrophils % Segmented Neutrophils % (Manual) 55 Band Neutrophils % (Manual) 8 H Lymphocytes % (Manual) 13 L Monocytes % (Manual) 15 H Eosinophils % Basophils % (Manual) 1 Metamyelocytes % (manual) 5 H Myelocytes % (Manual) 4 H Nucleated Red Blood Cells % 5 H Neutrophils # Neutrophils # (Manual) 16.7 H Band Neutrophils # 2.3 H Absolute Lymphocytes (Manual) 3.7 H Absolute Monocytes (Manual) 4.3 H Eosinophils # Basophils # (Manual) 0.2 H Metamyelocytes # 1.4 H Myelocytes # 1.1 H Platelet Estimate NORMAL Giant Platelets 1 H Polychromasia 2+ Anisocytosis 1+ Microcytosis 1+ Spherocytes 1+ Sodium Level 136 Potassium Level 3.5 Chloride Level 100 Carbon Dioxide Level 27 Anion Gap 13 Blood Urea Nitrogen 49 H Creatinine 2.49 H Glucose Level 155 Calcium Level 7.8 L Phosphorus Level 3.7 Magnesium Level 2.2 Test 09/10/17 12:20 Bedside Glucose 231 H Medications Medications Current Medications Ondansetron HCl (Zofran Inj) 4 mg Q6H PRN IV NAUSEA AND/OR VOMITING Last administered on 09/04/17 13:47; Admin Dose 4 MG; Start 08/25/17 at 08:00 Morphine Sulfate (morphine) 2 mg Q4H PRN IV PAIN Last administered on 09/01/17 20:06; Admin Dose 2 MG; Start 08/25/17 at 08:00 Loratadine (Claritin) 10 mg DAILY PO Last administered on 09/10/17 10:43; Admin Dose 10 MG; Start 08/25/17 at 09:00 Losartan Potassium (Cozaar) 50 mg DAILY PO Last administered on 09/10/17 10: 43; Admin Dose 50 MG; Start 08/25/17 at 09:00 Diagnostic Test (Pha) (Accu-Chek) 1 ea 02 XX Last administered on 09/06/17 02 :00; Admin Dose 1 EA; Start 08/26/17 at 02:00 Miscellaneous Information 1 ea NOTE XX ; Start 08/25/17 at 14:00 Glucose (Glutose) 15 gm Q15M PRN PO DECREASED GLUCOSE; Start 08/25/17 at 14:00 Glucose (Glutose) 22.5 gm Q15M PRN PO DECREASED GLUCOSE; Start 08/25/17 at 14: 00 Dextrose (D50w Syringe) 25 ml Q15M PRN IV DECREASED GLUCOSE Last administered on 09/05/17 12:07; Admin Dose 25 ML; Start 08/25/17 at 14:00 Dextrose (D50w Syringe) 50 ml Q15M PRN IV DECREASED GLUCOSE Last administered on 09/03/17 20:53; Admin Dose 50 ML; Start 08/25/17 at 14:00 Glucagon (Glucagen) 1 mg Q15M PRN IM DECREASED GLUCOSE; Start 08/25/17 at 14: 00 Glucose (Glutose) 15 gm Q15M PRN BUCCAL DECREASED GLUCOSE; Start 08/25/17 at 14:00 Acetaminophen (Tylenol Tab) 650 mg Q4H PRN PO PAIN AND OR ELEVATED TEMP Last administered on 08/26/17 17:06; Admin Dose 650 MG; Start 08/25/17 at 20:30 Miscellaneous Medication 10 ml 10 ml TID PO Last administered on 09/10/17 12: 52; Admin Dose 10 ML; Start 08/29/17 at 13:00 Leucovorin Calcium/Dextrose (Leucovorin Calcium Inj/D5W) 50 ml @ 200 mls/hr Q6H IV Last administered on 09/06/17 16:15; Admin Dose 200 MLS/HR; Start at 22:00; Status Future Hold Morphine Sulfate (morphine) 1 mg Q4H PRN IV LESS THAN 5/10 PAIN Last administered on 09/01/17 13:10; Admin Dose 1 MG; Start 08/30/17 at 20:00 Hydralazine HCl (Apresoline) 10 mg Q6H PRN IV ELEVATED SYSTOLIC BP Last administered on 09/10/17 05:41; Admin Dose 10 MG; Start 09/01/17 at 21:30 Silver Sulfadiazine (Thermazene 1% 400 Gm) 1 applic BID TOP Last administered on 09/10/17 10:45; Admin Dose 1 APPLIC; Start 09/04/17 at 14:00 Hydralazine HCl 10 mg 10 mg Q4H PRN IV ELEVATED BLOOD PRESSURE; Start at 01:00 Meropenem/Sodium Chloride 50 ml @ 100 mls/hr Q12 IVPB Last administered on 10:43; Admin Dose 100 MLS/HR; Start 09/05/17 at 23:00 Vancomycin HCl/ Sodium Chloride (Vancocin/NS) 250 ml @ 83.333 mls/ hr Q72H IVPB Last administered on 10/25/17at 13:34; Admin Dose 83.333 MLS/HR; Start at 13:00 Heparin Sodium (Porcine) (Heparin (5000 Units/0.5 ml)) 5,000 unit Q8 SC Last administered on 09/10/17 05:47; Admin Dose 5,000 UNIT; Start 09/06/17 at 22: 00 Epoetin Kashif (Epogen (Esrd)) 10,000 units TuThSa@17 SC Last administered on 16:50; Admin Dose 10,000 UNITS; Start 09/07/17 at 17:00 Amlodipine Besylate (Norvasc) 10 mg DAILY PO Last administered on 09/10/17 10 :44; Admin Dose 10 MG; Start 09/08/17 at 09:00 Insulin Glargine (Lantus) 13 unit DAILY@10 SC Last administered on 09/10/17 10:00; Admin Dose 13 UNIT; Start 09/08/17 at 10:00 Prednisone (Prednisone) 20 mg DAILY PO Last administered on 09/10/17 10:45; Admin Dose 20 MG; Start 09/09/17 at 09:00 Hydralazine HCl 25 mg 25 mg TID PO Last administered on 09/10/17 12:45; Admin Dose 25 MG; Start 09/08/17 at 13:00 Caspofungin/ Sodium Chloride (Cancidas/NS) 250 ml @ 250 mls/hr Q24H IVPB ; Start 09/10/17 at 15:30 Potassium Chloride (Klor-Con 20) 20 meq DAILY PO Last administered on 10:44; Admin Dose 20 MEQ; Start 09/10/17 at 09:00 Bisoprolol Fumarate (Zebeta) 15 mg DAILY PO ; Start 09/11/17 at 09:00 Miscellaneous Information (*Rx Drug Level Order Reminder*) 1 ONCE ONCE XX ; Start 09/11/17 at 12:00; Stop 09/11/17 at 12:01 Tj Marie DO Sep 10, 2017 13:12
--- NOTE | 2017-09-10 13:22 | CONS ---
Date/Time of Note Date/Time of Note DATE: 09/10/17 TIME: 13:21 Assessment/Plan Assessment/Plan Chief Complaint/Hosp Course 1. acute on-chronic kidney disease with no known baseline could be due to underlying sepsis/meds vs drug induced Cr improved significantly 2 Underlying acute tubular necrosis, possibly sepsis-induced due to cellulitis of the left lower extremity. 3 Likely underlying diabetic nephropathy, underlying hypertensive nephrosclerosis 4 pancytopenia could be due to sepsis, as well as drug-induced mthx/sulpha 5. Hyponatremia, resolved 6. Non gap Metabolic acidosis likely secondary to renal failure on bictra 7 Nephrotic range proteinuria 8 BLE atherosclerosis Problems: Additional Assessment/Plan 1. better DM type II control Consultation Date/Type/Reason Admit Date/Time Aug 24, 2017 at 19:05 Initial Consult Date 08/31/17 Type of Consultation: nephrology Reason for Consultation Dr Alarcon Referring Provider: GIA DUMONT 24 HR Interval Summary Constitutional: requiring O2 Exam/Review of Systems Vital Signs Vitals Vital Signs Date Time Temp Pulse Resp B/P Pulse Ox O2 Delivery O2 Flow Rate FiO2 09/10/17 12:59 90 20 Nasal Cannula 3.0 32 09/10/17 11:01 97.6 153/69 99 Intake and Output 09/09/17 09/09/17 09/10/17 15:00 23:00 07:00 Intake Total 680 ml Output Total 1100 ml Balance -420 ml Exam Constitutional: alert, oriented Psych: no complaints Head: normocephalic Gastrointestinal: soft Musculoskeletal: muscle weakness, swelling (lower extremities) Results Result Diagram: 09/10/17 0654 09/10/17 0654 Results 24 hrs Laboratory Tests Test 09/09/17 17:55 09/09/17 21:05 09/10/17 06:54 09/10/17 07:53 Bedside Glucose 301 H 278 H 155 White Blood Count 29.2 H Red Blood Count 2.81 L Hemoglobin 7.9 L Hematocrit 25.0 L Mean Corpuscular Volume 89.0 Mean Corpuscular Hemoglobin 28.1 L Mean Corpuscular Hemoglobin Concent 31.6 L Red Cell Distribution Width 17.2 H Platelet Count 438 #H Mean Platelet Volume 10.8 H Neutrophils % Segmented Neutrophils % (Manual) 55 Band Neutrophils % (Manual) 8 H Lymphocytes % (Manual) 13 L Monocytes % (Manual) 15 H Eosinophils % Basophils % (Manual) 1 Metamyelocytes % (manual) 5 H Myelocytes % (Manual) 4 H Nucleated Red Blood Cells % 5 H Neutrophils # Neutrophils # (Manual) 16.7 H Band Neutrophils # 2.3 H Absolute Lymphocytes (Manual) 3.7 H Absolute Monocytes (Manual) 4.3 H Eosinophils # Basophils # (Manual) 0.2 H Metamyelocytes # 1.4 H Myelocytes # 1.1 H Platelet Estimate NORMAL Giant Platelets 1 H Polychromasia 2+ Anisocytosis 1+ Microcytosis 1+ Spherocytes 1+ Sodium Level 136 Potassium Level 3.5 Chloride Level 100 Carbon Dioxide Level 27 Anion Gap 13 Blood Urea Nitrogen 49 H Creatinine 2.49 H Glucose Level 155 Calcium Level 7.8 L Phosphorus Level 3.7 Magnesium Level 2.2 Test 09/10/17 12:20 Bedside Glucose 231 H Medications Medications Current Medications Ondansetron HCl (Zofran Inj) 4 mg Q6H PRN IV NAUSEA AND/OR VOMITING Last administered on 09/04/17 13:47; Admin Dose 4 MG; Start 08/25/17 at 08:00 Morphine Sulfate (morphine) 2 mg Q4H PRN IV PAIN Last administered on 09/01/17 20:06; Admin Dose 2 MG; Start 08/25/17 at 08:00 Loratadine (Claritin) 10 mg DAILY PO Last administered on 09/10/17 10:43; Admin Dose 10 MG; Start 08/25/17 at 09:00 Losartan Potassium (Cozaar) 50 mg DAILY PO Last administered on 09/10/17 10: 43; Admin Dose 50 MG; Start 08/25/17 at 09:00 Diagnostic Test (Pha) (Accu-Chek) 1 ea 02 XX Last administered on 09/06/17 02 :00; Admin Dose 1 EA; Start 08/26/17 at 02:00 Miscellaneous Information 1 ea NOTE XX ; Start 08/25/17 at 14:00 Glucose (Glutose) 15 gm Q15M PRN PO DECREASED GLUCOSE; Start 08/25/17 at 14:00 Glucose (Glutose) 22.5 gm Q15M PRN PO DECREASED GLUCOSE; Start 08/25/17 at 14: 00 Dextrose (D50w Syringe) 25 ml Q15M PRN IV DECREASED GLUCOSE Last administered on 09/05/17 12:07; Admin Dose 25 ML; Start 08/25/17 at 14:00 Dextrose (D50w Syringe) 50 ml Q15M PRN IV DECREASED GLUCOSE Last administered on 09/03/17 20:53; Admin Dose 50 ML; Start 08/25/17 at 14:00 Glucagon (Glucagen) 1 mg Q15M PRN IM DECREASED GLUCOSE; Start 08/25/17 at 14: 00 Glucose (Glutose) 15 gm Q15M PRN BUCCAL DECREASED GLUCOSE; Start 08/25/17 at 14:00 Acetaminophen (Tylenol Tab) 650 mg Q4H PRN PO PAIN AND OR ELEVATED TEMP Last administered on 08/26/17 17:06; Admin Dose 650 MG; Start 08/25/17 at 20:30 Miscellaneous Medication 10 ml 10 ml TID PO Last administered on 09/10/17 12: 52; Admin Dose 10 ML; Start 08/29/17 at 13:00 Leucovorin Calcium/Dextrose (Leucovorin Calcium Inj/D5W) 50 ml @ 200 mls/hr Q6H IV Last administered on 09/06/17 16:15; Admin Dose 200 MLS/HR; Start at 22:00; Status Future Hold Morphine Sulfate (morphine) 1 mg Q4H PRN IV LESS THAN 5/10 PAIN Last administered on 09/01/17 13:10; Admin Dose 1 MG; Start 08/30/17 at 20:00 Hydralazine HCl (Apresoline) 10 mg Q6H PRN IV ELEVATED SYSTOLIC BP Last administered on 09/10/17 05:41; Admin Dose 10 MG; Start 09/01/17 at 21:30 Silver Sulfadiazine (Thermazene 1% 400 Gm) 1 applic BID TOP Last administered on 09/10/17 10:45; Admin Dose 1 APPLIC; Start 09/04/17 at 14:00 Hydralazine HCl 10 mg 10 mg Q4H PRN IV ELEVATED BLOOD PRESSURE; Start at 01:00 Meropenem/Sodium Chloride 50 ml @ 100 mls/hr Q12 IVPB Last administered on 10:43; Admin Dose 100 MLS/HR; Start 09/05/17 at 23:00 Vancomycin HCl/ Sodium Chloride (Vancocin/NS) 250 ml @ 83.333 mls/ hr Q72H IVPB Last administered on 09/08/17 13:34; Admin Dose 83.333 MLS/HR; Start at 13:00 Heparin Sodium (Porcine) (Heparin (5000 Units/0.5 ml)) 5,000 unit Q8 SC Last administered on 09/10/17 05:47; Admin Dose 5,000 UNIT; Start 09/06/17 at 22: 00 Epoetin Kashif (Epogen (Esrd)) 10,000 units TuThSa@17 SC Last administered on 16:50; Admin Dose 10,000 UNITS; Start 09/07/17 at 17:00 Amlodipine Besylate (Norvasc) 10 mg DAILY PO Last administered on 09/10/17 10 :44; Admin Dose 10 MG; Start 09/08/17 at 09:00 Insulin Glargine (Lantus) 13 unit DAILY@10 SC Last administered on 09/10/17 10:00; Admin Dose 13 UNIT; Start 09/08/17 at 10:00 Prednisone (Prednisone) 20 mg DAILY PO Last administered on 09/10/17 10:45; Admin Dose 20 MG; Start 09/09/17 at 09:00 Hydralazine HCl 25 mg 25 mg TID PO Last administered on 09/10/17 12:45; Admin Dose 25 MG; Start 09/08/17 at 13:00 Caspofungin/ Sodium Chloride (Cancidas/NS) 250 ml @ 250 mls/hr Q24H IVPB ; Start 09/10/17 at 15:30 Potassium Chloride (Klor-Con 20) 20 meq DAILY PO Last administered on 10:44; Admin Dose 20 MEQ; Start 09/10/17 at 09:00 Bisoprolol Fumarate (Zebeta) 15 mg DAILY PO ; Start 09/11/17 at 09:00 Miscellaneous Information (*Rx Drug Level Order Reminder*) 1 ONCE ONCE XX ; Start 09/11/17 at 12:00; Stop 09/11/17 at 12:01 JUAN CARLOS THURMAN Sep 10, 2017 13:22
--- NOTE | 2017-09-10 13:45 | PN ---
Date/Time of Note Date/Time of Note DATE: 09/10/17 TIME: 13:44 Assessment/Plan VTE Prophylaxis VTE Prophylaxis Intervention: heparin Lines/Catheters IV Catheter Type (from Nrs): Saline Lock Urinary Cath still in place: Yes Reason Cath still needed: terminal illness/intractable pain Assessment/Plan Chief Complaint/Hosp Course Patient is a 61-year-old female with a past medical history of hypertension, diabetes, CKD who presented for left lower extremity cellulitis. Assessment/Plan #shortness of breath. Bilateral Pneumonia, resolving - Patient found to have b/l PNA on chest xray - On antibiotics and changed to Meropenem per ID - Pulmonology consultation placed and appreciated recommendations, doubts PNA process - On Neb treatments -tapering steroids -? other etiology, CT chest pending #pulmonary edema - likely etiology given elevated BNP and xray -continue lasix, careful given Cr -echo noted #acute on chronic diastolic congestive heart failure -continue lasix -cards recs appreciated -echo noted #. Left lower extremity cellulitis - ID and Surgery on board. Recommendations appreciated - Antibiotic per ID - CT LE showed cellulitis and no evidence of osteomyelitis. Xray LE also performed and no osteomyelitis appreciated. -gen surg/vascular surg do not feel any acute intervention is needed -wraps #. Mucositis 2/2 methotrexate use- improving - diphen/lido/mal oral solution ordered. Morphine if pain remain intolerable for PO intake - Tolerating soft mech diet #. Pancytopenia- improving -now leukocytosis, possible due to filgrastim per heme/onc - No transfusions needed today - Hematology on board and recommendations appreciated. - s/p multiple blood transfusions and plt transfusions. #leukocytosis -profound, ? steroids combined with neupogen. -downtrending #. Neutropenia- resolved - WBC downtrending now <30 and Neupogen no longer on board - Will continue to monitor - Heme on board and recommendations appreciated #. BK vs BK on CKD - Nephrology on board and recommendations appreciated. - Cr elevated, but lower than admission, likely chronic component - Monitor UOP - HIV negative, KASSY negative #. Hypokalemia - stable #. Eosinophilia - normalized after d/c sulfasalazine and mtx #. Vascular insufficiency - Vascular surgery on board and recommendations appreciated. No current vascular intervention as the patient has not developed any gangrene or ulcers - Will need to follow up as outpatient due to LE atherosclerosis DISPO: CT chest pending, caspofungin started per ID. Will need to finalize abx per ID, brendan, watch white count, when showing signs of stability, DC to SNF once on stable dose of lasix oral. 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 Problems: Subjective 24 Hr Interval Summary Free Text/Dictation still has difficulty breathing Exam/Review of Systems Vital Signs Vitals Vital Signs Date Time Temp Pulse Resp B/P Pulse Ox O2 Delivery O2 Flow Rate FiO2 09/10/17 12:59 90 20 Nasal Cannula 3.0 32 09/10/17 11:01 97.6 153/69 99 Intake and Output 09/09/17 09/09/17 09/10/17 15:00 23:00 07:00 Intake Total 680 ml Output Total 1100 ml Balance -420 ml Exam Physical exam General: Patient is laying in bed and responds appropriately Mentation: Patient is alert and oriented 4, Head: Normocephalic atraumatic Eyes: EOMI, pupils reactive to light Neck: Supple, nontender, midline Respiratory: coarse to auscultation bilaterally, with wheezing Cardiovascular: regular rate, no obvious murmurs Gastrointestinal: non-tender to palpation, bowel sounds heard. Neurological: Moves all extremities spontaneously Skin: left leg erythematous, mild tenderness. Results Result Diagram: 09/10/17 0654 09/10/17 0654 Results 24 hrs Laboratory Tests Test 09/09/17 17:55 09/09/17 21:05 09/10/17 06:54 09/10/17 07:53 Bedside Glucose 301 H 278 H 155 White Blood Count 29.2 H Red Blood Count 2.81 L Hemoglobin 7.9 L Hematocrit 25.0 L Mean Corpuscular Volume 89.0 Mean Corpuscular Hemoglobin 28.1 L Mean Corpuscular Hemoglobin Concent 31.6 L Red Cell Distribution Width 17.2 H Platelet Count 438 #H Mean Platelet Volume 10.8 H Neutrophils % Segmented Neutrophils % (Manual) 55 Band Neutrophils % (Manual) 8 H Lymphocytes % (Manual) 13 L Monocytes % (Manual) 15 H Eosinophils % Basophils % (Manual) 1 Metamyelocytes % (manual) 5 H Myelocytes % (Manual) 4 H Nucleated Red Blood Cells % 5 H Neutrophils # Neutrophils # (Manual) 16.7 H Band Neutrophils # 2.3 H Absolute Lymphocytes (Manual) 3.7 H Absolute Monocytes (Manual) 4.3 H Eosinophils # Basophils # (Manual) 0.2 H Metamyelocytes # 1.4 H Myelocytes # 1.1 H Platelet Estimate NORMAL Giant Platelets 1 H Polychromasia 2+ Anisocytosis 1+ Microcytosis 1+ Spherocytes 1+ Sodium Level 136 Potassium Level 3.5 Chloride Level 100 Carbon Dioxide Level 27 Anion Gap 13 Blood Urea Nitrogen 49 H Creatinine 2.49 H Glucose Level 155 Calcium Level 7.8 L Phosphorus Level 3.7 Magnesium Level 2.2 Test 09/10/17 12:20 Bedside Glucose 231 H Medications Medications Current Medications Ondansetron HCl (Zofran Inj) 4 mg Q6H PRN IV NAUSEA AND/OR VOMITING Last administered on 09/04/17 13:47; Admin Dose 4 MG; Start 08/25/17 at 08:00 Morphine Sulfate (morphine) 2 mg Q4H PRN IV PAIN Last administered on 09/01/17 20:06; Admin Dose 2 MG; Start 08/25/17 at 08:00 Loratadine (Claritin) 10 mg DAILY PO Last administered on 09/10/17 10:43; Admin Dose 10 MG; Start 08/25/17 at 09:00 Losartan Potassium (Cozaar) 50 mg DAILY PO Last administered on 09/10/17 10: 43; Admin Dose 50 MG; Start 08/25/17 at 09:00 Miscellaneous Information 1 ea NOTE XX ; Start 08/25/17 at 14:00 Glucose (Glutose) 15 gm Q15M PRN PO DECREASED GLUCOSE; Start 08/25/17 at 14:00 Glucose (Glutose) 22.5 gm Q15M PRN PO DECREASED GLUCOSE; Start 08/25/17 at 14: 00 Dextrose (D50w Syringe) 25 ml Q15M PRN IV DECREASED GLUCOSE Last administered on 09/05/17 12:07; Admin Dose 25 ML; Start 08/25/17 at 14:00 Dextrose (D50w Syringe) 50 ml Q15M PRN IV DECREASED GLUCOSE Last administered on 09/03/17 20:53; Admin Dose 50 ML; Start 08/25/17 at 14:00 Glucagon (Glucagen) 1 mg Q15M PRN IM DECREASED GLUCOSE; Start 08/25/17 at 14: 00 Glucose (Glutose) 15 gm Q15M PRN BUCCAL DECREASED GLUCOSE; Start 08/25/17 at 14:00 Acetaminophen (Tylenol Tab) 650 mg Q4H PRN PO PAIN AND OR ELEVATED TEMP Last administered on 08/26/17 17:06; Admin Dose 650 MG; Start 08/25/17 at 20:30 Miscellaneous Medication 10 ml 10 ml TID PO Last administered on 09/10/17 12: 52; Admin Dose 10 ML; Start 08/29/17 at 13:00 Leucovorin Calcium/Dextrose (Leucovorin Calcium Inj/D5W) 50 ml @ 200 mls/hr Q6H IV Last administered on 09/06/17 16:15; Admin Dose 200 MLS/HR; Start at 22:00; Status Future Hold Morphine Sulfate (morphine) 1 mg Q4H PRN IV LESS THAN 5/10 PAIN Last administered on 09/01/17 13:10; Admin Dose 1 MG; Start 08/30/17 at 20:00 Hydralazine HCl (Apresoline) 10 mg Q6H PRN IV ELEVATED SYSTOLIC BP Last administered on 09/10/17 05:41; Admin Dose 10 MG; Start 09/01/17 at 21:30 Silver Sulfadiazine (Thermazene 1% 400 Gm) 1 applic BID TOP Last administered on 09/10/17 10:45; Admin Dose 1 APPLIC; Start 09/04/17 at 14:00 Hydralazine HCl 10 mg 10 mg Q4H PRN IV ELEVATED BLOOD PRESSURE; Start at 01:00 Meropenem/Sodium Chloride 50 ml @ 100 mls/hr Q12 IVPB Last administered on 10:43; Admin Dose 100 MLS/HR; Start 09/05/17 at 23:00 Vancomycin HCl/ Sodium Chloride (Vancocin/NS) 250 ml @ 83.333 mls/ hr Q72H IVPB Last administered on 09/08/17 13:34; Admin Dose 83.333 MLS/HR; Start at 13:00 Heparin Sodium (Porcine) (Heparin (5000 Units/0.5 ml)) 5,000 unit Q8 SC Last administered on 09/10/17 05:47; Admin Dose 5,000 UNIT; Start 09/06/17 at 22: 00 Epoetin Kashif (Epogen (Esrd)) 10,000 units TuThSa@17 SC Last administered on 16:50; Admin Dose 10,000 UNITS; Start 09/07/17 at 17:00 Amlodipine Besylate (Norvasc) 10 mg DAILY PO Last administered on 09/10/17 10 :44; Admin Dose 10 MG; Start 09/08/17 at 09:00 Prednisone (Prednisone) 20 mg DAILY PO Last administered on 09/10/17 10:45; Admin Dose 20 MG; Start 09/09/17 at 09:00 Hydralazine HCl 25 mg 25 mg TID PO Last administered on 09/10/17 12:45; Admin Dose 25 MG; Start 09/08/17 at 13:00 Caspofungin/ Sodium Chloride (Cancidas/NS) 250 ml @ 250 mls/hr Q24H IVPB ; Start 09/10/17 at 15:30 Potassium Chloride (Klor-Con 20) 20 meq DAILY PO Last administered on 10:44; Admin Dose 20 MEQ; Start 09/10/17 at 09:00 Bisoprolol Fumarate (Zebeta) 15 mg DAILY PO ; Start 09/11/17 at 09:00 Miscellaneous Information (*Rx Drug Level Order Reminder*) 1 ONCE ONCE XX ; Start 09/11/17 at 12:00; Stop 09/11/17 at 12:01 Insulin Glargine (Lantus) 18 unit QHS SC ; Start 09/10/17 at 21:00 GIA DUMONT Sep 10, 2017 13:45
--- NOTE | 2017-09-10 14:59 | RADRPT ---
PROCEDURE: CT Chest without contrast. CLINICAL INDICATION: Hypoxia, respiratory failure TECHNIQUE: CT of the chest was performed on a multi-detector scanner without IV contrast. Coronal and sagittal images were reformatted from the axial data set. One or more of the following dose re duction techniques were used: automated exposure control, adjustment of the mA and/or kV according t o patient size, use of iterative reconstruction technique. CTDI = 16.51 mGy. DLP = 653.56 mGy-cm. COMPARISON: Chest x-ray, 09/09/2017 FINDINGS: Bilateral perihilar pulmonary ground-glass opacity/consolidation and interlobular septal thickening is identified. There are moderate bilateral pleural effusions. No pneumothorax is identified. The central tracheobronchial tree is clear. No gross evidence of pulmonary nodule or mass is identified. There is mild cardiomegaly, without significant pericardial fluid. Coronary arterial and aortic at herosclerotic calcifications are present. There is no thoracic aortic aneurysm. No mediastinal, hi lar, axillary or supraclavicular lymphadenopathy is identified. Visualized portions of the upper abdomen demonstrate no acute abnormality. The surrounding osseous s tructures are remarkable for degenerative enthesopathy of the spine. No osteolytic or osteoblastic lesion is detected. Anasarca is noted. IMPRESSION: 1. Bilateral perihilar pulmonary ground-glass opacity/consolidation and septal thickening is seen, suggestive of pulmonary edema, though superimposed pneumonia is not excluded. 2. There are moderate bilateral pleural effusions. 3. Mild cardiomegaly is noted. Coronary arterial and aortic atherosclerotic calcifications are pres ent. 4. Anasarca is noted. RPTAT: AAQQ .Johan Galdamez MD, MD Date Time Electronically viewed and signed by .Johan Galdamez MD, MD on 09/10/2017 14:59 .R/
[2017-09-10] MEDS: CASPOFUNGIN 50 MG in SOD CHLORIDE 0.9% 250 ML IVPB SCH (16:15)
[2017-09-10] MEDS ORDERED: INSULIN REGULAR, HUMAN 100 UNIT/1 ML 3ML VIAL SC SCH (17:25)
[2017-09-10] MEDS ORDERED: INSULIN GLARGINE [LANtus] 3 ML PEN SC SCH (21:00)
[2017-09-11] VITALS (10 sets, daily range): BP systolic 134–147; BP diastolic 60–76; PULSE 77–90; RESP 16–20
--- NOTE | 2017-09-11 00:25 | PN ---
Date/Time of Note Date/Time of Note DATE: 09/10/17 TIME: 19:13 Assessment/Plan Lines/Catheters IV Catheter Type (from [facility]): Saline Lock Reina in Place (from [facility]): Yes Assessment/Plan Chief Complaint/Hosp Course 1. Left lower extremity cellulitis and edema with history of diabetes;CT lower extremity without abscess -continue supportive measures -elevate above heart level 2. Leukocytosis, without fevers, with history of leukopenia: on prednisone -trend -abx per ID 3. Diabetes -Nutrition medication optimization -Encourage weight loss 4. Hypertension -Nutrition medication optimization -Encourage weight loss 5. Chronic kidney disease: cr stable -Judicious fluid management -Avoid nephrotoxic agents 6. Bilateral ground glass changes on CT -defer to pulm -pulm toilette 7. Hypoalbuminemia with hypocalcemia -Nutritional optimization 8. Anemia: no acute bleed noted -monitor -transfuse as needed 9. Electrolyte imbalance -optimize lytes Thank you, Late entry 09/10 Problems: Subjective [address] chest noted. No leg pain. Improved mobility. Swelling much improved. Sob with exertion, with readily audible wheezing. Leukocytosis. No fevers, chills, cp, palpitations, walsh, dizziness, n/v/d/dysuria. Exam/Review of Systems Vital Signs Vitals Vital Signs Date Time Temp Pulse Resp B/P Pulse Ox O2 Delivery O2 Flow Rate FiO2 09/10/17 23:05 98.0 82 161/71 97 09/10/17 20:13 20 Nasal Cannula 3.0 30 Intake and Output 09/10/17 09/10/17 09/11/17 15:00 23:00 07:00 Intake Total 700 ml Output Total 1400 ml Balance -700 ml Exam Free Text/Dictation Constitutional: obese, other (Awake), No distress Psych: nl mood/affect, No anxiety Head: atraumatic, normocephalic Eyes: EOMI, PERRL, nl conjunctiva, No icteric ENMT: mucosa pink and dry, nl external ears & nose, nl lips & teeth Neck: non-tender, supple, No jvd Respiratory: sob w exertion, wheezing. No congested cough, No labored breathing, No wheezing Cardiovascular: edema (Left lower extremity- improving), regular rate and rhythm Gastrointestinal: non-tender, soft, No rebound or guarding Musculoskeletal: joint tenderness (Left ankle), No nl extremities to inspection Extremities: edema, normal pulses, pitting Left pedal edema +2 (much improved) , tenderness, No calf tenderness Neurological: nl mental status, nl strength Skin: rash or lesions (Left lower extremity-discoloration improved, flaky skin) , No diaphoresis, No nl turgor Lymph: nl lymph nodes, nontender Results Result Diagram: 09/10/17 0654 09/10/17 0654 BOB FUNEZ MD Sep 11, 2017 00:25
[2017-09-11] MEDS: ALBUTEROL/IPRATROPIUM (NEB) 3 ML AMP HHN SCH ×6 (01:18→20:41)
[2017-09-11] MEDS: hydrALAzine 20 MG INJ IV PRN (01:24)
[2017-09-11] MEDS: FUROSEMIDE 40 MG INJ IV SCH ×2 (05:50→17:18)
[2017-09-11] MEDS: HEPARIN 5,000 UNIT/0.5 ML VIAL SC SCH ×3 (06:01→21:48)
[2017-09-11] MEDS: INSULIN ASPART [NOVOLOG] 3 ML PEN SC SCH ×5 (07:25→22:07)
[2017-09-11] MEDS: ACCU-CHEK XX SCH ×4 (07:25→22:00)
[2017-09-11] MEDS: MEROPENEM 500MG/50 ML (PMX) 50 ML IVPB SCH ×2 (08:50→21:35)
[2017-09-11] MEDS: DIPHENHYD/MYLANTA/LIDO (PO SYG) PO SCH ×3 (08:50→21:35)
[2017-09-11] MEDS: BISOPROLOL 5 MG TAB PO SCH (08:51)
[2017-09-11] MEDS: POTASSIUM CHLORIDE (SR) 20 MEQ TAB PO SCH (08:52)
[2017-09-11] MEDS: LORATADINE 10 MG TAB PO SCH (08:52)
[2017-09-11] MEDS: AMLODIPINE 10 MG TAB PO SCH (08:53)
[2017-09-11] MEDS: LOSARTAN 50 MG TAB PO SCH (08:53)
[2017-09-11] MEDS ORDERED: predniSONE 10 MG TAB PO SCH (09:00)
[2017-09-11] MEDS: SILVER SULFADIAZINE 1% 400 GM CR TOP SCH ×2 (11:43→22:08)
--- NOTE | 2017-09-11 11:56 | CONS ---
Date/Time of Note Date/Time of Note DATE: 09/11/17 TIME: 11:54 Consult Date/Type/Reason Admit Date/Time Aug 24, 2017 at 19:05 Initial Consult Date 08/31/17 Type of Consultation: Pulmonary Ordering Provider: GIA DUMONT Subjective Patient appears comfortable this morning. No acute distress. Objective Vital Signs Date Time Temp Pulse Resp B/P Pulse Ox O2 Delivery O2 Flow Rate FiO2 09/11/17 11:30 97.6 78 16 134/62 98 09/11/17 09:31 Nasal Cannula 3.0 09/10/17 20:13 30 Intake and Output 09/10/17 09/10/17 09/11/17 15:00 23:00 07:00 Intake Total 750 ml 250 ml Output Total 1400 ml 1300 ml Balance -650 ml -1050 ml Exam GENERAL: Elderly appearing lady comfortable at rest no acute distress VITAL SIGNS: per chart NECK: Supple. No JVD or lymphadenopathy. CARDIAC EXAM: S1, S2. No added sounds or murmurs. CHEST: Mr. entry bilaterally no rales or wheezes ABDOMEN: Soft, nontender. No guarding or rebound. EXTREMITIES: No cyanosis, clubbing or edema. NEUROLOGIC: Generalized weakness. No focal deficits. Results/Medications Result Diagram: 09/11/17 0557 09/11/17 0557 Results 24 hrs Laboratory Tests Test 09/10/17 12:20 09/10/17 17:43 09/10/17 20:21 09/11/17 01:28 Bedside Glucose 231 H 188 197 108 Test 09/11/17 05:56 09/11/17 05:57 09/11/17 08:04 09/11/17 08:32 Prothrombin Time 13.9 Prothrombin Time Ratio 1.1 INR International Normalized Ratio 1.07 Activated Partial Thromboplast Time 28.7 White Blood Count 21.7 #H Red Blood Count 2.59 L Hemoglobin 7.5 L Hematocrit 23.5 L Mean Corpuscular Volume 90.7 Mean Corpuscular Hemoglobin 29.0 Mean Corpuscular Hemoglobin Concent 31.9 L Red Cell Distribution Width 17.4 H Platelet Count 481 H Mean Platelet Volume 10.5 H Neutrophils % Segmented Neutrophils % (Manual) 65 Band Neutrophils % (Manual) 2 Lymphocytes % Lymphocytes % (Manual) 10 L Monocytes % Monocytes % (Manual) 13 H Eosinophils % Basophils % Metamyelocytes % (manual) 3 H Myelocytes % (Manual) 7 H Nucleated Red Blood Cells % 2 H Neutrophils # Neutrophils # (Manual) 14.2 H Band Neutrophils # 0.4 Absolute Lymphocytes (Manual) 2.1 Lymphocytes # Monocytes # Absolute Monocytes (Manual) 2.8 H Eosinophils # Basophils # Metamyelocytes # 0.6 H Myelocytes # 1.5 H Nucleated Red Blood Cells # Platelet Estimate NORMAL Giant Platelets 2 H Polychromasia 2+ Anisocytosis 1+ Microcytosis 1+ Absolute Reticulocyte Count 0.078 Percent Reticulocyte Count 3.0 H Sodium Level 136 Potassium Level 3.9 Chloride Level 100 Carbon Dioxide Level 27 Anion Gap 13 Blood Urea Nitrogen 45 H Creatinine 2.46 H Glucose Level 58 #L Hemoglobin A1c 5.8 Calcium Level 8.0 L Phosphorus Level 3.7 Magnesium Level 2.2 Bedside Glucose 56 L 63 L Test 09/11/17 10:05 09/11/17 11:38 Bedside Glucose 118 143 Medications Current Medications Ondansetron HCl (Zofran Inj) 4 mg Q6H PRN IV NAUSEA AND/OR VOMITING Last administered on 09/04/17 13:47; Admin Dose 4 MG; Start 08/25/17 at 08:00 Morphine Sulfate (morphine) 2 mg Q4H PRN IV PAIN Last administered on 09/01/17 20:06; Admin Dose 2 MG; Start 08/25/17 at 08:00 Loratadine (Claritin) 10 mg DAILY PO Last administered on 09/11/17 08:52; Admin Dose 10 MG; Start 08/25/17 at 09:00 Losartan Potassium (Cozaar) 50 mg DAILY PO Last administered on 09/11/17 08: 53; Admin Dose 50 MG; Start 08/25/17 at 09:00 Miscellaneous Information 1 ea NOTE XX ; Start 08/25/17 at 14:00 Glucose (Glutose) 15 gm Q15M PRN PO DECREASED GLUCOSE; Start 08/25/17 at 14:00 Glucose (Glutose) 22.5 gm Q15M PRN PO DECREASED GLUCOSE; Start 08/25/17 at 14: 00 Dextrose (D50w Syringe) 25 ml Q15M PRN IV DECREASED GLUCOSE Last administered on 09/05/17 12:07; Admin Dose 25 ML; Start 08/25/17 at 14:00 Dextrose (D50w Syringe) 50 ml Q15M PRN IV DECREASED GLUCOSE Last administered on 09/03/17 20:53; Admin Dose 50 ML; Start 08/25/17 at 14:00 Glucagon (Glucagen) 1 mg Q15M PRN IM DECREASED GLUCOSE; Start 08/25/17 at 14: 00 Glucose (Glutose) 15 gm Q15M PRN BUCCAL DECREASED GLUCOSE; Start 08/25/17 at 14:00 Acetaminophen (Tylenol Tab) 650 mg Q4H PRN PO PAIN AND OR ELEVATED TEMP Last administered on 08/26/17 17:06; Admin Dose 650 MG; Start 08/25/17 at 20:30 Miscellaneous Medication 10 ml 10 ml TID PO Last administered on 09/11/17 08: 50; Admin Dose 10 ML; Start 08/29/17 at 13:00 Leucovorin Calcium/Dextrose (Leucovorin Calcium Inj/D5W) 50 ml @ 200 mls/hr Q6H IV Last administered on 09/06/17 16:15; Admin Dose 200 MLS/HR; Start at 22:00; Status Future Hold Morphine Sulfate (morphine) 1 mg Q4H PRN IV LESS THAN 5/10 PAIN Last administered on 09/01/17 13:10; Admin Dose 1 MG; Start 08/30/17 at 20:00 Hydralazine HCl (Apresoline) 10 mg Q6H PRN IV ELEVATED SYSTOLIC BP Last administered on 09/11/17 01:24; Admin Dose 10 MG; Start 09/01/17 at 21:30 Silver Sulfadiazine (Thermazene 1% 400 Gm) 1 applic BID TOP Last administered on 09/11/17 11:43; Admin Dose 1 APPLIC; Start 09/04/17 at 14:00 Hydralazine HCl 10 mg 10 mg Q4H PRN IV ELEVATED BLOOD PRESSURE; Start at 01:00 Meropenem/Sodium Chloride 50 ml @ 100 mls/hr Q12 IVPB Last administered on 08:50; Admin Dose 100 MLS/HR; Start 09/05/17 at 23:00 Vancomycin HCl/ Sodium Chloride (Vancocin/NS) 250 ml @ 83.333 mls/ hr Q72H IVPB Last administered on 09/08/17 13:34; Admin Dose 83.333 MLS/HR; Start at 13:00 Heparin Sodium (Porcine) (Heparin (5000 Units/0.5 ml)) 5,000 unit Q8 SC Last administered on 09/11/17 06:01; Admin Dose 5,000 UNIT; Start 09/06/17 at 22: 00 Epoetin Kashif (Epogen (Esrd)) 10,000 units TuThSa@17 SC Last administered on 16:50; Admin Dose 10,000 UNITS; Start 09/07/17 at 17:00 Amlodipine Besylate (Norvasc) 10 mg DAILY PO Last administered on 09/11/17 08 :53; Admin Dose 10 MG; Start 09/08/17 at 09:00 Hydralazine HCl 25 mg 25 mg TID PO Last administered on 09/11/17 08:52; Admin Dose 25 MG; Start 09/08/17 at 13:00 Caspofungin/ Sodium Chloride (Cancidas/NS) 250 ml @ 250 mls/hr Q24H IVPB Last administered on 09/10/17 16:15; Admin Dose 250 MLS/HR; Start 09/10/17 at 15: 30 Potassium Chloride (Klor-Con 20) 20 meq DAILY PO Last administered on 08:52; Admin Dose 20 MEQ; Start 09/10/17 at 09:00 Bisoprolol Fumarate (Zebeta) 15 mg DAILY PO Last administered on 09/11/17 08: 51; Admin Dose 15 MG; Start 09/11/17 at 09:00 Miscellaneous Information (*Rx Drug Level Order Reminder*) 1 ONCE ONCE XX ; Start 09/11/17 at 12:00; Stop 09/11/17 at 12:01 Insulin Glargine (Lantus) 13 unit QHS SC ; Start 09/11/17 at 21:00 Assessment/Plan Chief Complaint/Hosp Course IMPRESSION: Hypoxemic respiratory insufficiency in the setting of hypertension, chronic kidney disease and volume overload. Persistent leukocytosis concerning for pneumonia. Chest x-ray demonstrates worsening pulmonary edema. CT chest demonstrates ongoing pleural effusions and bilateral infiltrates and/or pulmonary edema Persistent infiltrates concerning for inflammatory versus infectious process. RECOMMENDATIONS: 1. Continue antibiotics, findings noted. 2 renal recommendations. Would increase diuresis if tolerated. If radiographic improvement not achieved by increasing diuretics patient may require thoracentesis and/or bronchoscopy. 3. Cardiac recommendations 4. Aspiration precautions 5. Decrease FiO2 as tolerated PT evaluation Problems: TANI TOLEDO MD, [facility] Sep 11, 2017 11:56
--- NOTE | 2017-09-11 12:28 | CONS ---
Date/Time of Note Date/Time of Note DATE: 09/11/17 TIME: 12:16 Assessment/Plan Assessment/Plan Chief Complaint/Hosp Course ID PROGRESS NOTE CURRENT ABX: DAY # 18 => Vanco IV + Merrem + Cancidas 24H INTERVAL SUMMARY * A/A/O, responsive, overweight, no fevers, VSS * On ABX for severe LLEXT cellulitis -> still w/edema/erythema == improving * Acute renal failure / CKD * 09/10/17 CT CHEST: 1. Bilateral perihilar pulmonary ground-glass opacity/ consolidation and septal thickening is seen, suggestive of pulmonary edema, though superimposed pneumonia is not excluded. 2. There are moderate bilateral pleural effusions. 3. Mild cardiomegaly is noted. Coronary arterial and aortic atherosclerotic calcifications are present. 4. Anasarca is noted. * 0557 09/11/17 0557 Physical Exam Physical Exam Constitutional: VSS, NAD HEENT: Unremarkable Neck: Supple, full ROM Respiratory: Equal chest rise bilaterally without dyspnea on observation Cardiovascular: nl pulses, regular rate and rhythm Gastrointestinal: Soft, NT Extremities: Warml LLEXT edema/erythema/chronic hyperpigmentation changes distal pre-tibial Neurological: nl mental status, nl speech, nl strength ID ASSESSMENT 61 yo F admit with: 1. Resolving sepsis, secondary to left lower extremity cellulitis * BCx (-); Urine Cx (-) * 08/30/17 CT LLEXT: No CT findings to suggest osteomyelitis. 2. Persistent Leukocytosis -> due to #1 in addition to partial steroids + Neupogen demargination 3. Diabetes w/presumptive polyneuropathies: Nephro/Peripheral 4. Pancytopenia=> likely due to Methotrexate was started when she was in [facility] a year ago for leg pain. * Including: Anemia, leukopenia, thrombocytopenia => now leukocytosis on Neupogen 5. 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 Vascular insufficiency => ?hx of vasculitis ? 8. Anasarca w/pulmonary edema => DDx CHF * CT CHEST 09/10/17: Bilateral perihilar pulmonary ground-glass opacity/ consolidation and septal thickening is seen, suggestive of pulmonary edema, There are moderate bilateral pleural effusions. 9. Possible HCAP => CT superimposed pneumonia is not excluded. 10. Coronary arterial and aortic atherosclerotic calcifications are present w/ Mild cardiomegaly noted on CT: DDx ischemic vs HTN heart disease 11. CKD ABX ALLERGIES: KNDA CURRENT ABX: DAY # 18 => Vanco IV + Merrem + Cancidas ID RECOMMENDATIONS 1. Continue current ABX, if renal fx deteriorates on Vanco IV, consider change to Daptomycin (for cellulitis, Dapto will not treat concern PNA) . Problems: Consultation Date/Type/Reason Admit Date/Time Aug 24, 2017 at 19:05 Initial Consult Date 08/27/17 Type of Consultation: ID Referring Provider: GIA DUMONT Exam/Review of Systems Vital Signs Vitals Vital Signs Date Time Temp Pulse Resp B/P Pulse Ox O2 Delivery O2 Flow Rate FiO2 09/11/17 12:11 77 09/11/17 11:30 97.6 16 134/62 98 09/11/17 09:31 Nasal Cannula 3.0 09/10/17 20:13 30 Intake and Output 09/10/17 09/10/17 09/11/17 15:00 23:00 07:00 Intake Total 750 ml 250 ml Output Total 1400 ml 1300 ml Balance -650 ml -1050 ml Results Result Diagram: 09/11/17 0557 09/11/17 0557 Results 24 hrs Laboratory Tests Test 09/10/17 12:20 09/10/17 17:43 09/10/17 20:21 09/11/17 01:28 Bedside Glucose 231 H 188 197 108 Test 09/11/17 05:56 09/11/17 05:57 09/11/17 08:04 09/11/17 08:32 Prothrombin Time 13.9 Prothrombin Time Ratio 1.1 INR International Normalized Ratio 1.07 Activated Partial Thromboplast Time 28.7 White Blood Count 21.7 #H Red Blood Count 2.59 L Hemoglobin 7.5 L Hematocrit 23.5 L Mean Corpuscular Volume 90.7 Mean Corpuscular Hemoglobin 29.0 Mean Corpuscular Hemoglobin Concent 31.9 L Red Cell Distribution Width 17.4 H Platelet Count 481 H Mean Platelet Volume 10.5 H Neutrophils % Segmented Neutrophils % (Manual) 65 Band Neutrophils % (Manual) 2 Lymphocytes % Lymphocytes % (Manual) 10 L Monocytes % Monocytes % (Manual) 13 H Eosinophils % Basophils % Metamyelocytes % (manual) 3 H Myelocytes % (Manual) 7 H Nucleated Red Blood Cells % 2 H Neutrophils # Neutrophils # (Manual) 14.2 H Band Neutrophils # 0.4 Absolute Lymphocytes (Manual) 2.1 Lymphocytes # Monocytes # Absolute Monocytes (Manual) 2.8 H Eosinophils # Basophils # Metamyelocytes # 0.6 H Myelocytes # 1.5 H Nucleated Red Blood Cells # Platelet Estimate NORMAL Giant Platelets 2 H Polychromasia 2+ Anisocytosis 1+ Microcytosis 1+ Absolute Reticulocyte Count 0.078 Percent Reticulocyte Count 3.0 H Sodium Level 136 Potassium Level 3.9 Chloride Level 100 Carbon Dioxide Level 27 Anion Gap 13 Blood Urea Nitrogen 45 H Creatinine 2.46 H Glucose Level 58 #L Hemoglobin A1c 5.8 Calcium Level 8.0 L Phosphorus Level 3.7 Magnesium Level 2.2 Bedside Glucose 56 L 63 L Test 09/11/17 10:05 09/11/17 11:38 Bedside Glucose 118 143 Medications Medications Current Medications Ondansetron HCl (Zofran Inj) 4 mg Q6H PRN IV NAUSEA AND/OR VOMITING Last administered on 09/04/17 13:47; Admin Dose 4 MG; Start 08/25/17 at 08:00 Morphine Sulfate (morphine) 2 mg Q4H PRN IV PAIN Last administered on 09/01/17 20:06; Admin Dose 2 MG; Start 08/25/17 at 08:00 Loratadine (Claritin) 10 mg DAILY PO Last administered on 09/11/17 08:52; Admin Dose 10 MG; Start 08/25/17 at 09:00 Losartan Potassium (Cozaar) 50 mg DAILY PO Last administered on 09/11/17 08: 53; Admin Dose 50 MG; Start 08/25/17 at 09:00 Miscellaneous Information 1 ea NOTE XX ; Start 08/25/17 at 14:00 Glucose (Glutose) 15 gm Q15M PRN PO DECREASED GLUCOSE; Start 08/25/17 at 14:00 Glucose (Glutose) 22.5 gm Q15M PRN PO DECREASED GLUCOSE; Start 08/25/17 at 14: 00 Dextrose (D50w Syringe) 25 ml Q15M PRN IV DECREASED GLUCOSE Last administered on 09/05/17 12:07; Admin Dose 25 ML; Start 08/25/17 at 14:00 Dextrose (D50w Syringe) 50 ml Q15M PRN IV DECREASED GLUCOSE Last administered on 09/03/17 20:53; Admin Dose 50 ML; Start 08/25/17 at 14:00 Glucagon (Glucagen) 1 mg Q15M PRN IM DECREASED GLUCOSE; Start 08/25/17 at 14: 00 Glucose (Glutose) 15 gm Q15M PRN BUCCAL DECREASED GLUCOSE; Start 08/25/17 at 14:00 Acetaminophen (Tylenol Tab) 650 mg Q4H PRN PO PAIN AND OR ELEVATED TEMP Last administered on 08/26/17 17:06; Admin Dose 650 MG; Start 08/25/17 at 20:30 Miscellaneous Medication 10 ml 10 ml TID PO Last administered on 09/11/17 08: 50; Admin Dose 10 ML; Start 08/29/17 at 13:00 Leucovorin Calcium/Dextrose (Leucovorin Calcium Inj/D5W) 50 ml @ 200 mls/hr Q6H IV Last administered on 09/06/17 16:15; Admin Dose 200 MLS/HR; Start at 22:00; Status Future Hold Morphine Sulfate (morphine) 1 mg Q4H PRN IV LESS THAN 5/10 PAIN Last administered on 09/01/17 13:10; Admin Dose 1 MG; Start 08/30/17 at 20:00 Hydralazine HCl (Apresoline) 10 mg Q6H PRN IV ELEVATED SYSTOLIC BP Last administered on 09/11/17 01:24; Admin Dose 10 MG; Start 09/01/17 at 21:30 Silver Sulfadiazine (Thermazene 1% 400 Gm) 1 applic BID TOP Last administered on 09/11/17 11:43; Admin Dose 1 APPLIC; Start 09/04/17 at 14:00 Hydralazine HCl 10 mg 10 mg Q4H PRN IV ELEVATED BLOOD PRESSURE; Start at 01:00 Meropenem/Sodium Chloride 50 ml @ 100 mls/hr Q12 IVPB Last administered on 08:50; Admin Dose 100 MLS/HR; Start 09/05/17 at 23:00 Vancomycin HCl/ Sodium Chloride (Vancocin/NS) 250 ml @ 83.333 mls/ hr Q72H IVPB Last administered on 09/08/17 13:34; Admin Dose 83.333 MLS/HR; Start at 13:00 Heparin Sodium (Porcine) (Heparin (5000 Units/0.5 ml)) 5,000 unit Q8 SC Last administered on 09/11/17 06:01; Admin Dose 5,000 UNIT; Start 09/06/17 at 22: 00 Epoetin Kashif (Epogen (Esrd)) 10,000 units TuThSa@17 SC Last administered on 16:50; Admin Dose 10,000 UNITS; Start 09/07/17 at 17:00 Amlodipine Besylate (Norvasc) 10 mg DAILY PO Last administered on 09/11/17 08 :53; Admin Dose 10 MG; Start 09/08/17 at 09:00 Hydralazine HCl 25 mg 25 mg TID PO Last administered on 09/11/17 08:52; Admin Dose 25 MG; Start 09/08/17 at 13:00 Caspofungin/ Sodium Chloride (Cancidas/NS) 250 ml @ 250 mls/hr Q24H IVPB Last administered on 09/10/17 16:15; Admin Dose 250 MLS/HR; Start 09/10/17 at 15: 30 Potassium Chloride (Klor-Con 20) 20 meq DAILY PO Last administered on 08:52; Admin Dose 20 MEQ; Start 09/10/17 at 09:00 Bisoprolol Fumarate (Zebeta) 15 mg DAILY PO Last administered on 09/11/17 08: 51; Admin Dose 15 MG; Start 09/11/17 at 09:00 Insulin Glargine (Lantus) 13 unit QHS SC ; Start 09/11/17 at 21:00 VERONICA GUERRIER NP Sep 11, 2017 12:28
--- NOTE | 2017-09-11 12:43 | PN ---
Date/Time of Note Date/Time of Note DATE: 09/11/17 TIME: 12:41 Assessment/Plan VTE Prophylaxis VTE Prophylaxis Intervention: heparin Lines/Catheters IV Catheter Type (from Nrs): Saline Lock Urinary Cath still in place: Yes Reason Cath still needed: terminal illness/intractable pain Assessment/Plan Chief Complaint/Hosp Course Patient is a 61-year-old female with a past medical history of hypertension, diabetes, CKD who presented for left lower extremity cellulitis. Assessment/Plan #shortness of breath. Bilateral Pneumonia, - Patient found to have b/l PNA on chest xray - On antibiotics and changed to Meropenem per ID - Pulmonology consultation placed and appreciated recommendations, doubts PNA process - On Neb treatments -tapering steroids, stopped after today -? other etiology, CT chest noted - on lasix, but may need bronch at some point #pulmonary edema - likely etiology given elevated BNP and xray -continue lasix, careful given Cr -echo noted #acute on chronic diastolic congestive heart failure -continue lasix -cards recs appreciated -echo noted #. Left lower extremity cellulitis - ID and Surgery on board. Recommendations appreciated - Antibiotic per ID - CT LE showed cellulitis and no evidence of osteomyelitis. Xray LE also performed and no osteomyelitis appreciated. -gen surg/vascular surg do not feel any acute intervention is needed -wraps #. Mucositis 2/2 methotrexate use- improving - diphen/lido/mal oral solution ordered. Morphine if pain remain intolerable for PO intake - Tolerating soft mech diet #. Pancytopenia- improving -now leukocytosis, possible due to filgrastim per heme/onc - No transfusions needed today - Hematology on board and recommendations appreciated. - s/p multiple blood transfusions and plt transfusions. #leukocytosis -profound, ? steroids combined with neupogen. -downtrending #. Neutropenia- resolved - WBC downtrending now <30 and Neupogen no longer on board - Will continue to monitor - Heme on board and recommendations appreciated #. BK vs BK on CKD - Nephrology on board and recommendations appreciated. - Cr elevated, but lower than admission, likely chronic component - Monitor UOP - HIV negative, KASSY negative #. Hypokalemia - stable #. Eosinophilia - normalized after d/c sulfasalazine and mtx #. Vascular insufficiency - Vascular surgery on board and recommendations appreciated. No current vascular intervention as the patient has not developed any gangrene or ulcers - Will need to follow up as outpatient due to LE atherosclerosis DISPO: Will need to finalize abx per ID, diurese, watch white count, possible bronch and monitor resp status and dependence on O2, when showing signs of stability, DC to SNF once on stable dose of lasix oral and attempt to reduce O2 dependence. 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 Problems: Subjective 24 Hr Interval Summary Free Text/Dictation sleeping comfortably, all questions answered Exam/Review of Systems Vital Signs Vitals Vital Signs Date Time Temp Pulse Resp B/P Pulse Ox O2 Delivery O2 Flow Rate FiO2 09/11/17 12:11 77 09/11/17 11:30 97.6 16 134/62 98 09/11/17 09:31 Nasal Cannula 3.0 09/10/17 20:13 30 Intake and Output 09/10/17 09/10/17 09/11/17 15:00 23:00 07:00 Intake Total 750 ml 250 ml Output Total 1400 ml 1300 ml Balance -650 ml -1050 ml Exam Physical exam General: Patient is laying in bed and answers questions appropriately Mentation: Patient is alert and oriented 4, Head: Normocephalic atraumatic Eyes: EOMI, pupils reactive to light Neck: Supple, nontender, midline Respiratory: Clear to auscultation bilaterally Cardiovascular: regular rate, no obvious murmurs Gastrointestinal: non-tender to palpation, bowel sounds heard. Neurological: Moves UE extremities spontaneously, no movement or sensation in LE Skin: L hip ulcer Results Result Diagram: 09/11/17 0557 09/11/17 0557 Results 24 hrs Laboratory Tests Test 09/10/17 17:43 09/10/17 20:21 09/11/17 01:28 09/11/17 05:56 Bedside Glucose 188 197 108 Prothrombin Time 13.9 Prothrombin Time Ratio 1.1 INR International Normalized Ratio 1.07 Activated Partial Thromboplast Time 28.7 Test 09/11/17 05:57 09/11/17 08:04 09/11/17 08:32 09/11/17 10:05 White Blood Count 21.7 #H Red Blood Count 2.59 L Hemoglobin 7.5 L Hematocrit 23.5 L Mean Corpuscular Volume 90.7 Mean Corpuscular Hemoglobin 29.0 Mean Corpuscular Hemoglobin Concent 31.9 L Red Cell Distribution Width 17.4 H Platelet Count 481 H Mean Platelet Volume 10.5 H Neutrophils % Segmented Neutrophils % (Manual) 65 Band Neutrophils % (Manual) 2 Lymphocytes % Lymphocytes % (Manual) 10 L Monocytes % Monocytes % (Manual) 13 H Eosinophils % Basophils % Metamyelocytes % (manual) 3 H Myelocytes % (Manual) 7 H Nucleated Red Blood Cells % 2 H Neutrophils # Neutrophils # (Manual) 14.2 H Band Neutrophils # 0.4 Absolute Lymphocytes (Manual) 2.1 Lymphocytes # Monocytes # Absolute Monocytes (Manual) 2.8 H Eosinophils # Basophils # Metamyelocytes # 0.6 H Myelocytes # 1.5 H Nucleated Red Blood Cells # Platelet Estimate NORMAL Giant Platelets 2 H Polychromasia 2+ Anisocytosis 1+ Microcytosis 1+ Absolute Reticulocyte Count 0.078 Percent Reticulocyte Count 3.0 H Sodium Level 136 Potassium Level 3.9 Chloride Level 100 Carbon Dioxide Level 27 Anion Gap 13 Blood Urea Nitrogen 45 H Creatinine 2.46 H Glucose Level 58 #L Hemoglobin A1c 5.8 Calcium Level 8.0 L Phosphorus Level 3.7 Magnesium Level 2.2 Bedside Glucose 56 L 63 L 118 Test 09/11/17 11:38 Bedside Glucose 143 Medications Medications Current Medications Ondansetron HCl (Zofran Inj) 4 mg Q6H PRN IV NAUSEA AND/OR VOMITING Last administered on 09/04/17 13:47; Admin Dose 4 MG; Start 08/25/17 at 08:00 Morphine Sulfate (morphine) 2 mg Q4H PRN IV PAIN Last administered on 09/01/17 20:06; Admin Dose 2 MG; Start 08/25/17 at 08:00 Loratadine (Claritin) 10 mg DAILY PO Last administered on 09/11/17 08:52; Admin Dose 10 MG; Start 08/25/17 at 09:00 Losartan Potassium (Cozaar) 50 mg DAILY PO Last administered on 09/11/17 08: 53; Admin Dose 50 MG; Start 08/25/17 at 09:00 Miscellaneous Information 1 ea NOTE XX ; Start 08/25/17 at 14:00 Glucose (Glutose) 15 gm Q15M PRN PO DECREASED GLUCOSE; Start 08/25/17 at 14:00 Glucose (Glutose) 22.5 gm Q15M PRN PO DECREASED GLUCOSE; Start 08/25/17 at 14: 00 Dextrose (D50w Syringe) 25 ml Q15M PRN IV DECREASED GLUCOSE Last administered on 09/05/17 12:07; Admin Dose 25 ML; Start 08/25/17 at 14:00 Dextrose (D50w Syringe) 50 ml Q15M PRN IV DECREASED GLUCOSE Last administered on 09/03/17 20:53; Admin Dose 50 ML; Start 08/25/17 at 14:00 Glucagon (Glucagen) 1 mg Q15M PRN IM DECREASED GLUCOSE; Start 08/25/17 at 14: 00 Glucose (Glutose) 15 gm Q15M PRN BUCCAL DECREASED GLUCOSE; Start 08/25/17 at 14:00 Acetaminophen (Tylenol Tab) 650 mg Q4H PRN PO PAIN AND OR ELEVATED TEMP Last administered on 08/26/17 17:06; Admin Dose 650 MG; Start 08/25/17 at 20:30 Miscellaneous Medication 10 ml 10 ml TID PO Last administered on 09/11/17 08: 50; Admin Dose 10 ML; Start 08/29/17 at 13:00 Leucovorin Calcium/Dextrose (Leucovorin Calcium Inj/D5W) 50 ml @ 200 mls/hr Q6H IV Last administered on 09/06/17 16:15; Admin Dose 200 MLS/HR; Start at 22:00; Status Future Hold Morphine Sulfate (morphine) 1 mg Q4H PRN IV LESS THAN 5/10 PAIN Last administered on 09/01/17 13:10; Admin Dose 1 MG; Start 08/30/17 at 20:00 Hydralazine HCl (Apresoline) 10 mg Q6H PRN IV ELEVATED SYSTOLIC BP Last administered on 09/11/17 01:24; Admin Dose 10 MG; Start 09/01/17 at 21:30 Silver Sulfadiazine (Thermazene 1% 400 Gm) 1 applic BID TOP Last administered on 09/11/17 11:43; Admin Dose 1 APPLIC; Start 09/04/17 at 14:00 Hydralazine HCl 10 mg 10 mg Q4H PRN IV ELEVATED BLOOD PRESSURE; Start at 01:00 Meropenem/Sodium Chloride 50 ml @ 100 mls/hr Q12 IVPB Last administered on 08:50; Admin Dose 100 MLS/HR; Start 09/05/17 at 23:00 Vancomycin HCl/ Sodium Chloride (Vancocin/NS) 250 ml @ 83.333 mls/ hr Q72H IVPB Last administered on 09/08/17 13:34; Admin Dose 83.333 MLS/HR; Start at 13:00 Heparin Sodium (Porcine) (Heparin (5000 Units/0.5 ml)) 5,000 unit Q8 SC Last administered on 09/11/17 06:01; Admin Dose 5,000 UNIT; Start 09/06/17 at 22: 00 Epoetin Kashif (Epogen (Esrd)) 10,000 units TuThSa@17 SC Last administered on 16:50; Admin Dose 10,000 UNITS; Start 09/07/17 at 17:00 Amlodipine Besylate (Norvasc) 10 mg DAILY PO Last administered on 09/11/17 08 :53; Admin Dose 10 MG; Start 09/08/17 at 09:00 Hydralazine HCl 25 mg 25 mg TID PO Last administered on 09/11/17 08:52; Admin Dose 25 MG; Start 09/08/17 at 13:00 Caspofungin/ Sodium Chloride (Cancidas/NS) 250 ml @ 250 mls/hr Q24H IVPB Last administered on 09/10/17 16:15; Admin Dose 250 MLS/HR; Start 09/10/17 at 15: 30 Potassium Chloride (Klor-Con 20) 20 meq DAILY PO Last administered on 08:52; Admin Dose 20 MEQ; Start 09/10/17 at 09:00 Bisoprolol Fumarate (Zebeta) 15 mg DAILY PO Last administered on 09/11/17 08: 51; Admin Dose 15 MG; Start 09/11/17 at 09:00 Insulin Glargine (Lantus) 13 unit QHS SC ; Start 09/11/17 at 21:00 GIA DUMONT Sep 11, 2017 12:43
--- NOTE | 2017-09-11 13:12 | CONS ---
Date/Time of Note Date/Time of Note DATE: 09/11/17 TIME: 13:11 Assessment/Plan Assessment/Plan Chief Complaint/Hosp Course 1. acute on-chronic kidney disease with no known baseline could be due to underlying sepsis/meds vs drug induced Cr improved significantly 2 Underlying acute tubular necrosis, possibly sepsis-induced due to cellulitis of the left lower extremity. 3 Likely underlying diabetic nephropathy, underlying hypertensive nephrosclerosis 4 pancytopenia could be due to sepsis, as well as drug-induced mthx/sulpha 5. Hyponatremia, resolved 6. Non gap Metabolic acidosis likely secondary to renal failure on bictra 7 Nephrotic range proteinuria 8 BLE atherosclerosis Problems: Additional Assessment/Plan 1. Continue diuresis 2. Optimization of kidney function Consultation Date/Type/Reason Admit Date/Time Aug 24, 2017 at 19:05 Initial Consult Date 08/31/17 Type of Consultation: nephrology Reason for Consultation dr coleman Referring Provider: GIA DUMONT Exam/Review of Systems Vital Signs Vitals Vital Signs Date Time Temp Pulse Resp B/P Pulse Ox O2 Delivery O2 Flow Rate FiO2 09/11/17 12:11 77 09/11/17 11:30 97.6 16 134/62 98 09/11/17 09:31 Nasal Cannula 3.0 09/10/17 20:13 30 Intake and Output 09/10/17 09/10/17 09/11/17 15:00 23:00 07:00 Intake Total 750 ml 250 ml Output Total 1400 ml 1300 ml Balance -650 ml -1050 ml Exam Constitutional: alert, oriented Respiratory: diminished breath sounds Gastrointestinal: soft Musculoskeletal: swelling Results Result Diagram: 09/11/17 0557 09/11/17 0557 Results 24 hrs Laboratory Tests Test 09/10/17 17:43 09/10/17 20:21 09/11/17 01:28 09/11/17 05:56 Bedside Glucose 188 197 108 Prothrombin Time 13.9 Prothrombin Time Ratio 1.1 INR International Normalized Ratio 1.07 Activated Partial Thromboplast Time 28.7 Test 09/11/17 05:57 09/11/17 08:04 09/11/17 08:32 09/11/17 10:05 White Blood Count 21.7 #H Red Blood Count 2.59 L Hemoglobin 7.5 L Hematocrit 23.5 L Mean Corpuscular Volume 90.7 Mean Corpuscular Hemoglobin 29.0 Mean Corpuscular Hemoglobin Concent 31.9 L Red Cell Distribution Width 17.4 H Platelet Count 481 H Mean Platelet Volume 10.5 H Neutrophils % Segmented Neutrophils % (Manual) 65 Band Neutrophils % (Manual) 2 Lymphocytes % Lymphocytes % (Manual) 10 L Monocytes % Monocytes % (Manual) 13 H Eosinophils % Basophils % Metamyelocytes % (manual) 3 H Myelocytes % (Manual) 7 H Nucleated Red Blood Cells % 2 H Neutrophils # Neutrophils # (Manual) 14.2 H Band Neutrophils # 0.4 Absolute Lymphocytes (Manual) 2.1 Lymphocytes # Monocytes # Absolute Monocytes (Manual) 2.8 H Eosinophils # Basophils # Metamyelocytes # 0.6 H Myelocytes # 1.5 H Nucleated Red Blood Cells # Platelet Estimate NORMAL Giant Platelets 2 H Polychromasia 2+ Anisocytosis 1+ Microcytosis 1+ Absolute Reticulocyte Count 0.078 Percent Reticulocyte Count 3.0 H Sodium Level 136 Potassium Level 3.9 Chloride Level 100 Carbon Dioxide Level 27 Anion Gap 13 Blood Urea Nitrogen 45 H Creatinine 2.46 H Glucose Level 58 #L Hemoglobin A1c 5.8 Calcium Level 8.0 L Phosphorus Level 3.7 Magnesium Level 2.2 Bedside Glucose 56 L 63 L 118 Test 09/11/17 11:38 Bedside Glucose 143 Medications Medications Current Medications Ondansetron HCl (Zofran Inj) 4 mg Q6H PRN IV NAUSEA AND/OR VOMITING Last administered on 09/04/17 13:47; Admin Dose 4 MG; Start 08/25/17 at 08:00 Morphine Sulfate (morphine) 2 mg Q4H PRN IV PAIN Last administered on 09/01/17 20:06; Admin Dose 2 MG; Start 08/25/17 at 08:00 Loratadine (Claritin) 10 mg DAILY PO Last administered on 09/11/17 08:52; Admin Dose 10 MG; Start 08/25/17 at 09:00 Losartan Potassium (Cozaar) 50 mg DAILY PO Last administered on 09/11/17 08: 53; Admin Dose 50 MG; Start 08/25/17 at 09:00 Miscellaneous Information 1 ea NOTE XX ; Start 08/25/17 at 14:00 Glucose (Glutose) 15 gm Q15M PRN PO DECREASED GLUCOSE; Start 08/25/17 at 14:00 Glucose (Glutose) 22.5 gm Q15M PRN PO DECREASED GLUCOSE; Start 08/25/17 at 14: 00 Dextrose (D50w Syringe) 25 ml Q15M PRN IV DECREASED GLUCOSE Last administered on 09/05/17 12:07; Admin Dose 25 ML; Start 08/25/17 at 14:00 Dextrose (D50w Syringe) 50 ml Q15M PRN IV DECREASED GLUCOSE Last administered on 09/03/17 20:53; Admin Dose 50 ML; Start 08/25/17 at 14:00 Glucagon (Glucagen) 1 mg Q15M PRN IM DECREASED GLUCOSE; Start 08/25/17 at 14: 00 Glucose (Glutose) 15 gm Q15M PRN BUCCAL DECREASED GLUCOSE; Start 08/25/17 at 14:00 Acetaminophen (Tylenol Tab) 650 mg Q4H PRN PO PAIN AND OR ELEVATED TEMP Last administered on 08/26/17 17:06; Admin Dose 650 MG; Start 08/25/17 at 20:30 Miscellaneous Medication 10 ml 10 ml TID PO Last administered on 09/11/17 08: 50; Admin Dose 10 ML; Start 08/29/17 at 13:00 Leucovorin Calcium/Dextrose (Leucovorin Calcium Inj/D5W) 50 ml @ 200 mls/hr Q6H IV Last administered on 09/06/17 16:15; Admin Dose 200 MLS/HR; Start at 22:00; Status Future Hold Morphine Sulfate (morphine) 1 mg Q4H PRN IV LESS THAN 5/10 PAIN Last administered on 09/01/17 13:10; Admin Dose 1 MG; Start 08/30/17 at 20:00 Hydralazine HCl (Apresoline) 10 mg Q6H PRN IV ELEVATED SYSTOLIC BP Last administered on 09/11/17 01:24; Admin Dose 10 MG; Start 09/01/17 at 21:30 Silver Sulfadiazine (Thermazene 1% 400 Gm) 1 applic BID TOP Last administered on 09/11/17 11:43; Admin Dose 1 APPLIC; Start 09/04/17 at 14:00 Hydralazine HCl 10 mg 10 mg Q4H PRN IV ELEVATED BLOOD PRESSURE; Start at 01:00 Meropenem/Sodium Chloride 50 ml @ 100 mls/hr Q12 IVPB Last administered on 08:50; Admin Dose 100 MLS/HR; Start 09/05/17 at 23:00 Vancomycin HCl/ Sodium Chloride (Vancocin/NS) 250 ml @ 83.333 mls/ hr Q72H IVPB Last administered on 09/08/17 13:34; Admin Dose 83.333 MLS/HR; Start at 13:00 Heparin Sodium (Porcine) (Heparin (5000 Units/0.5 ml)) 5,000 unit Q8 SC Last administered on 09/11/17 06:01; Admin Dose 5,000 UNIT; Start 09/06/17 at 22: 00 Epoetin Kashif (Epogen (Esrd)) 10,000 units TuThSa@17 SC Last administered on 16:50; Admin Dose 10,000 UNITS; Start 09/07/17 at 17:00 Amlodipine Besylate (Norvasc) 10 mg DAILY PO Last administered on 09/11/17 08 :53; Admin Dose 10 MG; Start 09/08/17 at 09:00 Hydralazine HCl 25 mg 25 mg TID PO Last administered on 09/11/17 08:52; Admin Dose 25 MG; Start 09/08/17 at 13:00 Caspofungin/ Sodium Chloride (Cancidas/NS) 250 ml @ 250 mls/hr Q24H IVPB Last administered on 09/10/17 16:15; Admin Dose 250 MLS/HR; Start 09/10/17 at 15: 30 Potassium Chloride (Klor-Con 20) 20 meq DAILY PO Last administered on 08:52; Admin Dose 20 MEQ; Start 09/10/17 at 09:00 Bisoprolol Fumarate (Zebeta) 15 mg DAILY PO Last administered on 09/11/17 08: 51; Admin Dose 15 MG; Start 09/11/17 at 09:00 Insulin Glargine (Lantus) 13 unit QHS SC ; Start 09/11/17 at 21:00 JUAN CARLOS THURMAN Sep 11, 2017 13:12
[2017-09-11] MEDS: VANCOMYCIN 1.25 GM in SOD CHLORIDE 0.9% 250 ML IVPB SCH (13:40)
[2017-09-11] MEDS: CASPOFUNGIN 50 MG in SOD CHLORIDE 0.9% 250 ML IVPB SCH (16:44)
[2017-09-11] MEDS: EPOETIN 10000 UNITS/1 ML INJ (ESRD) SC SCH (17:13)
--- NOTE | 2017-09-11 17:52 | PN ---
Date/Time of Note Date/Time of Note DATE: 09/11/17 TIME: 17:51 Assessment/Plan Lines/Catheters IV Catheter Type (from [facility]): Saline Lock Reina in Place (from [facility]): Yes Assessment/Plan Chief Complaint/Hosp Course 1. Left lower extremity cellulitis and edema with history of diabetes;CT lower extremity without abscess -continue supportive measures -elevate above heart level 2. Leukocytosis, without fevers, with history of leukopenia: on prednisone -trend -abx per ID 3. Diabetes -Nutrition medication optimization -Encourage weight loss 4. Hypertension -Nutrition medication optimization -Encourage weight loss 5. Chronic kidney disease: cr stable -Judicious fluid management -Avoid nephrotoxic agents 6. Bilateral ground glass changes on CT -defer to pulm -pulm toilette 7. Hypoalbuminemia with hypocalcemia -Nutritional optimization 8. Anemia: no acute bleed noted -monitor -transfuse as needed 9. Electrolyte imbalance -optimize lytes Thank you, Problems: Subjective 24 Hr Interval Summary No leg pain. Improved mobility. Swelling much improved. Sob with exertion, with readily audible wheezing. Leukocytosis. No fevers, chills, cp, palpitations, walsh , dizziness, n/v/d/dysuria. Exam/Review of Systems Vital Signs Vitals Vital Signs Date Time Temp Pulse Resp B/P Pulse Ox O2 Delivery O2 Flow Rate FiO2 09/11/17 16:30 3.0 09/11/17 16:08 81 09/11/17 15:04 98.0 18 145/69 96 09/11/17 09:31 Nasal Cannula 09/10/17 20:13 30 Intake and Output 09/10/17 09/10/17 09/11/17 15:00 23:00 07:00 Intake Total 750 ml 250 ml Output Total 1400 ml 1300 ml Balance -650 ml -1050 ml Exam Free Text/Dictation Constitutional: obese, other (Awake), No distress Psych: nl mood/affect, No anxiety Head: atraumatic, normocephalic Eyes: EOMI, PERRL, nl conjunctiva, No icteric ENMT: mucosa pink and dry, nl external ears & nose, nl lips & teeth Neck: non-tender, supple, No jvd Respiratory: sob w exertion, wheezing. No congested cough, No labored breathing, No wheezing Cardiovascular: edema (Left lower extremity- improving), regular rate and rhythm Gastrointestinal: non-tender, soft, No rebound or guarding Musculoskeletal: joint tenderness (Left ankle), No nl extremities to inspection Extremities: edema, normal pulses, pitting Left pedal edema +2 (much improved) , tenderness, No calf tenderness Neurological: nl mental status, nl strength Skin: rash or lesions (Left lower extremity-discoloration improved, flaky skin) , No diaphoresis, No nl turgor Lymph: nl lymph nodes, nontender Results Result Diagram: 09/11/17 0557 09/11/17 0557 BOB FUNEZ MD Sep 11, 2017 17:52
[2017-09-11] MEDS: INSULIN GLARGINE [LANtus] 3 ML PEN SC SCH (22:22)
[2017-09-12] VITALS (12 sets, daily range): BP systolic 125–157; BP diastolic 60–78; PULSE 76–83; RESP 17–18
[2017-09-12] MEDS: ALBUTEROL/IPRATROPIUM (NEB) 3 ML AMP HHN SCH ×6 (00:56→20:57)
[2017-09-12] MEDS: FUROSEMIDE 40 MG INJ IV SCH ×4 (06:06→17:05)
[2017-09-12] MEDS: HEPARIN 5,000 UNIT/0.5 ML VIAL SC SCH ×3 (06:09→21:23)
[2017-09-12] MEDS: ACCU-CHEK XX SCH ×4 (07:45→22:47)
[2017-09-12] MEDS: INSULIN ASPART [NOVOLOG] 3 ML PEN SC SCH ×4 (07:45→22:50)
[2017-09-12] MEDS: MEROPENEM 500MG/50 ML (PMX) 50 ML IVPB SCH ×2 (08:56→21:11)
[2017-09-12] MEDS: DIPHENHYD/MYLANTA/LIDO (PO SYG) PO SCH ×3 (08:56→21:12)
[2017-09-12] MEDS: BISOPROLOL 5 MG TAB PO SCH (08:57)
[2017-09-12] MEDS: POTASSIUM CHLORIDE (SR) 20 MEQ TAB PO SCH (08:57)
[2017-09-12] MEDS: LORATADINE 10 MG TAB PO SCH (08:58)
[2017-09-12] MEDS: AMLODIPINE 10 MG TAB PO SCH (08:58)
[2017-09-12] MEDS: LOSARTAN 50 MG TAB PO SCH (08:58)
[2017-09-12] MEDS: SILVER SULFADIAZINE 1% 400 GM CR TOP SCH ×2 (08:59→21:23)
--- NOTE | 2017-09-12 10:29 | CONS ---
Date/Time of Note Date/Time of Note DATE: 09/12/17 TIME: 10: Consult Date/Type/Reason Admit Date/Time Aug 24, 2017 at 19:05 Initial Consult Date 08/31/17 Type of Consultation: Pulmonary Ordering Provider: GIA DUMONT Subjective Remains stable. Less respiratory distress this morning. Remains mostly bedbound. Objective Vital Signs Date Time Temp Pulse Resp B/P Pulse Ox O2 Delivery O2 Flow Rate FiO2 09/12/17 09:31 78 18 95 Nasal Cannula 2.0 09/12/17 07:25 98.1 125/60 09/10/17 20:13 30 Intake and Output 09/11/17 09/11/17 09/12/17 15:00 23:00 07:00 Intake Total 50 ml 1350 ml 120 ml Output Total 600 ml 1600 ml Balance 50 ml 750 ml -1480 ml Exam GENERAL: Obese lady comfortable at rest. VITAL SIGNS: per chart NECK: Supple. No JVD or lymphadenopathy. CARDIAC EXAM: S1, S2. No added sounds or murmurs. CHEST: Diminished air entry both lung bases. ABDOMEN: Soft, nontender. No guarding or rebound. EXTREMITIES: No cyanosis, clubbing or edema. NEUROLOGIC: Generalized weakness. No focal deficits. Results/Medications Result Diagram: 09/12/1752309/12/1724 Results 24 hrs Laboratory Tests Test 09/11/17 11:38 09/11/17 12:16 09/11/17 17:09 09/11/17 22:00 Bedside Glucose 143 267 H 227 H Vancomycin Level Trough 18.4 Test 09/12/17 02:25 09/12/17 05:24 09/12/17 07:45 Bedside Glucose 154 74 White Blood Count 17.0 #H Red Blood Count 2.66 L Hemoglobin 7.8 L Hematocrit 24.6 L Mean Corpuscular Volume 92.5 Mean Corpuscular Hemoglobin 29.3 Mean Corpuscular Hemoglobin Concent 31.7 L Red Cell Distribution Width 17.3 H Platelet Count 541 H Mean Platelet Volume 10.1 Neutrophils % 56.7 Lymphocytes % 18.0 Monocytes % 13.4 H Eosinophils % 0.1 Basophils % 0.2 Nucleated Red Blood Cells % 2.8 H Neutrophils # 9.6 H Lymphocytes # 3.1 H Monocytes # 2.3 H Eosinophils # 0.0 Basophils # 0.0 Nucleated Red Blood Cells # 0.5 H Sodium Level 135 Potassium Level 4.0 Chloride Level 101 Carbon Dioxide Level 29 Anion Gap 9 Blood Urea Nitrogen 53 H Creatinine 2.46 H Glucose Level 92 Calcium Level 8.3 L Phosphorus Level 3.7 Magnesium Level 2.3 Medications Current Medications Ondansetron HCl (Zofran Inj) 4 mg Q6H PRN IV NAUSEA AND/OR VOMITING Last administered on 09/04/17 13:47; Admin Dose 4 MG; Start 08/25/17 at 08:00 Morphine Sulfate (morphine) 2 mg Q4H PRN IV PAIN Last administered on 09/01/17 20:06; Admin Dose 2 MG; Start 08/25/17 at 08:00 Loratadine (Claritin) 10 mg DAILY PO Last administered on 09/12/17 08:58; Admin Dose 10 MG; Start 08/25/17 at 09:00 Losartan Potassium (Cozaar) 50 mg DAILY PO Last administered on 09/12/17 08: 58; Admin Dose 50 MG; Start 08/25/17 at 09:00 Miscellaneous Information 1 ea NOTE XX ; Start 08/25/17 at 14:00 Glucose (Glutose) 15 gm Q15M PRN PO DECREASED GLUCOSE; Start 08/25/17 at 14:00 Glucose (Glutose) 22.5 gm Q15M PRN PO DECREASED GLUCOSE; Start 08/25/17 at 14: 00 Dextrose (D50w Syringe) 25 ml Q15M PRN IV DECREASED GLUCOSE Last administered on 09/05/17 12:07; Admin Dose 25 ML; Start 08/25/17 at 14:00 Dextrose (D50w Syringe) 50 ml Q15M PRN IV DECREASED GLUCOSE Last administered on 09/03/17 20:53; Admin Dose 50 ML; Start 08/25/17 at 14:00 Glucagon (Glucagen) 1 mg Q15M PRN IM DECREASED GLUCOSE; Start 08/25/17 at 14: 00 Glucose (Glutose) 15 gm Q15M PRN BUCCAL DECREASED GLUCOSE; Start 08/25/17 at 14:00 Acetaminophen (Tylenol Tab) 650 mg Q4H PRN PO PAIN AND OR ELEVATED TEMP Last administered on 08/26/17 17:06; Admin Dose 650 MG; Start 08/25/17 at 20:30 Miscellaneous Medication 10 ml 10 ml TID PO Last administered on 09/12/17 08: 56; Admin Dose 10 ML; Start 08/29/17 at 13:00 Leucovorin Calcium/Dextrose (Leucovorin Calcium Inj/D5W) 50 ml @ 200 mls/hr Q6H IV Last administered on 09/06/17 16:15; Admin Dose 200 MLS/HR; Start at 22:00; Status Future Hold Morphine Sulfate (morphine) 1 mg Q4H PRN IV LESS THAN 5/10 PAIN Last administered on 09/01/17 13:10; Admin Dose 1 MG; Start 08/30/17 at 20:00 Hydralazine HCl (Apresoline) 10 mg Q6H PRN IV ELEVATED SYSTOLIC BP Last administered on 09/11/17 01:24; Admin Dose 10 MG; Start 09/01/17 at 21:30 Silver Sulfadiazine (Thermazene 1% 400 Gm) 1 applic BID TOP Last administered on 09/12/17 08:59; Admin Dose 1 APPLIC; Start 09/04/17 at 14:00 Hydralazine HCl 10 mg 10 mg Q4H PRN IV ELEVATED BLOOD PRESSURE; Start at 01:00 Meropenem/Sodium Chloride (Merrem 500mg/50 ml(Pmx)) 50 ml @ 100 mls/hr Q12 IVPB Last administered on 09/12/17 08:56; Admin Dose 100 MLS/HR; Start 09/05 at 23:00 Heparin Sodium (Porcine) (Heparin (5000 Units/0.5 ml)) 5,000 unit Q8 SC Last administered on 09/12/17 06:09; Admin Dose 5,000 UNIT; Start 09/06/17 at 22: 00 Epoetin Kashif (Epogen (Esrd)) 10,000 units TuThSa@17 SC Last administered on 17:13; Admin Dose 10,000 UNITS; Start 09/07/17 at 17:00 Amlodipine Besylate (Norvasc) 10 mg DAILY PO Last administered on 09/12/17 08 :58; Admin Dose 10 MG; Start 09/08/17 at 09:00 Hydralazine HCl 25 mg 25 mg TID PO Last administered on 09/12/17 08:58; Admin Dose 25 MG; Start 09/08/17 at 13:00 Caspofungin/ Sodium Chloride (Cancidas/NS) 250 ml @ 250 mls/hr Q24H IVPB Last administered on 09/11/17 16:44; Admin Dose 250 MLS/HR; Start 09/10/17 at 15: 30 Potassium Chloride (Klor-Con 20) 20 meq DAILY PO Last administered on 08:57; Admin Dose 20 MEQ; Start 09/10/17 at 09:00 Bisoprolol Fumarate (Zebeta) 15 mg DAILY PO Last administered on 09/12/17 08: 57; Admin Dose 15 MG; Start 09/11/17 at 09:00 Insulin Glargine 13 unit 13 unit QHS SC Last administered on 09/11/17 22:22; Admin Dose 13 UNIT; Start 09/11/17 at 21:00 Vancomycin HCl (Vancocin) 250 ml @ 125 mls/hr Q72H IVPB ; Start 09/14/17 at 22 :00 Furosemide (Lasix) 40 mg 09,13,18 IV Last administered on 09/12/17 08:59; Admin Dose 40 MG; Start 09/12/17 at 09:00 Assessment/Plan Chief Complaint/Hosp Course IMPRESSION: 1. Hypoxemic respiratory insufficiency in the setting of hypertension, chronic kidney disease and volume overload. 2. Chest x-ray demonstrates worsening pulmonary edema. CT chest demonstrates ongoing pleural effusions and bilateral infiltrates and/or pulmonary edema 3. Persistent infiltrates concerning for inflammatory versus infectious process. Improving leukocytosis. RECOMMENDATIONS: 1. Continue antibiotics, findings noted. 2. renal recommendations. Would increase diuresis if tolerated. If radiographic improvement not achieved by increasing diuretics patient may require thoracentesis and/or bronchoscopy. Repeat chest x-ray in a.m. 3. Cardiac recommendations 4. Aspiration precautions 5. Decrease FiO2 as tolerated PT evaluation Problems: TANI TOLEDO MD, [facility] Sep 12, 2017 10:29
--- NOTE | 2017-09-12 11:34 | CONS ---
Date/Time of Note Date/Time of Note DATE: 09/12/17 TIME: 11:32 Assessment/Plan Assessment/Plan Additional Assessment/Plan Acute decompensated diastolic congestive heart failure Preserved ejection fraction Mild to moderate aortic valve stenosis Volume overload Sepsis Pneumonia Cellulitis Acute on chronic kidney disease -CT chest more consistent with pulmonary edema and pleural effusions, less likely infectious process. Diuretics have been increased, continue diuretics as per our nephrology colleagues. Antibiotics as per infectious disease. Blood pressure trend improving. If chest x-ray does not improve with diuretics , consider thoracentesis. Consultation Date/Type/Reason Admit Date/Time Aug 24, 2017 at 19:05 Initial Consult Date 08/31/17 Type of Consultation: cv Referring Provider: GIA DUMONT 24 HR Interval Summary Free Text/Dictation Patient seen and examined, denies shortness of breath Exam/Review of Systems Vital Signs Vitals Vital Signs Date Time Temp Pulse Resp B/P Pulse Ox O2 Delivery O2 Flow Rate FiO2 09/12/17 11:20 98.1 78 18 146/68 96 09/12/17 09:31 Nasal Cannula 2.0 09/10/17 20:13 30 Intake and Output 09/11/17 09/11/17 09/12/17 15:00 23:00 07:00 Intake Total 50 ml 1350 ml 120 ml Output Total 600 ml 1600 ml Balance 50 ml 750 ml -1480 ml Exam No apparent distress Constitutional: alert, oriented Head: normocephalic Respiratory: other (Coarse breath sounds bilaterally, decreased at the bases) Cardiovascular: other (S1-S2 heard), regular rate and rhythm Gastrointestinal: bowel sounds, non-tender, soft Extremities: edema, other (Bandage left lower extremity) Results Result Diagram: 09/12/1724 09/12/1724 Results 24 hrs Laboratory Tests Test 09/11/17 11:38 09/11/17 12:16 09/11/17 17:09 09/11/17 22:00 Bedside Glucose 143 267 H 227 H Vancomycin Level Trough 18.4 Test 09/12/17 02:25 09/12/17 05:24 09/12/17 07:45 09/12/17 11:30 Bedside Glucose 154 74 152 White Blood Count 17.0 #H Red Blood Count 2.66 L Hemoglobin 7.8 L Hematocrit 24.6 L Mean Corpuscular Volume 92.5 Mean Corpuscular Hemoglobin 29.3 Mean Corpuscular Hemoglobin Concent 31.7 L Red Cell Distribution Width 17.3 H Platelet Count 541 H Mean Platelet Volume 10.1 Neutrophils % 56.7 Lymphocytes % 18.0 Monocytes % 13.4 H Eosinophils % 0.1 Basophils % 0.2 Nucleated Red Blood Cells % 2.8 H Neutrophils # 9.6 H Lymphocytes # 3.1 H Monocytes # 2.3 H Eosinophils # 0.0 Basophils # 0.0 Nucleated Red Blood Cells # 0.5 H Sodium Level 135 Potassium Level 4.0 Chloride Level 101 Carbon Dioxide Level 29 Anion Gap 9 Blood Urea Nitrogen 53 H Creatinine 2.46 H Glucose Level 92 Calcium Level 8.3 L Phosphorus Level 3.7 Magnesium Level 2.3 Medications Medications Current Medications Ondansetron HCl (Zofran Inj) 4 mg Q6H PRN IV NAUSEA AND/OR VOMITING Last administered on 09/04/17 13:47; Admin Dose 4 MG; Start 08/25/17 at 08:00 Morphine Sulfate (morphine) 2 mg Q4H PRN IV PAIN Last administered on 09/01/17 20:06; Admin Dose 2 MG; Start 08/25/17 at 08:00 Loratadine (Claritin) 10 mg DAILY PO Last administered on 09/12/17 08:58; Admin Dose 10 MG; Start 08/25/17 at 09:00 Losartan Potassium (Cozaar) 50 mg DAILY PO Last administered on 09/12/17 08: 58; Admin Dose 50 MG; Start 08/25/17 at 09:00 Miscellaneous Information 1 ea NOTE XX ; Start 08/25/17 at 14:00 Glucose (Glutose) 15 gm Q15M PRN PO DECREASED GLUCOSE; Start 08/25/17 at 14:00 Glucose (Glutose) 22.5 gm Q15M PRN PO DECREASED GLUCOSE; Start 08/25/17 at 14: 00 Dextrose (D50w Syringe) 25 ml Q15M PRN IV DECREASED GLUCOSE Last administered on 09/05/17 12:07; Admin Dose 25 ML; Start 08/25/17 at 14:00 Dextrose (D50w Syringe) 50 ml Q15M PRN IV DECREASED GLUCOSE Last administered on 09/03/17 20:53; Admin Dose 50 ML; Start 08/25/17 at 14:00 Glucagon (Glucagen) 1 mg Q15M PRN IM DECREASED GLUCOSE; Start 08/25/17 at 14: 00 Glucose (Glutose) 15 gm Q15M PRN BUCCAL DECREASED GLUCOSE; Start 08/25/17 at 14:00 Acetaminophen (Tylenol Tab) 650 mg Q4H PRN PO PAIN AND OR ELEVATED TEMP Last administered on 08/26/17 17:06; Admin Dose 650 MG; Start 08/25/17 at 20:30 Miscellaneous Medication 10 ml 10 ml TID PO Last administered on 09/12/17 08: 56; Admin Dose 10 ML; Start 08/29/17 at 13:00 Leucovorin Calcium/Dextrose (Leucovorin Calcium Inj/D5W) 50 ml @ 200 mls/hr Q6H IV Last administered on 09/06/17 16:15; Admin Dose 200 MLS/HR; Start at 22:00; Status Future Hold Morphine Sulfate (morphine) 1 mg Q4H PRN IV LESS THAN 5/10 PAIN Last administered on 09/01/17 13:10; Admin Dose 1 MG; Start 08/30/17 at 20:00 Hydralazine HCl (Apresoline) 10 mg Q6H PRN IV ELEVATED SYSTOLIC BP Last administered on 09/11/17 01:24; Admin Dose 10 MG; Start 09/01/17 at 21:30 Silver Sulfadiazine (Thermazene 1% 400 Gm) 1 applic BID TOP Last administered on 09/12/17 08:59; Admin Dose 1 APPLIC; Start 09/04/17 at 14:00 Hydralazine HCl 10 mg 10 mg Q4H PRN IV ELEVATED BLOOD PRESSURE; Start at 01:00 Meropenem/Sodium Chloride (Merrem 500mg/50 ml(Pmx)) 50 ml @ 100 mls/hr Q12 IVPB Last administered on 09/12/17 08:56; Admin Dose 100 MLS/HR; Start 09/05 at 23:00 Heparin Sodium (Porcine) (Heparin (5000 Units/0.5 ml)) 5,000 unit Q8 SC Last administered on 09/12/17 06:09; Admin Dose 5,000 UNIT; Start 09/06/17 at 22: 00 Epoetin Kashif (Epogen (Esrd)) 10,000 units TuThSa@17 SC Last administered on 17:13; Admin Dose 10,000 UNITS; Start 09/07/17 at 17:00 Amlodipine Besylate (Norvasc) 10 mg DAILY PO Last administered on 09/12/17 08 :58; Admin Dose 10 MG; Start 09/08/17 at 09:00 Hydralazine HCl 25 mg 25 mg TID PO Last administered on 09/12/17 08:58; Admin Dose 25 MG; Start 09/08/17 at 13:00 Caspofungin/ Sodium Chloride (Cancidas/NS) 250 ml @ 250 mls/hr Q24H IVPB Last administered on 09/11/17 16:44; Admin Dose 250 MLS/HR; Start 09/10/17 at 15: 30 Potassium Chloride (Klor-Con 20) 20 meq DAILY PO Last administered on 08:57; Admin Dose 20 MEQ; Start 09/10/17 at 09:00 Bisoprolol Fumarate (Zebeta) 15 mg DAILY PO Last administered on 09/12/17 08: 57; Admin Dose 15 MG; Start 09/11/17 at 09:00 Insulin Glargine 13 unit 13 unit QHS SC Last administered on 09/11/17 22:22; Admin Dose 13 UNIT; Start 09/11/17 at 21:00 Vancomycin HCl (Vancocin) 250 ml @ 125 mls/hr Q72H IVPB ; Start 09/14/17 at 22 :00 Furosemide (Lasix) 40 mg ,,18 IV Last administered on 09/12/17 08:59; Admin Dose 40 MG; Start 09/12/17 at 09:00 Tj aMrie DO Sep 12, 2017 11:34
--- NOTE | 2017-09-12 11:41 | CONS ---
Date/Time of Note Date/Time of Note DATE: 09/12/17 TIME: 11:37 Assessment/Plan Assessment/Plan Chief Complaint/Hosp Course 61 y/o with 1. acute on-chronic kidney disease with no known baseline could be due to underlying sepsis/meds vs drug induced Cr improved significantly 2.62>2.5 > 2.4from 4'S, dont know the baseline on patient. Likely has CKD in past 2 Underlying acute tubular necrosis, possibly sepsis-induced due to cellulitis of the left lower extremity. 3 Likely underlying diabetic nephropathy, underlying hypertensive nephrosclerosis 4 pancytopenia could be due to sepsis, as well as drug-induced mthx/sulpha 5. Hyponatremia. resolved 6. Non gap Metabolic acidosis likely secondary to renal failure on bictra 7 Nephrotic range proteinuria 8 BLE atherosclerosis 9 SOB likely secondary to pul edema on iv lasix CT chest +pul edema, howeve rpneumonia? >pulmonary fibrosi> Mthx Toxicity 10 Hypokalemia due to diuresis on lasix Plan - Increase Lasix to 40 tid, labs am and chest xray tmw - KCL - Pt will likley need bronch if not improved - prednsione per pul - strict I and O - Fluid restriction - On vanco/travis/caspo - Concentrate all iv abx - Proteinuria wup negative so far HIV, Hep panel, RPR, SPEP/UPEP - Will consider uptitrating Losartan once Cr back to baseline Problems: Consultation Date/Type/Reason Admit Date/Time Aug 24, 2017 at 19:05 Initial Consult Date 08/29/17 Type of Consultation: Renal Referring Provider: GIA DUMONT 24 HR Interval Summary Free Text/Dictation Feels slight comfortable but still on oxygen 3 L Net neg 680ml Intake 1.5 L Exam/Review of Systems Vital Signs Vitals Vital Signs Date Time Temp Pulse Resp B/P Pulse Ox O2 Delivery O2 Flow Rate FiO2 09/12/17 11:20 98.1 78 18 146/68 96 09/12/17 09:31 Nasal Cannula 2.0 09/10/17 20:13 30 Intake and Output 09/11/17 09/11/17 09/12/17 15:00 23:00 07:00 Intake Total 50 ml 1350 ml 120 ml Output Total 600 ml 1600 ml Balance 50 ml 750 ml -1480 ml Exam Gen : Flat affect, pt bleeding noted from lips HEENT: Unremarkable Neck: Supple, full ROM Respiratory: few crackels at bases/ rhonchi present Cardiovascular: nl pulses, regular rate and rhythm Gastrointestinal: Soft, NT Extremities: Warml LLEXT edema/erythema/chronic hyperpigmentation changes distal pre-tibial Results Result Diagram: 09/12/1724 09/12/17 0524 Results 24 hrs Laboratory Tests Test 09/11/17 11:38 09/11/17 12:16 09/11/17 17:09 09/11/17 22:00 Bedside Glucose 143 267 H 227 H Vancomycin Level Trough 18.4 Test 09/12/17 02:25 09/12/17 05:24 09/12/17 07:45 09/12/17 11:30 Bedside Glucose 154 74 152 White Blood Count 17.0 #H Red Blood Count 2.66 L Hemoglobin 7.8 L Hematocrit 24.6 L Mean Corpuscular Volume 92.5 Mean Corpuscular Hemoglobin 29.3 Mean Corpuscular Hemoglobin Concent 31.7 L Red Cell Distribution Width 17.3 H Platelet Count 541 H Mean Platelet Volume 10.1 Neutrophils % 56.7 Lymphocytes % 18.0 Monocytes % 13.4 H Eosinophils % 0.1 Basophils % 0.2 Nucleated Red Blood Cells % 2.8 H Neutrophils # 9.6 H Lymphocytes # 3.1 H Monocytes # 2.3 H Eosinophils # 0.0 Basophils # 0.0 Nucleated Red Blood Cells # 0.5 H Sodium Level 135 Potassium Level 4.0 Chloride Level 101 Carbon Dioxide Level 29 Anion Gap 9 Blood Urea Nitrogen 53 H Creatinine 2.46 H Glucose Level 92 Calcium Level 8.3 L Phosphorus Level 3.7 Magnesium Level 2.3 Medications Medications Current Medications Ondansetron HCl (Zofran Inj) 4 mg Q6H PRN IV NAUSEA AND/OR VOMITING Last administered on 09/04/17 13:47; Admin Dose 4 MG; Start 08/25/17 at 08:00 Morphine Sulfate (morphine) 2 mg Q4H PRN IV 5-08/24 PAIN Last administered on 09/01/17 20:06; Admin Dose 2 MG; Start 08/25/17 at 08:00 Loratadine (Claritin) 10 mg DAILY PO Last administered on 09/12/17 08:58; Admin Dose 10 MG; Start 08/25/17 at 09:00 Losartan Potassium (Cozaar) 50 mg DAILY PO Last administered on 09/12/17 08: 58; Admin Dose 50 MG; Start 08/25/17 at 09:00 Miscellaneous Information 1 ea NOTE XX ; Start 08/25/17 at 14:00 Glucose (Glutose) 15 gm Q15M PRN PO DECREASED GLUCOSE; Start 08/25/17 at 14:00 Glucose (Glutose) 22.5 gm Q15M PRN PO DECREASED GLUCOSE; Start 08/25/17 at 14: 00 Dextrose (D50w Syringe) 25 ml Q15M PRN IV DECREASED GLUCOSE Last administered on 09/05/17 12:07; Admin Dose 25 ML; Start 08/25/17 at 14:00 Dextrose (D50w Syringe) 50 ml Q15M PRN IV DECREASED GLUCOSE Last administered on 09/03/17 20:53; Admin Dose 50 ML; Start 08/25/17 at 14:00 Glucagon (Glucagen) 1 mg Q15M PRN IM DECREASED GLUCOSE; Start 08/25/17 at 14: 00 Glucose (Glutose) 15 gm Q15M PRN BUCCAL DECREASED GLUCOSE; Start 08/25/17 at 14:00 Acetaminophen (Tylenol Tab) 650 mg Q4H PRN PO PAIN AND OR ELEVATED TEMP Last administered on 08/26/17 17:06; Admin Dose 650 MG; Start 08/25/17 at 20:30 Miscellaneous Medication 10 ml 10 ml TID PO Last administered on 09/12/17 08: 56; Admin Dose 10 ML; Start 08/29/17 at 13:00 Leucovorin Calcium/Dextrose (Leucovorin Calcium Inj/D5W) 50 ml @ 200 mls/hr Q6H IV Last administered on 09/06/17 16:15; Admin Dose 200 MLS/HR; Start at 22:00; Status Future Hold Morphine Sulfate (morphine) 1 mg Q4H PRN IV LESS THAN 5/10 PAIN Last administered on 09/01/17 13:10; Admin Dose 1 MG; Start 08/30/17 at 20:00 Hydralazine HCl (Apresoline) 10 mg Q6H PRN IV ELEVATED SYSTOLIC BP Last administered on 09/11/17 01:24; Admin Dose 10 MG; Start 09/01/17 at 21:30 Silver Sulfadiazine (Thermazene 1% 400 Gm) 1 applic BID TOP Last administered on 09/12/17 08:59; Admin Dose 1 APPLIC; Start 09/04/17 at 14:00 Hydralazine HCl 10 mg 10 mg Q4H PRN IV ELEVATED BLOOD PRESSURE; Start at 01:00 Meropenem/Sodium Chloride (Merrem 500mg/50 ml(Pmx)) 50 ml @ 100 mls/hr Q12 IVPB Last administered on 09/12/17 08:56; Admin Dose 100 MLS/HR; Start 09/05 at 23:00 Heparin Sodium (Porcine) (Heparin (5000 Units/0.5 ml)) 5,000 unit Q8 SC Last administered on 09/12/17 06:09; Admin Dose 5,000 UNIT; Start 09/06/17 at 22: 00 Epoetin Kashif (Epogen (Esrd)) 10,000 units TuThSa@17 SC Last administered on 17:13; Admin Dose 10,000 UNITS; Start 09/07/17 at 17:00 Amlodipine Besylate (Norvasc) 10 mg DAILY PO Last administered on 09/12/17 08 :58; Admin Dose 10 MG; Start 09/08/17 at 09:00 Hydralazine HCl 25 mg 25 mg TID PO Last administered on 09/12/17 08:58; Admin Dose 25 MG; Start 09/08/17 at 13:00 Caspofungin/ Sodium Chloride (Cancidas/NS) 250 ml @ 250 mls/hr Q24H IVPB Last administered on 09/11/17 16:44; Admin Dose 250 MLS/HR; Start 09/10/17 at 15: 30 Potassium Chloride (Klor-Con 20) 20 meq DAILY PO Last administered on 08:57; Admin Dose 20 MEQ; Start 09/10/17 at 09:00 Bisoprolol Fumarate (Zebeta) 15 mg DAILY PO Last administered on 09/12/17 08: 57; Admin Dose 15 MG; Start 09/11/17 at 09:00 Insulin Glargine 13 unit 13 unit QHS SC Last administered on 09/11/17 22:22; Admin Dose 13 UNIT; Start 09/11/17 at 21:00 Vancomycin HCl (Vancocin) 250 ml @ 125 mls/hr Q72H IVPB ; Start 09/14/17 at 22 :00 Furosemide (Lasix) 40 mg ,, IV Last administered on 09/12/17t 08:59; Admin Dose 40 MG; Start 09/12/17 at 09:00 ARDEN JACKMAN MD Sep 12, 2017 11:41
--- NOTE | 2017-09-12 13:19 | PN ---
Date/Time of Note Date/Time of Note DATE: 09/12/17 TIME: 13:18 Assessment/Plan VTE Prophylaxis VTE Prophylaxis Intervention: heparin Lines/Catheters IV Catheter Type (from Nrs): Saline Lock Urinary Cath still in place: Yes Reason Cath still needed: terminal illness/intractable pain Assessment/Plan Chief Complaint/Hosp Course Patient is a 61-year-old female with a past medical history of hypertension, diabetes, CKD who presented for left lower extremity cellulitis. Assessment/Plan #shortness of breath. Bilateral Pneumonia, - Patient found to have b/l PNA on chest xray - On antibiotics and changed to Meropenem per ID - Pulmonology consultation placed and appreciated recommendations, doubts PNA process - On Neb treatments -tapering steroids, stopped after today -? other etiology, CT chest noted - on lasix,increased dose today, but may need bronch at some point #pulmonary edema - likely etiology given elevated BNP and xray -continue lasix, careful given Cr -echo noted #acute on chronic diastolic congestive heart failure -continue lasix -cards recs appreciated -echo noted #. Left lower extremity cellulitis - ID and Surgery on board. Recommendations appreciated - Antibiotic per ID - CT LE showed cellulitis and no evidence of osteomyelitis. Xray LE also performed and no osteomyelitis appreciated. -gen surg/vascular surg do not feel any acute intervention is needed -wraps #. Mucositis 2/2 methotrexate use- improving - diphen/lido/mal oral solution ordered. Morphine if pain remain intolerable for PO intake - Tolerating soft mech diet #. Pancytopenia- improving -now leukocytosis, possible due to filgrastim per heme/onc - No transfusions needed today - Hematology on board and recommendations appreciated. - s/p multiple blood transfusions and plt transfusions. #leukocytosis -profound, ? steroids combined with neupogen. -downtrending #. Neutropenia- resolved - WBC downtrending now <30 and Neupogen no longer on board - Will continue to monitor - Heme on board and recommendations appreciated #. BK vs BK on CKD - Nephrology on board and recommendations appreciated. - Cr elevated, but lower than admission, likely chronic component - Monitor UOP - HIV negative, KASSY negative #. Hypokalemia - stable #. Eosinophilia - normalized after d/c sulfasalazine and mtx #. Vascular insufficiency - Vascular surgery on board and recommendations appreciated. No current vascular intervention as the patient has not developed any gangrene or ulcers - Will need to follow up as outpatient due to LE atherosclerosis DISPO: Will need to finalize abx per ID, diurese, watch white count, possible bronch and monitor resp status and dependence on O2, when showing signs of stability, DC to SNF once on stable dose of lasix oral and attempt to reduce O2 dependence. 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 Problems: Subjective 24 Hr Interval Summary Free Text/Dictation no acute changes Exam/Review of Systems Vital Signs Vitals Vital Signs Date Time Temp Pulse Resp B/P Pulse Ox O2 Delivery O2 Flow Rate FiO2 09/12/17 12:00 79 09/12/17 11:20 98.1 18 146/68 96 09/12/17 09:31 Nasal Cannula 2.0 09/10/17 20:13 30 Intake and Output 09/11/17 09/11/17 09/12/17 15:00 23:00 07:00 Intake Total 50 ml 1350 ml 120 ml Output Total 600 ml 1600 ml Balance 50 ml 750 ml -1480 ml Exam Physical exam General: Patient is laying in bed and responds appropriately Mentation: Patient is alert and oriented 4, Head: Normocephalic atraumatic Eyes: EOMI, pupils reactive to light Neck: Supple, nontender, midline Respiratory: coarse to auscultation bilaterally, with wheezing Cardiovascular: regular rate, no obvious murmurs Gastrointestinal: non-tender to palpation, bowel sounds heard. Neurological: Moves all extremities spontaneously Skin: left leg very mildly erythematous, mild tenderness. Results Result Diagram: 09/12/1752309/12/17523 Results 24 hrs Laboratory Tests Test 09/11/17 17:09 09/11/17 22:00 09/12/17 02:25 09/12/17 05:24 Bedside Glucose 267 H 227 H 154 White Blood Count 17.0 #H Red Blood Count 2.66 L Hemoglobin 7.8 L Hematocrit 24.6 L Mean Corpuscular Volume 92.5 Mean Corpuscular Hemoglobin 29.3 Mean Corpuscular Hemoglobin Concent 31.7 L Red Cell Distribution Width 17.3 H Platelet Count 541 H Mean Platelet Volume 10.1 Neutrophils % 56.7 Lymphocytes % 18.0 Monocytes % 13.4 H Eosinophils % 0.1 Basophils % 0.2 Nucleated Red Blood Cells % 2.8 H Neutrophils # 9.6 H Lymphocytes # 3.1 H Monocytes # 2.3 H Eosinophils # 0.0 Basophils # 0.0 Nucleated Red Blood Cells # 0.5 H Sodium Level 135 Potassium Level 4.0 Chloride Level 101 Carbon Dioxide Level 29 Anion Gap 9 Blood Urea Nitrogen 53 H Creatinine 2.46 H Glucose Level 92 Calcium Level 8.3 L Phosphorus Level 3.7 Magnesium Level 2.3 Test 09/12/17 07:45 09/12/17 11:30 Bedside Glucose 74 152 Medications Medications Current Medications Ondansetron HCl (Zofran Inj) 4 mg Q6H PRN IV NAUSEA AND/OR VOMITING Last administered on 09/04/17 13:47; Admin Dose 4 MG; Start 08/25/17 at 08:00 Morphine Sulfate (morphine) 2 mg Q4H PRN IV PAIN Last administered on 09/01/17 20:06; Admin Dose 2 MG; Start 08/25/17 at 08:00 Loratadine (Claritin) 10 mg DAILY PO Last administered on 09/12/17 08:58; Admin Dose 10 MG; Start 08/25/17 at 09:00 Losartan Potassium (Cozaar) 50 mg DAILY PO Last administered on 09/12/17 08: 58; Admin Dose 50 MG; Start 08/25/17 at 09:00 Miscellaneous Information 1 ea NOTE XX ; Start 08/25/17 at 14:00 Glucose (Glutose) 15 gm Q15M PRN PO DECREASED GLUCOSE; Start 08/25/17 at 14:00 Glucose (Glutose) 22.5 gm Q15M PRN PO DECREASED GLUCOSE; Start 08/25/17 at 14: 00 Dextrose (D50w Syringe) 25 ml Q15M PRN IV DECREASED GLUCOSE Last administered on 09/05/17 12:07; Admin Dose 25 ML; Start 08/25/17 at 14:00 Dextrose (D50w Syringe) 50 ml Q15M PRN IV DECREASED GLUCOSE Last administered on 09/03/17 20:53; Admin Dose 50 ML; Start 08/25/17 at 14:00 Glucagon (Glucagen) 1 mg Q15M PRN IM DECREASED GLUCOSE; Start 08/25/17 at 14: 00 Glucose (Glutose) 15 gm Q15M PRN BUCCAL DECREASED GLUCOSE; Start 08/25/17 at 14:00 Acetaminophen (Tylenol Tab) 650 mg Q4H PRN PO PAIN AND OR ELEVATED TEMP Last administered on 08/26/17 17:06; Admin Dose 650 MG; Start 08/25/17 at 20:30 Miscellaneous Medication 10 ml 10 ml TID PO Last administered on 09/12/17 08: 56; Admin Dose 10 ML; Start 08/29/17 at 13:00 Leucovorin Calcium/Dextrose (Leucovorin Calcium Inj/D5W) 50 ml @ 200 mls/hr Q6H IV Last administered on 09/06/17 16:15; Admin Dose 200 MLS/HR; Start at 22:00; Status Future Hold Morphine Sulfate (morphine) 1 mg Q4H PRN IV LESS THAN 5/10 PAIN Last administered on 09/01/17 13:10; Admin Dose 1 MG; Start 08/30/17 at 20:00 Hydralazine HCl (Apresoline) 10 mg Q6H PRN IV ELEVATED SYSTOLIC BP Last administered on 09/11/17 01:24; Admin Dose 10 MG; Start 09/01/17 at 21:30 Silver Sulfadiazine (Thermazene 1% 400 Gm) 1 applic BID TOP Last administered on 09/12/17 08:59; Admin Dose 1 APPLIC; Start 09/04/17 at 14:00 Hydralazine HCl 10 mg 10 mg Q4H PRN IV ELEVATED BLOOD PRESSURE; Start at 01:00 Meropenem/Sodium Chloride (Merrem 500mg/50 ml(Pmx)) 50 ml @ 100 mls/hr Q12 IVPB Last administered on 09/12/17 08:56; Admin Dose 100 MLS/HR; Start 09/05 at 23:00 Heparin Sodium (Porcine) (Heparin (5000 Units/0.5 ml)) 5,000 unit Q8 SC Last administered on 09/12/17 06:09; Admin Dose 5,000 UNIT; Start 09/06/17 at 22: 00 Epoetin Kashif (Epogen (Esrd)) 10,000 units TuThSa@17 SC Last administered on 17:13; Admin Dose 10,000 UNITS; Start 09/07/17 at 17:00 Amlodipine Besylate (Norvasc) 10 mg DAILY PO Last administered on 09/12/17 08 :58; Admin Dose 10 MG; Start 09/08/17 at 09:00 Hydralazine HCl 25 mg 25 mg TID PO Last administered on 09/12/17 08:58; Admin Dose 25 MG; Start 09/08/17 at 13:00 Caspofungin/ Sodium Chloride (Cancidas/NS) 250 ml @ 250 mls/hr Q24H IVPB Last administered on 09/11/17 16:44; Admin Dose 250 MLS/HR; Start 09/10/17 at 15: 30 Potassium Chloride (Klor-Con 20) 20 meq DAILY PO Last administered on 08:57; Admin Dose 20 MEQ; Start 09/10/17 at 09:00 Bisoprolol Fumarate (Zebeta) 15 mg DAILY PO Last administered on 09/12/17 08: 57; Admin Dose 15 MG; Start 09/11/17 at 09:00 Insulin Glargine 13 unit 13 unit QHS SC Last administered on 09/11/17 22:22; Admin Dose 13 UNIT; Start 09/11/17 at 21:00 Vancomycin HCl (Vancocin) 250 ml @ 125 mls/hr Q72H IVPB ; Start 09/14/17 at 22 :00 Furosemide (Lasix) 40 mg 09,13,18 IV Last administered on 09/12/17 08:59; Admin Dose 40 MG; Start 09/12/17 at 09:00 GIA DUMONT Sep 12, 2017 13:19
[2017-09-12] MEDS: CASPOFUNGIN 50 MG in SOD CHLORIDE 0.9% 250 ML IVPB SCH (14:50)
[2017-09-12] MEDS: INSULIN GLARGINE [LANtus] 3 ML PEN SC SCH (22:53)
[2017-09-13] VITALS (9 sets, daily range): BP systolic 145–190; BP diastolic 65–78; PULSE 70–86; RESP 17–20
[2017-09-13] MEDS: ALBUTEROL/IPRATROPIUM (NEB) 3 ML AMP HHN SCH ×6 (00:58→21:00)
[2017-09-13] MEDS: HEPARIN 5,000 UNIT/0.5 ML VIAL SC SCH ×3 (06:12→22:58)
[2017-09-13] MEDS: hydrALAzine 20 MG INJ IV PRN (06:46)
[2017-09-13] MEDS: ACCU-CHEK XX SCH ×4 (08:00→20:40)
[2017-09-13] MEDS: INSULIN ASPART [NOVOLOG] 3 ML PEN SC SCH ×4 (08:12→20:31)
[2017-09-13] MEDS: LOSARTAN 50 MG TAB PO SCH (08:13)
[2017-09-13] MEDS: LORATADINE 10 MG TAB PO SCH (08:14)
[2017-09-13] MEDS: POTASSIUM CHLORIDE (SR) 20 MEQ TAB PO SCH (08:14)
[2017-09-13] MEDS: AMLODIPINE 10 MG TAB PO SCH (08:14)
[2017-09-13] MEDS: BISOPROLOL 5 MG TAB PO SCH (08:14)
[2017-09-13] MEDS: MEROPENEM 500MG/50 ML (PMX) 50 ML IVPB SCH ×2 (08:15→20:27)
[2017-09-13] MEDS: FUROSEMIDE 40 MG INJ IV SCH ×3 (08:15→17:12)
[2017-09-13] MEDS: SILVER SULFADIAZINE 1% 400 GM CR TOP SCH ×2 (08:16→20:41)
--- NOTE | 2017-09-13 08:22 | RADRPT ---
PROCEDURE: XR Chest. CLINICAL INDICATION: Shortness of breath. TECHNIQUE: Single frontal view. COMPARISON: 09/09/2017. FINDINGS: There is diffuse bilateral pulmonary air space disease consistent with pulmonary edema or bilateral multifocal pneumonia, slightly improved. The heart is enlarged. There are small bilateral pleural effusions. There is no pneumothorax. IMPRESSION: 1. Slightly improved appearance of the lungs. 2. Cardiomegaly. 3. Small bilateral pleural effusions. 4. Otherwise unchanged chest radiograph. RPTAT: QQ .Justice Carrizales MD, MD Date Time Electronically viewed and signed by .Justice Carirzales MD, MD on 09/13/2017 08:22 .R/
[2017-09-13] MEDS: DIPHENHYD/MYLANTA/LIDO (PO SYG) PO SCH ×3 (09:00→20:27)
--- NOTE | 2017-09-13 11:58 | CONS ---
Date/Time of Note Date/Time of Note DATE: 09/13/17 TIME: 11:57 Consult Date/Type/Reason Admit Date/Time Aug 24, 2017 at 19:05 Initial Consult Date 08/31/17 Type of Consultation: Pulmonary Ordering Provider: GIA DUMONT Subjective Patient remains stable. No new events. Looks more comfortable this morning. Objective Vital Signs Date Time Temp Pulse Resp B/P Pulse Ox O2 Delivery O2 Flow Rate FiO2 09/13/17 09:20 82 20 94 Nasal Cannula 2.0 28 09/13/17 07:29 98.1 190/78 Intake and Output 09/12/17 09/12/17 09/13/17 15:00 23:00 07:00 Intake Total 50 ml 850 ml 120 ml Output Total 2000 ml 2000 ml Balance 50 ml -1150 ml -1880 ml Exam GENERAL: Obese lady comfortable at rest. VITAL SIGNS: per chart NECK: Supple. No JVD or lymphadenopathy. CARDIAC EXAM: S1, S2. No added sounds or murmurs. CHEST: Diminished air entry both lung bases. ABDOMEN: Soft, nontender. No guarding or rebound. EXTREMITIES: No cyanosis, clubbing or edema. NEUROLOGIC: Generalized weakness. No focal deficits. Results/Medications Result Diagram: 09/13/17 0550 09/13/17 0841 Results 24 hrs Laboratory Tests Test 09/12/17 17:08 09/12/17 22:46 09/13/17 02:12 09/13/17 05:50 Bedside Glucose 196 245 H 186 White Blood Count 16.4 H Red Blood Count 2.73 L Hemoglobin 8.2 L Hematocrit 25.7 L Mean Corpuscular Volume 94.1 Mean Corpuscular Hemoglobin 30.0 Mean Corpuscular Hemoglobin Concent 31.9 L Red Cell Distribution Width 17.7 H Platelet Count 534 H Mean Platelet Volume 10.0 Neutrophils % Segmented Neutrophils % (Manual) 72 Band Neutrophils % (Manual) 3 Lymphocytes % Lymphocytes % (Manual) 14 L Monocytes % Monocytes % (Manual) 3 Eosinophils % Eosinophils % (Manual) 1 Basophils % Metamyelocytes % (manual) 4 H Myelocytes % (Manual) 3 H Nucleated Red Blood Cells % 1.5 H Neutrophils # Neutrophils # (Manual) 11.9 H Band Neutrophils # 0.4 Absolute Lymphocytes (Manual) 2.2 Lymphocytes # Monocytes # Absolute Monocytes (Manual) 0.4 Eosinophils # Basophils # Metamyelocytes # 0.6 H Myelocytes # 0.4 H Nucleated Red Blood Cells # Platelet Estimate NORMAL Giant Platelets 2 H Polychromasia 1+ Poikilocytosis 1+ Anisocytosis 1+ Microcytosis 1+ Test 09/13/17 08:11 09/13/17 08:41 09/13/17 11:46 Bedside Glucose 117 106 Sodium Level 135 Potassium Level 4.1 Chloride Level 98 Carbon Dioxide Level 30 Anion Gap 11 Blood Urea Nitrogen 48 H Creatinine 2.43 H Glucose Level 103 Calcium Level 8.3 L Phosphorus Level 3.6 Magnesium Level 2.1 Medications Current Medications Ondansetron HCl (Zofran Inj) 4 mg Q6H PRN IV NAUSEA AND/OR VOMITING Last administered on 09/04/17 13:47; Admin Dose 4 MG; Start 08/25/17 at 08:00 Morphine Sulfate (morphine) 2 mg Q4H PRN IV PAIN Last administered on 09/01/17 20:06; Admin Dose 2 MG; Start 08/25/17 at 08:00 Loratadine (Claritin) 10 mg DAILY PO Last administered on 09/13/17 08:14; Admin Dose 10 MG; Start 08/25/17 at 09:00 Losartan Potassium (Cozaar) 50 mg DAILY PO Last administered on 09/13/17 08: 13; Admin Dose 50 MG; Start 08/25/17 at 09:00 Miscellaneous Information 1 ea NOTE XX ; Start 08/25/17 at 14:00 Glucose (Glutose) 15 gm Q15M PRN PO DECREASED GLUCOSE; Start 08/25/17 at 14:00 Glucose (Glutose) 22.5 gm Q15M PRN PO DECREASED GLUCOSE; Start 08/25/17 at 14: 00 Dextrose (D50w Syringe) 25 ml Q15M PRN IV DECREASED GLUCOSE Last administered on 09/05/17 12:07; Admin Dose 25 ML; Start 08/25/17 at 14:00 Dextrose (D50w Syringe) 50 ml Q15M PRN IV DECREASED GLUCOSE Last administered on 09/03/17 20:53; Admin Dose 50 ML; Start 08/25/17 at 14:00 Glucagon (Glucagen) 1 mg Q15M PRN IM DECREASED GLUCOSE; Start 08/25/17 at 14: 00 Glucose (Glutose) 15 gm Q15M PRN BUCCAL DECREASED GLUCOSE; Start 08/25/17 at 14:00 Acetaminophen (Tylenol Tab) 650 mg Q4H PRN PO PAIN AND OR ELEVATED TEMP Last administered on 08/26/17 17:06; Admin Dose 650 MG; Start 08/25/17 at 20:30 Miscellaneous Medication (Bax Susp) 10 ml TID PO Last administered on 21:12; Admin Dose 10 ML; Start 08/29/17 at 13:00 Morphine Sulfate (morphine) 1 mg Q4H PRN IV LESS THAN 5/10 PAIN Last administered on 09/01/17 13:10; Admin Dose 1 MG; Start 08/30/17 at 20:00 Hydralazine HCl (Apresoline) 10 mg Q6H PRN IV ELEVATED SYSTOLIC BP Last administered on 09/13/17 06:46; Admin Dose 10 MG; Start 09/01/17 at 21:30 Silver Sulfadiazine (Thermazene 1% 400 Gm) 1 applic BID TOP Last administered on 09/13/17 08:16; Admin Dose 1 APPLIC; Start 09/04/17 at 14:00 Hydralazine HCl 10 mg 10 mg Q4H PRN IV ELEVATED BLOOD PRESSURE; Start at 01:00 Meropenem/Sodium Chloride (Merrem 500mg/50 ml(Pmx)) 50 ml @ 100 mls/hr Q12 IVPB Last administered on 09/13/17 08:15; Admin Dose 100 MLS/HR; Start 09/05 at 23:00 Heparin Sodium (Porcine) (Heparin (5000 Units/0.5 ml)) 5,000 unit Q8 SC Last administered on 09/13/17 06:12; Admin Dose 5,000 UNIT; Start 09/06/17 at 22: 00 Epoetin Kashif (Epogen (Esrd)) 10,000 units TuThSa@17 SC Last administered on 17:13; Admin Dose 10,000 UNITS; Start 09/07/17 at 17:00 Amlodipine Besylate (Norvasc) 10 mg DAILY PO Last administered on 09/13/17 08 :14; Admin Dose 10 MG; Start 09/08/17 at 09:00 Hydralazine HCl 25 mg 25 mg TID PO Last administered on 09/13/17 08:14; Admin Dose 25 MG; Start 09/08/17 at 13:00 Caspofungin/ Sodium Chloride (Cancidas/NS) 250 ml @ 250 mls/hr Q24H IVPB Last administered on 09/12/17 14:50; Admin Dose 250 MLS/HR; Start 09/10/17 at 15: 30 Potassium Chloride (Klor-Con 20) 20 meq DAILY PO Last administered on 08:14; Admin Dose 20 MEQ; Start 09/10/17 at 09:00 Bisoprolol Fumarate (Zebeta) 15 mg DAILY PO Last administered on 09/13/17 08: 14; Admin Dose 15 MG; Start 09/11/17 at 09:00 Insulin Glargine 13 unit 13 unit QHS SC Last administered on 09/12/17 22:53; Admin Dose 13 UNIT; Start 09/11/17 at 21:00 Vancomycin HCl (Vancocin) 250 ml @ 125 mls/hr Q72H IVPB ; Start 09/14/17 at 22 :00 Furosemide (Lasix) 40 mg 09,13,18 IV Last administered on 09/13/17 08:15; Admin Dose 40 MG; Start 09/12/17 at 09:00 Assessment/Plan Chief Complaint/Hosp Course IMPRESSION: 1. Hypoxemic respiratory insufficiency in the setting of hypertension, chronic kidney disease and volume overload. 2. Chest x-ray better today. Clinically improved. 3. Persistent infiltrates concerning for inflammatory versus infectious process. Improving leukocytosis. RECOMMENDATIONS: 1. Continue antibiotics, findings noted. 2. renal recommendations. Continue diuresis as tolerated 3. Cardiac recommendations 4. Aspiration precautions 5. Decrease FiO2 as tolerated PT evaluation [facility] eval Problems: TANI TOLEDO MD, [facility] Sep 13, 2017 11:58
--- NOTE | 2017-09-13 12:21 | PN ---
Date/Time of Note Date/Time of Note DATE: 09/13/17 TIME: 12:21 Assessment/Plan VTE Prophylaxis VTE Prophylaxis Intervention: contraindicated Lines/Catheters IV Catheter Type (from Nrsg): Saline Lock Urinary Cath still in place: Yes Reason Cath still needed: skin wounds contaminated by urine Assessment/Plan Assessment/Plan 1. Acute respiratory distress secondary to Bilateral Pneumonia, - Patient found to have b/l PNA on initial chest xray - On antibiotics per ID - Pulmonology consultation placed and appreciated recommendations, believe more related to fluid overload and needs to be further diuresed - On Neb treatments - Completed course of steroids - Continue on Lasix which was increased yesterday 2. Pulmonary edema- improving - Cardiology on board and recommendations appreciated - On Lasix which was increased yesterday - Repeat CXR shows improvement with small b/l effusions 3. Acute on chronic diastolic congestive heart failure - continue lasix - Cardiology on board and recommendations appreciated - ECHO results noted 4. Left lower extremity cellulitis- resolving - ID and Surgery on board. Recommendations appreciated - Antibiotic per ID - CT LE showed cellulitis and no evidence of osteomyelitis. Xray LE also performed and no osteomyelitis appreciated. -gen surg/vascular surg do not feel any acute intervention is needed 5. Mucositis 2/2 methotrexate use- improving - diphen/lido/mal oral solution ordered. Morphine if pain remain intolerable for PO intake - Tolerating soft mech diet 6. Pancytopenia- improved - now leukocytosis, possible due to filgrastim per heme/onc - Hematology on board and recommendations appreciated. - s/p multiple blood transfusions and plt transfusions. - Plts elevated and may be reactive 7. Leukocytosis- trending down - Continue to monitor. May be secondary to steroids vs Neupogen - downtrending 8. Neutropenia- resolved - WBC downtrending now <30 and Neupogen no longer on board - Will continue to monitor - Heme on board and recommendations appreciated 9. BK vs BK on CKD - Nephrology on board and recommendations appreciated. - Cr elevated, but lower than admission, likely chronic component - Monitor UOP - HIV negative, KASSY negative 10. Hypokalemia- resolved 11. Eosinophilia - normalized after d/c sulfasalazine and mtx 12. Vascular insufficiency - Vascular surgery on board and recommendations appreciated. No current vascular intervention as the patient has not developed any gangrene or ulcers - Will need to follow up as outpatient due to LE atherosclerosis 13. Disposition - Continue diuresis - Antibiotics per ID - when stable, d/c to SNF. Will discuss with family about d/c to [facility] Subjective 24 Hr Interval Summary Free Text/Dictation Patient resting comfortably and denies any new issues and in no acute distress. Exam/Review of Systems Vital Signs Vitals Vital Signs Date Time Temp Pulse Resp B/P Pulse Ox O2 Delivery O2 Flow Rate FiO2 09/13/17 09:20 82 20 94 Nasal Cannula 2.0 28 09/13/17 07:29 98.1 190/78 Intake and Output 09/12/17 09/12/17 09/13/17 15:00 23:00 07:00 Intake Total 50 ml 850 ml 120 ml Output Total 2000 ml 2000 ml Balance 50 ml -1150 ml -1880 ml Exam General: Patient is resting comfortably and responds appropriately. NAD Mentation: Patient is alert and oriented 4, Head: Normocephalic atraumatic Eyes: EOMI, pupils reactive to light Neck: Supple, nontender, midline Respiratory: coarse to auscultation bilaterally, no wheezing Cardiovascular: regular rate, no obvious murmurs Gastrointestinal: non-tender to palpation, bowel sounds heard. soft, nondistended Neurological: Moves all extremities spontaneously Skin: improvement in discoloration LLE, dryness of skin but less erythema and mild tenderness Results Result Diagram: 09/13/17 0550 09/13/17 0841 Results 24 hrs Laboratory Tests Test 09/12/17 17:08 09/12/17 22:46 09/13/17 02:12 09/13/17 05:50 Bedside Glucose 196 245 H 186 White Blood Count 16.4 H Red Blood Count 2.73 L Hemoglobin 8.2 L Hematocrit 25.7 L Mean Corpuscular Volume 94.1 Mean Corpuscular Hemoglobin 30.0 Mean Corpuscular Hemoglobin Concent 31.9 L Red Cell Distribution Width 17.7 H Platelet Count 534 H Mean Platelet Volume 10.0 Neutrophils % Segmented Neutrophils % (Manual) 72 Band Neutrophils % (Manual) 3 Lymphocytes % Lymphocytes % (Manual) 14 L Monocytes % Monocytes % (Manual) 3 Eosinophils % Eosinophils % (Manual) 1 Basophils % Metamyelocytes % (manual) 4 H Myelocytes % (Manual) 3 H Nucleated Red Blood Cells % 1.5 H Neutrophils # Neutrophils # (Manual) 11.9 H Band Neutrophils # 0.4 Absolute Lymphocytes (Manual) 2.2 Lymphocytes # Monocytes # Absolute Monocytes (Manual) 0.4 Eosinophils # Basophils # Metamyelocytes # 0.6 H Myelocytes # 0.4 H Nucleated Red Blood Cells # Platelet Estimate NORMAL Giant Platelets 2 H Polychromasia 1+ Poikilocytosis 1+ Anisocytosis 1+ Microcytosis 1+ Test 09/13/17 08:11 09/13/17 08:41 09/13/17 11:46 Bedside Glucose 117 106 Sodium Level 135 Potassium Level 4.1 Chloride Level 98 Carbon Dioxide Level 30 Anion Gap 11 Blood Urea Nitrogen 48 H Creatinine 2.43 H Glucose Level 103 Calcium Level 8.3 L Phosphorus Level 3.6 Magnesium Level 2.1 Medications Medications Current Medications Ondansetron HCl (Zofran Inj) 4 mg Q6H PRN IV NAUSEA AND/OR VOMITING Last administered on 09/04/17 13:47; Admin Dose 4 MG; Start 08/25/17 at 08:00 Morphine Sulfate (morphine) 2 mg Q4H PRN IV PAIN Last administered on 09/01/17 20:06; Admin Dose 2 MG; Start 08/25/17 at 08:00 Loratadine (Claritin) 10 mg DAILY PO Last administered on 09/13/17 08:14; Admin Dose 10 MG; Start 08/25/17 at 09:00 Losartan Potassium (Cozaar) 50 mg DAILY PO Last administered on 09/13/17 08: 13; Admin Dose 50 MG; Start 08/25/17 at 09:00 Miscellaneous Information 1 ea NOTE XX ; Start 08/25/17 at 14:00 Glucose (Glutose) 15 gm Q15M PRN PO DECREASED GLUCOSE; Start 08/25/17 at 14:00 Glucose (Glutose) 22.5 gm Q15M PRN PO DECREASED GLUCOSE; Start 08/25/17 at 14: 00 Dextrose (D50w Syringe) 25 ml Q15M PRN IV DECREASED GLUCOSE Last administered on 09/05/17 12:07; Admin Dose 25 ML; Start 08/25/17 at 14:00 Dextrose (D50w Syringe) 50 ml Q15M PRN IV DECREASED GLUCOSE Last administered on 09/03/17 20:53; Admin Dose 50 ML; Start 08/25/17 at 14:00 Glucagon (Glucagen) 1 mg Q15M PRN IM DECREASED GLUCOSE; Start 08/25/17 at 14: 00 Glucose (Glutose) 15 gm Q15M PRN BUCCAL DECREASED GLUCOSE; Start 08/25/17 at 14:00 Acetaminophen (Tylenol Tab) 650 mg Q4H PRN PO PAIN AND OR ELEVATED TEMP Last administered on 08/26/17 17:06; Admin Dose 650 MG; Start 08/25/17 at 20:30 Miscellaneous Medication (Bax Susp) 10 ml TID PO Last administered on 12:13; Admin Dose 10 ML; Start 08/29/17 at 13:00 Morphine Sulfate (morphine) 1 mg Q4H PRN IV LESS THAN 5/10 PAIN Last administered on 09/01/17 13:10; Admin Dose 1 MG; Start 08/30/17 at 20:00 Hydralazine HCl (Apresoline) 10 mg Q6H PRN IV ELEVATED SYSTOLIC BP Last administered on 09/13/17 06:46; Admin Dose 10 MG; Start 09/01/17 at 21:30 Silver Sulfadiazine (Thermazene 1% 400 Gm) 1 applic BID TOP Last administered on 09/13/17 08:16; Admin Dose 1 APPLIC; Start 09/04/17 at 14:00 Hydralazine HCl 10 mg 10 mg Q4H PRN IV ELEVATED BLOOD PRESSURE; Start at 01:00 Meropenem/Sodium Chloride (Merrem 500mg/50 ml(Pmx)) 50 ml @ 100 mls/hr Q12 IVPB Last administered on 09/13/17 08:15; Admin Dose 100 MLS/HR; Start 09/05 at 23:00 Heparin Sodium (Porcine) (Heparin (5000 Units/0.5 ml)) 5,000 unit Q8 SC Last administered on 09/13/17 06:12; Admin Dose 5,000 UNIT; Start 09/06/17 at 22: 00 Epoetin Kashif (Epogen (Esrd)) 10,000 units TuThSa@17 SC Last administered on 17:13; Admin Dose 10,000 UNITS; Start 09/07/17 at 17:00 Amlodipine Besylate (Norvasc) 10 mg DAILY PO Last administered on 09/13/17 08 :14; Admin Dose 10 MG; Start 09/08/17 at 09:00 Hydralazine HCl 25 mg 25 mg TID PO Last administered on 09/13/17 12:14; Admin Dose 25 MG; Start 09/08/17 at 13:00 Caspofungin/ Sodium Chloride (Cancidas/NS) 250 ml @ 250 mls/hr Q24H IVPB Last administered on 09/12/17 14:50; Admin Dose 250 MLS/HR; Start 09/10/17 at 15: 30 Potassium Chloride (Klor-Con 20) 20 meq DAILY PO Last administered on 08:14; Admin Dose 20 MEQ; Start 09/10/17 at 09:00 Bisoprolol Fumarate (Zebeta) 15 mg DAILY PO Last administered on 09/13/17 08: 14; Admin Dose 15 MG; Start 09/11/17 at 09:00 Insulin Glargine 13 unit 13 unit QHS SC Last administered on 09/12/17 22:53; Admin Dose 13 UNIT; Start 09/11/17 at 21:00 Vancomycin HCl (Vancocin) 250 ml @ 125 mls/hr Q72H IVPB ; Start 09/14/17 at 22 :00 Furosemide (Lasix) 40 mg ,,18 IV Last administered on 09/13/17 12:14; Admin Dose 40 MG; Start 09/12/17 at 09:00 JOANA BARKLEY MD Sep 13, 2017 12:21
--- NOTE | 2017-09-13 15:26 | CONS ---
Date/Time of Note Date/Time of Note DATE: 09/13/17 TIME: 15:25 Assessment/Plan Assessment/Plan Additional Assessment/Plan Acute decompensated diastolic congestive heart failure Preserved ejection fraction Mild to moderate aortic valve stenosis Volume overload Sepsis Pneumonia Cellulitis Acute on chronic kidney disease -CT chest more consistent with pulmonary edema and pleural effusions, less likely infectious process. Diuretics have been increased, continue diuretics as per our nephrology colleagues. Antibiotics as per infectious disease. Blood pressure trend labile, if remains elevated, consider increasing dosing regimen. If chest x-ray does not improve with diuretics, consider thoracentesis. Consultation Date/Type/Reason Admit Date/Time Aug 24, 2017 at 19:05 Initial Consult Date 08/31/17 Type of Consultation: cv Referring Provider: GIA DUMONT 24 HR Interval Summary Free Text/Dictation Patient seen and examined, denies shortness of breath Exam/Review of Systems Vital Signs Vitals Vital Signs Date Time Temp Pulse Resp B/P Pulse Ox O2 Delivery O2 Flow Rate FiO2 09/13/17 14:13 98.6 82 18 145/65 95 09/13/17 13:53 2.0 09/13/17 13:49 Nasal Cannula 28 Intake and Output 09/12/17 09/12/17 09/13/17 15:00 23:00 07:00 Intake Total 50 ml 850 ml 120 ml Output Total 2000 ml 2000 ml Balance 50 ml -1150 ml -1880 ml Exam No apparent distress Constitutional: alert, obese, oriented Head: normocephalic Respiratory: other (Coarse breath sounds bilaterally, decreased at the bases) Cardiovascular: other (S1-S2 heard), regular rate and rhythm Gastrointestinal: bowel sounds, non-tender, soft Extremities: edema Results Result Diagram: 09/13/17 0550 09/13/17 0841 Results 24 hrs Laboratory Tests Test 09/12/17 17:08 09/12/17 22:46 09/13/17 02:12 09/13/17 05:50 Bedside Glucose 196 245 H 186 White Blood Count 16.4 H Red Blood Count 2.73 L Hemoglobin 8.2 L Hematocrit 25.7 L Mean Corpuscular Volume 94.1 Mean Corpuscular Hemoglobin 30.0 Mean Corpuscular Hemoglobin Concent 31.9 L Red Cell Distribution Width 17.7 H Platelet Count 534 H Mean Platelet Volume 10.0 Neutrophils % Segmented Neutrophils % (Manual) 72 Band Neutrophils % (Manual) 3 Lymphocytes % Lymphocytes % (Manual) 14 L Monocytes % Monocytes % (Manual) 3 Eosinophils % Eosinophils % (Manual) 1 Basophils % Metamyelocytes % (manual) 4 H Myelocytes % (Manual) 3 H Nucleated Red Blood Cells % 1.5 H Neutrophils # Neutrophils # (Manual) 11.9 H Band Neutrophils # 0.4 Absolute Lymphocytes (Manual) 2.2 Lymphocytes # Monocytes # Absolute Monocytes (Manual) 0.4 Eosinophils # Basophils # Metamyelocytes # 0.6 H Myelocytes # 0.4 H Nucleated Red Blood Cells # Platelet Estimate NORMAL Giant Platelets 2 H Polychromasia 1+ Poikilocytosis 1+ Anisocytosis 1+ Microcytosis 1+ Test 09/13/17 08:11 09/13/17 08:41 09/13/17 11:46 Bedside Glucose 117 106 Sodium Level 135 Potassium Level 4.1 Chloride Level 98 Carbon Dioxide Level 30 Anion Gap 11 Blood Urea Nitrogen 48 H Creatinine 2.43 H Glucose Level 103 Calcium Level 8.3 L Phosphorus Level 3.6 Magnesium Level 2.1 Medications Medications Current Medications Ondansetron HCl (Zofran Inj) 4 mg Q6H PRN IV NAUSEA AND/OR VOMITING Last administered on 09/04/17 13:47; Admin Dose 4 MG; Start 08/25/17 at 08:00 Morphine Sulfate (morphine) 2 mg Q4H PRN IV PAIN Last administered on 09/01/17 20:06; Admin Dose 2 MG; Start 08/25/17 at 08:00 Loratadine (Claritin) 10 mg DAILY PO Last administered on 09/13/17 08:14; Admin Dose 10 MG; Start 08/25/17 at 09:00 Losartan Potassium (Cozaar) 50 mg DAILY PO Last administered on 09/13/17 08: 13; Admin Dose 50 MG; Start 08/25/17 at 09:00 Miscellaneous Information 1 ea NOTE XX ; Start 08/25/17 at 14:00 Glucose (Glutose) 15 gm Q15M PRN PO DECREASED GLUCOSE; Start 08/25/17 at 14:00 Glucose (Glutose) 22.5 gm Q15M PRN PO DECREASED GLUCOSE; Start 08/25/17 at 14: 00 Dextrose (D50w Syringe) 25 ml Q15M PRN IV DECREASED GLUCOSE Last administered on 09/05/17 12:07; Admin Dose 25 ML; Start 08/25/17 at 14:00 Dextrose (D50w Syringe) 50 ml Q15M PRN IV DECREASED GLUCOSE Last administered on 09/03/17 20:53; Admin Dose 50 ML; Start 08/25/17 at 14:00 Glucagon (Glucagen) 1 mg Q15M PRN IM DECREASED GLUCOSE; Start 08/25/17 at 14: 00 Glucose (Glutose) 15 gm Q15M PRN BUCCAL DECREASED GLUCOSE; Start 08/25/17 at 14:00 Acetaminophen (Tylenol Tab) 650 mg Q4H PRN PO PAIN AND OR ELEVATED TEMP Last administered on 08/26/17 17:06; Admin Dose 650 MG; Start 08/25/17 at 20:30 Miscellaneous Medication (Bax Susp) 10 ml TID PO Last administered on 12:13; Admin Dose 10 ML; Start 08/29/17 at 13:00 Morphine Sulfate (morphine) 1 mg Q4H PRN IV LESS THAN 5/10 PAIN Last administered on 09/01/17 13:10; Admin Dose 1 MG; Start 08/30/17 at 20:00 Hydralazine HCl (Apresoline) 10 mg Q6H PRN IV ELEVATED SYSTOLIC BP Last administered on 09/13/17 06:46; Admin Dose 10 MG; Start 09/01/17 at 21:30 Silver Sulfadiazine (Thermazene 1% 400 Gm) 1 applic BID TOP Last administered on 09/13/17 08:16; Admin Dose 1 APPLIC; Start 09/04/17 at 14:00 Hydralazine HCl 10 mg 10 mg Q4H PRN IV ELEVATED BLOOD PRESSURE; Start at 01:00 Meropenem/Sodium Chloride (Merrem 500mg/50 ml(Pmx)) 50 ml @ 100 mls/hr Q12 IVPB Last administered on 09/13/17 08:15; Admin Dose 100 MLS/HR; Start 09/05 at 23:00 Heparin Sodium (Porcine) (Heparin (5000 Units/0.5 ml)) 5,000 unit Q8 SC Last administered on 09/13/17 14:00; Admin Dose 5,000 UNIT; Start 10/23/17 at 22: 00 Epoetin Kashif (Epogen (Esrd)) 10,000 units TuThSa@17 SC Last administered on 17:13; Admin Dose 10,000 UNITS; Start 09/07/17 at 17:00 Amlodipine Besylate (Norvasc) 10 mg DAILY PO Last administered on 09/13/17 08 :14; Admin Dose 10 MG; Start 09/08/17 at 09:00 Hydralazine HCl 25 mg 25 mg TID PO Last administered on 09/13/17 12:14; Admin Dose 25 MG; Start 09/08/17 at 13:00 Caspofungin/ Sodium Chloride (Cancidas/NS) 250 ml @ 250 mls/hr Q24H IVPB Last administered on 09/12/17 14:50; Admin Dose 250 MLS/HR; Start 09/10/17 at 15: 30 Potassium Chloride (Klor-Con 20) 20 meq DAILY PO Last administered on 08:14; Admin Dose 20 MEQ; Start 09/10/17 at 09:00 Bisoprolol Fumarate (Zebeta) 15 mg DAILY PO Last administered on 09/13/17 08: 14; Admin Dose 15 MG; Start 09/11/17 at 09:00 Insulin Glargine 13 unit 13 unit QHS SC Last administered on 09/12/17 22:53; Admin Dose 13 UNIT; Start 09/11/17 at 21:00 Vancomycin HCl (Vancocin) 250 ml @ 125 mls/hr Q72H IVPB ; Start 09/14/17 at 22 :00 Furosemide (Lasix) 40 mg ,,18 IV Last administered on 09/13/17 12:14; Admin Dose 40 MG; Start 09/12/17 at 09:00 Tj Marie DO Sep 13, 2017 15:26
[2017-09-13] MEDS: CASPOFUNGIN 50 MG in SOD CHLORIDE 0.9% 250 ML IVPB SCH (15:37)
--- NOTE | 2017-09-13 18:32 | CONS ---
Date/Time of Note Date/Time of Note DATE: 09/13/17 TIME: 18:29 Assessment/Plan Assessment/Plan Chief Complaint/Hosp Course 1. acute on-chronic kidney disease could be due to underlying sepsis/meds 2 Underlying acute tubular necrosis, BETTER 3 Likely underlying diabetic nephropathy, underlying hypertensive nephrosclerosis 4 pancytopenia could be due to sepsis, as well as drug-induced mthx/sulpha 5. Hyponatremia. resolved 6. METABOLIC ACIDOSIS BETTER 7 Nephrotic range proteinuria 8 BLE atherosclerosis 9 PNEUMONIA AND PUL EDEMA BETTER PLAN DIURETIC [facility] LABS Problems: Consultation Date/Type/Reason Admit Date/Time Aug 24, 2017 at 19:05 Initial Consult Date RENAL F/U Referring Provider: GIA DUMONT Exam/Review of Systems Vital Signs Vitals Vital Signs Date Time Temp Pulse Resp B/P Pulse Ox O2 Delivery O2 Flow Rate FiO2 09/13/17 16:41 78 20 94 Nasal Cannula 2.0 28 09/13/17 14:13 98.6 145/65 Intake and Output 09/12/17 09/12/17 09/13/17 15:00 23:00 07:00 Intake Total 50 ml 850 ml 120 ml Output Total 2000 ml 2000 ml Balance 50 ml -1150 ml -1880 ml Exam Constitutional: other (SOB BETTER) Neck: supple Respiratory: clear to auscultation Cardiovascular: regular rate and rhythm Gastrointestinal: bowel sounds (+), soft, No tender Extremities: edema (LESS) Results Result Diagram: 09/13/17 0550 09/13/17 0841 Results 24 hrs Laboratory Tests Test 09/12/17 22:46 09/13/17 02:12 09/13/17 05:50 09/13/17 08:11 Bedside Glucose 245 H 186 117 White Blood Count 16.4 H Red Blood Count 2.73 L Hemoglobin 8.2 L Hematocrit 25.7 L Mean Corpuscular Volume 94.1 Mean Corpuscular Hemoglobin 30.0 Mean Corpuscular Hemoglobin Concent 31.9 L Red Cell Distribution Width 17.7 H Platelet Count 534 H Mean Platelet Volume 10.0 Neutrophils % Segmented Neutrophils % (Manual) 72 Band Neutrophils % (Manual) 3 Lymphocytes % Lymphocytes % (Manual) 14 L Monocytes % Monocytes % (Manual) 3 Eosinophils % Eosinophils % (Manual) 1 Basophils % Metamyelocytes % (manual) 4 H Myelocytes % (Manual) 3 H Nucleated Red Blood Cells % 1.5 H Neutrophils # Neutrophils # (Manual) 11.9 H Band Neutrophils # 0.4 Absolute Lymphocytes (Manual) 2.2 Lymphocytes # Monocytes # Absolute Monocytes (Manual) 0.4 Eosinophils # Basophils # Metamyelocytes # 0.6 H Myelocytes # 0.4 H Nucleated Red Blood Cells # Platelet Estimate NORMAL Giant Platelets 2 H Polychromasia 1+ Poikilocytosis 1+ Anisocytosis 1+ Microcytosis 1+ Test 09/13/17 08:41 09/13/17 11:46 09/13/17 17:11 Sodium Level 135 Potassium Level 4.1 Chloride Level 98 Carbon Dioxide Level 30 Anion Gap 11 Blood Urea Nitrogen 48 H Creatinine 2.43 H Glucose Level 103 Calcium Level 8.3 L Phosphorus Level 3.6 Magnesium Level 2.1 Bedside Glucose 106 172 Medications Medications Current Medications Ondansetron HCl (Zofran Inj) 4 mg Q6H PRN IV NAUSEA AND/OR VOMITING Last administered on 09/04/17 13:47; Admin Dose 4 MG; Start 08/25/17 at 08:00 Morphine Sulfate (morphine) 2 mg Q4H PRN IV PAIN Last administered on 09/01/17 20:06; Admin Dose 2 MG; Start 08/25/17 at 08:00 Loratadine (Claritin) 10 mg DAILY PO Last administered on 09/13/17 08:14; Admin Dose 10 MG; Start 08/25/17 at 09:00 Losartan Potassium (Cozaar) 50 mg DAILY PO Last administered on 09/13/17 08: 13; Admin Dose 50 MG; Start 08/25/17 at 09:00 Miscellaneous Information 1 ea NOTE XX ; Start 08/25/17 at 14:00 Glucose (Glutose) 15 gm Q15M PRN PO DECREASED GLUCOSE; Start 08/25/17 at 14:00 Glucose (Glutose) 22.5 gm Q15M PRN PO DECREASED GLUCOSE; Start 08/25/17 at 14: 00 Dextrose (D50w Syringe) 25 ml Q15M PRN IV DECREASED GLUCOSE Last administered on 09/05/17 12:07; Admin Dose 25 ML; Start 08/25/17 at 14:00 Dextrose (D50w Syringe) 50 ml Q15M PRN IV DECREASED GLUCOSE Last administered on 09/03/17 20:53; Admin Dose 50 ML; Start 08/25/17 at 14:00 Glucagon (Glucagen) 1 mg Q15M PRN IM DECREASED GLUCOSE; Start 08/25/17 at 14: 00 Glucose (Glutose) 15 gm Q15M PRN BUCCAL DECREASED GLUCOSE; Start 08/25/17 at 14:00 Acetaminophen (Tylenol Tab) 650 mg Q4H PRN PO PAIN AND OR ELEVATED TEMP Last administered on 08/26/17 17:06; Admin Dose 650 MG; Start 08/25/17 at 20:30 Miscellaneous Medication (Bax Susp) 10 ml TID PO Last administered on 12:13; Admin Dose 10 ML; Start 08/29/17 at 13:00 Morphine Sulfate (morphine) 1 mg Q4H PRN IV LESS THAN 5/10 PAIN Last administered on 09/01/17 13:10; Admin Dose 1 MG; Start 08/30/17 at 20:00 Hydralazine HCl (Apresoline) 10 mg Q6H PRN IV ELEVATED SYSTOLIC BP Last administered on 09/13/17 06:46; Admin Dose 10 MG; Start 09/01/17 at 21:30 Silver Sulfadiazine (Thermazene 1% 400 Gm) 1 applic BID TOP Last administered on 09/13/17 08:16; Admin Dose 1 APPLIC; Start 09/04/17 at 14:00 Hydralazine HCl 10 mg 10 mg Q4H PRN IV ELEVATED BLOOD PRESSURE; Start at 01:00 Meropenem/Sodium Chloride (Merrem 500mg/50 ml(Pmx)) 50 ml @ 100 mls/hr Q12 IVPB Last administered on 09/13/17 08:15; Admin Dose 100 MLS/HR; Start 09/05 at 23:00 Heparin Sodium (Porcine) (Heparin (5000 Units/0.5 ml)) 5,000 unit Q8 SC Last administered on 09/13/17 14:00; Admin Dose 5,000 UNIT; Start 09/06/17 at 22: 00 Epoetin Kashif (Epogen (Esrd)) 10,000 units TuThSa@17 SC Last administered on 17:13; Admin Dose 10,000 UNITS; Start 09/07/17 at 17:00 Amlodipine Besylate (Norvasc) 10 mg DAILY PO Last administered on 09/13/17 08 :14; Admin Dose 10 MG; Start 09/08/17 at 09:00 Hydralazine HCl 25 mg 25 mg TID PO Last administered on 09/13/17 12:14; Admin Dose 25 MG; Start 09/08/17 at 13:00 Caspofungin/ Sodium Chloride (Cancidas/NS) 250 ml @ 250 mls/hr Q24H IVPB Last administered on 09/13/17 15:37; Admin Dose 250 MLS/HR; Start 09/10/17 at 15: 30 Potassium Chloride (Klor-Con 20) 20 meq DAILY PO Last administered on 08:14; Admin Dose 20 MEQ; Start 09/10/17 at 09:00 Bisoprolol Fumarate (Zebeta) 15 mg DAILY PO Last administered on 09/13/17 08: 14; Admin Dose 15 MG; Start 09/11/17 at 09:00 Insulin Glargine 13 unit 13 unit QHS SC Last administered on 09/12/17 22:53; Admin Dose 13 UNIT; Start 09/11/17 at 21:00 Vancomycin HCl (Vancocin) 250 ml @ 125 mls/hr Q72H IVPB ; Start 09/14/17 at 22 :00 Furosemide (Lasix) 40 mg ,,18 IV Last administered on 09/13/17 17:12; Admin Dose 40 MG; Start 09/12/17 at 09:00 JENNA PATTEN MD Sep 13, 2017 18:32
[2017-09-13] MEDS: INSULIN GLARGINE [LANtus] 3 ML PEN SC SCH (20:31)
[2017-09-14] VITALS (12 sets, daily range): BP systolic 128–173; BP diastolic 65–81; PULSE 84–97; RESP 18–21
[2017-09-14] MEDS: ALBUTEROL/IPRATROPIUM (NEB) 3 ML AMP HHN SCH ×6 (01:00→19:42)
--- NOTE | 2017-09-14 03:58 | PN ---
Date/Time of Note Date/Time of Note DATE: 09/12/17 TIME: 19:57 Assessment/Plan Lines/Catheters IV Catheter Type (from [facility]): Saline Lock Reina in Place (from [facility]): Yes Assessment/Plan Chief Complaint/Hosp Course 1. Left lower extremity cellulitis and edema with history of diabetes;CT lower extremity without abscess -continue supportive measures -elevate above heart level 2. Leukocytosis, without fevers, with history of leukopenia: on prednisone. Improving -abx per ID 3. Diabetes -Nutrition medication optimization -Encourage weight loss 4. Hypertension -Nutrition medication optimization -Encourage weight loss 5. Chronic kidney disease: cr stable -Judicious fluid management -Avoid nephrotoxic agents 6. Bilateral ground glass changes on CT -s/p abx -pulm toilette 7. Hypoalbuminemia with hypocalcemia -Nutritional optimization 8. Anemia: no acute bleed noted -monitor -transfuse as needed 9. Electrolyte imbalance -optimize lytes Thank you, Late entry 09/12 Problems: Subjective 24 Hr Interval Summary No leg pain. Improved mobility. Swelling much improved. Sob with exertion, with readily audible wheezing. Leukocytosis. No fevers, chills, cp, palpitations, walsh , dizziness, n/v/d/dysuria. Exam/Review of Systems Vital Signs Vitals Vital Signs Date Time Temp Pulse Resp B/P Pulse Ox O2 Delivery O2 Flow Rate FiO2 09/14/17 03:22 Nasal Cannula 3.0 09/14/17 02:05 84 157/76 09/14/17 02:00 99.4 20 94 09/13/17 16:41 28 Intake and Output 09/13/17 09/13/17 09/14/17 15:00 23:00 07:00 Intake Total 1420 ml Output Total 1900 ml Balance -480 ml Exam Free Text/Dictation Constitutional: obese, other (Awake), No distress Psych: nl mood/affect, No anxiety Head: atraumatic, normocephalic Eyes: EOMI, PERRL, nl conjunctiva, No icteric ENMT: mucosa pink and dry, nl external ears & nose, nl lips & teeth Neck: non-tender, supple, No jvd Respiratory: sob w exertion, wheezing. No congested cough, No labored breathing, No wheezing Cardiovascular: edema (Left lower extremity- improving), regular rate and rhythm Gastrointestinal: non-tender, soft, No rebound or guarding Musculoskeletal: joint tenderness (Left ankle), No nl extremities to inspection Extremities: edema, normal pulses, pitting Left pedal edema +2 (much improved) , tenderness, No calf tenderness Neurological: nl mental status, nl strength Skin: rash or lesions (Left lower extremity-discoloration improved, flaky skin) , No diaphoresis, No nl turgor Lymph: nl lymph nodes, nontender Results Result Diagram: 09/13/17 0550 09/13/17 0841 BOB FUNEZ MD Sep 14, 2017 03:58
--- NOTE | 2017-09-14 04:01 | PN ---
Date/Time of Note Date/Time of Note DATE: 09/13/17 TIME: 11:58 Assessment/Plan Lines/Catheters IV Catheter Type (from [facility]): Saline Lock Reina in Place (from [facility]): Yes Assessment/Plan Chief Complaint/Hosp Course 1. Left lower extremity cellulitis and edema with history of diabetes;CT lower extremity without abscess -continue supportive measures -elevate above heart level 2. Leukocytosis, without fevers, with history of leukopenia: on prednisone. Improving -abx per ID 3. Diabetes -Nutrition medication optimization -Encourage weight loss 4. Hypertension -Nutrition medication optimization -Encourage weight loss 5. Chronic kidney disease -Judicious fluid management -Avoid nephrotoxic agents 6. Bilateral ground glass changes on CT -s/p abx -pulm toilette 7. Hypoalbuminemia with hypocalcemia -Nutritional optimization 8. Anemia: no acute bleed noted -monitor -transfuse as needed 9. Electrolyte imbalance -optimize lytes Thank you, Late entry 09/13 Problems: Subjective 24 Hr Interval Summary No leg pain. Improved mobility. Swelling improved. Sob improved. Leukocytosis improving. No fevers, chills, cp, palpitations, walsh, dizziness, n/v/d/dysuria. Exam/Review of Systems Vital Signs Vitals Vital Signs Date Time Temp Pulse Resp B/P Pulse Ox O2 Delivery O2 Flow Rate FiO2 09/14/17 03:22 Nasal Cannula 3.0 09/14/17 02:05 84 157/76 09/14/17 02:00 99.4 20 94 09/13/17 16:41 28 Intake and Output 09/13/17 09/13/17 09/14/17 15:00 23:00 07:00 Intake Total 1420 ml Output Total 1900 ml Balance -480 ml Exam Free Text/Dictation Constitutional: obese, other (Awake), No distress Psych: nl mood/affect, No anxiety Head: atraumatic, normocephalic Eyes: EOMI, PERRL, nl conjunctiva, No icteric ENMT: mucosa pink and dry, nl external ears & nose, nl lips & teeth Neck: non-tender, supple, No jvd Respiratory: sob w exertion improved, wheezing improved. No congested cough Cardiovascular: edema (Left lower extremity- improving), regular rate and rhythm Gastrointestinal: non-tender, soft, No rebound or guarding Musculoskeletal: joint tenderness (Left ankle), No nl extremities to inspection Extremities: edema, normal pulses, tenderness, No calf tenderness Neurological: nl mental status, nl strength Skin: rash or lesions (Left lower extremity-discoloration improved, flaky skin) , No diaphoresis, No nl turgor Lymph: nl lymph nodes, nontender Results Result Diagram: 09/13/17 0550 09/13/17 0841 BOB FUNEZ MD Sep 14, 2017 04:01
[2017-09-14] MEDS: HEPARIN 5,000 UNIT/0.5 ML VIAL SC SCH ×3 (05:25→22:48)
--- NOTE | 2017-09-14 06:37 | PN ---
DATE: 09/13/2018 SUBJECTIVE: Patient is alert, eating lunch, looks comfortable, denies pain, no fevers. LABORATORY DATA: WBC today 16.4, platelets 534. BUN 48, creatinine 2.43. ANTIMICROBIALS: The patient remains on: 1. Cancidas. 2. Vancomycin. 3. Meropenem. PHYSICAL EXAMINATION: GENERAL: This is an obese, well-developed, elderly woman who is awake, in no distress. HEENT: Head atraumatic, normocephalic. Sclerae anicteric. Buccal mucosa dry. NECK: Supple. CHEST: Rise symmetrical. Breath sounds diminished to bases. HEART: S1, S2. ABDOMEN: Soft. Bowel tones present. EXTREMITIES: With resolving erythema and edema of her left lower extremity. ASSESSMENT: 1. Resolving sepsis. 2. Status post acute hypoxemic respiratory failure secondary to fluid overload and bilateral pneumo negin. 3. Left lower extremity resolving cellulitis. 4. Status post neutropenia and pancytopenia. 5. Acute on possible chronic kidney disease. PLAN: The patient remains stable and overall improving. She is being seen by multiple consultants. She remains on Lasix 3 times daily. We will continue her on current antibiotics. Monitor renal f unction closely. Dictated By: CODY VASQUEZ TERRAZZO HELPER for [facility]/NTS Conf#: [id number] DID#: [id number]
--- NOTE | 2017-09-14 06:37 | PN ---
DATE: 09/13/2018 SUBJECTIVE: Patient is alert, eating lunch, looks comfortable, denies pain, no fevers. LABORATORY DATA: WBC today 16.4, platelets 534. BUN 48, creatinine 2.43. ANTIMICROBIALS: The patient remains on: 1. Cancidas. 2. Vancomycin. 3. Meropenem. PHYSICAL EXAMINATION: GENERAL: This is an obese, well-developed, elderly woman who is awake, in no distress. HEENT: Head atraumatic, normocephalic. Sclerae anicteric. Buccal mucosa dry. NECK: Supple. CHEST: Rise symmetrical. Breath sounds diminished to bases. HEART: S1, S2. ABDOMEN: Soft. Bowel tones present. EXTREMITIES: With resolving erythema and edema of her left lower extremity. ASSESSMENT: 1. Resolving sepsis. 2. Status post acute hypoxemic respiratory failure secondary to fluid overload and bilateral pneumo neign. 3. Left lower extremity resolving cellulitis. 4. Status post neutropenia and pancytopenia. 5. Acute on possible chronic kidney disease. PLAN: The patient remains stable and overall improving. She is being seen by multiple consultants. She remains on Lasix 3 times daily. We will continue her on current antibiotics. Monitor renal f unction closely. Dictated By: CODY VASQUEZ BUFFING MACHINE OPERATOR for [facility]/NTS Conf#: [id number] DID#: [id number]
--- NOTE | 2017-09-14 06:37 | PN ---
DATE: 09/13/2018 SUBJECTIVE: Patient is alert, eating lunch, looks comfortable, denies pain, no fevers. LABORATORY DATA: WBC today 16.4, platelets 534. BUN 48, creatinine 2.43. ANTIMICROBIALS: The patient remains on: 1. Cancidas. 2. Vancomycin. 3. Meropenem. PHYSICAL EXAMINATION: GENERAL: This is an obese, well-developed, elderly woman who is awake, in no distress. HEENT: Head atraumatic, normocephalic. Sclerae anicteric. Buccal mucosa dry. NECK: Supple. CHEST: Rise symmetrical. Breath sounds diminished to bases. HEART: S1, S2. ABDOMEN: Soft. Bowel tones present. EXTREMITIES: With resolving erythema and edema of her left lower extremity. ASSESSMENT: 1. Resolving sepsis. 2. Status post acute hypoxemic respiratory failure secondary to fluid overload and bilateral pneumo negin. 3. Left lower extremity resolving cellulitis. 4. Status post neutropenia and pancytopenia. 5. Acute on possible chronic kidney disease. PLAN: The patient remains stable and overall improving. She is being seen by multiple consultants. She remains on Lasix 3 times daily. We will continue her on current antibiotics. Monitor renal f unction closely. Dictated By: CODY VASQUEZ CLINICAL ENGINEERING MANAGER for [facility]/NTS Conf#: [id number] DID#: [id number]
[2017-09-14] MEDS: ACCU-CHEK XX SCH ×4 (08:00→21:16)
[2017-09-14] MEDS: BISOPROLOL 5 MG TAB PO SCH (08:12)
[2017-09-14] MEDS: MEROPENEM 500MG/50 ML (PMX) 50 ML IVPB SCH ×2 (08:12→20:46)
[2017-09-14] MEDS: DIPHENHYD/MYLANTA/LIDO (PO SYG) PO SCH ×3 (08:13→20:45)
[2017-09-14] MEDS: FUROSEMIDE 40 MG INJ IV SCH ×3 (08:13→17:02)
[2017-09-14] MEDS: POTASSIUM CHLORIDE (SR) 20 MEQ TAB PO SCH (08:14)
[2017-09-14] MEDS: LORATADINE 10 MG TAB PO SCH (08:14)
[2017-09-14] MEDS: SILVER SULFADIAZINE 1% 400 GM CR TOP SCH ×2 (08:14→21:16)
[2017-09-14] MEDS: AMLODIPINE 10 MG TAB PO SCH (08:14)
[2017-09-14] MEDS: LOSARTAN 50 MG TAB PO SCH (08:14)
[2017-09-14] MEDS: INSULIN ASPART [NOVOLOG] 3 ML PEN SC SCH ×4 (08:15→21:15)
--- NOTE | 2017-09-14 09:03 | PN ---
DATE: 09/14/2017 SUBJECTIVE: Patient is lying quietly in bed. She has no complaints of discomfort at this time. No leg pain, no shortness of breath. OBJECTIVE: GENERAL: The patient is a well-developed, well-nourished female in no acute distress. VITAL SIGNS: Temperature 97.7, pulse 86 per minute and regular, respirations 18, blood pressure 128 /65, pulse oximetry 98% on 2 liters of oxygen by nasal cannula. SKIN: No ecchymosis, no petechiae or rashes. There is scaling and flaking of skin in the left pret ibial and pedal area. HEENT: Normocephalic. No evidence of trauma. Pupils equal, round, react to light and accommodatio n. Sclerae nonicteric. Oral mucosa is moist without lesions. Tongue is well papillated. No gingi shabbir hyperplasia, no hypertrophy of Waldeyer's ring, no mucosal telangiectasias. NECK: Supple, no jugular venous distention or thyroid enlargement. CHEST: Decreased breath sounds in both bases and bilateral crackling rales, which do not clear with cough. HEART: Regular sinus rhythm, no S3, S4 or murmurs. ABDOMEN: Obese but soft. There are no masses or ascites. EXTREMITIES: No clubbing or cyanosis. The edema of the lower extremity has completely resolved. T here is a dryness and flaking of the skin is noted. No palpable cords or Kirstie's sign. NEUROLOGIC: Appears normal. LABORATORY DATA: White count yesterday was 16,400 with an absolute neutrophil count of 11,900 with only 400 bands. Hemoglobin 8.2, hematocrit 25.7 and platelet count 534,000. This morning, sodium 1 37, potassium 3.5, creatinine is 2.35, BUN 37. ASSESSMENT: 1. Pancytopenia, likely secondary to methotrexate, resolved. 2. Cellulitis, left lower extremity, resolved. DISCUSSION: The patient's bone marrow suppression related to methotrexate has resolved. The patien t is still anemic, although, this, I feel, is on the basis of the patient's underlying renal dysfunc tion as well as the original marrow toxicity due to methotrexate. The patient is now receiving erythropoietin, which may be of some benefit. The patient has had leukocytosis which is gradually improving. This has been attributed to infectio n, although I feel the leukocytosis was actually a response to the filgrastim that the patient had b een receiving. At this time, we have no further hematologic recommendations other than the continua tion of erythropoietin. Hopefully, the patient's red cell production will improve as her renal func tion continues to improve. Dictated By: NOAH ROSEN MD SR/NTS Conf#: [id number] DID#: [id number]
[2017-09-14] MEDS ORDERED: POTASSIUM CHLORIDE (SR) 20 MEQ TAB PO STA (10:33)
--- NOTE | 2017-09-14 14:01 | CONS ---
Date/Time of Note Date/Time of Note DATE: 09/14/17 TIME: 13:58 Consult Date/Type/Reason Admit Date/Time Aug 24, 2017 at 19:05 Initial Consult Date 08/29/17 Type of Consultation: ID Ordering Provider: GIA DUMONT Objective Vital Signs Date Time Temp Pulse Resp B/P Pulse Ox O2 Delivery O2 Flow Rate FiO2 09/14/17 13:03 2.0 09/14/17 12:55 81 20 98 Nasal Cannula 28 09/14/17 07:20 97.7 128/65 Intake and Output 09/13/17 09/13/17 09/14/17 14:59 22:59 06:59 Intake Total 1470 ml 360 ml Output Total 1900 ml 1900 ml Balance -430 ml -1540 ml Results/Medications Result Diagram: 09/13/17 0550 09/14/17 0556 Results 24 hrs Laboratory Tests Test 09/13/17 17:11 09/13/17 20:26 09/14/17 02:03 09/14/17 05:56 Bedside Glucose 172 202 101 Sodium Level 137 Potassium Level 3.5 Chloride Level 97 Carbon Dioxide Level 31 Anion Gap 13 Blood Urea Nitrogen 47 H Creatinine 2.35 H Glucose Level 72 Calcium Level 8.5 Test 09/14/17 08:33 09/14/17 12:10 Bedside Glucose 74 161 Medications Current Medications Ondansetron HCl (Zofran Inj) 4 mg Q6H PRN IV NAUSEA AND/OR VOMITING Last administered on 09/04/17 13:47; Admin Dose 4 MG; Start 08/25/17 at 08:00 Morphine Sulfate (morphine) 2 mg Q4H PRN IV PAIN Last administered on 09/01/17 20:06; Admin Dose 2 MG; Start 08/25/17 at 08:00 Loratadine (Claritin) 10 mg DAILY PO Last administered on 09/14/17 08:14; Admin Dose 10 MG; Start 08/25/17 at 09:00 Losartan Potassium (Cozaar) 50 mg DAILY PO Last administered on 09/14/17 08: 14; Admin Dose 50 MG; Start 08/25/17 at 09:00 Miscellaneous Information 1 ea NOTE XX ; Start 08/25/17 at 14:00 Glucose (Glutose) 15 gm Q15M PRN PO DECREASED GLUCOSE; Start 08/25/17 at 14:00 Glucose (Glutose) 22.5 gm Q15M PRN PO DECREASED GLUCOSE; Start 08/25/17 at 14: 00 Dextrose (D50w Syringe) 25 ml Q15M PRN IV DECREASED GLUCOSE Last administered on 09/05/17 12:07; Admin Dose 25 ML; Start 08/25/17 at 14:00 Dextrose (D50w Syringe) 50 ml Q15M PRN IV DECREASED GLUCOSE Last administered on 09/03/17 20:53; Admin Dose 50 ML; Start 08/25/17 at 14:00 Glucagon (Glucagen) 1 mg Q15M PRN IM DECREASED GLUCOSE; Start 08/25/17 at 14: 00 Glucose (Glutose) 15 gm Q15M PRN BUCCAL DECREASED GLUCOSE; Start 08/25/17 at 14:00 Acetaminophen (Tylenol Tab) 650 mg Q4H PRN PO PAIN AND OR ELEVATED TEMP Last administered on 08/26/17 17:06; Admin Dose 650 MG; Start 08/25/17 at 20:30 Miscellaneous Medication (Bax Susp) 10 ml TID PO Last administered on 12:08; Admin Dose 10 ML; Start 08/29/17 at 13:00 Morphine Sulfate (morphine) 1 mg Q4H PRN IV LESS THAN 5/10 PAIN Last administered on 09/01/17 13:10; Admin Dose 1 MG; Start 08/30/17 at 20:00 Hydralazine HCl (Apresoline) 10 mg Q6H PRN IV ELEVATED SYSTOLIC BP Last administered on 09/13/17 06:46; Admin Dose 10 MG; Start 09/01/17 at 21:30 Silver Sulfadiazine (Thermazene 1% 400 Gm) 1 applic BID TOP Last administered on 09/14/17 08:14; Admin Dose 1 APPLIC; Start 09/04/17 at 14:00 Hydralazine HCl 10 mg 10 mg Q4H PRN IV ELEVATED BLOOD PRESSURE; Start at 01:00 Meropenem/Sodium Chloride (Merrem 500mg/50 ml(Pmx)) 50 ml @ 100 mls/hr Q12 IVPB Last administered on 09/14/17 08:12; Admin Dose 100 MLS/HR; Start 09/05 at 23:00 Heparin Sodium (Porcine) (Heparin (5000 Units/0.5 ml)) 5,000 unit Q8 SC Last administered on 09/14/17 05:25; Admin Dose 5,000 UNIT; Start 09/06/17 at 22: 00 Epoetin Kashif (Epogen (Esrd)) 10,000 units TuThSa@17 SC Last administered on 17:13; Admin Dose 10,000 UNITS; Start 09/07/17 at 17:00 Amlodipine Besylate (Norvasc) 10 mg DAILY PO Last administered on 09/14/17 08 :14; Admin Dose 10 MG; Start 09/08/17 at 09:00 Hydralazine HCl 25 mg 25 mg TID PO Last administered on 09/14/17 12:09; Admin Dose 25 MG; Start 09/08/17 at 13:00 Caspofungin/ Sodium Chloride (Cancidas/NS) 250 ml @ 250 mls/hr Q24H IVPB Last administered on 09/13/17 15:37; Admin Dose 250 MLS/HR; Start 09/10/17 at 15: 30 Potassium Chloride (Klor-Con 20) 20 meq DAILY PO Last administered on 08:14; Admin Dose 20 MEQ; Start 09/10/17 at 09:00 Bisoprolol Fumarate (Zebeta) 15 mg DAILY PO Last administered on 09/14/17 08: 12; Admin Dose 15 MG; Start 09/11/17 at 09:00 Insulin Glargine 13 unit 13 unit QHS SC Last administered on 09/13/17 20:31; Admin Dose 13 UNIT; Start 09/11/17 at 21:00 Vancomycin HCl (Vancocin) 250 ml @ 125 mls/hr Q72H IVPB ; Start 09/14/17 at 22 :00 Furosemide (Lasix) 40 mg 09,13,18 IV Last administered on 09/14/17 12:09; Admin Dose 40 MG; Start 09/12/17 at 09:00 Assessment/Plan Chief Complaint/Hosp Course SUBJECTIVE: The patient is sleeping, looks comfortable on nc. No fevers. Vital signs stable. ANTIMICROBIALS: The patient remains on: 1. Cancidas. 2. Vancomycin. 3. Meropenem. PHYSICAL EXAMINATION: GENERAL: This is an obese, well-developed, elderly woman who is in no distress. HEENT: Head atraumatic, normocephalic. Sclerae anicteric. Buccal mucosa dry. NECK: Supple. CHEST: Rise symmetrical. Breath sounds diminished to bases. HEART: S1, S2. ABDOMEN: Soft. Bowel tones present. EXTREMITIES: With resolving erythema and edema of her left lower extremity. ASSESSMENT: 1. Resolving sepsis. 2. Status post acute hypoxemic respiratory failure secondary to fluid overload and bilateral pneumonia. 3. Left lower extremity resolving cellulitis. 4. Status post neutropenia and pancytopenia. 5. Acute on possible chronic kidney disease. PLAN: The patient remains stable, wbc slowly trending down, will dc abx in am and reculture prn, management per primary team and consultants. ISABEL staff Problems: CODY VASQUEZ NP Sep 14, 2017 14:00
--- NOTE | 2017-09-14 14:41 | PN ---
Date/Time of Note Date/Time of Note DATE: 09/14/17 TIME: 14:36 Assessment/Plan VTE Prophylaxis VTE Prophylaxis Intervention: contraindicated Lines/Catheters IV Catheter Type (from Nrs): Saline Lock Urinary Cath still in place: Yes Reason Cath still needed: skin wounds contaminated by urine Assessment/Plan Assessment/Plan 1. Acute respiratory distress secondary to Bilateral Pneumonia- improving - Patient found to have b/l PNA on initial chest xray - On antibiotics per ID and will d/c tomorrow due to completion of course and improvement in condition - Pulmonology consultation placed and appreciated recommendations - On Neb treatments - Completed course of steroids - Continue on Lasix 2. Pulmonary edema- improving - Cardiology on board and recommendations appreciated - On Lasix which has been effective - Repeat CXR shows improvement with small b/l effusions 3. Acute on chronic diastolic congestive heart failure - continue lasix - Cardiology on board and recommendations appreciated - ECHO results noted 4. Left lower extremity cellulitis- resolving - ID and Surgery on board. Recommendations appreciated - Antibiotic per ID - CT LE showed cellulitis and no evidence of osteomyelitis. Xray LE also performed and no osteomyelitis appreciated. -gen surg/vascular surg do not feel any acute intervention is needed 5. Mucositis 2/2 methotrexate use- improved - diphen/lido/mal oral solution ordered. Morphine if pain remain intolerable for PO intake - Tolerating soft mech diet 6. Pancytopenia- improved - now leukocytosis, possible due to filgrastim per heme/onc - Hematology on board and recommendations appreciated. - s/p multiple blood transfusions and plt transfusions. - Plts elevated and may be reactive 7. Leukocytosis- trending down - Continue to monitor. May be secondary to Neupogen - downtrending 8. Neutropenia- resolved - WBC downtrending now <30 and Neupogen no longer on board - Will continue to monitor - Heme on board and recommendations appreciated 9. BK vs BK on CKD - Nephrology on board and recommendations appreciated. - Cr still elevated, but improved since admission, likely chronic component - Monitor UOP - HIV negative, KASSY negative 10. Hypokalemia - K 3.5, resolved 11. Eosinophilia - normalized after d/c sulfasalazine and mtx 12. Vascular insufficiency - Vascular surgery on board and recommendations appreciated. No current vascular intervention as the patient has not developed any gangrene or ulcers - Will need to follow up as outpatient due to LE atherosclerosis 13. Disposition - Continue on diuresis - spoke with CM regarding SNF placement Subjective 24 Hr Interval Summary Free Text/Dictation Patient resting comfortably in no acute distress. No acute overnight events and no new complaints. Exam/Review of Systems Vital Signs Vitals Vital Signs Date Time Temp Pulse Resp B/P Pulse Ox O2 Delivery O2 Flow Rate FiO2 09/14/17 14:28 99.1 85 18 157/70 97 09/14/17 13:03 2.0 09/14/17 12:55 Nasal Cannula 28 Intake and Output 09/13/17 09/13/17 09/14/17 15:00 23:00 07:00 Intake Total 1470 ml 360 ml Output Total 1900 ml 1900 ml Balance -430 ml -1540 ml Exam General: Patient is resting comfortably and in NAD Head: Normocephalic atraumatic Eyes: EOMI, pupils reactive to light Neck: Supple, nontender, midline Respiratory: crackles bases bilaterally, no wheezing Cardiovascular: regular rate, no obvious murmurs Gastrointestinal: non-tender to palpation, bowel sounds heard. soft, nondistended Neurological: Moves all extremities spontaneously Skin: improvement in discoloration LLE, dryness of skin but less erythema. no tenderness Results Result Diagram: 09/13/17 0550 09/14/17 0556 Results 24 hrs Laboratory Tests Test 09/13/17 17:11 09/13/17 20:26 09/14/17 02:03 09/14/17 05:56 Bedside Glucose 172 202 101 Sodium Level 137 Potassium Level 3.5 Chloride Level 97 Carbon Dioxide Level 31 Anion Gap 13 Blood Urea Nitrogen 47 H Creatinine 2.35 H Glucose Level 72 Calcium Level 8.5 Test 09/14/17 08:33 09/14/17 12:10 Bedside Glucose 74 161 Medications Medications Current Medications Ondansetron HCl (Zofran Inj) 4 mg Q6H PRN IV NAUSEA AND/OR VOMITING Last administered on 09/04/17 13:47; Admin Dose 4 MG; Start 08/25/17 at 08:00 Morphine Sulfate (morphine) 2 mg Q4H PRN IV 5-10 PAIN Last administered on 09/01/17 20:06; Admin Dose 2 MG; Start 08/25/17 at 08:00 Loratadine (Claritin) 10 mg DAILY PO Last administered on 09/14/17 08:14; Admin Dose 10 MG; Start 08/25/17 at 09:00 Losartan Potassium (Cozaar) 50 mg DAILY PO Last administered on 09/14/17 08: 14; Admin Dose 50 MG; Start 08/25/17 at 09:00 Miscellaneous Information 1 ea NOTE XX ; Start 08/25/17 at 14:00 Glucose (Glutose) 15 gm Q15M PRN PO DECREASED GLUCOSE; Start 08/25/17 at 14:00 Glucose (Glutose) 22.5 gm Q15M PRN PO DECREASED GLUCOSE; Start 08/25/17 at 14: 00 Dextrose (D50w Syringe) 25 ml Q15M PRN IV DECREASED GLUCOSE Last administered on 09/05/17 12:07; Admin Dose 25 ML; Start 08/25/17 at 14:00 Dextrose (D50w Syringe) 50 ml Q15M PRN IV DECREASED GLUCOSE Last administered on 09/03/17 20:53; Admin Dose 50 ML; Start 08/25/17 at 14:00 Glucagon (Glucagen) 1 mg Q15M PRN IM DECREASED GLUCOSE; Start 08/25/17 at 14: 00 Glucose (Glutose) 15 gm Q15M PRN BUCCAL DECREASED GLUCOSE; Start 08/25/17 at 14:00 Acetaminophen (Tylenol Tab) 650 mg Q4H PRN PO PAIN AND OR ELEVATED TEMP Last administered on 08/26/17 17:06; Admin Dose 650 MG; Start 08/25/17 at 20:30 Miscellaneous Medication (Bax Susp) 10 ml TID PO Last administered on 12:08; Admin Dose 10 ML; Start 08/29/17 at 13:00 Morphine Sulfate (morphine) 1 mg Q4H PRN IV LESS THAN 5/10 PAIN Last administered on 09/01/17 13:10; Admin Dose 1 MG; Start 08/30/17 at 20:00 Hydralazine HCl (Apresoline) 10 mg Q6H PRN IV ELEVATED SYSTOLIC BP Last administered on 09/13/17 06:46; Admin Dose 10 MG; Start 09/01/17 at 21:30 Silver Sulfadiazine (Thermazene 1% 400 Gm) 1 applic BID TOP Last administered on 09/14/17 08:14; Admin Dose 1 APPLIC; Start 09/04/17 at 14:00 Hydralazine HCl 10 mg 10 mg Q4H PRN IV ELEVATED BLOOD PRESSURE; Start at 01:00 Meropenem/Sodium Chloride (Merrem 500mg/50 ml(Pmx)) 50 ml @ 100 mls/hr Q12 IVPB Last administered on 09/14/17 08:12; Admin Dose 100 MLS/HR; Start 09/05 at 23:00; Stop 09/14/17 at 23:30 Heparin Sodium (Porcine) (Heparin (5000 Units/0.5 ml)) 5,000 unit Q8 SC Last administered on 09/14/17 05:25; Admin Dose 5,000 UNIT; Start 09/06/17 at 22: 00 Epoetin Kashif (Epogen (Esrd)) 10,000 units TuThSa@17 SC Last administered on 17:13; Admin Dose 10,000 UNITS; Start 09/07/17 at 17:00 Amlodipine Besylate (Norvasc) 10 mg DAILY PO Last administered on 09/14/17 08 :14; Admin Dose 10 MG; Start 09/08/17 at 09:00 Hydralazine HCl 25 mg 25 mg TID PO Last administered on 09/14/17 12:09; Admin Dose 25 MG; Start 09/08/17 at 13:00 Caspofungin/ Sodium Chloride (Cancidas/NS) 250 ml @ 250 mls/hr Q24H IVPB Last administered on 09/13/17 15:37; Admin Dose 250 MLS/HR; Start 09/10/17 at 15: 30 Potassium Chloride (Klor-Con 20) 20 meq DAILY PO Last administered on 08:14; Admin Dose 20 MEQ; Start 09/10/17 at 09:00 Bisoprolol Fumarate (Zebeta) 15 mg DAILY PO Last administered on 09/14/17 08: 12; Admin Dose 15 MG; Start 09/11/17 at 09:00 Insulin Glargine 13 unit 13 unit QHS SC Last administered on 09/13/17 20:31; Admin Dose 13 UNIT; Start 09/11/17 at 21:00 Vancomycin HCl (Vancocin) 250 ml @ 125 mls/hr Q72H IVPB ; Start 09/14/17 at 22 :00; Stop 09/14/17 at 23:30 Furosemide (Lasix) 40 mg ,13,18 IV Last administered on 09/14/17t 12:09; Admin Dose 40 MG; Start 09/12/17 at 09:00 JOANA BARKLEY MD Sep 14, 2017 14:41
[2017-09-14] MEDS: CASPOFUNGIN 50 MG in SOD CHLORIDE 0.9% 250 ML IVPB SCH (15:31)
--- NOTE | 2017-09-14 16:14 | CONS ---
Date/Time of Note Date/Time of Note DATE: 09/14/17 TIME: 16:13 Assessment/Plan Assessment/Plan Additional Assessment/Plan Acute decompensated diastolic congestive heart failure Preserved ejection fraction Mild to moderate aortic valve stenosis Volume overload Sepsis Pneumonia Cellulitis Acute on chronic kidney disease -Overall respiratory status continues to improve, continue diuretics as per our nephrology colleagues. Antibiotics as per infectious disease. Blood pressure trend labile but improved over the past 24 hours. If chest x-ray does not improve with diuretics, consider thoracentesis. Consultation Date/Type/Reason Admit Date/Time Aug 24, 2017 at 19:05 Initial Consult Date 08/31/17 Type of Consultation: cv Referring Provider: GIA DUMONT 24 HR Interval Summary Free Text/Dictation Patient's family bedside, denies shortness of breath currently and overall feeling better Exam/Review of Systems Vital Signs Vitals Vital Signs Date Time Temp Pulse Resp B/P Pulse Ox O2 Delivery O2 Flow Rate FiO2 09/14/17 14:28 99.1 85 18 157/70 97 09/14/17 13:03 2.0 09/14/17 12:55 Nasal Cannula 28 Intake and Output 09/13/17 09/13/17 09/14/17 15:00 23:00 07:00 Intake Total 1470 ml 360 ml Output Total 1900 ml 1900 ml Balance -430 ml -1540 ml Exam No apparent distress, family bedside Constitutional: alert, oriented Head: normocephalic Respiratory: other (Coarse breath sounds bilaterally, decreased at the bases) Cardiovascular: other (S1-S2 heard), regular rate and rhythm, systolic murmur Gastrointestinal: bowel sounds, non-tender, soft Extremities: edema Results Result Diagram: 09/13/17 0550 09/14/17 0556 Results 24 hrs Laboratory Tests Test 09/13/17 17:11 09/13/17 20:26 09/14/17 02:03 09/14/17 05:56 Bedside Glucose 172 202 101 Sodium Level 137 Potassium Level 3.5 Chloride Level 97 Carbon Dioxide Level 31 Anion Gap 13 Blood Urea Nitrogen 47 H Creatinine 2.35 H Glucose Level 72 Calcium Level 8.5 Test 09/14/17 08:33 09/14/17 12:10 Bedside Glucose 74 161 Medications Medications Current Medications Ondansetron HCl (Zofran Inj) 4 mg Q6H PRN IV NAUSEA AND/OR VOMITING Last administered on 09/04/17 13:47; Admin Dose 4 MG; Start 08/25/17 at 08:00 Morphine Sulfate (morphine) 2 mg Q4H PRN IV 5-10/10 PAIN Last administered on 09/01/17 20:06; Admin Dose 2 MG; Start 08/25/17 at 08:00 Loratadine (Claritin) 10 mg DAILY PO Last administered on 09/14/17 08:14; Admin Dose 10 MG; Start 08/25/17 at 09:00 Losartan Potassium (Cozaar) 50 mg DAILY PO Last administered on 09/14/17 08: 14; Admin Dose 50 MG; Start 08/25/17 at 09:00 Miscellaneous Information 1 ea NOTE XX ; Start 08/25/17 at 14:00 Glucose (Glutose) 15 gm Q15M PRN PO DECREASED GLUCOSE; Start 08/25/17 at 14:00 Glucose (Glutose) 22.5 gm Q15M PRN PO DECREASED GLUCOSE; Start 08/25/17 at 14: 00 Dextrose (D50w Syringe) 25 ml Q15M PRN IV DECREASED GLUCOSE Last administered on 09/05/17 12:07; Admin Dose 25 ML; Start 08/25/17 at 14:00 Dextrose (D50w Syringe) 50 ml Q15M PRN IV DECREASED GLUCOSE Last administered on 09/03/17 20:53; Admin Dose 50 ML; Start 08/25/17 at 14:00 Glucagon (Glucagen) 1 mg Q15M PRN IM DECREASED GLUCOSE; Start 08/25/17 at 14: 00 Glucose (Glutose) 15 gm Q15M PRN BUCCAL DECREASED GLUCOSE; Start 08/25/17 at 14:00 Acetaminophen (Tylenol Tab) 650 mg Q4H PRN PO PAIN AND OR ELEVATED TEMP Last administered on 08/26/17 17:06; Admin Dose 650 MG; Start 08/25/17 at 20:30 Miscellaneous Medication (Bax Susp) 10 ml TID PO Last administered on 12:08; Admin Dose 10 ML; Start 08/29/17 at 13:00 Morphine Sulfate (morphine) 1 mg Q4H PRN IV LESS THAN 5/10 PAIN Last administered on 09/01/17 13:10; Admin Dose 1 MG; Start 08/30/17 at 20:00 Hydralazine HCl (Apresoline) 10 mg Q6H PRN IV ELEVATED SYSTOLIC BP Last administered on 09/13/17 06:46; Admin Dose 10 MG; Start 09/01/17 at 21:30 Silver Sulfadiazine (Thermazene 1% 400 Gm) 1 applic BID TOP Last administered on 09/14/17 08:14; Admin Dose 1 APPLIC; Start 09/04/17 at 14:00 Hydralazine HCl 10 mg 10 mg Q4H PRN IV ELEVATED BLOOD PRESSURE; Start at 01:00 Meropenem/Sodium Chloride (Merrem 500mg/50 ml(Pmx)) 50 ml @ 100 mls/hr Q12 IVPB Last administered on 09/14/17 08:12; Admin Dose 100 MLS/HR; Start 09/05 at 23:00; Stop 09/14/17 at 23:30 Heparin Sodium (Porcine) (Heparin (5000 Units/0.5 ml)) 5,000 unit Q8 SC Last administered on 09/14/17 14:52; Admin Dose 5,000 UNIT; Start 09/06/17 at 22: 00 Epoetin Kashif (Epogen (Esrd)) 10,000 units TuThSa@17 SC Last administered on 17:13; Admin Dose 10,000 UNITS; Start 09/07/17 at 17:00 Amlodipine Besylate (Norvasc) 10 mg DAILY PO Last administered on 09/14/17 08 :14; Admin Dose 10 MG; Start 09/08/17 at 09:00 Hydralazine HCl 25 mg 25 mg TID PO Last administered on 09/14/17 12:09; Admin Dose 25 MG; Start 09/08/17 at 13:00 Caspofungin/ Sodium Chloride (Cancidas/NS) 250 ml @ 250 mls/hr Q24H IVPB Last administered on 09/14/17 15:31; Admin Dose 250 MLS/HR; Start 09/10/17 at 15: 30 Potassium Chloride (Klor-Con 20) 20 meq DAILY PO Last administered on 08:14; Admin Dose 20 MEQ; Start 09/10/17 at 09:00 Bisoprolol Fumarate (Zebeta) 15 mg DAILY PO Last administered on 09/14/17 08: 12; Admin Dose 15 MG; Start 09/11/17 at 09:00 Insulin Glargine 13 unit 13 unit QHS SC Last administered on 09/13/17 20:31; Admin Dose 13 UNIT; Start 09/11/17 at 21:00 Vancomycin HCl (Vancocin) 250 ml @ 125 mls/hr Q72H IVPB ; Start 09/14/17 at 22 :00; Stop 09/14/17 at 23:30 Furosemide (Lasix) 40 mg 09,13,18 IV Last administered on 09/14/17 12:09; Admin Dose 40 MG; Start 09/12/17 at 09:00 Tj Marie DO Sep 14, 2017 16:14
--- NOTE | 2017-09-14 16:47 | PN ---
Date/Time of Note Date/Time of Note DATE: 09/14/17 TIME: 16:47 Assessment/Plan Lines/Catheters IV Catheter Type (from [facility]): Saline Lock Reina in Place (from [facility]): Yes Assessment/Plan Chief Complaint/Hosp Course 1. Left lower extremity cellulitis and edema with history of diabetes;CT lower extremity without abscess -continue supportive measures -elevate above heart level 2. Leukocytosis, without fevers, with history of leukopenia: on prednisone. Improving -abx per ID 3. Diabetes -Nutrition medication optimization -Encourage weight loss 4. Hypertension -Nutrition medication optimization -Encourage weight loss 5. Chronic kidney disease -Judicious fluid management -Avoid nephrotoxic agents 6. Bilateral ground glass changes on CT -s/p abx -pulm toilette 7. Hypoalbuminemia with hypocalcemia -Nutritional optimization 8. Anemia: no acute bleed noted -monitor -transfuse as needed 9. Electrolyte imbalance -optimize lytes Thank you, Problems: Subjective 24 Hr Interval Summary No leg pain. Improved mobility. Swelling improved. Sob improved. Leukocytosis improving. No fevers, chills, cp, palpitations, walsh, dizziness, n/v/d/dysuria. Exam/Review of Systems Vital Signs Vitals Vital Signs Date Time Temp Pulse Resp B/P Pulse Ox O2 Delivery O2 Flow Rate FiO2 09/14/17 14:28 99.1 85 18 157/70 97 09/14/17 13:03 2.0 09/14/17 12:55 Nasal Cannula 28 Intake and Output 09/13/17 09/13/17 09/14/17 15:00 23:00 07:00 Intake Total 1470 ml 360 ml Output Total 1900 ml 1900 ml Balance -430 ml -1540 ml Exam Free Text/Dictation Constitutional: obese, other (Awake), No distress Psych: nl mood/affect, No anxiety Head: atraumatic, normocephalic Eyes: EOMI, PERRL, nl conjunctiva, No icteric ENMT: mucosa pink and dry, nl external ears & nose, nl lips & teeth Neck: non-tender, supple, No jvd Respiratory: sob w exertion improved, wheezing improved. No congested cough Cardiovascular: edema (Left lower extremity- improving), regular rate and rhythm Gastrointestinal: non-tender, soft, No rebound or guarding Musculoskeletal: joint tenderness (Left ankle), No nl extremities to inspection Extremities: edema, normal pulses, tenderness, No calf tenderness Neurological: nl mental status, nl strength Skin: rash or lesions (Left lower extremity-discoloration improved, flaky skin) , No diaphoresis, No nl turgor Lymph: nl lymph nodes, nontender Results Result Diagram: 09/13/17 0550 09/14/17 0556 BOB FUNEZ MD Sep 14, 2017 16:47
[2017-09-14] MEDS: EPOETIN 10000 UNITS/1 ML INJ (ESRD) SC SCH (17:02)
--- NOTE | 2017-09-14 17:57 | CONS ---
Date/Time of Note Date/Time of Note DATE: 09/14/17 TIME: 17:56 Assessment/Plan Assessment/Plan Chief Complaint/Hosp Course 1. acute on-chronic kidney disease could be due to underlying sepsis/meds 2 Underlying acute tubular necrosis, BETTER 3 Likely underlying diabetic nephropathy, underlying hypertensive nephrosclerosis 4 pancytopenia could be due to sepsis, as well as drug-induced mthx/sulpha 5. Hyponatremia. resolved 6. METABOLIC ACIDOSIS BETTER 7 Nephrotic range proteinuria 8 BLE atherosclerosis 9 PNEUMONIA AND PUL EDEMA BETTER PLAN DIURETIC [facility] Problems: Consultation Date/Type/Reason Admit Date/Time Aug 24, 2017 at 19:05 Initial Consult Date RENAL F/U Type of Consultation: no distress Referring Provider: GIA DUMONT 24 HR Interval Summary Constitutional: other (no sob) Exam/Review of Systems Vital Signs Vitals Vital Signs Date Time Temp Pulse Resp B/P Pulse Ox O2 Delivery O2 Flow Rate FiO2 09/14/17 16:55 79 20 98 Nasal Cannula 2.0 28 09/14/17 14:28 99.1 157/70 Intake and Output 09/13/17 09/13/17 09/14/17 15:00 23:00 07:00 Intake Total 1470 ml 360 ml Output Total 1900 ml 1900 ml Balance -430 ml -1540 ml Exam Respiratory: clear to auscultation Cardiovascular: regular rate and rhythm Gastrointestinal: bowel sounds (+), soft Extremities: edema (less) Results Result Diagram: 09/13/17 0550 09/14/17 0556 Results 24 hrs Laboratory Tests Test 09/13/17 20:26 09/14/17 02:03 09/14/17 05:56 09/14/17 08:33 Bedside Glucose 202 101 74 Sodium Level 137 Potassium Level 3.5 Chloride Level 97 Carbon Dioxide Level 31 Anion Gap 13 Blood Urea Nitrogen 47 H Creatinine 2.35 H Glucose Level 72 Calcium Level 8.5 Test 09/14/17 12:10 09/14/17 17:04 Bedside Glucose 161 208 Medications Medications Current Medications Ondansetron HCl (Zofran Inj) 4 mg Q6H PRN IV NAUSEA AND/OR VOMITING Last administered on 09/04/17t 13:47; Admin Dose 4 MG; Start 08/25/17 at 08:00 Morphine Sulfate (morphine) 2 mg Q4H PRN IV -10/10 PAIN Last administered on 09/01/17 20:06; Admin Dose 2 MG; Start 08/25/17 at 08:00 Loratadine (Claritin) 10 mg DAILY PO Last administered on 09/14/17 08:14; Admin Dose 10 MG; Start 08/25/17 at 09:00 Losartan Potassium (Cozaar) 50 mg DAILY PO Last administered on 09/14/17 08: 14; Admin Dose 50 MG; Start 08/25/17 at 09:00 Miscellaneous Information 1 ea NOTE XX ; Start 08/25/17 at 14:00 Glucose (Glutose) 15 gm Q15M PRN PO DECREASED GLUCOSE; Start 08/25/17 at 14:00 Glucose (Glutose) 22.5 gm Q15M PRN PO DECREASED GLUCOSE; Start 08/25/17 at 14: 00 Dextrose (D50w Syringe) 25 ml Q15M PRN IV DECREASED GLUCOSE Last administered on 09/05/17 12:07; Admin Dose 25 ML; Start 08/25/17 at 14:00 Dextrose (D50w Syringe) 50 ml Q15M PRN IV DECREASED GLUCOSE Last administered on 09/03/17 20:53; Admin Dose 50 ML; Start 08/25/17 at 14:00 Glucagon (Glucagen) 1 mg Q15M PRN IM DECREASED GLUCOSE; Start 08/25/17 at 14: 00 Glucose (Glutose) 15 gm Q15M PRN BUCCAL DECREASED GLUCOSE; Start 08/25/17 at 14:00 Acetaminophen (Tylenol Tab) 650 mg Q4H PRN PO PAIN AND OR ELEVATED TEMP Last administered on 08/26/17 17:06; Admin Dose 650 MG; Start 08/25/17 at 20:30 Miscellaneous Medication (Bax Susp) 10 ml TID PO Last administered on 12:08; Admin Dose 10 ML; Start 08/29/17 at 13:00 Morphine Sulfate (morphine) 1 mg Q4H PRN IV LESS THAN 5/10 PAIN Last administered on 09/01/17 13:10; Admin Dose 1 MG; Start 08/30/17 at 20:00 Hydralazine HCl (Apresoline) 10 mg Q6H PRN IV ELEVATED SYSTOLIC BP Last administered on 09/13/17 06:46; Admin Dose 10 MG; Start 09/01/17 at 21:30 Silver Sulfadiazine (Thermazene 1% 400 Gm) 1 applic BID TOP Last administered on 09/14/17 08:14; Admin Dose 1 APPLIC; Start 09/04/17 at 14:00 Hydralazine HCl 10 mg 10 mg Q4H PRN IV ELEVATED BLOOD PRESSURE; Start at 01:00 Meropenem/Sodium Chloride (Merrem 500mg/50 ml(Pmx)) 50 ml @ 100 mls/hr Q12 IVPB Last administered on 09/14/17 08:12; Admin Dose 100 MLS/HR; Start 09/05 at 23:00; Stop 09/14/17 at 23:30 Heparin Sodium (Porcine) (Heparin (5000 Units/0.5 ml)) 5,000 unit Q8 SC Last administered on 09/14/17 14:52; Admin Dose 5,000 UNIT; Start 09/06/17 at 22: 00 Epoetin Kashif (Epogen (Esrd)) 10,000 units TuThSa@17 SC Last administered on 17:02; Admin Dose 10,000 UNITS; Start 09/07/17 at 17:00 Amlodipine Besylate (Norvasc) 10 mg DAILY PO Last administered on 09/14/17 08 :14; Admin Dose 10 MG; Start 09/08/17 at 09:00 Hydralazine HCl 25 mg 25 mg TID PO Last administered on 09/14/17 12:09; Admin Dose 25 MG; Start 09/08/17 at 13:00 Caspofungin/ Sodium Chloride (Cancidas/NS) 250 ml @ 250 mls/hr Q24H IVPB Last administered on 09/14/17 15:31; Admin Dose 250 MLS/HR; Start 09/10/17 at 15: 30 Potassium Chloride (Klor-Con 20) 20 meq DAILY PO Last administered on 08:14; Admin Dose 20 MEQ; Start 09/10/17 at 09:00 Bisoprolol Fumarate (Zebeta) 15 mg DAILY PO Last administered on 09/14/17 08: 12; Admin Dose 15 MG; Start 09/11/17 at 09:00 Insulin Glargine 13 unit 13 unit QHS SC Last administered on 09/13/17 20:31; Admin Dose 13 UNIT; Start 09/11/17 at 21:00 Vancomycin HCl (Vancocin) 250 ml @ 125 mls/hr Q72H IVPB ; Start 09/14/17 at 22 :00; Stop 09/14/17 at 23:30 Furosemide (Lasix) 40 mg 09,13,18 IV Last administered on 09/14/17 17:02; Admin Dose 40 MG; Start 09/12/17 at 09:00 JENNA PATTEN MD Sep 14, 2017 17:56
[2017-09-14] MEDS: hydrALAzine 20 MG INJ IV PRN (20:08)
[2017-09-14] MEDS: INSULIN GLARGINE [LANtus] 3 ML PEN SC SCH (20:56)
[2017-09-14] MEDS ORDERED: VANCOMYCIN 1 GM in NS 250 ML IVPB SCH (22:00)
[2017-09-14] MEDS ORDERED: FUROSEMIDE 40 MG INJ IV ONE (23:00)
[2017-09-15] VITALS (8 sets, daily range): BP systolic 141–172; BP diastolic 65–74; PULSE 87–98; RESP 17–21
[2017-09-15] MEDS: ALBUTEROL/IPRATROPIUM (NEB) 3 ML AMP HHN SCH ×6 (00:25→20:25)
[2017-09-15] MEDS: hydrALAzine 20 MG INJ IV ONE ×2 (00:38→00:43)
[2017-09-15] MEDS: hydrALAzine 20 MG INJ IV PRN (02:07)
[2017-09-15] MEDS: HEPARIN 5,000 UNIT/0.5 ML VIAL SC SCH ×3 (06:35→20:56)
[2017-09-15] MEDS: ACCU-CHEK XX SCH ×4 (08:00→20:47)
[2017-09-15] MEDS: BISOPROLOL 5 MG TAB PO SCH (08:02)
[2017-09-15] MEDS: LOSARTAN 50 MG TAB PO SCH (08:03)
[2017-09-15] MEDS: LORATADINE 10 MG TAB PO SCH (08:03)
[2017-09-15] MEDS: FUROSEMIDE 40 MG INJ IV SCH ×3 (08:03→17:29)
[2017-09-15] MEDS: POTASSIUM CHLORIDE (SR) 20 MEQ TAB PO SCH (08:04)
[2017-09-15] MEDS: SILVER SULFADIAZINE 1% 400 GM CR TOP SCH ×2 (08:04→20:45)
[2017-09-15] MEDS: AMLODIPINE 10 MG TAB PO SCH (08:04)
[2017-09-15] MEDS: DIPHENHYD/MYLANTA/LIDO (PO SYG) PO SCH ×3 (08:05→20:44)
[2017-09-15] MEDS: INSULIN ASPART [NOVOLOG] 3 ML PEN SC SCH ×4 (08:15→20:47)
--- NOTE | 2017-09-15 11:41 | CONS ---
Date/Time of Note Date/Time of Note DATE: 09/15/17 TIME: 11:39 Assessment/Plan Assessment/Plan Additional Assessment/Plan Acute decompensated diastolic congestive heart failure Preserved ejection fraction Hypertension Mild to moderate aortic valve stenosis Volume overload Sepsis Pneumonia Cellulitis Acute on chronic kidney disease -Overall respiratory status continues to improve, continue diuretics as per our nephrology colleagues. Antibiotics as per infectious disease. Blood pressure trend increasing, will increased dose of hydralazine. If chest x-ray does not improve with diuretics, consider thoracentesis. Consultation Date/Type/Reason Admit Date/Time Aug 24, 2017 at 19:05 Initial Consult Date 08/31/17 Type of Consultation: cv Referring Provider: GIA DUMONT 24 HR Interval Summary Free Text/Dictation Patient seen and examined, denies shortness of breath Exam/Review of Systems Vital Signs Vitals Vital Signs Date Time Temp Pulse Resp B/P Pulse Ox O2 Delivery O2 Flow Rate FiO2 09/15/17 08:59 79 20 96 Nasal Cannula 2.0 09/15/17 07:18 98.3 168/71 09/14/17 16:55 28 Intake and Output 09/14/17 09/14/17 09/15/17 15:00 23:00 07:00 Intake Total 1070 ml 730 ml Output Total 1800 ml 1700 ml Balance -730 ml -970 ml Exam No apparent distress Constitutional: alert, oriented Head: normocephalic Respiratory: other (Coarse breath sounds bilaterally, no wheezing) Cardiovascular: other (S1-S2 heard), regular rate and rhythm Gastrointestinal: bowel sounds, non-tender, soft Extremities: edema Results Result Diagram: 09/15/17 0529 09/15/1729 Results 24 hrs Laboratory Tests Test 09/14/17 12:10 09/14/17 17:04 09/14/17 20:50 09/15/17 05:29 Bedside Glucose 161 208 209 White Blood Count 14.6 H Red Blood Count 2.73 L Hemoglobin 8.0 L Hematocrit 25.1 L Mean Corpuscular Volume 91.9 Mean Corpuscular Hemoglobin 29.3 Mean Corpuscular Hemoglobin Concent 31.9 L Red Cell Distribution Width 18.7 H Platelet Count 456 H Mean Platelet Volume 9.5 Neutrophils % 66.0 Lymphocytes % 12.9 L Monocytes % 17.2 H Eosinophils % 0.4 Basophils % 0.3 Nucleated Red Blood Cells % 0.3 H Neutrophils # 9.6 H Lymphocytes # 1.9 Monocytes # 2.5 H Eosinophils # 0.1 Basophils # 0.0 Nucleated Red Blood Cells # 0.1 H Sodium Level 138 Potassium Level 3.7 Chloride Level 97 Carbon Dioxide Level 32 H Anion Gap 13 Blood Urea Nitrogen 44 H Creatinine 2.27 H Glucose Level 68 L Calcium Level 8.0 L Phosphorus Level 4.1 Magnesium Level 2.0 Albumin 3.0 L Test 09/15/17 08:15 09/15/17 08:36 09/15/17 08:57 Bedside Glucose 67 L 103 134 Medications Medications Current Medications Ondansetron HCl (Zofran Inj) 4 mg Q6H PRN IV NAUSEA AND/OR VOMITING Last administered on 09/04/17 13:47; Admin Dose 4 MG; Start 08/25/17 at 08:00 Morphine Sulfate (morphine) 2 mg Q4H PRN IV PAIN Last administered on 09/01/17 20:06; Admin Dose 2 MG; Start 08/25/17 at 08:00 Loratadine (Claritin) 10 mg DAILY PO Last administered on 09/15/17 08:03; Admin Dose 10 MG; Start 08/25/17 at 09:00 Losartan Potassium (Cozaar) 50 mg DAILY PO Last administered on 09/15/17 08:03 ; Admin Dose 50 MG; Start 08/25/17 at 09:00 Miscellaneous Information 1 ea NOTE XX ; Start 08/25/17 at 14:00 Glucose (Glutose) 15 gm Q15M PRN PO DECREASED GLUCOSE; Start 08/25/17 at 14:00 Glucose (Glutose) 22.5 gm Q15M PRN PO DECREASED GLUCOSE; Start 08/25/17 at 14: 00 Dextrose (D50w Syringe) 25 ml Q15M PRN IV DECREASED GLUCOSE Last administered on 09/05/17 12:07; Admin Dose 25 ML; Start 08/25/17 at 14:00 Dextrose (D50w Syringe) 50 ml Q15M PRN IV DECREASED GLUCOSE Last administered on 09/03/17 20:53; Admin Dose 50 ML; Start 08/25/17 at 14:00 Glucagon (Glucagen) 1 mg Q15M PRN IM DECREASED GLUCOSE; Start 08/25/17 at 14: 00 Glucose (Glutose) 15 gm Q15M PRN BUCCAL DECREASED GLUCOSE; Start 08/25/17 at 14:00 Acetaminophen (Tylenol Tab) 650 mg Q4H PRN PO PAIN AND OR ELEVATED TEMP Last administered on 08/26/17 17:06; Admin Dose 650 MG; Start 08/25/17 at 20:30 Miscellaneous Medication (Bax Susp) 10 ml TID PO Last administered on 08:05; Admin Dose 10 ML; Start 08/29/17 at 13:00 Morphine Sulfate (morphine) 1 mg Q4H PRN IV LESS THAN 5/10 PAIN Last administered on 09/01/17 13:10; Admin Dose 1 MG; Start 08/30/17 at 20:00 Hydralazine HCl (Apresoline) 10 mg Q6H PRN IV ELEVATED SYSTOLIC BP Last administered on 09/15/17 02:07; Admin Dose 10 MG; Start 09/01/17 at 21:30 Silver Sulfadiazine (Thermazene 1% 400 Gm) 1 applic BID TOP Last administered on 09/15/17 08:04; Admin Dose 1 APPLIC; Start 09/04/17 at 14:00 Hydralazine HCl (Apresoline) 10 mg Q4H PRN IV ELEVATED BLOOD PRESSURE; Start 09/05/17 at 01:00 Heparin Sodium (Porcine) (Heparin (5000 Units/0.5 ml)) 5,000 unit Q8 SC Last administered on 09/15/17 06:35; Admin Dose 5,000 UNIT; Start 09/06/17 at 22:00 Epoetin Kashif (Epogen (Esrd)) 10,000 units TuThSa@17 SC Last administered on 17:02; Admin Dose 10,000 UNITS; Start 09/07/17 at 17:00 Amlodipine Besylate (Norvasc) 10 mg DAILY PO Last administered on 09/15/17 08: 04; Admin Dose 10 MG; Start 09/08/17 at 09:00 Hydralazine HCl 25 mg 25 mg TID PO Last administered on 09/15/17 08:03; Admin Dose 25 MG; Start 09/08/17 at 13:00 Caspofungin/ Sodium Chloride (Cancidas/NS) 250 ml @ 250 mls/hr Q24H IVPB Last administered on 09/14/17 15:31; Admin Dose 250 MLS/HR; Start 09/10/17 at 15: 30 Potassium Chloride (Klor-Con 20) 20 meq DAILY PO Last administered on 08:04; Admin Dose 20 MEQ; Start 09/10/17 at 09:00 Bisoprolol Fumarate (Zebeta) 15 mg DAILY PO Last administered on 09/15/17 08: 02; Admin Dose 15 MG; Start 09/11/17 at 09:00 Insulin Glargine (Lantus) 13 unit QHS SC Last administered on 09/14/17 20:56 ; Admin Dose 13 UNIT; Start 09/11/17 at 21:00 Furosemide (Lasix) 40 mg ,,18 IV Last administered on 09/15/17 08:03; Admin Dose 40 MG; Start 09/12/17 at 09:00 Tj Marie DO Sep 15, 2017 11:41
--- NOTE | 2017-09-15 12:33 | PN ---
Date/Time of Note Date/Time of Note DATE: 09/15/17 TIME: 12:23 Assessment/Plan VTE Prophylaxis VTE Prophylaxis Intervention: contraindicated Lines/Catheters IV Catheter Type (from Nrsg): Saline Lock Urinary Cath still in place: Yes Reason Cath still needed: skin wounds contaminated by urine Assessment/Plan Assessment/Plan 1. Acute respiratory distress secondary to Bilateral Pneumonia- improving - Patient found to have b/l PNA on initial chest xray - Doing well on 2L NC and saturating >90%. Will continue to wean off supplemental O2 - Completed course of antibiotics - Pulmonology consultation placed and appreciated recommendations - On Neb treatments - Completed course of steroids - Continue on Lasix 2. HTN - BP elevated this am and hydralazine increased to 50mg per Cardiology. - Continue monitoring and adjust as needed 3. Pulmonary edema- improving - Cardiology on board and recommendations appreciated - On Lasix which has been effective - Repeat CXR shows improvement with small b/l effusions 4. Acute on chronic diastolic congestive heart failure - continue lasix - Cardiology on board and recommendations appreciated - ECHO results noted 5. Left lower extremity cellulitis- resolving - ID and Surgery on board. Recommendations appreciated - Antibiotic per ID - CT LE showed cellulitis and no evidence of osteomyelitis. Xray LE also performed and no osteomyelitis appreciated. -gen surg/vascular surg do not feel any acute intervention is needed 6. Mucositis 2/2 methotrexate use- improved - diphen/lido/mal oral solution ordered. Morphine if pain remain intolerable for PO intake - Tolerating soft mech diet 7. Pancytopenia- improved - now leukocytosis, possible due to filgrastim per heme/onc - Hgb still low. 8.0, but no need for transfusions at this time. Will transfuse if <7 - Hematology on board and recommendations appreciated. - s/p multiple blood transfusions and plt transfusions. - Plts elevated and may be reactive 8. Leukocytosis- trending down - Continue to monitor. May be secondary to Neupogen 9. Neutropenia- resolved - WBC downtrending now <15 and Neupogen no longer on board - Will continue to monitor - Heme on board and recommendations appreciated 10. BK vs BK on CKD - Nephrology on board and recommendations appreciated. - Cr continues to improve since admission, likely chronic component - Monitor UOP - HIV negative, KASSY negative 11. Hypokalemia - K 3.7, resolved 12. Eosinophilia - normalized after d/c sulfasalazine and mtx 13. Vascular insufficiency - Vascular surgery on board and recommendations appreciated. No current vascular intervention as the patient has not developed any gangrene or ulcers - Will need to follow up as outpatient due to LE atherosclerosis 14. Disposition - will touch base with CM regarding SNF placement Subjective 24 Hr Interval Summary Free Text/Dictation Patient resting comfortably and in no acute distress. BP was elevated and given dose of hydralazine this am. No other acute overnight events. Exam/Review of Systems Vital Signs Vitals Vital Signs Date Time Temp Pulse Resp B/P Pulse Ox O2 Delivery O2 Flow Rate FiO2 09/15/17 08:59 79 20 96 Nasal Cannula 2.0 09/15/17 07:18 98.3 168/71 09/14/17 16:55 28 Intake and Output 09/14/17 09/14/17 09/15/17 15:00 23:00 07:00 Intake Total 1070 ml 730 ml Output Total 1800 ml 1700 ml Balance -730 ml -970 ml Exam General: Patient is resting comfortably and in NAD Head: Normocephalic atraumatic Eyes: EOMI, pupils reactive to light Neck: Supple, nontender, midline Respiratory: crackles bases, diminished breath sounds, no wheezing Cardiovascular: regular rate, no obvious murmurs Gastrointestinal: non-tender to palpation, bowel sounds heard. soft, nondistended Neurological: Moves all extremities spontaneously Skin: improvement in discoloration LLE, dryness of skin but less erythema. no tenderness Results Result Diagram: 09/15/1752809/15/17528 Results 24 hrs Laboratory Tests Test 09/14/17 17:04 09/14/17 20:50 09/15/17 05:29 09/15/17 08:15 Bedside Glucose 208 209 67 L White Blood Count 14.6 H Red Blood Count 2.73 L Hemoglobin 8.0 L Hematocrit 25.1 L Mean Corpuscular Volume 91.9 Mean Corpuscular Hemoglobin 29.3 Mean Corpuscular Hemoglobin Concent 31.9 L Red Cell Distribution Width 18.7 H Platelet Count 456 H Mean Platelet Volume 9.5 Neutrophils % 66.0 Lymphocytes % 12.9 L Monocytes % 17.2 H Eosinophils % 0.4 Basophils % 0.3 Nucleated Red Blood Cells % 0.3 H Neutrophils # 9.6 H Lymphocytes # 1.9 Monocytes # 2.5 H Eosinophils # 0.1 Basophils # 0.0 Nucleated Red Blood Cells # 0.1 H Sodium Level 138 Potassium Level 3.7 Chloride Level 97 Carbon Dioxide Level 32 H Anion Gap 13 Blood Urea Nitrogen 44 H Creatinine 2.27 H Glucose Level 68 L Calcium Level 8.0 L Phosphorus Level 4.1 Magnesium Level 2.0 Albumin 3.0 L Test 09/15/17 08:36 09/15/17 08:57 09/15/17 12:09 Bedside Glucose 103 134 188 Medications Medications Current Medications Ondansetron HCl (Zofran Inj) 4 mg Q6H PRN IV NAUSEA AND/OR VOMITING Last administered on 09/04/17 13:47; Admin Dose 4 MG; Start 08/25/17 at 08:00 Morphine Sulfate (morphine) 2 mg Q4H PRN IV 5 PAIN Last administered on 09/01/17 20:06; Admin Dose 2 MG; Start 08/25/17 at 08:00 Loratadine (Claritin) 10 mg DAILY PO Last administered on 09/15/17 08:03; Admin Dose 10 MG; Start 08/25/17 at 09:00 Losartan Potassium (Cozaar) 50 mg DAILY PO Last administered on 09/15/17 08:03 ; Admin Dose 50 MG; Start 08/25/17 at 09:00 Miscellaneous Information 1 ea NOTE XX ; Start 08/25/17 at 14:00 Glucose (Glutose) 15 gm Q15M PRN PO DECREASED GLUCOSE; Start 08/25/17 at 14:00 Glucose (Glutose) 22.5 gm Q15M PRN PO DECREASED GLUCOSE; Start 08/25/17 at 14: 00 Dextrose (D50w Syringe) 25 ml Q15M PRN IV DECREASED GLUCOSE Last administered on 09/05/17 12:07; Admin Dose 25 ML; Start 08/25/17 at 14:00 Dextrose (D50w Syringe) 50 ml Q15M PRN IV DECREASED GLUCOSE Last administered on 09/03/17 20:53; Admin Dose 50 ML; Start 08/25/17 at 14:00 Glucagon (Glucagen) 1 mg Q15M PRN IM DECREASED GLUCOSE; Start 08/25/17 at 14: 00 Glucose (Glutose) 15 gm Q15M PRN BUCCAL DECREASED GLUCOSE; Start 08/25/17 at 14:00 Acetaminophen (Tylenol Tab) 650 mg Q4H PRN PO PAIN AND OR ELEVATED TEMP Last administered on 08/26/17 17:06; Admin Dose 650 MG; Start 08/25/17 at 20:30 Miscellaneous Medication (Bax Susp) 10 ml TID PO Last administered on 12:10; Admin Dose 10 ML; Start 08/29/17 at 13:00 Morphine Sulfate (morphine) 1 mg Q4H PRN IV LESS THAN 5/10 PAIN Last administered on 09/01/17 13:10; Admin Dose 1 MG; Start 08/30/17 at 20:00 Hydralazine HCl (Apresoline) 10 mg Q6H PRN IV ELEVATED SYSTOLIC BP Last administered on 09/15/17 02:07; Admin Dose 10 MG; Start 09/01/17 at 21:30 Silver Sulfadiazine (Thermazene 1% 400 Gm) 1 applic BID TOP Last administered on 09/15/17 08:04; Admin Dose 1 APPLIC; Start 09/04/17 at 14:00 Hydralazine HCl (Apresoline) 10 mg Q4H PRN IV ELEVATED BLOOD PRESSURE; Start 09/05/17 at 01:00 Heparin Sodium (Porcine) (Heparin (5000 Units/0.5 ml)) 5,000 unit Q8 SC Last administered on 09/15/17 06:35; Admin Dose 5,000 UNIT; Start 09/06/17 at 22:00 Epoetin Kashif (Epogen (Esrd)) 10,000 units TuThSa@17 SC Last administered on 17:02; Admin Dose 10,000 UNITS; Start 09/07/17 at 17:00 Amlodipine Besylate 10 mg 10 mg DAILY PO Last administered on 09/15/17 08:04; Admin Dose 10 MG; Start 09/08/17 at 09:00 Caspofungin/ Sodium Chloride (Cancidas/NS) 250 ml @ 250 mls/hr Q24H IVPB Last administered on 09/14/17 15:31; Admin Dose 250 MLS/HR; Start 09/10/17 at 15: 30 Potassium Chloride (Klor-Con 20) 20 meq DAILY PO Last administered on 08:04; Admin Dose 20 MEQ; Start 09/10/17 at 09:00 Bisoprolol Fumarate (Zebeta) 15 mg DAILY PO Last administered on 09/15/17 08: 02; Admin Dose 15 MG; Start 09/11/17 at 09:00 Insulin Glargine (Lantus) 13 unit QHS SC Last administered on 09/14/17 20:56 ; Admin Dose 13 UNIT; Start 09/11/17 at 21:00 Furosemide (Lasix) 40 mg ,,18 IV Last administered on 09/15/17 12:10; Admin Dose 40 MG; Start 09/12/17 at 09:00 Hydralazine HCl (Apresoline) 50 mg TID PO Last administered on 09/15/17 12:10 ; Admin Dose 50 MG; Start 09/15/17 at 13:00 JOANA BARKLEY MD Sep 15, 2017 12:33
--- NOTE | 2017-09-15 13:10 | CONS ---
Date/Time of Note Date/Time of Note DATE: 09/15/17 TIME: 13:09 Consult Date/Type/Reason Admit Date/Time Aug 24, 2017 at 19:05 Initial Consult Date 08/29/17 Type of Consultation: ID Ordering Provider: GIA DUMONT Objective Vital Signs Date Time Temp Pulse Resp B/P Pulse Ox O2 Delivery O2 Flow Rate FiO2 09/15/17 08:59 79 20 96 Nasal Cannula 2.0 09/15/17 07:18 98.3 168/71 09/14/17 16:55 28 Intake and Output 09/14/17 09/14/17 09/15/17 15:00 23:00 07:00 Intake Total 1070 ml 730 ml Output Total 1800 ml 1700 ml Balance -730 ml -970 ml Results/Medications Result Diagram: 09/15/17 0529 09/15/1729 Results 24 hrs Laboratory Tests Test 09/14/17 17:04 09/14/17 20:50 09/15/17 05:29 09/15/17 08:15 Bedside Glucose 208 209 67 L White Blood Count 14.6 H Red Blood Count 2.73 L Hemoglobin 8.0 L Hematocrit 25.1 L Mean Corpuscular Volume 91.9 Mean Corpuscular Hemoglobin 29.3 Mean Corpuscular Hemoglobin Concent 31.9 L Red Cell Distribution Width 18.7 H Platelet Count 456 H Mean Platelet Volume 9.5 Neutrophils % 66.0 Lymphocytes % 12.9 L Monocytes % 17.2 H Eosinophils % 0.4 Basophils % 0.3 Nucleated Red Blood Cells % 0.3 H Neutrophils # 9.6 H Lymphocytes # 1.9 Monocytes # 2.5 H Eosinophils # 0.1 Basophils # 0.0 Nucleated Red Blood Cells # 0.1 H Sodium Level 138 Potassium Level 3.7 Chloride Level 97 Carbon Dioxide Level 32 H Anion Gap 13 Blood Urea Nitrogen 44 H Creatinine 2.27 H Glucose Level 68 L Calcium Level 8.0 L Phosphorus Level 4.1 Magnesium Level 2.0 Albumin 3.0 L Test 09/15/17 08:36 09/15/17 08:57 09/15/17 12:09 Bedside Glucose 103 134 188 Medications Current Medications Ondansetron HCl (Zofran Inj) 4 mg Q6H PRN IV NAUSEA AND/OR VOMITING Last administered on 09/04/17t 13:47; Admin Dose 4 MG; Start 08/25/17 at 08:00 Morphine Sulfate (morphine) 2 mg Q4H PRN IV 5-10/10 PAIN Last administered on 09/01/17 20:06; Admin Dose 2 MG; Start 08/25/17 at 08:00 Loratadine (Claritin) 10 mg DAILY PO Last administered on 09/15/17 08:03; Admin Dose 10 MG; Start 08/25/17 at 09:00 Losartan Potassium (Cozaar) 50 mg DAILY PO Last administered on 09/15/17 08:03 ; Admin Dose 50 MG; Start 08/25/17 at 09:00 Miscellaneous Information 1 ea NOTE XX ; Start 08/25/17 at 14:00 Glucose (Glutose) 15 gm Q15M PRN PO DECREASED GLUCOSE; Start 08/25/17 at 14:00 Glucose (Glutose) 22.5 gm Q15M PRN PO DECREASED GLUCOSE; Start 08/25/17 at 14: 00 Dextrose (D50w Syringe) 25 ml Q15M PRN IV DECREASED GLUCOSE Last administered on 09/05/17 12:07; Admin Dose 25 ML; Start 08/25/17 at 14:00 Dextrose (D50w Syringe) 50 ml Q15M PRN IV DECREASED GLUCOSE Last administered on 09/03/17 20:53; Admin Dose 50 ML; Start 08/25/17 at 14:00 Glucagon (Glucagen) 1 mg Q15M PRN IM DECREASED GLUCOSE; Start 08/25/17 at 14: 00 Glucose (Glutose) 15 gm Q15M PRN BUCCAL DECREASED GLUCOSE; Start 08/25/17 at 14:00 Acetaminophen (Tylenol Tab) 650 mg Q4H PRN PO PAIN AND OR ELEVATED TEMP Last administered on 08/26/17 17:06; Admin Dose 650 MG; Start 08/25/17 at 20:30 Miscellaneous Medication (Bax Susp) 10 ml TID PO Last administered on 12:10; Admin Dose 10 ML; Start 08/29/17 at 13:00 Morphine Sulfate (morphine) 1 mg Q4H PRN IV LESS THAN 5/10 PAIN Last administered on 09/01/17 13:10; Admin Dose 1 MG; Start 08/30/17 at 20:00 Hydralazine HCl (Apresoline) 10 mg Q6H PRN IV ELEVATED SYSTOLIC BP Last administered on 09/15/17 02:07; Admin Dose 10 MG; Start 09/01/17 at 21:30 Silver Sulfadiazine (Thermazene 1% 400 Gm) 1 applic BID TOP Last administered on 09/15/17 08:04; Admin Dose 1 APPLIC; Start 09/04/17 at 14:00 Hydralazine HCl (Apresoline) 10 mg Q4H PRN IV ELEVATED BLOOD PRESSURE; Start 09/05/17 at 01:00 Heparin Sodium (Porcine) (Heparin (5000 Units/0.5 ml)) 5,000 unit Q8 SC Last administered on 09/15/17 06:35; Admin Dose 5,000 UNIT; Start 09/06/17 at 22:00 Epoetin Kashif (Epogen (Esrd)) 10,000 units TuThSa@17 SC Last administered on 17:02; Admin Dose 10,000 UNITS; Start 09/07/17 at 17:00 Amlodipine Besylate 10 mg 10 mg DAILY PO Last administered on 09/15/17 08:04; Admin Dose 10 MG; Start 09/08/17 at 09:00 Caspofungin/ Sodium Chloride (Cancidas/NS) 250 ml @ 250 mls/hr Q24H IVPB Last administered on 09/14/17 15:31; Admin Dose 250 MLS/HR; Start 09/10/17 at 15: 30 Potassium Chloride (Klor-Con 20) 20 meq DAILY PO Last administered on 08:04; Admin Dose 20 MEQ; Start 09/10/17 at 09:00 Bisoprolol Fumarate (Zebeta) 15 mg DAILY PO Last administered on 09/15/17 08: 02; Admin Dose 15 MG; Start 09/11/17 at 09:00 Insulin Glargine (Lantus) 13 unit QHS SC Last administered on 09/14/17 20:56 ; Admin Dose 13 UNIT; Start 09/11/17 at 21:00 Furosemide (Lasix) 40 mg ,,18 IV Last administered on 09/15/17 12:10; Admin Dose 40 MG; Start 09/12/17 at 09:00 Hydralazine HCl (Apresoline) 50 mg TID PO Last administered on 09/15/17t 12:10 ; Admin Dose 50 MG; Start 09/15/17 at 13:00 Assessment/Plan Chief Complaint/Hosp Course SUBJECTIVE: Alert, feels good. No fevers. Vital signs stable. ANTIMICROBIALS: Cancidas PHYSICAL EXAMINATION: GENERAL: This is an obese, well-developed, elderly woman who is in no distress. HEENT: Head atraumatic, normocephalic. Sclerae anicteric. Buccal mucosa dry. NECK: Supple. CHEST: Rise symmetrical. Breath sounds diminished to bases. HEART: S1, S2. ABDOMEN: Soft. Bowel tones present. EXTREMITIES: With resolved erythema and edema of her left lower extremity. ASSESSMENT: 1. Resolving sepsis. 2. Status post acute hypoxemic respiratory failure secondary to fluid overload and bilateral pneumonia. 3. Left lower extremity resolving cellulitis. 4. Status post neutropenia and pancytopenia. 5. Acute on possible chronic kidney disease. PLAN: The patient remains stable, abx dc'd last night, dc Cancidas, continue management per primary team and consultants, oral Nystatin swishes. [facility] staff Problems: CODY VASQUEZ NP Sep 15, 2017 13:10
--- NOTE | 2017-09-15 13:46 | CONS ---
Date/Time of Note Date/Time of Note DATE: 09/15/17 TIME: 13:45 Consult Date/Type/Reason Admit Date/Time Aug 24, 2017 at 19:05 Initial Consult Date 08/31/17 Type of Consultation: Pulmonary Ordering Provider: GIA DUMONT Subjective Improved hypoxemia remains stable. Objective Vital Signs Date Time Temp Pulse Resp B/P Pulse Ox O2 Delivery O2 Flow Rate FiO2 09/15/17 13:41 98.3 79 18 141/65 100 09/15/17 08:59 Nasal Cannula 2.0 09/14/17 16:55 28 Intake and Output 09/14/17 09/14/17 09/15/17 15:00 23:00 07:00 Intake Total 1070 ml 730 ml Output Total 1800 ml 1700 ml Balance -730 ml -970 ml Exam GENERAL: Obese lady comfortable at rest. VITAL SIGNS: per chart NECK: Supple. No JVD or lymphadenopathy. CARDIAC EXAM: S1, S2. No added sounds or murmurs. CHEST: Diminished air entry both lung bases. ABDOMEN: Soft, nontender. No guarding or rebound. EXTREMITIES: No cyanosis, clubbing or edema. NEUROLOGIC: Generalized weakness. No focal deficits. Results/Medications Result Diagram: 09/15/1752809/15/17528 Results 24 hrs Laboratory Tests Test 09/14/17 17:04 09/14/17 20:50 09/15/17 05:29 09/15/17 08:15 Bedside Glucose 208 209 67 L White Blood Count 14.6 H Red Blood Count 2.73 L Hemoglobin 8.0 L Hematocrit 25.1 L Mean Corpuscular Volume 91.9 Mean Corpuscular Hemoglobin 29.3 Mean Corpuscular Hemoglobin Concent 31.9 L Red Cell Distribution Width 18.7 H Platelet Count 456 H Mean Platelet Volume 9.5 Neutrophils % 66.0 Lymphocytes % 12.9 L Monocytes % 17.2 H Eosinophils % 0.4 Basophils % 0.3 Nucleated Red Blood Cells % 0.3 H Neutrophils # 9.6 H Lymphocytes # 1.9 Monocytes # 2.5 H Eosinophils # 0.1 Basophils # 0.0 Nucleated Red Blood Cells # 0.1 H Sodium Level 138 Potassium Level 3.7 Chloride Level 97 Carbon Dioxide Level 32 H Anion Gap 13 Blood Urea Nitrogen 44 H Creatinine 2.27 H Glucose Level 68 L Calcium Level 8.0 L Phosphorus Level 4.1 Magnesium Level 2.0 Albumin 3.0 L Test 09/15/17 08:36 09/15/17 08:57 09/15/17 12:09 Bedside Glucose 103 134 188 Medications Current Medications Ondansetron HCl (Zofran Inj) 4 mg Q6H PRN IV NAUSEA AND/OR VOMITING Last administered on 09/04/17 13:47; Admin Dose 4 MG; Start 08/25/17 at 08:00 Morphine Sulfate (morphine) 2 mg Q4H PRN IV PAIN Last administered on 09/01/17 20:06; Admin Dose 2 MG; Start 08/25/17 at 08:00 Loratadine (Claritin) 10 mg DAILY PO Last administered on 09/15/17 08:03; Admin Dose 10 MG; Start 08/25/17 at 09:00 Losartan Potassium (Cozaar) 50 mg DAILY PO Last administered on 09/15/17 08:03 ; Admin Dose 50 MG; Start 08/25/17 at 09:00 Miscellaneous Information 1 ea NOTE XX ; Start 08/25/17 at 14:00 Glucose (Glutose) 15 gm Q15M PRN PO DECREASED GLUCOSE; Start 08/25/17 at 14:00 Glucose (Glutose) 22.5 gm Q15M PRN PO DECREASED GLUCOSE; Start 08/25/17 at 14: 00 Dextrose (D50w Syringe) 25 ml Q15M PRN IV DECREASED GLUCOSE Last administered on 09/05/17 12:07; Admin Dose 25 ML; Start 08/25/17 at 14:00 Dextrose (D50w Syringe) 50 ml Q15M PRN IV DECREASED GLUCOSE Last administered on 09/03/17 20:53; Admin Dose 50 ML; Start 08/25/17 at 14:00 Glucagon (Glucagen) 1 mg Q15M PRN IM DECREASED GLUCOSE; Start 08/25/17 at 14: 00 Glucose (Glutose) 15 gm Q15M PRN BUCCAL DECREASED GLUCOSE; Start 08/25/17 at 14:00 Acetaminophen (Tylenol Tab) 650 mg Q4H PRN PO PAIN AND OR ELEVATED TEMP Last administered on 08/26/17 17:06; Admin Dose 650 MG; Start 08/25/17 at 20:30 Miscellaneous Medication (Bax Susp) 10 ml TID PO Last administered on 12:10; Admin Dose 10 ML; Start 08/29/17 at 13:00 Morphine Sulfate (morphine) 1 mg Q4H PRN IV LESS THAN 5/10 PAIN Last administered on 09/01/17 13:10; Admin Dose 1 MG; Start 08/30/17 at 20:00 Hydralazine HCl (Apresoline) 10 mg Q6H PRN IV ELEVATED SYSTOLIC BP Last administered on 09/15/17 02:07; Admin Dose 10 MG; Start 09/01/17 at 21:30 Silver Sulfadiazine (Thermazene 1% 400 Gm) 1 applic BID TOP Last administered on 09/15/17 08:04; Admin Dose 1 APPLIC; Start 09/04/17 at 14:00 Hydralazine HCl (Apresoline) 10 mg Q4H PRN IV ELEVATED BLOOD PRESSURE; Start 09/05/17 at 01:00 Heparin Sodium (Porcine) (Heparin (5000 Units/0.5 ml)) 5,000 unit Q8 SC Last administered on 09/15/17 06:35; Admin Dose 5,000 UNIT; Start 09/06/17 at 22:00 Epoetin Kashif (Epogen (Esrd)) 10,000 units TuThSa@17 SC Last administered on 17:02; Admin Dose 10,000 UNITS; Start 09/07/17 at 17:00 Amlodipine Besylate (Norvasc) 10 mg DAILY PO Last administered on 09/15/17 08: 04; Admin Dose 10 MG; Start 09/08/17 at 09:00 Potassium Chloride (Klor-Con 20) 20 meq DAILY PO Last administered on 08:04; Admin Dose 20 MEQ; Start 09/10/17 at 09:00 Bisoprolol Fumarate (Zebeta) 15 mg DAILY PO Last administered on 09/15/17 08: 02; Admin Dose 15 MG; Start 09/11/17 at 09:00 Insulin Glargine (Lantus) 13 unit QHS SC Last administered on 09/14/17 20:56 ; Admin Dose 13 UNIT; Start 09/11/17 at 21:00 Furosemide (Lasix) 40 mg ,,18 IV Last administered on 11/1/17at 12:10; Admin Dose 40 MG; Start 09/12/17 at 09:00 Hydralazine HCl (Apresoline) 50 mg TID PO Last administered on 09/15/17t 12:10 ; Admin Dose 50 MG; Start 09/15/17 at 13:00 Nystatin (Nystatin Susp) 5 ml QID PO ; Start 09/15/17 at 17:00 Assessment/Plan Chief Complaint/Hosp Course IMPRESSION: 1. Hypoxemic respiratory insufficiency in the setting of hypertension, chronic kidney disease and volume overload. 2. Chest x-ray better today. Clinically improved. 3. Persistent infiltrates concerning for inflammatory versus infectious process. Improving leukocytosis. RECOMMENDATIONS: 1. Continue antibiotics, findings noted. 2. renal recommendations. Continue diuresis as tolerated 3. Cardiac recommendations 4. Aspiration precautions 5. Decrease FiO2 as tolerated PT evaluation Discharge to half-way facility. Problems: TANI TOLEDO MD, [facility] Sep 15, 2017 13:46
--- NOTE | 2017-09-15 15:12 | PN ---
Date/Time of Note Date/Time of Note DATE: 09/15/17 TIME: 15:11 Assessment/Plan Lines/Catheters IV Catheter Type (from [facility]): Saline Lock Reina in Place (from [facility]): Yes Assessment/Plan Chief Complaint/Hosp Course 1. Left lower extremity cellulitis and edema with history of diabetes; No weeping/open areas; minimally improved; CT lower extremity: no abscess -IV antibiotics -Elevate above heart level 2. Pancytopenia with history of unknown reason for methotrexate therapy; resolved, now with leukocytosis; s/p PRBC and plt transfusions -per heme 3. Diabetes -Nutrition medication optimization -Encourage weight loss 4. Hypertension -Nutrition medication optimization -Encourage weight loss 5. BK on Chronic kidney disease: -Judicious fluid management -Avoid nephrotoxic agents 6. Abnormal LFTs of unknown etiology may be secondary to fatty liver -Monitor 7. Hypoalbuminemia with hypocalcemia -Nutritional optimization 8. Pulm edema w ?bilat pna -pulm toilet -abx -resp tx -per pulm 9. CHF: -cont diuretic therapy -supportive Thank you. Patient seen and examined in collaboration with Dr. William Russ. Problems: Exam/Review of Systems Vital Signs Vitals Vital Signs Date Time Temp Pulse Resp B/P Pulse Ox O2 Delivery O2 Flow Rate FiO2 09/15/17 13:57 97 2.0 09/15/17 13:57 74 18 Nasal Cannula 09/15/17 13:41 98.3 141/65 09/14/17 16:55 28 Intake and Output 09/14/17 09/14/17 09/15/17 15:00 23:00 07:00 Intake Total 1070 ml 730 ml Output Total 1800 ml 1700 ml Balance -730 ml -970 ml Results Result Diagram: 09/15/17 0529 09/15/17 0529 EDMUND KINCAID NP Sep 15, 2017 15:12
--- NOTE | 2017-09-15 15:12 | PN ---
Date/Time of Note Date/Time of Note DATE: 09/15/17 TIME: 15:11 Assessment/Plan Lines/Catheters IV Catheter Type (from [facility]): Saline Lock Reina in Place (from [facility]): Yes Assessment/Plan Chief Complaint/Hosp Course 1. Left lower extremity cellulitis and edema with history of diabetes; No weeping/open areas; minimally improved; CT lower extremity: no abscess -IV antibiotics -Elevate above heart level 2. Pancytopenia with history of unknown reason for methotrexate therapy; resolved, now with leukocytosis; s/p PRBC and plt transfusions -per heme 3. Diabetes -Nutrition medication optimization -Encourage weight loss 4. Hypertension -Nutrition medication optimization -Encourage weight loss 5. BK on Chronic kidney disease: -Judicious fluid management -Avoid nephrotoxic agents 6. Abnormal LFTs of unknown etiology may be secondary to fatty liver -Monitor 7. Hypoalbuminemia with hypocalcemia -Nutritional optimization 8. Pulm edema w ?bilat pna -pulm toilet -abx -resp tx -per pulm 9. CHF: -cont diuretic therapy -supportive Thank you. Patient seen and examined in collaboration with Dr. William Russ. Problems: Exam/Review of Systems Vital Signs Vitals Vital Signs Date Time Temp Pulse Resp B/P Pulse Ox O2 Delivery O2 Flow Rate FiO2 09/15/17 13:57 97 2.0 09/15/17 13:57 74 18 Nasal Cannula 09/15/17 13:41 98.3 141/65 09/14/17 16:55 28 Intake and Output 09/14/17 09/14/17 09/15/17 15:00 23:00 07:00 Intake Total 1070 ml 730 ml Output Total 1800 ml 1700 ml Balance -730 ml -970 ml Results Result Diagram: 09/15/17 0529 09/15/17 0529 EDMUND KINCAID NP Sep 15, 2017 15:12
--- NOTE | 2017-09-15 15:43 | PN ---
Date/Time of Note Date/Time of Note DATE: 09/15/17 TIME: 15:37 Assessment/Plan Lines/Catheters IV Catheter Type (from [facility]): Saline Lock Reina in Place (from [facility]): Yes Assessment/Plan Chief Complaint/Hosp Course 1. Left lower extremity cellulitis and edema with history of diabetes;CT lower extremity without abscess: much improved -continue supportive measures -elevate above heart level 2. Leukocytosis, without fevers, with history of leukopenia: on prednisone. Improving -abx per ID 3. Diabetes -Nutrition medication optimization -Encourage weight loss 4. Hypertension -Nutrition medication optimization -Encourage weight loss 5. Chronic kidney disease -Judicious fluid management -Avoid nephrotoxic agents 6. Bilateral ground glass changes on CT -s/p abx -pulm toilette 7. Hypoalbuminemia with hypocalcemia -Nutritional optimization 8. Anemia: no acute bleed noted -monitor -transfuse as needed 9. Electrolyte imbalance -optimize lytes 10. Pl Effusion: -diuresis -supportive Thank you. Patient seen and examined in collaboration with Dr. William Russ. Problems: Subjective 24 Hr Interval Summary Sob with exertion. Left leg much improved. No fevers, chills, sob, congested cough, cp, palpitations, walsh, dizziness, n/v/d/dysuria. Exam/Review of Systems Vital Signs Vitals Vital Signs Date Time Temp Pulse Resp B/P Pulse Ox O2 Delivery O2 Flow Rate FiO2 09/15/17 13:57 97 2.0 09/15/17 13:57 74 18 Nasal Cannula 09/15/17 13:41 98.3 141/65 09/14/17 16:55 28 Intake and Output 09/14/17 09/14/17 09/15/17 15:00 23:00 07:00 Intake Total 1070 ml 730 ml Output Total 1800 ml 1700 ml Balance -730 ml -970 ml Exam Free Text/Dictation Constitutional: obese, other (Awake), No distress Psych: nl mood/affect, No anxiety Head: atraumatic, normocephalic Eyes: EOMI, PERRL, nl conjunctiva, No icteric ENMT: mucosa pink and dry, nl external ears & nose, nl lips & teeth Neck: non-tender, supple, No jvd Respiratory: sob w exertion improved, wheezing improved. No congested cough Cardiovascular: edema (Left lower extremity- much improved), regular rate and rhythm Gastrointestinal: non-tender, soft, No rebound or guarding Musculoskeletal: joint tenderness, No nl extremities to inspection Extremities: edema, normal pulses, tenderness, No calf tenderness Neurological: nl mental status, nl strength Skin: rash or lesions (Left lower extremity-discoloration improved, flaky skin) , No diaphoresis, No nl turgor Lymph: nl lymph nodes, nontender Results Result Diagram: 09/15/17 0529 09/15/17 0529 EDMUND KINCAID NP Sep 15, 2017 15:43
[2017-09-15] MEDS: NYSTATIN SUSP 5 ML CUP PO SCH ×2 (17:29→20:43)
--- NOTE | 2017-09-15 18:51 | CONS ---
Date/Time of Note Date/Time of Note DATE: 09/15/17 TIME: 18:49 Assessment/Plan Assessment/Plan Chief Complaint/Hosp Course 1. acute on-chronic kidney disease due to underlying sepsis/meds 2 Underlying acute tubular necrosis,better 3 Likely underlying diabetic nephropathy, underlying hypertensive nephrosclerosis 4 pancytopenia could be due to sepsis, as well as drug-induced mthx/sulpha 5. Hyponatremia. resolved 6. METABOLIC ACIDOSIS BETTER 7 Nephrotic range proteinuria 8 BLE atherosclerosis 9 PNEUMONIA AND PUL EDEMA BETTER PLAN DIURETIC [facility] LABS fluid res Problems: Consultation Date/Type/Reason Admit Date/Time Aug 24, 2017 at 19:05 Initial Consult Date RENAL F/U Referring Provider: GIA DUMONT 24 HR Interval Summary Constitutional: other (sob better,anasarca better) Exam/Review of Systems Vital Signs Vitals Vital Signs Date Time Temp Pulse Resp B/P Pulse Ox O2 Delivery O2 Flow Rate FiO2 09/15/17 16:21 81 20 98 Nasal Cannula 2.0 09/15/17 13:41 98.3 141/65 09/14/17 16:55 28 Intake and Output 09/14/17 09/14/17 09/15/17 15:00 23:00 07:00 Intake Total 1070 ml 730 ml Output Total 1800 ml 1700 ml Balance -730 ml -970 ml Exam Respiratory: diminished breath sounds Cardiovascular: regular rate and rhythm Gastrointestinal: bowel sounds (+), soft Extremities: edema (dec.) Results Result Diagram: 09/15/17 0529 09/15/17 0529 Results 24 hrs Laboratory Tests Test 09/14/17 20:50 09/15/17 05:29 09/15/17 08:15 09/15/17 08:36 Bedside Glucose 209 67 L 103 White Blood Count 14.6 H Red Blood Count 2.73 L Hemoglobin 8.0 L Hematocrit 25.1 L Mean Corpuscular Volume 91.9 Mean Corpuscular Hemoglobin 29.3 Mean Corpuscular Hemoglobin Concent 31.9 L Red Cell Distribution Width 18.7 H Platelet Count 456 H Mean Platelet Volume 9.5 Neutrophils % 66.0 Lymphocytes % 12.9 L Monocytes % 17.2 H Eosinophils % 0.4 Basophils % 0.3 Nucleated Red Blood Cells % 0.3 H Neutrophils # 9.6 H Lymphocytes # 1.9 Monocytes # 2.5 H Eosinophils # 0.1 Basophils # 0.0 Nucleated Red Blood Cells # 0.1 H Sodium Level 138 Potassium Level 3.7 Chloride Level 97 Carbon Dioxide Level 32 H Anion Gap 13 Blood Urea Nitrogen 44 H Creatinine 2.27 H Glucose Level 68 L Calcium Level 8.0 L Phosphorus Level 4.1 Magnesium Level 2.0 Albumin 3.0 L Test 09/15/17 08:57 09/15/17 12:09 09/15/17 17:28 Bedside Glucose 134 188 112 Medications Medications Current Medications Ondansetron HCl (Zofran Inj) 4 mg Q6H PRN IV NAUSEA AND/OR VOMITING Last administered on 09/04/17 13:47; Admin Dose 4 MG; Start 08/25/17 at 08:00 Morphine Sulfate (morphine) 2 mg Q4H PRN IV PAIN Last administered on 09/01/17 20:06; Admin Dose 2 MG; Start 08/25/17 at 08:00 Loratadine (Claritin) 10 mg DAILY PO Last administered on 09/15/17 08:03; Admin Dose 10 MG; Start 08/25/17 at 09:00 Losartan Potassium (Cozaar) 50 mg DAILY PO Last administered on 09/15/17 08:03 ; Admin Dose 50 MG; Start 08/25/17 at 09:00 Miscellaneous Information 1 ea NOTE XX ; Start 08/25/17 at 14:00 Glucose (Glutose) 15 gm Q15M PRN PO DECREASED GLUCOSE; Start 08/25/17 at 14:00 Glucose (Glutose) 22.5 gm Q15M PRN PO DECREASED GLUCOSE; Start 08/25/17 at 14: 00 Dextrose (D50w Syringe) 25 ml Q15M PRN IV DECREASED GLUCOSE Last administered on 09/05/17 12:07; Admin Dose 25 ML; Start 08/25/17 at 14:00 Dextrose (D50w Syringe) 50 ml Q15M PRN IV DECREASED GLUCOSE Last administered on 09/03/17 20:53; Admin Dose 50 ML; Start 08/25/17 at 14:00 Glucagon (Glucagen) 1 mg Q15M PRN IM DECREASED GLUCOSE; Start 08/25/17 at 14: 00 Glucose (Glutose) 15 gm Q15M PRN BUCCAL DECREASED GLUCOSE; Start 08/25/17 at 14:00 Acetaminophen (Tylenol Tab) 650 mg Q4H PRN PO PAIN AND OR ELEVATED TEMP Last administered on 08/26/17 17:06; Admin Dose 650 MG; Start 08/25/17 at 20:30 Miscellaneous Medication (Bax Susp) 10 ml TID PO Last administered on 12:10; Admin Dose 10 ML; Start 08/29/17 at 13:00 Morphine Sulfate (morphine) 1 mg Q4H PRN IV LESS THAN 5/10 PAIN Last administered on 09/01/17 13:10; Admin Dose 1 MG; Start 08/30/17 at 20:00 Hydralazine HCl (Apresoline) 10 mg Q6H PRN IV ELEVATED SYSTOLIC BP Last administered on 09/15/17 02:07; Admin Dose 10 MG; Start 09/01/17 at 21:30 Silver Sulfadiazine (Thermazene 1% 400 Gm) 1 applic BID TOP Last administered on 09/15/17 08:04; Admin Dose 1 APPLIC; Start 09/04/17 at 14:00 Hydralazine HCl (Apresoline) 10 mg Q4H PRN IV ELEVATED BLOOD PRESSURE; Start 09/05/17 at 01:00 Heparin Sodium (Porcine) (Heparin (5000 Units/0.5 ml)) 5,000 unit Q8 SC Last administered on 09/15/17 14:20; Admin Dose 5,000 UNIT; Start 09/06/17 at 22:00 Epoetin Kashif (Epogen (Esrd)) 10,000 units TuThSa@17 SC Last administered on 17:02; Admin Dose 10,000 UNITS; Start 09/07/17 at 17:00 Amlodipine Besylate (Norvasc) 10 mg DAILY PO Last administered on 09/15/17 08: 04; Admin Dose 10 MG; Start 09/08/17 at 09:00 Potassium Chloride (Klor-Con 20) 20 meq DAILY PO Last administered on 08:04; Admin Dose 20 MEQ; Start 09/10/17 at 09:00 Bisoprolol Fumarate (Zebeta) 15 mg DAILY PO Last administered on 09/15/17 08: 02; Admin Dose 15 MG; Start 09/11/17 at 09:00 Insulin Glargine (Lantus) 13 unit QHS SC Last administered on 09/14/17 20:56 ; Admin Dose 13 UNIT; Start 09/11/17 at 21:00 Furosemide (Lasix) 40 mg ,,18 IV Last administered on 09/15/17 17:29; Admin Dose 40 MG; Start 09/12/17 at 09:00 Hydralazine HCl (Apresoline) 50 mg TID PO Last administered on 09/15/17 12:10 ; Admin Dose 50 MG; Start 09/15/17 at 13:00 Nystatin (Nystatin Susp) 5 ml QID PO Last administered on 09/15/17 17:29; Admin Dose 5 ML; Start 09/15/17 at 17:00 Diagnostic Test (Pha) (Accu-Chek) 1 XX ; Start 09/16/17 at 02:00 JENNA PATTEN MD Sep 15, 2017 18:51
[2017-09-15] MEDS: INSULIN GLARGINE [LANtus] 3 ML PEN SC SCH (20:50)
[2017-09-16] VITALS (11 sets, daily range): BP systolic 143–165; BP diastolic 64–74; PULSE 78–89; RESP 18–22
[2017-09-16] MEDS: ALBUTEROL/IPRATROPIUM (NEB) 3 ML AMP HHN SCH ×6 (00:51→20:15)
[2017-09-16] MEDS: ACCU-CHEK XX SCH ×5 (01:22→21:00)
[2017-09-16] MEDS ORDERED: ACCU-CHEK XX SCH (02:00)
[2017-09-16] MEDS: HEPARIN 5,000 UNIT/0.5 ML VIAL SC SCH ×3 (05:49→21:17)
[2017-09-16] MEDS: INSULIN ASPART [NOVOLOG] 3 ML PEN SC SCH ×4 (08:15→21:01)
[2017-09-16] MEDS: FUROSEMIDE 40 MG INJ IV SCH ×3 (09:07→17:44)
[2017-09-16] MEDS: NYSTATIN SUSP 5 ML CUP PO SCH ×4 (09:45→20:58)
[2017-09-16] MEDS: BISOPROLOL 5 MG TAB PO SCH (09:47)
[2017-09-16] MEDS: AMLODIPINE 10 MG TAB PO SCH (09:47)
[2017-09-16] MEDS: LORATADINE 10 MG TAB PO SCH (09:47)
[2017-09-16] MEDS: POTASSIUM CHLORIDE (SR) 20 MEQ TAB PO SCH (09:48)
[2017-09-16] MEDS: LOSARTAN 50 MG TAB PO SCH (10:39)
[2017-09-16] MEDS: SILVER SULFADIAZINE 1% 400 GM CR TOP SCH ×2 (11:07→21:06)
[2017-09-16] MEDS: DIPHENHYD/MYLANTA/LIDO (PO SYG) PO SCH ×3 (11:07→20:58)
--- NOTE | 2017-09-16 11:26 | CONS ---
Date/Time of Note Date/Time of Note DATE: 09/16/17 TIME: 11:25 Consult Date/Type/Reason Admit Date/Time Aug 24, 2017 at 19:05 Initial Consult Date 08/31/17 Type of Consultation: Pulmonary Ordering Provider: GIA DUMONT Subjective Remains comfortable on 2 L nasal cannula. Objective Vital Signs Date Time Temp Pulse Resp B/P Pulse Ox O2 Delivery O2 Flow Rate FiO2 09/16/17 09:07 88 147/66 09/16/17 08:29 2.0 09/16/17 08:27 22 98 Nasal Cannula 09/16/17 07:46 97.3 09/14/17 16:55 28 Intake and Output 09/15/17 09/15/17 09/16/17 15:00 23:00 07:00 Intake Total 840 ml 240 ml Output Total 2000 ml 1700 ml Balance -1160 ml -1460 ml Exam GENERAL: Obese lady comfortable at rest. VITAL SIGNS: per chart NECK: Supple. No JVD or lymphadenopathy. CARDIAC EXAM: S1, S2. No added sounds or murmurs. CHEST: Diminished air entry both lung bases. ABDOMEN: Soft, nontender. No guarding or rebound. EXTREMITIES: No cyanosis, clubbing or edema. NEUROLOGIC: Generalized weakness. No focal deficits. Results/Medications Result Diagram: 09/16/17 0515 09/16/17 0515 Results 24 hrs Laboratory Tests Test 09/15/17 12:09 09/15/17 17:28 09/15/17 20:41 09/16/17 05:15 Bedside Glucose 188 112 173 White Blood Count 13.2 H Red Blood Count 2.71 L Hemoglobin 8.0 L Hematocrit 25.2 L Mean Corpuscular Volume 93.0 Mean Corpuscular Hemoglobin 29.5 Mean Corpuscular Hemoglobin Concent 31.7 L Red Cell Distribution Width 18.4 H Platelet Count 448 H Mean Platelet Volume 9.3 Neutrophils % 65.6 Lymphocytes % 12.8 L Monocytes % 18.9 H Eosinophils % 0.4 Basophils % 0.3 Nucleated Red Blood Cells % 0.0 Neutrophils # 8.6 H Lymphocytes # 1.7 Monocytes # 2.5 H Eosinophils # 0.1 Basophils # 0.0 Nucleated Red Blood Cells # 0.0 Absolute Reticulocyte Count 0.208 H Percent Reticulocyte Count 7.7 H Sodium Level 136 Potassium Level 3.7 Chloride Level 94 L Carbon Dioxide Level 33 H Anion Gap 13 Blood Urea Nitrogen 44 H Creatinine 2.44 H Glucose Level 94 Calcium Level 8.2 L Phosphorus Level 4.6 Magnesium Level 1.9 Albumin 2.8 L Test 09/16/17 08:14 Bedside Glucose 82 Medications Current Medications Ondansetron HCl (Zofran Inj) 4 mg Q6H PRN IV NAUSEA AND/OR VOMITING Last administered on 09/04/17 13:47; Admin Dose 4 MG; Start 08/25/17 at 08:00 Morphine Sulfate (morphine) 2 mg Q4H PRN IV PAIN Last administered on 09/01/17 20:06; Admin Dose 2 MG; Start 08/25/17 at 08:00 Loratadine (Claritin) 10 mg DAILY PO Last administered on 09/16/17 09:47; Admin Dose 10 MG; Start 08/25/17 at 09:00 Losartan Potassium (Cozaar) 50 mg DAILY PO Last administered on 09/16/17 10:39 ; Admin Dose 50 MG; Start 08/25/17 at 09:00 Miscellaneous Information 1 ea NOTE XX ; Start 08/25/17 at 14:00 Glucose (Glutose) 15 gm Q15M PRN PO DECREASED GLUCOSE; Start 08/25/17 at 14:00 Glucose (Glutose) 22.5 gm Q15M PRN PO DECREASED GLUCOSE; Start 08/25/17 at 14: 00 Dextrose (D50w Syringe) 25 ml Q15M PRN IV DECREASED GLUCOSE Last administered on 09/05/17 12:07; Admin Dose 25 ML; Start 08/25/17 at 14:00 Dextrose (D50w Syringe) 50 ml Q15M PRN IV DECREASED GLUCOSE Last administered on 09/03/17 20:53; Admin Dose 50 ML; Start 08/25/17 at 14:00 Glucagon (Glucagen) 1 mg Q15M PRN IM DECREASED GLUCOSE; Start 08/25/17 at 14: 00 Glucose (Glutose) 15 gm Q15M PRN BUCCAL DECREASED GLUCOSE; Start 08/25/17 at 14:00 Acetaminophen (Tylenol Tab) 650 mg Q4H PRN PO PAIN AND OR ELEVATED TEMP Last administered on 08/26/17 17:06; Admin Dose 650 MG; Start 08/25/17 at 20:30 Miscellaneous Medication (Bax Susp) 10 ml TID PO Last administered on 11:07; Admin Dose 10 ML; Start 08/29/17 at 13:00 Morphine Sulfate (morphine) 1 mg Q4H PRN IV LESS THAN 5/10 PAIN Last administered on 09/01/17 13:10; Admin Dose 1 MG; Start 08/30/17 at 20:00 Hydralazine HCl (Apresoline) 10 mg Q6H PRN IV ELEVATED SYSTOLIC BP Last administered on 09/15/17 02:07; Admin Dose 10 MG; Start 09/01/17 at 21:30 Silver Sulfadiazine (Thermazene 1% 400 Gm) 1 applic BID TOP Last administered on 09/16/17 11:07; Admin Dose 1 APPLIC; Start 09/04/17 at 14:00 Hydralazine HCl (Apresoline) 10 mg Q4H PRN IV ELEVATED BLOOD PRESSURE Last administered on 09/16/17 02:33; Admin Dose 10 MG; Start 09/05/17 at 01:00 Heparin Sodium (Porcine) (Heparin (5000 Units/0.5 ml)) 5,000 unit Q8 SC Last administered on 09/16/17 05:49; Admin Dose 5,000 UNIT; Start 09/06/17 at 22:00 Epoetin Kashif (Epogen (Esrd)) 10,000 units TuThSa@17 SC Last administered on 17:02; Admin Dose 10,000 UNITS; Start 09/07/17 at 17:00 Amlodipine Besylate (Norvasc) 10 mg DAILY PO Last administered on 09/16/17 09: 47; Admin Dose 10 MG; Start 09/08/17 at 09:00 Potassium Chloride (Klor-Con 20) 20 meq DAILY PO Last administered on 09:48; Admin Dose 20 MEQ; Start 09/10/17 at 09:00 Bisoprolol Fumarate (Zebeta) 15 mg DAILY PO Last administered on 09/16/17 09: 47; Admin Dose 15 MG; Start 09/11/17 at 09:00 Insulin Glargine (Lantus) 13 unit QHS SC Last administered on 09/15/17 20:50; Admin Dose 13 UNIT; Start 09/11/17 at 21:00 Furosemide (Lasix) 40 mg 09,,18 IV Last administered on 09/16/17 09:07; Admin Dose 40 MG; Start 09/12/17 at 09:00 Hydralazine HCl (Apresoline) 50 mg TID PO Last administered on 09/16/17 10:39 ; Admin Dose 50 MG; Start 09/15/17 at 13:00 Nystatin (Nystatin Susp) 5 ml QID PO Last administered on 09/16/17 09:45; Admin Dose 5 ML; Start 09/15/17 at 17:00 Diagnostic Test (Pha) (Accu-Chek) 1 02 XX ; Start 09/16/17 at 02:00 Assessment/Plan Chief Complaint/Hosp Course IMPRESSION: 1. Hypoxemic respiratory insufficiency in the setting of hypertension, chronic kidney disease and volume overload. 2. Chest x-ray better today. Clinically improved. 3. Persistent infiltrates concerning for inflammatory versus infectious process. Persistent low-grade leukocytosis RECOMMENDATIONS: 1. Continue antibiotics, findings noted. 2. renal recommendations. Continue diuresis as tolerated 3. Cardiac recommendations 4. Aspiration precautions 5. Decrease FiO2 as tolerated PT evaluation Discharge to [facility]. Problems: TANI TOLEDO MD, [facility] Sep 16, 2017 11:26
--- NOTE | 2017-09-16 13:36 | PN ---
Date/Time of Note Date/Time of Note DATE: 09/16/17 TIME: 13:34 Assessment/Plan Lines/Catheters IV Catheter Type (from [facility]): Saline Lock Reina in Place (from [facility]): Yes (450ml at 1045am) Assessment/Plan Chief Complaint/Hosp Course 1. Left lower extremity cellulitis and edema with history of diabetes;CT lower extremity without abscess: much improved -continue supportive measures -elevate above heart level 2. Leukocytosis, without fevers, with history of leukopenia: on prednisone. Cont to improve -abx per ID 3. Diabetes -Nutrition medication optimization -Encourage weight loss 4. Hypertension -Nutrition medication optimization -Encourage weight loss 5. Chronic kidney disease: Cr up (likely 2/2 diuresis) -Judicious fluid management -Avoid nephrotoxic agents 6. Bilateral ground glass changes on CT -s/p abx -pulm toilette 7. Hypoalbuminemia with hypocalcemia -Nutritional optimization 8. Anemia: no acute bleed noted -monitor -transfuse as needed 9. Electrolyte imbalance -optimize lytes 10. Pl Effusion: -diuresis -supportive Thank you. Patient seen and examined in collaboration with Dr. William Russ. Problems: Subjective 24 Hr Interval Summary Leukocytosis improving. Cr up. Feeling much better. Left leg much improved. No fevers, chills, sob, congested cough, cp, palpitations, walsh, dizziness, n/v/d/ dysuria. Exam/Review of Systems Vital Signs Vitals Vital Signs Date Time Temp Pulse Resp B/P Pulse Ox O2 Delivery O2 Flow Rate FiO2 09/16/17 13:06 80 20 98 Nasal Cannula 2.0 09/16/17 12:49 97.3 145/65 09/14/17 16:55 28 Intake and Output 09/15/17 09/15/17 09/16/17 15:00 23:00 07:00 Intake Total 840 ml 240 ml Output Total 2000 ml 1700 ml Balance -1160 ml -1460 ml Exam Free Text/Dictation Constitutional: obese, other (Awake), No distress Psych: nl mood/affect, No anxiety Head: atraumatic, normocephalic Eyes: EOMI, PERRL, nl conjunctiva, No icteric ENMT: mucosa pink and dry, nl external ears & nose, nl lips & teeth Neck: non-tender, supple, No jvd Respiratory: sob w exertion improved, wheezing improved. No congested cough Cardiovascular: no edema, regular rate and rhythm Gastrointestinal: non-tender, soft, No rebound or guarding Musculoskeletal: joint tenderness, No nl extremities to inspection Extremities: edema, normal pulses, tenderness, No calf tenderness Neurological: nl mental status, nl strength Skin: rash or lesions (Left lower extremity-discoloration improved, flaky skin) , No diaphoresis, No nl turgor Lymph: nl lymph nodes, nontender Results Result Diagram: 09/16/17 0515 09/16/17 0515 EDMUND KINCAID NP Sep 16, 2017 13:36
--- NOTE | 2017-09-16 13:57 | CONS ---
Date/Time of Note Date/Time of Note DATE: 09/16/17 TIME: 13:56 Consult Date/Type/Reason Admit Date/Time Aug 24, 2017 at 19:05 Initial Consult Date 08/29/17 Type of Consultation: ID Ordering Provider: GIA DUMONT Objective Vital Signs Date Time Temp Pulse Resp B/P Pulse Ox O2 Delivery O2 Flow Rate FiO2 09/16/17 13:06 80 20 98 Nasal Cannula 2.0 09/16/17 12:49 97.3 145/65 09/14/17 16:55 28 Intake and Output 09/15/17 09/15/17 09/16/17 15:00 23:00 07:00 Intake Total 840 ml 240 ml Output Total 2000 ml 1700 ml Balance -1160 ml -1460 ml Results/Medications Result Diagram: 09/16/17 0515 09/16/17 0515 Results 24 hrs Laboratory Tests Test 09/15/17 17:28 09/15/17 20:41 09/16/17 05:15 09/16/17 08:14 Bedside Glucose 112 173 82 White Blood Count 13.2 H Red Blood Count 2.71 L Hemoglobin 8.0 L Hematocrit 25.2 L Mean Corpuscular Volume 93.0 Mean Corpuscular Hemoglobin 29.5 Mean Corpuscular Hemoglobin Concent 31.7 L Red Cell Distribution Width 18.4 H Platelet Count 448 H Mean Platelet Volume 9.3 Neutrophils % 65.6 Lymphocytes % 12.8 L Monocytes % 18.9 H Eosinophils % 0.4 Basophils % 0.3 Nucleated Red Blood Cells % 0.0 Neutrophils # 8.6 H Lymphocytes # 1.7 Monocytes # 2.5 H Eosinophils # 0.1 Basophils # 0.0 Nucleated Red Blood Cells # 0.0 Absolute Reticulocyte Count 0.208 H Percent Reticulocyte Count 7.7 H Sodium Level 136 Potassium Level 3.7 Chloride Level 94 L Carbon Dioxide Level 33 H Anion Gap 13 Blood Urea Nitrogen 44 H Creatinine 2.44 H Glucose Level 94 Calcium Level 8.2 L Phosphorus Level 4.6 Magnesium Level 1.9 Albumin 2.8 L Test 09/16/17 12:11 09/16/17 12:23 Bedside Glucose 259 H Lab Scanned Report REFERENCE LAB Medications Current Medications Ondansetron HCl (Zofran Inj) 4 mg Q6H PRN IV NAUSEA AND/OR VOMITING Last administered on 09/04/17 13:47; Admin Dose 4 MG; Start 08/25/17 at 08:00 Morphine Sulfate (morphine) 2 mg Q4H PRN IV 5-1010 PAIN Last administered on 09/01/17 20:06; Admin Dose 2 MG; Start 08/25/17 at 08:00 Loratadine (Claritin) 10 mg DAILY PO Last administered on 09/16/17 09:47; Admin Dose 10 MG; Start 08/25/17 at 09:00 Losartan Potassium (Cozaar) 50 mg DAILY PO Last administered on 09/16/17 10:39 ; Admin Dose 50 MG; Start 08/25/17 at 09:00 Miscellaneous Information 1 ea NOTE XX ; Start 08/25/17 at 14:00 Glucose (Glutose) 15 gm Q15M PRN PO DECREASED GLUCOSE; Start 08/25/17 at 14:00 Glucose (Glutose) 22.5 gm Q15M PRN PO DECREASED GLUCOSE; Start 08/25/17 at 14: 00 Dextrose (D50w Syringe) 25 ml Q15M PRN IV DECREASED GLUCOSE Last administered on 09/05/17 12:07; Admin Dose 25 ML; Start 08/25/17 at 14:00 Dextrose (D50w Syringe) 50 ml Q15M PRN IV DECREASED GLUCOSE Last administered on 09/03/17 20:53; Admin Dose 50 ML; Start 08/25/17 at 14:00 Glucagon (Glucagen) 1 mg Q15M PRN IM DECREASED GLUCOSE; Start 08/25/17 at 14: 00 Glucose (Glutose) 15 gm Q15M PRN BUCCAL DECREASED GLUCOSE; Start 08/25/17 at 14:00 Acetaminophen (Tylenol Tab) 650 mg Q4H PRN PO PAIN AND OR ELEVATED TEMP Last administered on 08/26/17 17:06; Admin Dose 650 MG; Start 08/25/17 at 20:30 Miscellaneous Medication (Bax Susp) 10 ml TID PO Last administered on 12:16; Admin Dose 10 ML; Start 08/29/17 at 13:00 Morphine Sulfate (morphine) 1 mg Q4H PRN IV LESS THAN 5/10 PAIN Last administered on 09/01/17 13:10; Admin Dose 1 MG; Start 08/30/17 at 20:00 Hydralazine HCl (Apresoline) 10 mg Q6H PRN IV ELEVATED SYSTOLIC BP Last administered on 09/15/17 02:07; Admin Dose 10 MG; Start 09/01/17 at 21:30 Silver Sulfadiazine (Thermazene 1% 400 Gm) 1 applic BID TOP Last administered on 09/16/17 11:07; Admin Dose 1 APPLIC; Start 09/04/17 at 14:00 Hydralazine HCl (Apresoline) 10 mg Q4H PRN IV ELEVATED BLOOD PRESSURE Last administered on 09/16/17 02:33; Admin Dose 10 MG; Start 09/05/17 at 01:00 Heparin Sodium (Porcine) (Heparin (5000 Units/0.5 ml)) 5,000 unit Q8 SC Last administered on 09/16/17 05:49; Admin Dose 5,000 UNIT; Start 09/06/17 at 22:00 Epoetin Kashif (Epogen (Esrd)) 10,000 units TuThSa@17 SC Last administered on 17:02; Admin Dose 10,000 UNITS; Start 09/07/17 at 17:00 Amlodipine Besylate (Norvasc) 10 mg DAILY PO Last administered on 09/16/17 09: 47; Admin Dose 10 MG; Start 09/08/17 at 09:00 Potassium Chloride (Klor-Con 20) 20 meq DAILY PO Last administered on 09:48; Admin Dose 20 MEQ; Start 09/10/17 at 09:00 Bisoprolol Fumarate (Zebeta) 15 mg DAILY PO Last administered on 09/16/17 09: 47; Admin Dose 15 MG; Start 09/11/17 at 09:00 Insulin Glargine (Lantus) 13 unit QHS SC Last administered on 09/15/17 20:50; Admin Dose 13 UNIT; Start 09/11/17 at 21:00 Furosemide (Lasix) 40 mg ,,18 IV Last administered on 09/16/17 12:17; Admin Dose 40 MG; Start 09/12/17 at 09:00 Hydralazine HCl (Apresoline) 50 mg TID PO Last administered on 09/16/17 12:16 ; Admin Dose 50 MG; Start 09/15/17 at 13:00 Nystatin (Nystatin Susp) 5 ml QID PO Last administered on 09/16/17t 12:16; Admin Dose 5 ML; Start 09/15/17 at 17:00 Diagnostic Test (Pha) (Accu-Chek) 1 02 XX ; Start 09/16/17 at 02:00 Assessment/Plan Chief Complaint/Hosp Course SUBJECTIVE: Alert, feels good. No fevers. Vital signs stable. ANTIMICROBIALS: [place] PHYSICAL EXAMINATION: GENERAL: This is an obese, well-developed, elderly woman who is in no distress. HEENT: Head atraumatic, normocephalic. Sclerae anicteric. Buccal mucosa dry. NECK: Supple. CHEST: Rise symmetrical. Breath sounds diminished to bases. HEART: S1, S2. ABDOMEN: Soft. Bowel tones present. EXTREMITIES: With resolved erythema and edema of her left lower extremity. ASSESSMENT: 1. Resolving sepsis. 2. Status post acute hypoxemic respiratory failure secondary to fluid overload and bilateral pneumonia. 3. Left lower extremity resolving cellulitis. 4. Status post neutropenia and pancytopenia. 5. Acute on possible chronic kidney disease. PLAN: The patient remains stable, off abx, continue management per primary team and consultants, oral Nystatin swishes, repeat cx's prn. [facility] staff Problems: CODY VASQUEZ NP Sep 16, 2017 13:57
--- NOTE | 2017-09-16 14:35 | PN ---
Date/Time of Note Date/Time of Note DATE: 09/16/17 TIME: 14:32 Assessment/Plan VTE Prophylaxis VTE Prophylaxis Intervention: ambulation Lines/Catheters IV Catheter Type (from Nrs): Saline Lock Urinary Cath still in place: Yes (450ml at 1045am) Reason Cath still needed: other (indicate) (per primary MD) Assessment/Plan Chief Complaint/Hosp Course 61 yo woman admitted for cellulitis of lower left leg. History of diabetes, hypertension, obesity, azotemia, abnormal liver studies and methotrexate administration for unclear diagnosis ( leg pain). Leucopenia has resolved and the leucocytosis due to Neupogen is almost all gone. Anemia still noted. No new hematologic interventions. Encourage nutrition and ambulation. Would not resume methotrexate. Problems: Subjective 24 Hr Interval Summary Free Text/Dictation stable. alert and sitting at beside Exam/Review of Systems Vital Signs Vitals Vital Signs Date Time Temp Pulse Resp B/P Pulse Ox O2 Delivery O2 Flow Rate FiO2 09/16/17 13:06 80 20 98 Nasal Cannula 2.0 09/16/17 12:49 97.3 145/65 09/14/17 16:55 28 Intake and Output 09/15/17 09/15/17 09/16/17 15:00 23:00 07:00 Intake Total 840 ml 240 ml Output Total 2000 ml 1700 ml Balance -1160 ml -1460 ml Exam Constitutional: alert Head: normocephalic Eyes: other (pallor) Neck: supple Respiratory: clear to auscultation Cardiovascular: regular rate and rhythm Extremities: other (resolving cellulitis) Results Result Diagram: 09/16/17 0515 09/16/17 0515 Results 24 hrs Laboratory Tests Test 09/15/17 17:28 09/15/17 20:41 09/16/17 05:15 09/16/17 08:14 Bedside Glucose 112 173 82 White Blood Count 13.2 H Red Blood Count 2.71 L Hemoglobin 8.0 L Hematocrit 25.2 L Mean Corpuscular Volume 93.0 Mean Corpuscular Hemoglobin 29.5 Mean Corpuscular Hemoglobin Concent 31.7 L Red Cell Distribution Width 18.4 H Platelet Count 448 H Mean Platelet Volume 9.3 Neutrophils % 65.6 Lymphocytes % 12.8 L Monocytes % 18.9 H Eosinophils % 0.4 Basophils % 0.3 Nucleated Red Blood Cells % 0.0 Neutrophils # 8.6 H Lymphocytes # 1.7 Monocytes # 2.5 H Eosinophils # 0.1 Basophils # 0.0 Nucleated Red Blood Cells # 0.0 Absolute Reticulocyte Count 0.208 H Percent Reticulocyte Count 7.7 H Sodium Level 136 Potassium Level 3.7 Chloride Level 94 L Carbon Dioxide Level 33 H Anion Gap 13 Blood Urea Nitrogen 44 H Creatinine 2.44 H Glucose Level 94 Calcium Level 8.2 L Phosphorus Level 4.6 Magnesium Level 1.9 Albumin 2.8 L Test 09/16/17 12:11 09/16/17 12:23 Bedside Glucose 259 H Lab Scanned Report REFERENCE LAB Medications Medications Current Medications Ondansetron HCl (Zofran Inj) 4 mg Q6H PRN IV NAUSEA AND/OR VOMITING Last administered on 09/04/17 13:47; Admin Dose 4 MG; Start 08/25/17 at 08:00 Morphine Sulfate (morphine) 2 mg Q4H PRN IV PAIN Last administered on 09/01/17 20:06; Admin Dose 2 MG; Start 08/25/17 at 08:00 Loratadine (Claritin) 10 mg DAILY PO Last administered on 09/16/17 09:47; Admin Dose 10 MG; Start 08/25/17 at 09:00 Losartan Potassium (Cozaar) 50 mg DAILY PO Last administered on 09/16/17 10:39 ; Admin Dose 50 MG; Start 08/25/17 at 09:00 Miscellaneous Information 1 ea NOTE XX ; Start 08/25/17 at 14:00 Glucose (Glutose) 15 gm Q15M PRN PO DECREASED GLUCOSE; Start 08/25/17 at 14:00 Glucose (Glutose) 22.5 gm Q15M PRN PO DECREASED GLUCOSE; Start 08/25/17 at 14: 00 Dextrose (D50w Syringe) 25 ml Q15M PRN IV DECREASED GLUCOSE Last administered on 09/05/17 12:07; Admin Dose 25 ML; Start 08/25/17 at 14:00 Dextrose (D50w Syringe) 50 ml Q15M PRN IV DECREASED GLUCOSE Last administered on 09/03/17 20:53; Admin Dose 50 ML; Start 08/25/17 at 14:00 Glucagon (Glucagen) 1 mg Q15M PRN IM DECREASED GLUCOSE; Start 08/25/17 at 14: 00 Glucose (Glutose) 15 gm Q15M PRN BUCCAL DECREASED GLUCOSE; Start 08/25/17 at 14:00 Acetaminophen (Tylenol Tab) 650 mg Q4H PRN PO PAIN AND OR ELEVATED TEMP Last administered on 08/26/17 17:06; Admin Dose 650 MG; Start 08/25/17 at 20:30 Miscellaneous Medication (Bax Susp) 10 ml TID PO Last administered on 12:16; Admin Dose 10 ML; Start 08/29/17 at 13:00 Morphine Sulfate (morphine) 1 mg Q4H PRN IV LESS THAN 5/10 PAIN Last administered on 09/01/17 13:10; Admin Dose 1 MG; Start 08/30/17 at 20:00 Hydralazine HCl (Apresoline) 10 mg Q6H PRN IV ELEVATED SYSTOLIC BP Last administered on 09/15/17 02:07; Admin Dose 10 MG; Start 09/01/17 at 21:30 Silver Sulfadiazine (Thermazene 1% 400 Gm) 1 applic BID TOP Last administered on 09/16/17 11:07; Admin Dose 1 APPLIC; Start 09/04/17 at 14:00 Hydralazine HCl (Apresoline) 10 mg Q4H PRN IV ELEVATED BLOOD PRESSURE Last administered on 09/16/17 02:33; Admin Dose 10 MG; Start 09/05/17 at 01:00 Heparin Sodium (Porcine) (Heparin (5000 Units/0.5 ml)) 5,000 unit Q8 SC Last administered on 09/16/17 05:49; Admin Dose 5,000 UNIT; Start 09/06/17 at 22:00 Epoetin Kashif (Epogen (Esrd)) 10,000 units TuThSa@17 SC Last administered on 17:02; Admin Dose 10,000 UNITS; Start 09/07/17 at 17:00 Amlodipine Besylate (Norvasc) 10 mg DAILY PO Last administered on 09/16/17 09: 47; Admin Dose 10 MG; Start 09/08/17 at 09:00 Potassium Chloride (Klor-Con 20) 20 meq DAILY PO Last administered on 09:48; Admin Dose 20 MEQ; Start 09/10/17 at 09:00 Bisoprolol Fumarate (Zebeta) 15 mg DAILY PO Last administered on 09/16/17 09: 47; Admin Dose 15 MG; Start 09/11/17 at 09:00 Insulin Glargine (Lantus) 13 unit QHS SC Last administered on 09/15/17 20:50; Admin Dose 13 UNIT; Start 09/11/17 at 21:00 Furosemide (Lasix) 40 mg ,,18 IV Last administered on 09/16/17 12:17; Admin Dose 40 MG; Start 09/12/17 at 09:00 Hydralazine HCl (Apresoline) 50 mg TID PO Last administered on 09/16/17 12:16 ; Admin Dose 50 MG; Start 09/15/17 at 13:00 Nystatin (Nystatin Susp) 5 ml QID PO Last administered on 09/16/17 12:16; Admin Dose 5 ML; Start 09/15/17 at 17:00 Diagnostic Test (Pha) (Accu-Chek) 1 ea 02 XX ; Start 09/16/17 at 02:00 SARY DUQUE MD Sep 16, 2017 14:35
--- NOTE | 2017-09-16 15:34 | PN ---
Date/Time of Note Date/Time of Note DATE: 09/16/17 TIME: 15:30 Assessment/Plan VTE Prophylaxis VTE Prophylaxis Intervention: contraindicated Lines/Catheters IV Catheter Type (from Nrsg): Saline Lock Urinary Cath still in place: Yes (450ml at 1045am) Reason Cath still needed: skin wounds contaminated by urine Assessment/Plan Assessment/Plan 1. Acute respiratory distress secondary to Bilateral Pneumonia- improving - Patient found to have b/l PNA on initial chest xray - Doing well on 2L NC and saturating >90%. Will continue to wean off supplemental O2 - Completed course of antibiotics - Pulmonology consultation placed and appreciated recommendations - On Neb treatments - Completed course of steroids - Continue on Lasix 2. HTN - Bp more controlled after hydralazine increase - Continue monitoring and adjust as needed 3. Pulmonary edema- improving - Cardiology on board and recommendations appreciated - On Lasix which has been effective - Repeat CXR shows improvement with small b/l effusions 4. Acute on chronic diastolic congestive heart failure - continue lasix - Cardiology on board and recommendations appreciated - ECHO results noted 5. Left lower extremity cellulitis- resolving - ID and Surgery on board. Recommendations appreciated - Antibiotic per ID - CT LE showed cellulitis and no evidence of osteomyelitis. Xray LE also performed and no osteomyelitis appreciated. -gen surg/vascular surg do not feel any acute intervention is needed 6. Mucositis 2/2 methotrexate use- improved - diphen/lido/mal oral solution ordered. Morphine if pain remain intolerable for PO intake - Tolerating soft mech diet 7. Pancytopenia- improved - now leukocytosis, possible due to filgrastim per heme/onc - Hgb still low. 8.0, but no need for transfusions at this time. Will transfuse if <7 - Hematology on board and recommendations appreciated. - s/p multiple blood transfusions and plt transfusions. - Plts elevated and may be reactive 8. Leukocytosis- trending down - Continue to monitor. May be secondary to Neupogen 9. Neutropenia- resolved - WBC downtrending now <15 and Neupogen no longer on board - Will continue to monitor - Heme on board and recommendations appreciated 10. BK vs BK on CKD - Nephrology on board and recommendations appreciated. Will discuss changing Lasix to PO - Cr continues to improve since admission, likely chronic component - Monitor UOP - HIV negative, KASSY negative 11. Hypokalemia - K 3.7, resolved 12. Eosinophilia - normalized after d/c sulfasalazine and mtx 13. Vascular insufficiency - Vascular surgery on board and recommendations appreciated. No current vascular intervention as the patient has not developed any gangrene or ulcers - Will need to follow up as outpatient due to LE atherosclerosis 14. Disposition - awaiting SNF placement Subjective 24 Hr Interval Summary Free Text/Dictation Patient resting comfortably. No acute distress and no new complaints. No acute overnight events. Exam/Review of Systems Vital Signs Vitals Vital Signs Date Time Temp Pulse Resp B/P Pulse Ox O2 Delivery O2 Flow Rate FiO2 09/16/17 14:43 99.3 81 22 146/66 98 09/16/17 13:06 Nasal Cannula 2.0 09/14/17 16:55 28 Intake and Output 09/15/17 09/15/17 09/16/17 15:00 23:00 07:00 Intake Total 840 ml 240 ml Output Total 2000 ml 1700 ml Balance -1160 ml -1460 ml Exam General: Patient is resting comfortably and in NAD Head: Normocephalic atraumatic Eyes: EOMI, pupils reactive to light Neck: Supple, nontender, midline Respiratory: crackles bases, diminished breath sounds, no wheezing Cardiovascular: regular rate, no obvious murmurs Gastrointestinal: non-tender to palpation, bowel sounds heard. soft, nondistended Neurological: Moves all extremities spontaneously Skin: improvement in discoloration LLE, dryness of skin but less erythema. no tenderness Results Result Diagram: 09/16/17 0515 09/16/17 0515 Results 24 hrs Laboratory Tests Test 09/15/17 17:28 09/15/17 20:41 09/16/17 05:15 09/16/17 08:14 Bedside Glucose 112 173 82 White Blood Count 13.2 H Red Blood Count 2.71 L Hemoglobin 8.0 L Hematocrit 25.2 L Mean Corpuscular Volume 93.0 Mean Corpuscular Hemoglobin 29.5 Mean Corpuscular Hemoglobin Concent 31.7 L Red Cell Distribution Width 18.4 H Platelet Count 448 H Mean Platelet Volume 9.3 Neutrophils % 65.6 Lymphocytes % 12.8 L Monocytes % 18.9 H Eosinophils % 0.4 Basophils % 0.3 Nucleated Red Blood Cells % 0.0 Neutrophils # 8.6 H Lymphocytes # 1.7 Monocytes # 2.5 H Eosinophils # 0.1 Basophils # 0.0 Nucleated Red Blood Cells # 0.0 Absolute Reticulocyte Count 0.208 H Percent Reticulocyte Count 7.7 H Sodium Level 136 Potassium Level 3.7 Chloride Level 94 L Carbon Dioxide Level 33 H Anion Gap 13 Blood Urea Nitrogen 44 H Creatinine 2.44 H Glucose Level 94 Calcium Level 8.2 L Phosphorus Level 4.6 Magnesium Level 1.9 Albumin 2.8 L Test 09/16/17 12:11 09/16/17 12:23 Bedside Glucose 259 H Lab Scanned Report REFERENCE LAB Medications Medications Current Medications Ondansetron HCl (Zofran Inj) 4 mg Q6H PRN IV NAUSEA AND/OR VOMITING Last administered on 09/04/17 13:47; Admin Dose 4 MG; Start 08/25/17 at 08:00 Morphine Sulfate (morphine) 2 mg Q4H PRN IV 5 PAIN Last administered on 09/01/17 20:06; Admin Dose 2 MG; Start 08/25/17 at 08:00 Loratadine (Claritin) 10 mg DAILY PO Last administered on 09/16/17 09:47; Admin Dose 10 MG; Start 08/25/17 at 09:00 Losartan Potassium (Cozaar) 50 mg DAILY PO Last administered on 09/16/17 10:39 ; Admin Dose 50 MG; Start 08/25/17 at 09:00 Miscellaneous Information 1 ea NOTE XX ; Start 08/25/17 at 14:00 Glucose (Glutose) 15 gm Q15M PRN PO DECREASED GLUCOSE; Start 08/25/17 at 14:00 Glucose (Glutose) 22.5 gm Q15M PRN PO DECREASED GLUCOSE; Start 08/25/17 at 14: 00 Dextrose (D50w Syringe) 25 ml Q15M PRN IV DECREASED GLUCOSE Last administered on 09/05/17 12:07; Admin Dose 25 ML; Start 08/25/17 at 14:00 Dextrose (D50w Syringe) 50 ml Q15M PRN IV DECREASED GLUCOSE Last administered on 09/03/17 20:53; Admin Dose 50 ML; Start 08/25/17 at 14:00 Glucagon (Glucagen) 1 mg Q15M PRN IM DECREASED GLUCOSE; Start 08/25/17 at 14: 00 Glucose (Glutose) 15 gm Q15M PRN BUCCAL DECREASED GLUCOSE; Start 08/25/17 at 14:00 Acetaminophen (Tylenol Tab) 650 mg Q4H PRN PO PAIN AND OR ELEVATED TEMP Last administered on 08/26/17 17:06; Admin Dose 650 MG; Start 08/25/17 at 20:30 Miscellaneous Medication (Bax Susp) 10 ml TID PO Last administered on 12:16; Admin Dose 10 ML; Start 08/29/17 at 13:00 Morphine Sulfate (morphine) 1 mg Q4H PRN IV LESS THAN 5/10 PAIN Last administered on 09/01/17 13:10; Admin Dose 1 MG; Start 08/30/17 at 20:00 Hydralazine HCl (Apresoline) 10 mg Q6H PRN IV ELEVATED SYSTOLIC BP Last administered on 09/15/17 02:07; Admin Dose 10 MG; Start 09/01/17 at 21:30 Silver Sulfadiazine (Thermazene 1% 400 Gm) 1 applic BID TOP Last administered on 09/16/17 11:07; Admin Dose 1 APPLIC; Start 09/04/17 at 14:00 Hydralazine HCl (Apresoline) 10 mg Q4H PRN IV ELEVATED BLOOD PRESSURE Last administered on 09/16/17 02:33; Admin Dose 10 MG; Start 09/05/17 at 01:00 Heparin Sodium (Porcine) (Heparin (5000 Units/0.5 ml)) 5,000 unit Q8 SC Last administered on 09/16/17 14:56; Admin Dose 5,000 UNIT; Start 09/06/17 at 22:00 Epoetin Kashif (Epogen (Esrd)) 10,000 units TuThSa@17 SC Last administered on 17:02; Admin Dose 10,000 UNITS; Start 09/07/17 at 17:00 Amlodipine Besylate (Norvasc) 10 mg DAILY PO Last administered on 09/16/17 09: 47; Admin Dose 10 MG; Start 09/08/17 at 09:00 Potassium Chloride (Klor-Con 20) 20 meq DAILY PO Last administered on 09:48; Admin Dose 20 MEQ; Start 09/10/17 at 09:00 Bisoprolol Fumarate (Zebeta) 15 mg DAILY PO Last administered on 09/16/17 09: 47; Admin Dose 15 MG; Start 09/11/17 at 09:00 Insulin Glargine (Lantus) 13 unit QHS SC Last administered on 09/15/17 20:50; Admin Dose 13 UNIT; Start 09/11/17 at 21:00 Furosemide (Lasix) 40 mg ,, IV Last administered on 09/16/17 12:17; Admin Dose 40 MG; Start 09/12/17 at 09:00 Hydralazine HCl (Apresoline) 50 mg TID PO Last administered on 09/16/17 12:16 ; Admin Dose 50 MG; Start 09/15/17 at 13:00 Nystatin (Nystatin Susp) 5 ml QID PO Last administered on 09/16/17 12:16; Admin Dose 5 ML; Start 09/15/17 at 17:00 Diagnostic Test (Pha) (Accu-Chek) 1 ea 02 XX ; Start 09/16/17 at 02:00 JOANA BARKLEY MD Sep 16, 2017 15:34
--- NOTE | 2017-09-16 16:47 | CONS ---
Date/Time of Note Date/Time of Note DATE: 09/16/17 TIME: 16:42 Assessment/Plan Assessment/Plan Additional Assessment/Plan Acute decompensated diastolic congestive heart failure Preserved ejection fraction Hypertension Mild to moderate aortic valve stenosis Volume overload Sepsis Pneumonia Cellulitis Acute on chronic kidney disease -Overall respiratory status continues to improve, continue diuretics as per our nephrology colleagues. Antibiotics as per infectious disease. Blood pressure trend is better on increased hydralazine. Consultation Date/Type/Reason Admit Date/Time Aug 24, 2017 at 19:05 Initial Consult Date 08/31/17 Type of Consultation: cv Referring Provider: GIA DUMONT 24 HR Interval Summary Free Text/Dictation sob is better, overall feeling better Exam/Review of Systems Vital Signs Vitals Vital Signs Date Time Temp Pulse Resp B/P Pulse Ox O2 Delivery O2 Flow Rate FiO2 09/16/17 14:43 99.3 81 22 146/66 98 09/16/17 13:06 Nasal Cannula 2.0 09/14/17 16:55 28 Intake and Output 09/15/17 09/15/17 09/16/17 14:59 22:59 06:59 Intake Total 840 ml 240 ml Output Total 2000 ml 1700 ml Balance -1160 ml -1460 ml Exam nad Constitutional: alert, obese, oriented Head: normocephalic Respiratory: other (course bs, no wheeze) Cardiovascular: other (s1s2), regular rate and rhythm Gastrointestinal: bowel sounds, non-tender, soft Extremities: edema Results Result Diagram: 09/16/17 0515 09/16/17 0515 Results 24 hrs Laboratory Tests Test 09/15/17 17:28 09/15/17 20:41 09/16/17 05:15 09/16/17 08:14 Bedside Glucose 112 173 82 White Blood Count 13.2 H Red Blood Count 2.71 L Hemoglobin 8.0 L Hematocrit 25.2 L Mean Corpuscular Volume 93.0 Mean Corpuscular Hemoglobin 29.5 Mean Corpuscular Hemoglobin Concent 31.7 L Red Cell Distribution Width 18.4 H Platelet Count 448 H Mean Platelet Volume 9.3 Neutrophils % 65.6 Lymphocytes % 12.8 L Monocytes % 18.9 H Eosinophils % 0.4 Basophils % 0.3 Nucleated Red Blood Cells % 0.0 Neutrophils # 8.6 H Lymphocytes # 1.7 Monocytes # 2.5 H Eosinophils # 0.1 Basophils # 0.0 Nucleated Red Blood Cells # 0.0 Absolute Reticulocyte Count 0.208 H Percent Reticulocyte Count 7.7 H Sodium Level 136 Potassium Level 3.7 Chloride Level 94 L Carbon Dioxide Level 33 H Anion Gap 13 Blood Urea Nitrogen 44 H Creatinine 2.44 H Glucose Level 94 Calcium Level 8.2 L Phosphorus Level 4.6 Magnesium Level 1.9 Albumin 2.8 L Test 09/16/17 12:11 09/16/17 12:23 Bedside Glucose 259 H Lab Scanned Report REFERENCE LAB Medications Medications Current Medications Ondansetron HCl (Zofran Inj) 4 mg Q6H PRN IV NAUSEA AND/OR VOMITING Last administered on 09/04/17 13:47; Admin Dose 4 MG; Start 08/25/17 at 08:00 Morphine Sulfate (morphine) 2 mg Q4H PRN IV 5-08/24 PAIN Last administered on 09/01/17 20:06; Admin Dose 2 MG; Start 08/25/17 at 08:00 Loratadine (Claritin) 10 mg DAILY PO Last administered on 09/16/17 09:47; Admin Dose 10 MG; Start 08/25/17 at 09:00 Losartan Potassium (Cozaar) 50 mg DAILY PO Last administered on 09/16/17 10:39 ; Admin Dose 50 MG; Start 08/25/17 at 09:00 Miscellaneous Information 1 ea NOTE XX ; Start 08/25/17 at 14:00 Glucose (Glutose) 15 gm Q15M PRN PO DECREASED GLUCOSE; Start 08/25/17 at 14:00 Glucose (Glutose) 22.5 gm Q15M PRN PO DECREASED GLUCOSE; Start 08/25/17 at 14: 00 Dextrose (D50w Syringe) 25 ml Q15M PRN IV DECREASED GLUCOSE Last administered on 09/05/17 12:07; Admin Dose 25 ML; Start 08/25/17 at 14:00 Dextrose (D50w Syringe) 50 ml Q15M PRN IV DECREASED GLUCOSE Last administered on 09/03/17 20:53; Admin Dose 50 ML; Start 08/25/17 at 14:00 Glucagon (Glucagen) 1 mg Q15M PRN IM DECREASED GLUCOSE; Start 08/25/17 at 14: 00 Glucose (Glutose) 15 gm Q15M PRN BUCCAL DECREASED GLUCOSE; Start 08/25/17 at 14:00 Acetaminophen (Tylenol Tab) 650 mg Q4H PRN PO PAIN AND OR ELEVATED TEMP Last administered on 08/26/17 17:06; Admin Dose 650 MG; Start 08/25/17 at 20:30 Miscellaneous Medication (Bax Susp) 10 ml TID PO Last administered on 12:16; Admin Dose 10 ML; Start 08/29/17 at 13:00 Morphine Sulfate (morphine) 1 mg Q4H PRN IV LESS THAN 5/10 PAIN Last administered on 09/01/17 13:10; Admin Dose 1 MG; Start 08/30/17 at 20:00 Hydralazine HCl (Apresoline) 10 mg Q6H PRN IV ELEVATED SYSTOLIC BP Last administered on 09/15/17 02:07; Admin Dose 10 MG; Start 09/01/17 at 21:30 Silver Sulfadiazine (Thermazene 1% 400 Gm) 1 applic BID TOP Last administered on 09/16/17 11:07; Admin Dose 1 APPLIC; Start 09/04/17 at 14:00 Hydralazine HCl (Apresoline) 10 mg Q4H PRN IV ELEVATED BLOOD PRESSURE Last administered on 09/16/17 02:33; Admin Dose 10 MG; Start 09/05/17 at 01:00 Heparin Sodium (Porcine) (Heparin (5000 Units/0.5 ml)) 5,000 unit Q8 SC Last administered on 09/16/17 14:56; Admin Dose 5,000 UNIT; Start 09/06/17 at 22:00 Epoetin Kashif (Epogen (Esrd)) 10,000 units TuThSa@17 SC Last administered on 17:02; Admin Dose 10,000 UNITS; Start 09/07/17 at 17:00 Amlodipine Besylate (Norvasc) 10 mg DAILY PO Last administered on 09/16/17 09: 47; Admin Dose 10 MG; Start 09/08/17 at 09:00 Potassium Chloride (Klor-Con 20) 20 meq DAILY PO Last administered on 09:48; Admin Dose 20 MEQ; Start 09/10/17 at 09:00 Bisoprolol Fumarate (Zebeta) 15 mg DAILY PO Last administered on 09/16/17 09: 47; Admin Dose 15 MG; Start 09/11/17 at 09:00 Insulin Glargine (Lantus) 13 unit QHS SC Last administered on 09/15/17 20:50; Admin Dose 13 UNIT; Start 09/11/17 at 21:00 Furosemide (Lasix) 40 mg ,, IV Last administered on 09/16/17 12:17; Admin Dose 40 MG; Start 09/12/17 at 09:00 Hydralazine HCl (Apresoline) 50 mg TID PO Last administered on 09/16/17 12:16 ; Admin Dose 50 MG; Start 09/15/17 at 13:00 Nystatin (Nystatin Susp) 5 ml QID PO Last administered on 09/16/17 12:16; Admin Dose 5 ML; Start 09/15/17 at 17:00 Diagnostic Test (Pha) (Accu-Chek) 1 ea 02 XX ; Start 09/16/17 at 02:00 Tj Marie DO Sep 16, 2017 16:47
[2017-09-16] MEDS: EPOETIN 10000 UNITS/1 ML INJ (ESRD) SC SCH (17:37)
--- NOTE | 2017-09-16 19:40 | CONS ---
Date/Time of Note Date/Time of Note DATE: 09/16/17 TIME: 19:38 Assessment/Plan Assessment/Plan Chief Complaint/Hosp Course 1. acute on-chronic kidney disease due to underlying sepsis/meds BETTER 2 Underlying acute tubular necrosis,better 3 Likely underlying diabetic nephropathy, underlying hypertensive nephrosclerosis BETTER 4 pancytopenia could be due to sepsis, as well as drug-induced mthx/sulpha 5. Hyponatremia. resolved 6. METABOLIC ACIDOSIS BETTER 7 Nephrotic range proteinuria 8 BLE atherosclerosis 9 PNEUMONIA AND PUL EDEMA BETTER PLAN DIURETIC CK LABS fluid res PER PCP DC PLANNING Problems: Consultation Date/Type/Reason Admit Date/Time Aug 24, 2017 at 19:05 Initial Consult Date RENAL F/U Type of Consultation: NO DISTRESS Referring Provider: GIA DUMONT 24 HR Interval Summary Constitutional: improved, No chills, No diaphoresis Exam/Review of Systems Vital Signs Vitals Vital Signs Date Time Temp Pulse Resp B/P Pulse Ox O2 Delivery O2 Flow Rate FiO2 09/16/17 17:45 82 145/65 09/16/17 17:20 22 97 Nasal Cannula 2.0 09/16/17 14:43 99.3 09/14/17 16:55 28 Intake and Output 09/15/17 09/15/17 09/16/17 15:00 23:00 07:00 Intake Total 840 ml 240 ml Output Total 2000 ml 1700 ml Balance -1160 ml -1460 ml Exam Respiratory: clear to auscultation Cardiovascular: regular rate and rhythm Gastrointestinal: bowel sounds (+), soft Extremities: edema (LESS) Results Result Diagram: 09/16/17 0515 09/16/17 0515 Results 24 hrs Laboratory Tests Test 09/15/17 20:41 09/16/17 05:15 09/16/17 08:14 09/16/17 12:11 Bedside Glucose 173 82 259 H White Blood Count 13.2 H Red Blood Count 2.71 L Hemoglobin 8.0 L Hematocrit 25.2 L Mean Corpuscular Volume 93.0 Mean Corpuscular Hemoglobin 29.5 Mean Corpuscular Hemoglobin Concent 31.7 L Red Cell Distribution Width 18.4 H Platelet Count 448 H Mean Platelet Volume 9.3 Neutrophils % 65.6 Lymphocytes % 12.8 L Monocytes % 18.9 H Eosinophils % 0.4 Basophils % 0.3 Nucleated Red Blood Cells % 0.0 Neutrophils # 8.6 H Lymphocytes # 1.7 Monocytes # 2.5 H Eosinophils # 0.1 Basophils # 0.0 Nucleated Red Blood Cells # 0.0 Absolute Reticulocyte Count 0.208 H Percent Reticulocyte Count 7.7 H Sodium Level 136 Potassium Level 3.7 Chloride Level 94 L Carbon Dioxide Level 33 H Anion Gap 13 Blood Urea Nitrogen 44 H Creatinine 2.44 H Glucose Level 94 Calcium Level 8.2 L Phosphorus Level 4.6 Magnesium Level 1.9 Albumin 2.8 L Test 09/16/17 12:23 09/16/17 17:33 Lab Scanned Report REFERENCE LAB Bedside Glucose 137 Medications Medications Current Medications Ondansetron HCl (Zofran Inj) 4 mg Q6H PRN IV NAUSEA AND/OR VOMITING Last administered on 09/04/17 13:47; Admin Dose 4 MG; Start 08/25/17 at 08:00 Morphine Sulfate (morphine) 2 mg Q4H PRN IV PAIN Last administered on 09/01/17 20:06; Admin Dose 2 MG; Start 08/25/17 at 08:00 Loratadine (Claritin) 10 mg DAILY PO Last administered on 09/16/17 09:47; Admin Dose 10 MG; Start 08/25/17 at 09:00 Losartan Potassium (Cozaar) 50 mg DAILY PO Last administered on 09/16/17 10:39 ; Admin Dose 50 MG; Start 08/25/17 at 09:00 Miscellaneous Information 1 ea NOTE XX ; Start 08/25/17 at 14:00 Glucose (Glutose) 15 gm Q15M PRN PO DECREASED GLUCOSE; Start 08/25/17 at 14:00 Glucose (Glutose) 22.5 gm Q15M PRN PO DECREASED GLUCOSE; Start 08/25/17 at 14: 00 Dextrose (D50w Syringe) 25 ml Q15M PRN IV DECREASED GLUCOSE Last administered on 09/05/17 12:07; Admin Dose 25 ML; Start 08/25/17 at 14:00 Dextrose (D50w Syringe) 50 ml Q15M PRN IV DECREASED GLUCOSE Last administered on 09/03/17 20:53; Admin Dose 50 ML; Start 08/25/17 at 14:00 Glucagon (Glucagen) 1 mg Q15M PRN IM DECREASED GLUCOSE; Start 08/25/17 at 14: 00 Glucose (Glutose) 15 gm Q15M PRN BUCCAL DECREASED GLUCOSE; Start 08/25/17 at 14:00 Acetaminophen (Tylenol Tab) 650 mg Q4H PRN PO PAIN AND OR ELEVATED TEMP Last administered on 08/26/17 17:06; Admin Dose 650 MG; Start 08/25/17 at 20:30 Miscellaneous Medication (Bax Susp) 10 ml TID PO Last administered on 12:16; Admin Dose 10 ML; Start 08/29/17 at 13:00 Morphine Sulfate (morphine) 1 mg Q4H PRN IV LESS THAN 5/10 PAIN Last administered on 09/01/17 13:10; Admin Dose 1 MG; Start 08/30/17 at 20:00 Hydralazine HCl (Apresoline) 10 mg Q6H PRN IV ELEVATED SYSTOLIC BP Last administered on 09/15/17 02:07; Admin Dose 10 MG; Start 09/01/17 at 21:30 Silver Sulfadiazine (Thermazene 1% 400 Gm) 1 applic BID TOP Last administered on 09/16/17 11:07; Admin Dose 1 APPLIC; Start 09/04/17 at 14:00 Hydralazine HCl (Apresoline) 10 mg Q4H PRN IV ELEVATED BLOOD PRESSURE Last administered on 09/16/17 02:33; Admin Dose 10 MG; Start 09/05/17 at 01:00 Heparin Sodium (Porcine) (Heparin (5000 Units/0.5 ml)) 5,000 unit Q8 SC Last administered on 09/16/17 14:56; Admin Dose 5,000 UNIT; Start 09/06/17 at 22:00 Epoetin Kashif (Epogen (Esrd)) 10,000 units TuThSa@17 SC Last administered on 17:37; Admin Dose 10,000 UNITS; Start 09/07/17 at 17:00 Amlodipine Besylate (Norvasc) 10 mg DAILY PO Last administered on 09/16/17 09: 47; Admin Dose 10 MG; Start 09/08/17 at 09:00 Potassium Chloride (Klor-Con 20) 20 meq DAILY PO Last administered on 09:48; Admin Dose 20 MEQ; Start 09/10/17 at 09:00 Bisoprolol Fumarate (Zebeta) 15 mg DAILY PO Last administered on 09/16/17 09: 47; Admin Dose 15 MG; Start 09/11/17 at 09:00 Insulin Glargine (Lantus) 13 unit QHS SC Last administered on 09/15/17 20:50; Admin Dose 13 UNIT; Start 09/11/17 at 21:00 Furosemide (Lasix) 40 mg ,,18 IV Last administered on 09/16/17 17:44; Admin Dose 40 MG; Start 09/12/17 at 09:00 Hydralazine HCl (Apresoline) 50 mg TID PO Last administered on 09/16/17 12:16 ; Admin Dose 50 MG; Start 09/15/17 at 13:00 Nystatin (Nystatin Susp) 5 ml QID PO Last administered on 09/16/17 17:38; Admin Dose 5 ML; Start 09/15/17 at 17:00 Diagnostic Test (Pha) (Accu-Chek) 1 ea 02 XX ; Start 09/16/17 at 02:00 JENNA PATTEN MD Sep 16, 2017 19:40
[2017-09-16] MEDS: INSULIN GLARGINE [LANtus] 3 ML PEN SC SCH (21:05)
[2017-09-17] MEDS: ALBUTEROL/IPRATROPIUM (NEB) 3 ML AMP HHN SCH ×6 (00:22→20:07)
[2017-09-17] MEDS: ACCU-CHEK XX SCH ×5 (01:09→21:00)
[2017-09-17 02:56] VITALS: BP 139/66; RESP 20
[2017-09-17] MEDS: HEPARIN 5,000 UNIT/0.5 ML VIAL SC SCH ×3 (05:29→21:38)
[2017-09-17 07:50] VITALS: BP 148/69; RESP 16
[2017-09-17] MEDS: INSULIN ASPART [NOVOLOG] 3 ML PEN SC SCH ×4 (08:14→21:41)
[2017-09-17] MEDS ORDERED: POTASSIUM CHLORIDE (SR) 20 MEQ TAB PO STA (08:41)
[2017-09-17] MEDS: AMLODIPINE 10 MG TAB PO SCH (08:53)
[2017-09-17] MEDS: POTASSIUM CHLORIDE (SR) 20 MEQ TAB PO SCH (08:55)
[2017-09-17] MEDS: NYSTATIN SUSP 5 ML CUP PO SCH ×4 (08:55→21:46)
[2017-09-17] MEDS: LORATADINE 10 MG TAB PO SCH (08:55)
[2017-09-17] MEDS: FUROSEMIDE 40 MG INJ IV SCH (09:00)
[2017-09-17] MEDS: DIPHENHYD/MYLANTA/LIDO (PO SYG) PO SCH ×3 (09:00→21:47)
[2017-09-17] MEDS: BISOPROLOL 5 MG TAB PO SCH (09:30)
[2017-09-17] MEDS: LOSARTAN 50 MG TAB PO SCH (09:34)
[2017-09-17 10:11] VITALS: BP 136/63; PULSE 88; RESP 24
--- NOTE | 2017-09-17 10:11 | PN ---
Date/Time of Note Date/Time of Note DATE: 09/17/17 TIME: 10:01 Assessment/Plan VTE Prophylaxis VTE Prophylaxis Intervention: contraindicated Lines/Catheters IV Catheter Type (from Nrsg): Saline Lock Urinary Cath still in place: Yes Reason Cath still needed: terminal illness/intractable pain Assessment/Plan Assessment/Plan 1. Acute respiratory distress secondary to Bilateral Pneumonia- improving - Patient found to have b/l PNA on initial chest xray - Doing well on 2L NC and saturating >90%. Will continue to wean off supplemental O2 - Completed course of antibiotics - Pulmonology consultation placed and appreciated recommendations - On Neb treatments - Completed course of steroids - Continue on Lasix 2. HTN - Bp more controlled after hydralazine increase - Continue monitoring and adjust as needed 3. Pulmonary edema- improving - Cardiology on board and recommendations appreciated - On Lasix which has been effective. Switched to PO and will continue monitor - patient saturating 100% on 2L 4. Acute on chronic diastolic congestive heart failure - continue lasix, switched to PO - Cardiology on board and recommendations appreciated - ECHO results noted 5. Left lower extremity cellulitis- resolving - ID and Surgery on board. Recommendations appreciated - Antibiotic per ID - CT LE showed cellulitis and no evidence of osteomyelitis. Xray LE also performed and no osteomyelitis appreciated. -gen surg/vascular surg do not feel any acute intervention is needed 6. Mucositis 2/2 methotrexate use- improved - diphen/lido/mal oral solution ordered. Morphine if pain remain intolerable for PO intake - Tolerating soft mech diet 7. Pancytopenia- improved - now leukocytosis, possible due to filgrastim per heme/onc - Hgb still low. 7.7, but no need for transfusions at this time. Will transfuse if <7 - Hematology on board and recommendations appreciated. - s/p multiple blood transfusions and plt transfusions. 8. Leukocytosis- trending down - Continue to monitor. May be secondary to Neupogen 9. Neutropenia- resolved - WBC downtrending now <15 and Neupogen no longer on board - Will continue to monitor - Heme on board and recommendations appreciated 10. BK vs BK on CKD - Nephrology on board and recommendations appreciated. - Cr continues to improve since admission, likely chronic component - Monitor UOP - HIV negative, KASSY negative 11. Hypokalemia - K 3.6, replaced 12. Eosinophilia - normalized after d/c sulfasalazine and mtx 13. Vascular insufficiency - Vascular surgery on board and recommendations appreciated. No current vascular intervention as the patient has not developed any gangrene or ulcers - Will need to follow up as outpatient due to LE atherosclerosis 14. Disposition - awaiting SNF placement Subjective 24 Hr Interval Summary Free Text/Dictation Patient resting comfortably. Has discomfort of LLE but improves with ointment. No acute overnight events. Exam/Review of Systems Vital Signs Vitals Vital Signs Date Time Temp Pulse Resp B/P Pulse Ox O2 Delivery O2 Flow Rate FiO2 09/17/17 09:41 85 20 100 Nasal Cannula 2.0 09/17/17 07:50 98.5 148/69 09/14/17 16:55 28 Intake and Output 09/16/17 09/16/17 09/17/17 15:00 23:00 07:00 Intake Total 860 ml 470 ml Output Total 1150 ml 930 ml Balance -290 ml -460 ml Exam General: Patient is resting comfortably and in NAD Head: Normocephalic atraumatic Eyes: EOMI, pupils reactive to light Neck: Supple, nontender, midline Respiratory: crackles bases, diminished breath sounds, no wheezing Cardiovascular: regular rate, no obvious murmurs Gastrointestinal: non-tender to palpation, bowel sounds heard. soft, nondistended Neurological: Moves all extremities spontaneously Skin: improvement in discoloration LLE, dryness of skin but less erythema. no tenderness Results Result Diagram: 09/17/17 0507 09/17/17 0507 Results 24 hrs Laboratory Tests Test 09/16/17 12:11 09/16/17 12:23 09/16/17 17:33 09/16/17 20:59 Bedside Glucose 259 H 137 202 Lab Scanned Report REFERENCE LAB Test 09/17/17 01:08 09/17/17 05:07 09/17/17 08:06 Bedside Glucose 139 99 White Blood Count 13.0 H Red Blood Count 2.68 L Hemoglobin 7.7 L Hematocrit 25.0 L Mean Corpuscular Volume 93.3 Mean Corpuscular Hemoglobin 28.7 L Mean Corpuscular Hemoglobin Concent 30.8 L Red Cell Distribution Width 18.2 H Platelet Count 440 H Mean Platelet Volume 9.6 Neutrophils % 64.0 Lymphocytes % 11.6 L Monocytes % 21.7 H Eosinophils % 0.2 Basophils % 0.4 Nucleated Red Blood Cells % 0.0 Neutrophils # 8.4 H Lymphocytes # 1.5 Monocytes # 2.8 H Eosinophils # 0.0 Basophils # 0.1 Nucleated Red Blood Cells # 0.0 Sodium Level 136 Potassium Level 3.6 Chloride Level 95 L Carbon Dioxide Level 34 H Anion Gap 11 Blood Urea Nitrogen 42 H Creatinine 2.63 H Glucose Level 102 Calcium Level 8.4 Phosphorus Level 4.6 Magnesium Level 1.9 Albumin 2.7 L Medications Medications Current Medications Ondansetron HCl (Zofran Inj) 4 mg Q6H PRN IV NAUSEA AND/OR VOMITING Last administered on 09/04/17 13:47; Admin Dose 4 MG; Start 08/25/17 at 08:00 Morphine Sulfate (morphine) 2 mg Q4H PRN IV PAIN Last administered on 09/01/17 20:06; Admin Dose 2 MG; Start 08/25/17 at 08:00 Loratadine (Claritin) 10 mg DAILY PO Last administered on 09/17/17 08:55; Admin Dose 10 MG; Start 08/25/17 at 09:00 Losartan Potassium (Cozaar) 50 mg DAILY PO Last administered on 09/17/17 09:34 ; Admin Dose 50 MG; Start 08/25/17 at 09:00 Miscellaneous Information 1 ea NOTE XX ; Start 08/25/17 at 14:00 Glucose (Glutose) 15 gm Q15M PRN PO DECREASED GLUCOSE; Start 08/25/17 at 14:00 Glucose (Glutose) 22.5 gm Q15M PRN PO DECREASED GLUCOSE; Start 08/25/17 at 14: 00 Dextrose (D50w Syringe) 25 ml Q15M PRN IV DECREASED GLUCOSE Last administered on 09/05/17 12:07; Admin Dose 25 ML; Start 08/25/17 at 14:00 Dextrose (D50w Syringe) 50 ml Q15M PRN IV DECREASED GLUCOSE Last administered on 09/03/17 20:53; Admin Dose 50 ML; Start 08/25/17 at 14:00 Glucagon (Glucagen) 1 mg Q15M PRN IM DECREASED GLUCOSE; Start 08/25/17 at 14: 00 Glucose (Glutose) 15 gm Q15M PRN BUCCAL DECREASED GLUCOSE; Start 08/25/17 at 14:00 Acetaminophen (Tylenol Tab) 650 mg Q4H PRN PO PAIN AND OR ELEVATED TEMP Last administered on 08/26/17 17:06; Admin Dose 650 MG; Start 08/25/17 at 20:30 Miscellaneous Medication (Bax Susp) 10 ml TID PO Last administered on 09:00; Admin Dose 10 ML; Start 08/29/17 at 13:00 Morphine Sulfate (morphine) 1 mg Q4H PRN IV LESS THAN 5/10 PAIN Last administered on 09/01/17 13:10; Admin Dose 1 MG; Start 08/30/17 at 20:00 Hydralazine HCl (Apresoline) 10 mg Q6H PRN IV ELEVATED SYSTOLIC BP Last administered on 09/15/17 02:07; Admin Dose 10 MG; Start 09/01/17 at 21:30 Silver Sulfadiazine (Thermazene 1% 400 Gm) 1 applic BID TOP Last administered on 09/16/17 21:06; Admin Dose 1 APPLIC; Start 09/04/17 at 14:00 Hydralazine HCl (Apresoline) 10 mg Q4H PRN IV ELEVATED BLOOD PRESSURE Last administered on 09/16/17 02:33; Admin Dose 10 MG; Start 09/05/17 at 01:00 Heparin Sodium (Porcine) (Heparin (5000 Units/0.5 ml)) 5,000 unit Q8 SC Last administered on 09/17/17 05:29; Admin Dose 5,000 UNIT; Start 09/06/17 at 22:00 Epoetin Kashif (Epogen (Esrd)) 10,000 units TuThSa@17 SC Last administered on 17:37; Admin Dose 10,000 UNITS; Start 09/07/17 at 17:00 Amlodipine Besylate (Norvasc) 10 mg DAILY PO Last administered on 09/17/17 08: 53; Admin Dose 10 MG; Start 09/08/17 at 09:00 Potassium Chloride (Klor-Con 20) 20 meq DAILY PO Last administered on 08:55; Admin Dose 20 MEQ; Start 09/10/17 at 09:00 Bisoprolol Fumarate (Zebeta) 15 mg DAILY PO Last administered on 09/17/17 09: 30; Admin Dose 15 MG; Start 09/11/17 at 09:00 Insulin Glargine (Lantus) 13 unit QHS SC Last administered on 09/16/17 21:05; Admin Dose 13 UNIT; Start 09/11/17 at 21:00 Hydralazine HCl (Apresoline) 50 mg TID PO Last administered on 09/17/17 08:54 ; Admin Dose 50 MG; Start 09/15/17 at 13:00 Nystatin (Nystatin Susp) 5 ml QID PO Last administered on 09/17/17 08:55; Admin Dose 5 ML; Start 09/15/17 at 17:00 Diagnostic Test (Pha) (Accu-Chek) 1 ea 02 XX ; Start 09/16/17 at 02:00 JOANA BARKLEY MD Sep 17, 2017 10:11
[2017-09-17] MEDS: SILVER SULFADIAZINE 1% 400 GM CR TOP SCH ×2 (10:42→21:47)
--- NOTE | 2017-09-17 11:46 | CONS ---
Date/Time of Note Date/Time of Note DATE: 09/17/17 TIME: 11:45 Assessment/Plan Assessment/Plan Additional Assessment/Plan Acute decompensated diastolic congestive heart failure Preserved ejection fraction Hypertension Mild to moderate aortic valve stenosis Volume overload Sepsis Pneumonia Cellulitis Acute on chronic kidney disease -Overall respiratory status continues to improve, continue diuretics as per our nephrology colleagues. Antibiotics as per infectious disease. Blood pressure trend has improved, DC planning.. Consultation Date/Type/Reason Admit Date/Time Aug 24, 2017 at 19:05 Initial Consult Date 08/31/17 Type of Consultation: cv Referring Provider: GIA DUMONT 24 HR Interval Summary Free Text/Dictation Denies shortness of breath Exam/Review of Systems Vital Signs Vitals Vital Signs Date Time Temp Pulse Resp B/P Pulse Ox O2 Delivery O2 Flow Rate FiO2 09/17/17 10:21 Nasal Cannula 2.0 09/17/17 10:11 98.5 88 24 136/63 97 09/14/17 16:55 28 Intake and Output 09/16/17 09/16/17 09/17/17 15:00 23:00 07:00 Intake Total 860 ml 470 ml Output Total 1150 ml 930 ml Balance -290 ml -460 ml Exam Following commands, no apparent distress Constitutional: alert Head: normocephalic Respiratory: other (Coarse breath sounds bilaterally, no wheezing) Cardiovascular: other (S1-S2 heard), regular rate and rhythm Gastrointestinal: bowel sounds, non-tender, soft Extremities: edema Results Result Diagram: 09/17/17 0507 09/17/17 0507 Results 24 hrs Laboratory Tests Test 09/16/17 12:11 09/16/17 12:23 09/16/17 17:33 09/16/17 20:59 Bedside Glucose 259 H 137 202 Lab Scanned Report REFERENCE LAB Test 09/17/17 01:08 09/17/17 05:07 09/17/17 08:06 Bedside Glucose 139 99 White Blood Count 13.0 H Red Blood Count 2.68 L Hemoglobin 7.7 L Hematocrit 25.0 L Mean Corpuscular Volume 93.3 Mean Corpuscular Hemoglobin 28.7 L Mean Corpuscular Hemoglobin Concent 30.8 L Red Cell Distribution Width 18.2 H Platelet Count 440 H Mean Platelet Volume 9.6 Neutrophils % 64.0 Lymphocytes % 11.6 L Monocytes % 21.7 H Eosinophils % 0.2 Basophils % 0.4 Nucleated Red Blood Cells % 0.0 Neutrophils # 8.4 H Lymphocytes # 1.5 Monocytes # 2.8 H Eosinophils # 0.0 Basophils # 0.1 Nucleated Red Blood Cells # 0.0 Sodium Level 136 Potassium Level 3.6 Chloride Level 95 L Carbon Dioxide Level 34 H Anion Gap 11 Blood Urea Nitrogen 42 H Creatinine 2.63 H Glucose Level 102 Calcium Level 8.4 Phosphorus Level 4.6 Magnesium Level 1.9 Albumin 2.7 L Medications Medications Current Medications Ondansetron HCl (Zofran Inj) 4 mg Q6H PRN IV NAUSEA AND/OR VOMITING Last administered on 09/04/17 13:47; Admin Dose 4 MG; Start 08/25/17 at 08:00 Morphine Sulfate (morphine) 2 mg Q4H PRN IV PAIN Last administered on 09/01/17 20:06; Admin Dose 2 MG; Start 08/25/17 at 08:00 Loratadine (Claritin) 10 mg DAILY PO Last administered on 09/17/17 08:55; Admin Dose 10 MG; Start 08/25/17 at 09:00 Losartan Potassium (Cozaar) 50 mg DAILY PO Last administered on 09/17/17 09:34 ; Admin Dose 50 MG; Start 08/25/17 at 09:00 Miscellaneous Information 1 ea NOTE XX ; Start 08/25/17 at 14:00 Glucose (Glutose) 15 gm Q15M PRN PO DECREASED GLUCOSE; Start 08/25/17 at 14:00 Glucose (Glutose) 22.5 gm Q15M PRN PO DECREASED GLUCOSE; Start 08/25/17 at 14: 00 Dextrose (D50w Syringe) 25 ml Q15M PRN IV DECREASED GLUCOSE Last administered on 09/05/17 12:07; Admin Dose 25 ML; Start 08/25/17 at 14:00 Dextrose (D50w Syringe) 50 ml Q15M PRN IV DECREASED GLUCOSE Last administered on 09/03/17 20:53; Admin Dose 50 ML; Start 08/25/17 at 14:00 Glucagon (Glucagen) 1 mg Q15M PRN IM DECREASED GLUCOSE; Start 08/25/17 at 14: 00 Glucose (Glutose) 15 gm Q15M PRN BUCCAL DECREASED GLUCOSE; Start 08/25/17 at 14:00 Acetaminophen (Tylenol Tab) 650 mg Q4H PRN PO PAIN AND OR ELEVATED TEMP Last administered on 08/26/17 17:06; Admin Dose 650 MG; Start 08/25/17 at 20:30 Miscellaneous Medication (Bax Susp) 10 ml TID PO Last administered on 09:00; Admin Dose 10 ML; Start 08/29/17 at 13:00 Morphine Sulfate (morphine) 1 mg Q4H PRN IV LESS THAN 5/10 PAIN Last administered on 09/01/17 13:10; Admin Dose 1 MG; Start 08/30/17 at 20:00 Hydralazine HCl (Apresoline) 10 mg Q6H PRN IV ELEVATED SYSTOLIC BP Last administered on 09/15/17 02:07; Admin Dose 10 MG; Start 09/01/17 at 21:30 Silver Sulfadiazine (Thermazene 1% 400 Gm) 1 applic BID TOP Last administered on 09/17/17 10:42; Admin Dose 1 APPLIC; Start 09/04/17 at 14:00 Hydralazine HCl (Apresoline) 10 mg Q4H PRN IV ELEVATED BLOOD PRESSURE Last administered on 09/16/17 02:33; Admin Dose 10 MG; Start 09/05/17 at 01:00 Heparin Sodium (Porcine) (Heparin (5000 Units/0.5 ml)) 5,000 unit Q8 SC Last administered on 09/17/17 05:29; Admin Dose 5,000 UNIT; Start 09/06/17 at 22:00 Epoetin Kashif (Epogen (Esrd)) 10,000 units TuThSa@17 SC Last administered on 17:37; Admin Dose 10,000 UNITS; Start 09/07/17 at 17:00 Amlodipine Besylate (Norvasc) 10 mg DAILY PO Last administered on 09/17/17 08: 53; Admin Dose 10 MG; Start 09/08/17 at 09:00 Potassium Chloride (Klor-Con 20) 20 meq DAILY PO Last administered on 08:55; Admin Dose 20 MEQ; Start 09/10/17 at 09:00 Bisoprolol Fumarate (Zebeta) 15 mg DAILY PO Last administered on 09/17/17 09: 30; Admin Dose 15 MG; Start 09/11/17 at 09:00 Insulin Glargine (Lantus) 13 unit QHS SC Last administered on 09/16/17 21:05; Admin Dose 13 UNIT; Start 09/11/17 at 21:00 Hydralazine HCl (Apresoline) 50 mg TID PO Last administered on 09/17/17 08:54 ; Admin Dose 50 MG; Start 09/15/17 at 13:00 Nystatin (Nystatin Susp) 5 ml QID PO Last administered on 09/17/17 08:55; Admin Dose 5 ML; Start 09/15/17 at 17:00 Diagnostic Test (Pha) (Accu-Chek) 1 ea 02 XX ; Start 09/16/17 at 02:00 Tj Marie DO Sep 17, 2017 11:46
--- NOTE | 2017-09-17 13:40 | CONS ---
Date/Time of Note Date/Time of Note DATE: 09/17/17 TIME: 13:39 Consult Date/Type/Reason Admit Date/Time Aug 24, 2017 at 19:05 Initial Consult Date 08/29/17 Type of Consultation: ID Ordering Provider: GIA DUMONT Objective Vital Signs Date Time Temp Pulse Resp B/P Pulse Ox O2 Delivery O2 Flow Rate FiO2 09/17/17 13:37 82 20 100 Nasal Cannula 2.0 09/17/17 10:11 98.5 136/63 09/14/17 16:55 28 Intake and Output 09/16/17 09/16/17 09/17/17 15:00 23:00 07:00 Intake Total 860 ml 470 ml Output Total 1150 ml 930 ml Balance -290 ml -460 ml Results/Medications Result Diagram: 09/17/17 0507 09/17/17 0507 Results 24 hrs Laboratory Tests Test 09/16/17 17:33 09/16/17 20:59 09/17/17 01:08 09/17/17 05:07 Bedside Glucose 137 202 139 White Blood Count 13.0 H Red Blood Count 2.68 L Hemoglobin 7.7 L Hematocrit 25.0 L Mean Corpuscular Volume 93.3 Mean Corpuscular Hemoglobin 28.7 L Mean Corpuscular Hemoglobin Concent 30.8 L Red Cell Distribution Width 18.2 H Platelet Count 440 H Mean Platelet Volume 9.6 Neutrophils % 64.0 Lymphocytes % 11.6 L Monocytes % 21.7 H Eosinophils % 0.2 Basophils % 0.4 Nucleated Red Blood Cells % 0.0 Neutrophils # 8.4 H Lymphocytes # 1.5 Monocytes # 2.8 H Eosinophils # 0.0 Basophils # 0.1 Nucleated Red Blood Cells # 0.0 Sodium Level 136 Potassium Level 3.6 Chloride Level 95 L Carbon Dioxide Level 34 H Anion Gap 11 Blood Urea Nitrogen 42 H Creatinine 2.63 H Glucose Level 102 Calcium Level 8.4 Phosphorus Level 4.6 Magnesium Level 1.9 Albumin 2.7 L Test 09/17/17 08:06 09/17/17 11:59 Bedside Glucose 99 190 Medications Current Medications Ondansetron HCl (Zofran Inj) 4 mg Q6H PRN IV NAUSEA AND/OR VOMITING Last administered on 09/04/17t 13:47; Admin Dose 4 MG; Start 08/25/17 at 08:00 Morphine Sulfate (morphine) 2 mg Q4H PRN IV 5-08/24 PAIN Last administered on 09/01/17 20:06; Admin Dose 2 MG; Start 08/25/17 at 08:00 Loratadine (Claritin) 10 mg DAILY PO Last administered on 09/17/17 08:55; Admin Dose 10 MG; Start 08/25/17 at 09:00 Losartan Potassium (Cozaar) 50 mg DAILY PO Last administered on 09/17/17 09:34 ; Admin Dose 50 MG; Start 08/25/17 at 09:00 Miscellaneous Information 1 ea NOTE XX ; Start 08/25/17 at 14:00 Glucose (Glutose) 15 gm Q15M PRN PO DECREASED GLUCOSE; Start 08/25/17 at 14:00 Glucose (Glutose) 22.5 gm Q15M PRN PO DECREASED GLUCOSE; Start 08/25/17 at 14: 00 Dextrose (D50w Syringe) 25 ml Q15M PRN IV DECREASED GLUCOSE Last administered on 09/05/17 12:07; Admin Dose 25 ML; Start 08/25/17 at 14:00 Dextrose (D50w Syringe) 50 ml Q15M PRN IV DECREASED GLUCOSE Last administered on 09/03/17 20:53; Admin Dose 50 ML; Start 08/25/17 at 14:00 Glucagon (Glucagen) 1 mg Q15M PRN IM DECREASED GLUCOSE; Start 08/25/17 at 14: 00 Glucose (Glutose) 15 gm Q15M PRN BUCCAL DECREASED GLUCOSE; Start 08/25/17 at 14:00 Acetaminophen (Tylenol Tab) 650 mg Q4H PRN PO PAIN AND OR ELEVATED TEMP Last administered on 08/26/17 17:06; Admin Dose 650 MG; Start 08/25/17 at 20:30 Miscellaneous Medication (Bax Susp) 10 ml TID PO Last administered on 13:26; Admin Dose 10 ML; Start 08/29/17 at 13:00 Morphine Sulfate (morphine) 1 mg Q4H PRN IV LESS THAN 5/10 PAIN Last administered on 09/01/17 13:10; Admin Dose 1 MG; Start 08/30/17 at 20:00 Hydralazine HCl (Apresoline) 10 mg Q6H PRN IV ELEVATED SYSTOLIC BP Last administered on 09/15/17 02:07; Admin Dose 10 MG; Start 09/01/17 at 21:30 Silver Sulfadiazine (Thermazene 1% 400 Gm) 1 applic BID TOP Last administered on 09/17/17 10:42; Admin Dose 1 APPLIC; Start 09/04/17 at 14:00 Hydralazine HCl (Apresoline) 10 mg Q4H PRN IV ELEVATED BLOOD PRESSURE Last administered on 09/16/17 02:33; Admin Dose 10 MG; Start 09/05/17 at 01:00 Heparin Sodium (Porcine) (Heparin (5000 Units/0.5 ml)) 5,000 unit Q8 SC Last administered on 09/17/17 13:32; Admin Dose 5,000 UNIT; Start 09/06/17 at 22:00 Epoetin Kashif (Epogen (Esrd)) 10,000 units TuThSa@17 SC Last administered on 17:37; Admin Dose 10,000 UNITS; Start 09/07/17 at 17:00 Amlodipine Besylate (Norvasc) 10 mg DAILY PO Last administered on 09/17/17 08: 53; Admin Dose 10 MG; Start 09/08/17 at 09:00 Potassium Chloride (Klor-Con 20) 20 meq DAILY PO Last administered on 08:55; Admin Dose 20 MEQ; Start 09/10/17 at 09:00 Bisoprolol Fumarate (Zebeta) 15 mg DAILY PO Last administered on 09/17/17 09: 30; Admin Dose 15 MG; Start 09/11/17 at 09:00 Insulin Glargine (Lantus) 13 unit QHS SC Last administered on 09/16/17 21:05; Admin Dose 13 UNIT; Start 09/11/17 at 21:00 Hydralazine HCl (Apresoline) 50 mg TID PO Last administered on 09/17/17 13:29 ; Admin Dose 50 MG; Start 09/15/17 at 13:00 Nystatin (Nystatin Susp) 5 ml QID PO Last administered on 09/17/17 13:27; Admin Dose 5 ML; Start 09/15/17 at 17:00 Diagnostic Test (Pha) (Accu-Chek) 1 ea 02 XX ; Start 09/16/17 at 02:00 Assessment/Plan Chief Complaint/Hosp Course SUBJECTIVE: Alert, feels good. No fevers. Vital signs stable. PHYSICAL EXAMINATION: GENERAL: This is an obese, well-developed, elderly woman who is in no distress. HEENT: Head atraumatic, normocephalic. Sclerae anicteric. Buccal mucosa dry. NECK: Supple. CHEST: Rise symmetrical. Breath sounds diminished to bases. HEART: S1, S2. ABDOMEN: Soft. Bowel tones present. EXTREMITIES: With resolved erythema and edema of her left lower extremity. ASSESSMENT: 1. S/p sepsis. 2. Status post acute hypoxemic respiratory failure secondary to fluid overload and bilateral pneumonia. 3. S/p Left lower extremity cellulitis. 4. Status post neutropenia and pancytopenia. 5. Acute on possible chronic kidney disease. PLAN: The patient remains stable, off abx, continue management per primary team and consultants, repeat cx's prn. [facility] staff Problems: CODY VASQUEZ NP Sep 17, 2017 13:40
[2017-09-17 14:18] VITALS: BP 144/66; RESP 16
--- NOTE | 2017-09-17 14:22 | PN ---
DATE: 09/17/2017 SUBJECTIVE: The patient has no new complaints. No abdominal pain, no nausea or vomiting. There walsh s been no hematemesis, melena or hematochezia. OBJECTIVE: GENERAL: The patient is a well-developed, obese female who is lying quietly in bed. She is awake a nd alert. VITAL SIGNS: Temperature 98.5, pulse 88 per minute and regular, respirations 22, blood pressure 136 /63 and pulse oximetry is 98% on 2 liters of oxygen by nasal cannula. SKIN: No ecchymosis, no petechiae or rashes. There is flaking of the skin in the pretibial area an d foot on the left side. HEENT: Normocephalic. No evidence of trauma. Pupils equal, round, react to light and accommodatio n. Sclerae nonicteric. Oral mucosa is moist without lesions both conjunctiva and oral mucosa is pa le. NECK: Supple, no jugular venous distention or thyroid enlargement. CHEST: Clear to auscultation and percussion. No rhonchi, wheezes, rales or rubs. NODES: No palpable lymphadenopathy in lymph node bearing area. ABDOMEN: Obese without masses or ascites. EXTREMITIES: No clubbing. No edema or cyanosis. No palpable cords or Kirstie's sign. As noted, the re is the flaking of dry skin in the area of previous cellulitis in the left lower extremity. It is not warm to the touch at this time. NEUROLOGIC: There are no focal neurologic abnormalities. ASSESSMENT: 1. Pancytopenia secondary to methotrexate, resolved. 2. Cellulitis of the left lower extremity, resolved. 3. Anemia, likely related to previous methotrexate exposure. The patient today has a white count of 13,000, hemoglobin 7.7, hematocrit 25, platelet count 440,000 . Red blood cell indices are normal. The patient's reticulocyte percentage is 7.7 with an absolute reticulocyte count of 208,000. This patient does seem to be mounting a reticulocytosis related to the use of erythropoietin. Will recheck patient's iron studies as well as LDH and haptoglobin. The patient has not had hyperbilirubinemia in the past. We will then recheck patient's CBC and reticulocyte count on Wednesday09/20/2017. Dictated By: NOAH ROSEN MD SR/NTS Conf#: [id number] [facility]#: [id number]
--- NOTE | 2017-09-17 14:38 | CONS ---
Date/Time of Note Date/Time of Note DATE: 09/17/17 TIME: 14:38 Assessment/Plan Assessment/Plan Chief Complaint/Hosp Course 1. acute on-chronic kidney disease with no known baseline could be due to underlying sepsis/meds vs drug induced Cr improved significantly 2 Underlying acute tubular necrosis, possibly sepsis-induced due to cellulitis of the left lower extremity. 3 Likely underlying diabetic nephropathy, underlying hypertensive nephrosclerosis 4 pancytopenia could be due to sepsis, as well as drug-induced mthx/sulpha 5. Hyponatremia, resolved 6. Non gap Metabolic acidosis likely secondary to renal failure on bictra 7 Nephrotic range proteinuria 8 BLE atherosclerosis Problems: Additional Assessment/Plan 1. continue fluid restrictions Consultation Date/Type/Reason Admit Date/Time Aug 24, 2017 at 19:05 Initial Consult Date 08/31/17 Type of Consultation: ID Referring Provider: GIA DUMONT 24 HR Interval Summary Constitutional: improved, no complaints Exam/Review of Systems Vital Signs Vitals Vital Signs Date Time Temp Pulse Resp B/P Pulse Ox O2 Delivery O2 Flow Rate FiO2 09/17/17 14:18 99.4 86 16 144/66 100 09/17/17 13:37 Nasal Cannula 2.0 09/14/17 16:55 28 Intake and Output 09/16/17 09/16/17 09/17/17 15:00 23:00 07:00 Intake Total 860 ml 470 ml Output Total 1150 ml 930 ml Balance -290 ml -460 ml Exam Psych: no complaints Eyes: nl conjunctiva Neck: supple Respiratory: clear to auscultation Musculoskeletal: muscle weakness, swelling (lower extremities) Results Result Diagram: 09/17/17 0507 09/17/17 0507 Results 24 hrs Laboratory Tests Test 09/16/17 17:33 09/16/17 20:59 09/17/17 01:08 09/17/17 05:07 Bedside Glucose 137 202 139 White Blood Count 13.0 H Red Blood Count 2.68 L Hemoglobin 7.7 L Hematocrit 25.0 L Mean Corpuscular Volume 93.3 Mean Corpuscular Hemoglobin 28.7 L Mean Corpuscular Hemoglobin Concent 30.8 L Red Cell Distribution Width 18.2 H Platelet Count 440 H Mean Platelet Volume 9.6 Neutrophils % 64.0 Lymphocytes % 11.6 L Monocytes % 21.7 H Eosinophils % 0.2 Basophils % 0.4 Nucleated Red Blood Cells % 0.0 Neutrophils # 8.4 H Lymphocytes # 1.5 Monocytes # 2.8 H Eosinophils # 0.0 Basophils # 0.1 Nucleated Red Blood Cells # 0.0 Sodium Level 136 Potassium Level 3.6 Chloride Level 95 L Carbon Dioxide Level 34 H Anion Gap 11 Blood Urea Nitrogen 42 H Creatinine 2.63 H Glucose Level 102 Calcium Level 8.4 Phosphorus Level 4.6 Magnesium Level 1.9 Albumin 2.7 L Test 09/17/17 08:06 09/17/17 11:59 09/17/17 13:30 Bedside Glucose 99 190 Ferritin Pending Lactate Dehydrogenase 589 Medications Medications Current Medications Ondansetron HCl (Zofran Inj) 4 mg Q6H PRN IV NAUSEA AND/OR VOMITING Last administered on 09/04/17 13:47; Admin Dose 4 MG; Start 08/25/17 at 08:00 Morphine Sulfate (morphine) 2 mg Q4H PRN IV PAIN Last administered on 09/01/17 20:06; Admin Dose 2 MG; Start 08/25/17 at 08:00 Loratadine (Claritin) 10 mg DAILY PO Last administered on 09/17/17 08:55; Admin Dose 10 MG; Start 08/25/17 at 09:00 Losartan Potassium (Cozaar) 50 mg DAILY PO Last administered on 09/17/17 09:34 ; Admin Dose 50 MG; Start 08/25/17 at 09:00 Miscellaneous Information 1 ea NOTE XX ; Start 08/25/17 at 14:00 Glucose (Glutose) 15 gm Q15M PRN PO DECREASED GLUCOSE; Start 08/25/17 at 14:00 Glucose (Glutose) 22.5 gm Q15M PRN PO DECREASED GLUCOSE; Start 08/25/17 at 14: 00 Dextrose (D50w Syringe) 25 ml Q15M PRN IV DECREASED GLUCOSE Last administered on 09/05/17 12:07; Admin Dose 25 ML; Start 08/25/17 at 14:00 Dextrose (D50w Syringe) 50 ml Q15M PRN IV DECREASED GLUCOSE Last administered on 09/03/17 20:53; Admin Dose 50 ML; Start 08/25/17 at 14:00 Glucagon (Glucagen) 1 mg Q15M PRN IM DECREASED GLUCOSE; Start 08/25/17 at 14: 00 Glucose (Glutose) 15 gm Q15M PRN BUCCAL DECREASED GLUCOSE; Start 08/25/17 at 14:00 Acetaminophen (Tylenol Tab) 650 mg Q4H PRN PO PAIN AND OR ELEVATED TEMP Last administered on 08/26/17 17:06; Admin Dose 650 MG; Start 08/25/17 at 20:30 Miscellaneous Medication (Bax Susp) 10 ml TID PO Last administered on 13:26; Admin Dose 10 ML; Start 08/29/17 at 13:00 Morphine Sulfate (morphine) 1 mg Q4H PRN IV LESS THAN 5/10 PAIN Last administered on 09/01/17 13:10; Admin Dose 1 MG; Start 08/30/17 at 20:00 Hydralazine HCl (Apresoline) 10 mg Q6H PRN IV ELEVATED SYSTOLIC BP Last administered on 09/15/17 02:07; Admin Dose 10 MG; Start 09/01/17 at 21:30 Silver Sulfadiazine (Thermazene 1% 400 Gm) 1 applic BID TOP Last administered on 09/17/17 10:42; Admin Dose 1 APPLIC; Start 09/04/17 at 14:00 Hydralazine HCl (Apresoline) 10 mg Q4H PRN IV ELEVATED BLOOD PRESSURE Last administered on 09/16/17 02:33; Admin Dose 10 MG; Start 09/05/17 at 01:00 Heparin Sodium (Porcine) (Heparin (5000 Units/0.5 ml)) 5,000 unit Q8 SC Last administered on 09/17/17 13:32; Admin Dose 5,000 UNIT; Start 09/06/17 at 22:00 Epoetin Kashif (Epogen (Esrd)) 10,000 units TuThSa@17 SC Last administered on 17:37; Admin Dose 10,000 UNITS; Start 09/07/17 at 17:00 Amlodipine Besylate (Norvasc) 10 mg DAILY PO Last administered on 09/17/17 08: 53; Admin Dose 10 MG; Start 09/08/17 at 09:00 Potassium Chloride (Klor-Con 20) 20 meq DAILY PO Last administered on 08:55; Admin Dose 20 MEQ; Start 09/10/17 at 09:00 Bisoprolol Fumarate (Zebeta) 15 mg DAILY PO Last administered on 09/17/17 09: 30; Admin Dose 15 MG; Start 09/11/17 at 09:00 Insulin Glargine (Lantus) 13 unit QHS SC Last administered on 09/16/17 21:05; Admin Dose 13 UNIT; Start 09/11/17 at 21:00 Hydralazine HCl (Apresoline) 50 mg TID PO Last administered on 09/17/17 13:29 ; Admin Dose 50 MG; Start 09/15/17 at 13:00 Nystatin (Nystatin Susp) 5 ml QID PO Last administered on 09/17/17 13:27; Admin Dose 5 ML; Start 09/15/17 at 17:00 Diagnostic Test (Pha) (Accu-Chek) 1 02 XX ; Start 09/16/17 at 02:00 JUAN CARLOS THURMAN Sep 17, 2017 14:38
--- NOTE | 2017-09-17 15:40 | CONS ---
Date/Time of Note Date/Time of Note DATE: 09/17/17 TIME: 15:39 Consult Date/Type/Reason Admit Date/Time Aug 24, 2017 at 19:05 Initial Consult Date 08/31/17 Type of Consultation: Pulmonary Ordering Provider: GIA DUMONT Subjective Patient remains comfortable this morning. Objective Vital Signs Date Time Temp Pulse Resp B/P Pulse Ox O2 Delivery O2 Flow Rate FiO2 09/17/17 14:18 99.4 86 16 144/66 100 09/17/17 13:37 Nasal Cannula 2.0 09/14/17 16:55 28 Intake and Output 09/16/17 09/16/17 09/17/17 15:00 23:00 07:00 Intake Total 860 ml 470 ml Output Total 1150 ml 930 ml Balance -290 ml -460 ml Exam GENERAL: Obese lady comfortable at rest. VITAL SIGNS: per chart NECK: Supple. No JVD or lymphadenopathy. CARDIAC EXAM: S1, S2. No added sounds or murmurs. CHEST: Diminished air entry both lung bases. ABDOMEN: Soft, nontender. No guarding or rebound. EXTREMITIES: No cyanosis, clubbing or edema. NEUROLOGIC: Generalized weakness. No focal deficits. Results/Medications Result Diagram: 09/17/17 0507 09/17/17 0507 Results 24 hrs Laboratory Tests Test 09/16/17 17:33 09/16/17 20:59 09/17/17 01:08 09/17/17 05:07 Bedside Glucose 137 202 139 White Blood Count 13.0 H Red Blood Count 2.68 L Hemoglobin 7.7 L Hematocrit 25.0 L Mean Corpuscular Volume 93.3 Mean Corpuscular Hemoglobin 28.7 L Mean Corpuscular Hemoglobin Concent 30.8 L Red Cell Distribution Width 18.2 H Platelet Count 440 H Mean Platelet Volume 9.6 Neutrophils % 64.0 Lymphocytes % 11.6 L Monocytes % 21.7 H Eosinophils % 0.2 Basophils % 0.4 Nucleated Red Blood Cells % 0.0 Neutrophils # 8.4 H Lymphocytes # 1.5 Monocytes # 2.8 H Eosinophils # 0.0 Basophils # 0.1 Nucleated Red Blood Cells # 0.0 Sodium Level 136 Potassium Level 3.6 Chloride Level 95 L Carbon Dioxide Level 34 H Anion Gap 11 Blood Urea Nitrogen 42 H Creatinine 2.63 H Glucose Level 102 Calcium Level 8.4 Phosphorus Level 4.6 Magnesium Level 1.9 Albumin 2.7 L Test 09/17/17 08:06 09/17/17 11:59 09/17/17 13:30 09/17/17 13:32 Bedside Glucose 99 190 Ferritin Pending Lactate Dehydrogenase 589 Iron Level 13 L Total Iron Binding Capacity 159 L Percent Iron Saturation 8 L Medications Current Medications Ondansetron HCl (Zofran Inj) 4 mg Q6H PRN IV NAUSEA AND/OR VOMITING Last administered on 09/04/17 13:47; Admin Dose 4 MG; Start 08/25/17 at 08:00 Morphine Sulfate (morphine) 2 mg Q4H PRN IV PAIN Last administered on 09/01/17 20:06; Admin Dose 2 MG; Start 08/25/17 at 08:00 Loratadine (Claritin) 10 mg DAILY PO Last administered on 09/17/17 08:55; Admin Dose 10 MG; Start 08/25/17 at 09:00 Losartan Potassium (Cozaar) 50 mg DAILY PO Last administered on 09/17/17 09:34 ; Admin Dose 50 MG; Start 08/25/17 at 09:00 Miscellaneous Information 1 ea NOTE XX ; Start 08/25/17 at 14:00 Glucose (Glutose) 15 gm Q15M PRN PO DECREASED GLUCOSE; Start 08/25/17 at 14:00 Glucose (Glutose) 22.5 gm Q15M PRN PO DECREASED GLUCOSE; Start 08/25/17 at 14: 00 Dextrose (D50w Syringe) 25 ml Q15M PRN IV DECREASED GLUCOSE Last administered on 09/05/17 12:07; Admin Dose 25 ML; Start 08/25/17 at 14:00 Dextrose (D50w Syringe) 50 ml Q15M PRN IV DECREASED GLUCOSE Last administered on 09/03/17 20:53; Admin Dose 50 ML; Start 08/25/17 at 14:00 Glucagon (Glucagen) 1 mg Q15M PRN IM DECREASED GLUCOSE; Start 08/25/17 at 14: 00 Glucose (Glutose) 15 gm Q15M PRN BUCCAL DECREASED GLUCOSE; Start 08/25/17 at 14:00 Acetaminophen (Tylenol Tab) 650 mg Q4H PRN PO PAIN AND OR ELEVATED TEMP Last administered on 08/26/17 17:06; Admin Dose 650 MG; Start 08/25/17 at 20:30 Miscellaneous Medication (Bax Susp) 10 ml TID PO Last administered on 13:26; Admin Dose 10 ML; Start 08/29/17 at 13:00 Morphine Sulfate (morphine) 1 mg Q4H PRN IV LESS THAN 5/10 PAIN Last administered on 09/01/17 13:10; Admin Dose 1 MG; Start 08/30/17 at 20:00 Hydralazine HCl (Apresoline) 10 mg Q6H PRN IV ELEVATED SYSTOLIC BP Last administered on 09/15/17 02:07; Admin Dose 10 MG; Start 09/01/17 at 21:30 Silver Sulfadiazine (Thermazene 1% 400 Gm) 1 applic BID TOP Last administered on 09/17/17 10:42; Admin Dose 1 APPLIC; Start 09/04/17 at 14:00 Hydralazine HCl (Apresoline) 10 mg Q4H PRN IV ELEVATED BLOOD PRESSURE Last administered on 09/16/17 02:33; Admin Dose 10 MG; Start 09/05/17 at 01:00 Heparin Sodium (Porcine) (Heparin (5000 Units/0.5 ml)) 5,000 unit Q8 SC Last administered on 09/17/17 13:32; Admin Dose 5,000 UNIT; Start 09/06/17 at 22:00 Epoetin Kashif (Epogen (Esrd)) 10,000 units TuThSa@17 SC Last administered on 17:37; Admin Dose 10,000 UNITS; Start 09/07/17 at 17:00 Amlodipine Besylate (Norvasc) 10 mg DAILY PO Last administered on 09/17/17 08: 53; Admin Dose 10 MG; Start 09/08/17 at 09:00 Potassium Chloride (Klor-Con 20) 20 meq DAILY PO Last administered on 08:55; Admin Dose 20 MEQ; Start 09/10/17 at 09:00 Bisoprolol Fumarate (Zebeta) 15 mg DAILY PO Last administered on 09/17/17 09: 30; Admin Dose 15 MG; Start 09/11/17 at 09:00 Insulin Glargine (Lantus) 13 unit QHS SC Last administered on 09/16/17 21:05; Admin Dose 13 UNIT; Start 09/11/17 at 21:00 Hydralazine HCl (Apresoline) 50 mg TID PO Last administered on 09/17/17 13:29 ; Admin Dose 50 MG; Start 09/15/17 at 13:00 Nystatin (Nystatin Susp) 5 ml QID PO Last administered on 09/17/17 13:27; Admin Dose 5 ML; Start 09/15/17 at 17:00 Diagnostic Test (Pha) (Accu-Chek) 02 XX ; Start 09/16/17 at 02:00 Assessment/Plan Chief Complaint/Hosp Course IMPRESSION: 1. Hypoxemic respiratory insufficiency in the setting of hypertension, chronic kidney disease and volume overload. 2. Chest x-ray better today. Clinically improved. 3. Persistent infiltrates concerning for inflammatory versus infectious process. Persistent low-grade leukocytosis 4. Pancytopenia resolved likely secondary to methotrexate. Reticulocytosis noted RECOMMENDATIONS: 1. Continue antibiotics, findings noted. 2. renal recommendations. Continue diuresis as tolerated 3. Cardiac recommendations 4. Aspiration precautions 5. Decrease FiO2 as tolerated PT evaluation 6. Hematology recommendations Problems: TANI TOLEDO MD, [facility] Sep 17, 2017 15:40
--- NOTE | 2017-09-17 17:05 | PN ---
Date/Time of Note Date/Time of Note DATE: 09/17/17 TIME: 17:03 Assessment/Plan Lines/Catheters IV Catheter Type (from [facility]): Saline Lock Reina in Place (from [facility]): Yes Assessment/Plan Chief Complaint/Hosp Course 1. Left lower extremity cellulitis and edema with history of diabetes;CT lower extremity without abscess: much improved -continue supportive measures -elevate above heart level 2. Leukocytosis, without fevers, with history of leukopenia: on prednisone. Cont to improve -abx per ID 3. Diabetes -Nutrition medication optimization -Encourage weight loss 4. Hypertension -Nutrition medication optimization -Encourage weight loss 5. Chronic kidney disease: Cr up (likely 2/2 diuresis) -Judicious fluid management -Avoid nephrotoxic agents 6. Bilateral ground glass changes on CT -s/p abx -pulm toilette 7. Hypoalbuminemia with hypocalcemia -Nutritional optimization 8. Anemia: no acute bleed noted -monitor -transfuse as needed 9. Electrolyte imbalance -optimize lytes 10. Pl Effusion: -diuresis -supportive Thank you. Patient seen and examined in collaboration with Dr. William Russ. Problems: Subjective 24 Hr Interval Summary No acute events overnight. Appears comfortable. No fevers, chills, sob, congested cough, cp, palpitations, walsh, dizziness, n/v/d/dysuria. Exam/Review of Systems Vital Signs Vitals Vital Signs Date Time Temp Pulse Resp B/P Pulse Ox O2 Delivery O2 Flow Rate FiO2 09/17/17 17:00 88 20 100 Nasal Cannula 2.0 09/17/17 14:18 99.4 144/66 09/14/17 16:55 28 Intake and Output 09/16/17 09/16/17 09/17/17 15:00 23:00 07:00 Intake Total 860 ml 470 ml Output Total 1150 ml 930 ml Balance -290 ml -460 ml Exam Free Text/Dictation Constitutional: obese, other (Awake), No distress Psych: nl mood/affect, No anxiety Head: atraumatic, normocephalic Eyes: EOMI, PERRL, nl conjunctiva, No icteric ENMT: mucosa pink and dry, nl external ears & nose, nl lips & teeth Neck: non-tender, supple, No jvd Respiratory: sob w exertion improved, wheezing improved. No congested cough Cardiovascular: no edema, regular rate and rhythm Gastrointestinal: non-tender, soft, No rebound or guarding Musculoskeletal: joint tenderness, No nl extremities to inspection Extremities: no edema, normal pulses, tenderness, No calf tenderness Neurological: nl mental status, nl strength Skin: rash or lesions (LLE improved color), No diaphoresis, No nl turgor Lymph: nl lymph nodes, nontender Results Result Diagram: 09/17/17 0507 09/17/17 0507 EDMUND KINCAID NP Sep 17, 2017 17:05
[2017-09-17] MEDS: FUROSEMIDE 20 MG TAB PO SCH (17:56)
[2017-09-17 20:00] VITALS: BP 139/65; RESP 18
[2017-09-17] MEDS: INSULIN GLARGINE [LANtus] 3 ML PEN SC SCH (21:39)
[2017-09-18] VITALS (8 sets, daily range): BP systolic 125–144; BP diastolic 50–67; PULSE 71–95; RESP 16–18
[2017-09-18] MEDS: ALBUTEROL/IPRATROPIUM (NEB) 3 ML AMP HHN SCH ×6 (00:44→20:44)
[2017-09-18] MEDS: ACCU-CHEK XX SCH ×5 (02:00→21:00)
[2017-09-18] MEDS: ACETAMINOPHEN 325 MG TAB PO PRN ×2 (02:37→18:17)
[2017-09-18] MEDS: FUROSEMIDE 20 MG TAB PO SCH ×2 (06:51→17:33)
[2017-09-18] MEDS: HEPARIN 5,000 UNIT/0.5 ML VIAL SC SCH ×3 (06:56→21:55)
[2017-09-18] MEDS: INSULIN ASPART [NOVOLOG] 3 ML PEN SC SCH ×4 (08:15→21:53)
--- NOTE | 2017-09-18 08:54 | RADRPT ---
PROCEDURE: XR Chest. CLINICAL INDICATION: Fever TECHNIQUE: Single frontal view of the chest was obtained COMPARISON: 09/13/2017 FINDINGS: Decreased small bilateral pleural effusions. No pneumothorax. Improving but persistent patchy bilateral diffuse heterogeneous air space opacities. Stable enlarged cardiomediastinal silhouette. No acute osseous abnormality. IMPRESSION: Improving bilateral heterogeneous air space opacities and interval decrease in size of the small prema ateral pleural effusions. Otherwise, no convincing interval change compared to chest radiograph date d 09/13/2017. RPTAT: EE Monalisa Bartholomew Physician Date Time Electronically viewed and signed by Physician Ling on 09/18/2017 08:53 /
[2017-09-18] MEDS: NYSTATIN SUSP 5 ML CUP PO SCH ×4 (09:41→21:50)
[2017-09-18] MEDS: DIPHENHYD/MYLANTA/LIDO (PO SYG) PO SCH ×3 (09:41→21:00)
[2017-09-18] MEDS: LORATADINE 10 MG TAB PO SCH (09:42)
[2017-09-18] MEDS: POTASSIUM CHLORIDE (SR) 20 MEQ TAB PO SCH (09:42)
[2017-09-18] MEDS: LOSARTAN 50 MG TAB PO SCH (09:48)
[2017-09-18] MEDS: BISOPROLOL 5 MG TAB PO SCH (09:48)
[2017-09-18] MEDS: AMLODIPINE 10 MG TAB PO SCH (09:49)
[2017-09-18] MEDS: SILVER SULFADIAZINE 1% 400 GM CR TOP SCH ×2 (09:50→21:56)
--- NOTE | 2017-09-18 11:04 | PN ---
Date/Time of Note Date/Time of Note DATE: 09/18/17 TIME: 10:56 Assessment/Plan VTE Prophylaxis VTE Prophylaxis Intervention: heparin Lines/Catheters IV Catheter Type (from Nrs): Saline Lock Urinary Cath still in place: Yes Reason Cath still needed: other (indicate) (per primary) Assessment/Plan Chief Complaint/Hosp Course 61 yo woman admitted for cellulitis of lower left leg. History of diabetes, hypertension, obesity, azotemia, abnormal liver studies and methotrexate administration for unclear diagnosis ( leg pain). Leucopenia has resolved and the leucocytosis due to Neupogen is almost all gone. Anemia still noted. No new hematologic interventions. Encourage nutrition and ambulation. Would not resume methotrexate. Problems: Assessment/Plan Epogen is being continued for anemia due to azotemia. No new hematologic suggestions. It will likely take several weeks for her marrow to make RBC's. Continue to encourage nutrition. Subjective 24 Hr Interval Summary Free Text/Dictation Pt sleeping comfortably Exam/Review of Systems Vital Signs Vitals Vital Signs Date Time Temp Pulse Resp B/P Pulse Ox O2 Delivery O2 Flow Rate FiO2 09/18/17 09:52 77 143/67 09/18/17 08:28 2.0 28 09/18/17 08:28 Nasal Cannula 09/18/17 07:23 97.4 16 100 Intake and Output 09/17/17 09/17/17 09/18/17 15:00 23:00 07:00 Intake Total 837 ml 480 ml Output Total 1000 ml 525 ml Balance -163 ml -45 ml Exam Not examined today as she is sleeping. Results Result Diagram: 09/17/17 0507 09/18/17 0531 Results 24 hrs Laboratory Tests Test 09/17/17 11:59 09/17/17 13:30 09/17/17 13:32 09/17/17 17:17 Bedside Glucose 190 144 Ferritin 1100.0 H Lactate Dehydrogenase 589 Iron Level 13 L Total Iron Binding Capacity 159 L Percent Iron Saturation 8 L Test 09/17/17 21:10 09/18/17 02:35 09/18/17 05:31 09/18/17 08:07 Bedside Glucose 199 91 68 L Sodium Level 136 Potassium Level 4.2 Chloride Level 97 Carbon Dioxide Level 30 Anion Gap 13 Blood Urea Nitrogen 40 H Creatinine 2.83 H Glucose Level 61 #L Calcium Level 8.4 Phosphorus Level 4.6 Magnesium Level 2.0 Albumin 3.0 L Test 09/18/17 08:30 09/18/17 08:48 Bedside Glucose 98 106 Medications Medications Current Medications Ondansetron HCl (Zofran Inj) 4 mg Q6H PRN IV NAUSEA AND/OR VOMITING Last administered on 09/04/17 13:47; Admin Dose 4 MG; Start 08/25/17 at 08:00 Morphine Sulfate (morphine) 2 mg Q4H PRN IV PAIN Last administered on 09/01/17 20:06; Admin Dose 2 MG; Start 08/25/17 at 08:00 Loratadine (Claritin) 10 mg DAILY PO Last administered on 09/18/17 09:42; Admin Dose 10 MG; Start 08/25/17 at 09:00 Losartan Potassium (Cozaar) 50 mg DAILY PO Last administered on 09/18/17 09:48 ; Admin Dose 50 MG; Start 08/25/17 at 09:00 Miscellaneous Information 1 ea NOTE XX ; Start 08/25/17 at 14:00 Glucose (Glutose) 15 gm Q15M PRN PO DECREASED GLUCOSE; Start 08/25/17 at 14:00 Glucose (Glutose) 22.5 gm Q15M PRN PO DECREASED GLUCOSE; Start 08/25/17 at 14: 00 Dextrose (D50w Syringe) 25 ml Q15M PRN IV DECREASED GLUCOSE Last administered on 09/05/17 12:07; Admin Dose 25 ML; Start 08/25/17 at 14:00 Dextrose (D50w Syringe) 50 ml Q15M PRN IV DECREASED GLUCOSE Last administered on 09/03/17 20:53; Admin Dose 50 ML; Start 08/25/17 at 14:00 Glucagon (Glucagen) 1 mg Q15M PRN IM DECREASED GLUCOSE; Start 08/25/17 at 14: 00 Glucose (Glutose) 15 gm Q15M PRN BUCCAL DECREASED GLUCOSE; Start 08/25/17 at 14:00 Acetaminophen (Tylenol Tab) 650 mg Q4H PRN PO PAIN AND OR ELEVATED TEMP Last administered on 09/18/17 02:37; Admin Dose 650 MG; Start 08/25/17 at 20:30 Miscellaneous Medication (Bax Susp) 10 ml TID PO Last administered on 09:41; Admin Dose 10 ML; Start 08/29/17 at 13:00 Morphine Sulfate (morphine) 1 mg Q4H PRN IV LESS THAN 5/10 PAIN Last administered on 09/01/17 13:10; Admin Dose 1 MG; Start 08/30/17 at 20:00 Hydralazine HCl (Apresoline) 10 mg Q6H PRN IV ELEVATED SYSTOLIC BP Last administered on 09/15/17 02:07; Admin Dose 10 MG; Start 09/01/17 at 21:30 Silver Sulfadiazine (Thermazene 1% 400 Gm) 1 applic BID TOP Last administered on 09/18/17 09:50; Admin Dose 1 APPLIC; Start 09/04/17 at 14:00 Hydralazine HCl (Apresoline) 10 mg Q4H PRN IV ELEVATED BLOOD PRESSURE Last administered on 09/16/17 02:33; Admin Dose 10 MG; Start 09/05/17 at 01:00 Heparin Sodium (Porcine) (Heparin (5000 Units/0.5 ml)) 5,000 unit Q8 SC Last administered on 09/18/17 06:56; Admin Dose 5,000 UNIT; Start 09/06/17 at 22:00 Epoetin Kashif (Epogen (Esrd)) 10,000 units TuThSa@17 SC Last administered on 17:37; Admin Dose 10,000 UNITS; Start 09/07/17 at 17:00 Amlodipine Besylate (Norvasc) 10 mg DAILY PO Last administered on 09/18/17 09: 49; Admin Dose 10 MG; Start 09/08/17 at 09:00 Potassium Chloride (Klor-Con 20) 20 meq DAILY PO Last administered on 09:42; Admin Dose 20 MEQ; Start 09/10/17 at 09:00 Bisoprolol Fumarate (Zebeta) 15 mg DAILY PO Last administered on 09/18/17 09: 48; Admin Dose 15 MG; Start 09/11/17 at 09:00 Insulin Glargine (Lantus) 13 unit QHS SC Last administered on 09/17/17 21:39; Admin Dose 13 UNIT; Start 09/11/17 at 21:00 Hydralazine HCl (Apresoline) 50 mg TID PO Last administered on 09/18/17 09:49 ; Admin Dose 50 MG; Start 09/15/17 at 13:00 Nystatin (Nystatin Susp) 5 ml QID PO Last administered on 09/18/17 09:41; Admin Dose 5 ML; Start 09/15/17 at 17:00 Diagnostic Test (Pha) (Accu-Chek) 1 ea 02 XX ; Start 09/16/17 at 02:00 SARY DUQUE MD Sep 18, 2017 11:04
--- NOTE | 2017-09-18 13:09 | PN ---
Date/Time of Note Date/Time of Note DATE: 09/18/17 TIME: 13:05 Assessment/Plan VTE Prophylaxis VTE Prophylaxis Intervention: SCD's Lines/Catheters IV Catheter Type (from Nrsg): Saline Lock Urinary Cath still in place: Yes Reason Cath still needed: skin wounds contaminated by urine Assessment/Plan Assessment/Plan 1. Acute respiratory distress secondary to Bilateral Pneumonia- improving - Patient found to have b/l PNA on initial chest xray - Doing well on 2L NC and saturating >90%. Will continue to wean off supplemental O2 - Completed course of antibiotics - Pulmonology consultation placed and appreciated recommendations - On Neb treatments - Completed course of steroids - Continue on Lasix 2. HTN - Bp more controlled after hydralazine increase - Continue monitoring and adjust as needed 3. Pulmonary edema- improving - Cardiology on board and recommendations appreciated - On Lasix which has been effective - patient saturating 99% on 2L. will wean 4. Acute on chronic diastolic congestive heart failure - continue lasix - Cardiology on board and recommendations appreciated - ECHO results noted 5. Left lower extremity cellulitis- resolving - ID and Surgery on board. Recommendations appreciated - Antibiotic per ID - CT LE showed cellulitis and no evidence of osteomyelitis. Xray LE also performed and no osteomyelitis appreciated. -gen surg/vascular surg do not feel any acute intervention is needed 6. Mucositis 2/2 methotrexate use- improved - diphen/lido/mal oral solution ordered. Morphine if pain remain intolerable for PO intake - Tolerating soft mech diet 7. Pancytopenia- improved - now leukocytosis, possible due to filgrastim per heme/onc - Hgb still low. 7.7, but no need for transfusions at this time. Will transfuse if <7 - Hematology on board and recommendations appreciated. - s/p multiple blood transfusions and plt transfusions. 8. Leukocytosis- trending down - Continue to monitor. May be secondary to Neupogen 9. Neutropenia- resolved - WBC downtrending now <15 and Neupogen no longer on board - Will continue to monitor - Heme on board and recommendations appreciated 10. BK vs BK on CKD - Nephrology on board and recommendations appreciated. - Cr starting to rise again - Monitor UOP - HIV negative, KASSY negative 11. Hypokalemia - K 4.2. stable 12. Eosinophilia - normalized after d/c sulfasalazine and mtx 13. Vascular insufficiency - Vascular surgery on board and recommendations appreciated. No current vascular intervention as the patient has not developed any gangrene or ulcers - Will need to follow up as outpatient due to LE atherosclerosis 14. Disposition - awaiting SNF placement Subjective 24 Hr Interval Summary Free Text/Dictation patient resting comfortably. Had hypoglycemia this am but improved after given juice. No acute overnight events. Exam/Review of Systems Vital Signs Vitals Vital Signs Date Time Temp Pulse Resp B/P Pulse Ox O2 Delivery O2 Flow Rate FiO2 09/18/17 13:02 73 18 99 Nasal Cannula 2.0 09/18/17 13:02 28 09/18/17 12:27 133/62 09/18/17 07:23 97.4 Intake and Output 09/17/17 09/17/17 09/18/17 15:00 23:00 07:00 Intake Total 837 ml 480 ml Output Total 1000 ml 525 ml Balance -163 ml -45 ml Exam General: Patient is resting comfortably and in NAD Head: Normocephalic atraumatic Eyes: EOMI, pupils reactive to light Neck: Supple, nontender, midline Respiratory: crackles bases, diminished breath sounds, no wheezing Cardiovascular: regular rate, no obvious murmurs Gastrointestinal: non-tender to palpation, bowel sounds heard. soft, nondistended Neurological: Moves all extremities spontaneously Skin: LLE dryness of skin. no tenderness Results Result Diagram: 09/17/17 0507 09/18/17 0531 Results 24 hrs Laboratory Tests Test 09/17/17 13:30 09/17/17 13:32 09/17/17 17:17 09/17/17 21:10 Ferritin 1100.0 H Lactate Dehydrogenase 589 Iron Level 13 L Total Iron Binding Capacity 159 L Percent Iron Saturation 8 L Bedside Glucose 144 199 Test 09/18/17 02:35 09/18/17 05:31 09/18/17 08:07 09/18/17 08:30 Bedside Glucose 91 68 L 98 Sodium Level 136 Potassium Level 4.2 Chloride Level 97 Carbon Dioxide Level 30 Anion Gap 13 Blood Urea Nitrogen 40 H Creatinine 2.83 H Glucose Level 61 #L Calcium Level 8.4 Phosphorus Level 4.6 Magnesium Level 2.0 Albumin 3.0 L Test 09/18/17 08:48 09/18/17 12:19 Bedside Glucose 106 167 Medications Medications Current Medications Ondansetron HCl (Zofran Inj) 4 mg Q6H PRN IV NAUSEA AND/OR VOMITING Last administered on 09/04/17 13:47; Admin Dose 4 MG; Start 08/25/17 at 08:00 Morphine Sulfate (morphine) 2 mg Q4H PRN IV 5-10/10 PAIN Last administered on 09/01/17 20:06; Admin Dose 2 MG; Start 08/25/17 at 08:00 Loratadine (Claritin) 10 mg DAILY PO Last administered on 09/18/17 09:42; Admin Dose 10 MG; Start 08/25/17 at 09:00 Losartan Potassium (Cozaar) 50 mg DAILY PO Last administered on 09/18/17 09:48 ; Admin Dose 50 MG; Start 08/25/17 at 09:00 Miscellaneous Information 1 ea NOTE XX ; Start 08/25/17 at 14:00 Glucose (Glutose) 15 gm Q15M PRN PO DECREASED GLUCOSE; Start 08/25/17 at 14:00 Glucose (Glutose) 22.5 gm Q15M PRN PO DECREASED GLUCOSE; Start 08/25/17 at 14: 00 Dextrose (D50w Syringe) 25 ml Q15M PRN IV DECREASED GLUCOSE Last administered on 09/05/17 12:07; Admin Dose 25 ML; Start 08/25/17 at 14:00 Dextrose (D50w Syringe) 50 ml Q15M PRN IV DECREASED GLUCOSE Last administered on 09/03/17 20:53; Admin Dose 50 ML; Start 08/25/17 at 14:00 Glucagon (Glucagen) 1 mg Q15M PRN IM DECREASED GLUCOSE; Start 08/25/17 at 14: 00 Glucose (Glutose) 15 gm Q15M PRN BUCCAL DECREASED GLUCOSE; Start 08/25/17 at 14:00 Acetaminophen (Tylenol Tab) 650 mg Q4H PRN PO PAIN AND OR ELEVATED TEMP Last administered on 09/18/17 02:37; Admin Dose 650 MG; Start 08/25/17 at 20:30 Miscellaneous Medication (Bax Susp) 10 ml TID PO Last administered on 12:25; Admin Dose 10 ML; Start 08/29/17 at 13:00 Morphine Sulfate (morphine) 1 mg Q4H PRN IV LESS THAN 5/10 PAIN Last administered on 09/01/17 13:10; Admin Dose 1 MG; Start 08/30/17 at 20:00 Hydralazine HCl (Apresoline) 10 mg Q6H PRN IV ELEVATED SYSTOLIC BP Last administered on 09/15/17 02:07; Admin Dose 10 MG; Start 09/01/17 at 21:30 Silver Sulfadiazine (Thermazene 1% 400 Gm) 1 applic BID TOP Last administered on 09/18/17 09:50; Admin Dose 1 APPLIC; Start 09/04/17 at 14:00 Hydralazine HCl (Apresoline) 10 mg Q4H PRN IV ELEVATED BLOOD PRESSURE Last administered on 09/16/17 02:33; Admin Dose 10 MG; Start 09/05/17 at 01:00 Heparin Sodium (Porcine) (Heparin (5000 Units/0.5 ml)) 5,000 unit Q8 SC Last administered on 09/18/17 06:56; Admin Dose 5,000 UNIT; Start 09/06/17 at 22:00 Epoetin Kashif (Epogen (Esrd)) 10,000 units TuThSa@17 SC Last administered on 17:37; Admin Dose 10,000 UNITS; Start 09/07/17 at 17:00 Amlodipine Besylate (Norvasc) 10 mg DAILY PO Last administered on 09/18/17 09: 49; Admin Dose 10 MG; Start 09/08/17 at 09:00 Potassium Chloride (Klor-Con 20) 20 meq DAILY PO Last administered on 09:42; Admin Dose 20 MEQ; Start 09/10/17 at 09:00 Bisoprolol Fumarate (Zebeta) 15 mg DAILY PO Last administered on 09/18/17 09: 48; Admin Dose 15 MG; Start 09/11/17 at 09:00 Insulin Glargine (Lantus) 13 unit QHS SC Last administered on 09/17/17 21:39; Admin Dose 13 UNIT; Start 09/11/17 at 21:00 Hydralazine HCl (Apresoline) 50 mg TID PO Last administered on 09/18/17 12:25 ; Admin Dose 50 MG; Start 09/15/17 at 13:00 Nystatin (Nystatin Susp) 5 ml QID PO Last administered on 09/18/17 12:25; Admin Dose 5 ML; Start 09/15/17 at 17:00 Diagnostic Test (Pha) (Accu-Chek) 1 ea 02 XX ; Start 09/16/17 at 02:00 JOANA BARKLEY MD Sep 18, 2017 13:09
--- NOTE | 2017-09-18 13:19 | PN ---
Date/Time of Note Date/Time of Note DATE: 09/18/17 TIME: 13:18 Assessment/Plan VTE Prophylaxis VTE Prophylaxis Intervention: SCD's Lines/Catheters IV Catheter Type (from Nrs): Saline Lock Urinary Cath still in place: Yes Reason Cath still needed: urinary retention Assessment/Plan Assessment/Plan Acute decompensated diastolic congestive heart failure Preserved ejection fraction Hypertension Mild to moderate aortic valve stenosis Volume overload Sepsis Pneumonia Cellulitis Acute on chronic kidney disease -Overall respiratory status continues to improve, continue diuretics as per our nephrology colleagues. Antibiotics as per infectious disease. Blood pressure trend has improved, DC planning.. Subjective 24 Hr Interval Summary Free Text/Dictation The patient with no cahnge Exam/Review of Systems Vital Signs Vitals Vital Signs Date Time Temp Pulse Resp B/P Pulse Ox O2 Delivery O2 Flow Rate FiO2 09/18/17 13:02 73 18 99 Nasal Cannula 2.0 09/18/17 13:02 28 09/18/17 12:27 133/62 09/18/17 07:23 97.4 Intake and Output 09/17/17 09/17/17 09/18/17 15:00 23:00 07:00 Intake Total 837 ml 480 ml Output Total 1000 ml 525 ml Balance -163 ml -45 ml Results Result Diagram: 09/17/17 0507 09/18/17 0531 Results 24 hrs Laboratory Tests Test 09/17/17 13:30 09/17/17 13:32 09/17/17 17:17 09/17/17 21:10 Ferritin 1100.0 H Lactate Dehydrogenase 589 Iron Level 13 L Total Iron Binding Capacity 159 L Percent Iron Saturation 8 L Bedside Glucose 144 199 Test 09/18/17 02:35 09/18/17 05:31 09/18/17 08:07 09/18/17 08:30 Bedside Glucose 91 68 L 98 Sodium Level 136 Potassium Level 4.2 Chloride Level 97 Carbon Dioxide Level 30 Anion Gap 13 Blood Urea Nitrogen 40 H Creatinine 2.83 H Glucose Level 61 #L Calcium Level 8.4 Phosphorus Level 4.6 Magnesium Level 2.0 Albumin 3.0 L Test 09/18/17 08:48 09/18/17 12:19 Bedside Glucose 106 167 Medications Medications Current Medications Ondansetron HCl (Zofran Inj) 4 mg Q6H PRN IV NAUSEA AND/OR VOMITING Last administered on 09/04/17t 13:47; Admin Dose 4 MG; Start 08/25/17 at 08:00 Morphine Sulfate (morphine) 2 mg Q4H PRN IV 5-1010 PAIN Last administered on 09/01/17 20:06; Admin Dose 2 MG; Start 08/25/17 at 08:00 Loratadine (Claritin) 10 mg DAILY PO Last administered on 09/18/17 09:42; Admin Dose 10 MG; Start 08/25/17 at 09:00 Losartan Potassium (Cozaar) 50 mg DAILY PO Last administered on 09/18/17 09:48 ; Admin Dose 50 MG; Start 08/25/17 at 09:00 Miscellaneous Information 1 ea NOTE XX ; Start 08/25/17 at 14:00 Glucose (Glutose) 15 gm Q15M PRN PO DECREASED GLUCOSE; Start 08/25/17 at 14:00 Glucose (Glutose) 22.5 gm Q15M PRN PO DECREASED GLUCOSE; Start 08/25/17 at 14: 00 Dextrose (D50w Syringe) 25 ml Q15M PRN IV DECREASED GLUCOSE Last administered on 09/05/17 12:07; Admin Dose 25 ML; Start 08/25/17 at 14:00 Dextrose (D50w Syringe) 50 ml Q15M PRN IV DECREASED GLUCOSE Last administered on 09/03/17 20:53; Admin Dose 50 ML; Start 08/25/17 at 14:00 Glucagon (Glucagen) 1 mg Q15M PRN IM DECREASED GLUCOSE; Start 08/25/17 at 14: 00 Glucose (Glutose) 15 gm Q15M PRN BUCCAL DECREASED GLUCOSE; Start 08/25/17 at 14:00 Acetaminophen (Tylenol Tab) 650 mg Q4H PRN PO PAIN AND OR ELEVATED TEMP Last administered on 09/18/17 02:37; Admin Dose 650 MG; Start 08/25/17 at 20:30 Miscellaneous Medication (Bax Susp) 10 ml TID PO Last administered on 12:25; Admin Dose 10 ML; Start 08/29/17 at 13:00 Morphine Sulfate (morphine) 1 mg Q4H PRN IV LESS THAN 5/10 PAIN Last administered on 09/01/17 13:10; Admin Dose 1 MG; Start 08/30/17 at 20:00 Hydralazine HCl (Apresoline) 10 mg Q6H PRN IV ELEVATED SYSTOLIC BP Last administered on 09/15/17 02:07; Admin Dose 10 MG; Start 09/01/17 at 21:30 Silver Sulfadiazine (Thermazene 1% 400 Gm) 1 applic BID TOP Last administered on 09/18/17 09:50; Admin Dose 1 APPLIC; Start 09/04/17 at 14:00 Hydralazine HCl (Apresoline) 10 mg Q4H PRN IV ELEVATED BLOOD PRESSURE Last administered on 09/16/17 02:33; Admin Dose 10 MG; Start 09/05/17 at 01:00 Heparin Sodium (Porcine) (Heparin (5000 Units/0.5 ml)) 5,000 unit Q8 SC Last administered on 09/18/17 06:56; Admin Dose 5,000 UNIT; Start 09/06/17 at 22:00 Epoetin Kashif (Epogen (Esrd)) 10,000 units TuThSa@17 SC Last administered on 17:37; Admin Dose 10,000 UNITS; Start 09/07/17 at 17:00 Amlodipine Besylate (Norvasc) 10 mg DAILY PO Last administered on 09/18/17 09: 49; Admin Dose 10 MG; Start 09/08/17 at 09:00 Potassium Chloride (Klor-Con 20) 20 meq DAILY PO Last administered on 09:42; Admin Dose 20 MEQ; Start 09/10/17 at 09:00 Bisoprolol Fumarate (Zebeta) 15 mg DAILY PO Last administered on 09/18/17 09: 48; Admin Dose 15 MG; Start 09/11/17 at 09:00 Hydralazine HCl (Apresoline) 50 mg TID PO Last administered on 09/18/17 12:25 ; Admin Dose 50 MG; Start 09/15/17 at 13:00 Nystatin (Nystatin Susp) 5 ml QID PO Last administered on 09/18/17 12:25; Admin Dose 5 ML; Start 09/15/17 at 17:00 Diagnostic Test (Pha) (Accu-Chek) 1 ea 02 XX ; Start 09/16/17 at 02:00 Insulin Glargine (Lantus) 10 unit QHS SC ; Start 09/18/17 at 21:00 HANG MCGARRY MD Sep 18, 2017 13:19
--- NOTE | 2017-09-18 13:49 | CONS ---
Date/Time of Note Date/Time of Note DATE: 09/18/17 TIME: 13:47 Assessment/Plan Assessment/Plan Chief Complaint/Hosp Course 1. acute on-chronic kidney disease with no known baseline could be due to underlying sepsis/meds vs drug induced Cr improved significantly 2 Underlying acute tubular necrosis, possibly sepsis-induced due to cellulitis of the left lower extremity. 3 Likely underlying diabetic nephropathy, underlying hypertensive nephrosclerosis 4 pancytopenia better 5. Hyponatremia, resolved 6. BLE atherosclerosis 7 Nephrotic range proteinuria Problems: Additional Assessment/Plan 1. continue current treatment Consultation Date/Type/Reason Admit Date/Time Aug 24, 2017 at 19:05 Initial Consult Date 08/31/17 Type of Consultation: nephrology Reason for Consultation Dr Alarcon Referring Provider: GIA DUMONT Exam/Review of Systems Vital Signs Vitals Vital Signs Date Time Temp Pulse Resp B/P Pulse Ox O2 Delivery O2 Flow Rate FiO2 09/18/17 13:02 73 18 99 Nasal Cannula 2.0 09/18/17 13:02 28 09/18/17 12:27 133/62 09/18/17 07:23 97.4 Intake and Output 09/17/17 09/17/17 09/18/17 15:00 23:00 07:00 Intake Total 837 ml 480 ml Output Total 1000 ml 525 ml Balance -163 ml -45 ml Exam Constitutional: alert, oriented Cardiovascular: regular rate and rhythm Gastrointestinal: soft Musculoskeletal: swelling Results Result Diagram: 09/17/17 0507 09/18/17 0531 Results 24 hrs Laboratory Tests Test 09/17/17 17:17 09/17/17 21:10 09/18/17 02:35 09/18/17 05:31 Bedside Glucose 144 199 91 Sodium Level 136 Potassium Level 4.2 Chloride Level 97 Carbon Dioxide Level 30 Anion Gap 13 Blood Urea Nitrogen 40 H Creatinine 2.83 H Glucose Level 61 #L Calcium Level 8.4 Phosphorus Level 4.6 Magnesium Level 2.0 Albumin 3.0 L Test 09/18/17 08:07 09/18/17 08:30 09/18/17 08:48 09/18/17 12:19 Bedside Glucose 68 L 98 106 167 Medications Medications Current Medications Ondansetron HCl (Zofran Inj) 4 mg Q6H PRN IV NAUSEA AND/OR VOMITING Last administered on 09/04/17t 13:47; Admin Dose 4 MG; Start 08/25/17 at 08:00 Morphine Sulfate (morphine) 2 mg Q4H PRN IV 5-10/10 PAIN Last administered on 09/01/17 20:06; Admin Dose 2 MG; Start 08/25/17 at 08:00 Loratadine (Claritin) 10 mg DAILY PO Last administered on 09/18/17 09:42; Admin Dose 10 MG; Start 08/25/17 at 09:00 Losartan Potassium (Cozaar) 50 mg DAILY PO Last administered on 09/18/17 09:48 ; Admin Dose 50 MG; Start 08/25/17 at 09:00 Miscellaneous Information 1 ea NOTE XX ; Start 08/25/17 at 14:00 Glucose (Glutose) 15 gm Q15M PRN PO DECREASED GLUCOSE; Start 08/25/17 at 14:00 Glucose (Glutose) 22.5 gm Q15M PRN PO DECREASED GLUCOSE; Start 08/25/17 at 14: 00 Dextrose (D50w Syringe) 25 ml Q15M PRN IV DECREASED GLUCOSE Last administered on 09/05/17 12:07; Admin Dose 25 ML; Start 08/25/17 at 14:00 Dextrose (D50w Syringe) 50 ml Q15M PRN IV DECREASED GLUCOSE Last administered on 09/03/17 20:53; Admin Dose 50 ML; Start 08/25/17 at 14:00 Glucagon (Glucagen) 1 mg Q15M PRN IM DECREASED GLUCOSE; Start 08/25/17 at 14: 00 Glucose (Glutose) 15 gm Q15M PRN BUCCAL DECREASED GLUCOSE; Start 08/25/17 at 14:00 Acetaminophen (Tylenol Tab) 650 mg Q4H PRN PO PAIN AND OR ELEVATED TEMP Last administered on 09/18/17 02:37; Admin Dose 650 MG; Start 08/25/17 at 20:30 Miscellaneous Medication (Bax Susp) 10 ml TID PO Last administered on 12:25; Admin Dose 10 ML; Start 08/29/17 at 13:00 Morphine Sulfate (morphine) 1 mg Q4H PRN IV LESS THAN 5/10 PAIN Last administered on 09/01/17 13:10; Admin Dose 1 MG; Start 08/30/17 at 20:00 Hydralazine HCl (Apresoline) 10 mg Q6H PRN IV ELEVATED SYSTOLIC BP Last administered on 09/15/17 02:07; Admin Dose 10 MG; Start 09/01/17 at 21:30 Silver Sulfadiazine (Thermazene 1% 400 Gm) 1 applic BID TOP Last administered on 09/18/17 09:50; Admin Dose 1 APPLIC; Start 09/04/17 at 14:00 Hydralazine HCl (Apresoline) 10 mg Q4H PRN IV ELEVATED BLOOD PRESSURE Last administered on 09/16/17 02:33; Admin Dose 10 MG; Start 09/05/17 at 01:00 Heparin Sodium (Porcine) (Heparin (5000 Units/0.5 ml)) 5,000 unit Q8 SC Last administered on 09/18/17 06:56; Admin Dose 5,000 UNIT; Start 09/06/17 at 22:00 Epoetin Kashif (Epogen (Esrd)) 10,000 units TuThSa@17 SC Last administered on 17:37; Admin Dose 10,000 UNITS; Start 09/07/17 at 17:00 Amlodipine Besylate (Norvasc) 10 mg DAILY PO Last administered on 09/18/17 09: 49; Admin Dose 10 MG; Start 09/08/17 at 09:00 Potassium Chloride (Klor-Con 20) 20 meq DAILY PO Last administered on 09:42; Admin Dose 20 MEQ; Start 09/10/17 at 09:00 Bisoprolol Fumarate (Zebeta) 15 mg DAILY PO Last administered on 09/18/17 09: 48; Admin Dose 15 MG; Start 09/11/17 at 09:00 Hydralazine HCl (Apresoline) 50 mg TID PO Last administered on 09/18/17 12:25 ; Admin Dose 50 MG; Start 09/15/17 at 13:00 Nystatin (Nystatin Susp) 5 ml QID PO Last administered on 09/18/17 12:25; Admin Dose 5 ML; Start 09/15/17 at 17:00 Diagnostic Test (Pha) (Accu-Chek) 1 ea 02 XX ; Start 09/16/17 at 02:00 Insulin Glargine (Lantus) 10 unit QHS SC ; Start 09/18/17 at 21:00 JUAN CARLOS THURMAN 4, 2017 13:49
--- NOTE | 2017-09-18 15:20 | CONS ---
Date/Time of Note Date/Time of Note DATE: 09/18/17 TIME: 15:19 Consult Date/Type/Reason Admit Date/Time Aug 24, 2017 at 19:05 Initial Consult Date 08/31/17 Type of Consultation: Pulm Ordering Provider: GIA DUMONT Subjective No events overnight. Objective Vital Signs Date Time Temp Pulse Resp B/P Pulse Ox O2 Delivery O2 Flow Rate FiO2 09/18/17 13:02 73 18 99 Nasal Cannula 2.0 09/18/17 13:02 28 09/18/17 12:27 133/62 09/18/17 07:23 97.4 Intake and Output 09/17/17 09/17/17 09/18/17 15:00 23:00 07:00 Intake Total 837 ml 480 ml Output Total 1000 ml 525 ml Balance -163 ml -45 ml Exam HEENT: Neck supple; no JVD; no LAD CVS: RRR, S1 and S2 CHEST: Coarse BS B/L ABD: Soft, NT, + BS EXT: No c/c/e Results/Medications Result Diagram: 09/17/17 0507 09/18/17 0531 Results 24 hrs Laboratory Tests Test 09/17/17 17:17 09/17/17 21:10 09/18/17 02:35 09/18/17 05:31 Bedside Glucose 144 199 91 Sodium Level 136 Potassium Level 4.2 Chloride Level 97 Carbon Dioxide Level 30 Anion Gap 13 Blood Urea Nitrogen 40 H Creatinine 2.83 H Glucose Level 61 #L Calcium Level 8.4 Phosphorus Level 4.6 Magnesium Level 2.0 Albumin 3.0 L Test 09/18/17 08:07 09/18/17 08:30 09/18/17 08:48 09/18/17 12:19 Bedside Glucose 68 L 98 106 167 Medications Current Medications Ondansetron HCl (Zofran Inj) 4 mg Q6H PRN IV NAUSEA AND/OR VOMITING Last administered on 09/04/17 13:47; Admin Dose 4 MG; Start 08/25/17 at 08:00 Morphine Sulfate (morphine) 2 mg Q4H PRN IV 5-10/ PAIN Last administered on 09/01/17 20:06; Admin Dose 2 MG; Start 08/25/17 at 08:00 Loratadine (Claritin) 10 mg DAILY PO Last administered on 09/18/17 09:42; Admin Dose 10 MG; Start 08/25/17 at 09:00 Losartan Potassium (Cozaar) 50 mg DAILY PO Last administered on 09/18/17 09:48 ; Admin Dose 50 MG; Start 08/25/17 at 09:00 Miscellaneous Information 1 ea NOTE XX ; Start 08/25/17 at 14:00 Glucose (Glutose) 15 gm Q15M PRN PO DECREASED GLUCOSE; Start 08/25/17 at 14:00 Glucose (Glutose) 22.5 gm Q15M PRN PO DECREASED GLUCOSE; Start 08/25/17 at 14: 00 Dextrose (D50w Syringe) 25 ml Q15M PRN IV DECREASED GLUCOSE Last administered on 09/05/17 12:07; Admin Dose 25 ML; Start 08/25/17 at 14:00 Dextrose (D50w Syringe) 50 ml Q15M PRN IV DECREASED GLUCOSE Last administered on 09/03/17 20:53; Admin Dose 50 ML; Start 08/25/17 at 14:00 Glucagon (Glucagen) 1 mg Q15M PRN IM DECREASED GLUCOSE; Start 08/25/17 at 14: 00 Glucose (Glutose) 15 gm Q15M PRN BUCCAL DECREASED GLUCOSE; Start 08/25/17 at 14:00 Acetaminophen (Tylenol Tab) 650 mg Q4H PRN PO PAIN AND OR ELEVATED TEMP Last administered on 09/18/17 02:37; Admin Dose 650 MG; Start 08/25/17 at 20:30 Miscellaneous Medication (Bax Susp) 10 ml TID PO Last administered on 12:25; Admin Dose 10 ML; Start 08/29/17 at 13:00 Morphine Sulfate (morphine) 1 mg Q4H PRN IV LESS THAN 5/10 PAIN Last administered on 09/01/17 13:10; Admin Dose 1 MG; Start 08/30/17 at 20:00 Hydralazine HCl (Apresoline) 10 mg Q6H PRN IV ELEVATED SYSTOLIC BP Last administered on 09/15/17 02:07; Admin Dose 10 MG; Start 09/01/17 at 21:30 Silver Sulfadiazine (Thermazene 1% 400 Gm) 1 applic BID TOP Last administered on 09/18/17 09:50; Admin Dose 1 APPLIC; Start 09/04/17 at 14:00 Hydralazine HCl (Apresoline) 10 mg Q4H PRN IV ELEVATED BLOOD PRESSURE Last administered on 09/16/17 02:33; Admin Dose 10 MG; Start 09/05/17 at 01:00 Heparin Sodium (Porcine) (Heparin (5000 Units/0.5 ml)) 5,000 unit Q8 SC Last administered on 09/18/17 13:52; Admin Dose 5,000 UNIT; Start 09/06/17 at 22:00 Epoetin Kashif (Epogen (Esrd)) 10,000 units TuThSa@17 SC Last administered on 17:37; Admin Dose 10,000 UNITS; Start 09/07/17 at 17:00 Amlodipine Besylate (Norvasc) 10 mg DAILY PO Last administered on 09/18/17 09: 49; Admin Dose 10 MG; Start 09/08/17 at 09:00 Potassium Chloride (Klor-Con 20) 20 meq DAILY PO Last administered on 09:42; Admin Dose 20 MEQ; Start 09/10/17 at 09:00 Bisoprolol Fumarate (Zebeta) 15 mg DAILY PO Last administered on 09/18/17 09: 48; Admin Dose 15 MG; Start 09/11/17 at 09:00 Hydralazine HCl (Apresoline) 50 mg TID PO Last administered on 09/18/17 12:25 ; Admin Dose 50 MG; Start 09/15/17 at 13:00 Nystatin (Nystatin Susp) 5 ml QID PO Last administered on 09/18/17 12:25; Admin Dose 5 ML; Start 09/15/17 at 17:00 Diagnostic Test (Pha) (Accu-Chek) 1 ea 02 XX ; Start 09/16/17 at 02:00 Insulin Glargine (Lantus) 10 unit QHS SC ; Start 09/18/17 at 21:00 Assessment/Plan Additional Assessment/Plan IMPRESSION: 1. Hypoxemic respiratory insufficiency in the setting of hypertension, chronic kidney disease and volume overload. 2. Chest x-ray better today. Clinically improved. 3. Persistent infiltrates concerning for inflammatory versus infectious process. Persistent low-grade leukocytosis 4. Pancytopenia resolved likely secondary to methotrexate. Reticulocytosis noted RECOMMENDATIONS: 1. Continue antibiotics 2. renal recommendations. 3. Cardiac recommendations 4. Aspiration precautions 5. Decrease FiO2 as tolerated PT evaluation SHABANA CLAYTON MD Sep 18, 2017 15:20
[2017-09-18] MEDS: EPOETIN 10000 UNITS/1 ML INJ (ESRD) SC SCH (17:33)
--- NOTE | 2017-09-18 17:35 | CONS ---
Date/Time of Note Date/Time of Note DATE: 09/18/17 TIME: 17:30 Consultation Date/Type/Reason Admit Date/Time Aug 24, 2017 at 19:05 Initial Consult Date SUBJECTIVE: 61 y/o female being treated for sepsis and PNA and cellulitis. Now off of antbx. Feeling better. Denies fevers, chills. VS: 128/60 p:76 r: 16 t: 99.7 so2: 100% LABS: BUN-40 Cr-2.83 No CBC today. CXR TODAY: Improving bilateral heterogeneous air space opacities and interval decrease in size of the small bilateral pleural effusions. Otherwise, no convincing interval change compared to chest radiograph dated 09/13/2017. PHYSICAL EXAMINATION: GENERAL: This is an obese, well-developed, elderly woman who is in no distress. HEENT: Head atraumatic, normocephalic. Sclerae anicteric. Buccal mucosa dry. NECK: Supple. CHEST: Rise symmetrical. Breath sounds diminished to bases. HEART: S1, S2. ABDOMEN: Soft. Bowel tones present. EXTREMITIES: With resolved erythema and edema of her left lower extremity. ASSESSMENT: 1. S/p sepsis. 2. Status post acute hypoxemic respiratory failure secondary to fluid overload and bilateral pneumonia. 3. S/p Left lower extremity cellulitis. 4. Status post neutropenia and pancytopenia. 5. Acute on possible chronic kidney disease. PLAN: The patient remains stable, Currently off of abx. Continue management per primary team and consultants, repeat cxr's prn. Type of Consultation: ID Referring Provider: GIA DUMONT Exam/Review of Systems Vital Signs Vitals Vital Signs Date Time Temp Pulse Resp B/P Pulse Ox O2 Delivery O2 Flow Rate FiO2 09/18/17 17:04 99.7 76 16 128/60 100 09/18/17 13:02 Nasal Cannula 2.0 09/18/17 13:02 28 Intake and Output 09/17/17 09/17/17 09/18/17 15:00 23:00 07:00 Intake Total 837 ml 480 ml Output Total 1000 ml 525 ml Balance -163 ml -45 ml Results Result Diagram: 09/17/17 0507 09/18/17 0531 Results 24 hrs Laboratory Tests Test 09/17/17 21:10 09/18/17 02:35 09/18/17 05:31 09/18/17 08:07 Bedside Glucose 199 91 68 L Sodium Level 136 Potassium Level 4.2 Chloride Level 97 Carbon Dioxide Level 30 Anion Gap 13 Blood Urea Nitrogen 40 H Creatinine 2.83 H Glucose Level 61 #L Calcium Level 8.4 Phosphorus Level 4.6 Magnesium Level 2.0 Albumin 3.0 L Test 09/18/17 08:30 09/18/17 08:48 09/18/17 12:19 Bedside Glucose 98 106 167 Medications Medications Current Medications Ondansetron HCl (Zofran Inj) 4 mg Q6H PRN IV NAUSEA AND/OR VOMITING Last administered on 09/04/17 13:47; Admin Dose 4 MG; Start 08/25/17 at 08:00 Morphine Sulfate (morphine) 2 mg Q4H PRN IV PAIN Last administered on 09/01/17 20:06; Admin Dose 2 MG; Start 08/25/17 at 08:00 Loratadine (Claritin) 10 mg DAILY PO Last administered on 09/18/17 09:42; Admin Dose 10 MG; Start 08/25/17 at 09:00 Losartan Potassium (Cozaar) 50 mg DAILY PO Last administered on 09/18/17 09:48 ; Admin Dose 50 MG; Start 08/25/17 at 09:00 Miscellaneous Information 1 ea NOTE XX ; Start 08/25/17 at 14:00 Glucose (Glutose) 15 gm Q15M PRN PO DECREASED GLUCOSE; Start 08/25/17 at 14:00 Glucose (Glutose) 22.5 gm Q15M PRN PO DECREASED GLUCOSE; Start 08/25/17 at 14: 00 Dextrose (D50w Syringe) 25 ml Q15M PRN IV DECREASED GLUCOSE Last administered on 09/05/17 12:07; Admin Dose 25 ML; Start 08/25/17 at 14:00 Dextrose (D50w Syringe) 50 ml Q15M PRN IV DECREASED GLUCOSE Last administered on 09/03/17 20:53; Admin Dose 50 ML; Start 08/25/17 at 14:00 Glucagon (Glucagen) 1 mg Q15M PRN IM DECREASED GLUCOSE; Start 08/25/17 at 14: 00 Glucose (Glutose) 15 gm Q15M PRN BUCCAL DECREASED GLUCOSE; Start 08/25/17 at 14:00 Acetaminophen (Tylenol Tab) 650 mg Q4H PRN PO PAIN AND OR ELEVATED TEMP Last administered on 09/18/17 02:37; Admin Dose 650 MG; Start 08/25/17 at 20:30 Miscellaneous Medication (Bax Susp) 10 ml TID PO Last administered on 12:25; Admin Dose 10 ML; Start 08/29/17 at 13:00 Morphine Sulfate (morphine) 1 mg Q4H PRN IV LESS THAN 5/10 PAIN Last administered on 09/01/17 13:10; Admin Dose 1 MG; Start 08/30/17 at 20:00 Hydralazine HCl (Apresoline) 10 mg Q6H PRN IV ELEVATED SYSTOLIC BP Last administered on 09/15/17 02:07; Admin Dose 10 MG; Start 09/01/17 at 21:30 Silver Sulfadiazine (Thermazene 1% 400 Gm) 1 applic BID TOP Last administered on 09/18/17 09:50; Admin Dose 1 APPLIC; Start 09/04/17 at 14:00 Hydralazine HCl (Apresoline) 10 mg Q4H PRN IV ELEVATED BLOOD PRESSURE Last administered on 09/16/17 02:33; Admin Dose 10 MG; Start 09/05/17 at 01:00 Heparin Sodium (Porcine) (Heparin (5000 Units/0.5 ml)) 5,000 unit Q8 SC Last administered on 09/18/17 13:52; Admin Dose 5,000 UNIT; Start 09/06/17 at 22:00 Epoetin Kashif (Epogen (Esrd)) 10,000 units TuThSa@17 SC Last administered on 17:37; Admin Dose 10,000 UNITS; Start 09/07/17 at 17:00 Amlodipine Besylate (Norvasc) 10 mg DAILY PO Last administered on 09/18/17 09: 49; Admin Dose 10 MG; Start 09/08/17 at 09:00 Potassium Chloride (Klor-Con 20) 20 meq DAILY PO Last administered on 09:42; Admin Dose 20 MEQ; Start 09/10/17 at 09:00 Bisoprolol Fumarate (Zebeta) 15 mg DAILY PO Last administered on 09/18/17 09: 48; Admin Dose 15 MG; Start 09/11/17 at 09:00 Hydralazine HCl (Apresoline) 50 mg TID PO Last administered on 09/18/17 12:25 ; Admin Dose 50 MG; Start 09/15/17 at 13:00 Nystatin (Nystatin Susp) 5 ml QID PO Last administered on 09/18/17 12:25; Admin Dose 5 ML; Start 09/15/17 at 17:00 Diagnostic Test (Pha) (Accu-Chek) 1 ea 02 XX ; Start 09/16/17 at 02:00 Insulin Glargine (Lantus) 10 unit QHS SC ; Start 09/18/17 at 21:00 LEIDA PEREIRA Sep 18, 2017 17:35
--- NOTE | 2017-09-18 18:46 | PN ---
Date/Time of Note Date/Time of Note DATE: 09/18/17 TIME: 18:43 Assessment/Plan Lines/Catheters IV Catheter Type (from [facility]): Saline Lock Reina in Place (from [facility]): Yes Assessment/Plan Chief Complaint/Hosp Course 1. Left lower extremity cellulitis and edema with history of diabetes;CT lower extremity without abscess: much improved -continue supportive measures -elevate above heart level 2. Leukocytosis, without fevers, with history of leukopenia: on prednisone. Cont to improve -abx per ID 3. Diabetes -Nutrition medication optimization -Encourage weight loss 4. Hypertension -Nutrition medication optimization -Encourage weight loss 5. Chronic kidney disease: Cr up (likely 2/2 diuresis) -Judicious fluid management -Avoid nephrotoxic agents 6. Bilateral ground glass changes on CT -s/p abx -pulm toilette 7. Hypoalbuminemia with hypocalcemia -Nutritional optimization 8. Anemia: no acute bleed noted -monitor -transfuse as needed -per heme 9. Electrolyte imbalance -optimize lytes 10. Pl Effusion: -diuresis -supportive Thank you. Patient seen and examined in collaboration with Dr. William Russ. Problems: Subjective 24 Hr Interval Summary Min temp but no fever. Breathing more comfortably on nasal cannula. Improved left leg edema. No fevers, chills, sob, congested cough, cp, palpitations, walsh, dizziness, n/v/d/dysuria. Exam/Review of Systems Vital Signs Vitals Vital Signs Date Time Temp Pulse Resp B/P Pulse Ox O2 Delivery O2 Flow Rate FiO2 09/18/17 18:00 2.0 28 09/18/17 18:00 76 20 Nasal Cannula 09/18/17 17:40 144/67 09/18/17 17:04 99.7 100 Intake and Output 09/17/17 09/17/17 09/18/17 15:00 23:00 07:00 Intake Total 837 ml 480 ml Output Total 1000 ml 525 ml Balance -163 ml -45 ml Exam Free Text/Dictation Constitutional: obese, other (Awake), No distress Psych: nl mood/affect, No anxiety Head: atraumatic, normocephalic Eyes: EOMI, PERRL, nl conjunctiva, No icteric ENMT: mucosa pink and dry, nl external ears & nose, nl lips & teeth Neck: non-tender, supple, No jvd Respiratory: Breathing nonlabored, No congested cough Cardiovascular: no edema, regular rate and rhythm Gastrointestinal: non-tender, soft, No rebound or guarding Musculoskeletal: joint tenderness, No nl extremities to inspection Extremities: no edema, normal pulses, tenderness, No calf tenderness Neurological: nl mental status, nl strength Skin: rash or lesions (LLE improved color), No diaphoresis, No nl turgor Lymph: nl lymph nodes, nontender Results Result Diagram: 09/17/17 0507 09/18/17 0531 EDMUND KINCAID NP Sep 18, 2017 18:46
[2017-09-18] MEDS: INSULIN GLARGINE [LANtus] 3 ML PEN SC SCH (21:55)
[2017-09-19] MEDS: ALBUTEROL/IPRATROPIUM (NEB) 3 ML AMP HHN SCH ×6 (00:45→21:17)
[2017-09-19] MEDS: ACCU-CHEK XX SCH ×5 (01:00→21:00)
[2017-09-19 02:29] VITALS: BP 122/60; RESP 18
[2017-09-19] MEDS: FUROSEMIDE 20 MG TAB PO SCH ×2 (05:52→17:29)
[2017-09-19] MEDS: HEPARIN 5,000 UNIT/0.5 ML VIAL SC SCH ×3 (05:59→21:16)
[2017-09-19 07:15] VITALS: BP 141/68; RESP 16
[2017-09-19] MEDS: INSULIN ASPART [NOVOLOG] 3 ML PEN SC SCH ×4 (08:15→21:00)
[2017-09-19] MEDS: LORATADINE 10 MG TAB PO SCH (08:33)
[2017-09-19] MEDS: POTASSIUM CHLORIDE (SR) 20 MEQ TAB PO SCH (08:33)
[2017-09-19] MEDS: LOSARTAN 50 MG TAB PO SCH (08:34)
[2017-09-19] MEDS: NYSTATIN SUSP 5 ML CUP PO SCH ×4 (08:34→21:04)
[2017-09-19] MEDS: AMLODIPINE 10 MG TAB PO SCH (08:34)
[2017-09-19] MEDS: DIPHENHYD/MYLANTA/LIDO (PO SYG) PO SCH ×3 (08:34→21:00)
[2017-09-19] MEDS: BISOPROLOL 5 MG TAB PO SCH (08:35)
[2017-09-19] MEDS: SILVER SULFADIAZINE 1% 400 GM CR TOP SCH ×2 (08:36→21:28)
--- NOTE | 2017-09-19 10:42 | PN ---
Date/Time of Note Date/Time of Note DATE: 09/19/17 TIME: 10:39 Assessment/Plan VTE Prophylaxis VTE Prophylaxis Intervention: heparin Lines/Catheters IV Catheter Type (from Nrs): Saline Lock Urinary Cath still in place: Yes Reason Cath still needed: other (indicate) (per primary) Assessment/Plan Chief Complaint/Hosp Course 61 yo woman admitted for cellulitis of lower left leg. History of diabetes, hypertension, obesity, azotemia, abnormal liver studies and methotrexate administration for unclear diagnosis ( leg pain). Leucopenia has resolved and the leucocytosis due to Neupogen is almost all gone. Anemia still noted. No new hematologic interventions. Encourage nutrition and ambulation. Would not resume methotrexate. Problems: Assessment/Plan Hgb is stable albeit low at 7.7. Note that retic was up to 7.7%, which hopefully indicates the beginning of a response to Epogen. Will recheck blood tomorrow. Subjective 24 Hr Interval Summary Free Text/Dictation Pt apparently comfortable. Spends most of her time sleeping Exam/Review of Systems Vital Signs Vitals Vital Signs Date Time Temp Pulse Resp B/P Pulse Ox O2 Delivery O2 Flow Rate FiO2 09/19/17 07:15 98.2 83 16 141/68 100 09/19/17 04:45 Nasal Cannula 1.5 09/18/17 18:00 28 Intake and Output 09/18/17 09/18/17 09/19/17 15:00 23:00 07:00 Intake Total 920 ml Output Total 650 ml Balance 270 ml Exam Pt sleeping. No new issues per nurses. Results Result Diagram: 09/17/17 0507 09/19/17 0511 Results 24 hrs Laboratory Tests Test 09/18/17 12:19 09/18/17 17:25 09/18/17 21:49 09/19/17 01:56 Bedside Glucose 167 172 205 128 Test 09/19/17 05:11 09/19/17 08:15 Sodium Level 135 Potassium Level 4.4 Chloride Level 97 Carbon Dioxide Level 29 Anion Gap 13 Blood Urea Nitrogen 38 H Creatinine 2.88 H Glucose Level 108 # Calcium Level 8.4 Phosphorus Level 5.0 H Magnesium Level 2.1 Albumin 2.9 L Bedside Glucose 127 Medications Medications Current Medications Ondansetron HCl (Zofran Inj) 4 mg Q6H PRN IV NAUSEA AND/OR VOMITING Last administered on 09/04/17 13:47; Admin Dose 4 MG; Start 08/25/17 at 08:00 Morphine Sulfate (morphine) 2 mg Q4H PRN IV 5-08/24 PAIN Last administered on 09/01/17 20:06; Admin Dose 2 MG; Start 08/25/17 at 08:00 Loratadine (Claritin) 10 mg DAILY PO Last administered on 09/19/17 08:33; Admin Dose 10 MG; Start 08/25/17 at 09:00 Losartan Potassium (Cozaar) 50 mg DAILY PO Last administered on 09/19/17 08:34 ; Admin Dose 50 MG; Start 08/25/17 at 09:00 Miscellaneous Information 1 ea NOTE XX ; Start 08/25/17 at 14:00 Glucose (Glutose) 15 gm Q15M PRN PO DECREASED GLUCOSE; Start 08/25/17 at 14:00 Glucose (Glutose) 22.5 gm Q15M PRN PO DECREASED GLUCOSE; Start 08/25/17 at 14: 00 Dextrose (D50w Syringe) 25 ml Q15M PRN IV DECREASED GLUCOSE Last administered on 09/05/17 12:07; Admin Dose 25 ML; Start 08/25/17 at 14:00 Dextrose (D50w Syringe) 50 ml Q15M PRN IV DECREASED GLUCOSE Last administered on 09/03/17 20:53; Admin Dose 50 ML; Start 08/25/17 at 14:00 Glucagon (Glucagen) 1 mg Q15M PRN IM DECREASED GLUCOSE; Start 08/25/17 at 14: 00 Glucose (Glutose) 15 gm Q15M PRN BUCCAL DECREASED GLUCOSE; Start 08/25/17 at 14:00 Acetaminophen (Tylenol Tab) 650 mg Q4H PRN PO PAIN AND OR ELEVATED TEMP Last administered on 09/18/17 18:17; Admin Dose 650 MG; Start 08/25/17 at 20:30 Miscellaneous Medication (Bax Susp) 10 ml TID PO Last administered on 08:34; Admin Dose 10 ML; Start 08/29/17 at 13:00 Morphine Sulfate (morphine) 1 mg Q4H PRN IV LESS THAN 5/10 PAIN Last administered on 09/01/17 13:10; Admin Dose 1 MG; Start 08/30/17 at 20:00 Hydralazine HCl (Apresoline) 10 mg Q6H PRN IV ELEVATED SYSTOLIC BP Last administered on 09/15/17 02:07; Admin Dose 10 MG; Start 09/01/17 at 21:30 Silver Sulfadiazine (Thermazene 1% 400 Gm) 1 applic BID TOP Last administered on 09/19/17 08:36; Admin Dose 1 APPLIC; Start 09/04/17 at 14:00 Hydralazine HCl (Apresoline) 10 mg Q4H PRN IV ELEVATED BLOOD PRESSURE Last administered on 09/16/17 02:33; Admin Dose 10 MG; Start 09/05/17 at 01:00 Heparin Sodium (Porcine) (Heparin (5000 Units/0.5 ml)) 5,000 unit Q8 SC Last administered on 09/19/17 05:59; Admin Dose 5,000 UNIT; Start 09/06/17 at 22:00 Epoetin Kashif (Epogen (Esrd)) 10,000 units TuThSa@17 SC Last administered on 17:33; Admin Dose 10,000 UNITS; Start 09/07/17 at 17:00 Amlodipine Besylate (Norvasc) 10 mg DAILY PO Last administered on 09/19/17 08: 34; Admin Dose 10 MG; Start 09/08/17 at 09:00 Potassium Chloride (Klor-Con 20) 20 meq DAILY PO Last administered on 08:33; Admin Dose 20 MEQ; Start 09/10/17 at 09:00 Bisoprolol Fumarate (Zebeta) 15 mg DAILY PO Last administered on 09/19/17 08: 35; Admin Dose 15 MG; Start 09/11/17 at 09:00 Hydralazine HCl (Apresoline) 50 mg TID PO Last administered on 09/19/17 08:34 ; Admin Dose 50 MG; Start 09/15/17 at 13:00 Nystatin (Nystatin Susp) 5 ml QID PO Last administered on 09/19/17 08:34; Admin Dose 5 ML; Start 09/15/17 at 17:00 Diagnostic Test (Pha) (Accu-Chek) 1 ea 02 XX ; Start 09/16/17 at 02:00 Insulin Glargine (Lantus) 10 unit QHS SC Last administered on 11/4/17at 21:55; Admin Dose 10 UNIT; Start 09/18/17 at 21:00 SARY DUQUE MD Sep 19, 2017 10:42
[2017-09-19 13:06] VITALS: BP 136/63; PULSE 73
--- NOTE | 2017-09-19 13:31 | PN ---
Date/Time of Note Date/Time of Note DATE: 09/19/17 TIME: 13:30 Assessment/Plan VTE Prophylaxis VTE Prophylaxis Intervention: SCD's Lines/Catheters IV Catheter Type (from Nrs): Saline Lock Urinary Cath still in place: No Assessment/Plan Assessment/Plan 1. Acute respiratory distress secondary to Bilateral Pneumonia- improving - Doing well on 2L NC and saturating >90%. Will continue to wean off supplemental O2 - Completed course of antibiotics - Pulmonology consultation appreciated - On Neb treatments - Completed course of steroids 2. HTN - Bp more controlled - Continue monitoring and adjust as needed 3. Pulmonary edema- improving - Cardiology on board and recommendations appreciated - On Lasix which has been effective - patient saturating 99% on 2L. will wean 4. Acute on chronic diastolic congestive heart failure - continue lasix - Cardiology on board and recommendations appreciated - ECHO results noted 5. Left lower extremity cellulitis- resolving - ID and Surgery on board. Recommendations appreciated - Antibiotic per ID - CT LE showed cellulitis and no evidence of osteomyelitis. Xray LE also performed and no osteomyelitis appreciated. -gen surg/vascular surg do not feel any acute intervention is needed 6. Mucositis 2/2 methotrexate use- improved - diphen/lido/mal oral solution ordered. Morphine if pain remain intolerable for PO intake - Tolerating soft mech diet, will advance 7. Pancytopenia- improved - now leukocytosis, possible due to filgrastim per heme/onc - Hgb still low, but no need for transfusions at this time. Will transfuse if < 7 - Hematology on board and recommendations appreciated. - s/p multiple blood transfusions and plt transfusions. 8. Leukocytosis- trending down - Continue to monitor. May be secondary to Neupogen 9. Neutropenia- resolved - WBC downtrending now <15 and Neupogen no longer on board - Will continue to monitor - Heme on board and recommendations appreciated 10. BK vs BK on CKD - Nephrology on board and recommendations appreciated. - Cr starting to rise again - Monitor UOP - HIV negative, KASSY negative 11. Hypokalemia - K 4.4. stable 12. Eosinophilia - normalized after d/c sulfasalazine and mtx 13. Vascular insufficiency - Vascular surgery on board and recommendations appreciated. No current vascular intervention as the patient has not developed any gangrene or ulcers - Will need to follow up as outpatient due to LE atherosclerosis 14. Disposition - awaiting SNF placement Subjective 24 Hr Interval Summary Free Text/Dictation patient resting comfortably in bed. No acute overnight events. Exam/Review of Systems Vital Signs Vitals Vital Signs Date Time Temp Pulse Resp B/P Pulse Ox O2 Delivery O2 Flow Rate FiO2 09/19/17 13:06 73 136/63 09/19/17 11:23 Nasal Cannula 2.0 09/19/17 07:15 98.2 16 100 09/18/17 18:00 28 Intake and Output 09/18/17 09/18/17 09/19/17 15:00 23:00 07:00 Intake Total 920 ml Output Total 650 ml Balance 270 ml Exam General: Patient is resting comfortably and in NAD Head: Normocephalic atraumatic Eyes: EOMI, pupils reactive to light Neck: Supple, nontender, midline Respiratory: crackles bases, diminished breath sounds, no wheezing Cardiovascular: regular rate, no obvious murmurs Gastrointestinal: non-tender to palpation, bowel sounds heard. soft, nondistended Neurological: Moves all extremities spontaneously Skin: LLE dryness of skin. no tenderness Results Result Diagram: 09/17/17 0507 09/19/17 0511 Results 24 hrs Laboratory Tests Test 09/18/17 17:25 09/18/17 21:49 09/19/17 01:56 09/19/17 05:11 Bedside Glucose 172 205 128 Sodium Level 135 Potassium Level 4.4 Chloride Level 97 Carbon Dioxide Level 29 Anion Gap 13 Blood Urea Nitrogen 38 H Creatinine 2.88 H Glucose Level 108 # Calcium Level 8.4 Phosphorus Level 5.0 H Magnesium Level 2.1 Albumin 2.9 L Test 09/19/17 08:15 09/19/17 12:40 Bedside Glucose 127 200 Medications Medications Current Medications Ondansetron HCl (Zofran Inj) 4 mg Q6H PRN IV NAUSEA AND/OR VOMITING Last administered on 09/04/17 13:47; Admin Dose 4 MG; Start 08/25/17 at 08:00 Morphine Sulfate (morphine) 2 mg Q4H PRN IV 5-10 PAIN Last administered on 09/01/17 20:06; Admin Dose 2 MG; Start 08/25/17 at 08:00 Loratadine (Claritin) 10 mg DAILY PO Last administered on 09/19/17 08:33; Admin Dose 10 MG; Start 08/25/17 at 09:00 Losartan Potassium (Cozaar) 50 mg DAILY PO Last administered on 09/19/17 08:34 ; Admin Dose 50 MG; Start 08/25/17 at 09:00 Miscellaneous Information 1 ea NOTE XX ; Start 08/25/17 at 14:00 Glucose (Glutose) 15 gm Q15M PRN PO DECREASED GLUCOSE; Start 08/25/17 at 14:00 Glucose (Glutose) 22.5 gm Q15M PRN PO DECREASED GLUCOSE; Start 08/25/17 at 14: 00 Dextrose (D50w Syringe) 25 ml Q15M PRN IV DECREASED GLUCOSE Last administered on 09/05/17 12:07; Admin Dose 25 ML; Start 08/25/17 at 14:00 Dextrose (D50w Syringe) 50 ml Q15M PRN IV DECREASED GLUCOSE Last administered on 09/03/17 20:53; Admin Dose 50 ML; Start 08/25/17 at 14:00 Glucagon (Glucagen) 1 mg Q15M PRN IM DECREASED GLUCOSE; Start 08/25/17 at 14: 00 Glucose (Glutose) 15 gm Q15M PRN BUCCAL DECREASED GLUCOSE; Start 08/25/17 at 14:00 Acetaminophen (Tylenol Tab) 650 mg Q4H PRN PO PAIN AND OR ELEVATED TEMP Last administered on 09/18/17 18:17; Admin Dose 650 MG; Start 08/25/17 at 20:30 Miscellaneous Medication (Bax Susp) 10 ml TID PO Last administered on 13:04; Admin Dose 10 ML; Start 08/29/17 at 13:00 Morphine Sulfate (morphine) 1 mg Q4H PRN IV LESS THAN 5/10 PAIN Last administered on 09/01/17 13:10; Admin Dose 1 MG; Start 08/30/17 at 20:00 Hydralazine HCl (Apresoline) 10 mg Q6H PRN IV ELEVATED SYSTOLIC BP Last administered on 09/15/17 02:07; Admin Dose 10 MG; Start 09/01/17 at 21:30 Silver Sulfadiazine (Thermazene 1% 400 Gm) 1 applic BID TOP Last administered on 09/19/17 08:36; Admin Dose 1 APPLIC; Start 09/04/17 at 14:00 Hydralazine HCl (Apresoline) 10 mg Q4H PRN IV ELEVATED BLOOD PRESSURE Last administered on 09/16/17 02:33; Admin Dose 10 MG; Start 09/05/17 at 01:00 Heparin Sodium (Porcine) (Heparin (5000 Units/0.5 ml)) 5,000 unit Q8 SC Last administered on 09/19/17 05:59; Admin Dose 5,000 UNIT; Start 09/06/17 at 22:00 Epoetin Kashif (Epogen (Esrd)) 10,000 units TuThSa@17 SC Last administered on 17:33; Admin Dose 10,000 UNITS; Start 09/07/17 at 17:00 Amlodipine Besylate (Norvasc) 10 mg DAILY PO Last administered on 09/19/17 08: 34; Admin Dose 10 MG; Start 09/08/17 at 09:00 Potassium Chloride (Klor-Con 20) 20 meq DAILY PO Last administered on 08:33; Admin Dose 20 MEQ; Start 09/10/17 at 09:00 Bisoprolol Fumarate (Zebeta) 15 mg DAILY PO Last administered on 09/19/17 08: 35; Admin Dose 15 MG; Start 09/11/17 at 09:00 Hydralazine HCl (Apresoline) 50 mg TID PO Last administered on 09/19/17 13:06 ; Admin Dose 50 MG; Start 09/15/17 at 13:00 Nystatin (Nystatin Susp) 5 ml QID PO Last administered on 09/19/17 13:04; Admin Dose 5 ML; Start 09/15/17 at 17:00 Diagnostic Test (Pha) (Accu-Chek) 1 ea 02 XX ; Start 09/16/17 at 02:00 Insulin Glargine (Lantus) 10 unit QHS SC Last administered on 09/18/17 21:55; Admin Dose 10 UNIT; Start 09/18/17 at 21:00 JOANA BARKLEY MD Sep 19, 2017 13:31
--- NOTE | 2017-09-19 14:08 | CONS ---
Date/Time of Note Date/Time of Note DATE: 09/19/17 TIME: 14:05 Assessment/Plan Assessment/Plan Chief Complaint/Hosp Course 1. acute on-chronic kidney disease due to underlying sepsis/meds BETTER 2 Underlying acute tubular necrosis,better 3 Likely underlying diabetic nephropathy, underlying hypertensive nephrosclerosis BETTER 4 pancytopenia could be due to sepsis, as well as drug-induced mthx/sulpha 5. Hyponatremia. resolved 6. METABOLIC ACIDOSIS BETTER 7 Nephrotic range proteinuria 8 BLE atherosclerosis 9 PNEUMONIA AND PUL EDEMA BETTER 10 ckd PLAN DIURETIC CK LABS fluid res f/u labs Problems: Consultation Date/Type/Reason Admit Date/Time Aug 24, 2017 at 19:05 Initial Consult Date RENAL F/U Referring Provider: GIA DUMONT 24 HR Interval Summary Constitutional: other (no sob,labs seen) Exam/Review of Systems Vital Signs Vitals Vital Signs Date Time Temp Pulse Resp B/P Pulse Ox O2 Delivery O2 Flow Rate FiO2 09/19/17 13:50 76 18 100 Nasal Cannula 2.0 09/19/17 13:06 136/63 09/19/17 07:15 98.2 09/18/17 18:00 28 Intake and Output 09/18/17 09/18/17 09/19/17 15:00 23:00 07:00 Intake Total 920 ml Output Total 650 ml Balance 270 ml Exam Neck: supple Respiratory: clear to auscultation Cardiovascular: regular rate and rhythm Gastrointestinal: soft Musculoskeletal: nl extremities to inspection Extremities: edema (+) Results Result Diagram: 09/17/17 0507 09/19/17 0511 Results 24 hrs Laboratory Tests Test 09/18/17 17:25 09/18/17 21:49 09/19/17 01:56 09/19/17 05:11 Bedside Glucose 172 205 128 Sodium Level 135 Potassium Level 4.4 Chloride Level 97 Carbon Dioxide Level 29 Anion Gap 13 Blood Urea Nitrogen 38 H Creatinine 2.88 H Glucose Level 108 # Calcium Level 8.4 Phosphorus Level 5.0 H Magnesium Level 2.1 Albumin 2.9 L Test 09/19/17 08:15 09/19/17 12:40 Bedside Glucose 127 200 Medications Medications Current Medications Ondansetron HCl (Zofran Inj) 4 mg Q6H PRN IV NAUSEA AND/OR VOMITING Last administered on 09/04/17t 13:47; Admin Dose 4 MG; Start 08/25/17 at 08:00 Morphine Sulfate (morphine) 2 mg Q4H PRN IV 5-08/24 PAIN Last administered on 09/01/17 20:06; Admin Dose 2 MG; Start 08/25/17 at 08:00 Loratadine (Claritin) 10 mg DAILY PO Last administered on 09/19/17 08:33; Admin Dose 10 MG; Start 08/25/17 at 09:00 Losartan Potassium (Cozaar) 50 mg DAILY PO Last administered on 09/19/17 08:34 ; Admin Dose 50 MG; Start 08/25/17 at 09:00 Miscellaneous Information 1 ea NOTE XX ; Start 08/25/17 at 14:00 Glucose (Glutose) 15 gm Q15M PRN PO DECREASED GLUCOSE; Start 08/25/17 at 14:00 Glucose (Glutose) 22.5 gm Q15M PRN PO DECREASED GLUCOSE; Start 08/25/17 at 14: 00 Dextrose (D50w Syringe) 25 ml Q15M PRN IV DECREASED GLUCOSE Last administered on 09/05/17 12:07; Admin Dose 25 ML; Start 08/25/17 at 14:00 Dextrose (D50w Syringe) 50 ml Q15M PRN IV DECREASED GLUCOSE Last administered on 09/03/17 20:53; Admin Dose 50 ML; Start 08/25/17 at 14:00 Glucagon (Glucagen) 1 mg Q15M PRN IM DECREASED GLUCOSE; Start 08/25/17 at 14: 00 Glucose (Glutose) 15 gm Q15M PRN BUCCAL DECREASED GLUCOSE; Start 08/25/17 at 14:00 Acetaminophen (Tylenol Tab) 650 mg Q4H PRN PO PAIN AND OR ELEVATED TEMP Last administered on 09/18/17 18:17; Admin Dose 650 MG; Start 08/25/17 at 20:30 Miscellaneous Medication (Bax Susp) 10 ml TID PO Last administered on 13:04; Admin Dose 10 ML; Start 08/29/17 at 13:00 Morphine Sulfate (morphine) 1 mg Q4H PRN IV LESS THAN 5/10 PAIN Last administered on 09/01/17 13:10; Admin Dose 1 MG; Start 08/30/17 at 20:00 Hydralazine HCl (Apresoline) 10 mg Q6H PRN IV ELEVATED SYSTOLIC BP Last administered on 09/15/17 02:07; Admin Dose 10 MG; Start 09/01/17 at 21:30 Silver Sulfadiazine (Thermazene 1% 400 Gm) 1 applic BID TOP Last administered on 09/19/17 08:36; Admin Dose 1 APPLIC; Start 09/04/17 at 14:00 Hydralazine HCl (Apresoline) 10 mg Q4H PRN IV ELEVATED BLOOD PRESSURE Last administered on 09/16/17 02:33; Admin Dose 10 MG; Start 09/05/17 at 01:00 Heparin Sodium (Porcine) (Heparin (5000 Units/0.5 ml)) 5,000 unit Q8 SC Last administered on 09/19/17 05:59; Admin Dose 5,000 UNIT; Start 09/06/17 at 22:00 Epoetin Kashif (Epogen (Esrd)) 10,000 units TuThSa@17 SC Last administered on 17:33; Admin Dose 10,000 UNITS; Start 09/07/17 at 17:00 Amlodipine Besylate (Norvasc) 10 mg DAILY PO Last administered on 09/19/17 08: 34; Admin Dose 10 MG; Start 09/08/17 at 09:00 Potassium Chloride (Klor-Con 20) 20 meq DAILY PO Last administered on 08:33; Admin Dose 20 MEQ; Start 09/10/17 at 09:00 Bisoprolol Fumarate (Zebeta) 15 mg DAILY PO Last administered on 09/19/17 08: 35; Admin Dose 15 MG; Start 09/11/17 at 09:00 Hydralazine HCl (Apresoline) 50 mg TID PO Last administered on 09/19/17 13:06 ; Admin Dose 50 MG; Start 09/15/17 at 13:00 Nystatin (Nystatin Susp) 5 ml QID PO Last administered on 09/19/17 13:04; Admin Dose 5 ML; Start 09/15/17 at 17:00 Diagnostic Test (Pha) (Accu-Chek) 1 ea 02 XX ; Start 09/16/17 at 02:00 Insulin Glargine (Lantus) 10 unit QHS SC Last administered on 09/18/17 21:55; Admin Dose 10 UNIT; Start 09/18/17 at 21:00 JENNA PATTEN MD Sep 19, 2017 14:08
--- NOTE | 2017-09-19 14:10 | PN ---
Date/Time of Note Date/Time of Note DATE: 09/19/17 TIME: 14:06 Assessment/Plan Lines/Catheters IV Catheter Type (from [facility] Saline Lock Reina in Place (from [facility]): Yes Assessment/Plan Chief Complaint/Hosp Course 1. Left lower extremity cellulitis and edema with history of diabetes;CT lower extremity without abscess: much improved -continue supportive measures -elevate above heart level 2. Leukocytosis, without fevers, with history of leukopenia: Cont to improve; afebrile -per heme 3. Diabetes -Nutrition medication optimization -Encourage weight loss 4. Hypertension -Nutrition medication optimization -Encourage weight loss 5. Chronic kidney disease: -Judicious fluid management -Avoid nephrotoxic agents 6. Bilateral ground glass changes on CT -s/p abx -pulm toilette 7. Hypoalbuminemia with hypocalcemia -Nutritional optimization 8. Anemia: no acute bleed noted -monitor -transfuse as needed -per heme 9. Electrolyte imbalance -optimize lytes 10. Pl Effusion: no sob -diuresis -supportive Thank you. Patient seen and examined in collaboration with Dr. William Russ. Problems: Subjective 24 Hr Interval Summary Breathing comfortably on nasal cannula. No c/o pain. Left leg no edema, much improved. No fevers, chills, sob, congested cough, cp, palpitations, walsh, dizziness, n/v/d/dysuria. Exam/Review of Systems Vital Signs Vitals Vital Signs Date Time Temp Pulse Resp B/P Pulse Ox O2 Delivery O2 Flow Rate FiO2 09/19/17 13:50 76 18 100 Nasal Cannula 2.0 09/19/17 13:06 136/63 09/19/17 07:15 98.2 09/18/17 18:00 28 Intake and Output 09/18/17 09/18/17 09/19/17 15:00 23:00 07:00 Intake Total 920 ml Output Total 650 ml Balance 270 ml Exam Free Text/Dictation Constitutional: obese, other (Awake), No distress Psych: nl mood/affect, No anxiety Head: atraumatic, normocephalic Eyes: EOMI, PERRL, nl conjunctiva, No icteric ENMT: mucosa pink and dry, nl external ears & nose, nl lips & teeth Neck: non-tender, supple, No jvd Respiratory: Breathing nonlabored, No congested cough; nc Cardiovascular: no edema, regular rate and rhythm Gastrointestinal: non-tender, soft, No rebound or guarding Musculoskeletal: joint tenderness, No nl extremities to inspection Extremities: no edema, normal pulses, tenderness, No calf tenderness Neurological: nl mental status, nl strength Skin: rash or lesions (LLE improved color), No diaphoresis, No nl turgor Lymph: nl lymph nodes, nontender Results Result Diagram: 09/17/17 0507 09/19/17 0511 EDMUND KINCAID NP Sep 19, 2017 14:10
[2017-09-19 14:59] VITALS: BP 134/60; RESP 16
--- NOTE | 2017-09-19 15:17 | CONS ---
Date/Time of Note Date/Time of Note DATE: 09/19/17 TIME: 15:15 Consult Date/Type/Reason Admit Date/Time Aug 24, 2017 at 19:05 Initial Consult Date 08/31/17 Type of Consultation: Pulm Ordering Provider: GIA DUMONT Subjective No events overnight Objective Vital Signs Date Time Temp Pulse Resp B/P Pulse Ox O2 Delivery O2 Flow Rate FiO2 09/19/17 14:59 99.1 79 16 134/60 97 09/19/17 13:50 Nasal Cannula 2.0 09/18/17 18:00 28 Intake and Output 09/18/17 09/18/17 09/19/17 15:00 23:00 07:00 Intake Total 920 ml Output Total 650 ml Balance 270 ml Exam HEENT: Neck supple; no JVD; no LAD CVS: RRR, S1 and S2 CHEST: Coarse BS and basilar rales ABD: Soft, NT, + BS EXT: No c/c/e Results/Medications Result Diagram: 09/17/17 0507 09/19/17 0511 Results 24 hrs Laboratory Tests Test 09/18/17 17:25 09/18/17 21:49 09/19/17 01:56 09/19/17 05:11 Bedside Glucose 172 205 128 Sodium Level 135 Potassium Level 4.4 Chloride Level 97 Carbon Dioxide Level 29 Anion Gap 13 Blood Urea Nitrogen 38 H Creatinine 2.88 H Glucose Level 108 # Calcium Level 8.4 Phosphorus Level 5.0 H Magnesium Level 2.1 Albumin 2.9 L Test 09/19/17 08:15 09/19/17 12:40 Bedside Glucose 127 200 Medications Current Medications Ondansetron HCl (Zofran Inj) 4 mg Q6H PRN IV NAUSEA AND/OR VOMITING Last administered on 09/04/17 13:47; Admin Dose 4 MG; Start 08/25/17 at 08:00 Morphine Sulfate (morphine) 2 mg Q4H PRN IV PAIN Last administered on 09/01/17 20:06; Admin Dose 2 MG; Start 08/25/17 at 08:00 Loratadine (Claritin) 10 mg DAILY PO Last administered on 09/19/17 08:33; Admin Dose 10 MG; Start 08/25/17 at 09:00 Losartan Potassium (Cozaar) 50 mg DAILY PO Last administered on 09/19/17 08:34 ; Admin Dose 50 MG; Start 08/25/17 at 09:00 Miscellaneous Information 1 ea NOTE XX ; Start 08/25/17 at 14:00 Glucose (Glutose) 15 gm Q15M PRN PO DECREASED GLUCOSE; Start 08/25/17 at 14:00 Glucose (Glutose) 22.5 gm Q15M PRN PO DECREASED GLUCOSE; Start 08/25/17 at 14: 00 Dextrose (D50w Syringe) 25 ml Q15M PRN IV DECREASED GLUCOSE Last administered on 09/05/17 12:07; Admin Dose 25 ML; Start 08/25/17 at 14:00 Dextrose (D50w Syringe) 50 ml Q15M PRN IV DECREASED GLUCOSE Last administered on 09/03/17 20:53; Admin Dose 50 ML; Start 08/25/17 at 14:00 Glucagon (Glucagen) 1 mg Q15M PRN IM DECREASED GLUCOSE; Start 08/25/17 at 14: 00 Glucose (Glutose) 15 gm Q15M PRN BUCCAL DECREASED GLUCOSE; Start 08/25/17 at 14:00 Acetaminophen (Tylenol Tab) 650 mg Q4H PRN PO PAIN AND OR ELEVATED TEMP Last administered on 09/18/17 18:17; Admin Dose 650 MG; Start 08/25/17 at 20:30 Miscellaneous Medication (Bax Susp) 10 ml TID PO Last administered on 13:04; Admin Dose 10 ML; Start 08/29/17 at 13:00 Morphine Sulfate (morphine) 1 mg Q4H PRN IV LESS THAN 5/10 PAIN Last administered on 09/01/17 13:10; Admin Dose 1 MG; Start 08/30/17 at 20:00 Hydralazine HCl (Apresoline) 10 mg Q6H PRN IV ELEVATED SYSTOLIC BP Last administered on 09/15/17 02:07; Admin Dose 10 MG; Start 09/01/17 at 21:30 Silver Sulfadiazine (Thermazene 1% 400 Gm) 1 applic BID TOP Last administered on 09/19/17 08:36; Admin Dose 1 APPLIC; Start 09/04/17 at 14:00 Hydralazine HCl (Apresoline) 10 mg Q4H PRN IV ELEVATED BLOOD PRESSURE Last administered on 09/16/17 02:33; Admin Dose 10 MG; Start 09/05/17 at 01:00 Heparin Sodium (Porcine) (Heparin (5000 Units/0.5 ml)) 5,000 unit Q8 SC Last administered on 09/19/17 05:59; Admin Dose 5,000 UNIT; Start 09/06/17 at 22:00 Epoetin Kashif (Epogen (Esrd)) 10,000 units TuThSa@17 SC Last administered on 17:33; Admin Dose 10,000 UNITS; Start 09/07/17 at 17:00 Amlodipine Besylate (Norvasc) 10 mg DAILY PO Last administered on 09/19/17 08: 34; Admin Dose 10 MG; Start 09/08/17 at 09:00 Potassium Chloride (Klor-Con 20) 20 meq DAILY PO Last administered on 08:33; Admin Dose 20 MEQ; Start 09/10/17 at 09:00 Bisoprolol Fumarate (Zebeta) 15 mg DAILY PO Last administered on 09/19/17 08: 35; Admin Dose 15 MG; Start 09/11/17 at 09:00 Hydralazine HCl (Apresoline) 50 mg TID PO Last administered on 09/19/17 13:06 ; Admin Dose 50 MG; Start 09/15/17 at 13:00 Nystatin (Nystatin Susp) 5 ml QID PO Last administered on 09/19/17 13:04; Admin Dose 5 ML; Start 09/15/17 at 17:00 Diagnostic Test (Pha) (Accu-Chek) 1 ea 02 XX ; Start 09/16/17 at 02:00 Insulin Glargine (Lantus) 10 unit QHS SC Last administered on 09/18/17 21:55; Admin Dose 10 UNIT; Start 09/18/17 at 21:00 Assessment/Plan Additional Assessment/Plan IMP: 1. Hypoxemic respiratory insufficiency in the setting of hypertension, chronic kidney disease and volume overload. 2. Chest x-ray better today. Clinically improved. 3. Persistent infiltrates concerning for inflammatory versus infectious process. Persistent low-grade leukocytosis 4. Pancytopenia resolved likely secondary to methotrexate. Reticulocytosis noted RECS: 1. Continue antibiotics 2. Decrease FiO2 3. PT/OT SHABANA CLAYTON MD Sep 19, 2017 15:17
[2017-09-19 17:29] VITALS: BP 138/65; PULSE 82
[2017-09-19 20:00] VITALS: BP 133/61; RESP 20
[2017-09-19] MEDS: INSULIN GLARGINE [LANtus] 3 ML PEN SC SCH (21:10)
[2017-09-20] MEDS: ACCU-CHEK XX SCH ×5 (01:10→21:00)
[2017-09-20] MEDS: ALBUTEROL/IPRATROPIUM (NEB) 3 ML AMP HHN SCH ×6 (01:53→21:00)
[2017-09-20 02:00] VITALS: BP 134/62; RESP 20
[2017-09-20] MEDS: FUROSEMIDE 20 MG TAB PO SCH ×2 (05:26→18:00)
[2017-09-20] MEDS: HEPARIN 5,000 UNIT/0.5 ML VIAL SC SCH ×3 (05:33→22:00)
[2017-09-20 07:45] VITALS: BP 127/59; RESP 20
[2017-09-20] MEDS: INSULIN ASPART [NOVOLOG] 3 ML PEN SC SCH ×4 (08:15→21:00)
[2017-09-20] MEDS: NYSTATIN SUSP 5 ML CUP PO SCH ×4 (08:38→21:00)
[2017-09-20] MEDS: BISOPROLOL 5 MG TAB PO SCH (08:38)
[2017-09-20] MEDS: AMLODIPINE 10 MG TAB PO SCH (08:39)
[2017-09-20] MEDS: POTASSIUM CHLORIDE (SR) 20 MEQ TAB PO SCH (08:39)
[2017-09-20] MEDS: LORATADINE 10 MG TAB PO SCH (08:40)
[2017-09-20] MEDS: SILVER SULFADIAZINE 1% 400 GM CR TOP SCH ×2 (08:41→21:00)
[2017-09-20] MEDS: LOSARTAN 50 MG TAB PO SCH (08:41)
[2017-09-20] MEDS: DIPHENHYD/MYLANTA/LIDO (PO SYG) PO SCH ×3 (09:35→21:00)
--- NOTE | 2017-09-20 12:08 | CONS ---
Date/Time of Note Date/Time of Note DATE: 09/20/17 TIME: 12:08 Consult Date/Type/Reason Admit Date/Time Aug 24, 2017 at 19:05 Initial Consult Date 08/29/17 Type of Consultation: ID Ordering Provider: GIA DUMONT Objective Vital Signs Date Time Temp Pulse Resp B/P Pulse Ox O2 Delivery O2 Flow Rate FiO2 09/20/17 08:46 74 20 97 Nasal Cannula 2.0 09/20/17 07:45 98.1 127/59 09/18/17 18:00 28 Intake and Output 09/19/17 09/19/17 09/20/17 15:00 23:00 07:00 Intake Total 420 ml 820 ml 120 ml Output Total 800 ml 600 ml 500 ml Balance -380 ml 220 ml -380 ml Results/Medications Result Diagram: 09/20/17 0537 09/20/17 0537 Results 24 hrs Laboratory Tests Test 09/19/17 12:40 09/19/17 17:23 09/19/17 21:02 09/20/17 05:37 Bedside Glucose 200 187 178 White Blood Count 8.7 # Red Blood Count 2.63 L Hemoglobin 7.5 L Hematocrit 24.7 L Mean Corpuscular Volume 93.9 Mean Corpuscular Hemoglobin 28.5 L Mean Corpuscular Hemoglobin Concent 30.4 L Red Cell Distribution Width 17.0 H Platelet Count 490 H Mean Platelet Volume 9.5 Neutrophils % 53.9 Lymphocytes % 15.2 Monocytes % 24.5 H Eosinophils % 0.3 Basophils % 1.0 Nucleated Red Blood Cells % 0.0 Neutrophils # 4.7 Lymphocytes # 1.3 Monocytes # 2.1 H Eosinophils # 0.0 Basophils # 0.1 Nucleated Red Blood Cells # 0.0 Absolute Reticulocyte Count 0.174 H Percent Reticulocyte Count 6.8 H Sodium Level 136 Potassium Level 4.6 Chloride Level 100 Carbon Dioxide Level 28 Anion Gap 13 Blood Urea Nitrogen 39 H Creatinine 3.00 H Glucose Level 118 Calcium Level 8.5 Phosphorus Level 4.7 Magnesium Level 2.1 Albumin 2.7 L Test 09/20/17 08:09 09/20/17 11:56 Bedside Glucose 118 197 Medications Current Medications Ondansetron HCl (Zofran Inj) 4 mg Q6H PRN IV NAUSEA AND/OR VOMITING Last administered on 09/04/17t 13:47; Admin Dose 4 MG; Start 08/25/17 at 08:00 Morphine Sulfate (morphine) 2 mg Q4H PRN IV 5-10/10 PAIN Last administered on 09/01/17 20:06; Admin Dose 2 MG; Start 08/25/17 at 08:00 Loratadine (Claritin) 10 mg DAILY PO Last administered on 09/20/17 08:40; Admin Dose 10 MG; Start 08/25/17 at 09:00 Losartan Potassium (Cozaar) 50 mg DAILY PO Last administered on 09/20/17 08:41 ; Admin Dose 50 MG; Start 08/25/17 at 09:00 Miscellaneous Information 1 ea NOTE XX ; Start 08/25/17 at 14:00 Glucose (Glutose) 15 gm Q15M PRN PO DECREASED GLUCOSE; Start 08/25/17 at 14:00 Glucose (Glutose) 22.5 gm Q15M PRN PO DECREASED GLUCOSE; Start 08/25/17 at 14: 00 Dextrose (D50w Syringe) 25 ml Q15M PRN IV DECREASED GLUCOSE Last administered on 09/05/17 12:07; Admin Dose 25 ML; Start 08/25/17 at 14:00 Dextrose (D50w Syringe) 50 ml Q15M PRN IV DECREASED GLUCOSE Last administered on 09/03/17 20:53; Admin Dose 50 ML; Start 08/25/17 at 14:00 Glucagon (Glucagen) 1 mg Q15M PRN IM DECREASED GLUCOSE; Start 08/25/17 at 14: 00 Glucose (Glutose) 15 gm Q15M PRN BUCCAL DECREASED GLUCOSE; Start 08/25/17 at 14:00 Acetaminophen (Tylenol Tab) 650 mg Q4H PRN PO PAIN AND OR ELEVATED TEMP Last administered on 09/18/17 18:17; Admin Dose 650 MG; Start 08/25/17 at 20:30 Miscellaneous Medication (Bax Susp) 10 ml TID PO Last administered on 09:35; Admin Dose 10 ML; Start 08/29/17 at 13:00 Morphine Sulfate (morphine) 1 mg Q4H PRN IV LESS THAN 5/10 PAIN Last administered on 09/01/17 13:10; Admin Dose 1 MG; Start 08/30/17 at 20:00 Hydralazine HCl (Apresoline) 10 mg Q6H PRN IV ELEVATED SYSTOLIC BP Last administered on 09/15/17 02:07; Admin Dose 10 MG; Start 09/01/17 at 21:30 Silver Sulfadiazine (Thermazene 1% 400 Gm) 1 applic BID TOP Last administered on 09/20/17 08:41; Admin Dose 1 APPLIC; Start 09/04/17 at 14:00 Hydralazine HCl (Apresoline) 10 mg Q4H PRN IV ELEVATED BLOOD PRESSURE Last administered on 09/16/17 02:33; Admin Dose 10 MG; Start 09/05/17 at 01:00 Heparin Sodium (Porcine) (Heparin (5000 Units/0.5 ml)) 5,000 unit Q8 SC Last administered on 09/20/17 05:33; Admin Dose 5,000 UNIT; Start 09/06/17 at 22:00 Epoetin Kashif (Epogen (Esrd)) 10,000 units TuThSa@17 SC Last administered on 17:33; Admin Dose 10,000 UNITS; Start 09/07/17 at 17:00 Amlodipine Besylate (Norvasc) 10 mg DAILY PO Last administered on 09/20/17 08: 39; Admin Dose 10 MG; Start 09/08/17 at 09:00 Potassium Chloride (Klor-Con 20) 20 meq DAILY PO Last administered on 08:39; Admin Dose 20 MEQ; Start 09/10/17 at 09:00 Bisoprolol Fumarate (Zebeta) 15 mg DAILY PO Last administered on 09/20/17 08: 38; Admin Dose 15 MG; Start 09/11/17 at 09:00 Hydralazine HCl (Apresoline) 50 mg TID PO Last administered on 09/20/17 08:40 ; Admin Dose 50 MG; Start 09/15/17 at 13:00 Nystatin (Nystatin Susp) 5 ml QID PO Last administered on 09/20/17 08:38; Admin Dose 5 ML; Start 09/15/17 at 17:00 Diagnostic Test (Pha) (Accu-Chek) 1 ea 02 XX ; Start 09/16/17 at 02:00 Insulin Glargine (Lantus) 10 unit QHS SC Last administered on 09/19/17 21:10; Admin Dose 10 UNIT; Start 09/18/17 at 21:00 Assessment/Plan Chief Complaint/Hosp Course SUBJECTIVE: Alert, feels good. No fevers. PHYSICAL EXAMINATION: GENERAL: This is an obese, well-developed, elderly woman who is in no distress. HEENT: Head atraumatic, normocephalic. Sclerae anicteric. Buccal mucosa dry. NECK: Supple. CHEST: Rise symmetrical. Breath sounds diminished to bases. HEART: S1, S2. ABDOMEN: Soft. Bowel tones present. EXTREMITIES: With resolved erythema and edema of her left lower extremity. ASSESSMENT: 1. S/p sepsis. 2. Status post acute hypoxemic respiratory failure secondary to fluid overload and bilateral pneumonia. 3. S/p Left lower extremity cellulitis. 4. Status post neutropenia and pancytopenia. 5. Acute on possible chronic kidney disease. PLAN: The patient remains stable, off abx, continue management per primary team and consultants, repeat cx's prn. [facility] staff Problems: CODY VASQUEZ NP Sep 20, 2017 12:08
--- NOTE | 2017-09-20 13:00 | PN ---
Date/Time of Note Date/Time of Note DATE: 09/20/17 TIME: 12:55 Assessment/Plan Lines/Catheters IV Catheter Type (from [facility]): Saline Lock Reina in Place (from [facility]): Yes Assessment/Plan Chief Complaint/Hosp Course 1. Left lower extremity cellulitis and edema with history of diabetes;CT lower extremity without abscess: much improved -continue supportive measures -elevate above heart level -local care for skin dryness with moisturizer 2. Leukocytosis, without fevers, with history of leukopenia: normalized; afebrile -per heme 3. Diabetes -Nutrition medication optimization -Encourage weight loss 4. Hypertension -Nutrition medication optimization -Encourage weight loss 5. Chronic kidney disease: -Judicious fluid management -Avoid nephrotoxic agents 6. Bilateral ground glass changes on CT: f/u cxr: Improving bilateral heterogeneous air space opacities and interval decrease in size of the small bilateral pleural effusions; breathing comfortably, -s/p abx -pulm toilette 7. Hypoalbuminemia with hypocalcemia -Nutritional optimization 8. Anemia: no acute bleed noted -monitor -transfuse as needed -per heme 9. Electrolyte imbalance -optimize lytes 10. Pl Effusion: as above; no sob -diuresis -supportive Thank you. Patient seen and examined in collaboration with Dr. William Russ. Problems: Subjective 24 Hr Interval Summary Appears comfortable. No fevers, chills, sob, congested cough, cp, palpitations, walsh, dizziness, n/v/d/dysuria. Left leg edema resolved. Discoloration improved. Exam/Review of Systems Vital Signs Vitals Vital Signs Date Time Temp Pulse Resp B/P Pulse Ox O2 Delivery O2 Flow Rate FiO2 09/20/17 08:46 74 20 97 Nasal Cannula 2.0 09/20/17 07:45 98.1 127/59 09/18/17 18:00 28 Intake and Output 09/19/17 09/19/17 09/20/17 15:00 23:00 07:00 Intake Total 420 ml 820 ml 120 ml Output Total 800 ml 600 ml 500 ml Balance -380 ml 220 ml -380 ml Exam Free Text/Dictation Constitutional: obese, other (Awake), No distress Psych: nl mood/affect, No anxiety Head: atraumatic, normocephalic Eyes: EOMI, PERRL, nl conjunctiva, No icteric ENMT: mucosa pink and dry, nl external ears & nose, nl lips & teeth Neck: non-tender, supple, No jvd Respiratory: Breathing nonlabored, No congested cough; nc Cardiovascular: no edema, regular rate and rhythm Gastrointestinal: non-tender, soft, No rebound or guarding Musculoskeletal: joint tenderness, No nl extremities to inspection Extremities: no edema, normal pulses, tenderness, No calf tenderness Neurological: nl mental status, nl strength Skin: rash or lesions (LLE improved color), No diaphoresis, No nl turgor Lymph: nl lymph nodes, nontender Results Result Diagram: 09/20/17 0537 09/20/17 0537 EDMUND KINCAID NP Sep 20, 2017 13:00
--- NOTE | 2017-09-20 13:35 | CONS ---
Date/Time of Note Date/Time of Note DATE: 09/20/17 TIME: 13:34 Consult Date/Type/Reason Admit Date/Time Aug 24, 2017 at 19:05 Initial Consult Date 08/31/17 Type of Consultation: Pulmonary Ordering Provider: GIA DUMONT Subjective Patient remains comfortable no significant events overnight. Objective Vital Signs Date Time Temp Pulse Resp B/P Pulse Ox O2 Delivery O2 Flow Rate FiO2 09/20/17 08:46 74 20 97 Nasal Cannula 2.0 09/20/17 07:45 98.1 127/59 09/18/17 18:00 28 Intake and Output 09/19/17 09/19/17 09/20/17 15:00 23:00 07:00 Intake Total 420 ml 820 ml 120 ml Output Total 800 ml 600 ml 500 ml Balance -380 ml 220 ml -380 ml Exam GENERAL: Elderly appearing lady comfortable at rest VITAL SIGNS: per chart NECK: Supple. No JVD or lymphadenopathy. CARDIAC EXAM: S1, S2. No added sounds or murmurs. CHEST: clear bilaterally, No added sounds, rales or wheezes ABDOMEN: Soft, nontender. No guarding or rebound. EXTREMITIES: No cyanosis, clubbing or edema. NEUROLOGIC: Generalized weakness. No focal deficits. Results/Medications Result Diagram: 09/20/1737 09/20/17 0537 Results 24 hrs Laboratory Tests Test 09/19/17 17:23 09/19/17 21:02 09/20/17 05:37 09/20/17 08:09 Bedside Glucose 187 178 118 White Blood Count 8.7 # Red Blood Count 2.63 L Hemoglobin 7.5 L Hematocrit 24.7 L Mean Corpuscular Volume 93.9 Mean Corpuscular Hemoglobin 28.5 L Mean Corpuscular Hemoglobin Concent 30.4 L Red Cell Distribution Width 17.0 H Platelet Count 490 H Mean Platelet Volume 9.5 Neutrophils % 53.9 Lymphocytes % 15.2 Monocytes % 24.5 H Eosinophils % 0.3 Basophils % 1.0 Nucleated Red Blood Cells % 0.0 Neutrophils # 4.7 Lymphocytes # 1.3 Monocytes # 2.1 H Eosinophils # 0.0 Basophils # 0.1 Nucleated Red Blood Cells # 0.0 Absolute Reticulocyte Count 0.174 H Percent Reticulocyte Count 6.8 H Sodium Level 136 Potassium Level 4.6 Chloride Level 100 Carbon Dioxide Level 28 Anion Gap 13 Blood Urea Nitrogen 39 H Creatinine 3.00 H Glucose Level 118 Calcium Level 8.5 Phosphorus Level 4.7 Magnesium Level 2.1 Albumin 2.7 L Test 09/20/17 11:56 Bedside Glucose 197 Medications Current Medications Ondansetron HCl (Zofran Inj) 4 mg Q6H PRN IV NAUSEA AND/OR VOMITING Last administered on 09/04/17 13:47; Admin Dose 4 MG; Start 08/25/17 at 08:00 Morphine Sulfate (morphine) 2 mg Q4H PRN IV PAIN Last administered on 09/01/17 20:06; Admin Dose 2 MG; Start 08/25/17 at 08:00 Loratadine (Claritin) 10 mg DAILY PO Last administered on 09/20/17 08:40; Admin Dose 10 MG; Start 08/25/17 at 09:00 Losartan Potassium (Cozaar) 50 mg DAILY PO Last administered on 09/20/17 08:41 ; Admin Dose 50 MG; Start 08/25/17 at 09:00 Miscellaneous Information 1 ea NOTE XX ; Start 08/25/17 at 14:00 Glucose (Glutose) 15 gm Q15M PRN PO DECREASED GLUCOSE; Start 08/25/17 at 14:00 Glucose (Glutose) 22.5 gm Q15M PRN PO DECREASED GLUCOSE; Start 08/25/17 at 14: 00 Dextrose (D50w Syringe) 25 ml Q15M PRN IV DECREASED GLUCOSE Last administered on 09/05/17 12:07; Admin Dose 25 ML; Start 08/25/17 at 14:00 Dextrose (D50w Syringe) 50 ml Q15M PRN IV DECREASED GLUCOSE Last administered on 09/03/17 20:53; Admin Dose 50 ML; Start 08/25/17 at 14:00 Glucagon (Glucagen) 1 mg Q15M PRN IM DECREASED GLUCOSE; Start 08/25/17 at 14: 00 Glucose (Glutose) 15 gm Q15M PRN BUCCAL DECREASED GLUCOSE; Start 08/25/17 at 14:00 Acetaminophen (Tylenol Tab) 650 mg Q4H PRN PO PAIN AND OR ELEVATED TEMP Last administered on 09/18/17 18:17; Admin Dose 650 MG; Start 08/25/17 at 20:30 Miscellaneous Medication (Bax Susp) 10 ml TID PO Last administered on 12:38; Admin Dose 10 ML; Start 08/29/17 at 13:00 Morphine Sulfate (morphine) 1 mg Q4H PRN IV LESS THAN 5/10 PAIN Last administered on 09/01/17 13:10; Admin Dose 1 MG; Start 08/30/17 at 20:00 Hydralazine HCl (Apresoline) 10 mg Q6H PRN IV ELEVATED SYSTOLIC BP Last administered on 09/15/17 02:07; Admin Dose 10 MG; Start 09/01/17 at 21:30 Silver Sulfadiazine (Thermazene 1% 400 Gm) 1 applic BID TOP Last administered on 09/20/17 08:41; Admin Dose 1 APPLIC; Start 09/04/17 at 14:00 Hydralazine HCl (Apresoline) 10 mg Q4H PRN IV ELEVATED BLOOD PRESSURE Last administered on 09/16/17 02:33; Admin Dose 10 MG; Start 09/05/17 at 01:00 Heparin Sodium (Porcine) (Heparin (5000 Units/0.5 ml)) 5,000 unit Q8 SC Last administered on 09/20/17 05:33; Admin Dose 5,000 UNIT; Start 09/06/17 at 22:00 Epoetin Kashif (Epogen (Esrd)) 10,000 units TuThSa@17 SC Last administered on 17:33; Admin Dose 10,000 UNITS; Start 09/07/17 at 17:00 Amlodipine Besylate (Norvasc) 10 mg DAILY PO Last administered on 09/20/17 08: 39; Admin Dose 10 MG; Start 09/08/17 at 09:00 Potassium Chloride (Klor-Con 20) 20 meq DAILY PO Last administered on 08:39; Admin Dose 20 MEQ; Start 09/10/17 at 09:00 Bisoprolol Fumarate (Zebeta) 15 mg DAILY PO Last administered on 09/20/17 08: 38; Admin Dose 15 MG; Start 09/11/17 at 09:00 Hydralazine HCl (Apresoline) 50 mg TID PO Last administered on 09/20/17 12:40 ; Admin Dose 50 MG; Start 09/15/17 at 13:00 Nystatin (Nystatin Susp) 5 ml QID PO Last administered on 09/20/17 12:38; Admin Dose 5 ML; Start 09/15/17 at 17:00 Diagnostic Test (Pha) (Accu-Chek) 1 ea 02 XX ; Start 09/16/17 at 02:00 Insulin Glargine (Lantus) 10 unit QHS SC Last administered on 09/19/17 21:10; Admin Dose 10 UNIT; Start 09/18/17 at 21:00 Assessment/Plan Chief Complaint/Hosp Course IMPRESSION: 1. Hypoxemic respiratory insufficiency in the setting of hypertension, chronic kidney disease and volume overload. 2. Chest x-ray better today. Clinically improved. 3. Persistent infiltrates concerning for inflammatory versus infectious process. Persistent low-grade leukocytosis 4. Pancytopenia resolved likely secondary to methotrexate. Reticulocytosis noted RECOMMENDATIONS: 1. Continue antibiotics, findings noted. 2. renal recommendations. Continue diuresis as tolerated 3. Cardiac recommendations 4. Aspiration precautions 5. Decrease FiO2 as tolerated PT evaluation 6. Hematology recommendations Discharge planning Problems: TANI TOLEDO MD, [facility] Sep 20, 2017 13:34
[2017-09-20 13:44] VITALS: BP 139/64; RESP 20
--- NOTE | 2017-09-20 14:25 | CONS ---
Date/Time of Note Date/Time of Note DATE: 09/20/17 TIME: 14:24 Assessment/Plan Assessment/Plan Additional Assessment/Plan Acute decompensated diastolic congestive heart failure Preserved ejection fraction Hypertension Mild to moderate aortic valve stenosis Volume overload Sepsis Pneumonia Cellulitis Acute on chronic kidney disease -Overall respiratory status continues to improve, continue diuretics as per our nephrology colleagues. Antibiotics as per infectious disease. Blood pressure trend has improved, DC planning.. Consultation Date/Type/Reason Admit Date/Time Aug 24, 2017 at 19:05 Initial Consult Date 08/31/17 Type of Consultation: cv Referring Provider: GIA DUMONT 24 HR Interval Summary Free Text/Dictation Patient seen and examined, denies shortness of breath Exam/Review of Systems Vital Signs Vitals Vital Signs Date Time Temp Pulse Resp B/P Pulse Ox O2 Delivery O2 Flow Rate FiO2 09/20/17 13:44 97.7 78 20 139/64 98 09/20/17 08:46 Nasal Cannula 2.0 09/18/17 18:00 28 Intake and Output 09/19/17 09/19/17 09/20/17 15:00 23:00 07:00 Intake Total 420 ml 820 ml 120 ml Output Total 800 ml 600 ml 500 ml Balance -380 ml 220 ml -380 ml Exam Sleeping but arousable, no apparent distress Head: normocephalic Respiratory: other (Coarse breath sounds bilaterally, no wheezing) Cardiovascular: other (S1-S2 heard), regular rate and rhythm Gastrointestinal: bowel sounds, non-tender, soft Extremities: edema Results Result Diagram: 09/20/17 0537 09/20/17 0537 Results 24 hrs Laboratory Tests Test 09/19/17 17:23 09/19/17 21:02 09/20/17 05:37 09/20/17 08:09 Bedside Glucose 187 178 118 White Blood Count 8.7 # Red Blood Count 2.63 L Hemoglobin 7.5 L Hematocrit 24.7 L Mean Corpuscular Volume 93.9 Mean Corpuscular Hemoglobin 28.5 L Mean Corpuscular Hemoglobin Concent 30.4 L Red Cell Distribution Width 17.0 H Platelet Count 490 H Mean Platelet Volume 9.5 Neutrophils % 53.9 Lymphocytes % 15.2 Monocytes % 24.5 H Eosinophils % 0.3 Basophils % 1.0 Nucleated Red Blood Cells % 0.0 Neutrophils # 4.7 Lymphocytes # 1.3 Monocytes # 2.1 H Eosinophils # 0.0 Basophils # 0.1 Nucleated Red Blood Cells # 0.0 Absolute Reticulocyte Count 0.174 H Percent Reticulocyte Count 6.8 H Sodium Level 136 Potassium Level 4.6 Chloride Level 100 Carbon Dioxide Level 28 Anion Gap 13 Blood Urea Nitrogen 39 H Creatinine 3.00 H Glucose Level 118 Calcium Level 8.5 Phosphorus Level 4.7 Magnesium Level 2.1 Albumin 2.7 L Test 09/20/17 11:56 Bedside Glucose 197 Medications Medications Current Medications Ondansetron HCl (Zofran Inj) 4 mg Q6H PRN IV NAUSEA AND/OR VOMITING Last administered on 09/04/17 13:47; Admin Dose 4 MG; Start 08/25/17 at 08:00 Morphine Sulfate (morphine) 2 mg Q4H PRN IV PAIN Last administered on 09/01/17 20:06; Admin Dose 2 MG; Start 08/25/17 at 08:00 Loratadine (Claritin) 10 mg DAILY PO Last administered on 09/20/17 08:40; Admin Dose 10 MG; Start 08/25/17 at 09:00 Losartan Potassium (Cozaar) 50 mg DAILY PO Last administered on 09/20/17 08:41 ; Admin Dose 50 MG; Start 08/25/17 at 09:00 Miscellaneous Information 1 ea NOTE XX ; Start 08/25/17 at 14:00 Glucose (Glutose) 15 gm Q15M PRN PO DECREASED GLUCOSE; Start 08/25/17 at 14:00 Glucose (Glutose) 22.5 gm Q15M PRN PO DECREASED GLUCOSE; Start 08/25/17 at 14: 00 Dextrose (D50w Syringe) 25 ml Q15M PRN IV DECREASED GLUCOSE Last administered on 09/05/17 12:07; Admin Dose 25 ML; Start 08/25/17 at 14:00 Dextrose (D50w Syringe) 50 ml Q15M PRN IV DECREASED GLUCOSE Last administered on 09/03/17 20:53; Admin Dose 50 ML; Start 08/25/17 at 14:00 Glucagon (Glucagen) 1 mg Q15M PRN IM DECREASED GLUCOSE; Start 08/25/17 at 14: 00 Glucose (Glutose) 15 gm Q15M PRN BUCCAL DECREASED GLUCOSE; Start 08/25/17 at 14:00 Acetaminophen (Tylenol Tab) 650 mg Q4H PRN PO PAIN AND OR ELEVATED TEMP Last administered on 09/18/17 18:17; Admin Dose 650 MG; Start 08/25/17 at 20:30 Miscellaneous Medication (Bax Susp) 10 ml TID PO Last administered on 12:38; Admin Dose 10 ML; Start 08/29/17 at 13:00 Morphine Sulfate (morphine) 1 mg Q4H PRN IV LESS THAN 5/10 PAIN Last administered on 09/01/17 13:10; Admin Dose 1 MG; Start 08/30/17 at 20:00 Hydralazine HCl (Apresoline) 10 mg Q6H PRN IV ELEVATED SYSTOLIC BP Last administered on 09/15/17 02:07; Admin Dose 10 MG; Start 09/01/17 at 21:30 Silver Sulfadiazine (Thermazene 1% 400 Gm) 1 applic BID TOP Last administered on 09/20/17 08:41; Admin Dose 1 APPLIC; Start 09/04/17 at 14:00 Hydralazine HCl (Apresoline) 10 mg Q4H PRN IV ELEVATED BLOOD PRESSURE Last administered on 09/16/17 02:33; Admin Dose 10 MG; Start 09/05/17 at 01:00 Heparin Sodium (Porcine) (Heparin (5000 Units/0.5 ml)) 5,000 unit Q8 SC Last administered on 09/20/17 05:33; Admin Dose 5,000 UNIT; Start 09/06/17 at 22:00 Epoetin Kashif (Epogen (Esrd)) 10,000 units TuThSa@17 SC Last administered on 17:33; Admin Dose 10,000 UNITS; Start 09/07/17 at 17:00 Amlodipine Besylate (Norvasc) 10 mg DAILY PO Last administered on 09/20/17 08: 39; Admin Dose 10 MG; Start 09/08/17 at 09:00 Potassium Chloride (Klor-Con 20) 20 meq DAILY PO Last administered on 08:39; Admin Dose 20 MEQ; Start 09/10/17 at 09:00 Bisoprolol Fumarate (Zebeta) 15 mg DAILY PO Last administered on 09/20/17 08: 38; Admin Dose 15 MG; Start 09/11/17 at 09:00 Hydralazine HCl (Apresoline) 50 mg TID PO Last administered on 09/20/17 12:40 ; Admin Dose 50 MG; Start 09/15/17 at 13:00 Nystatin (Nystatin Susp) 5 ml QID PO Last administered on 09/20/17 12:38; Admin Dose 5 ML; Start 09/15/17 at 17:00 Diagnostic Test (Pha) (Accu-Chek) 1 02 XX ; Start 09/16/17 at 02:00 Insulin Glargine (Lantus) 10 unit QHS SC Last administered on 09/19/17 21:10; Admin Dose 10 UNIT; Start 09/18/17 at 21:00 Tj Marie DO Sep 20, 2017 14:25
--- NOTE | 2017-09-20 15:43 | PN ---
Date/Time of Note Date/Time of Note DATE: 09/20/17 TIME: 15:42 Assessment/Plan VTE Prophylaxis VTE Prophylaxis Intervention: ambulation Lines/Catheters IV Catheter Type (from [facility] Urinary Cath still in place: No Assessment/Plan Chief Complaint/Hosp Course Patient is a 61-year-old female with a past medical history of hypertension, diabetes, CKD who presented for left lower extremity cellulitis. 1. Acute respiratory distress secondary to Bilateral Pneumonia- improving - Doing well on 2L NC and saturating >90%. Will continue to wean off supplemental O2 - Completed course of antibiotics - Pulmonology consultation appreciated - On Neb treatments - Completed course of steroids 2. HTN - Bp more controlled - Continue monitoring and adjust as needed 3. Pulmonary edema- improving - Cardiology on board and recommendations appreciated - On Lasix which has been effective - patient saturating 99% on 2L. will wean 4. Acute on chronic diastolic congestive heart failure - continue lasix - Cardiology on board and recommendations appreciated - ECHO results noted 5. Left lower extremity cellulitis- resolving - ID and Surgery on board. Recommendations appreciated - Antibiotic per ID - CT LE showed cellulitis and no evidence of osteomyelitis. Xray LE also performed and no osteomyelitis appreciated. -gen surg/vascular surg do not feel any acute intervention is needed 6. Mucositis 2/2 methotrexate use- improved - diphen/lido/mal oral solution ordered. Morphine if pain remain intolerable for PO intake - Tolerating soft mech diet, will advance 7. Pancytopenia- improved - now leukocytosis, possible due to filgrastim per heme/onc - Hgb still low, but no need for transfusions at this time. Will transfuse if < 7 - Hematology on board and recommendations appreciated. - s/p multiple blood transfusions and plt transfusions. 8. Leukocytosis- trending down - Continue to monitor. May be secondary to Neupogen 9. Neutropenia- resolved - WBC downtrending now <15 and Neupogen no longer on board - Will continue to monitor - Heme on board and recommendations appreciated 10. BK vs BK on CKD - Nephrology on board and recommendations appreciated. - Cr starting to rise again - Monitor UOP - HIV negative, KASSY negative 11. Hypokalemia - K 4.4. stable 12. Eosinophilia - normalized after d/c sulfasalazine and mtx 13. Vascular insufficiency - Vascular surgery on board and recommendations appreciated. No current vascular intervention as the patient has not developed any gangrene or ulcers - Will need to follow up as outpatient due to LE atherosclerosis 14. Disposition - awaiting SNF placement Problems: Subjective 24 Hr Interval Summary Free Text/Dictation no acute issues Exam/Review of Systems Vital Signs Vitals Vital Signs Date Time Temp Pulse Resp B/P Pulse Ox O2 Delivery O2 Flow Rate FiO2 09/20/17 13:44 97.7 78 20 139/64 98 09/20/17 08:46 Nasal Cannula 2.0 09/18/17 18:00 28 Intake and Output 09/19/17 09/19/17 09/20/17 15:00 23:00 07:00 Intake Total 420 ml 820 ml 120 ml Output Total 800 ml 600 ml 500 ml Balance -380 ml 220 ml -380 ml Exam General: Patient is resting comfortably and in NAD Head: Normocephalic atraumatic Eyes: EOMI, pupils reactive to light Neck: Supple, nontender, midline Respiratory: crackles bases, diminished breath sounds, no wheezing Cardiovascular: regular rate, no obvious murmurs Gastrointestinal: non-tender to palpation, bowel sounds heard. soft, nondistended Neurological: Moves all extremities spontaneously Skin: LLE dryness of skin. no tenderness Results Result Diagram: 09/20/1737 09/20/17 0537 Results 24 hrs Laboratory Tests Test 09/19/17 17:23 09/19/17 21:02 09/20/17 05:37 09/20/17 08:09 Bedside Glucose 187 178 118 White Blood Count 8.7 # Red Blood Count 2.63 L Hemoglobin 7.5 L Hematocrit 24.7 L Mean Corpuscular Volume 93.9 Mean Corpuscular Hemoglobin 28.5 L Mean Corpuscular Hemoglobin Concent 30.4 L Red Cell Distribution Width 17.0 H Platelet Count 490 H Mean Platelet Volume 9.5 Neutrophils % 53.9 Lymphocytes % 15.2 Monocytes % 24.5 H Eosinophils % 0.3 Basophils % 1.0 Nucleated Red Blood Cells % 0.0 Neutrophils # 4.7 Lymphocytes # 1.3 Monocytes # 2.1 H Eosinophils # 0.0 Basophils # 0.1 Nucleated Red Blood Cells # 0.0 Absolute Reticulocyte Count 0.174 H Percent Reticulocyte Count 6.8 H Sodium Level 136 Potassium Level 4.6 Chloride Level 100 Carbon Dioxide Level 28 Anion Gap 13 Blood Urea Nitrogen 39 H Creatinine 3.00 H Glucose Level 118 Calcium Level 8.5 Phosphorus Level 4.7 Magnesium Level 2.1 Albumin 2.7 L Test 09/20/17 11:56 Bedside Glucose 197 Medications Medications Current Medications Ondansetron HCl (Zofran Inj) 4 mg Q6H PRN IV NAUSEA AND/OR VOMITING Last administered on 09/04/17 13:47; Admin Dose 4 MG; Start 08/25/17 at 08:00 Morphine Sulfate (morphine) 2 mg Q4H PRN IV PAIN Last administered on 09/01/17 20:06; Admin Dose 2 MG; Start 08/25/17 at 08:00 Loratadine (Claritin) 10 mg DAILY PO Last administered on 09/20/17 08:40; Admin Dose 10 MG; Start 08/25/17 at 09:00 Losartan Potassium (Cozaar) 50 mg DAILY PO Last administered on 09/20/17 08:41 ; Admin Dose 50 MG; Start 08/25/17 at 09:00 Miscellaneous Information 1 ea NOTE XX ; Start 08/25/17 at 14:00 Glucose (Glutose) 15 gm Q15M PRN PO DECREASED GLUCOSE; Start 08/25/17 at 14:00 Glucose (Glutose) 22.5 gm Q15M PRN PO DECREASED GLUCOSE; Start 08/25/17 at 14: 00 Dextrose (D50w Syringe) 25 ml Q15M PRN IV DECREASED GLUCOSE Last administered on 09/05/17 12:07; Admin Dose 25 ML; Start 08/25/17 at 14:00 Dextrose (D50w Syringe) 50 ml Q15M PRN IV DECREASED GLUCOSE Last administered on 09/03/17 20:53; Admin Dose 50 ML; Start 08/25/17 at 14:00 Glucagon (Glucagen) 1 mg Q15M PRN IM DECREASED GLUCOSE; Start 08/25/17 at 14: 00 Glucose (Glutose) 15 gm Q15M PRN BUCCAL DECREASED GLUCOSE; Start 08/25/17 at 14:00 Acetaminophen (Tylenol Tab) 650 mg Q4H PRN PO PAIN AND OR ELEVATED TEMP Last administered on 09/18/17 18:17; Admin Dose 650 MG; Start 08/25/17 at 20:30 Miscellaneous Medication (Bax Susp) 10 ml TID PO Last administered on 12:38; Admin Dose 10 ML; Start 08/29/17 at 13:00 Morphine Sulfate (morphine) 1 mg Q4H PRN IV LESS THAN 5/10 PAIN Last administered on 09/01/17 13:10; Admin Dose 1 MG; Start 08/30/17 at 20:00 Hydralazine HCl (Apresoline) 10 mg Q6H PRN IV ELEVATED SYSTOLIC BP Last administered on 09/15/17 02:07; Admin Dose 10 MG; Start 09/01/17 at 21:30 Silver Sulfadiazine (Thermazene 1% 400 Gm) 1 applic BID TOP Last administered on 09/20/17 08:41; Admin Dose 1 APPLIC; Start 09/04/17 at 14:00 Hydralazine HCl (Apresoline) 10 mg Q4H PRN IV ELEVATED BLOOD PRESSURE Last administered on 09/16/17 02:33; Admin Dose 10 MG; Start 09/05/17 at 01:00 Heparin Sodium (Porcine) (Heparin (5000 Units/0.5 ml)) 5,000 unit Q8 SC Last administered on 09/20/17 05:33; Admin Dose 5,000 UNIT; Start 09/06/17 at 22:00 Epoetin Kashif (Epogen (Esrd)) 10,000 units TuThSa@17 SC Last administered on 17:33; Admin Dose 10,000 UNITS; Start 09/07/17 at 17:00 Amlodipine Besylate (Norvasc) 10 mg DAILY PO Last administered on 09/20/17 08: 39; Admin Dose 10 MG; Start 09/08/17 at 09:00 Potassium Chloride (Klor-Con 20) 20 meq DAILY PO Last administered on 08:39; Admin Dose 20 MEQ; Start 09/10/17 at 09:00 Bisoprolol Fumarate (Zebeta) 15 mg DAILY PO Last administered on 09/20/17 08: 38; Admin Dose 15 MG; Start 09/11/17 at 09:00 Hydralazine HCl (Apresoline) 50 mg TID PO Last administered on 09/20/17 12:40 ; Admin Dose 50 MG; Start 09/15/17 at 13:00 Nystatin (Nystatin Susp) 5 ml QID PO Last administered on 09/20/17 12:38; Admin Dose 5 ML; Start 09/15/17 at 17:00 Diagnostic Test (Pha) (Accu-Chek) 1 02 XX ; Start 09/16/17 at 02:00 Insulin Glargine (Lantus) 10 unit QHS SC Last administered on 09/19/17 21:10; Admin Dose 10 UNIT; Start 09/18/17 at 21:00 GIA DUMONT Sep 20, 2017 15:43
[2017-09-20 20:00] VITALS: BP 133/69; RESP 20
[2017-09-20] MEDS: INSULIN GLARGINE [LANtus] 3 ML PEN SC SCH (21:00)
--- NOTE | 2017-09-20 23:05 | CONS ---
Date/Time of Note Date/Time of Note DATE: 09/20/17 TIME: 23:04 Assessment/Plan Assessment/Plan Chief Complaint/Hosp Course 1. acute on-chronic kidney disease due to underlying sepsis/meds 2 Underlying acute tubular necrosis,better 3 Likely underlying diabetic nephropathy, underlying hypertensive nephrosclerosis 4 pancytopenia could be due to sepsis, as well as drug-induced mthx/sulpha better 5. Hyponatremia. resolved 6. METABOLIC ACIDOSIS BETTER 7 Nephrotic range proteinuria 8 leg edema better 9 PNEUMONIA AND PUL EDEMA BETTER 10 ckd w high cr PLAN CK LABS fluid res f/u labs Problems: Consultation Date/Type/Reason Admit Date/Time Aug 24, 2017 at 19:05 Initial Consult Date RENAL F/U Referring Provider: GIA DUMONT 24 HR Interval Summary Constitutional: other (no sob) Exam/Review of Systems Vital Signs Vitals Vital Signs Date Time Temp Pulse Resp B/P Pulse Ox O2 Delivery O2 Flow Rate FiO2 09/20/17 21:00 97 2.0 09/20/17 21:00 77 18 Nasal Cannula 09/20/17 13:44 97.7 139/64 09/18/17 18:00 28 Intake and Output 09/19/17 09/19/17 09/20/17 14:59 22:59 06:59 Intake Total 420 ml 820 ml 120 ml Output Total 800 ml 600 ml 500 ml Balance -380 ml 220 ml -380 ml Exam Respiratory: diminished breath sounds Cardiovascular: regular rate and rhythm Gastrointestinal: bowel sounds (+), soft Extremities: edema (less) Results Result Diagram: 09/20/17 0537 09/20/17 0537 Results 24 hrs Laboratory Tests Test 09/20/17 05:37 09/20/17 08:09 09/20/17 11:56 09/20/17 17:14 White Blood Count 8.7 # Red Blood Count 2.63 L Hemoglobin 7.5 L Hematocrit 24.7 L Mean Corpuscular Volume 93.9 Mean Corpuscular Hemoglobin 28.5 L Mean Corpuscular Hemoglobin Concent 30.4 L Red Cell Distribution Width 17.0 H Platelet Count 490 H Mean Platelet Volume 9.5 Neutrophils % 53.9 Lymphocytes % 15.2 Monocytes % 24.5 H Eosinophils % 0.3 Basophils % 1.0 Nucleated Red Blood Cells % 0.0 Neutrophils # 4.7 Lymphocytes # 1.3 Monocytes # 2.1 H Eosinophils # 0.0 Basophils # 0.1 Nucleated Red Blood Cells # 0.0 Absolute Reticulocyte Count 0.174 H Percent Reticulocyte Count 6.8 H Sodium Level 136 Potassium Level 4.6 Chloride Level 100 Carbon Dioxide Level 28 Anion Gap 13 Blood Urea Nitrogen 39 H Creatinine 3.00 H Glucose Level 118 Calcium Level 8.5 Phosphorus Level 4.7 Magnesium Level 2.1 Albumin 2.7 L Bedside Glucose 118 197 189 Medications Medications Current Medications Ondansetron HCl (Zofran Inj) 4 mg Q6H PRN IV NAUSEA AND/OR VOMITING Last administered on 09/04/17 13:47; Admin Dose 4 MG; Start 08/25/17 at 08:00 Morphine Sulfate (morphine) 2 mg Q4H PRN IV PAIN Last administered on 09/01/17 20:06; Admin Dose 2 MG; Start 08/25/17 at 08:00 Loratadine (Claritin) 10 mg DAILY PO Last administered on 09/20/17 08:40; Admin Dose 10 MG; Start 08/25/17 at 09:00 Losartan Potassium (Cozaar) 50 mg DAILY PO Last administered on 09/20/17 08:41 ; Admin Dose 50 MG; Start 08/25/17 at 09:00 Miscellaneous Information 1 ea NOTE XX ; Start 08/25/17 at 14:00 Glucose (Glutose) 15 gm Q15M PRN PO DECREASED GLUCOSE; Start 08/25/17 at 14:00 Glucose (Glutose) 22.5 gm Q15M PRN PO DECREASED GLUCOSE; Start 08/25/17 at 14: 00 Dextrose (D50w Syringe) 25 ml Q15M PRN IV DECREASED GLUCOSE Last administered on 09/05/17 12:07; Admin Dose 25 ML; Start 08/25/17 at 14:00 Dextrose (D50w Syringe) 50 ml Q15M PRN IV DECREASED GLUCOSE Last administered on 09/03/17 20:53; Admin Dose 50 ML; Start 08/25/17 at 14:00 Glucagon (Glucagen) 1 mg Q15M PRN IM DECREASED GLUCOSE; Start 08/25/17 at 14: 00 Glucose (Glutose) 15 gm Q15M PRN BUCCAL DECREASED GLUCOSE; Start 08/25/17 at 14:00 Acetaminophen (Tylenol Tab) 650 mg Q4H PRN PO PAIN AND OR ELEVATED TEMP Last administered on 09/18/17 18:17; Admin Dose 650 MG; Start 08/25/17 at 20:30 Miscellaneous Medication (Bax Susp) 10 ml TID PO Last administered on 12:38; Admin Dose 10 ML; Start 08/29/17 at 13:00 Morphine Sulfate (morphine) 1 mg Q4H PRN IV LESS THAN 5/10 PAIN Last administered on 09/01/17 13:10; Admin Dose 1 MG; Start 08/30/17 at 20:00 Hydralazine HCl (Apresoline) 10 mg Q6H PRN IV ELEVATED SYSTOLIC BP Last administered on 09/15/17 02:07; Admin Dose 10 MG; Start 09/01/17 at 21:30 Silver Sulfadiazine (Thermazene 1% 400 Gm) 1 applic BID TOP Last administered on 09/20/17 08:41; Admin Dose 1 APPLIC; Start 09/04/17 at 14:00 Hydralazine HCl (Apresoline) 10 mg Q4H PRN IV ELEVATED BLOOD PRESSURE Last administered on 09/16/17 02:33; Admin Dose 10 MG; Start 09/05/17 at 01:00 Heparin Sodium (Porcine) (Heparin (5000 Units/0.5 ml)) 5,000 unit Q8 SC Last administered on 09/20/17 15:42; Admin Dose 5,000 UNIT; Start 09/06/17 at 22:00 Epoetin Kasihf (Epogen (Esrd)) 10,000 units TuThSa@17 SC Last administered on 17:33; Admin Dose 10,000 UNITS; Start 09/07/17 at 17:00 Amlodipine Besylate (Norvasc) 10 mg DAILY PO Last administered on 09/20/17 08: 39; Admin Dose 10 MG; Start 09/08/17 at 09:00 Potassium Chloride (Klor-Con 20) 20 meq DAILY PO Last administered on 08:39; Admin Dose 20 MEQ; Start 09/10/17 at 09:00 Bisoprolol Fumarate (Zebeta) 15 mg DAILY PO Last administered on 09/20/17 08: 38; Admin Dose 15 MG; Start 09/11/17 at 09:00 Hydralazine HCl (Apresoline) 50 mg TID PO Last administered on 09/20/17 12:40 ; Admin Dose 50 MG; Start 09/15/17 at 13:00 Nystatin (Nystatin Susp) 5 ml QID PO Last administered on 09/20/17 12:38; Admin Dose 5 ML; Start 09/15/17 at 17:00 Diagnostic Test (Pha) (Accu-Chek) 1 ea 02 XX ; Start 09/16/17 at 02:00 Insulin Glargine (Lantus) 10 unit QHS SC Last administered on 09/19/17 21:10; Admin Dose 10 UNIT; Start 09/18/17 at 21:00 JENNA PATTEN MD Sep 20, 2017 23:05
[2017-09-21] MEDS: ALBUTEROL/IPRATROPIUM (NEB) 3 ML AMP HHN SCH ×5 (00:57→16:33)
[2017-09-21 02:00] VITALS: BP 133/61; RESP 20
[2017-09-21] MEDS: ACCU-CHEK XX SCH ×4 (02:00→17:21)
[2017-09-21] MEDS: FUROSEMIDE 20 MG TAB PO SCH ×2 (05:13→17:21)
[2017-09-21] MEDS: HEPARIN 5,000 UNIT/0.5 ML VIAL SC SCH ×2 (05:20→14:12)
[2017-09-21 07:57] VITALS: BP 142/61; RESP 20
[2017-09-21] MEDS: INSULIN ASPART [NOVOLOG] 3 ML PEN SC SCH ×3 (08:15→17:51)
[2017-09-21] MEDS: LORATADINE 10 MG TAB PO SCH (08:45)
[2017-09-21] MEDS: POTASSIUM CHLORIDE (SR) 20 MEQ TAB PO SCH (08:45)
[2017-09-21] MEDS: AMLODIPINE 10 MG TAB PO SCH (08:45)
[2017-09-21] MEDS: BISOPROLOL 5 MG TAB PO SCH (08:46)
[2017-09-21] MEDS: LOSARTAN 50 MG TAB PO SCH (08:46)
[2017-09-21] MEDS: SILVER SULFADIAZINE 1% 400 GM CR TOP SCH ×2 (08:47)
[2017-09-21] MEDS: DIPHENHYD/MYLANTA/LIDO (PO SYG) PO SCH ×2 (08:47→12:07)
[2017-09-21] MEDS: NYSTATIN SUSP 5 ML CUP PO SCH ×3 (08:52→17:19)
[2017-09-21 08:56] VITALS: BP 133/63; PULSE 70
--- NOTE | 2017-09-21 11:17 | CONS ---
Date/Time of Note Date/Time of Note DATE: 09/21/17 TIME: : Consult Date/Type/Reason Admit Date/Time Aug 24, 2017 at 19:05 Initial Consult Date 08/31/17 Type of Consultation: Pulmonary Ordering Provider: GIA DUMONT Subjective Patient remained stable no new events. Pending placement. Objective Vital Signs Date Time Temp Pulse Resp B/P Pulse Ox O2 Delivery O2 Flow Rate FiO2 09/21/17 11:12 Nasal Cannula 2.0 09/21/17 08:56 70 133/63 09/21/17 07:57 98.9 20 99 09/18/17 18:00 28 Intake and Output 09/20/17 09/20/17 09/21/17 15:00 23:00 07:00 Intake Total 120 ml Output Total 300 ml Balance -180 ml Exam GENERAL: Elderly appearing lady comfortable at rest VITAL SIGNS: per chart NECK: Supple. No JVD or lymphadenopathy. CARDIAC EXAM: S1, S2. No added sounds or murmurs. CHEST: clear bilaterally, No added sounds, rales or wheezes ABDOMEN: Soft, nontender. No guarding or rebound. EXTREMITIES: No cyanosis, clubbing or edema. NEUROLOGIC: Generalized weakness. No focal deficits. Results/Medications Result Diagram: 09/20/17 0537 09/21/17 0517 Results 24 hrs Laboratory Tests Test 09/20/17 11:56 09/20/17 17:14 09/20/17 21:24 09/21/17 05:17 Bedside Glucose 197 189 140 Sodium Level 135 Potassium Level 4.8 Chloride Level 103 Carbon Dioxide Level 27 Anion Gap 10 Blood Urea Nitrogen 38 H Creatinine 3.33 H Glucose Level 95 Calcium Level 8.7 Total Bilirubin 0.1 L Direct Bilirubin 0.00 Indirect Bilirubin 0.1 Aspartate Amino Transf (AST/SGOT) 37 Alanine Aminotransferase (ALT/SGPT) 31 Alkaline Phosphatase 119 Total Protein 6.9 Albumin 2.8 L Globulin 4.10 H Albumin/Globulin Ratio 0.68 Test 09/21/17 08:20 Bedside Glucose 99 Medications Current Medications Ondansetron HCl (Zofran Inj) 4 mg Q6H PRN IV NAUSEA AND/OR VOMITING Last administered on 09/04/17t 13:47; Admin Dose 4 MG; Start 08/25/17 at 08:00 Morphine Sulfate (morphine) 2 mg Q4H PRN IV 5-08/24 PAIN Last administered on 09/01/17 20:06; Admin Dose 2 MG; Start 08/25/17 at 08:00 Loratadine (Claritin) 10 mg DAILY PO Last administered on 09/21/17 08:45; Admin Dose 10 MG; Start 08/25/17 at 09:00 Losartan Potassium (Cozaar) 50 mg DAILY PO Last administered on 09/21/17 08:46 ; Admin Dose 50 MG; Start 08/25/17 at 09:00 Miscellaneous Information 1 ea NOTE XX ; Start 08/25/17 at 14:00 Glucose (Glutose) 15 gm Q15M PRN PO DECREASED GLUCOSE; Start 08/25/17 at 14:00 Glucose (Glutose) 22.5 gm Q15M PRN PO DECREASED GLUCOSE; Start 08/25/17 at 14: 00 Dextrose (D50w Syringe) 25 ml Q15M PRN IV DECREASED GLUCOSE Last administered on 09/05/17 12:07; Admin Dose 25 ML; Start 08/25/17 at 14:00 Dextrose (D50w Syringe) 50 ml Q15M PRN IV DECREASED GLUCOSE Last administered on 09/03/17 20:53; Admin Dose 50 ML; Start 08/25/17 at 14:00 Glucagon (Glucagen) 1 mg Q15M PRN IM DECREASED GLUCOSE; Start 08/25/17 at 14: 00 Glucose (Glutose) 15 gm Q15M PRN BUCCAL DECREASED GLUCOSE; Start 08/25/17 at 14:00 Acetaminophen (Tylenol Tab) 650 mg Q4H PRN PO PAIN AND OR ELEVATED TEMP Last administered on 09/18/17 18:17; Admin Dose 650 MG; Start 08/25/17 at 20:30 Miscellaneous Medication (Bax Susp) 10 ml TID PO Last administered on 08:47; Admin Dose 10 ML; Start 08/29/17 at 13:00 Morphine Sulfate (morphine) 1 mg Q4H PRN IV LESS THAN 5/10 PAIN Last administered on 09/01/17 13:10; Admin Dose 1 MG; Start 08/30/17 at 20:00 Hydralazine HCl (Apresoline) 10 mg Q6H PRN IV ELEVATED SYSTOLIC BP Last administered on 09/15/17 02:07; Admin Dose 10 MG; Start 09/01/17 at 21:30 Silver Sulfadiazine (Thermazene 1% 400 Gm) 1 applic BID TOP Last administered on 09/21/17 08:47; Admin Dose 1 APPLIC; Start 09/04/17 at 14:00 Hydralazine HCl (Apresoline) 10 mg Q4H PRN IV ELEVATED BLOOD PRESSURE Last administered on 09/16/17 02:33; Admin Dose 10 MG; Start 09/05/17 at 01:00 Heparin Sodium (Porcine) (Heparin (5000 Units/0.5 ml)) 5,000 unit Q8 SC Last administered on 09/21/17 05:20; Admin Dose 5,000 UNIT; Start 09/06/17 at 22:00 Epoetin Kashif (Epogen (Esrd)) 10,000 units TuThSa@17 SC Last administered on 17:33; Admin Dose 10,000 UNITS; Start 09/07/17 at 17:00 Amlodipine Besylate (Norvasc) 10 mg DAILY PO Last administered on 09/21/17 08: 45; Admin Dose 10 MG; Start 09/08/17 at 09:00 Potassium Chloride (Klor-Con 20) 20 meq DAILY PO Last administered on 08:45; Admin Dose 20 MEQ; Start 09/10/17 at 09:00 Bisoprolol Fumarate (Zebeta) 15 mg DAILY PO Last administered on 09/21/17 08: 46; Admin Dose 15 MG; Start 09/11/17 at 09:00 Hydralazine HCl (Apresoline) 50 mg TID PO Last administered on 09/21/17 08:46 ; Admin Dose 50 MG; Start 09/15/17 at 13:00 Nystatin (Nystatin Susp) 5 ml QID PO Last administered on 09/21/17 08:52; Admin Dose 5 ML; Start 09/15/17 at 17:00 Diagnostic Test (Pha) (Accu-Chek) 1 ea 02 XX ; Start 09/16/17 at 02:00 Insulin Glargine (Lantus) 10 unit QHS SC Last administered on 09/20/17 21:00; Admin Dose 10 UNIT; Start 09/18/17 at 21:00 Assessment/Plan Chief Complaint/Hosp Course IMPRESSION: 1. Hypoxemic respiratory insufficiency in the setting of hypertension, chronic kidney disease and volume overload. 2. Chest x-ray better today. Clinically improved. 3. Persistent infiltrates concerning for inflammatory versus infectious process. Persistent low-grade leukocytosis 4. Pancytopenia resolved likely secondary to methotrexate. Reticulocytosis noted RECOMMENDATIONS: 1. Continue antibiotics, findings noted. 2. renal recommendations. Continue diuresis as tolerated 3. Cardiac recommendations 4. Aspiration precautions 5. Decrease FiO2 as tolerated PT evaluation 6. Hematology recommendations Discharge planning Problems: TANI TOLEDO MD, [facility] Sep 21, 2017 11:17
--- NOTE | 2017-09-21 11:54 | CONS ---
Date/Time of Note Date/Time of Note DATE: 09/21/17 TIME: 11:53 Assessment/Plan Assessment/Plan Additional Assessment/Plan Acute decompensated diastolic congestive heart failure Preserved ejection fraction Hypertension Mild to moderate aortic valve stenosis Volume overload Sepsis Pneumonia Cellulitis Acute on chronic kidney disease -Overall respiratory status continues to improve, continue diuretics as per our nephrology colleagues. Antibiotics as per infectious disease. Blood pressure trend has improved, DC planning. Consultation Date/Type/Reason Admit Date/Time Aug 24, 2017 at 19:05 Initial Consult Date 08/31/17 Type of Consultation: cv Referring Provider: GIA DUMONT 24 HR Interval Summary Free Text/Dictation Denies shortness of breath Exam/Review of Systems Vital Signs Vitals Vital Signs Date Time Temp Pulse Resp B/P Pulse Ox O2 Delivery O2 Flow Rate FiO2 09/21/17 11:12 Nasal Cannula 2.0 09/21/17 08:56 70 133/63 09/21/17 07:57 98.9 20 99 09/18/17 18:00 28 Intake and Output 09/20/17 09/20/17 09/21/17 15:00 23:00 07:00 Intake Total 120 ml Output Total 300 ml Balance -180 ml Exam Sleeping but arousable, follows commands, no apparent distress Head: normocephalic Respiratory: other (Coarse breath sounds bilaterally, no wheezing) Cardiovascular: other (S1-S2 heard), regular rate and rhythm Gastrointestinal: bowel sounds, non-tender, soft Extremities: edema Results Result Diagram: 09/20/17 0537 09/21/17 0517 Results 24 hrs Laboratory Tests Test 09/20/17 11:56 09/20/17 17:14 09/20/17 21:24 09/21/17 05:17 Bedside Glucose 197 189 140 Sodium Level 135 Potassium Level 4.8 Chloride Level 103 Carbon Dioxide Level 27 Anion Gap 10 Blood Urea Nitrogen 38 H Creatinine 3.33 H Glucose Level 95 Calcium Level 8.7 Total Bilirubin 0.1 L Direct Bilirubin 0.00 Indirect Bilirubin 0.1 Aspartate Amino Transf (AST/SGOT) 37 Alanine Aminotransferase (ALT/SGPT) 31 Alkaline Phosphatase 119 Total Protein 6.9 Albumin 2.8 L Globulin 4.10 H Albumin/Globulin Ratio 0.68 Test 09/21/17 08:20 Bedside Glucose 99 Medications Medications Current Medications Ondansetron HCl (Zofran Inj) 4 mg Q6H PRN IV NAUSEA AND/OR VOMITING Last administered on 09/04/17 13:47; Admin Dose 4 MG; Start 08/25/17 at 08:00 Morphine Sulfate (morphine) 2 mg Q4H PRN IV 5-10/10 PAIN Last administered on 09/01/17 20:06; Admin Dose 2 MG; Start 08/25/17 at 08:00 Loratadine (Claritin) 10 mg DAILY PO Last administered on 09/21/17 08:45; Admin Dose 10 MG; Start 08/25/17 at 09:00 Losartan Potassium (Cozaar) 50 mg DAILY PO Last administered on 09/21/17 08:46 ; Admin Dose 50 MG; Start 08/25/17 at 09:00 Miscellaneous Information 1 ea NOTE XX ; Start 08/25/17 at 14:00 Glucose (Glutose) 15 gm Q15M PRN PO DECREASED GLUCOSE; Start 08/25/17 at 14:00 Glucose (Glutose) 22.5 gm Q15M PRN PO DECREASED GLUCOSE; Start 08/25/17 at 14: 00 Dextrose (D50w Syringe) 25 ml Q15M PRN IV DECREASED GLUCOSE Last administered on 09/05/17 12:07; Admin Dose 25 ML; Start 08/25/17 at 14:00 Dextrose (D50w Syringe) 50 ml Q15M PRN IV DECREASED GLUCOSE Last administered on 09/03/17 20:53; Admin Dose 50 ML; Start 08/25/17 at 14:00 Glucagon (Glucagen) 1 mg Q15M PRN IM DECREASED GLUCOSE; Start 08/25/17 at 14: 00 Glucose (Glutose) 15 gm Q15M PRN BUCCAL DECREASED GLUCOSE; Start 08/25/17 at 14:00 Acetaminophen (Tylenol Tab) 650 mg Q4H PRN PO PAIN AND OR ELEVATED TEMP Last administered on 09/18/17 18:17; Admin Dose 650 MG; Start 08/25/17 at 20:30 Miscellaneous Medication (Bax Susp) 10 ml TID PO Last administered on 08:47; Admin Dose 10 ML; Start 08/29/17 at 13:00 Morphine Sulfate (morphine) 1 mg Q4H PRN IV LESS THAN 5/10 PAIN Last administered on 09/01/17 13:10; Admin Dose 1 MG; Start 08/30/17 at 20:00 Hydralazine HCl (Apresoline) 10 mg Q6H PRN IV ELEVATED SYSTOLIC BP Last administered on 09/15/17 02:07; Admin Dose 10 MG; Start 09/01/17 at 21:30 Silver Sulfadiazine (Thermazene 1% 400 Gm) 1 applic BID TOP Last administered on 09/21/17 08:47; Admin Dose 1 APPLIC; Start 09/04/17 at 14:00 Hydralazine HCl (Apresoline) 10 mg Q4H PRN IV ELEVATED BLOOD PRESSURE Last administered on 09/16/17 02:33; Admin Dose 10 MG; Start 09/05/17 at 01:00 Heparin Sodium (Porcine) (Heparin (5000 Units/0.5 ml)) 5,000 unit Q8 SC Last administered on 09/21/17 05:20; Admin Dose 5,000 UNIT; Start 09/06/17 at 22:00 Epoetin Kashif (Epogen (Esrd)) 10,000 units TuThSa@17 SC Last administered on 17:33; Admin Dose 10,000 UNITS; Start 09/07/17 at 17:00 Amlodipine Besylate (Norvasc) 10 mg DAILY PO Last administered on 09/21/17 08: 45; Admin Dose 10 MG; Start 09/08/17 at 09:00 Potassium Chloride (Klor-Con 20) 20 meq DAILY PO Last administered on 08:45; Admin Dose 20 MEQ; Start 09/10/17 at 09:00 Bisoprolol Fumarate (Zebeta) 15 mg DAILY PO Last administered on 09/21/17 08: 46; Admin Dose 15 MG; Start 09/11/17 at 09:00 Hydralazine HCl (Apresoline) 50 mg TID PO Last administered on 09/21/17 08:46 ; Admin Dose 50 MG; Start 09/15/17 at 13:00 Nystatin (Nystatin Susp) 5 ml QID PO Last administered on 09/21/17 08:52; Admin Dose 5 ML; Start 09/15/17 at 17:00 Diagnostic Test (Pha) (Accu-Chek) 1 ea 02 XX ; Start 09/16/17 at 02:00 Insulin Glargine (Lantus) 10 unit QHS SC Last administered on 09/20/17t 21:00; Admin Dose 10 UNIT; Start 09/18/17 at 21:00 Tj Marie DO Sep 21, 2017 11:54
--- NOTE | 2017-09-21 11:58 | CONS ---
Date/Time of Note Date/Time of Note DATE: 09/21/17 TIME: 11:58 Consult Date/Type/Reason Admit Date/Time Aug 24, 2017 at 19:05 Initial Consult Date 08/29/17 Type of Consultation: id Ordering Provider: GAI DUMONT Objective Vital Signs Date Time Temp Pulse Resp B/P Pulse Ox O2 Delivery O2 Flow Rate FiO2 09/21/17 11:12 Nasal Cannula 2.0 09/21/17 08:56 70 133/63 09/21/17 07:57 98.9 20 99 09/18/17 18:00 28 Intake and Output 09/20/17 09/20/17 09/21/17 15:00 23:00 07:00 Intake Total 120 ml Output Total 300 ml Balance -180 ml Results/Medications Result Diagram: 09/20/1737 09/21/17516 Results 24 hrs Laboratory Tests Test 09/20/17 17:14 09/20/17 21:24 09/21/17 05:17 09/21/17 08:20 Bedside Glucose 189 140 99 Sodium Level 135 Potassium Level 4.8 Chloride Level 103 Carbon Dioxide Level 27 Anion Gap 10 Blood Urea Nitrogen 38 H Creatinine 3.33 H Glucose Level 95 Calcium Level 8.7 Total Bilirubin 0.1 L Direct Bilirubin 0.00 Indirect Bilirubin 0.1 Aspartate Amino Transf (AST/SGOT) 37 Alanine Aminotransferase (ALT/SGPT) 31 Alkaline Phosphatase 119 Total Protein 6.9 Albumin 2.8 L Globulin 4.10 H Albumin/Globulin Ratio 0.68 Medications Current Medications Ondansetron HCl (Zofran Inj) 4 mg Q6H PRN IV NAUSEA AND/OR VOMITING Last administered on 09/04/17 13:47; Admin Dose 4 MG; Start 08/25/17 at 08:00 Morphine Sulfate (morphine) 2 mg Q4H PRN IV 5-10 PAIN Last administered on 09/01/17 20:06; Admin Dose 2 MG; Start 08/25/17 at 08:00 Loratadine (Claritin) 10 mg DAILY PO Last administered on 09/21/17 08:45; Admin Dose 10 MG; Start 08/25/17 at 09:00 Losartan Potassium (Cozaar) 50 mg DAILY PO Last administered on 09/21/17 08:46 ; Admin Dose 50 MG; Start 08/25/17 at 09:00 Miscellaneous Information 1 ea NOTE XX ; Start 08/25/17 at 14:00 Glucose (Glutose) 15 gm Q15M PRN PO DECREASED GLUCOSE; Start 08/25/17 at 14:00 Glucose (Glutose) 22.5 gm Q15M PRN PO DECREASED GLUCOSE; Start 08/25/17 at 14: 00 Dextrose (D50w Syringe) 25 ml Q15M PRN IV DECREASED GLUCOSE Last administered on 09/05/17 12:07; Admin Dose 25 ML; Start 08/25/17 at 14:00 Dextrose (D50w Syringe) 50 ml Q15M PRN IV DECREASED GLUCOSE Last administered on 09/03/17 20:53; Admin Dose 50 ML; Start 08/25/17 at 14:00 Glucagon (Glucagen) 1 mg Q15M PRN IM DECREASED GLUCOSE; Start 08/25/17 at 14: 00 Glucose (Glutose) 15 gm Q15M PRN BUCCAL DECREASED GLUCOSE; Start 08/25/17 at 14:00 Acetaminophen (Tylenol Tab) 650 mg Q4H PRN PO PAIN AND OR ELEVATED TEMP Last administered on 09/18/17 18:17; Admin Dose 650 MG; Start 08/25/17 at 20:30 Miscellaneous Medication (Bax Susp) 10 ml TID PO Last administered on 08:47; Admin Dose 10 ML; Start 08/29/17 at 13:00 Morphine Sulfate (morphine) 1 mg Q4H PRN IV LESS THAN 5/10 PAIN Last administered on 09/01/17 13:10; Admin Dose 1 MG; Start 08/30/17 at 20:00 Hydralazine HCl (Apresoline) 10 mg Q6H PRN IV ELEVATED SYSTOLIC BP Last administered on 09/15/17 02:07; Admin Dose 10 MG; Start 09/01/17 at 21:30 Silver Sulfadiazine (Thermazene 1% 400 Gm) 1 applic BID TOP Last administered on 09/21/17 08:47; Admin Dose 1 APPLIC; Start 09/04/17 at 14:00 Hydralazine HCl (Apresoline) 10 mg Q4H PRN IV ELEVATED BLOOD PRESSURE Last administered on 09/16/17 02:33; Admin Dose 10 MG; Start 09/05/17 at 01:00 Heparin Sodium (Porcine) (Heparin (5000 Units/0.5 ml)) 5,000 unit Q8 SC Last administered on 09/21/17 05:20; Admin Dose 5,000 UNIT; Start 09/06/17 at 22:00 Epoetin Kashif (Epogen (Esrd)) 10,000 units TuThSa@17 SC Last administered on 17:33; Admin Dose 10,000 UNITS; Start 09/07/17 at 17:00 Amlodipine Besylate (Norvasc) 10 mg DAILY PO Last administered on 09/21/17 08: 45; Admin Dose 10 MG; Start 09/08/17 at 09:00 Potassium Chloride (Klor-Con 20) 20 meq DAILY PO Last administered on 08:45; Admin Dose 20 MEQ; Start 09/10/17 at 09:00 Bisoprolol Fumarate (Zebeta) 15 mg DAILY PO Last administered on 09/21/17 08: 46; Admin Dose 15 MG; Start 09/11/17 at 09:00 Hydralazine HCl (Apresoline) 50 mg TID PO Last administered on 09/21/17 08:46 ; Admin Dose 50 MG; Start 09/15/17 at 13:00 Nystatin (Nystatin Susp) 5 ml QID PO Last administered on 09/21/17 08:52; Admin Dose 5 ML; Start 09/15/17 at 17:00 Diagnostic Test (Pha) (Accu-Chek) 1 ea 02 XX ; Start 09/16/17 at 02:00 Insulin Glargine (Lantus) 10 unit QHS SC Last administered on 09/20/17 21:00; Admin Dose 10 UNIT; Start 09/18/17 at 21:00 Assessment/Plan Chief Complaint/Hosp Course SUBJECTIVE: Alert, feels good. No fevers. PHYSICAL EXAMINATION: GENERAL: This is an obese, well-developed, elderly woman who is in no distress. HEENT: Head atraumatic, normocephalic. Sclerae anicteric. Buccal mucosa dry. NECK: Supple. CHEST: Rise symmetrical. Breath sounds diminished to bases. HEART: S1, S2. ABDOMEN: Soft. Bowel tones present. EXTREMITIES: With resolved erythema and edema of her left lower extremity. ASSESSMENT: 1. S/p sepsis. 2. Status post acute hypoxemic respiratory failure secondary to fluid overload and bilateral pneumonia. 3. S/p Left lower extremity cellulitis. 4. Status post neutropenia and pancytopenia. 5. Acute on possible chronic kidney disease. PLAN: The patient remains stable, off abx, continue management per primary team and consultants, repeat cx's prn. DW staff Problems: CODY VASQUEZ NP Sep 21, 2017 11:58
[2017-09-21 12:13] VITALS: BP 132/63; PULSE 67
[2017-09-21 13:53] VITALS: BP 118/57; RESP 20
--- NOTE | 2017-09-21 14:38 | DS ---
Date/Time of Note Date/Time of Note DATE: 09/21/17 TIME: 14:38 Discharge Summary Admission/Discharge Info Admit Date/Time Aug 24, 2017 at 19:05 Discharge Date/Time Patient Condition: Stable Hx of Present Illness This is a 61-year-old female with a history of hypertension, insulin-dependent diabetes, CKD who was brought to the ER for left lower leg swelling and redness. Patient was diagnosed with a cellulitis as outpatient and has been taking antibiotic without significant improvement. She reported fever and generalized weakness. When she presented to the ER, she was febrile with a temperature of almost 103. She has a several lab abnormalities including a hemoglobin of 5.7 with MCV of , sodium 128, BUN 44, creatinine 4.8 AST in the 300s and ALT in the 100s, alk phos 174. Also thrombocytopenic with a platelet of 57 and neutropenic with a WBC of 0.7. Left lower extremity ultrasound was negative for DVT. Denied hematemesis, dark stool, BRBPR or vaginal bleeding. Hospital Course Patient is a 61-year-old [facility] female with a past medical history of hypertension, diabetes, CKD, methotrexate use secondary to arthritis who presented to [facility] for lower extremity cellulitis. Patient also had multiple other issues during her prolonged stay here at [facility] including pancytopenia. Multiple consultations were made including vascular surgery, oncology and hematology, cardiology, infectious disease, nephrology. It was found that patient likely had an complication to methotrexate which cause pancytopenia and it was reversed and patient's white count returned to within normal limits. Patient was also treated for cellulitis at the time with IV antibiotics as well as pneumonia. Patient also has a degree of congestive diastolic heart failure and was given the appropriate diuretics. Patient's respiratory status and overall condition improved drastically over the course of this admission and patient will be discharged on 2 L nasal cannula to a snf facility where she could obtain physical therapy as she is extremely deconditioned from a prolonged stay. Patient is to continue all medications and follow-up in the outpatient as she has already has a pending appointment with a shoe clerk and her primary care provider. She will likely need to re-make these appointments. Discharge diagnosis Acute respiratory distress secondary to bilateral pneumonia, pleural effusions Hypertension Left lower extremity cellulitis, resolved Pulmonary edema, resolving Acute kidney injury on chronic kidney disease Acute on chronic diastolic congestive heart failure Mucositis, secondary to methotrexate use, improved Pancytopenia, significantly improved Leukocytosis, secondary to Neupogen, resolving Neutropenia, resolved, secondary to methotrexate Electrolyte derangement Eosinophilia, normalized Vascular insufficiency, secondary to multiple comorbid conditions Diabetes mellitus Home Meds Reported Medications Sulfasalazine* (Sulfazine*) 500 Mg Tablet, 500 MG PO BID, TAB 08/24/17 Fluconazole* (Fluconazole*) 200 Mg Tablet, 200 MG PO DAILY, TAB 08/24/17 Calcium Carbonate* (Calcium Carbonate*) 600 MG Ca Tab, 600 MG PO BID, TAB 08/24/17 Ferrous Sulfate* (Ferrous Sulfate*) 325 Mg Tabec, 325 MG PO TID, TAB 08/24/17 Bisoprolol Fumarate* (Bisoprolol Fumarate*) 10 Mg Tablet, 10 MG PO DAILY, TAB 08/24/17 Nystatin (Nystatin) 100,000 Unit/1 Ml Oral.susp, 5 ML PO QID, #60 ML 08/24/17 Insulin Lispro Protamin/Lispro (Humalog Mix 50-50 Vial) 100 Unit/1 Ml Vial, 10 UNIT SQ BID, VIAL 08/24/17 Losartan Potassium* (Losartan Potassium*) 50 Mg Tablet, 50 MG PO DAILY, TAB 08/24/17 Amlodipine Besylate* (Norvasc*) 5 Mg Tablet, 5 MG PO DAILY, TAB 08/24/17 Gabapentin* (Gabapentin*) 300 Mg Capsule, 300 MG PO BID, #60 CAP 08/24/17 Loratadine* (Loratadine*) 10 Mg Tablet, 10 MG PO DAILY, #30 TAB 08/24/17 Omeprazole* (Omeprazole*) 20 Mg Capsule.dr, 20 MG PO DAILY, #30 CAP 08/24/17 Methotrexate* (Methotrexate*) 2.5 Mg Tab, 10 MG PO Q7D, TAB 08/24/17 Primary Care Provider [facility] [place] [facility] Time spent on discharge: > 30 minutes Pending Labs Laboratory Tests Test 09/20/17 17:14 09/20/17 21:24 09/21/17 05:17 09/21/17 08:20 Bedside Glucose 189mg/dL (70-220) 140mg/dL (70-220) 99mg/dL (70-220) Sodium Level 135mmol/L (135-144) Potassium Level 4.8mmol/L (3.5-5.1) Chloride Level 103mmol/L (97-110) Carbon Dioxide Level 27mmol/L (21-31) Anion Gap 10 (8-16) Blood Urea Nitrogen 38mg/dl (7-20) Creatinine 3.33mg/dl (0.44-1.00) Glucose Level 95mg/dl (70-220) Calcium Level 8.7mg/dl (8.4-10.2) Total Bilirubin 0.1mg/dl (0.2-1.3) Direct Bilirubin 0.00mg/dl (0.00-0.20) Indirect Bilirubin 0.1mg/dl (0-1.1) Aspartate Amino Transf (AST/SGOT) 37IU/L (15-46) Alanine Aminotransferase (ALT/SGPT) 31IU/L (13-69) Alkaline Phosphatase 119IU/L (42-121) Total Protein 6.9g/dl (6.1-8.1) Albumin 2.8g/dl (3.3-4.9) Globulin 4.10g/dl (1.3-3.2) Albumin/Globulin Ratio 0.68 Test 09/21/17 12:06 Bedside Glucose 141mg/dL (70-220) GIA DUMONT Sep 21, 2017 14:38
--- NOTE | 2017-09-21 14:38 | DS ---
Date/Time of Note Date/Time of Note DATE: 09/21/17 TIME: 14:38 Discharge Summary Admission/Discharge Info Admit Date/Time Aug 24, 2017 at 19:05 Discharge Date/Time Patient Condition: Stable Hx of Present Illness This is a 61-year-old female with a history of hypertension, insulin-dependent diabetes, CKD who was brought to the ER for left lower leg swelling and redness. Patient was diagnosed with a cellulitis as outpatient and has been taking antibiotic without significant improvement. She reported fever and generalized weakness. When she presented to the ER, she was febrile with a temperature of almost 103. She has a several lab abnormalities including a hemoglobin of 5.7 with MCV of , sodium 128, BUN 44, creatinine 4.8 AST in the 300s and ALT in the 100s, alk phos 174. Also thrombocytopenic with a platelet of 57 and neutropenic with a WBC of 0.7. Left lower extremity ultrasound was negative for DVT. Denied hematemesis, dark stool, BRBPR or vaginal bleeding. Hospital Course Patient is a 61-year-old [facility] female with a past medical history of hypertension, diabetes, CKD, methotrexate use secondary to arthritis who presented to [facility] for lower extremity cellulitis. Patient also had multiple other issues during her prolonged stay here at [facility] including pancytopenia. Multiple consultations were made including vascular surgery, oncology and hematology, cardiology, infectious disease, nephrology. It was found that patient likely had an complication to methotrexate which cause pancytopenia and it was reversed and patient's white count returned to within normal limits. Patient was also treated for cellulitis at the time with IV antibiotics as well as pneumonia. Patient also has a degree of congestive diastolic heart failure and was given the appropriate diuretics. Patient's respiratory status and overall condition improved drastically over the course of this admission and patient will be discharged on 2 L nasal cannula to a [facility] facility where she could obtain physical therapy as she is extremely deconditioned from a prolonged stay. Patient is to continue all medications and follow-up in the outpatient as she has already has a pending appointment with a insurance operations rep and her primary care provider. She will likely need to re-make these appointments. Discharge diagnosis Acute respiratory distress secondary to bilateral pneumonia, pleural effusions Hypertension Left lower extremity cellulitis, resolved Pulmonary edema, resolving Acute kidney injury on chronic kidney disease Acute on chronic diastolic congestive heart failure Mucositis, secondary to methotrexate use, improved Pancytopenia, significantly improved Leukocytosis, secondary to Neupogen, resolving Neutropenia, resolved, secondary to methotrexate Electrolyte derangement Eosinophilia, normalized Vascular insufficiency, secondary to multiple comorbid conditions Diabetes mellitus Home Meds Reported Medications Sulfasalazine* (Sulfazine*) 500 Mg Tablet, 500 MG PO BID, TAB 08/24/17 Fluconazole* (Fluconazole*) 200 Mg Tablet, 200 MG PO DAILY, TAB 08/24/17 Calcium Carbonate* (Calcium Carbonate*) 600 MG Ca Tab, 600 MG PO BID, TAB 08/24/17 Ferrous Sulfate* (Ferrous Sulfate*) 325 Mg Tabec, 325 MG PO TID, TAB 08/24/17 Bisoprolol Fumarate* (Bisoprolol Fumarate*) 10 Mg Tablet, 10 MG PO DAILY, TAB 08/24/17 Nystatin (Nystatin) 100,000 Unit/1 Ml Oral.susp, 5 ML PO QID, #60 ML 08/24/17 Insulin Lispro Protamin/Lispro (Humalog Mix 50-50 Vial) 100 Unit/1 Ml Vial, 10 UNIT SQ BID, VIAL 08/24/17 Losartan Potassium* (Losartan Potassium*) 50 Mg Tablet, 50 MG PO DAILY, TAB 08/24/17 Amlodipine Besylate* (Norvasc*) 5 Mg Tablet, 5 MG PO DAILY, TAB 08/24/17 Gabapentin* (Gabapentin*) 300 Mg Capsule, 300 MG PO BID, #60 CAP 08/24/17 Loratadine* (Loratadine*) 10 Mg Tablet, 10 MG PO DAILY, #30 TAB 08/24/17 Omeprazole* (Omeprazole*) 20 Mg Capsule.dr, 20 MG PO DAILY, #30 CAP 08/24/17 Methotrexate* (Methotrexate*) 2.5 Mg Tab, 10 MG PO Q7D, TAB 08/24/17 Primary Care Provider [facility] Time spent on discharge: > 30 minutes Pending Labs Laboratory Tests Test 09/20/17 17:14 09/20/17 21:24 09/21/17 05:17 09/21/17 08:20 Bedside Glucose 189mg/dL (70-220) 140mg/dL (70-220) 99mg/dL (70-220) Sodium Level 135mmol/L (135-144) Potassium Level 4.8mmol/L (3.5-5.1) Chloride Level 103mmol/L (97-110) Carbon Dioxide Level 27mmol/L (21-31) Anion Gap 10 (8-16) Blood Urea Nitrogen 38mg/dl (7-20) Creatinine 3.33mg/dl (0.44-1.00) Glucose Level 95mg/dl (70-220) Calcium Level 8.7mg/dl (8.4-10.2) Total Bilirubin 0.1mg/dl (0.2-1.3) Direct Bilirubin 0.00mg/dl (0.00-0.20) Indirect Bilirubin 0.1mg/dl (0-1.1) Aspartate Amino Transf (AST/SGOT) 37IU/L (15-46) Alanine Aminotransferase (ALT/SGPT) 31IU/L (13-69) Alkaline Phosphatase 119IU/L (42-121) Total Protein 6.9g/dl (6.1-8.1) Albumin 2.8g/dl (3.3-4.9) Globulin 4.10g/dl (1.3-3.2) Albumin/Globulin Ratio 0.68 Test 09/21/17 12:06 Bedside Glucose 141mg/dL (70-220) GIA DUMONT Sep 21, 2017 14:38
[2017-09-21] MEDS ORDERED: [UNRECOGNIZED DRUG - OTHER] PO (14:43)
[2017-09-21] MEDS ORDERED: POTA20TA15 PO (14:43)
[2017-09-21] MEDS ORDERED: AMLO-147 PO (14:43)
[2017-09-21] MEDS ORDERED: LANT3I SC (14:43)
[2017-09-21] MEDS ORDERED: NOVO3I SC (14:43)
[2017-09-21] MEDS ORDERED: EPO10ESRD SC (14:43)
[2017-09-21] MEDS ORDERED: LAS20 PO (14:43)
[2017-09-21] MEDS ORDERED: BISO5TAB21 PO (14:43)
[2017-09-21] MEDS ORDERED: HYDR-3672 PO (14:43)
--- NOTE | 2017-09-21 15:48 | PN ---
Date/Time of Note Date/Time of Note DATE: 09/21/17 TIME: 15:47 Assessment/Plan Lines/Catheters IV Catheter Type (from [facility]): Saline Lock Reina in Place (from [facility]): No Assessment/Plan Chief Complaint/Hosp Course 1. Left lower extremity cellulitis and edema with history of diabetes;CT lower extremity without abscess: much improved -continue supportive measures -elevate above heart level -local care for skin dryness with moisturizer 2. Leukocytosis, without fevers, with history of leukopenia: normalized; afebrile -per heme 3. Diabetes -Nutrition medication optimization -Encourage weight loss 4. Hypertension -Nutrition medication optimization -Encourage weight loss 5. Chronic kidney disease: -Judicious fluid management -Avoid nephrotoxic agents 6. Bilateral ground glass changes on CT: f/u cxr: Improving bilateral heterogeneous air space opacities and interval decrease in size of the small bilateral pleural effusions; breathing comfortably, -s/p abx -pulm toilette 7. Hypoalbuminemia with hypocalcemia -Nutritional optimization 8. Anemia: no acute bleed noted -monitor -transfuse as needed -per heme 9. Electrolyte imbalance -optimize lytes 10. Pl Effusion: as above; no sob -diuresis -supportive Thank you, Problems: Subjective 24 Hr Interval Summary Appears comfortable. No fevers, chills, sob, congested cough, cp, palpitations, walsh, dizziness, n/v/d/dysuria. Left leg edema resolved. Discoloration improved. Exam/Review of Systems Vital Signs Vitals Vital Signs Date Time Temp Pulse Resp B/P Pulse Ox O2 Delivery O2 Flow Rate FiO2 09/21/17 13:53 97.5 78 20 118/57 100 09/21/17 12:53 Nasal Cannula 2.0 09/18/17 18:00 28 Intake and Output 09/20/17 09/20/17 09/21/17 14:59 22:59 06:59 Intake Total 120 ml Output Total 300 ml Balance -180 ml Exam Free Text/Dictation Constitutional: obese, other (Awake), No distress Psych: nl mood/affect, No anxiety Head: atraumatic, normocephalic Eyes: EOMI, PERRL, nl conjunctiva, No icteric ENMT: mucosa pink and dry, nl external ears & nose, nl lips & teeth Neck: non-tender, supple, No jvd Respiratory: Breathing nonlabored, No congested cough; nc Cardiovascular: no edema, regular rate and rhythm Gastrointestinal: non-tender, soft, No rebound or guarding Musculoskeletal: joint tenderness, No nl extremities to inspection Extremities: no edema, normal pulses, tenderness, No calf tenderness Neurological: nl mental status, nl strength Skin: rash or lesions (LLE improved color), No diaphoresis, No nl turgor Lymph: nl lymph nodes, nontender Results Result Diagram: 09/20/17 0537 09/21/17 0517 BOB FUNEZ MD Sep 21, 2017 15:48
[2017-09-21] MEDS: EPOETIN 10000 UNITS/1 ML INJ (ESRD) SC SCH (17:21)
[2017-09-21 17:22] VITALS: BP 147/68; PULSE 75
== END 2017-09-21 21:10 | DRG 871 ==
LOC: E/R 18:20 → MS3 19:05 → MS2 08-27 01:00 → TEL 09-05 00:25 → MS2 09-13 06:52
PROVIDERS: ADMIT Internal Medicine; ATTEND Internal Medicine
PROC: 30233R1 Transfusion of Nonautologous Platelets into Peripheral Vein, Percutaneous Approach (ICD-10-PCS; principal; 2017-08-24)
PROC: 30233N1 Transfusion of Nonautologous Red Blood Cells into Peripheral Vein, Percutaneous Approach (ICD-10-PCS; 2017-08-24)
DX: A41.9 Sepsis, unspecified organism (principal); N17.0 Acute kidney failure with tubular necrosis; J96.01 Acute respiratory failure with hypoxia; I50.33 Acute on chronic diastolic (congestive) heart failure; D61.811 Other drug-induced pancytopenia; J81.1 Chronic pulmonary edema; J18.9 Pneumonia, unspecified organism; I13.0 Hypertensive heart and chronic kidney disease with heart failure and stage 1 through stage 4 chronic kidney disease, or unspecified chronic kidney disease; N17.9 Acute kidney failure, unspecified; I24.8 Other forms of acute ischemic heart disease; E87.2 Acidosis; E87.1 Hypo-osmolality and hyponatremia; L03.116 Cellulitis of left lower limb; E11.51 Type 2 diabetes mellitus with diabetic peripheral angiopathy without gangrene; E11.42 Type 2 diabetes mellitus with diabetic polyneuropathy; E11.21 Type 2 diabetes mellitus with diabetic nephropathy; E11.22 Type 2 diabetes mellitus with diabetic chronic kidney disease; D89.9 Disorder involving the immune mechanism, unspecified; D64.9 Anemia, unspecified; N18.9 Chronic kidney disease, unspecified; K12.30 Oral mucositis (ulcerative), unspecified; I70.293 Other atherosclerosis of native arteries of extremities, bilateral legs; I35.0 Nonrheumatic aortic (valve) stenosis; R60.0 Localized edema; E88.09 Other disorders of plasma-protein metabolism, not elsewhere classified; E83.51 Hypocalcemia; T45.1X5A Adverse effect of antineoplastic and immunosuppressive drugs, initial encounter; Z79.899 Other long term (current) drug therapy; Z79.4 Long term (current) use of insulin
CPT/HCPCS: 36415; 36430; 36600; 71010; 71250; 73590; 73700; 76700; 80048; 80053; 80061; 80069; 80202; 80299; 81001; 81003; 82040; 82436; 82550; 82553; 82570; 82607; 82668; 82728; 82746; 82784; 82803; 82947; 82962; 83010; 83036; 83540; 83605; 83615; 83735; 83880; 83970; 84100; 84133; 84300; 84484; 84560; 85025; 85045; 85610; 85730; 86038; 86160; 86320; 86325; 86430; 86592; 86635; 86644; 86703; 86704; 86706; 86709; 86803; 86850; 86860; 86870; 86880; 86900; 86901; 86920; 86945; 86971; 87040; 87086; 87340; 89190; 90686; 92526; 92610; 93005; 93306; 93922; 93970; 93971; 94640; 94664; 94667; 94668; 96374; 96375; 97110; 97116; 97163; 97530; J1940; J0360; J0692; J1644; J1815; J2185; J2270; J2405; J2543; J2920; J3370; J3475; J3480; J7030; J7040; J7042; J7050; J7070; J7512; P9016; P9035; Q4081

== ENCOUNTER 2017-11-05 23:29 | Inpatient (IN) | END 2017-12-08 21:45 | DRG 291 ==

== ENCOUNTER 2017-12-18 14:33 | Inpatient (IN) | END 2018-01-12 17:33 | DRG 802 ==

== ENCOUNTER 2018-01-15 13:22 | Inpatient (IN) | END 2018-01-27 02:30 | disposition EXP | DRG 871 ==